=== PATIENT | female | born 1940 | race Caucasian/White ===

== ENCOUNTER 2017-11-23 13:24 | Outpatient (RCR) | payer MEDICARE, OTHER, SELFPAY ==
[2017-11-23 13:41] LABS: Prothrombin Time Fingerstick 19.9 SEC (11.9-14.4)
== END 2017-11-23 14:00 | disposition home or self-care (01) ==
LOC: LAB 13:24
PROVIDERS: Family Provider Internal Medicine; PCP Internal Medicine; Visit Provider Internal Medicine
DX: I82.409 Acute embolism and thrombosis of unspecified deep veins of unspecified lower extremity (principal); Z79.01 Long term (current) use of anticoagulants
CPT/HCPCS: 36416; 85610

== ENCOUNTER 2018-01-02 13:15 | Outpatient (RCR) | payer MEDICARE, OTHER, SELFPAY ==
[2018-01-02 13:31] LABS: Prothrombin Time Fingerstick 18.2 SEC (11.9-14.4)
== END 2018-01-02 14:00 | disposition home or self-care (01) ==
LOC: LAB 13:15
PROVIDERS: Family Provider Internal Medicine; PCP Internal Medicine; Visit Provider Internal Medicine
DX: Z79.01 Long term (current) use of anticoagulants (principal)
CPT/HCPCS: 36416; 85610

== ENCOUNTER 2018-01-23 14:17 | Outpatient (RCR) | payer MEDICARE, OTHER, SELFPAY ==
[2018-01-23 14:36] LABS: Prothrombin Time Fingerstick 20.3 SEC (11.9-14.4)
== END 2018-01-23 15:00 | disposition home or self-care (01) ==
LOC: LAB 14:17
PROVIDERS: Family Provider Internal Medicine; PCP Internal Medicine; Visit Provider Internal Medicine
DX: Z79.01 Long term (current) use of anticoagulants (principal)
CPT/HCPCS: 36416; 85610

== ENCOUNTER 2018-04-12 13:02 | Outpatient (RCR) | payer MEDICARE, OTHER, SELFPAY ==
[2018-04-12 14:02] LABS: Absolute Lymphocyte Count 1.53 X10^3/ul (0.83-4.51); Absolute Neutrophil Count 6.1 X10^3/uL (2.0-7.7); Basophil# 0.02 X10^3/uL; Basophil% 0.2 % (0-1); Eosinophil# 0.13 X10^3/uL; Eosinophils% 1.5 % (0-5); Hematocrit 34.1 % (37-47); Hemoglobin 11.2 g/dl (12.0-15.0); Lymphocyte # 1.53 X10^3/ul (4.0); Lymphocyte % 17.9 % (19-41); Mean Corp Hgb Conc 32.8 g/gl (32-36); Mean Corpuscular Hgb 28.5 pg (27.0-32.0); Mean Corpuscular Volume 86.8 fL (81-99); Mean Platelet Vol. 10.8 fl (6.2-12.0); Monocyte# 0.76 X10^3/uL; Monocyte% 8.9 % (0-10); Neutrophil # 6.09 X10^3/uL (2.7-7.7); Neutrophil % 71.4 % (47-70); POSITIVE COUNT NO; POSITIVE DIFFERENTIAL NO; POSITIVE MORPHOLOGY NO; Platelet Count 164 K/mm3 (150-450); RBC Distribution Width CV 13.8 % (11.6-14.6); RBC Distribution Width SD 44.1 fl (35.1-43.9); Red Blood Count 3.93 M/mm3 (4.2-5.4); White Blood Count 8.5 K/mm3 (4.4-11.0)
[2018-04-12 14:07] LABS: Prothrombin Time (Protime)PT. 22.9 SECONDS (11.7-14.9)
[2018-04-12 14:28] LABS: Hemoglobin A1c 6.8 % (4.2-6.3)
[2018-04-12 14:37] LABS: ALB/GLOB Ratio 1.2 RATIO (0.9-2.4); AST(SGOT) 17 U/L (15-37); Alanine Aminotransfer ALT/SGPT 24 U/L (13-56); Albumin, Serum 3.5 g/dL (3.2-5.0); Alkaline Phosphatase 83 U/L (45-117); Anion Gap 10 (5-15); BUN 29 mg/dL (7-18); BUN/Creat Ratio 15.6 RATIO (10-20); Calcium,Total 8.1 mg/dL (8.5-10.1); Chloride 99 mmol/L (98-107); Creatinine, Serum 1.86 mg/dL (0.55-1.02); EST Glomerular Filtration Rate 28 mL/min (>60); Est Glom Filt Rate - Afr Amer 34 mL/min (>60); Globulin 2.9 g/dL (2.2-4.2); Glucose 137 mg/dL (74-106); Potassium 4.7 mmol/L (3.5-5.1); Protein, Total 6.4 g/dL (6.4-8.2); Sodium Level 135 mmol/L (136-145)
== END 2018-04-12 14:00 | disposition home or self-care (01) ==
LOC: LAB 13:02
PROVIDERS: Family Provider Internal Medicine; PCP Internal Medicine; Visit Provider Internal Medicine
DX: E11.22 Type 2 diabetes mellitus with diabetic chronic kidney disease (principal); N18.3 Chronic kidney disease, stage 3 (moderate); Z79.01 Long term (current) use of anticoagulants
CPT/HCPCS: 80053; 83036; 85025; 85610

== ENCOUNTER → 2018-05-24 12:15 | Outpatient (CLI) | payer MEDICARE, OTHER, SELFPAY ==
[2018-05-24 14:00] LABS: Hematocrit 37.7 % (37-47); Hemoglobin 11.8 g/dl (12.0-15.0); Mean Corp Hgb Conc 31.3 g/gl (32-36); Mean Corpuscular Hgb 28.3 pg (27.0-32.0); Mean Corpuscular Volume 90.4 fL (81-99); Mean Platelet Vol. 10.6 fl (6.2-12.0); Platelet Count 198 K/mm3 (150-450); RBC Distribution Width CV 14.4 % (11.6-14.6); RBC Distribution Width SD 47.5 fl (35.1-43.9); Red Blood Count 4.17 M/mm3 (4.2-5.4); White Blood Count 12.9 K/mm3 (4.4-11.0)
[2018-05-24 14:02] LABS: Scan Indicated on CBC? Y/N NO
[2018-05-24 14:06] LABS: Microalbumin:Creatinine Ratio 26.4 mg/g CRE (<30 mg/g CRE)
[2018-05-24 14:09] LABS: Albumin, Serum 3.4 g/dL (3.2-5.0); BUN 36 mg/dL (7-18); BUN/Creat Ratio 22.6 RATIO (10-20); Calcium,Total 8.1 mg/dL (8.5-10.1); Chloride 105 mmol/L (98-107); Creatinine, Serum 1.59 mg/dL (0.55-1.02); EST Glomerular Filtration Rate 34 mL/min (>60); Est Glom Filt Rate - Afr Amer 41 mL/min (>60); Glucose 131 mg/dL (74-106); Phosphorus 2.8 mg/dL (2.5-4.9); Potassium 4.5 mmol/L (3.5-5.1); Sodium Level 138 mmol/L (136-145)
[2018-05-24 14:19] LABS: Vitamin D,25 Hydroxy 29.5 ng/mL (29.95-100.01)
[2018-05-24 14:20] LABS: PTHIN 186.4 pg/mL (18.4-80.1)
== END ==
PROVIDERS: Family Provider Internal Medicine; PCP Internal Medicine; Visit Provider Internal Medicine Nephrology
DX: N18.3 Chronic kidney disease, stage 3 (moderate) (principal)
CPT/HCPCS: 36415; 80069; 82043; 82306; 82570; 83970; 85027

== ENCOUNTER 2018-05-29 14:50 | Emergency (ER) | payer MEDICARE, OTHER, SELFPAY ==
[2018-05-29 14:51] VITALS: BP 125/70; PULSE 83; RESP 16; TEMP 36.7; O2SAT 97; BMI 16.5
--- NOTE | 2018-05-29 15:24 | ED.DCSUM_ITS ---
- ER Visit Summary Date of Service: 05/29/18 Chief Complaint: Generalized weakness History of Present Illness: The patient is a 77 F with generalized weakness for about 3 weeks. Apparently she was placed on azithromycin 3 times a week for a cough, she developed diarrhea, she is lightheaded, and about 6 days ago had an episode of fever which was 100.8?F this has not happened since then. Her biggest problem is generalized weakness, she has no chest pain shortness of breath she still has a cough she has not had diarrhea recently, she stopped they are a azithromycin as of 3 days ago. She called her physician who directed her to the emergency department. Physical Examination: Not appear in acute distress. Moist mucous membranes, no obvious facial deformity No C-spine tenderness supple neck. Regular rate and rhythm without any obvious murmurs Clear lungs bilaterally speaking in full sentences without any obvious respiratory distress Abdomen soft and nontender no guarding or rebound Moves all extremities without any difficulty or pain. Skin does not show any obvious rashes or lesions, no trauma. Alert oriented ?3 with no gross focal deficit Emergency Department Course and Treatment: Is unremarkable workup, she does have a urinary tract infection which will be treated. She is to follow-up with her PCP for further evaluation. I am unsure about the reason she was placed on azithromycin 3 times a week, but this can be solved with her PCP. At this time she is stable for discharge. Disposition: [Discharge stable condition] Impression: [Generalized weakness Urinary tract infection] This note was generated with [employer] dictation software. It may contain incorrect words, spelling, and punctuation that were not noted in review of the chart prior to signing ED Disposition - Plan for ED Patient: Chief Complaint: General Illness Referrals: Yudith Rosales [Primary Care Provider] -
--- NOTE | 2018-05-29 15:27 | RAD_ITS ---
STUDY: X-RAY CHEST REASON FOR EXAM: Female, 77 years old. Cough, weakness TECHNIQUE: Portable chest upright COMPARISON: 06/07/2016 chest x-ray, 03/24/2015 CT chest. FINDINGS: The patient is slightly rotated accounting for the differential density of the lung hernandez. Diffuse hyperinflation and hyperlucency with flattening of the hemidiaphragms, mild diffuse coarsening of pulmonary interstitium, consistent with underlying COPD/emphysema. A few small pulmonary nodules in the right and left upper lung are stable. A larger pulmonary nodule measuring 9.9 mm seen on the prior CT study of 2014 is not apparent on this chest x-ray. The lungs are otherwise clear. No effusion or pneumothorax. Normal cardiomediastinal silhouette, aniya and pleural margins. No acute osseous or upper abdominal process. RAD/Chest 1 View (Portable) IMPRESSION: Small pulmonary nodules of the right and left upper lung in a pattern that appears to be generally stable compared to prior imaging. 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 Electronically Signed: Allan Yap, at 16:31 EDT Tel , Service support ,
[2018-05-29 16:03] LABS: Absolute Lymphocyte Count 1.49 X10^3/ul (0.83-4.51); Absolute Neutrophil Count 6.2 X10^3/uL (2.0-7.7); Basophil# 0.01 X10^3/uL; Basophil% 0.1 % (0-1); Eosinophil# 0.16 X10^3/uL; Eosinophils% 1.9 % (0-5); Hematocrit 34.3 % (37-47); Hemoglobin 11.2 g/dl (12.0-15.0); Lymphocyte # 1.49 X10^3/ul (4.0); Lymphocyte % 17.7 % (19-41); Mean Corp Hgb Conc 32.7 g/gl (32-36); Mean Corpuscular Hgb 29.1 pg (27.0-32.0); Mean Corpuscular Volume 89.1 fL (81-99); Monocyte# 0.59 X10^3/uL; Neutrophil # 6.15 X10^3/uL (2.7-7.7); Neutrophil % 73.2 % (47-70); Platelet Count 147 K/mm3 (150-450); RBC Distribution Width CV 13.5 % (11.6-14.6); RBC Distribution Width SD 43.5 fl (35.1-43.9); Red Blood Count 3.85 M/mm3 (4.2-5.4); White Blood Count 8.4 K/mm3 (4.4-11.0)
[2018-05-29 16:09] LABS: POSITIVE COUNT NO; POSITIVE DIFFERENTIAL NO; POSITIVE MORPHOLOGY NO
[2018-05-29 16:10] LABS: AST(SGOT) 13 U/L (15-37); Alanine Aminotransfer ALT/SGPT 21 U/L (13-56); Albumin, Serum 3.3 g/dL (3.2-5.0); Alkaline Phosphatase 72 U/L (45-117); Anion Gap 6 (5-15); BUN 24 mg/dL (7-18); BUN/Creat Ratio 14.7 RATIO (10-20); Calcium,Total 8.2 mg/dL (8.5-10.1); Chloride 106 mmol/L (98-107); Creatinine, Serum 1.63 mg/dL (0.55-1.02); EST Glomerular Filtration Rate 33 mL/min (>60); Est Glom Filt Rate - Afr Amer 39 mL/min (>60); Estimated Creatinine Clearance 21.45 ml/min; Globulin 3.4 g/dL (2.2-4.2); Glucose 97 mg/dL (74-106); Potassium 4.8 mmol/L (3.5-5.1); Protein, Total 6.7 g/dL (6.4-8.2); Sodium Level 137 mmol/L (136-145)
[2018-05-29] MEDS: 0.9% Normal Saline 1,000 ML 1000 ML IV (16:11)
[2018-05-29 16:24] LABS: Mucous, Urine 0 SEEN /hpf (<or=2+)
[2018-05-29 16:27] LABS: Color, Urine Yellow (Yellow); Glucose, Dipstick Normal (Normal); Ketone-Dipstick Negative (Negative); Leukocyte Esterase-Dipstick 500 /ul (Negative); Nitrite-Dipstick Negative (Negative); Occult Blood-Urine 10 /ul (Negative); Protein-Dipstick 30 mg/dl (Negative); Urine Bilirubin Dipstick Negative (Negative); Urine Clarity Cloudy (Clear); Urine Urobilinogen Normal (Normal); Urine pH 6.5 (5.0 - 8.0)
[2018-05-29 16:34] LABS: White Blood Cells 10-25 SEEN /hpf (0-5)
[2018-05-29 16:35] LABS: Bacteria 3+ /hpf (None Seen); Red Blood Cells-Urine 5-10 SEEN /hpf (0-5); Squamous Epithelial Cells - UA 25-50 SEEN /hpf (5-10)
--- NOTE | 2018-05-29 18:02 | ED.DEP ---
ED Disposition - Plan for ED Patient: Disposition: Home or Assisted Living Chief Complaint: General Illness Instructions: ED UTI Cystitis Female, Dehydration Prescriptions: Nitrofurantoin Macrocrystal [Nitrofurantoin] 100 mg PO BID #20 cap Referrals: Yudith Rosales [Primary Care Provider] - 3-5 Days
[2018-05-29 18:12] VITALS: BP 124/64; PULSE 68; RESP 18; O2SAT 97
== END 2018-05-29 18:13 | disposition home or self-care (01) ==
PROVIDERS: Emergency Provider Emergency Medicine; Family Provider Internal Medicine; PCP Internal Medicine
DX: R53.1 Weakness (principal); N39.0 Urinary tract infection, site not specified; E86.0 Dehydration; I12.9 Hypertensive chronic kidney disease with stage 1 through stage 4 chronic kidney disease, or unspecified chronic kidney disease; N18.9 Chronic kidney disease, unspecified; J44.9 Chronic obstructive pulmonary disease, unspecified; K21.9 Gastro-esophageal reflux disease without esophagitis; Z79.01 Long term (current) use of anticoagulants; Z79.899 Other long term (current) drug therapy; Z72.0 Tobacco use
CPT/HCPCS: 71045; 80053; 81001; 84484; 85025; 96360; 96361; 99283; J7030; A4216

== ENCOUNTER 2018-06-14 12:54 | Outpatient (RCR) | payer MEDICARE, OTHER, SELFPAY ==
[2018-06-14 13:21] LABS: Prothrombin Time Fingerstick 25.5 SEC (11.9-14.4)
== END 2018-06-14 14:00 | disposition home or self-care (01) ==
LOC: LAB 12:54
PROVIDERS: Family Provider Internal Medicine; PCP Internal Medicine; Visit Provider Internal Medicine
DX: Z79.01 Long term (current) use of anticoagulants (principal)
CPT/HCPCS: 36416; 85610

== ENCOUNTER 2018-07-12 14:11 | Outpatient (RCR) | payer MEDICARE, OTHER, SELFPAY | END 2018-07-12 16:00 | disposition home or self-care (01) | LOC: LAB 14:11 | PROVIDERS: Family Provider Internal Medicine; PCP Internal Medicine; Visit Provider Internal Medicine | DX: Z79.01 Long term (current) use of anticoagulants (principal) | CPT/HCPCS: 36416; 85610 ==

== ENCOUNTER 2018-08-11 13:01 | Outpatient (RCR) | payer MEDICARE, OTHER, SELFPAY ==
[2018-08-11 13:16] LABS: Prothrombin Time Fingerstick 30.5 SEC (11.9-14.4)
== END 2018-08-11 14:00 | disposition home or self-care (01) ==
LOC: LAB 13:01
PROVIDERS: Family Provider Internal Medicine; PCP Internal Medicine; Referring Provider Internal Medicine; Visit Provider Internal Medicine
DX: Z79.01 Long term (current) use of anticoagulants (principal)
CPT/HCPCS: 36416; 85610

== ENCOUNTER 2018-09-18 11:02 | Outpatient (RCR) | payer MEDICARE, OTHER, SELFPAY ==
[2018-09-18 11:16] LABS: Prothrombin Time Fingerstick 32.5 SEC (11.9-14.4)
== END 2018-09-22 10:35 | disposition home or self-care (01) ==
LOC: LAB 11:02
PROVIDERS: Family Provider Internal Medicine; PCP Internal Medicine; Referring Provider Internal Medicine; Visit Provider Internal Medicine
DX: Z79.01 Long term (current) use of anticoagulants (principal)
CPT/HCPCS: 36416; 85610

== ENCOUNTER 2018-10-11 13:55 | Outpatient (RCR) | payer MEDICARE, OTHER, SELFPAY ==
[2018-08-28 13:56] VITALS: BMI 16.5
[2018-10-11 14:11] LABS: Prothrombin Time Fingerstick 37.6 SEC (11.9-14.4)
== END 2018-10-11 14:00 | disposition home or self-care (01) ==
LOC: LAB 13:55
PROVIDERS: Family Provider Internal Medicine; PCP Internal Medicine; Referring Provider Internal Medicine; Visit Provider Internal Medicine
DX: I82.409 Acute embolism and thrombosis of unspecified deep veins of unspecified lower extremity (principal); Z79.01 Long term (current) use of anticoagulants
CPT/HCPCS: 36416; 85610

== ENCOUNTER 2018-11-07 12:27 | Outpatient (RCR) | payer MEDICARE, OTHER, SELFPAY ==
[2018-08-28 13:56] VITALS: BMI 16.5
[2018-11-07 14:10] LABS: Protein, Urine (Random) 34.9 mg/dL (<11.9); Protein:Creat Ratio 273 mg/g CRE (0-200)
[2018-11-07 14:13] LABS: Hematocrit 37.7 % (37-47); Mean Corp Hgb Conc 31.8 g/gl (32-36); Mean Corpuscular Hgb 29.2 pg (27.0-32.0); Mean Corpuscular Volume 91.7 fL (81-99); Mean Platelet Vol. 10.3 fl (6.2-12.0); Platelet Count 217 K/mm3 (150-450); RBC Distribution Width CV 13.7 % (11.6-14.6); RBC Distribution Width SD 45.9 fl (35.1-43.9); Red Blood Count 4.11 M/mm3 (4.2-5.4); White Blood Count 13.2 K/mm3 (4.4-11.0)
[2018-11-07 14:14] LABS: Scan Indicated on CBC? Y/N NO
[2018-11-07 14:23] LABS: International Normalized Ratio 3.5; Prothrombin Time (Protime)PT. 35.3 SECONDS (11.7-14.9)
[2018-11-07 14:28] LABS: Hemoglobin A1c 8.3 % (4.2-6.3)
[2018-11-07 14:29] LABS: Albumin, Serum 3.3 g/dL (3.2-5.0); BUN 32 mg/dL (7-18); Calcium,Total 8.7 mg/dL (8.5-10.1); Chloride 104 mmol/L (98-107); EST Glomerular Filtration Rate 26 mL/min (>60); Est Glom Filt Rate - Afr Amer 31 mL/min (>60); Glucose 249 mg/dL (74-106); Phosphorus 3.2 mg/dL (2.5-4.9); Potassium 4.3 mmol/L (3.5-5.1); Sodium Level 138 mmol/L (136-145)
[2018-11-07 14:36] LABS: PTHIN 45.4 pg/mL (18.4-80.1)
[2018-11-07 14:38] LABS: Vitamin D,25 Hydroxy 24.8 ng/mL (29.95-100.01)
== END 2018-11-07 13:27 | disposition home or self-care (01) ==
LOC: LAB 12:27
PROVIDERS: Family Provider Internal Medicine; PCP Internal Medicine; Referring Provider Internal Medicine; Visit Provider Internal Medicine
DX: I82.409 Acute embolism and thrombosis of unspecified deep veins of unspecified lower extremity (principal); Z79.01 Long term (current) use of anticoagulants; E11.9 Type 2 diabetes mellitus without complications; N18.3 Chronic kidney disease, stage 3 (moderate)
CPT/HCPCS: 36415; 80069; 82306; 82570; 83036; 83970; 84156; 85027; 85610

== ENCOUNTER 2018-12-24 12:07 | Emergency (ER) | payer MEDICARE, OTHER, SELFPAY ==
[2018-12-24 12:08] VITALS: BP 137/78; PULSE 81; RESP 16; TEMP 36.6; O2SAT 98; BMI 16.2
--- NOTE | 2018-12-24 13:20 | RAD_ITS ---
STUDY: X-RAY CHEST REASON FOR EXAM: Female, 78 years old. Cough and fever TECHNIQUE: Frontal and lateral views of the chest were obtained. COMPARISON: May 29, 2018 FINDINGS: Lines and tubes: None. Lungs: Hyperinflated. No focal airspace opacities. Minimal scarring in the left apex. Pleura: No demonstrated abnormality. Mediastinum/aniya: Unremarkable. Cardiovascular: Normal size cardiac silhouette. Central vascularity unremarkable. Atherosclerotic calcifications in the thoracic aorta. Soft tissues: Unremarkable. Bones: Mild degenerative changes in spine and shoulders. Upper abdomen: No demonstrated abnormality. RAD/Chest PA and Lateral IMPRESSION: No evidence of focal consolidation or pleural effusion. Stable COPD. Electronically Signed: Judith Adhikari MD at 13:40 EST , Service support ,
--- NOTE | 2018-12-24 13:29 | ED.DCSUM_ITS ---
- ER Visit Summary Date of Service: 12/24/18 Chief Complaint: Cough and generalized weakness History of Present Illness: The patient is a 78 F past medical history diet- controlled diabetes, COPD and renal insufficiency. Prior DVT on Coumadin. States for about a week she has had a cough of yellowish sputum. With mild shortness of breath. Denies any nausea, vomiting diarrhea. No fever. States that she was seen in urgent care today had a negative checks x-ray done there and was sent of the ER. She states she feels weak all over. She denies any chest pain. Physical Examination: Older female. Vital signs are stable. Blood pressure 1 3778. Pulse ox 90% on room air no signs of hypoxia. Afebrile. She is in no distress. HEENT exam dry mucous membranes. Otherwise unremarkable. Neck nontender. No JVD. Lungs dry hacking cough but no rales, rhonchi or wheezing. Equal symmetrical. Heart regular rate and rhythm no murmur. Abdomen is soft and nontender. Normal bowel sounds no peritoneal signs. She is moving all 4 extremities. Calves are nontender. There is no edema. Neurologically she is awake and alert with no focal motor deficits. Test Results: Chest x-ray chronic changes consistent with COPD no acute process no infiltrate. Read both myself and the radiologist. CBC shows a normal white count of 10. Hemoglobin 11.6 which is around the patient's baseline. No bands. Electrolytes BUN 35 creatinine 2.54 she has chronic renal insufficiency. Gap is normal. INR is 2.7 she is on Coumadin. Emergency Department Course and Treatment: Patient be treated with IV fluids for clinical dehydration. Repeat exam patient is doing well at 1517. She got up out of bed and is ambulating the hallway with the nurse without any difficulty and she wants to be discharged to home. She and I and her family went over her test results. We will increase her prednisone 40 mg a day for 1 week. She will be started on Zithromax Z-PATSY given first dose in the ER. And follow-up with her primary care physician. Treatment Plan: Prednisone 40 mg a day. For 7 days. Zithromax Z-PATSY. Follow-up with a PCP. Disposition: dc Impression: Acute cough secondary to acute bronchitis Acute dehydration Acute exacerbation COPD Anticoagulated on Coumadin History of renal insufficiency This note was generated with Dragon dictation software. It may contain incorrect words, spelling, and punctuation that were not noted in review of the chart prior to signing ED Disposition - Plan for ED Patient: Referrals: Yudith Rosales [Primary Care Provider] -
[2018-12-24 13:41] LABS: Absolute Lymphocyte Count 1.12 X10^3/ul (0.83-4.51); Absolute Neutrophil Count 9.2 X10^3/uL (2.0-7.7); Basophil# 0.01 X10^3/uL; Basophil% 0.1 % (0-1); Hematocrit 36.8 % (37-47); Hemoglobin 11.6 g/dl (12.0-15.0); Lymphocyte # 1.12 X10^3/ul (4.0); Lymphocyte % 10.5 % (19-41); Mean Corp Hgb Conc 31.5 g/gl (32-36); Mean Corpuscular Hgb 28.6 pg (27.0-32.0); Mean Corpuscular Volume 90.6 fL (81-99); Mean Platelet Vol. 9.6 fl (6.2-12.0); Monocyte# 0.26 X10^3/uL; Monocyte% 2.4 % (0-10); Neutrophil # 9.21 X10^3/uL (2.7-7.7); Neutrophil % 86.7 % (47-70); Platelet Count 197 K/mm3 (150-450); RBC Distribution Width SD 46.3 fl (35.1-43.9); Red Blood Count 4.06 M/mm3 (4.2-5.4); White Blood Count 10.6 K/mm3 (4.4-11.0)
[2018-12-24 13:44] LABS: Anion Gap 10 (5-15); BUN 35 mg/dL (7-18); BUN/Creat Ratio 13.8 RATIO (10-20); Calcium,Total 8.8 mg/dL (8.5-10.1); Chloride 105 mmol/L (98-107); Creatinine, Serum 2.54 mg/dL (0.55-1.02); EST Glomerular Filtration Rate 20 mL/min (>60); Est Glom Filt Rate - Afr Amer 24 mL/min (>60); Estimated Creatinine Clearance 13.41 ml/min; Glucose 178 mg/dL (74-106); POSITIVE COUNT NO; POSITIVE DIFFERENTIAL NO; POSITIVE MORPHOLOGY NO; Potassium 4.7 mmol/L (3.5-5.1); Sodium Level 140 mmol/L (136-145)
[2018-12-24] MEDS: 0.9% Normal Saline 1,000 ML 1000 ML IV (13:46)
[2018-12-24 13:47] LABS: International Normalized Ratio 2.7; Prothrombin Time (Protime)PT. 28.8 SECONDS (11.7-14.9)
[2018-12-24 13:48] VITALS: BP 157/72; PULSE 75; RESP 18; TEMP 37; O2SAT 95
[2018-12-24 15:00] VITALS: BP 172/75; PULSE 94; RESP 20; TEMP 36.8; O2SAT 95
--- NOTE | 2018-12-24 15:24 | ED.DEP ---
ED Disposition - Plan for ED Patient: Disposition: Home or Assisted Living Instructions: ED COPD Flare Prescriptions: Azithromycin [Zithromax] 250 mg PO DAILY #4 tab Prednisone [Deltasone] 40 mg PO DAILY 7 Days #10 tab Referrals: Yudith Rosales [Primary Care Provider] - Additional Instructions: Follow-up your primary care physician this week. Return if feeling worse. Prednisone 40 mill grams a day for 1 week. Zithromax antibiotic start tomorrow we will give your first dose here prior to discharge.
[2018-12-24] MEDS: Azithromycin 250 MG Tablet 500 MG PO (15:35)
[2018-12-24] MEDS: predniSONE 20 MG Tablet 40 MG PO (15:36)
== END 2018-12-24 15:43 | disposition home or self-care (01) ==
PROVIDERS: Emergency Provider Emergency Medicine; Family Provider Internal Medicine; PCP Internal Medicine
DX: J44.1 Chronic obstructive pulmonary disease with (acute) exacerbation (principal); J20.9 Acute bronchitis, unspecified; J44.0 Chronic obstructive pulmonary disease with (acute) lower respiratory infection; N28.9 Disorder of kidney and ureter, unspecified; E86.0 Dehydration; Z86.718 Personal history of other venous thrombosis and embolism; Z79.01 Long term (current) use of anticoagulants; Z79.899 Other long term (current) drug therapy; Z72.0 Tobacco use
CPT/HCPCS: 71046; 80048; 85025; 85610; 96360; 96361; 99285; J7030; J7050; A4216

== ENCOUNTER 2019-01-17 11:46 | Emergency (ER) | payer MEDICARE, OTHER, SELFPAY ==
[2019-01-17] VITALS (7 sets, daily range): BP systolic 85–149; BP diastolic 55–87; PULSE 69–90; RESP 16–22; TEMP 36.8; O2SAT 95–98; BMI 16.5
--- NOTE | 2019-01-17 11:55 | EKG12_ITS ---
Test Reason : LIGHTHEADNESS Blood Pressure : / mmHG Vent. Rate : 080 BPM Atrial Rate : 080 BPM P-R Int : 128 ms QRS Dur : 082 ms QT Int : 388 ms P-R-T Axes : 082 078 090 degrees QTc Int : 447 ms Normal sinus rhythm Left ventricular hypertrophy with repolarization abnormality Abnormal ECG Confirmed by REYMUNDO GARAY, YANELY ([id number]), photograph editor LUIS MENDEZ ([id number]) on 01/18/2019 1:12:10 PM Referred By: PENG/DONELL Confirmed By:YANELY DWYER MD
--- NOTE | 2019-01-17 11:58 | NURSING ---
NO OLD EKGS
--- NOTE | 2019-01-17 12:08 | ED.DCSUM_ITS ---
History of Present Illness Chief Complaint: General Illness Detail of Chief Complaint: Weakness, lightheadedness and low blood pressure Informant: Patient Onset: Weeks - Approximately 1 week Timing: Continuous Quality: Lightheadedness with standing Location: Not applicable Current Severity: Mild Maximum Severity: Severe Worsened by: Change in position sitting to standing or supine to sitting Relieved by: Nothing Associated Symptoms: Patient also reports nonproductive cough. Narrative: Patient is an elderly woman who was recently admitted to [facility] for supratherapeutic INR, COPD exacerbation, renal failure, lung nodule and reports problems falling blood sugar because of prednisone. She denies fever, chills or night sweats. She does report weight loss. Uncertain amount of weight loss. She states her clothes are looser. She does report thirst, polydipsia, polyuria and nocturia. Prior similar symptoms: Yes Recent Illness/Hospitalization: Yes - Past Medical History (1) Acute exacerbation of chronic obstructive pulmonary disease (COPD) Status: Chronic (2) Benign essential HTN Status: Chronic (3) COLD (chronic obstructive lung disease) Status: Chronic (4) Diabetes mellitus Status: Chronic (5) FCHL (familial combined hyperlipidemia) Status: Chronic (6) Gastroesophageal reflux disease Status: Chronic (7) History of DVT (deep vein thrombosis) Status: Chronic (8) Solitary pulmonary nodule Status: Chronic (9) Tobacco abuse Status: Chronic (10) History of appendectomy Status: Resolved (11) History of hysterectomy Status: Resolved (12) History of skin graft Status: Resolved Past Medical History - Allergies and Home Meds Allergies/Adverse Reactions: Allergies diltiazem HCl [From Cardizem] Allergy (Verified 01/17/19 11:51) Angioedema gatifloxacin [From Tequin] Allergy (Verified 01/17/19 11:51) Unknown hydrochlorothiazide [From Maxzide] Allergy (Verified 01/17/19 11:51) Other Penicillins [PCN] Allergy (Verified 01/17/19 11:51) Hives triamterene [From Maxzide] Allergy (Verified 01/17/19 11:51) Other codeine Adverse Reaction (Verified 01/17/19 11:51) Upset Stomach Primary Care Physician: Yudith Rosales [Primary Care Provider] - Prior records reviewed: Yes Surgical History: noncontributory, hysterectomy Smoking Status: Current every day smoker Alcohol: None Drugs: None Review of Systems General: Reports: Malaise, Weight loss. Denies: Chills, Fever Eyes: Reports: Blurred Vision - bilaterally - Patient was informed this may be secondary to hyperglycemia since she has had blood sugar readings greater than 400.. Denies: Visual changes - bilaterally, Diplopia ENT: Denies: Bilateral ear pain, Rhinorrhea, Sore throat Cardiovascular: Denies: Chest pain, Palpitations Respiratory: Reports: Dyspnea, Cough, Dyspnea on exertion. Denies: Sputum, Orthopnea, Paroxysmal nocturnal dyspnea Gastrointestinal: Reports: Abdominal pain, Nausea, Vomiting, Diarrhea, Constipation, Melena, Hematochezia, -, - Genitourinary: Reports: Dysuria, Hematuria, Frequency, -, - Musculoskeletal: Reports: Myalgias, Arthralgias, Neck pain, Back pain, Swelling, Extremity Pain, -, - Skin: Denies: Rash, Wounds Neurological: Reports: Weakness, - - Orthostatic symptoms. Denies: Headache, Parasthesia, Numbness Endocrine: Reports: Polyuria, Polydipsia Hematologic: Denies: Easy bruising, Easy bleeding Allergy: Denies: Uticaria Physical Exam Vital Signs/Narrative: Vital Signs Temp Pulse Resp BP Pulse Ox 01/17/19 11:46 98.3 F 89 16 85/55 L 95 Inital Vital Signs reviewed: Yes - Patient states her blood pressure is not normally this low. General: Well developed, - - Pain woman Head: Normocephalic, Atraumatic Eyes: Perrl, EOMI. Negative for: Pale conjunctiva, Scleral icterus ENT: No rhinorrhea, Dry mucous membranes Neck: Supple, Nontender, No lymphadenopathy, No JVD Cardiovascular: Regular rate, Regular rhythm, No murmurs Respiratory: No distress, CTA bilaterally, Chest nontender, Diminished Abdomen: Soft, Nontender, Nondistended, Normal bowel sounds Back: Nontender, Normal Inspection Extremities: Nontender, No edema, - - DP pulses palpable bilaterally. Skin: Normal color, No rash. Negative for: Cyanosis, Jaundice Neurological: Alert, Oriented x3, Cranial nerves II-XII grossly intact, Normal Strength, Normal Sensation, Normal DTR Psychological: Normal affect, Normal Mood Diagnostic/Tx/Re-eval Impressions Chest X-Ray 01/17/19 12:10 IMPRESSION: Severe COPD. No evidence of acute superimposed focal lung infiltrate. Electronically Signed: Cristela Nayak MD at 12:50 EDT , Service support , 01/17/19 12:10 Chest 1 View (Portable) [RAD] Stat Laboratory Results 01/17/19 01/17/19 01/17/19 12:11 12:11 12:11 WBC 9.3 RBC 4.32 Hgb 12.3 Hct 38.1 MCV 88.2 MCH 28.5 MCHC 32.3 RDW 14.5 RDW Differential 47.0 H Plt Count 126 L MPV 9.7 Immature Gran % (Auto) 0.200 Neut % (Auto) 81.4 H Lymph % (Auto) 13.2 L [place] % (Auto) 4.4 Eos % (Auto) 0.6 Baso % (Auto) 0.2 Absolute Neuts (auto) 7.6 Absolute Lymphs (auto) 1.23 Total Counted Not Reportable PT 29.2 H INR 2.8 Sodium 137 Potassium 3.8 Chloride 99 Carbon Dioxide 28.0 Anion Gap 10 BUN 27 H Creatinine 1.99 H Estim Creat Clear Calc 17.29 Est GFR (MDRD) Af Amer 31 L Est GFR (MDRD) Non-Af 26 L BUN/Creatinine Ratio 13.6 Glucose 149 H Lactic Acid Calcium 8.5 Troponin I < 0.015 Urine Color Urine Clarity Urine pH Ur Specific [place] Urine Protein Urine Glucose (UA) Urine Ketones Urine Occult Blood Urine Nitrite Urine Bilirubin Urine Urobilinogen Ur Leukocyte Esterase Urine RBC Urine WBC Ur Squamous Epith Cells Urine Bacteria Urine Mucus 01/17/19 01/17/19 12:11 13:50 WBC RBC Hgb Hct MCV MCH MCHC RDW RDW Differential Plt Count MPV Immature Gran % (Auto) Neut % (Auto) Lymph % (Auto) [place] % (Auto) Eos % (Auto) Baso % (Auto) Absolute Neuts (auto) Absolute Lymphs (auto) Total Counted PT INR Sodium Potassium Chloride Carbon Dioxide Anion Gap BUN Creatinine Estim Creat Clear Calc Est GFR (MDRD) Af Amer Est GFR (MDRD) Non-Af BUN/Creatinine Ratio Glucose Lactic Acid 2.3 H Calcium Troponin I Urine Color Yellow Urine Clarity Clear Urine pH 6.5 Ur Specific [place] 1.010 Urine Protein Negative Urine Glucose (UA) Normal Urine Ketones 5 H Urine Occult Blood Negative Urine Nitrite Negative Urine Bilirubin Negative Urine Urobilinogen Normal Ur Leukocyte Esterase 25 H Urine RBC 0 SEEN Urine WBC 0-5 SEEN Ur Squamous Epith Cells 5-10 SEEN Urine Bacteria RARE Urine Mucus 0 SEEN Urine is consistent with a contaminated specimen. Patient was informed of results. - Rhythm Strip Rhythm Strip: Sinus Rhythm Rate: 76 Ectopy: None - EKG Initial EKG Interpretation: Sinus Rhythm - Ventricular rate is 80. There is evidence of left ventricular hypertrophy and repolarization changes. ME interval normal. QRS duration normal. QT interval normal. [place] is normal. - Medical Decision Making Since patient is hypotensive will administer fluid bolus. This may be secondary to GI bleed, hypovolemia, cardiac ischemia. Because there is a history of elevated PT/INR level was obtained. Will obtain CBC to assess white count and H&H determine there is a difference. Basic metabolic panel to assess electrolytes, BUN to creatinine ratio, CO2 and anion gap since she reports elevated blood sugars. Chest x-ray was ordered because of new cough. She was recently admitted for exacerbation of COPD. Patient's blood pressure after 1 L bolus 147 which is an improvement over 88. Patient states she feels better. Blood work is baseline for patient. Plan is to discharge to home with appropriate home-going instructions ED Disposition - Plan for ED Patient: Disposition: Home or Assisted Living Diagnosis: Hypotension, Lactic acidosis, Hyperglycemia due to type 2 diabetes mellitus, Benign essential HTN, History of DVT (deep vein thrombosis), Tobacco abuse Instructions: ED Hypotension All Causes Referrals: Yudith Rosales [Primary Care Provider] - 3-5 Days
--- NOTE | 2019-01-17 12:10 | RAD_ITS ---
STUDY: X-RAY CHEST REASON FOR EXAM: Female, 78 years old. COUGH, HYPOTENSION, RECENT BRONCHITIS TECHNIQUE: Single AP portable view of the chest. COMPARISON: December 24, 2018 FINDINGS: There is hyperinflation of the lungs consistent with severe chronic obstructive lung disease (COPD). There is no demonstrated pleural abnormality. Normal size heart. Normal mediastinum and aniya. Normal visualized pulmonary arteries. There is atherosclerotic tortuosity of the aortic arch and descending thoracic aorta. There is mild rotatory levoscoliosis of the visualized lumbar spine. Bilateral acromion clavicular joint hypertrophy present. There is no demonstrated abnormality of the visualized soft tissue structures of the upper abdomen. RAD/Chest 1 View (Portable) IMPRESSION: Severe COPD. No evidence of acute superimposed focal lung infiltrate. Electronically Signed: Cristela Nayak MD at 12:50 EDT , Service support ,
[2019-01-17 12:25] LABS: Absolute Lymphocyte Count 1.23 X10^3/ul (0.83-4.51); Absolute Neutrophil Count 7.6 X10^3/uL (2.0-7.7); Basophil# 0.02 X10^3/uL; Basophil% 0.2 % (0-1); Eosinophil# 0.06 X10^3/uL; Eosinophils% 0.6 % (0-5); Hematocrit 38.1 % (37-47); Hemoglobin 12.3 g/dl (12.0-15.0); Lymphocyte # 1.23 X10^3/ul (4.0); Lymphocyte % 13.2 % (19-41); Mean Corp Hgb Conc 32.3 g/gl (32-36); Mean Corpuscular Hgb 28.5 pg (27.0-32.0); Mean Corpuscular Volume 88.2 fL (81-99); Mean Platelet Vol. 9.7 fl (6.2-12.0); Monocyte# 0.41 X10^3/uL; Monocyte% 4.4 % (0-10); Neutrophil # 7.58 X10^3/uL (2.7-7.7); Neutrophil % 81.4 % (47-70); POSITIVE COUNT NO; POSITIVE DIFFERENTIAL NO; POSITIVE MORPHOLOGY NO; Platelet Count 126 K/mm3 (150-450); RBC Distribution Width CV 14.5 % (11.6-14.6); Red Blood Count 4.32 M/mm3 (4.2-5.4); White Blood Count 9.3 K/mm3 (4.4-11.0)
[2019-01-17] MEDS: 0.9% Normal Saline 1,000 ML 1000 ML IV (12:29)
[2019-01-17 12:35] LABS: Anion Gap 10 (5-15); BUN 27 mg/dL (7-18); BUN/Creat Ratio 13.6 RATIO (10-20); Calcium,Total 8.5 mg/dL (8.5-10.1); Chloride 99 mmol/L (98-107); Creatinine, Serum 1.99 mg/dL (0.55-1.02); EST Glomerular Filtration Rate 26 mL/min (>60); Est Glom Filt Rate - Afr Amer 31 mL/min (>60); Estimated Creatinine Clearance 17.29 ml/min; Glucose 149 mg/dL (74-106); Potassium 3.8 mmol/L (3.5-5.1); Sodium Level 137 mmol/L (136-145)
[2019-01-17 12:37] LABS: International Normalized Ratio 2.8; Prothrombin Time (Protime)PT. 29.2 SECONDS (11.7-14.9)
[2019-01-17 13:13] LABS: Lactic Acid 2.3 mmol/L (0.4-2.0)
[2019-01-17 13:55] LABS: Mucous, Urine 0 SEEN /hpf (<or=2+); Red Blood Cells-Urine 0 SEEN /hpf (0-5)
[2019-01-17 13:58] LABS: Color, Urine Yellow (Yellow); Glucose, Dipstick Normal (Normal); Ketone-Dipstick 5 mg/dl (Negative); Leukocyte Esterase-Dipstick 25 /ul (Negative); Nitrite-Dipstick Negative (Negative); Occult Blood-Urine Negative /ul (Negative); Protein-Dipstick Negative (Negative); Urine Bilirubin Dipstick Negative (Negative); Urine Clarity Clear (Clear); Urine Urobilinogen Normal (Normal); Urine pH 6.5 (5.0 - 8.0)
[2019-01-17 14:06] LABS: White Blood Cells 0-5 SEEN /hpf (0-5)
[2019-01-17 14:07] LABS: Bacteria RARE /hpf (None Seen); Squamous Epithelial Cells - UA 5-10 SEEN /hpf (5-10)
[2019-01-17 16:14] LABS: Reflex Lactate? Y
== END 2019-01-17 15:54 | disposition home or self-care (01) ==
PROVIDERS: Emergency Provider Emergency Medicine; Family Provider Internal Medicine; PCP Internal Medicine
DX: I95.9 Hypotension, unspecified (principal); E87.2 Acidosis; E11.65 Type 2 diabetes mellitus with hyperglycemia; I10 Essential (primary) hypertension; J44.9 Chronic obstructive pulmonary disease, unspecified; E78.49 Other hyperlipidemia; K21.9 Gastro-esophageal reflux disease without esophagitis; R91.1 Solitary pulmonary nodule; F17.200 Nicotine dependence, unspecified, uncomplicated; Z86.718 Personal history of other venous thrombosis and embolism; Z79.01 Long term (current) use of anticoagulants; Z79.899 Other long term (current) drug therapy
CPT/HCPCS: 71045; 80048; 81001; 83605; 84484; 85025; 85610; 93005; 96360; 96361; 99285; J7030; A4216

== ENCOUNTER 2019-02-05 12:45 | Outpatient (RCR) | payer MEDICARE, OTHER, SELFPAY ==
[2018-08-28 13:56] VITALS: BMI 16.5
[2019-01-17 11:46] VITALS: BMI 16.5
[2019-02-05 13:01] LABS: Prothrombin Time Fingerstick 19.8 SEC (11.9-14.4)
== END 2019-02-20 16:00 | disposition home or self-care (01) ==
LOC: LAB 12:45
PROVIDERS: Family Provider Internal Medicine; PCP Internal Medicine; Referring Provider Internal Medicine; Visit Provider Internal Medicine
DX: I82.409 Acute embolism and thrombosis of unspecified deep veins of unspecified lower extremity (principal); Z79.01 Long term (current) use of anticoagulants
CPT/HCPCS: 36416; 85610

== ENCOUNTER → 2019-04-13 16:07 | Outpatient (CLI) | payer MEDICARE, OTHER, SELFPAY ==
[2019-04-13 14:26] VITALS: BMI 15.0
== END ==
PROVIDERS: Family Provider Internal Medicine; PCP Internal Medicine; Referring Provider Nurse Practitioner Acute Care; Visit Provider Nurse Practitioner Acute Care
DX: R05 Cough (principal)
CPT/HCPCS: 87070; 87077; 87186; 87205

== ENCOUNTER 2019-04-19 13:15 | Outpatient (RCR) | payer MEDICARE, OTHER, SELFPAY ==
[2019-01-17 11:46] VITALS: BMI 16.5
[2019-02-28 12:32] VITALS: BMI 15.0
[2019-03-27 12:31] LABS: Prothrombin Time Fingerstick 24.3 SEC (11.9-14.4)
[2019-04-19 13:25] LABS: Prothrombin Time Fingerstick 30.3 SEC (11.9-14.4)
== END 2019-04-19 14:00 | disposition home or self-care (01) ==
LOC: LAB 13:15
PROVIDERS: Family Provider Internal Medicine; PCP Internal Medicine; Referring Provider Internal Medicine; Visit Provider Internal Medicine
DX: I82.409 Acute embolism and thrombosis of unspecified deep veins of unspecified lower extremity (principal)
CPT/HCPCS: 36416; 85610

== ENCOUNTER → 2019-05-16 12:31 | Outpatient (CLI) | payer MEDICARE, OTHER, SELFPAY ==
[2019-04-30 12:33] VITALS: BMI 14.5
--- NOTE | 2019-05-16 12:33 | US_ITS ---
STUDY: RENAL ULTRASOUND - COMPLETE REASON FOR EXAM: Female, 78 years old. Left kidney cyst. TECHNIQUE: Ultrasound evaluation of the kidneys was performed with real-time and static padilla-scale imaging. COMPARISON: CT dated February 28, 2012 FINDINGS: RIGHT KIDNEY: Normal location of the right kidney, which is normal in size. The right kidney measures 9.0 cm in length. There is a normal cortex of the right kidney. There is no right renal mass or cyst. There are no right renal calculi. There is no right hydronephrosis. DISTAL RIGHT URETER: There is no demonstrated right ureteral jet. LEFT KIDNEY: Normal location of the left kidney. The left kidney is atrophic. The left kidney measures 8.2 cm in length. There is a normal cortex of the left kidney. There are two simple cysts measuring 1.5 x 2.1 x 1.6 cm and 1.2 x 0.9 x 1.5 cm. There are no left renal calculi. There is no left hydronephrosis. DISTAL LEFT URETER: There is no demonstrated left ureteral jet. BLADDER: The bladder is incompletely distended. There is a normal wall thickness of the distended urinary bladder. There is no demonstrated mass within the urinary bladder. There are no demonstrated bladder calculi. The spleen measures 13.3 cm in the craniocaudal dimension. US/Kidney and Bladder IMPRESSION: Atrophic left kidney. Two simple left renal cysts. Mild splenomegaly. Electronically Signed: Nohemy Jovel MD at 16:51 EDT Tel , Service support ,
[2019-05-16 15:34] LABS: Hematocrit 34.2 % (37-47); Hemoglobin 10.7 g/dL (12.0-15.0); Mean Corp Hgb Conc 31.3 g/dL (32-36); Mean Corpuscular Hgb 27.2 pg (27.0-32.0); Mean Corpuscular Volume 86.8 fL (81-99); Mean Platelet Vol. 10.3 fl (6.2-12.0); Platelet Count 222 K/mm3 (150-450); RBC Distribution Width CV 14.4 % (11.6-14.6); RBC Distribution Width SD 45.7 fl (35.1-43.9); Red Blood Count 3.94 M/mm3 (4.2-5.4); White Blood Count 6.1 K/mm3 (4.4-11.0)
[2019-05-16 16:30] LABS: Hemoglobin A1c 7.2 % (4.2-6.3)
[2019-05-16 16:34] LABS: Albumin, Serum 3.2 g/dL (3.2-5.0); Anion Gap 8 (5-15); BUN 36 mg/dL (7-18); BUN/Creat Ratio 14.8 RATIO (10-20); Calcium,Total 8.8 mg/dL (8.5-10.1); Chloride 98 mmol/L (98-107); Creatinine, Serum 2.43 mg/dL (0.55-1.02); EST Glomerular Filtration Rate 21 mL/min (>60); Est Glom Filt Rate - Afr Amer 25 mL/min (>60); Glucose 93 mg/dL (74-106); Phosphorus 4.1 mg/dL (2.5-4.9); Potassium 5.2 mmol/L (3.5-5.1); Sodium Level 135 mmol/L (136-145)
[2019-05-17 09:13] LABS: PTHIN 55.9 pg/mL (18.4-80.1)
== END ==
PROVIDERS: Family Provider Internal Medicine; PCP Internal Medicine; Referring Provider Internal Medicine; Visit Provider Internal Medicine
DX: N28.1 Cyst of kidney, acquired (principal); N26.1 Atrophy of kidney (terminal); E11.22 Type 2 diabetes mellitus with diabetic chronic kidney disease; N18.3 Chronic kidney disease, stage 3 (moderate); E55.9 Vitamin D deficiency, unspecified; I82.409 Acute embolism and thrombosis of unspecified deep veins of unspecified lower extremity; Z79.01 Long term (current) use of anticoagulants
CPT/HCPCS: 36415; 76770; 80048; 82040; 82306; 83036; 83970; 84100; 85027; 85610

== ENCOUNTER 2019-05-16 13:50 | Outpatient (RCR) | payer MEDICARE, OTHER, SELFPAY ==
[2019-04-13 14:26] VITALS: BMI 15.0
[2019-04-30 12:33] VITALS: BMI 14.5
[2019-05-16 15:41] LABS: International Normalized Ratio 1.8; Prothrombin Time (Protime)PT. 20.5 SECONDS (11.7-14.9)
== END 2019-05-16 14:00 | disposition home or self-care (01) ==
LOC: LAB 13:50
PROVIDERS: Family Provider Internal Medicine; PCP Internal Medicine; Referring Provider Internal Medicine; Visit Provider Internal Medicine
DX: I82.409 Acute embolism and thrombosis of unspecified deep veins of unspecified lower extremity (principal); Z79.01 Long term (current) use of anticoagulants
CPT/HCPCS: 36415; 85610

== ENCOUNTER → 2019-05-17 11:44 | Outpatient (CLI) | payer MEDICARE, OTHER, SELFPAY ==
[2019-04-30 12:33] VITALS: BMI 14.5
== END ==
PROVIDERS: Family Provider Internal Medicine; PCP Internal Medicine; Referring Provider Internal Medicine Nephrology; Visit Provider Internal Medicine Nephrology
DX: N18.3 Chronic kidney disease, stage 3 (moderate) (principal)
CPT/HCPCS: 82570; 84156

== ENCOUNTER → 2019-05-18 11:33 | Outpatient (CLI) | payer MEDICARE, OTHER, SELFPAY ==
[2019-04-30 12:33] VITALS: BMI 14.5
[2019-05-18 12:09] LABS: Protein:Creat Ratio 286 mg/g CRE (0-200)
== END ==
PROVIDERS: Family Provider Internal Medicine; PCP Internal Medicine; Referring Provider Internal Medicine Nephrology; Visit Provider Internal Medicine Nephrology
DX: N18.3 Chronic kidney disease, stage 3 (moderate) (principal); E55.9 Vitamin D deficiency, unspecified
CPT/HCPCS: 82570; 84156

== ENCOUNTER → 2019-06-04 11:24 | Outpatient (CLI) | payer MEDICARE, OTHER, SELFPAY ==
[2019-04-30 12:33] VITALS: BMI 14.5
[2019-06-04 13:01] LABS: Creatinine, Serum 2.05 mg/dL (0.55-1.02); EST Glomerular Filtration Rate 25 mL/min (>60); Est Glom Filt Rate - Afr Amer 30 mL/min (>60)
[2019-06-04 13:23] LABS: 24 Hour Urine Protein 192.8 mg/24HR (<150 MG/24HR); 24HR. UA Prot. Total Volume 725 mL; Urine Protein (24 Hour) 26.6 mg/dL (<11.9)
[2019-06-04 13:33] LABS: Creat.Clear Total Volume 725 mL; Creatinine Clearance 21 ml/min (100-200); Creatinine Serum Creat 2.1 mg/dL (0.6-1.0); EST Glomerular Filtration Rate 24 mL/min (>60); Est Glom Filt Rate - Afr Amer 24 mL/min (>60)
[2019-06-04 13:35] LABS: Creatinine Urine < 13.0 mg/dL (NO RANGE EST.)
== END ==
PROVIDERS: Family Provider Internal Medicine; PCP Internal Medicine; Referring Provider Internal Medicine Nephrology; Visit Provider Internal Medicine Nephrology
DX: R80.9 Proteinuria, unspecified (principal)
CPT/HCPCS: 82565; 82575; 84156

== ENCOUNTER 2019-06-04 11:26 | Outpatient (RCR) | payer MEDICARE, OTHER, SELFPAY ==
[2019-04-30 12:33] VITALS: BMI 14.5
[2019-06-04 12:31] LABS: International Normalized Ratio 2.9; Prothrombin Time (Protime)PT. 30.5 SECONDS (11.7-14.9)
== END 2019-06-04 12:00 | disposition home or self-care (01) ==
LOC: LAB 11:26
PROVIDERS: Family Provider Internal Medicine; PCP Internal Medicine; Referring Provider Internal Medicine; Visit Provider Internal Medicine
DX: I82.409 Acute embolism and thrombosis of unspecified deep veins of unspecified lower extremity (principal); Z79.01 Long term (current) use of anticoagulants; R80.9 Proteinuria, unspecified
CPT/HCPCS: 36415; 82565; 82575; 84156; 85610

== ENCOUNTER 2019-06-15 12:42 | Emergency (ER) | payer MEDICARE, OTHER, SELFPAY ==
[2019-06-07 12:49] VITALS: BMI 14.5
[2019-06-15 12:42] VITALS: BP 119/70; PULSE 91; RESP 24; TEMP 36.6; O2SAT 96; BMI 15.0
--- NOTE | 2019-06-15 13:02 | EKG12_ITS ---
Test Reason : SOB Blood Pressure : / mmHG Vent. Rate : 082 BPM Atrial Rate : 082 BPM P-R Int : 122 ms QRS Dur : 078 ms QT Int : 396 ms P-R-T Axes : 081 086 075 degrees QTc Int : 462 ms Sinus rhythm with occasional Premature ventricular complexes Otherwise normal ECG Confirmed by REYMUNDO GARAY, YANELY ([id number]), makeup editor LUIS MENDEZ ([id number]) on 06/18/2019 11:57:58 AM Referred By: PENG Confirmed By:YANELY DWYER MD
--- NOTE | 2019-06-15 13:02 | RAD_ITS ---
STUDY: X-RAY CHEST REASON FOR EXAM: Female, 78 years old. Cough TECHNIQUE: PA and lateral views of the chest. COMPARISON: 01/17/2019 FINDINGS: There is hyperinflation of the lungs consistent with chronic obstructive lung disease (COPD). There is demonstrated probable chronic pleural parenchymal change bilaterally. Normal size heart. Normal mediastinum and aniya. Normal visualized pulmonary arteries. Normal visualized aortic arch and descending thoracic aorta. There are diffuse degenerative changes of the visualized thoracic spine. There is degenerative osteoarthritis of the bilateral shoulders. There is no demonstrated abnormality of the visualized soft tissue structures of the upper abdomen. RAD/Chest PA and Lateral IMPRESSION: COPD. No definite pneumonia or CHF. Electronically Signed: Bharat Arauz MD at 14:34 EDT Tel [phone], Service support ,
--- NOTE | 2019-06-15 13:21 | ED.DCSUM_ITS ---
History of Present Illness Chief Complaint: Shortness of Breath Informant: Patient Onset: Weeks - Set 1 week worse past 48 hours Context: Gradual Onset Timing: Continuous Quality: Shortness of breath, productive cough Location: Respiratory Current Severity: Moderate Maximum Severity: Severe Worsened by: Coughing and exertion Relieved by: Nothing Associated Symptoms: Respiratory only Narrative: Patient is a 78-year-old woman with history of COPD who smokes 1 pack/day who presents with shortness of breath started 1 week ago and is worse over the past 48 hours. She reports productive cough of colored sputum. She does not normally have colored sputum. She denies fever, chills or night sweats. She denies ocular, visual auditory symptoms. She denies chest discomfort. He does have history of DVT x2 on Coumadin. She denies pleuritic chest pain. She denies hematemesis, no hematochezia. She denies leg pain or swelling. The DVT was diagnosed 2 years ago. 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 (9) Solitary pulmonary nodule Status: Chronic Past Medical History - Allergies and Home Meds Allergies/Adverse Reactions: Allergies diltiazem HCl [From Cardizem] Allergy (Verified 06/07/19 12:34) Angioedema gatifloxacin [From Tequin] Allergy (Verified 06/07/19 12:34) Unknown hydrochlorothiazide [From Maxzide] Allergy (Verified 06/07/19 12:34) Other Penicillins [PCN] Allergy (Verified 06/07/19 12:34) Hives triamterene [From Maxzide] Allergy (Verified 06/07/19 12:34) Other codeine Adverse Reaction (Verified 06/07/19 12:34) Upset Stomach Primary Care Physician: Yudith Rosales [Primary Care Provider] - Prior records reviewed: Yes Surgical History: noncontributory, hysterectomy Lives: Alone Smoking Status: Current every day smoker Alcohol: None Drugs: None Review of Systems General: Denies: Chills, Fever, Sweats Eyes: Denies: Visual changes - bilaterally, Diplopia ENT: Denies: Rhinorrhea, Sore throat Cardiovascular: Denies: Chest pain, Palpitations, Heart racing, -, - Respiratory: Reports: Dyspnea, Cough, Sputum, Dyspnea on exertion. Denies: Orthopnea, Paroxysmal nocturnal dyspnea Gastrointestinal: Denies: Abdominal pain, Nausea, Vomiting, Diarrhea, Melena, Hematochezia Genitourinary: Denies: Dysuria, Hematuria, Frequency Musculoskeletal: Denies: Myalgias, Arthralgias, Neck pain, Back pain, Swelling, Extremity Pain Skin: Denies: Rash, Abscess, Abrasions, Wounds Neurological: Denies: Headache, Weakness, Numbness Hematologic: Denies: Easy bruising, Easy bleeding Allergy: Denies: Uticaria, Swelling of the mouth Physical Exam Vital Signs/Narrative: Vital Signs Temp Pulse Resp BP Pulse Ox 06/15/19 12:42 98 F 91 24 H 119/70 96 Inital Vital Signs reviewed: Yes General: Well nourished, Well developed, Acute Distress Head: Normocephalic, Atraumatic Eyes: Perrl, EOMI ENT: Moist mucous membranes, No rhinorrhea Neck: Supple, Nontender Cardiovascular: Regular rate, Regular rhythm, No murmurs, Normal S1, Normal S2 Respiratory: Chest nontender, Wheezing, Decreased Air Movement Abdomen: Soft, Nontender, Nondistended, Normal bowel sounds, No masses Back: Nontender, Normal Inspection. Negative for: CVA tenderness Extremities: Nontender, No edema, Edema, - - There is no asymmetry, swelling, discoloration, leg vein distention, palpable cords or tenderness along the distribution of the deep venous system. Skin: Normal color, No rash, No Trauma. Negative for: Cyanosis, Diaphoresis, Jaundice Neurological: Alert, Oriented x3, Cranial nerves II-XII grossly intact, Normal Strength, Normal Sensation, Normal DTR Psychological: Normal affect, Normal Mood Diagnostic/Tx/Re-eval Chest X-Ray - ED: 2 View, Read by ED Physician, Unchanged, Normal, Heart, Mediastinum, Bony Structures, No Acute Disease, Chronic Changes, - - Hyper aeration and changes consistent with chronic obstructive pulmonary disease. Impressions Chest X-Ray 06/15/19 13:02 IMPRESSION: COPD. No definite pneumonia or CHF. Electronically Signed: Bharat Arauz MD at 14:34 EDT Tel [phone], Service support , 06/15/19 13:02 Chest PA and Lateral [RAD] Stat Laboratory Results 06/15/19 06/15/19 06/15/19 13:10 13:10 13:10 WBC 9.2 RBC 4.39 Hgb 11.7 L Hct 37.2 MCV 84.7 MCH 26.7 L MCHC 31.5 L RDW Std Deviation 44.9 H RDW Coeff of [place] 14.6 Plt Count 225 MPV 10.9 Immature Gran % (Auto) 0.200 Neut % (Auto) 65.2 Lymph % (Auto) 21.8 [place] % (Auto) 8.7 Eos % (Auto) 3.6 Baso % (Auto) 0.5 Absolute Neuts (auto) 6.0 Absolute Lymphs (auto) 2.01 Nucleated RBC % 0 PT 33.3 H INR 3.2 Sodium 138 Potassium 4.3 Chloride 103 Carbon Dioxide 27.0 Anion Gap 8 BUN 26 H Creatinine 2.30 H Estim Creat Clear Calc 13.64 Est GFR (MDRD) Af Amer 26 L Est GFR (MDRD) Non-Af 22 L BUN/Creatinine Ratio 11.3 Glucose 116 H Calcium 8.8 Troponin I < 0.015 Triple my interpretation reveals chronic changes. There is no infiltrate or evidence of pneumothorax. Blood work is remarkable for creatinine of 2.3. INR is 3.2. - Medical Decision Making Pre-and physical are concerning for exacerbation of COPD and chronic bronchitis. Need to evaluate for pneumonia. Doubt pulmonary embolus. Will obtain PT/INR since patient on Coumadin and appropriate blood work. She received 125 mg Solu- Medrol, DuoNeb and albuterol aerosol treatments. With nephrology. Since patient is not fluid overloaded she will not require placement of Vas-Cath. She has an appointment to be seen next Tuesday by her machine cloth examiner. ED Disposition - Plan for ED Patient: Disposition: Home or Assisted Living Diagnosis: Asthma exacerbation in COPD, Bronchitis, chronic, Bronchospasm, acute Instructions: Copd Flare Prescriptions: Prednisone [Deltasone] 40 mg PO DAILY #10 tab Transmission Status: Pending to [id number] Doxycycline 100 mg PO BID #14 cap Transmission Status: Pending to [id number] Referrals: Yudith Rosales [Primary Care Provider] - 3-5 Days Additional Instructions: Prescription's were electronically transmitted to designated pharmacy of choice. Keep your scheduled appointment with nephrology on Tuesday, June 19.
[2019-06-15 13:22] LABS: Absolute Lymphocyte Count 2.01 X10^3/uL (0.83-4.51); Basophil# 0.05 X10^3/uL; Basophil% 0.5 % (0-1); Eosinophil# 0.33 X10^3/uL; Eosinophils% 3.6 % (0-5); Hematocrit 37.2 % (37-47); Hemoglobin 11.7 g/dL (12.0-15.0); Lymphocyte # 2.01 X10^3/ul (4.0); Lymphocyte % 21.8 % (19-41); Mean Corp Hgb Conc 31.5 g/dL (32-36); Mean Corpuscular Hgb 26.7 pg (27.0-32.0); Mean Corpuscular Volume 84.7 fL (81-99); Mean Platelet Vol. 10.9 fl (6.2-12.0); Monocyte% 8.7 % (0-10); NRBC Flagged by Analyzer 0 % (0-5); Neutrophil # 6.03 X10^3/uL (2.7-7.7); Neutrophil % 65.2 % (47-70); Platelet Count 225 K/mm3 (150-450); RBC Distribution Width CV 14.6 % (11.6-14.6); RBC Distribution Width SD 44.9 fl (35.1-43.9); Red Blood Count 4.39 M/mm3 (4.2-5.4); White Blood Count 9.2 K/mm3 (4.4-11.0)
[2019-06-15 13:29] VITALS: PULSE 88; RESP 22
[2019-06-15] MEDS: Ipratropium/Albuterol Sulfate 3 ML AMPUL.NEB INHALATION (13:29)
[2019-06-15] MEDS: Albuterol 2.5 MG/3 ML VIAL.NEB. INHALATION ×2 (13:29→13:52)
[2019-06-15 13:31] LABS: International Normalized Ratio 3.2; Prothrombin Time (Protime)PT. 33.3 SECONDS (11.7-14.9)
[2019-06-15 13:45] LABS: Anion Gap 8 (5-15); BUN 26 mg/dL (7-18); BUN/Creat Ratio 11.3 RATIO (10-20); Calcium,Total 8.8 mg/dL (8.5-10.1); Chloride 103 mmol/L (98-107); EST Glomerular Filtration Rate 22 mL/min (>60); Est Glom Filt Rate - Afr Amer 26 mL/min (>60); Estimated Creatinine Clearance 13.64 ml/min; Glucose 116 mg/dL (74-106); Potassium 4.3 mmol/L (3.5-5.1); Sodium Level 138 mmol/L (136-145)
[2019-06-15] MEDS: MethylPREDNISolone 125 MG/2 ML Vial IV (13:45)
[2019-06-15 13:49] VITALS: BP 149/99; PULSE 91; RESP 24; TEMP 36.6; O2SAT 96
[2019-06-15 14:33] VITALS: BP 179/119; PULSE 92
[2019-06-15 15:30] VITALS: BP 141/69; PULSE 87; RESP 18; TEMP 36.6; O2SAT 99
== END 2019-06-15 15:31 | disposition home or self-care (01) ==
PROVIDERS: Emergency Provider Emergency Medicine; Family Provider Internal Medicine; PCP Internal Medicine
DX: J44.1 Chronic obstructive pulmonary disease with (acute) exacerbation (principal); F17.200 Nicotine dependence, unspecified, uncomplicated; I10 Essential (primary) hypertension; K90.0 Celiac disease; E11.9 Type 2 diabetes mellitus without complications; K21.9 Gastro-esophageal reflux disease without esophagitis; E78.49 Other hyperlipidemia; Z86.718 Personal history of other venous thrombosis and embolism; Z79.01 Long term (current) use of anticoagulants; Z79.899 Other long term (current) drug therapy
CPT/HCPCS: 71046; 80048; 84484; 85025; 85610; 93005; 94640; 96374; 99284; A4216

== ENCOUNTER → 2019-07-02 13:49 | Outpatient (CLI) | payer MEDICARE, OTHER, SELFPAY ==
[2019-06-15 12:42] VITALS: BMI 15.0
[2019-07-02 18:49] LABS: Hepatitis B Surface Antigen Nonreactive (Nonreactive)
== END ==
PROVIDERS: Family Provider Internal Medicine; PCP Internal Medicine; Referring Provider Internal Medicine Nephrology; Visit Provider Internal Medicine Nephrology
DX: N18.6 End stage renal disease (principal)
CPT/HCPCS: 36415; 87340

== ENCOUNTER 2019-07-24 11:36 | Outpatient (RCR) | payer MEDICARE, OTHER, SELFPAY ==
[2019-07-24 15:36] LABS: Prothrombin Time Fingerstick 32.6 SEC (11.9-14.4)
[2019-08-16 15:55] LABS: Prothrombin Time Fingerstick 32.6 SEC (11.9-14.4)
== END 2019-07-24 18:00 | disposition home or self-care (01) ==
LOC: LAB 11:36
PROVIDERS: Family Provider Internal Medicine; PCP Internal Medicine; Referring Provider Internal Medicine; Visit Provider Internal Medicine
DX: I82.409 Acute embolism and thrombosis of unspecified deep veins of unspecified lower extremity (principal); Z79.01 Long term (current) use of anticoagulants
CPT/HCPCS: 36416; 85610

== ENCOUNTER 2019-09-17 12:13 | Outpatient (RCR) | payer MEDICARE, OTHER, SELFPAY ==
[2019-09-04 14:47] VITALS: BMI 15.0
[2019-09-17 12:51] LABS: Prothrombin Time Fingerstick 21.3 SEC (11.9-14.4)
== END 2019-09-17 18:00 | disposition home or self-care (01) ==
LOC: LAB 12:13
PROVIDERS: Family Provider Internal Medicine; PCP Internal Medicine; Referring Provider Internal Medicine; Visit Provider Internal Medicine
DX: I82.409 Acute embolism and thrombosis of unspecified deep veins of unspecified lower extremity (principal); Z79.01 Long term (current) use of anticoagulants
CPT/HCPCS: 36416; 85610

== ENCOUNTER 2019-09-29 15:13 | Emergency (ER) | payer MEDICARE, OTHER, SELFPAY ==
[2019-09-04 14:47] VITALS: BMI 15.0
[2019-09-29 15:15] VITALS: BP 182/92; PULSE 85; RESP 18; TEMP 36.8; O2SAT 96; BMI 14.9
--- NOTE | 2019-09-29 15:41 | EKG12_ITS ---
Test Reason : SOB Blood Pressure : / mmHG Vent. Rate : 077 BPM Atrial Rate : 288 BPM P-R Int : 000 ms QRS Dur : 084 ms QT Int : 400 ms P-R-T Axes : 000 087 080 degrees QTc Int : 452 ms Normal sinus rhythm Nonspecific ST abnormality Abnormal ECG Confirmed by GERARDO GARAY, SUSY ([id number]), social media editor MARLON BIANCHI ([id number]) on 09/30/2019 12:05:57 PM Referred By: LIANNE Confirmed By:NISHI CARRILLO MD
--- NOTE | 2019-09-29 15:48 | ED.DCSUM_ITS ---
- ER Visit Summary Date of Service: 09/29/19 Chief Complaint: Shortness of breath and wheezing History of Present Illness: The patient is a 79 F with multiple DVTs before on warfarin, noncemented diabetes, end-stage renal disease dialysis, COPD without oxygen and history of severe [place]. They states last 2 days she has had a cough of abel sputum. Low-grade fever 100.5. Was seen in urgent care and sent to the emergency department. There they reportedly did a blood pressure and it was low but she is had multiple blood pressure since that time by both the squad and the emergency department involvement over 100. She denies any vomiting diarrhea or melena. She denies any chest pain. Physical Examination: Elderly female vital signs are stable afebrile pulse ox 96% on room air no signs of hypoxia. Initial pressure is 182/92. She is in no distress. H EENT exam unremarkable. Moist extremities. Neck nontender no JVD no lymphadenopathy. Lungs coarse breath sounds bilaterally. Prolonged expiratory phase. Heart regular rhythm no murmur rate about 90. Abdomen soft nontender normal bowel sounds no peritoneal signs. Remedies moves all 4. Calves nontender no edema no cords. Neurologically she is awake alert moving all 4 extremities. No focal motor deficits. Test Results: Chest x-ray shows chronic changes right Vas-Cath no acute process. Consistent with COPD. Read both by myself and radiologist. 2 views. EKG sinus rhythm rate of 77 no acute signs of OH or ischemia. White count of 7. Hemoglobin 13. Chemistries unremarkable BUN 16 creatinine 1.6 which is her baseline. Gap is 6. Troponin less than 0.015. Emergency Department Course and Treatment: Patient treated with aerosol treatments DuoNeb and albuterol. P.o. prednisone. Chest x-ray and labs will be obtained. Treatment Plan: Repeat exam patient is doing well at 1745. We went over all of her test results. She will be started on prednisone for home. She already has breathing treatments at home. Disposition: Discharge Impression: Acute dyspnea Acute exacerbation of COPD This note was generated with [employer] dictation software. It may contain incorrect words, spelling, and punctuation that were not noted in review of the chart prior to signing ED Disposition - Plan for ED Patient: Referrals: Yudith Rosales [Primary Care Provider] -
[2019-09-29 15:57] LABS: Absolute Neutrophil Count 5.3 X10^3/uL (2.0-7.7); Basophil# 0.02 X10^3/uL; Basophil% 0.3 % (0-1); Eosinophil# 0.09 X10^3/uL; Eosinophils% 1.2 % (0-5); Hematocrit 43.3 % (37-47); Hemoglobin 13.7 g/dL (12.0-15.0); Lymphocyte % 21.9 % (19-41); Mean Corp Hgb Conc 31.6 g/dL (32-36); Mean Corpuscular Hgb 29.9 pg (27.0-32.0); Mean Corpuscular Volume 94.5 fL (81-99); Mean Platelet Vol. 10.4 fl (6.2-12.0); Monocyte% 7.7 % (0-10); NRBC Flagged by Analyzer 0 % (0-5); Neutrophil # 5.32 X10^3/uL (2.7-7.7); Neutrophil % 68.6 % (47-70); Platelet Count 175 K/mm3 (150-450); RBC Distribution Width CV 14.6 % (11.6-14.6); RBC Distribution Width SD 51.1 fl (35.1-43.9); Red Blood Count 4.58 M/mm3 (4.2-5.4); White Blood Count 7.8 K/mm3 (4.4-11.0)
[2019-09-29 16:03] VITALS: PULSE 82; RESP 18
[2019-09-29] MEDS: Ipratropium/Albuterol Sulfate 3 ML AMPUL.NEB INHALATION (16:03)
[2019-09-29 16:14] LABS: Anion Gap 6 (5-15); BUN 16 mg/dL (7-18); BUN/Creat Ratio 9.8 RATIO (10-20); Calcium,Total 8.8 mg/dL (8.5-10.1); Chloride 100 mmol/L (98-107); Creatinine, Serum 1.64 mg/dL (0.55-1.02); EST Glomerular Filtration Rate 32 mL/min (>60); Est Glom Filt Rate - Afr Amer 39 mL/min (>60); Estimated Creatinine Clearance 18.74 ml/min; Glucose 58 mg/dL (74-106); Potassium 3.7 mmol/L (3.5-5.1); Sodium Level 139 mmol/L (136-145)
[2019-09-29 16:15] LABS: International Normalized Ratio 1.7; Prothrombin Time (Protime)PT. 19.4 SECONDS (11.7-14.9)
[2019-09-29] MEDS: Albuterol 2.5 MG/3 ML VIAL.NEB. INHALATION ×2 (16:18→16:30)
--- NOTE | 2019-09-29 16:50 | RAD_ITS ---
STUDY: X-RAY CHEST REASON FOR EXAM: Female, 79 years old. Cough and dyspnea. TECHNIQUE: PA and lateral views of the chest. COMPARISON: June 15, 2019. FINDINGS: There is a right jugular hemodialysis catheter with its tip at the atriocaval junction. There is no pneumothorax. The lungs are hyperexpanded. There is chronic interstitial coarsening without acute infiltrate or mass. There is no demonstrated pleural abnormality. Normal size heart. Normal mediastinum and aniya. Normal visualized pulmonary arteries. There is atherosclerotic calcification of the aortic arch with tortuosity. There are diffuse degenerative changes of the visualized thoracic spine. There is degenerative osteoarthritis of the bilateral shoulders. There is no demonstrated abnormality of the visualized soft tissue structures of the upper abdomen. RAD/Chest PA and Lateral IMPRESSION: 1. Interval placement of a jugular hemodialysis catheter without pneumothorax. 2. Stable COPD without acute infiltrate or mass. Electronically Signed: Tarik Villagomez DO at 17:12 EST Tel [phone], Service support ,
[2019-09-29] MEDS: predniSONE 20 MG Tablet 60 MG PO (17:43)
--- NOTE | 2019-09-29 18:01 | ED.DEP ---
ED Disposition - Plan for ED Patient: Disposition: Home or Assisted Living Instructions: Copd Flare Prescriptions: Prednisone [Deltasone] 40 mg PO DAILY 7 Days tab Prescription Printed Referrals: Yudith Rosales [Primary Care Provider] - 3-5 Days Additional Instructions: Use your prednisone daily. This will decrease your wheezing. If it is affecting her blood sugars too much you can use it intermittently. Follow-up with your doctor if not improving return to ER if worse.
== END 2019-09-29 18:07 | disposition home or self-care (01) ==
PROVIDERS: Emergency Provider Emergency Medicine; Family Provider Internal Medicine; PCP Internal Medicine
DX: J44.1 Chronic obstructive pulmonary disease with (acute) exacerbation (principal); I12.0 Hypertensive chronic kidney disease with stage 5 chronic kidney disease or end stage renal disease; E11.22 Type 2 diabetes mellitus with diabetic chronic kidney disease; N18.6 End stage renal disease; Z99.2 Dependence on renal dialysis; F17.200 Nicotine dependence, unspecified, uncomplicated; Z79.84 Long term (current) use of oral hypoglycemic drugs; Z79.899 Other long term (current) drug therapy
CPT/HCPCS: 71046; 80048; 84484; 85025; 85610; 93005; 94640; 99285; A4216

== ENCOUNTER 2019-10-15 10:50 | Outpatient (RCR) | payer MEDICARE, OTHER, SELFPAY ==
[2019-09-04 14:47] VITALS: BMI 15.0
[2019-10-15 11:24] LABS: International Normalized Ratio 2.3; Prothrombin Time (Protime)PT. 25.3 SECONDS (11.7-14.9)
== END 2019-10-15 18:00 | disposition home or self-care (01) ==
LOC: LAB 10:50
PROVIDERS: Family Provider Internal Medicine; PCP Internal Medicine; Referring Provider Internal Medicine; Visit Provider Internal Medicine
DX: I82.409 Acute embolism and thrombosis of unspecified deep veins of unspecified lower extremity (principal); Z79.01 Long term (current) use of anticoagulants
CPT/HCPCS: 36415; 85610

== ENCOUNTER 2019-11-15 13:21 | Outpatient (RCR) | payer MEDICARE, MEDICAID, OTHER, SELFPAY ==
[2019-11-01 13:51] LABS: Prothrombin Time Fingerstick 30.2 SEC (11.9-14.4)
[2019-11-15 16:20] LABS: Prothrombin Time Fingerstick 35.9 SEC (11.9-14.4)
== END 2019-11-15 18:00 | disposition home or self-care (01) ==
LOC: LAB 13:21
PROVIDERS: Family Provider Internal Medicine; PCP Internal Medicine; Referring Provider Internal Medicine; Visit Provider Internal Medicine
DX: I82.90 Acute embolism and thrombosis of unspecified vein (principal); Z79.01 Long term (current) use of anticoagulants
CPT/HCPCS: 36416; 85610

== ENCOUNTER → 2019-12-07 10:35 | Outpatient (CLI) | payer MEDICARE, MEDICAID, OTHER, SELFPAY ==
[2019-12-07 11:07] LABS: 24 Hour Urine Protein 274.4 mg/24HR (<150 MG/24HR); 24HR. UA Prot. Total Volume 550 mL; Urine Protein (24 Hour) 49.9 mg/dL (<11.9)
[2019-12-07 11:55] LABS: Anion Gap 5 (5-15); BUN 41 mg/dL (7-18); BUN/Creat Ratio 20.7 RATIO (10-20); Calcium,Total 8.7 mg/dL (8.5-10.1); Chloride 111 mmol/L (98-107); Creatinine, Serum 1.98 mg/dL (0.55-1.02); EST Glomerular Filtration Rate 26 mL/min (>60); Est Glom Filt Rate - Afr Amer 31 mL/min (>60); Glucose 128 mg/dL (74-106); Sodium Level 141 mmol/L (136-145)
[2019-12-07 12:15] LABS: Creat.Clear Total Volume 550 mL; Creatinine Clearance 22 ml/min (100-200); EST Glomerular Filtration Rate 26 mL/min (>60); Est Glom Filt Rate - Afr Amer 31 mL/min (>60)
== END ==
PROVIDERS: PCP Internal Medicine; Referring Provider Internal Medicine Nephrology; Visit Provider Internal Medicine Nephrology
DX: N18.5 Chronic kidney disease, stage 5 (principal)
CPT/HCPCS: 36415; 80048; 81050; 82575; 84156

== ENCOUNTER 2019-12-18 11:45 | Outpatient (RCR) | payer MEDICARE, MEDICAID, OTHER, SELFPAY ==
[2019-12-04 13:20] LABS: Prothrombin Time Fingerstick 37.4 SEC (11.9-14.4)
[2019-12-18 12:06] LABS: Prothrombin Time Fingerstick 30.5 SEC (11.9-14.4)
== END 2019-12-18 18:00 | disposition home or self-care (01) ==
LOC: LAB 11:45
PROVIDERS: Family Provider Internal Medicine; PCP Internal Medicine; Referring Provider Internal Medicine; Visit Provider Internal Medicine
DX: I82.90 Acute embolism and thrombosis of unspecified vein (principal); Z79.01 Long term (current) use of anticoagulants
CPT/HCPCS: 36416; 85610

== ENCOUNTER 2020-01-09 13:08 | Outpatient (RCR) | payer MEDICARE, OTHER, SELFPAY ==
[2019-12-13 14:18] VITALS: BMI 14.9
[2020-01-09 13:57] LABS: International Normalized Ratio 2.1; Prothrombin Time (Protime)PT. 23.2 SECONDS (11.7-14.9)
[2020-01-09 14:18] LABS: Anion Gap 5 (5-15); BUN 40 mg/dL (7-18); BUN/Creat Ratio 22.9 RATIO (10-20); Calcium,Total 8.6 mg/dL (8.5-10.1); Chloride 109 mmol/L (98-107); Creatinine, Serum 1.75 mg/dL (0.55-1.02); EST Glomerular Filtration Rate 30 mL/min (>60); Est Glom Filt Rate - Afr Amer 36 mL/min (>60); Glucose 123 mg/dL (74-106); Potassium 5.2 mmol/L (3.5-5.1); Sodium Level 140 mmol/L (136-145)
== END 2020-01-09 18:00 | disposition home or self-care (01) ==
LOC: LAB 13:08
PROVIDERS: Family Provider Internal Medicine; PCP Internal Medicine; Referring Provider Internal Medicine; Visit Provider Internal Medicine
DX: I82.90 Acute embolism and thrombosis of unspecified vein (principal); Z79.01 Long term (current) use of anticoagulants
CPT/HCPCS: 36415; 80048; 85610

== ENCOUNTER 2020-02-11 13:07 | Outpatient (RCR) | payer MEDICARE, MEDICAID, OTHER, SELFPAY ==
[2019-12-13 14:18] VITALS: BMI 14.9
[2020-01-25 12:50] LABS: Prothrombin Time Fingerstick 19.6 SEC (11.9-14.4)
[2020-02-11 13:16] LABS: Prothrombin Time Fingerstick 30.5 SEC (11.9-14.4)
== END 2020-02-21 18:00 | disposition home or self-care (01) ==
LOC: LAB 13:07
PROVIDERS: Family Provider Internal Medicine; PCP Internal Medicine; Referring Provider Internal Medicine; Visit Provider Internal Medicine
DX: I82.90 Acute embolism and thrombosis of unspecified vein (principal); Z79.01 Long term (current) use of anticoagulants
CPT/HCPCS: 36416; 85610

== ENCOUNTER 2020-03-29 10:41 | Outpatient (RCR) | payer MEDICARE, OTHER, MEDICAID, SELFPAY ==
[2019-12-13 14:18] VITALS: BMI 14.9
[2020-03-03 14:39] LABS: International Normalized Ratio 1.9; Prothrombin Time (Protime)PT. 21.3 SECONDS (11.7-14.9)
[2020-03-03 15:10] LABS: Anion Gap 6 (5-15); BUN 42 mg/dL (7-18); BUN/Creat Ratio 24.7 RATIO (10-20); Calcium,Total 8.7 mg/dL (8.5-10.1); Chloride 109 mmol/L (98-107); EST Glomerular Filtration Rate 31 mL/min (>60); Est Glom Filt Rate - Afr Amer 37 mL/min (>60); Glucose 101 mg/dL (74-106); Potassium 4.1 mmol/L (3.5-5.1); Sodium Level 140 mmol/L (136-145)
[2020-03-29 11:34] LABS: Absolute Lymphocyte Count 1.57 X10^3/uL (0.83-4.51); Absolute Neutrophil Count 9.3 X10^3/uL (2.0-7.7); Basophil# 0.04 X10^3/uL; Basophil% 0.3 % (0-1); Eosinophil# 0.27 X10^3/uL; Eosinophils% 2.2 % (0-5); Hematocrit 38.8 % (37-47); Hemoglobin 12.1 g/dL (12.0-15.0); Lymphocyte # 1.57 X10^3/ul (4.0); Mean Corp Hgb Conc 31.2 g/dL (32-36); Mean Corpuscular Hgb 30.4 pg (27.0-32.0); Mean Corpuscular Volume 97.5 fL (81-99); Mean Platelet Vol. 10.9 fl (6.2-12.0); Monocyte# 0.91 X10^3/uL; Monocyte% 7.5 % (0-10); NRBC Flagged by Analyzer 0 % (0-5); Neutrophil # 9.25 X10^3/uL (2.7-7.7); Neutrophil % 76.8 % (47-70); Platelet Count 120 K/mm3 (150-450); RBC Distribution Width CV 12.1 % (11.6-14.6); RBC Distribution Width SD 43.6 fl (35.1-43.9); Red Blood Count 3.98 M/mm3 (4.2-5.4); White Blood Count 12.1 K/mm3 (4.4-11.0)
[2020-03-29 11:37] LABS: International Normalized Ratio 2.2; Prothrombin Time (Protime)PT. 24.1 SECONDS (11.7-14.9)
[2020-03-29 11:38] LABS: Anion Gap 6 (5-15); BUN 55 mg/dL (7-18); BUN/Creat Ratio 26.6 RATIO (10-20); Calcium,Total 8.6 mg/dL (8.5-10.1); Chloride 109 mmol/L (98-107); Creatinine, Serum 2.07 mg/dL (0.55-1.02); EST Glomerular Filtration Rate 25 mL/min (>60); Est Glom Filt Rate - Afr Amer 30 mL/min (>60); Glucose 174 mg/dL (74-106); Sodium Level 140 mmol/L (136-145)
[2020-03-31 09:11] LABS: PTHIN 128.3 pg/mL (18.4-80.1)
[2020-03-31 09:39] LABS: Vitamin D,25 Hydroxy 30.5 ng/mL
== END 2020-03-29 18:00 | disposition home or self-care (01) ==
LOC: LAB 10:41
PROVIDERS: Family Provider Internal Medicine; PCP Internal Medicine; Referring Provider Internal Medicine; Visit Provider Internal Medicine
DX: I82.90 Acute embolism and thrombosis of unspecified vein (principal); N18.5 Chronic kidney disease, stage 5; Z79.01 Long term (current) use of anticoagulants
CPT/HCPCS: 36415; 80048; 82306; 83970; 85025; 85610; 85730

== ENCOUNTER → 2020-03-31 | Outpatient (CLI) | payer MEDICARE, OTHER, MEDICAID, SELFPAY ==
[2019-12-13 14:18] VITALS: BMI 14.9
[2020-03-31 12:55] LABS: Protein:Creat Ratio 450 mg/g CRE (0-200)
== END | disposition home or self-care (01) ==
LOC: LABSPEC 11:55
PROVIDERS: PCP Internal Medicine; Referring Provider Internal Medicine Nephrology; Visit Provider Internal Medicine Nephrology
DX: Z01.812 Encounter for preprocedural laboratory examination (principal); N18.5 Chronic kidney disease, stage 5; E55.9 Vitamin D deficiency, unspecified; N17.9 Acute kidney failure, unspecified
CPT/HCPCS: 82570; 84156

== ENCOUNTER → 2020-04-04 12:41 | Outpatient (CLI) | payer MEDICARE, OTHER, MEDICAID, SELFPAY ==
[2019-12-13 14:18] VITALS: BMI 14.9
--- NOTE | 2020-04-04 13:00 | RAD_ITS ---
STUDY: X-RAY CHEST REASON FOR EXAM: Female, 79 years old. Pre-procedural for dialysis, patient has Hx COPD, smoker TECHNIQUE: Frontal and lateral views of the chest. COMPARISON: 09/29/2019. FINDINGS: Severe hyperexpansion of the lungs consistent with severe bullous COPD which is stable. No definite infiltrates or effusions. Stable passes catheter terminating in the lower SVC. Normal size heart. Normal mediastinum and aniya. Normal visualized pulmonary arteries. There is atherosclerotic calcification of the aortic arch with tortuosity. Normal visualized thoracic spine. Normal visualized ribs, clavicles, and shoulders. There is no demonstrated abnormality of the visualized soft tissue structures of the upper abdomen. RAD/Chest PA and Lateral IMPRESSION: Stable severe COPD without evidence of acute chest disease. Electronically Signed: Kendall Canada MD at 21:50 EDT , Service support ,
[2020-04-04 14:23] LABS: Hepatitis B Surface Antibody Reactive; Hepatitis B Surface Antigen Non-Reactive (Nonreactive)
[2020-04-05 11:11] LABS: Hepatitis B Core Ab Total Negative (Negative)
== END ==
PROVIDERS: PCP Internal Medicine; Referring Provider Internal Medicine Nephrology; Visit Provider Internal Medicine Nephrology
DX: Z01.818 Encounter for other preprocedural examination (principal); N18.6 End stage renal disease
CPT/HCPCS: 36415; 71046; 86704; 86706; 87340

== ENCOUNTER 2020-04-09 21:59 | Inpatient (IN) | payer MEDICARE, OTHER, MEDICAID, SELFPAY ==
[2019-12-13 14:18] VITALS: BMI 14.9
[2020-04-09 22:02] VITALS: BP 157/74; PULSE 115; PULSE 88; RESP 16; RESP 19; TEMP 37.8; O2SAT 95; BMI 16.3
--- NOTE | 2020-04-09 22:11 | ED.RN ---
CALLED FOR EKG PER RN REQUEST, PULLED OLD EKGS FOR
--- NOTE | 2020-04-09 22:27 | RAD_ITS ---
STUDY: X-RAY CHEST REASON FOR EXAM: Female, 79 years old. Cough, fever, chest pain between shoulder blades. TECHNIQUE: Single AP portable view of the chest. COMPARISON: 04/04/2020. FINDINGS: No significant change. Stable dialysis catheter through the right IJ and terminating near the cavoatrial junction. Again seen is severe hyperexpansion and COPD. No infiltrates. No effusions. No other changes. RAD/Chest 1 View (Portable) IMPRESSION: Stable severe COPD. No acute chest disease. Electronically Signed: Kendall Canada MD at 23:07 EDT , Service support ,
--- NOTE | 2020-04-09 22:28 | EKG12_ITS ---
Test Reason : CP Blood Pressure : / mmHG Vent. Rate : 115 BPM Atrial Rate : 115 BPM P-R Int : 190 ms QRS Dur : 084 ms QT Int : 366 ms P-R-T Axes : 000 084 095 degrees QTc Int : 506 ms Sinus tachycardia with Premature supraventricular complexes Left ventricular hypertrophy Nonspecific ST and T wave abnormality Abnormal ECG Confirmed by ANURADHA GARAY, MARC ([id number]), sound editor MAROLN BIANCHI ([id number]) on 04/11/2020 11:15:37 AM Referred By: PENG/TONIA Confirmed By:MARC LING MD
[2020-04-09 22:38] LABS: Absolute Lymphocyte Count 0.69 X10^3/uL (0.83-4.51); Absolute Neutrophil Count 11.6 X10^3/uL (2.0-7.7); Basophil# 0.02 X10^3/uL; Basophil% 0.2 % (0-1); Eosinophil# 0.11 X10^3/uL; Eosinophils% 0.8 % (0-5); Hemoglobin 11.5 g/dL (12.0-15.0); Lymphocyte # 0.69 X10^3/ul (4.0); Lymphocyte % 5.2 % (19-41); Mean Corp Hgb Conc 31.9 g/dL (32-36); Mean Corpuscular Hgb 30.5 pg (27.0-32.0); Mean Corpuscular Volume 95.5 fL (81-99); Mean Platelet Vol. 10.2 fl (6.2-12.0); Monocyte# 0.75 X10^3/uL; Monocyte% 5.7 % (0-10); NRBC Flagged by Analyzer 0 % (0-5); Neutrophil # 11.56 X10^3/uL (2.7-7.7); Neutrophil % 87.8 % (47-70); Platelet Count 168 K/mm3 (150-450); RBC Distribution Width SD 41.4 fl (35.1-43.9); Red Blood Count 3.77 M/mm3 (4.2-5.4); White Blood Count 13.2 K/mm3 (4.4-11.0)
[2020-04-09 22:42] LABS: International Normalized Ratio 1.8; Prothrombin Time (Protime)PT. 20.4 SECONDS (11.7-14.9)
[2020-04-09 22:54] LABS: AST(SGOT) 13 U/L (15-37); Alanine Aminotransfer ALT/SGPT 20 U/L (13-56); Albumin, Serum 3.2 g/dL (3.2-5.0); Alkaline Phosphatase 78 U/L (45-117); Anion Gap 8 (5-15); BUN 29 mg/dL (7-18); BUN/Creat Ratio 11.6 RATIO (10-20); Chloride 99 mmol/L (98-107); EST Glomerular Filtration Rate 20 mL/min (>60); Est Glom Filt Rate - Afr Amer 24 mL/min (>60); Estimated Creatinine Clearance 13.44 ml/min; Globulin 3.2 g/dL (2.2-4.2); Glucose 272 mg/dL (74-106); Potassium 4.2 mmol/L (3.5-5.1); Protein, Total 6.4 g/dL (6.4-8.2); Sodium Level 135 mmol/L (136-145)
--- NOTE | 2020-04-09 22:56 | ED.VISSUMM ---
- ER Visit Summary Date of Service: 04/09/20 Chief Complaint: Cough, fever, generalized weakness History of Present Illness: The patient is a 79 F presenting with cough, fever, generalized weakness. She states the symptoms started yesterday after she had dialysis. She states this was her first dialysis in the past 4 months. She states her blood pressure was low following dialysis and she was not feeling well. She developed generalized weakness, fever, cough. She has had a cough productive of sputum. She has shortness of breath and chest pain. She has pain between her shoulder blades. She has diffuse myalgias and headache. She took Tylenol this afternoon. She has no known exposure to COVID. Physical Examination: Vitals are stable. Temperature 100.1. Alert no acute distress. HEENT exam dry mucous membranes. Neck is supple. No meningismus Lungs are clear and equal bilaterally. Right upper chest dialysis catheter with no surrounding erythema. Heart is regular and tachycardic Abdomen is soft nontender nondistended. No guarding or rebound Extremities are unremarkable. Skin is warm and dry. No focal neurologic deficit. Remainder of exam is unremarkable. Emergency Department Course and Treatment: EKG is sinus rate of 115 with LVH. CBC shows white count 13.2, hemoglobin 11.5. Chemistries show sodium 135, glucose 272, BUN 29, creatinine 2.5. INR 1.8. Troponin 0.017. Blood cultures were sent. Chest x-ray shows stable severe COPD. No acute chest disease. Lactic acid 2.4. COVID is pending. Due to severe sepsis without a source and penicillin allergy, she was given meropenem and vancomycin. Discussed with hospitalist for admission. Disposition: Admission Impression: Severe sepsis This note was generated with [employer] dictation software. It may contain incorrect words, spelling, and punctuation that were not noted in review of the chart prior to signing ED Disposition - Plan for ED Patient: Referrals: Yudith Rosales DO [Primary Care Provider] -
[2020-04-09 23:13] LABS: Lactic Acid 2.4 mmol/L (0.4-1.9)
[2020-04-09 23:36] VITALS: BP 156/71; PULSE 111; RESP 19; TEMP 37.7; O2SAT 94
[2020-04-09 23:43] VITALS: O2SAT 100
--- NOTE | 2020-04-09 23:56 | PCM.HP.STD ---
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 (11) Benign essential HTN Status: Chronic (12) COLD (chronic obstructive lung disease) Status: Chronic Qualifiers: COPD type: unspecified COPD Qualified Code(s): J44.9 - Chronic obstructive pulmonary disease, unspecified (13) FCHL (familial combined hyperlipidemia) Status: Chronic (14) Gastroesophageal reflux disease Status: Chronic (15) History of DVT (deep vein thrombosis) Status: Chronic (16) Tobacco abuse Status: Chronic History of Present Illness Date of Admission: 04/09/20 Chief Complaint: Fever The patient is a 79 year old F with a significant history of end-stage renal disease; hypertension; diabetes mellitus; and COPD who presented to the emergency department with a fever. Her temperature at home was more than 100 Fahrenheit. Further, patient has pain between her scapula. Also she reports a cold in her chest; and a productive cough of drake abel sputum. She completed a course of steroids recently and is on azithromycin 3 times in a week. She denies any sore throats. Importantly she resumed dialysis a day before presentation. She reported that at dialysis her blood pressure was in the 60s. Past Medical History Past Medical History (Chronic Problems): Chronic Problems (Last Reviewed 04/10/20 @ 01:[address] 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) Benign essential HTN (Chronic) COLD (chronic obstructive lung disease) (Chronic) FCHL (familial combined hyperlipidemia) (Chronic) Gastroesophageal reflux disease (Chronic) History of DVT (deep vein thrombosis) (Chronic) Tobacco abuse (Chronic) Medical History: Medical History (Last Reviewed 04/10/20 @ 05:[address] Reilly Lopez MD) Celiac disease (Chronic) K90.0 Cellulitis of face (Inactive) L03.211 Multiple excoriations (Inactive) T07.XXXA Family history of lung cancer (Chronic) Z80.1 Solitary pulmonary nodule (Chronic) R91.1 Acute exacerbation of chronic obstructive pulmonary disease (COPD) (Inactive) J44.1 Diabetes mellitus (Chronic) E11.9 Stage 1 mild COPD by GOLD classification (Chronic) J44.9 Acute maxillary sinusitis (Inactive) J01.00 Neoplasm of uncertain behavior of skin (Chronic) D48.5 Benign essential HTN (Chronic) I10 COLD (chronic obstructive lung disease) (Chronic) J44.9 FCHL (familial combined hyperlipidemia) (Chronic) E78.4 Gastroesophageal reflux disease (Chronic) K21.9 History of DVT (deep vein thrombosis) (Chronic) Z86.718 Tobacco abuse (Chronic) Z72.0 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 C44.621 Allergies diltiazem HCl [From Cardizem] Allergy (Verified 03/10/20 14:03) Angioedema fluticasone furoate [From Breo Ellipta] Allergy (Verified 04/09/20 22:01) PT UNSURE OF REACTION gatifloxacin [From Tequin] Allergy (Verified 03/10/20 14:03) Unknown hydrochlorothiazide [From Maxzide] Allergy (Verified 03/10/20 14:03) Other Penicillins [PCN] Allergy (Verified 03/10/20 14:03) Hives triamterene [From Maxzide] Allergy (Verified 03/10/20 14:03) Other vilanterol [From Breo Ellipta] Allergy (Verified 04/09/20 22:01) PT UNSURE OF REACTION codeine Adverse Reaction (Verified 03/10/20 14:03) Upset Stomach Home Medications: Ambulatory Orders Medication Instructions Recorded Albuterol IH (ProAir) [Proair Hfa 2 puff INHALATION Q4H PRN PRN 12/30/14 (SP)Vent Pts] Omeprazole [Prilosec] 20 mg PO DAILY 12/30/14 amlodipine 5 mg tablet 10 mg PO DAILY 08/28/18 atenolol 25 mg tablet 12.5 mg PO DAILY 08/28/18 Simvastatin 20 mg PO DAILY 12/24/18 Tiotropium [place] [Spiriva 2 puff INHALATION DAILY 01/17/19 Respimat] Warfarin Sodium [Coumadin] 5 mg PO SUMOWEFR01/17/19 mometasone-formoterol HFA 200 2 puff INHALATION BID #3 device 04/30/19 mcg-5 mcg/actuation aerosol inhaler colesevelam 625 mg tablet 1,875 mg PO BID 12/13/19 guaifenesin 1,200 mg tablet, 1,200 mg PO BID 03/10/20 extended release 12 hr Azithromycin 250 mg PO MOWEFR 04/09/20 Glimepiride 0.5 mg PO DAILY 04/09/20 Warfarin [Coumadin (PBKC)] 2.5 mg PO TUTH 04/09/20 Surgical History: Surgical History (Last Reviewed 04/10/20 @ 05:[address] Reilly Lopez MD) History of skin graft (Chronic) Z98.890 History of hysterectomy (Chronic) Z98.890, Z90.710 History of appendectomy (Chronic) Z98.890, Z90.49 Surgical History: noncontributory, hysterectomy Smoking Status: Current every day smoker - *Family History Maternal Family History: Family History (Last Reviewed 04/10/20 @ 05:[address] Reilly Lopez MD) Father Diabetes Lung cancer Mother Heart disease Hypertension Review of Systems Constitutional: Reports: Chills, Fever. Denies: Weight Change HEENT: Reports: Head Aches. Denies: Sinus Congestion, Sinus Drainage Cardiovascular: Reports: Chest Pain. Denies: Palpitations Respiratory: Reports: Cough, Shortness of Breath, Sputum production, Wheezing Gastrointestinal: Denies: Abdominal Pain, Nausea, Vomiting Genitourinary: Denies: Dysuria Musculoskeletal: Denies: Joint Pain, Joint Tenderness Skin: Denies: Rash, Wounds Neurological: Denies: Numbness, Tingling, Focal weakness Psychiatric: Denies: Anxiety, Depression, Homicidal Ideations, Suicidal Ideations Hematologic/ Lymphatic: Denies: Easy Bruising, Easy Bleeding VTE Information - Inpt Only VTE Present on Admission: No VTE Mechan Device Prophylaxis: None VTE Pharm Prophylaxis ordered?: No Reason prophylaxis not ordered:: Treatment Not Indicated - Coumadin continued for history of DVT x2. Patient Problems: Active and Suspected Problems (Last Reviewed 04/10/20 @ 01:[address] Reilly Lopez MD) Acute febrile illness (Acute) - Physical Exam Vitals/I&O's: Vital Signs Temp Pulse Resp BP Pulse Ox 99.8 F H 111 H 19 H 156/71 H 100 04/09/20 23:36 04/09/20 23:36 04/09/20 23:36 04/09/20 23:36 04/09/20 23:43 Oxygen Flow Rate (L/min) 2 Oxygen Delivery Method Nasal Cannula Weight: 45.9 kg Body Mass Index (BMI) 16.3 Finger Stick Blood Glucose 149 General: Alert, Oriented x3, Cooperative HEENT: Atraumatic, PERRLA, EOMI, Normocephalic Neck: Supple, No JVD, Negative Carotid Bruits Lungs: No rhonchi, No wheeze, No rales, Diminished, Tachypneic Cardiovascular: Regular Rhythm, Normal S1, Normal S2, No murmurs, Tachycardic Abdomen: Bowel Sounds Present, Soft, Non Tender Extremities: No edema, Capillary Refill Less than 3 Seconds Skin: No rashes, No breakdown Musculoskeletal: No Tenderness to Palpation of Joints or Extremities Neurological: Cranial nerves II-XII grossly intact Psych/Mental Status: Normal Affect, Appropriate Laboratory Results 04/09/20 22:12: WBC 13.2 H, RBC 3.77 L, Hgb 11.5 L, Hct 36.0 L, MCV 95.5, MCH 30.5, MCHC 31.9 L, RDW Std Deviation 41.4, RDW Coeff of Oly 12.0, Plt Count 168, MPV 10.2, Immature Gran % (Auto) 0.300, Neut % (Auto) 87.8 H, Lymph % (Auto) 5.2 L, [place] % (Auto) 5.7, Eos % (Auto) 0.8, Baso % (Auto) 0.2, Absolute Neuts (auto) 11.6 H, Absolute Lymphs (auto) 0.69 L, Nucleated RBC % 0 04/09/20 22:12: PT 20.4 H, INR 1.8 04/09/20 22:12: Sodium 135 L, Potassium 4.2, Chloride 99, Carbon Dioxide 28.0, Anion Gap 8, BUN 29 H, Creatinine 2.50 H, Estim Creat Clear Calc 13.44, Est GFR (MDRD) Af Amer 24 L, Est GFR (MDRD) Non-Af 20 L, BUN/Creatinine Ratio 11.6, Glucose 272 H, Calcium 8.0 L, Total Bilirubin 0.30, AST 13 L, ALT 20, Alkaline Phosphatase 78, Troponin I 0.017, Total Protein 6.4, Albumin 3.2, Globulin 3.2, Albumin/Globulin Ratio 1.0 04/09/20 22:12: Lactic Acid 2.4 H* 04/09/20 22:37: COVID-19 (JANELL) Pending Current Medications Vancomycin HCl 1,250 mg/ (Dextrose) 275 mls @ 250 mls/hr IV X1 ONE Stop: 04/10/20 00:57 Meropenem 1 gm/ Sodium (Chloride) 120 mls @ 200 mls/hr IV X1 ONE Stop: 04/10/20 00:27 Sodium Chloride () 1,000 mls @ 150 mls/hr IV .Q6H40M [facility] Assessment/Plan All Active Problems (Last Reviewed 04/10/20 @ 01:[address] Reilly Lopez MD) Acute febrile illness (Acute) The patient is a 79 year old F with a significant history of end-stage renal disease; hypertension; diabetes mellitus; and COPD who presented to the emergency department with a fever; productive cough; increased sob; pain between her scapula and found to have tachycardia; tachypnea; leukocytosis; and lactic acidosis. Acute febrile illness. Etiology unclear. Received vancomycin and Merrem at emergency department. Of note patient has allergic to penicillin. We will continue patient on vancomycin and Merrem. Patient is on home azithromycin 3 times a week; will continue. Covid at emergency department was negative. Will get acute respiratory pathogen panel. Get ESR, CRP, triglyceride and ferritin level. Follow blood cultures obtained in the emergency department. Trend lactic acid. Mucinex ordered. Placed on scheduled DuoNeb and PRN albuterol. Home inhalers continued. SIRS Management as an acute febrile illness. DVT. Patient has a history of DVT. On Coumadin. INR subtherapeutic. Will give x1 dose of extra Coumadin. We will trend INR. MD to dose Coumadin based upon INR. DVT Prophylaxis Not indicated since patient is on Coumadin for history of DVT. Inpatient E&M: 21378 Init Hosp L3
[2020-04-10] VITALS (20 sets, daily range): BP systolic 116–164; BP diastolic 45–75; PULSE 75–117; RESP 18–23; TEMP 36.7–37.7; O2SAT 2–98; BMI 15.5
[2020-04-10] MEDS: 0.9% Normal Saline 1,000 ML 150 ML IV (00:31)
--- NOTE | 2020-04-10 00:42 | ED.RN ---
attempted to use BSC for urine sample but unable to void. pt became very SOB.
[2020-04-10 00:58] LABS: Probe Check PASS; Specimen Processing Control PASS
[2020-04-10] MEDS: Acetaminophen 325 MG Tablet 650 MG PO ×3 (01:49→21:03)
[2020-04-10] MEDS: Ipratropium/Albuterol Sulfate 3 ML AMPUL.NEB INHALATION ×3 (01:49→19:12)
[2020-04-10 01:50] LABS: Erythrocyte Sedimentation Rate 17 mm/hr (0-30)
[2020-04-10 04:21] LABS: Reflex Lactate? Y
[2020-04-10 04:46] LABS: Triglycerides 103 mg/dL
[2020-04-10 04:47] LABS: CRP 7.84 mg/L (0.0-3.0); Ferritin 738 ng/mL (8-252)
[2020-04-10 04:50] LABS: Absolute Lymphocyte Count 0.79 X10^3/uL (0.83-4.51); Absolute Neutrophil Count 10.2 X10^3/uL (2.0-7.7); Basophil# 0.02 X10^3/uL; Basophil% 0.2 % (0-1); Eosinophil# 0.09 X10^3/uL; Eosinophils% 0.8 % (0-5); Hematocrit 31.3 % (37-47); Hemoglobin 10.1 g/dL (12.0-15.0); Lymphocyte # 0.79 X10^3/ul (4.0); Lymphocyte % 6.6 % (19-41); Mean Corp Hgb Conc 32.3 g/dL (32-36); Mean Corpuscular Hgb 30.4 pg (27.0-32.0); Mean Corpuscular Volume 94.3 fL (81-99); Mean Platelet Vol. 10.2 fl (6.2-12.0); Monocyte# 0.78 X10^3/uL; Monocyte% 6.5 % (0-10); NRBC Flagged by Analyzer 0 % (0-5); Neutrophil # 10.24 X10^3/uL (2.7-7.7); Neutrophil % 85.3 % (47-70); Platelet Count 127 K/mm3 (150-450); RBC Distribution Width SD 41.3 fl (35.1-43.9); Red Blood Count 3.32 M/mm3 (4.2-5.4)
[2020-04-10 05:06] LABS: International Normalized Ratio 2.1
[2020-04-10 05:07] LABS: Anion Gap 8 (5-15); BUN 27 mg/dL (7-18); BUN/Creat Ratio 14.4 RATIO (10-20); Calcium,Total 7.5 mg/dL (8.5-10.1); Chloride 102 mmol/L (98-107); Creatinine, Serum 1.88 mg/dL (0.55-1.02); EST Glomerular Filtration Rate 28 mL/min (>60); Est Glom Filt Rate - Afr Amer 33 mL/min (>60); Estimated Creatinine Clearance 16.94 ml/min; Glucose 163 mg/dL (74-106); Sodium Level 138 mmol/L (136-145)
[2020-04-10] MEDS: oxyCODONE 5 MG Tablet PO ×3 (05:35→19:29)
[2020-04-10] MEDS: 0.9% Saline Lock 10 ML Syringe IV (05:37)
[2020-04-10] MEDS: Budesonide Respules 0.5 MG/2 ML AMPUL.NEB. INHALATION ×2 (06:49→19:12)
--- NOTE | 2020-04-10 06:52 | PCM.PN.HOSP ---
Patient Problems: Active and Suspected Problems (Last Reviewed 04/10/20 @ 05:[address] Reilly Lopez MD) Acute febrile illness (Acute) Subjective: Patient with no acute events overnight per self and per nursing report. She states she still does have a mild cough productive of minimal sputum but feeling better since initial ED presentation. She states she has had a frontal headache that was the day prior but this is since resolved. She denies any recent nausea, emesis, abdominal pain, abdominal cramping, diarrhea or any alteration in sense of taste or smell. Discussed that nephrology would follow-up on patient and possibly initiate dialysis on Tuesday with concerns as well for dialysis access as source of possible infection as it has been in place for a long time per discussions with nephrology. Requesting culture via this catheter. Patient denies fevers, chills, nausea, emesis, abdominal pain, chest pain or dyspnea. Objective: Physical Examination: General: awake, alert, oriented x 3 and cooperative, seated upright, laying in the ICU bed in no apparent distress. Skin: normal color, turgor, no icterus, cyanosis. HEENT: AT/NC, EOMI, PERRLA, moderately dry MM. Lungs: Diminished BS, > bases, moderate decrease BL bases, no rales, ronchi or wheezing. Heart: Regular rate and rhythm; no gallop, rub audible. Abdomen: soft, cachetic habitus, NTTP, ND, normal BS. Extremities: no cyanosis, clubbing, or edema. Neurological: patient awake, alert, oriented x 3; cognitive function appears baseline intact; pupils equally reactive to light and accomodation; cranial nerves II-XII grossly normal, moving all 4 extremities, no focal deficits, strength moderately to severely decreased secondary to acute presentation. Psychiatric: affect appears fatigued, although notes improved since initial ED presentation, no acute evidence of depressive or anxiety feelings. Vitals/I&O's: Vital Signs Temp Pulse Resp BP Pulse Ox 98.8 F 107 H 19 H 126/63 H 97 04/10/20 05:37 04/10/20 05:37 04/10/20 05:37 04/10/20 05:37 04/10/20 05:37 Oxygen Flow Rate (L/min) 2 Oxygen Delivery Method Nasal Cannula Weight: 95 lb 14.417 oz Body Mass Index (BMI) 15.5 Finger Stick Blood Glucose 149 Intake and Output for Last 24 Hours 04/08/20 04/09/20 04/10/20 23:59 23:59 23:59 Intake Total 805 / 805 Output Total 0 / 0 Balance 805 / 805 Microbiology Past 72 Hours 04/10/20 01:45 Mucosa - Nasopharyngeal Respiratory Panel (PCR) - Final Laboratory Results 04/09/20 22:12: WBC 13.2 H, RBC 3.77 L, Hgb 11.5 L, Hct 36.0 L, MCV 95.5, MCH 30.5, MCHC 31.9 L, RDW Std Deviation 41.4, RDW Coeff of Oly 12.0, Plt Count 168, MPV 10.2, Immature Gran % (Auto) 0.300, Neut % (Auto) 87.8 H, Lymph % (Auto) 5.2 L, [place] % (Auto) 5.7, Eos % (Auto) 0.8, Baso % (Auto) 0.2, Absolute Neuts (auto) 11.6 H, Absolute Lymphs (auto) 0.69 L, Nucleated RBC % 0 04/09/20 22:12: PT 20.4 H, INR 1.8 04/09/20 22:12: Sodium 135 L, Potassium 4.2, Chloride 99, Carbon Dioxide 28.0, Anion Gap 8, BUN 29 H, Creatinine 2.50 H, Estim Creat Clear Calc 13.44, Est GFR (MDRD) Af Amer 24 L, Est GFR (MDRD) Non-Af 20 L, BUN/Creatinine Ratio 11.6, Glucose 272 H, Calcium 8.0 L, Total Bilirubin 0.30, AST 13 L, ALT 20, Alkaline Phosphatase 78, Troponin I 0.017, Total Protein 6.4, Albumin 3.2, Globulin 3.2, Albumin/Globulin Ratio 1.0 04/09/20 22:12: Lactic Acid 2.4 H* 04/09/20 22:12: ESR 17 04/09/20 22:12: Ferritin 738 H, C-React Prot Ext Range 7.84 H, Triglycerides 103 04/09/20 22:37: COVID-19 (JANELL) Not Detected 04/10/20 04:20: WBC 12.0 H, RBC 3.32 L, Hgb 10.1 L, Hct 31.3 L, MCV 94.3, MCH 30.4, MCHC 32.3, RDW Std Deviation 41.3, RDW Coeff of Oly 12.0, Plt Count 127 L, MPV 10.2, Immature Gran % (Auto) 0.600, Neut % (Auto) 85.3 H, Lymph % (Auto) 6.6 L, [place] % (Auto) 6.5, Eos % (Auto) 0.8, Baso % (Auto) 0.2, Absolute Neuts (auto) 10.2 H, Absolute Lymphs (auto) 0.79 L, Nucleated RBC % 0 04/10/20 04:20: PT 23.0 H, INR 2.1 04/10/20 04:20: Sodium 138, Potassium 4.0, Chloride 102, Carbon Dioxide 28.0, Anion Gap 8, BUN 27 H, Creatinine 1.88 H, Estim Creat Clear Calc 16.94, Est GFR (MDRD) Af Amer 33 L, Est GFR (MDRD) Non-Af 28 L, BUN/Creatinine Ratio 14.4, Glucose 163 H, Calcium 7.5 L 04/10/20 04:20: Lactic Acid 1.0 Current Medications Acetaminophen (Tylenol) 650 mg PO Q8H PRN PRN PRN Reason: Pain Score 1-10/Temp > 100.7 F Last Admin: 04/10/20 01:49 Dose: 650 mg Documented by: Albuterol Sulfate (Ventolin Aerosols) 2.5 mg INHALATION Q2H PRN PRN PRN Reason: SOB/Wheezing Albuterol/Ipratropium (Duoneb) 3 ml INHALATION Q6H.RT [facility] Last Admin: 04/10/20 06:49 Dose: 3 ml Documented by: Amlodipine Besylate (Norvasc) 10 mg PO DAILY [facility] Atenolol (Tenormin (Beta Kera)) 12.5 mg PO DAILY [facility] Atorvastatin Calcium (Lipitor) 10 mg PO QHS [facility] Azithromycin (Zithromax) 250 mg PO MoWeFr@1000 [facility] Budesonide (Pulmicort Aerosol) 0.5 mg INHALATION Q12H.RT [facility] Last Admin: 04/10/20 06:49 Dose: 0.5 mg Documented by: Colesevelam HCl (Welchol) 1,875 mg PO BID [facility] Dextrose (D50w Syringe) 0 gm IV X1 PRN; Protocol PRN Reason: Hypoglycemia Glimepiride (Amaryl) 0.5 mg PO DAILYCM [facility] Glucagon () 1 mg IM .X1 PRN PRN Reason: Hypoglycemia Guaifenesin (Mucinex) 1,200 mg PO BID [facility] Vancomycin IV Pharmacy to Dose (1 ea/ Sodium Chloride) 500 mls @ 250 mls/hr IV X1 PRN; Protocol PRN Reason: Rx to Dose Meropenem 500 mg/ Sodium (Chloride) 60 mls @ 100 mls/hr IV Q12 [facility] Sodium Chloride () 250 mls @ 15 mls/hr IV .[id number] PRN PRN Reason: Saline Flush Sodium Chloride () 250 mls @ 15 mls/hr IV .[id number] PRN PRN Reason: Additional IVPB Infusion Melatonin (Melatonin) 3 mg PO QHS PRN PRN PRN Reason: INSOMNIA Ondansetron HCl (Zofran) 4 mg IV Q8H PRN PRN PRN Reason: NAUSEA/VOMITING Oxycodone HCl (Oxyir) 5 mg PO Q6H PRN PRN PRN Reason: Pain Score 6-10/10 Last Admin: 04/10/20 05:35 Dose: 5 mg Documented by: Pantoprazole Sodium (Protonix) 20 mg PO DAILY [facility] Sodium Chloride () 10 - 40 ml IV UD PRN PRN Reason: SALINE FLUSH Last Admin: 04/10/20 05:37 Dose: 20 ml Documented by: STROKE Vital Signs/Narrative: Vital Signs Temp Pulse Resp BP Pulse Ox 04/10/20 05:37 98.8 F 107 H 19 H 126/63 H 97 04/10/20 03:07 110 H Medical Necessity - Tobacco Use Smoking Status: Current every day smoker Assessment/Plan All Active Problems (Last Reviewed 04/10/20 @ 05:[address] Reilly Lopez MD) Acute febrile illness (Acute) The patient is a 79 y/o F w/ PMHx: ESRD on HD (Following w/ Dr. Hayes, recent restart HD), Severe protein calorie malnutrition, Chronic COPD, Hx Lung CA, HTN, HLD, Celiac disease, Hx DVT, GERD, Diabetes mellitus type II, Hx DVTs on coumadin who presents to the [facility] ED on 04/09/20 with history of onset fever at home T 100 with increased fatigue and mildly productive cough with no recent sore throat, nausea, emesis, abdominal pain, alteration to sense of taste or smell or diarrhea. 1. SIRS with lactic acidosis of unclear etiology: ED presentation with CBC with WBC 13.2, hemoglobin 11.5, platelet 168 with left shift with concurrent lymphopenia, initial INR 1.8, CMP with sodium 135, BUN/creatinine 29/2.50, glucose 272, lactic acid 2.4, ferritin 738, unremarkable hepatic profile, troponin 0 0.017, CRP 7.4, Coronavirus testing negative, respiratory panel unremarkable, blood culture x2 obtained in the ED but unclear if 1 was via the dialysis port, chest x-ray with no acute cardiopulmonary findings, EKG with sinus tachycardia with no acute evidence of ischemia. Patient admitted to medical surgical status in the ICU given COVID pending upon presentation, continued judicious hydration with repeat lactic 1.0, maintained on meropenem and vancomycin, continued Coumadin with repeat INR 2.0, although from discussions lower suspicion of COVID to further evaluate will obtain procalcitonin, CRP, LDH, d-dimer, cycle cardiac enzymes, will request urinalysis via straight catheterization as since last dialysis has not been making any urine, obtain blood culture via dialysis access per discussion with nephrology who is consulted and will be following. Requested sputum culture, pending sample collection. Will trend CBC, CMP and INR as noted. 2. Hypertension: Continue home regimen including amlodipine, atenolol hold parameters as needed, PRN hydralazine. 3. Hyperlipidemia: Continue home statin regimen. 4. Chronic COPD: Will maintain on oxygen with wean as tolerated to room air, continue ATC duonebs, PRN albuterol, HOB, IS parameters. 5. Diabetes mellitus type II: Hold oral home regimen, ADA diet, accu checks w/ ISS. 6. ESRD: Admission BUN/Cr 29/2.50 with repeat 04/10/20 BUN/Cr 27/1.88. 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 7. Severe protein calorie malnutrition: Evidenced per habitus, reduced BMI of 15, obvious muscle and fat loss, nutrition consulted for recommendations. 8. Hx DVTs: We will continue Coumadin which is now therapeutic but was subtherapeutic upon presentation, duplex ultrasound bilateral lower extremity pending with ongoing evaluation #1 to assist in further diagnosis, trend INR. 9. AOCD: Hemoglobin 11.5, repeat 10.1, stable from baseline. 10. GERD: Maintain on PPI. 11. DVT Prophylaxis: SCDs, coumadin w/ INR trending. Inpatient E&M: 02394 Subs Hosp L3
[2020-04-10 07:37] LABS: LDH 170 U/L (84-246); Magnesium 1.3 mg/dL (1.6-2.6)
[2020-04-10 07:42] LABS: D-Dimer Quantitative (DVT/PE) 2.31 FEU/ug/m (0.27-0.49)
--- NOTE | 2020-04-10 07:44 | VDLE_ITS ---
Reason For Study: elevated D-Dimer RIGHT LEFT CFV, FV, POP V, T/P Trunk, PTV, Peroneal V, CFV, FV, POP V, T/P Trunk, PTV, Peroneal V, and GSV are compressible. and GSV are compressible. Procedure S[place]us V is dilated and noncompressible. Exam performed portable in ICU/CCU. The exam was abbreviated due to the COVID 19 protocol. The exam was diagnostic. A preliminary report was called and/or faxed to [facility]. Interpretation Summary No evidence for acute deep vein thrombosis right lower extremity Acute deep vein thrombosis left soleus vein Patent and compressible bilateral great saphenous vein Abbreviated Covid-19 protocol Ordering Physician: Oumou Alaniz Performed By: Ko Miranda RVT
[2020-04-10] MEDS: Magnesium Sulfate 4gm/100mL 4 GM/100 ML IV.SOLN. IV (08:58)
[2020-04-10] MEDS: amLODIPine 10 MG Tablet PO (09:09)
[2020-04-10] MEDS: guaiFENesin 1,200 MG Tablet 1200 MG PO ×2 (09:09→21:02)
[2020-04-10] MEDS: Pantoprazole Sodium 20 MG Tablet PO (09:09)
[2020-04-10] MEDS: Glimepiride 1 MG Tablet 0.5 MG PO (09:09)
[2020-04-10] MEDS: Atenolol 25 MG Tablet 12.5 MG PO (09:10)
[2020-04-10 09:32] LABS: Procalcitonin 0.29 ng/mL (0.00-0.09)
--- NOTE | 2020-04-10 12:29 | CON.PCM_ITS ---
Consultation - Renal 04/10/20 PCP/ Referring MD: Requesting physician: [] Primary care physician: Dr. Yudith Rosales, DO - History of Present Illness History of Present Illness: The patient is a 79 year old F past medical history of end-stage renal disease hypertension who presented to the emergency department with a chief complaint of fever more than 100 4 at night. She also had some pain in her back between her scapulae. She had associated cough of drake-abel sputum and she finished a recent course of steroids and azithromycin. She denied any sore throat. She had dialysis on 1 day prior to presentation.The patient had dialysis Tuesday.She goes Tuesday and Tuesday for HD.The patient has minimal UOP.The patient was restarted on HD this Tuesday.Last dialysis prior to that was in november 23.She has catheter in [facility].No erythema no discharge.No avf.no Teixeira no n/v.The patient still has some cough no cp no sob.Had no uop yesterday.Had low bp after HD no syncope. Patient is still on strict droplet isolation.history is obtained via telephone. - Allergies Allergies: Allergies gluten Allergy (Unknown, Verified 04/10/20 10:38) Food Allergy diltiazem HCl [From Cardizem] Allergy (Verified 03/10/20 14:03) Angioedema fluticasone furoate [From Breo Ellipta] Allergy (Verified 04/09/20 22:01) PT UNSURE OF REACTION gatifloxacin [From Tequin] Allergy (Verified 03/10/20 14:03) Unknown hydrochlorothiazide [From Maxzide] Allergy (Verified 03/10/20 14:03) Other Penicillins [PCN] Allergy (Verified 03/10/20 14:03) Hives triamterene [From Maxzide] Allergy (Verified 03/10/20 14:03) Other vilanterol [From Breo Ellipta] Allergy (Verified 04/09/20 22:01) PT UNSURE OF REACTION codeine Adverse Reaction (Verified 03/10/20 14:03) Upset Stomach - Current Medications Current Medications: Current Medications Acetaminophen (Tylenol) 650 mg PO Q8H PRN PRN PRN Reason: Pain Score 1-10/Temp > 100.7 F Last Admin: 04/10/20 09:08 Dose: 650 mg Documented by: Albuterol Sulfate (Ventolin Aerosols) 2.5 mg INHALATION Q2H PRN PRN PRN Reason: SOB/Wheezing Albuterol/Ipratropium (Duoneb) 3 ml INHALATION Q6H.RT [facility] Last Admin: 04/10/20 06:49 Dose: 3 ml Documented by: Amlodipine Besylate (Norvasc) 10 mg PO DAILY [facility] Last Admin: 04/10/20 09:09 Dose: 10 mg Documented by: Atenolol (Tenormin (Beta Kera)) 12.5 mg PO DAILY [facility] Last Admin: 04/10/20 09:10 Dose: 12.5 mg Documented by: Atorvastatin Calcium (Lipitor) 10 mg PO QHS BRYAN Azithromycin (Zithromax) 250 mg PO MoWeFr@1000 BRYAN Budesonide (Pulmicort Aerosol) 0.5 mg INHALATION Q12H.RT [facility] Last Admin: 04/10/20 06:49 Dose: 0.5 mg Documented by: Colesevelam HCl (Welchol) 1,875 mg PO BID [facility] Last Admin: 04/10/20 09:12 Dose: 1,875 mg Documented by: Dextrose (D50w Syringe) 0 gm IV X1 PRN; Protocol PRN Reason: Hypoglycemia Glucagon () 1 mg IM .X1 PRN PRN Reason: Hypoglycemia Guaifenesin (Mucinex) 1,200 mg PO BID [facility] Last Admin: 04/10/20 09:09 Dose: 1,200 mg Documented by: Vancomycin IV Pharmacy to Dose (1 ea/ Sodium Chloride) 500 mls @ 250 mls/hr IV X1 PRN; Protocol PRN Reason: Rx to Dose Meropenem 500 mg/ Sodium (Chloride) 60 mls @ 100 mls/hr IV Q12 BRYAN Sodium Chloride () 250 mls @ 15 mls/hr IV .[id number] PRN PRN Reason: Saline Flush Sodium Chloride () 250 mls @ 15 mls/hr IV .[id number] PRN PRN Reason: Additional IVPB Infusion Insulin Human Lispro (Humalog Kwikpen (Bkc)) 0 unit SC ACHS BRYAN; Protocol Melatonin (Melatonin) 3 mg PO QHS PRN PRN PRN Reason: INSOMNIA Nutritional Formula (Nepro Carb Steady) 120 ml PO 4X/DAY BRYAN Ondansetron HCl (Zofran) 4 mg IV Q8H PRN PRN PRN Reason: NAUSEA/VOMITING Oxycodone HCl (Oxyir) 5 mg PO Q6H PRN PRN PRN Reason: Pain Score 6-10/10 Last Admin: 04/10/20 05:35 Dose: 5 mg Documented by: Pantoprazole Sodium (Protonix) 20 mg PO DAILY BRYAN Last Admin: 04/10/20 09:09 Dose: 20 mg Documented by: Sodium Chloride () 10 - 40 ml IV UD PRN PRN Reason: SALINE FLUSH Last Admin: 04/10/20 05:37 Dose: 20 ml Documented by: Warfarin Sodium (Coumadin (Pbkc)) 5 mg PO SuMoWeFrSa@1700 BRYAN Warfarin Sodium (Jantoven) 2.5 mg PO TuTh@1700 [facility] - Past Medical History Past Medical History (Chronic Problems): Chronic Problems (Last Reviewed 04/10/20 @ 05:[address] 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 Reilly Lopez MD) Father Diabetes Lung cancer Mother Heart disease Hypertension Review of Systems Eyes: Reports: - - ROS o/w negative Patient Problems: Active and Suspected Problems (Last Reviewed 04/10/20 @ 05:[address] Reilly Lopez MD) Acute febrile illness (Acute) - Physical Exam Vitals/I&O's: Vital Signs Temp Pulse Resp BP Pulse Ox 99.3 F H 91 20 H 116/58 L 97 04/10/20 10:30 04/10/20 11:00 04/10/20 11:00 04/10/20 10:30 04/10/20 11:00 Oxygen Flow Rate (L/min) 2 Oxygen Delivery Method Nasal Cannula Weight: 43.5 kg Body Mass Index (BMI) 15.5 Finger Stick Blood Glucose 149 Intake and Output for Last 24 Hours 04/08/20 04/09/20 04/10/20 23:59 23:59 23:59 Intake Total 805 / 805 Output Total 0 / 0 Balance 805 / 805 HEENT: - Oral: - - Examination was deferred to conserve personal protective equipment. Microbiology Past 72 Hours 04/10/20 01:45 Mucosa - Nasopharyngeal Respiratory Panel (PCR) - Final Laboratory Results 04/09/20 22:12: WBC 13.2 H, RBC 3.77 L, Hgb 11.5 L, Hct 36.0 L, MCV 95.5, MCH 30.5, MCHC 31.9 L, RDW Std Deviation 41.4, RDW Coeff of Oly 12.0, Plt Count 168, MPV 10.2, Immature Gran % (Auto) 0.300, Neut % (Auto) 87.8 H, Lymph % (Auto) 5.2 L, [place] % (Auto) 5.7, Eos % (Auto) 0.8, Baso % (Auto) 0.2, Absolute Neuts (auto) 11.6 H, Absolute Lymphs (auto) 0.69 L, Nucleated RBC % 0 04/09/20 22:12: PT 20.4 H, INR 1.8 04/09/20 22:12: Sodium 135 L, Potassium 4.2, Chloride 99, Carbon Dioxide 28.0, Anion Gap 8, BUN 29 H, Creatinine 2.50 H, Estim Creat Clear Calc 13.44, Est GFR (MDRD) Af Amer 24 L, Est GFR (MDRD) Non-Af 20 L, BUN/Creatinine Ratio 11.6, Glucose 272 H, Calcium 8.0 L, Total Bilirubin 0.30, AST 13 L, ALT 20, Alkaline Phosphatase 78, Troponin I 0.017, Total Protein 6.4, Albumin 3.2, Globulin 3.2, Albumin/Globulin Ratio 1.0 04/09/20 22:12: Lactic Acid 2.4 H* 04/09/20 22:12: ESR 17 04/09/20 22:12: Ferritin 738 H, C-React Prot Ext Range 7.84 H, Triglycerides 103 04/09/20 22:15: Procalcitonin 0.29 H 04/09/20 22:37: COVID-19 (JANELL) Not Detected 04/10/20 04:20: WBC 12.0 H, RBC 3.32 L, Hgb 10.1 L, Hct 31.3 L, MCV 94.3, MCH 30.4, MCHC 32.3, RDW Std Deviation 41.3, RDW Coeff of Oly 12.0, Plt Count 127 L, MPV 10.2, Immature Gran % (Auto) 0.600, Neut % (Auto) 85.3 H, Lymph % (Auto) 6.6 L, Man[place] % (Auto) 6.5, Eos % (Auto) 0.8, Baso % (Auto) 0.2, Absolute Neuts (auto) 10.2 H, Absolute Lymphs (auto) 0.79 L, Nucleated RBC % 0 04/10/20 04:20: PT 23.0 H, INR 2.1 04/10/20 04:20: Sodium 138, Potassium 4.0, Chloride 102, Carbon Dioxide 28.0, Anion Gap 8, BUN 27 H, Creatinine 1.88 H, Estim Creat Clear Calc 16.94, Est GFR (MDRD) Af Amer 33 L, Est GFR (MDRD) Non-Af 28 L, BUN/Creatinine Ratio 14.4, Glucose 163 H, Calcium 7.5 L 04/10/20 04:20: Lactic Acid 1.0 04/10/20 04:20: D-Dimer Quant (PE/DVT) 2.31 H* 04/10/20 04:20: Magnesium 1.3 L, Lactate Dehydrogenase 170 04/10/20 08:20: Troponin I Cancelled 04/10/20 08:30: Troponin I 0.455 H Current Medications Acetaminophen (Tylenol) 650 mg PO Q8H PRN PRN PRN Reason: Pain Score 1-10/Temp > 100.7 F Last Admin: 04/10/20 09:08 Dose: 650 mg Documented by: Albuterol Sulfate (Ventolin Aerosols) 2.5 mg INHALATION Q2H PRN PRN PRN Reason: SOB/Wheezing Albuterol/Ipratropium (Duoneb) 3 ml INHALATION Q6H.RT [facility] Last Admin: 04/10/20 06:49 Dose: 3 ml Documented by: Amlodipine Besylate (Norvasc) 10 mg PO DAILY [facility] Last Admin: 04/10/20 09:09 Dose: 10 mg Documented by: Atenolol (Tenormin (Beta Kera)) 12.5 mg PO DAILY [facility] Last Admin: 04/10/20 09:10 Dose: 12.5 mg Documented by: Atorvastatin Calcium (Lipitor) 10 mg PO QHS [facility] Azithromycin (Zithromax) 250 mg PO MoWeFr@1000 BRYAN Budesonide (Pulmicort Aerosol) 0.5 mg INHALATION Q12H.RT [facility] Last Admin: 04/10/20 06:49 Dose: 0.5 mg Documented by: Colesevelam HCl (Welchol) 1,875 mg PO BID [facility] Last Admin: 04/10/20 09:12 Dose: 1,875 mg Documented by: Dextrose (D50w Syringe) 0 gm IV X1 PRN; Protocol PRN Reason: Hypoglycemia Glucagon () 1 mg IM .X1 PRN PRN Reason: Hypoglycemia Guaifenesin (Mucinex) 1,200 mg PO BID [facility] Last Admin: 04/10/20 09:09 Dose: 1,200 mg Documented by: Vancomycin IV Pharmacy to Dose (1 ea/ Sodium Chloride) 500 mls @ 250 mls/hr IV X1 PRN; Protocol PRN Reason: Rx to Dose Meropenem 500 mg/ Sodium (Chloride) 60 mls @ 100 mls/hr IV Q12 BRYAN Sodium Chloride () 250 mls @ 15 mls/hr IV .[id number] PRN PRN Reason: Saline Flush Sodium Chloride () 250 mls @ 15 mls/hr IV .[id number] PRN PRN Reason: Additional IVPB Infusion Insulin Human Lispro (Humalog Kwikpen (Bkc)) 0 unit SC ACHS [facility]; Protocol Melatonin (Melatonin) 3 mg PO QHS PRN PRN PRN Reason: INSOMNIA Nutritional Formula (Nepro Carb Steady) 120 ml PO 4X/DAY [facility] Ondansetron HCl (Zofran) 4 mg IV Q8H PRN PRN PRN Reason: NAUSEA/VOMITING Oxycodone HCl (Oxyir) 5 mg PO Q6H PRN PRN PRN Reason: Pain Score 6-10/10 Last Admin: 04/10/20 05:35 Dose: 5 mg Documented by: Pantoprazole Sodium (Protonix) 20 mg PO DAILY [facility] Last Admin: 04/10/20 09:09 Dose: 20 mg Documented by: Sodium Chloride () 10 - 40 ml IV UD PRN PRN Reason: SALINE FLUSH Last Admin: 04/10/20 05:37 Dose: 20 ml Documented by: Warfarin Sodium (Coumadin (Pbkc)) 5 mg PO SuMoWeFrSa@1700 [facility] Warfarin Sodium (Jantoven) 2.5 mg PO TuTh@1700 [facility] Assessment/Plan All Active Problems (Last Reviewed 04/10/20 @ 05:[address] Reilly Lopez MD) Acute febrile illness (Acute) ESRD for HD tomorrow only 3 hours per patient request. Fever with mild leukocytosis awaiting blood cultures. Merrem and vancomycin per primary team. HTN continue current medications. Anemia DOUGLAS with dialysis COPD and other comorbidities as per primary team. The above assessment and plan was discussed at length with the patient via telephone and she agreed to proceed with the plan as outlined above. All the patient's questions were answered to their satisfaction. Thank you very much for allowing me to participate in the care of this patient. Please do not hesitate to call if you have any questions or concerns.
[2020-04-10 12:56] LABS: Bedside Glucose 129 mg/dL (70-110)
--- NOTE | 2020-04-10 13:10 | CASEMGMT ---
Addendum entered by Turner Quintana 04/10/20 16:18: Call placed to [facility] and spoke w/Eduin. He was notified pt has been admitted to [facility]. Original Note: RN CM DYE MAKER CM placed call to pt in her room and assessment completed via phone. Introduced self and role of RN KAMLESH. Pt agreeable to talking w/RN KAMLESH and the following information received. PCP: Dr Rosales Specialists: Dr Hayes--nephrology. Goes to [facility] for Dialysis Tues and Sat. Call placed to [facility] and spoke w/Eduin. He was notified pt is at [facility]. Preferred Pharmacy: [facility] Insurance: [facility], Commercial Other, [facility] Cross-over Prescription Benefit: Yes--[place] Living Will/HPOA: States does not have LW or HCPOA . RNMariella, given information on advanced directives and Social Service rac card to give to pt. Pt made aware RN would be giving this to her. Pt made aware she can call and make an appt with SW as an out-pt if she chooses to complete this paperwork in the future. LNOK: 3 daughters. Taylor listed on demographics as primary contact. Living Arrangements: Lives alone in [address] [place] [address] apt. Has elevate access. Independent w/ADL's. Has aide through [employer] once a week for 3 hrs who assists with groceries, laundry, and cleaning. Receives home-delivered meals through [employer], 7 meals a week. Has CM. She thinks her name is Fabi. Merline BELL, made aware. Transportation: Pt states drives self and states no transportation concerns at this time. Daughter, Taylor, will take pt home @ d/c. DME: Has rails/grab bars in bathroom. Has glucometer--states it is working properly and she has all the needed supplies for it. Does not use DME to ambulate. Denies need for other DME. HHC/SNF: No history of either and no needs identified. Pt denies need for OP therapy. Pt wishes to return home and states has no concerns with going home at time of discharge. CM to follow for any further discharge planning/needs. Pt voices no further concerns/needs at this time. Advised pt to ask for CM if any further questions/concerns/needs arise. Voices understanding. PLAN: Home Tina ROMERON RN CM
--- NOTE | 2020-04-10 13:18 | CASEMGMT ---
ARABELLA called Fabi Ortiz with [facility]. Patient thinks she is her business case analyst. SW left her a voice mail letting her know patient was admitted to the hospital and also left ARABELLA's contact information. Merline BOUDREAUX
--- NOTE | 2020-04-10 16:46 | PCM.RX.CS ---
Consult Pharmacy has been consulted to manage selected antiobiotic: Vancomycin Type of Consult: New start Suspected Infection: Other Prior Doses of Antibiotics Received/Current Regimen: 1250mg iv x 1 04.10.20 @0113 Labs: Sodium 138 mmol/L (136-145) 04/10/20 04:20 Potassium 4.0 mmol/L (3.5-5.1) 04/10/20 04:20 Chloride 102 mmol/L (98-107) 04/10/20 04:20 Carbon Dioxide 28.0 mmol/L (21.0-32.0) 04/10/20 04:20 Anion Gap 8 (5-15) 04/10/20 04:20 BUN 27 mg/dL (7-18) H 04/10/20 04:20 Creatinine 1.88 mg/dL (0.55-1.02) H 04/10/20 04:20 Est GFR (MDRD) Af Amer 33 mL/min (>60) L 04/10/20 04:20 Est GFR (MDRD) Non-Af 28 mL/min (>60) L 04/10/20 04:20 BUN/Creatinine Ratio 14.4 RATIO (10-20) 04/10/20 04:20 Glucose 163 mg/dL (74-106) H 04/10/20 04:20 Microbiology: Microbiology 04/10/20 01:45 Mucosa - Nasopharyngeal Respiratory Panel (PCR) - Final Weight used for dosin.5 kg Estimated Creatinine Clearance: ~17ml/min Goal Trough: 15-20 mcg/mL Pharmacy Plan for Drug Dosing: Patient to have HD on 04.11.20. Have ordered 500mg iv x 1 post dialysis per protocol. Pharmacy Service will continue to monitor and adjust dosing as required.
--- NOTE | 2020-04-10 17:00 | CON.PCM_ITS ---
Problem List (1) Acute febrile illness Status: Acute Reason for Consult: fever Consulted by: Dr. Alaniz History of Present Illness: The patient is a 79 year old F on dialysis intermittently, reports not feeling well for about 2 weeks after completing course of steroids. Had dialysis on 04/08 after that developed weakness, fever, pain between her shoulders, and headache. No aches, no change in taste/smell. Had some brown sputum, some dyspnea. No diarrhea. Came to ED, admitted on vanc/germaine/azithro, in covid precautions. Feeling slightly better today. Sputum has resolved. Full ROS performed and neg except as noted above. - Medical History Past Medical History (Chronic Problems): Chronic Problems (Last Reviewed 04/10/20 @ 05:[address] 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) Benign essential HTN (Chronic) COLD (chronic obstructive lung disease) (Chronic) FCHL (familial combined hyperlipidemia) (Chronic) Gastroesophageal reflux disease (Chronic) History of DVT (deep vein thrombosis) (Chronic) Tobacco abuse (Chronic) Allergies/Adverse Reactions: Allergies gluten Allergy (Unknown, Verified 04/10/20 10:38) Food Allergy diltiazem HCl [From Cardizem] Allergy (Verified 03/10/20 14:03) Angioedema fluticasone furoate [From Breo Ellipta] Allergy (Verified 04/09/20 22:01) PT UNSURE OF REACTION gatifloxacin [From Tequin] Allergy (Verified 03/10/20 14:03) Unknown hydrochlorothiazide [From Maxzide] Allergy (Verified 03/10/20 14:03) Other Penicillins [PCN] Allergy (Verified 03/10/20 14:03) Hives triamterene [From Maxzide] Allergy (Verified 03/10/20 14:03) Other vilanterol [From Breo Ellipta] Allergy (Verified 04/09/20 22:01) PT UNSURE OF REACTION codeine Adverse Reaction (Verified 03/10/20 14:03) Upset Stomach Home Medications: Ambulatory Orders Medication Instructions Recorded Albuterol IH (ProAir) [Proair Hfa 2 puff INHALATION Q4H PRN PRN 12/30/14 (SP)Vent Pts] Omeprazole [Prilosec] 20 mg PO DAILY 12/30/14 amlodipine 5 mg tablet 10 mg PO DAILY 08/28/18 atenolol 25 mg tablet 12.5 mg PO DAILY 08/28/18 Simvastatin 20 mg PO DAILY 12/24/18 Tiotropium [place] [Spiriva 2 puff INHALATION DAILY 01/17/19 Respimat] Warfarin Sodium [Coumadin] 5 mg PO SUMOWEFRSA 01/17/19 mometasone-formoterol HFA 200 2 puff INHALATION BID #3 device 04/30/19 mcg-5 mcg/actuation aerosol inhaler colesevelam 625 mg tablet 1,875 mg PO BID 12/13/19 guaifenesin 1,200 mg tablet, 1,200 mg PO BID 03/10/20 extended release 12 hr Azithromycin 250 mg PO MOWEFR 04/09/20 Glimepiride 0.5 mg PO DAILY 04/09/20 Warfarin [Coumadin (PBKC)] 2.5 mg PO TUTH 04/09/20 - Social History Tobacco Use: cigarettes Vital Signs Temp Pulse Resp BP Pulse Ox 99.3 F H 81 20 H 116/58 L 97 04/10/20 10:30 04/10/20 12:00 04/10/20 11:00 04/10/20 10:30 04/10/20 11:00 Oxygen Flow Rate (L/min) 2 Oxygen Delivery Method Nasal Cannula Weight: 43.5 kg Body Mass Index (BMI) 15.5 Finger Stick Blood Glucose 149 Microbiology Past 72 Hours 04/10/20 01:45 Respiratory Panel (PCR) - Final Mucosa - Nasopharyngeal Laboratory Tests Past 24 Hrs 04/09/20 04/09/20 04/09/20 22:12 22:12 22:12 WBC 13.2 H RBC 3.77 L Hgb 11.5 L Hct 36.0 L MCV 95.5 MCH 30.5 MCHC 31.9 L RDW Std Deviation 41.4 RDW Coeff of Oly 12.0 Plt Count 168 MPV 10.2 Immature Gran % (Auto) 0.300 Neut % (Auto) 87.8 H Lymph % (Auto) 5.2 L Meagher % (Auto) 5.7 Eos % (Auto) 0.8 Baso % (Auto) 0.2 Absolute Neuts (auto) 11.6 H Absolute Lymphs (auto) 0.69 L Nucleated RBC % 0 ESR PT 20.4 H INR 1.8 D-Dimer Quant (PE/DVT) Sodium 135 L Potassium 4.2 Chloride 99 Carbon Dioxide 28.0 Anion Gap 8 BUN 29 H Creatinine 2.50 H Estim Creat Clear Calc 13.44 Est GFR (MDRD) Af Amer 24 L Est GFR (MDRD) Non-Af 20 L BUN/Creatinine Ratio 11.6 Glucose 272 H Lactic Acid Calcium 8.0 L Magnesium Ferritin Total Bilirubin 0.30 AST 13 L ALT 20 Alkaline Phosphatase 78 Lactate Dehydrogenase Troponin I 0.017 C-React Prot Ext Range Total Protein 6.4 Albumin 3.2 Globulin 3.2 Albumin/Globulin Ratio 1.0 Triglycerides Procalcitonin COVID-19 (JANELL) 04/09/20 04/09/20 04/09/20 22:12 22:12 22:12 WBC RBC Hgb Hct MCV MCH MCHC RDW Std Deviation RDW Coeff of Oly Plt Count MPV Immature Gran % (Auto) Neut % (Auto) Lymph % (Auto) Meagher % (Auto) Eos % (Auto) Baso % (Auto) Absolute Neuts (auto) Absolute Lymphs (auto) Nucleated RBC % ESR 17 PT INR D-Dimer Quant (PE/DVT) Sodium Potassium Chloride Carbon Dioxide Anion Gap BUN Creatinine Estim Creat Clear Calc Est GFR (MDRD) Af Amer Est GFR (MDRD) Non-Af BUN/Creatinine Ratio Glucose Lactic Acid 2.4 H* Calcium Magnesium Ferritin 738 H Total Bilirubin AST ALT Alkaline Phosphatase Lactate Dehydrogenase Troponin I C-React Prot Ext Range 7.84 H Total Protein Albumin Globulin Albumin/Globulin Ratio Triglycerides 103 Procalcitonin COVID-19 (JANELL) 04/09/20 04/09/20 04/10/20 22:15 22:37 04:20 WBC 12.0 H RBC 3.32 L Hgb 10.1 L Hct 31.3 L MCV 94.3 MCH 30.4 MCHC 32.3 RDW Std Deviation 41.3 RDW Coeff of Oly 12.0 Plt Count 127 L MPV 10.2 Immature Gran % (Auto) 0.600 Neut % (Auto) 85.3 H Lymph % (Auto) 6.6 L Meagher % (Auto) 6.5 Eos % (Auto) 0.8 Baso % (Auto) 0.2 Absolute Neuts (auto) 10.2 H Absolute Lymphs (auto) 0.79 L Nucleated RBC % 0 ESR PT INR D-Dimer Quant (PE/DVT) Sodium Potassium Chloride Carbon Dioxide Anion Gap BUN Creatinine Estim Creat Clear Calc Est GFR (MDRD) Af Amer Est GFR (MDRD) Non-Af BUN/Creatinine Ratio Glucose Lactic Acid Calcium Magnesium Ferritin Total Bilirubin AST ALT Alkaline Phosphatase Lactate Dehydrogenase Troponin I C-React Prot Ext Range Total Protein Albumin Globulin Albumin/Globulin Ratio Triglycerides Procalcitonin 0.29 H COVID-19 (JANELL) Not Detected 04/10/20 04/10/20 04/10/20 04:20 04:20 04:20 WBC RBC Hgb Hct MCV MCH MCHC RDW Std Deviation RDW Coeff of Oly Plt Count MPV Immature Gran % (Auto) Neut % (Auto) Lymph % (Auto) Meagher % (Auto) Eos % (Auto) Baso % (Auto) Absolute Neuts (auto) Absolute Lymphs (auto) Nucleated RBC % ESR PT 23.0 H INR 2.1 D-Dimer Quant (PE/DVT) Sodium 138 Potassium 4.0 Chloride 102 Carbon Dioxide 28.0 Anion Gap 8 BUN 27 H Creatinine 1.88 H Estim Creat Clear Calc 16.94 Est GFR (MDRD) Af Amer 33 L Est GFR (MDRD) Non-Af 28 L BUN/Creatinine Ratio 14.4 Glucose 163 H Lactic Acid 1.0 Calcium 7.5 L Magnesium Ferritin Total Bilirubin AST ALT Alkaline Phosphatase Lactate Dehydrogenase Troponin I C-React Prot Ext Range Total Protein Albumin Globulin Albumin/Globulin Ratio Triglycerides Procalcitonin COVID-19 (JANELL) 04/10/20 04/10/20 04/10/20 04:20 04:20 08:20 WBC RBC Hgb Hct MCV MCH MCHC RDW Std Deviation RDW Coeff of Oly Plt Count MPV Immature Gran % (Auto) Neut % (Auto) Lymph % (Auto) Meagher % (Auto) Eos % (Auto) Baso % (Auto) Absolute Neuts (auto) Absolute Lymphs (auto) Nucleated RBC % ESR PT INR D-Dimer Quant (PE/DVT) 2.31 H* Sodium Potassium Chloride Carbon Dioxide Anion Gap BUN Creatinine Estim Creat Clear Calc Est GFR (MDRD) Af Amer Est GFR (MDRD) Non-Af BUN/Creatinine Ratio Glucose Lactic Acid Calcium Magnesium 1.3 L Ferritin Total Bilirubin AST ALT Alkaline Phosphatase Lactate Dehydrogenase 170 Troponin I Cancelled C-React Prot Ext Range Total Protein Albumin Globulin Albumin/Globulin Ratio Triglycerides Procalcitonin COVID-19 (JANELL) 04/10/20 04/10/20 08:30 11:45 WBC RBC Hgb Hct MCV MCH MCHC RDW Std Deviation RDW Coeff of Oly Plt Count MPV Immature Gran % (Auto) Neut % (Auto) Lymph % (Auto) Meagher % (Auto) Eos % (Auto) Baso % (Auto) Absolute Neuts (auto) Absolute Lymphs (auto) Nucleated RBC % ESR PT INR D-Dimer Quant (PE/DVT) Sodium Potassium Chloride Carbon Dioxide Anion Gap BUN Creatinine Estim Creat Clear Calc Est GFR (MDRD) Af Amer Est GFR (MDRD) Non-Af BUN/Creatinine Ratio Glucose Lactic Acid Calcium Magnesium Ferritin Total Bilirubin AST ALT Alkaline Phosphatase Lactate Dehydrogenase Troponin I 0.455 H 0.653 H* C-React Prot Ext Range Total Protein Albumin Globulin Albumin/Globulin Ratio Triglycerides Procalcitonin COVID-19 (JANELL) - Other Studies Radiology: [] reviewed Other Studies: [] Route of nutrition/ use of supplements: [] Nutritional Intake: [] IV Site: [] Crane Catheter: [] - Physical Exam General: Alert, Oriented x3, Cooperative, No apparent distress HEENT: Atraumatic, PERRLA, EOMI Neck: Supple, No Nodes Lungs: Diminished Cardiovascular: Regular rate, Regular Rhythm Abdomen: Soft, Non Tender, Non-Distended Extremities: No edema Skin: No rashes IV Site: Central Line, without redness Musculoskeletal: No Tenderness to Palpation of Joints or Extremities Neurological: Cranial nerves II-XII grossly intact - Assessment/Plan Antibiotics: [] Assessment/Plan: [] Active and Suspected Problems (Last Reviewed 04/10/20 @ 05:[address] Reilly Lopez MD) Acute febrile illness (Acute) Low grade fever here. Elevated d-dimer, lymphopenia, lactic acidosis, elevated trop. COVID pcr neg. CXR relatively clear. Some sputum prior to presentation. Hives reported with PCN in the past. On dialysis via tunneled cath, no signs of inflammation at the site. Bcx pending. Will stop vanc, monitor cxs. Cont germaine and azithro for now. Keep in covid precautions for now. Trop still trending up. will follow, thank you.
[2020-04-10 17:50] LABS: Bedside Glucose 108 mg/dL (70-110)
--- NOTE | 2020-04-10 19:34 | NURSING ---
dr lundberg notified of tropinin results orders received
[2020-04-10] MEDS: MELATONIN 3 MG TABLET PO (21:02)
[2020-04-10] MEDS: Atorvastatin Calcium 10 MG Tablet PO (21:04)
[2020-04-10] MEDS: Aspirin 81 MG TAB.CHEW PO (21:04)
[2020-04-10] MEDS: Nepro Liquid 120 ML LIQUID PO (21:05)
[2020-04-10 21:30] LABS: Bedside Glucose 128 mg/dL (70-110)
[2020-04-10 21:37] LABS: Bacteria 0 SEEN /hpf (None Seen); Mucous, Urine 0 SEEN /hpf (<or=2+)
[2020-04-10 21:43] LABS: Color, Urine Yellow (Yellow); Glucose, Dipstick Normal (Normal); Ketone-Dipstick Negative (Negative); Leukocyte Esterase-Dipstick 100 /ul (Negative); Nitrite-Dipstick Negative (Negative); Occult Blood-Urine 50 /ul (Negative); Protein-Dipstick 100 mg/dl (Negative); Specific Gravity, Urine 1.015 (1.002-1.030); Urine Bilirubin Dipstick Negative (Negative); Urine Clarity Sl. Cloudy (Clear); Urine Urobilinogen Normal (Normal)
[2020-04-10 21:56] LABS: Red Blood Cells-Urine 0-5 SEEN /hpf (0-5); Squamous Epithelial Cells - UA 0-5 SEEN /hpf (5-10); Transitional Epithelial - Ur 0-5 SEEN /hpf (0-5); White Blood Cells 5-10 SEEN /hpf (0-5)
[2020-04-11] VITALS (23 sets, daily range): BP systolic 123–159; BP diastolic 33–101; PULSE 75–99; RESP 14–25; TEMP 36.5–37; O2SAT 92–100
[2020-04-11 03:21] LABS: Absolute Lymphocyte Count 1.37 X10^3/uL (0.83-4.51); Absolute Neutrophil Count 8.6 X10^3/uL (2.0-7.7); Basophil# 0.02 X10^3/uL; Basophil% 0.2 % (0-1); Eosinophil# 0.31 X10^3/uL; Eosinophils% 2.8 % (0-5); Hematocrit 29.7 % (37-47); Hemoglobin 9.6 g/dL (12.0-15.0); Lymphocyte # 1.37 X10^3/ul (4.0); Lymphocyte % 12.3 % (19-41); Mean Corp Hgb Conc 32.3 g/dL (32-36); Mean Corpuscular Volume 95.8 fL (81-99); Mean Platelet Vol. 10.2 fl (6.2-12.0); Monocyte# 0.77 X10^3/uL; Monocyte% 6.9 % (0-10); NRBC Flagged by Analyzer 0 % (0-5); Neutrophil # 8.61 X10^3/uL (2.7-7.7); Neutrophil % 77.5 % (47-70); Platelet Count 134 K/mm3 (150-450); RBC Distribution Width CV 12.1 % (11.6-14.6); RBC Distribution Width SD 42.1 fl (35.1-43.9); White Blood Count 11.1 K/mm3 (4.4-11.0)
[2020-04-11 03:27] LABS: International Normalized Ratio 3.1; Prothrombin Time (Protime)PT. 31.8 SECONDS (11.7-14.9)
[2020-04-11 03:30] LABS: M R Staph aureus DNA By PCR Negative (Negative); Probe Check PASS; Specimen Processing Control PASS
[2020-04-11 03:37] LABS: ALB/GLOB Ratio 0.8 RATIO (0.9-2.4); AST(SGOT) 12 U/L (15-37); Alanine Aminotransfer ALT/SGPT 14 U/L (13-56); Albumin, Serum 2.3 g/dL (3.2-5.0); Alkaline Phosphatase 62 U/L (45-117); Anion Gap 5 (5-15); BUN 29 mg/dL (7-18); BUN/Creat Ratio 19.9 RATIO (10-20); Calcium,Total 8.1 mg/dL (8.5-10.1); Chloride 98 mmol/L (98-107); Creatinine, Serum 1.46 mg/dL (0.55-1.02); EST Glomerular Filtration Rate 37 mL/min (>60); Est Glom Filt Rate - Afr Amer 45 mL/min (>60); Estimated Creatinine Clearance 21.81 ml/min; Glucose 108 mg/dL (74-106); Protein, Total 5.3 g/dL (6.4-8.2); Sodium Level 134 mmol/L (136-145)
--- NOTE | 2020-04-11 05:55 | EKG12_ITS ---
Test Reason : AM EKG Blood Pressure : / mmHG Vent. Rate : 078 BPM Atrial Rate : 078 BPM P-R Int : 128 ms QRS Dur : 090 ms QT Int : 428 ms P-R-T Axes : 088 078 -71 degrees QTc Int : 487 ms Normal sinus rhythm Left ventricular hypertrophy with repolarization abnormality Abnormal ECG When compared with ECG of 09-APR-2020 22:05, MANUAL COMPARISON REQUIRED, DATA IS UNCONFIRMED Confirmed by REYMUNDO GARAY, YANELY ([id number]), editorial writer LUIS MENDEZ ([id number]) on 04/15/2020 11:04:23 AM Referred By: TAMIA Confirmed By:YANELY DWYER MD
--- NOTE | 2020-04-11 05:55 | RAD_ITS ---
HISTORY: cough Tamp; sob ADDITIONAL HISTORY: None provided. TECHNIQUE: Frontal chest radiograph. Number of images including paperwork: 1 COMPARISON: 04/09/2020 FINDINGS: LUNGS AND PLEURA: Hyperinflation again seen. No consolidation, mass or pleural effusion. CARDIAC SILHOUETTE: Stable. MEDIASTINUM AND YANELI: Unchanged aortic calcification and tortuosity. UPPER ABDOMEN: Unremarkable. SKELETON AND SOFT TISSUES: No acute findings. OTHER DEVICES AND HARDWARE: Unchanged right-sided central venous catheter. RAD/Chest 1 View (Portable) IMPRESSION: No acute cardiopulmonary abnormality. No significant interval change. at 0749 Reported and signed by: Maria Isabel Medrano MD Electronically Signed: Maria Isabel Medrano MD at 7:49 EDT Tel , Service support ,
--- NOTE | 2020-04-11 06:54 | PN_ITS ---
Patient Problems: Active and Suspected Problems (Last Reviewed 04/10/20 @ 05:[address] Reilly Lopez MD) Acute febrile illness (Acute) Subjective: Patient notes feeling mildly less fatigued than day prior and lessen cough, no dyspnea, resolution of frontal headache with no nausea, emesis, abdominal cramping or diarrhea. Patient with no low-grade temperatures noted overnight. Discussed patient's elevated cardiac enzyme and suspect secondary to acute presentation with continue trending and planned echocardiogram with deferral of any stress testing to outpatient per discussions with cardiology. Patient with planned dialysis today for 3 hours and requested that patient have blood culture taken via dialysis access. Patient denies fevers, chills, nausea, emesis, abdominal pain, chest pain or dyspnea. Objective: Physical Examination: General: awake, alert, oriented x 3 and cooperative, seated upright, laying in the ICU bed, fatigued, otherwise NAD. Skin: normal color, turgor, no icterus, cyanosis. HEENT: AT/NC, EOMI, PERRLA, improved less dry MM. Lungs: Diminished BS, > bases, moderate decrease BL bases, no rales, ronchi or wheezing. Heart: Regular rate and rhythm; no gallop, rub audible. Abdomen: soft, cachetic habitus, NTTP, ND, normal BS. Extremities: no cyanosis, clubbing, or edema. Neurological: patient awake, alert, oriented x 3; cognitive function appears baseline intact; pupils equally reactive to light and accomodation; cranial nerves II-XII grossly normal, moving all 4 extremities, no focal deficits, strength moderately to severely decreased secondary to acute presentation. Psychiatric: affect appears fatigued, no acute evidence of depressive or anxiety feelings. Vitals/I&O's: Vital Signs Temp Pulse Resp BP Pulse Ox 97.7 F L 77 14 128/58 H 97 04/11/20 03:00 04/11/20 05:00 04/11/20 05:00 04/11/20 03:40 04/11/20 03:00 Oxygen Flow Rate (L/min) 2 Oxygen Delivery Method Nasal Cannula Weight: 95 lb 10.89 oz Body Mass Index (BMI) 15.5 Finger Stick Blood Glucose 149 Intake and Output for Last 24 Hours 04/09/20 04/10/20 04/11/20 23:59 23:59 23:59 Intake Total 1365 / 1685 380 / 380 Output Total 0 / 50 150 / 150 Balance 1365 / 1635 230 / 230 Microbiology Past 72 Hours 04/10/20 21:25 Urine, Clean Catch Streptococcus pneumoniae Antigen (M - Final 04/10/20 21:25 Urine, Clean Catch Legionella Antigen - Final 04/10/20 01:45 Mucosa - Nasopharyngeal Respiratory Panel (PCR) - Final Laboratory Results 04/09/20 22:12: Ferritin 738 H, C-React Prot Ext Range 7.84 H, Triglycerides 103 04/09/20 22:15: Procalcitonin 0.29 H 04/10/20 04:20: D-Dimer Quant (PE/DVT) 2.31 H* 04/10/20 04:20: Magnesium 1.3 L, Lactate Dehydrogenase 170 04/10/20 08:20: Troponin I Cancelled 04/10/20 08:30: Troponin I 0.455 H 04/10/20 11:45: Troponin I 0.653 H* 04/10/20 12:33: POC Glucose 129 H 04/10/20 16:55: Troponin I 0.556 H 04/10/20 17:03: POC Glucose 108 04/10/20 21:00: MRSA (PCR) Negative 04/10/20 21:18: POC Glucose 128 H 04/10/20 21:25: Urine Color Yellow, Urine Clarity Sl. Cloudy, Urine pH 6.0, Ur Specific [place] 1.015, Urine Protein 100 H, Urine Glucose (UA) Normal, Urine Ketones Negative, Urine Occult Blood 50 H, Urine Nitrite Negative, Urine Bilirubin Negative, Urine Urobilinogen Normal, Ur Leukocyte Esterase 100 H, Urine RBC 0-5 SEEN, Urine WBC 5-10 SEEN, Ur Squamous Epith Cells 0-5 SEEN, Ur Transition Epith Cell 0-5 SEEN, Urine Bacteria 0 SEEN, Urine Mucus 0 SEEN 04/11/20 03:05: WBC 11.1 H, RBC 3.10 L, Hgb 9.6 L, Hct 29.7 L, MCV 95.8, MCH 31.0, MCHC 32.3, RDW Std Deviation 42.1, RDW Coeff of Oly 12.1, Plt Count 134 L, MPV 10.2, Immature Gran % (Auto) 0.300, Neut % (Auto) 77.5 H, Lymph % (Auto) 12.3 L, [place] % (Auto) 6.9, Eos % (Auto) 2.8, Baso % (Auto) 0.2, Absolute Neuts (auto) 8.6 H, Absolute Lymphs (auto) 1.37, Nucleated RBC % 0 04/11/20 03:05: Sodium 134 L, Potassium 4.0, Chloride 98, Carbon Dioxide 31.0, Anion Gap 5, BUN 29 H, Creatinine 1.46 H, Estim Creat Clear Calc 21.81, Est GFR (MDRD) Af Amer 45 L, Est GFR (MDRD) Non-Af 37 L, BUN/Creatinine Ratio 19.9, Glucose 108 H, Calcium 8.1 L, Total Bilirubin 0.50, AST 12 L, ALT 14, Alkaline Phosphatase 62, Total Protein 5.3 L, Albumin 2.3 L, Globulin 3.0, Albumin/Globulin Ratio 0.8 L 04/11/20 03:05: PT 31.8 H, INR 3.1 Current Medications Acetaminophen (Tylenol) 650 mg PO Q8H PRN PRN PRN Reason: Pain Score 1-10/Temp > 100.7 F Last Admin: 04/10/20 21:03 Dose: 650 mg Documented by: Albuterol Sulfate (Ventolin Aerosols) 2.5 mg INHALATION Q2H PRN PRN PRN Reason: SOB/Wheezing Albuterol/Ipratropium (Duoneb) 3 ml INHALATION Q6H.RT [facility] Last Admin: 04/11/20 01:02 Dose: Not Given Documented by: Amlodipine Besylate (Norvasc) 10 mg PO DAILY [facility] Last Admin: 04/10/20 09:09 Dose: 10 mg Documented by: Aspirin (Aspirin, Baby) 81 mg PO DAILY@0800 [facility] Atenolol (Tenormin (Beta Kera)) 12.5 mg PO DAILY [facility] Last Admin: 04/10/20 09:10 Dose: 12.5 mg Documented by: Atorvastatin Calcium (Lipitor) 10 mg PO QHS [facility] Last Admin: 04/10/20 21:04 Dose: 10 mg Documented by: Azithromycin (Zithromax) 250 mg PO MoWeFr@1000 [facility] Budesonide (Pulmicort Aerosol) 0.5 mg INHALATION Q12H.RT [facility] Last Admin: 06/18/20 19:12 Dose: 0.5 mg Documented by: Colesevelam HCl (Welchol) 1,875 mg PO BID [facility] Last Admin: 04/10/20 21:02 Dose: 1,875 mg Documented by: Dextrose (D50w Syringe) 0 gm IV X1 PRN; Protocol PRN Reason: Hypoglycemia Glucagon () 1 mg IM .X1 PRN PRN Reason: Hypoglycemia Guaifenesin (Mucinex) 1,200 mg PO BID [facility] Last Admin: 04/10/20 21:02 Dose: 1,200 mg Documented by: Sodium Chloride () 250 mls @ 15 mls/hr IV .[id number] PRN PRN Reason: Saline Flush Sodium Chloride () 250 mls @ 15 mls/hr IV .[id number] PRN PRN Reason: Additional IVPB Infusion Meropenem 500 mg/ Sodium (Chloride) 60 mls @ 100 mls/hr IV DAILY@1500 [facility] Insulin Human Lispro (Humalog Kwikpen (Bkc)) 0 unit SC ACHS [facility]; Protocol Last Admin: 04/10/20 21:20 Dose: Not Given Documented by: Melatonin (Melatonin) 3 mg PO QHS PRN PRN PRN Reason: INSOMNIA Last Admin: 04/10/20 21:02 Dose: 3 mg Documented by: Nutritional Formula (Nepro Carb Steady) 120 ml PO 4X/DAY [facility] Last Admin: 04/10/20 21:05 Dose: 120 ml Documented by: Ondansetron HCl (Zofran) 4 mg IV Q8H PRN PRN PRN Reason: NAUSEA/VOMITING Oxycodone HCl (Oxyir) 5 mg PO Q6H PRN PRN PRN Reason: Pain Score 6-10/10 Last Admin: 04/10/20 19:29 Dose: 5 mg Documented by: Pantoprazole Sodium (Protonix) 20 mg PO DAILY [facility] Last Admin: 04/10/20 09:09 Dose: 20 mg Documented by: Sodium Chloride () 10 - 40 ml IV UD PRN PRN Reason: SALINE FLUSH Last Admin: 04/10/20 05:37 Dose: 20 ml Documented by: Warfarin Sodium (Coumadin (Pbkc)) 5 mg PO SuMoWeFrSa@1700 [facility] Warfarin Sodium (Jantoven) 2.5 mg PO TuTh@1700 [facility] Last Admin: 04/10/20 17:04 Dose: 2.5 mg Documented by: STROKE Vital Signs/Narrative: Vital Signs Temp Pulse Resp BP BP Pulse Ox 04/11/20 05:00 77 14 04/11/20 03:40 76 15 128/58 H 04/11/20 03:22 76 04/11/20 03:00 97.7 F L 79 19 H 129/66 H 97 Medical Necessity - Tobacco Use Smoking Status: Current every day smoker Assessment/Plan All Active Problems (Last Reviewed 04/10/20 @ 05:[address] Reilly Lopez MD) Acute febrile illness (Acute) The patient is a 79 y/o F w/ PMHx: ESRD on HD (Following w/ Dr. Hayes, recent restart HD), Severe protein calorie malnutrition, Chronic COPD, Hx Lung CA, HTN, HLD, Celiac disease, Hx DVT, GERD, Diabetes mellitus type II, Hx DVTs on coumadin who presents to the [facility] ED on 04/09/20 with history of onset fever at home T 100 with increased fatigue and mildly productive cough with no recent sore throat, nausea, emesis, abdominal pain, alteration to sense of taste or smell or diarrhea. 1. SIRS with lactic acidosis of unclear etiology, Possible COVID: ED presentation with CBC with WBC 13.2, hemoglobin 11.5, platelet 168 with left shift with concurrent lymphopenia, initial INR 1.8, CMP with sodium 135, BUN/creatinine 29/2.50, glucose 272, lactic acid 2.4, unremarkable hepatic profile, troponin 0 0.017, Coronavirus testing negative, respiratory panel unrem arkable, blood culture x2 obtained in the ED but unclear if 1 was via the dialysis port, chest x-ray with no acute cardiopulmonary findings, EKG with sinus tachycardia with no acute evidence of ischemia. Patient admitted to medical surgical status in the ICU given COVID pending upon presentation however resulted negative as noted, continued judicious hydration with repeat lactic 1.0, maintained on meropenem and vancomycin, continued Coumadin INR trending, negative urine antigens, pending sputum culture however preliminary notes normal respiratory randall appearance, blood culture x2 pending per ED with no growth thus far, procalcitonin 0.29, LDH 170, ferritin 738, CRP 7.84, d-dimer 2.31 with duplex ultrasound obtained given subtherapeutic INR with noted Bilateral clot in the left lower extremity soleus vein, additional dose of Coumadin administered with analysis therapeutic level, planned blood culture x1 by HD access today given dialysis 04/11/2020 per discussions with nephrology. Infectious disease consulted and following and agrees with current interventions in addition to discontinuation of vancomycin and continue meropenem and azithromycin with continued COVID precautions. Continue to trend CBC, CMP and INR as noted. 2. Elevated cardiac enzymes w/ NSTEMI secondary to Demand ischemia secondary to acute presentation #1: Admission troponin 0.017, denied any chest discomfort, as noted admitted to the ICU and maintained on telemetry monitoring with no events have a repeat cardiac trending with increased levels 0.455->0.653->0.556, repeat EKG without acute evidence of ischemia, maintained on asa therapy, magnesium level obtained and noted to be 1.3 with supplementation administered, echocardiogram requested. Cardiology consulted and planned outpatient stress testing once clinically improved and appropriate. 3. Acute LLE Soleus Vein Clot w/ Hx DVTs: Given subtherapeutic INR upon presentation and possible COVID, d-dimer obtained and was elevated, duplex ultrasound obtained given significant underlying renal disease with avoidance of CTPA and noted clots, extra dose Coumadin administered and now therapeutic INR, continue to trend. 4. ESRD: Admission BUN/Cr 29/2.50 with repeat 04/11/20 BUN/Cr 29/1.46. 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 5. Hypertension: Continue home regimen including amlodipine, atenolol hold parameters as needed, PRN hydralazine. 6. Hyperlipidemia: Continue home statin regimen. 7. Chronic COPD: Will maintain on oxygen with wean as tolerated to room air, continue ATC duonebs, PRN albuterol, HOB, IS parameters. 8. Diabetes mellitus type II: Hold oral home regimen, ADA diet, accu checks w/ ISS. 9. Severe protein calorie malnutrition: Evidenced per habitus, reduced BMI of 15, obvious muscle and fat loss, nutrition consulted for recommendations. 10. AOCD: Hemoglobin 11.5, repeat 10.1->04/11/20 Hgb 9.6, continue to trend, stable. 11. GERD: Maintain on PPI. 12. DVT Prophylaxis: SCDs, coumadin w/ INR trending. 13. CODE STATUS: Full code. Inpatient E&M: 81171 Subs Hosp L3
[2020-04-11 06:56] LABS: Bedside Glucose 85 mg/dL (70-110)
[2020-04-11] MEDS: Ipratropium/Albuterol Sulfate 3 ML AMPUL.NEB INHALATION ×2 (07:01→19:13)
[2020-04-11] MEDS: Budesonide Respules 0.5 MG/2 ML AMPUL.NEB. INHALATION (07:01)
[2020-04-11] MEDS: guaiFENesin 1,200 MG Tablet 1200 MG PO ×2 (09:39→21:52)
[2020-04-11] MEDS: Aspirin 81 MG TAB.CHEW PO (09:40)
[2020-04-11] MEDS: amLODIPine 10 MG Tablet PO (09:40)
[2020-04-11] MEDS: Pantoprazole Sodium 20 MG Tablet PO (09:40)
[2020-04-11] MEDS: Atenolol 25 MG Tablet 12.5 MG PO (09:40)
[2020-04-11] MEDS: Azithromycin 250 MG Tablet PO (09:43)
[2020-04-11 12:21] LABS: Bedside Glucose 99 mg/dL (70-110)
--- NOTE | 2020-04-11 13:02 | PN.RENAL_ITS ---
Patient Problems: Active and Suspected Problems (Last Reviewed 04/10/20 @ 05:[address] Reilly Lopez MD) Acute febrile illness (Acute) Subjective: no new c/o per RN - Physical Exam Vitals/I&O's: Vital Signs Temp Pulse Resp BP Pulse Ox 98.6 F 85 22 H 133/101 H 96 04/11/20 09:00 04/11/20 12:00 04/11/20 09:00 04/11/20 09:00 04/11/20 10:55 Oxygen Flow Rate (L/min) 2 Oxygen Delivery Method Room Air Weight: 43.4 kg Body Mass Index (BMI) 15.5 Finger Stick Blood Glucose 149 Intake and Output for Last 24 Hours 04/09/20 04/10/20 04/11/20 23:59 23:59 23:59 Intake Total 1365 / 1685 730 / 730 Output Total 0 / 50 650 / 650 Balance 1365 / 1635 80 / 80 Comment: Examination was deferred to conserve PPE and prevent further transmission Microbiology Past 72 Hours 04/10/20 21:15 Sputum, Expectorated/Coughed Gram Stain - Final 04/10/20 21:25 Urine, Clean Catch Streptococcus pneumoniae Antigen (M - Final 04/10/20 21:25 Urine, Clean Catch Legionella Antigen - Final 04/10/20 01:45 Mucosa - Nasopharyngeal Respiratory Panel (PCR) - Final Laboratory Results 04/10/20 11:45: Troponin I 0.653 H* 04/10/20 16:55: Troponin I 0.556 H 04/10/20 17:03: POC Glucose 108 04/10/20 21:00: MRSA (PCR) Negative 04/10/20 21:18: POC Glucose 128 H 04/10/20 21:25: Urine Color Yellow, Urine Clarity Sl. Cloudy, Urine pH 6.0, Ur Specific [place] 1.015, Urine Protein 100 H, Urine Glucose (UA) Normal, Urine Ketones Negative, Urine Occult Blood 50 H, Urine Nitrite Negative, Urine Bilirubin Negative, Urine Urobilinogen Normal, Ur Leukocyte Esterase 100 H, Urine RBC 0-5 SEEN, Urine WBC 5-10 SEEN, Ur Squamous Epith Cells 0-5 SEEN, Ur Transition Epith Cell 0-5 SEEN, Urine Bacteria 0 SEEN, Urine Mucus 0 SEEN 04/11/20 03:05: WBC 11.1 H, RBC 3.10 L, Hgb 9.6 L, Hct 29.7 L, MCV 95.8, MCH 31.0, MCHC 32.3, RDW Std Deviation 42.1, RDW Coeff of [place] 12.1, Plt Count 134 L, MPV 10.2, Immature Gran % (Auto) 0.300, Neut % (Auto) 77.5 H, Lymph % (Auto) 12.3 L, [place] % (Auto) 6.9, Eos % (Auto) 2.8, Baso % (Auto) 0.2, Absolute Neuts (auto) 8.6 H, Absolute Lymphs (auto) 1.37, Nucleated RBC % 0 04/11/20 03:05: Sodium 134 L, Potassium 4.0, Chloride 98, Carbon Dioxide 31.0, Anion Gap 5, BUN 29 H, Creatinine 1.46 H, Estim Creat Clear Calc 21.81, Est GFR (MDRD) Af Amer 45 L, Est GFR (MDRD) Non-Af 37 L, BUN/Creatinine Ratio 19.9, Glucose 108 H, Calcium 8.1 L, Total Bilirubin 0.50, AST 12 L, ALT 14, Alkaline Phosphatase 62, Total Protein 5.3 L, Albumin 2.3 L, Globulin 3.0, Albumin/Globulin Ratio 0.8 L 04/11/20 03:05: PT 31.8 H, INR 3.1 04/11/20 06:45: POC Glucose 85 04/11/20 12:13: POC Glucose 99 Current Medications Acetaminophen (Tylenol) 650 mg PO Q8H PRN PRN PRN Reason: Pain Score 1-10/Temp > 100.7 F Last Admin: 04/10/20 21:03 Dose: 650 mg Documented by: Albuterol Sulfate (Ventolin Aerosols) 2.5 mg INHALATION Q2H PRN PRN PRN Reason: SOB/Wheezing Albuterol/Ipratropium (Duoneb) 3 ml INHALATION Q6H.RT [facility] Last Admin: 04/11/20 07:01 Dose: 3 ml Documented by: Amlodipine Besylate (Norvasc) 10 mg PO DAILY [facility] Last Admin: 04/11/20 09:40 Dose: 10 mg Documented by: Aspirin (Aspirin, Baby) 81 mg PO DAILY@0800 [facility] Last Admin: 04/11/20 09:40 Dose: 81 mg Documented by: Atenolol (Tenormin (Beta Kera)) 12.5 mg PO DAILY [facility] Last Admin: 04/11/20 09:40 Dose: 12.5 mg Documented by: Atorvastatin Calcium (Lipitor) 10 mg PO QHS [facility] Last Admin: 04/10/20 21:04 Dose: 10 mg Documented by: Azithromycin (Zithromax) 250 mg PO MoWeFr@1000 [facility] Last Admin: 04/11/20 09:43 Dose: 250 mg Documented by: Budesonide (Pulmicort Aerosol) 0.5 mg INHALATION Q12H.RT [facility] Last Admin: 04/11/20 07:01 Dose: 0.5 mg Documented by: Colesevelam HCl (Welchol) 1,875 mg PO BID [facility] Last Admin: 04/11/20 09:39 Dose: 1,875 mg Documented by: Dextrose (D50w Syringe) 0 gm IV X1 PRN; Protocol PRN Reason: Hypoglycemia Glucagon () 1 mg IM .X1 PRN PRN Reason: Hypoglycemia Guaifenesin (Mucinex) 1,200 mg PO BID [facility] Last Admin: 04/11/20 09:39 Dose: 1,200 mg Documented by: Sodium Chloride () 250 mls @ 15 mls/hr IV .[id number] PRN PRN Reason: Saline Flush Sodium Chloride () 250 mls @ 15 mls/hr IV .[id number] PRN PRN Reason: Additional IVPB Infusion Meropenem 500 mg/ Sodium (Chloride) 60 mls @ 100 mls/hr IV DAILY@1500 [facility] Insulin Human Lispro (Humalog Kwikpen (Bkc)) 0 unit SC ACHS [facility]; Protocol Last Admin: 04/11/20 12:18 Dose: Not Given Documented by: Melatonin (Melatonin) 3 mg PO QHS PRN PRN PRN Reason: INSOMNIA Last Admin: 04/10/20 21:02 Dose: 3 mg Documented by: Nutritional Formula (Nepro Carb Steady) 120 ml PO 4X/DAY [facility] Last Admin: 04/11/20 09:40 Dose: Not Given Documented by: Ondansetron HCl (Zofran) 4 mg IV Q8H PRN PRN PRN Reason: NAUSEA/VOMITING Oxycodone HCl (Oxyir) 5 mg PO Q6H PRN PRN PRN Reason: Pain Score 6-10/10 Last Admin: 04/10/20 19:29 Dose: 5 mg Documented by: Pantoprazole Sodium (Protonix) 20 mg PO DAILY [facility] Last Admin: 04/11/20 09:40 Dose: 20 mg Documented by: Sodium Chloride () 10 - 40 ml IV UD PRN PRN Reason: SALINE FLUSH Last Admin: 04/10/20 05:37 Dose: 20 ml Documented by: Warfarin Sodium (Coumadin (Pbkc)) 5 mg PO SuMoWeFrSa@1700 [facility] Warfarin Sodium (Jantoven) 2.5 mg PO TuTh@1700 [facility] Last Admin: 04/10/20 17:04 Dose: 2.5 mg Documented by: Medical Necessity - Tobacco Use Smoking Status: Current every day smoker Assessment/Plan All Active Problems (Last Reviewed 04/10/20 @ 05:[address] Reilly Lopez MD) Acute febrile illness (Acute) ESRD for HD today only 3 hours per patient request. Fever with mild leukocytosis awaiting blood cultures.Appreciate ID input abx per ID.Has TDC. HTN continue current medications. reevaluate blood pressure after UF today Anemia DOUGLAS with dialysis today 4000 u COPD and other comorbidities as per primary team.
--- NOTE | 2020-04-11 14:14 | PCM.CONS.C ---
Reason for Consult Date of Consultation: 04/11/20 Reason for Consultation: Elevated troponin History of Present Illness: The patient is a 79 year old F on dialysis intermittently, reports not feeling well for about 2 weeks after completing course of steroids. Had dialysis on 04/08 after that developed weakness, fever, pain between her shoulders, and headache. No aches, no change in taste/smell. Had some brown sputum, some dyspnea. No diarrhea. Came to ED, admitted on vanc/germaine/azithro, in covid precautions. Patient denies any chest pressure. She had shortness of breath upon admission which is now resolved. Her troponin went up to about 0.6 and is coming down. She had an echo in 2012 which revealed preserved EF and trace mitral regurgitation. Review of systems: All systems reviewed. All else is negative except that in the HPI Past Medical History Allergies/Adverse Reactions: Allergies gluten Allergy (Unknown, Verified 04/10/20 10:38) Food Allergy diltiazem HCl [From Cardizem] Allergy (Verified 03/10/20 14:03) Angioedema fluticasone furoate [From Breo Ellipta] Allergy (Verified 04/09/20 22:01) PT UNSURE OF REACTION gatifloxacin [From Tequin] Allergy (Verified 03/10/20 14:03) Unknown hydrochlorothiazide [From Maxzide] Allergy (Verified 03/10/20 14:03) Other Penicillins [PCN] Allergy (Verified 03/10/20 14:03) Hives triamterene [From Maxzide] Allergy (Verified 03/10/20 14:03) Other vilanterol [From Breo Ellipta] Allergy (Verified 04/09/20 22:01) PT UNSURE OF REACTION codeine Adverse Reaction (Verified 03/10/20 14:03) Upset Stomach Home Medications: Ambulatory Orders Medication Instructions Recorded Albuterol IH (ProAir) [Proair Hfa 2 puff INHALATION Q4H PRN PRN 12/30/14 (SP)Vent Pts] Omeprazole [Prilosec] 20 mg PO DAILY 12/30/14 amlodipine 5 mg tablet 10 mg PO DAILY 08/28/18 atenolol 25 mg tablet 12.5 mg PO DAILY 08/28/18 Simvastatin 20 mg PO DAILY 12/24/18 Tiotropium [place] [Spiriva 2 puff INHALATION DAILY 01/17/19 Respimat] Warfarin Sodium [Coumadin] 5 mg PO SUMOWEFRSA 01/17/19 mometasone-formoterol HFA 200 2 puff INHALATION BID #3 device 04/30/19 mcg-5 mcg/actuation aerosol inhaler colesevelam 625 mg tablet 1,875 mg PO BID 12/13/19 guaifenesin 1,200 mg tablet, 1,200 mg PO BID 03/10/20 extended release 12 hr Azithromycin 250 mg PO MOWEFR 04/09/20 Glimepiride 0.5 mg PO DAILY 04/09/20 Warfarin [Coumadin (PBKC)] 2.5 mg PO TUTH 04/09/20 Past Medical History (Chronic Problems): Chronic Problems (Last Reviewed 04/10/20 @ 05:[address] 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 Reilly Lopez MD) Father Diabetes Lung cancer Mother Heart disease Hypertension Smoking Status: Current every day smoker Subjectve: Due to the COVID- pandemic patient was evaluated via a telephone conversation and physical examination was not performed Objective: Vital Signs Temp Pulse Resp BP Pulse Ox 98.6 F 85 22 H 133/101 H 96 04/11/20 09:00 04/11/20 12:00 04/11/20 09:00 04/11/20 09:00 04/11/20 10:55 Oxygen Flow Rate (L/min) 2 Oxygen Delivery Method Room Air Weight: 95 lb 10.89 oz Body Mass Index (BMI) 15.5 Finger Stick Blood Glucose 149 Intake and Output for Last 24 Hours 04/09/20 04/10/20 04/11/20 23:59 23:59 23:59 Intake Total 1365 / 1685 730 / 730 Output Total 0 / 50 650 / 650 Balance 1365 / 1635 80 / 80 04/10/20 16:55: Troponin I 0.556 H 04/10/20 21:25: Urine Color Yellow, Urine Clarity Sl. Cloudy, Urine pH 6.0, Ur Specific [place] 1.015, Urine Protein 100 H, Urine Glucose (UA) Normal, Urine Ketones Negative, Urine Occult Blood 50 H, Urine Nitrite Negative, Urine Bilirubin Negative, Urine Urobilinogen Normal, Ur Leukocyte Esterase 100 H, Urine RBC 0-5 SEEN, Urine WBC 5-10 SEEN 04/11/20 03:05: WBC 11.1 H, RBC 3.10 L, Hgb 9.6 L, Hct 29.7 L, MCV 95.8, MCH 31.0, MCHC 32.3, Plt Count 134 L, MPV 10.2, Immature Gran % (Auto) 0.300, Neut % (Auto) 77.5 H, Lymph % (Auto) 12.3 L, [place] % (Auto) 6.9, Eos % (Auto) 2.8, Baso % (Auto) 0.2, Absolute Neuts (auto) 8.6 H, Nucleated RBC % 0 04/11/20 03:05: Sodium 134 L, Potassium 4.0, Chloride 98, Carbon Dioxide 31.0, Anion Gap 5, BUN 29 H, Creatinine 1.46 H, Est GFR (MDRD) Af Amer 45 L, Est GFR (MDRD) Non-Af 37 L, BUN/Creatinine Ratio 19.9, Glucose 108 H, Calcium 8.1 L, Total Bilirubin 0.50 04/11/20 03:05: PT 31.8 H, INR 3.1 Rhythm: EKG: ECHO: Stress Test: Cardiac Cath: PCI: CT Surgery: Holter monitor: EPS: PPM: CXR: Chest CT Scan: Assessment/Plan 1. Elevated troponin: This appears to be secondary to underlying febrile illness. She does not have any significant cardiac complaints at this time. It will be reasonable to do a 2D echo and stress test as an outpatient. We will sign off at this time. If we can be of any further assistance please let us know.
--- NOTE | 2020-04-11 14:46 | ECHOD_ITS ---
Reason For Study: arrhythmia Procedure This was a 2D Doppler, Color Flow transthoracic echocardiogram. The study was technically difficult. Patient had difficulty tolerating probe pressure. Exam performed portable in ICU/CCU. Left Ventricle Normal left ventricle. Left ventricular systolic function is normal. The estimated ejection fraction is 55 %. Right Ventricle Normal right ventricle. Normal systolic function. Atria The left atrium is mildly enlarged. Normal right atrium. Mitral Valve Mild (1+) mitral valve insufficiency. Tricuspid Valve Trivial tricuspid valve insufficiency. Aortic Valve Trivial aortic valve insufficiency. Pulmonic Valve Trivial-mild pulmonic valve insufficiency identified. Great Vessels Normal inferior vena cava. MMode/2D Measurements & Calculations LVIDd: 5.3 cm IVSd: 0.96 cm Ao root diam: 4.6 cm LVIDs: 4.4 cm LVPWd: 0.98 cm RVDd: 3.2 cm FS: 18.4 % LAV(MOD-bp): 68.6 ml LA A4 area: 21.5 cm2 LA dimension(2D): 4.6 cm LAV(MOD-bp) Indexed: 47.1 ml/m2 LAV(MOD-sp2): 68.8 ml LAV(MOD-sp4): 68.6 ml RA A4 area: 12.4 cm2 Time Measurements MV dec time: 0.16 sec Doppler Measurements & Calculations MV E max jose r: 67.0 cm/sec Lat Peak E' Jose R: 9.0 cm/sec Med Peak E' Jose R: 5.1 cm/sec MV A max jose r: 78.2 cm/sec E/E' lat: 7.5 E/E' med: 13.1 MV E/A: 0.86 Ao V2 max: 128.0 cm/sec LV V1 max: 100.3 cm/sec PA V2 max: 90.4 cm/sec Ao max P.6 mmHg LV V1 max P.0 mmHg Ao V2 mean: 91.2 cm/sec Ao mean P.6 mmHg Ao V2 VTI: 21.3 cm Interpretation Summary The estimated ejection fraction is 55 %. Normal left ventricle. Left ventricular systolic function is normal. Mild (1+) mitral valve insufficiency. Trivial tricuspid valve insufficiency. Trivial aortic valve insufficiency. Ordering Physician: Oumou Alaniz Referring Physician: Yudith Rosales Performed By: Rashmi Saleh, MARGO, RVT
[2020-04-11] MEDS: Epoetin Alfa epbx 10,000 UNITS/ML 4000 UNIT IV (14:50)
[2020-04-11] MEDS: Heparin 10,000 UNITS/10 ML Vial IV (16:21)
[2020-04-11] MEDS: Acetaminophen 325 MG Tablet 650 MG PO (16:22)
--- NOTE | 2020-04-11 17:09 | PCM.PN.ID ---
Patient Problems: Active and Suspected Problems (Last Reviewed 04/10/20 @ 05:[address] Reilly Lopez MD) Acute febrile illness (Acute) Subjective: Feeling a little better, but increased fatigue s/p HD. No fever, no dyspnea, some dry cough. No aches/headache. No n/v/d. - Physical Exam Vitals/I&O's: Vital Signs Temp Pulse Resp BP Pulse Ox 98.1 F 98 20 H 153/67 H 98 04/11/20 15:00 04/11/20 16:00 04/11/20 15:00 04/11/20 15:00 04/11/20 15:00 Oxygen Flow Rate (L/min) 2 Oxygen Delivery Method Room Air Weight: 43.4 kg Body Mass Index (BMI) 15.5 Finger Stick Blood Glucose 149 Intake and Output for Last 24 Hours 04/09/20 04/10/20 04/11/20 23:59 23:59 23:59 Intake Total 1365 / 1685 730 / 730 Output Total 0 / 50 650 / 650 Balance 1365 / 1635 80 / 80 General: Alert, Cooperative, No apparent distress Lungs: Rhonchi - mild Cardiovascular: Regular rate, Regular Rhythm Abdomen: Soft, Non Tender, Non-Distended Skin: No rashes Microbiology Past 72 Hours 04/10/20 21:15 Sputum, Expectorated/Coughed Gram Stain - Final 04/10/20 21:15 Sputum, Expectorated/Coughed Respiratory Culture - Preliminary Appears to be normal respiratory randall. Further studies to follow. 04/10/20 21:25 Urine, Clean Catch Streptococcus pneumoniae Antigen (M - Final 04/10/20 21:25 Urine, Clean Catch Legionella Antigen - Final 04/10/20 01:45 Mucosa - Nasopharyngeal Respiratory Panel (PCR) - Final Laboratory Results 04/10/20 16:55: Troponin I 0.556 H 04/10/20 17:03: POC Glucose 108 04/10/20 21:00: MRSA (PCR) Negative 04/10/20 21:18: POC Glucose 128 H 04/10/20 21:25: Urine Color Yellow, Urine Clarity Sl. Cloudy, Urine pH 6.0, Ur Specific [place] 1.015, Urine Protein 100 H, Urine Glucose (UA) Normal, Urine Ketones Negative, Urine Occult Blood 50 H, Urine Nitrite Negative, Urine Bilirubin Negative, Urine Urobilinogen Normal, Ur Leukocyte Esterase 100 H, Urine RBC 0-5 SEEN, Urine WBC 5-10 SEEN, Ur Squamous Epith Cells 0-5 SEEN, Ur Transition Epith Cell 0-5 SEEN, Urine Bacteria 0 SEEN, Urine Mucus 0 SEEN 04/11/20 03:05: WBC 11.1 H, RBC 3.10 L, Hgb 9.6 L, Hct 29.7 L, MCV 95.8, MCH 31.0, MCHC 32.3, RDW Std Deviation 42.1, RDW Coeff of [place]ly 12.1, Plt Count 134 L, MPV 10.2, Immature Gran % (Auto) 0.300, Neut % (Auto) 77.5 H, Lymph % (Auto) 12.3 L, [place] % (Auto) 6.9, Eos % (Auto) 2.8, Baso % (Auto) 0.2, Absolute Neuts (auto) 8.6 H, Absolute Lymphs (auto) 1.37, Nucleated RBC % 0 04/11/20 03:05: Sodium 134 L, Potassium 4.0, Chloride 98, Carbon Dioxide 31.0, Anion Gap 5, BUN 29 H, Creatinine 1.46 H, Estim Creat Clear Calc 21.81, Est GFR (MDRD) Af Amer 45 L, Est GFR (MDRD) Non-Af 37 L, BUN/Creatinine Ratio 19.9, Glucose 108 H, Calcium 8.1 L, Total Bilirubin 0.50, AST 12 L, ALT 14, Alkaline Phosphatase 62, Total Protein 5.3 L, Albumin 2.3 L, Globulin 3.0, Albumin/Globulin Ratio 0.8 L 04/11/20 03:05: PT 31.8 H, INR 3.1 04/11/20 06:45: POC Glucose 85 04/11/20 12:13: POC Glucose 99 Current Medications Acetaminophen (Tylenol) 650 mg PO Q8H PRN PRN PRN Reason: Pain Score 1-10/Temp > 100.7 F Last Admin: 04/11/20 16:22 Dose: 650 mg Documented by: Albuterol Sulfate (Ventolin Aerosols) 2.5 mg INHALATION Q2H PRN PRN PRN Reason: SOB/Wheezing Albuterol/Ipratropium (Duoneb) 3 ml INHALATION Q6H.RT [facility] Last Admin: 04/11/20 13:30 Dose: Not Given Documented by: Amlodipine Besylate (Norvasc) 10 mg PO DAILY [facility] Last Admin: 04/11/20 09:40 Dose: 10 mg Documented by: Aspirin (Aspirin, Baby) 81 mg PO DAILY@0800 [facility] Last Admin: 04/11/20 09:40 Dose: 81 mg Documented by: Atenolol (Tenormin (Beta Kera)) 12.5 mg PO DAILY [facility] Last Admin: 04/11/20 09:40 Dose: 12.5 mg Documented by: Atorvastatin Calcium (Lipitor) 10 mg PO QHS [facility] Last Admin: 04/10/20 21:04 Dose: 10 mg Documented by: Azithromycin (Zithromax) 250 mg PO MoWeFr@1000 [facility] Last Admin: 04/11/20 09:43 Dose: 250 mg Documented by: Budesonide (Pulmicort Aerosol) 0.5 mg INHALATION Q12H.RT [facility] Last Admin: 04/11/20 07:01 Dose: 0.5 mg Documented by: Colesevelam HCl (Welchol) 1,875 mg PO BID [facility] Last Admin: 04/11/20 09:39 Dose: 1,875 mg Documented by: Dextrose (D50w Syringe) 0 gm IV X1 PRN; Protocol PRN Reason: Hypoglycemia Glucagon () 1 mg IM .X1 PRN PRN Reason: Hypoglycemia Guaifenesin (Mucinex) 1,200 mg PO BID [facility] Last Admin: 04/11/20 09:39 Dose: 1,200 mg Documented by: Sodium Chloride () 250 mls @ 15 mls/hr IV .[id number] PRN PRN Reason: Saline Flush Sodium Chloride () 250 mls @ 15 mls/hr IV .[id number] PRN PRN Reason: Additional IVPB Infusion Meropenem 500 mg/ Sodium (Chloride) 60 mls @ 100 mls/hr IV DAILY@1500 [facility] Last Admin: 04/11/20 16:21 Dose: 100 mls/hr Documented by: Melatonin (Melatonin) 3 mg PO QHS PRN PRN PRN Reason: INSOMNIA Last Admin: 04/10/20 21:02 Dose: 3 mg Documented by: Nutritional Formula (Nepro Carb Steady) 120 ml PO 4X/DAY [facility] Last Admin: 04/11/20 13:17 Dose: Not Given Documented by: Ondansetron HCl (Zofran) 4 mg IV Q8H PRN PRN PRN Reason: NAUSEA/VOMITING Oxycodone HCl (Oxyir) 5 mg PO Q6H PRN PRN PRN Reason: Pain Score 6-10/10 Last Admin: 04/10/20 19:29 Dose: 5 mg Documented by: Pantoprazole Sodium (Protonix) 20 mg PO DAILY [facility] Last Admin: 04/11/20 09:40 Dose: 20 mg Documented by: Sodium Chloride () 10 - 40 ml IV UD PRN PRN Reason: SALINE FLUSH Last Admin: 04/10/20 05:37 Dose: 20 ml Documented by: Warfarin Sodium (Coumadin (Pbkc)) 5 mg PO SuMoWeFrSa@1700 [facility] Last Admin: 04/11/20 16:23 Dose: 5 mg Documented by: Warfarin Sodium (Jantoven) 2.5 mg PO TuTh@1700 [facility] Last Admin: 04/10/20 17:04 Dose: 2.5 mg Documented by: Medical Necessity - Tobacco Use Smoking Status: Current every day smoker Route of nutrition/ use of supplements: [] Nutritional Intake: [] IV Site: [] Crane Catheter: [] - Assessment/Plan Antibiotics: [] Assessment/Plan: [] Active and Suspected Problems (Last Reviewed 04/10/20 @ 05:[address] Reilly Lopez MD) Acute febrile illness (Acute) Low grade fever here. Elevated d-dimer, lymphopenia, lactic acidosis, elevated trop. COVID pcr neg. CXR relatively clear. Some sputum prior to presentation. Hives reported with PCN in the past. On dialysis via tunneled cath, no signs of inflammation at the site. Bcx neg so far. Will stop azithro. Cont meropenem, plan on 5 total day empiric course. Will order repeat covid pcr, if neg, ok to d/c isolation. will follow, d/w nursing
--- NOTE | 2020-04-11 17:14 | DIALYSIS ---
Addendum entered by Zabrina Pendleton 04/14/20 12:59: Original Note: HD x 3 hours complete. Ran on 3k bath. C/o not feeling well during the last half hour of her tx. UF of 655ml. Used Right chest wall catheter. Catheter closed with heparin per fill volume. Caps placed. Dressing intact. See tx sheet for more details. Report was given to EDUARD Blackman.
[2020-04-11] MEDS: Atorvastatin Calcium 10 MG Tablet PO (21:52)
[2020-04-11] MEDS: MELATONIN 3 MG TABLET PO (21:53)
[2020-04-11 22:05] LABS: Bedside Glucose 136 mg/dL (70-110)
[2020-04-12] VITALS (14 sets, daily range): BP systolic 117–156; BP diastolic 51–66; PULSE 87–102; RESP 15–22; TEMP 36.6–37; O2SAT 92–95
[2020-04-12] MEDS: Ipratropium/Albuterol Sulfate 3 ML AMPUL.NEB INHALATION ×4 (01:25→19:28)
[2020-04-12 05:17] LABS: Absolute Lymphocyte Count 1.11 X10^3/uL (0.83-4.51); Absolute Neutrophil Count 5.5 X10^3/uL (2.0-7.7); Basophil# 0.01 X10^3/uL; Basophil% 0.1 % (0-1); Eosinophil# 0.38 X10^3/uL; Hemoglobin 9.5 g/dL (12.0-15.0); Lymphocyte # 1.11 X10^3/ul (4.0); Lymphocyte % 14.5 % (19-41); Mean Corp Hgb Conc 31.7 g/dL (32-36); Mean Corpuscular Hgb 30.3 pg (27.0-32.0); Mean Corpuscular Volume 95.5 fL (81-99); Mean Platelet Vol. 10.3 fl (6.2-12.0); Monocyte# 0.62 X10^3/uL; Monocyte% 8.1 % (0-10); NRBC Flagged by Analyzer 0 % (0-5); Neutrophil # 5.49 X10^3/uL (2.7-7.7); Platelet Count 146 K/mm3 (150-450); RBC Distribution Width SD 41.6 fl (35.1-43.9); Red Blood Count 3.14 M/mm3 (4.2-5.4); White Blood Count 7.6 K/mm3 (4.4-11.0)
[2020-04-12 05:27] LABS: International Normalized Ratio 2.8; Prothrombin Time (Protime)PT. 29.2 SECONDS (11.7-14.9)
[2020-04-12 05:36] LABS: ALB/GLOB Ratio 0.8 RATIO (0.9-2.4); AST(SGOT) 16 U/L (15-37); Alanine Aminotransfer ALT/SGPT 17 U/L (13-56); Albumin, Serum 2.4 g/dL (3.2-5.0); Alkaline Phosphatase 64 U/L (45-117); Anion Gap 9 (5-15); BUN 11 mg/dL (7-18); BUN/Creat Ratio 11.5 RATIO (10-20); Calcium,Total 8.3 mg/dL (8.5-10.1); Chloride 100 mmol/L (98-107); Creatinine, Serum 0.96 mg/dL (0.55-1.02); EST Glomerular Filtration Rate 60 mL/min (>60); Est Glom Filt Rate - Afr Amer 72 mL/min (>60); Estimated Creatinine Clearance 33.09 ml/min; Globulin 3.2 g/dL (2.2-4.2); Glucose 99 mg/dL (74-106); Potassium 3.9 mmol/L (3.5-5.1); Protein, Total 5.6 g/dL (6.4-8.2); Sodium Level 136 mmol/L (136-145)
[2020-04-12] MEDS: Budesonide Respules 0.5 MG/2 ML AMPUL.NEB. INHALATION ×2 (07:24→19:27)
[2020-04-12] MEDS: Pantoprazole Sodium 20 MG Tablet PO (08:26)
[2020-04-12] MEDS: Aspirin 81 MG TAB.CHEW PO (08:27)
[2020-04-12] MEDS: guaiFENesin 1,200 MG Tablet 1200 MG PO ×2 (08:27→22:08)
[2020-04-12] MEDS: Atenolol 25 MG Tablet 12.5 MG PO (08:28)
[2020-04-12] MEDS: amLODIPine 10 MG Tablet PO (08:28)
[2020-04-12] MEDS: Acetaminophen 325 MG Tablet 650 MG PO ×2 (08:36→19:18)
--- NOTE | 2020-04-12 08:53 | PCM.PN.REN ---
Patient Problems: Active and Suspected Problems (Last Reviewed 04/10/20 @ 05:[address] Reilly Lopez MD) Acute febrile illness (Acute) Subjective: Following for ESRD. Pt denies CP or SOB currently. Has nausea and anorexia. No vomiting. No diarrhea. - Physical Exam Vitals/I&O's: Vital Signs Temp Pulse Resp BP Pulse Ox 98.6 F 96 20 H 156/51 H 93 04/12/20 06:21 04/12/20 07:26 04/12/20 07:26 04/12/20 06:21 04/12/20 07:26 Oxygen Flow Rate (L/min) 2 Oxygen Delivery Method Nasal Cannula Weight: 42.7 kg Body Mass Index (BMI) 15.5 Finger Stick Blood Glucose 149 Intake and Output for Last 24 Hours 04/10/20 04/11/20 04/12/20 23:59 23:59 23:59 Intake Total 1365 / 1685 990 / 1090 150 / 150 Output Total 0 / 50 650 / 800 300 / 300 Balance 1365 / 1635 340 / 290 -150 / -150 General: Alert, Oriented x3, Cooperative HEENT: EOMI Oral: Moist Mucosa Neck: Supple Lungs: Diminished - at bases L>R Cardiovascular: Normal S1, Normal S2, No murmurs Abdomen: Soft, Non Tender Extremities: No edema Microbiology Past 72 Hours 04/10/20 21:15 Sputum, Expectorated/Coughed Gram Stain - Final 04/10/20 21:15 Sputum, Expectorated/Coughed Respiratory Culture - Preliminary Appears to be normal respiratory randall. Further studies to follow. 04/10/20 21:25 Urine, Clean Catch Streptococcus pneumoniae Antigen (M - Final 04/10/20 21:25 Urine, Clean Catch Legionella Antigen - Final 04/10/20 01:45 Mucosa - Nasopharyngeal Respiratory Panel (PCR) - Final Laboratory Results 04/11/20 12:13: POC Glucose 99 04/11/20 17:08: COVID-19 (JANELL) Not Detected 04/11/20 21:47: POC Glucose 136 H 04/12/20 05:00: WBC 7.6, RBC 3.14 L, Hgb 9.5 L, Hct 30.0 L, MCV 95.5, MCH 30.3, MCHC 31.7 L, RDW Std Deviation 41.6, RDW Coeff of Oly 12.0, Plt Count 146 L, MPV 10.3, Immature Gran % (Auto) 0.300, Neut % (Auto) 72.0 H, Lymph % (Auto) 14.5 L, [place] % (Auto) 8.1, Eos % (Auto) 5.0, Baso % (Auto) 0.1, Absolute Neuts (auto) 5.5, Absolute Lymphs (auto) 1.11, Nucleated RBC % 0 04/12/20 05:00: Sodium 136, Potassium 3.9, Chloride 100, Carbon Dioxide 27.0, Anion Gap 9, BUN 11, Creatinine 0.96, Estim Creat Clear Calc 33.09, Est GFR (MDRD) Af Amer 72, Est GFR (MDRD) Non-Af 60, BUN/Creatinine Ratio 11.5, Glucose 99, Calcium 8.3 L, Total Bilirubin 0.50, AST 16, ALT 17, Alkaline Phosphatase 64, Total Protein 5.6 L, Albumin 2.4 L, Globulin 3.2, Albumin/Globulin Ratio 0.8 L 04/12/20 05:00: PT 29.2 H, INR 2.8 Current Medications Acetaminophen (Tylenol) 650 mg PO Q8H PRN PRN PRN Reason: Pain Score 1-10/Temp > 100.7 F Last Admin: 04/12/20 08:36 Dose: 650 mg Documented by: Albuterol Sulfate (Ventolin Aerosols) 2.5 mg INHALATION Q2H PRN PRN PRN Reason: SOB/Wheezing Albuterol/Ipratropium (Duoneb) 3 ml INHALATION Q6H.RT [facility] Last Admin: 04/12/20 07:24 Dose: 3 ml Documented by: Amlodipine Besylate (Norvasc) 10 mg PO DAILY [facility] Last Admin: 04/12/20 08:28 Dose: 10 mg Documented by: Aspirin (Aspirin, Baby) 81 mg PO DAILY@0800 [facility] Last Admin: 04/12/20 08:27 Dose: 81 mg Documented by: Atenolol (Tenormin (Beta Kera)) 12.5 mg PO DAILY [facility] Last Admin: 04/12/20 08:28 Dose: 12.5 mg Documented by: Atorvastatin Calcium (Lipitor) 10 mg PO QHS [facility] Last Admin: 04/11/20 21:52 Dose: 10 mg Documented by: Budesonide (Pulmicort Aerosol) 0.5 mg INHALATION Q12H.RT [facility] Last Admin: 04/12/20 07:24 Dose: 0.5 mg Documented by: Colesevelam HCl (Welchol) 1,875 mg PO BID [facility] Last Admin: 04/12/20 08:27 Dose: 1,875 mg Documented by: Dextrose (D50w Syringe) 0 gm IV X1 PRN; Protocol PRN Reason: Hypoglycemia Glucagon () 1 mg IM .X1 PRN PRN Reason: Hypoglycemia Guaifenesin (Mucinex) 1,200 mg PO BID [facility] Last Admin: 04/12/20 08:27 Dose: 1,200 mg Documented by: Sodium Chloride () 250 mls @ 15 mls/hr IV .[id number] PRN PRN Reason: Saline Flush Sodium Chloride () 250 mls @ 15 mls/hr IV .[id number] PRN PRN Reason: Additional IVPB Infusion Meropenem 500 mg/ Sodium (Chloride) 60 mls @ 100 mls/hr IV DAILY@1500 [facility] Last Infusion: 04/11/20 17:10 Dose: Infused Documented by: Melatonin (Melatonin) 3 mg PO QHS PRN PRN PRN Reason: INSOMNIA Last Admin: 04/11/20 21:53 Dose: 3 mg Documented by: Nutritional Formula (Nepro Carb Steady) 120 ml PO 4X/DAY [facility] Last Admin: 04/12/20 08:29 Dose: Not Given Documented by: Ondansetron HCl (Zofran) 4 mg IV Q8H PRN PRN PRN Reason: NAUSEA/VOMITING Oxycodone HCl (Oxyir) 5 mg PO Q6H PRN PRN PRN Reason: Pain Score 6-10/10 Last Admin: 04/12/20 08:36 Dose: 5 mg Documented by: Pantoprazole Sodium (Protonix) 20 mg PO DAILY [facility] Last Admin: 04/12/20 08:26 Dose: 20 mg Documented by: Sodium Chloride () 10 - 40 ml IV UD PRN PRN Reason: SALINE FLUSH Last Admin: 04/10/20 05:37 Dose: 20 ml Documented by: Warfarin Sodium (Coumadin (Pbkc)) 5 mg PO SuMoWeFrSa@1700 [facility] Last Admin: 04/11/20 16:23 Dose: 5 mg Documented by: Warfarin Sodium (Jantoven) 2.5 mg PO TuTh@1700 [facility] Last Admin: 04/10/20 17:04 Dose: 2.5 mg Documented by: Medical Necessity - Tobacco Use Smoking Status: Current every day smoker Assessment/Plan All Active Problems (Last Reviewed 04/10/20 @ 05:[address] Reilly Lopez MD) Acute febrile illness (Acute) 1. ESRD. The pt normally dialyzes on Tuesdays and Saturdays schedule. She was dialyzed yesterday. Volume, acid/base, and electrolytes are acceptable. No need for dialysis today. 2. Fever with mild leukocytosis. No fever today. Leukocyte has also decreased. Awaiting blood cultures. Abx per ID. Has TDC. 3. HTN. continue current medications. 4. Anemia DOUGLAS with dialysis. Monitor Hgb. 5. COPD and other comorbidities. As per primary team.
--- NOTE | 2020-04-12 11:41 | PN_ITS ---
Patient Problems: Active and Suspected Problems (Last Reviewed 04/10/20 @ 05:[address] Reilly Lopez MD) Acute febrile illness (Acute) Subjective: Patient with no acute events overnight per self or per nursing report. Patient clinically improving with no further low-grade temperatures noted. She notes she continues to breathe better still having only mild cough. She notes she has poor appetite but is attempting to eat a small segment of each meal. Patient has now been making some urine since dialysis day prior. Discussed plan of care which had been reviewed with infectious disease including await respiratory culture as gram-negative annemarie on sputum culture and planned continuation 5 days of meropenem with also pending blood culture drawn day prior from dialysis access. Patient denies fevers, chills, nausea, emesis, abdominal pain, chest pain or recurrent or worsened dyspnea. Objective: Physical Examination: General: awake, alert, oriented x 3 and cooperative, seated upright in the ICU bedside chair, eating some breakfast. Skin: normal color, turgor, no icterus, cyanosis except occasional staged ecchymoses. HEENT: AT/NC, EOMI, PERRLA, MMM. Lungs: Diminished BS, > bases, moderate decrease BL bases, no rales, ronchi or wheezing. Heart: Regular rate and rhythm; no gallop, rub audible. Abdomen: soft, cachetic habitus, NTTP, ND, normal BS. Extremities: no cyanosis, clubbing, or edema. Neurological: patient awake, alert, oriented x 3; cognitive function appears baseline intact; pupils equally reactive to light and accomodation; cranial nerves II-XII grossly normal, moving all 4 extremities, no focal deficits, strength moderately to severely decreased secondary to acute presentation. Psychiatric: affect appears still fatigued but states she is improving, no acute evidence of depressive or anxiety feelings. Vitals/I&O's: Vital Signs Temp Pulse Resp BP Pulse Ox 98.6 F 101 H 20 H 156/51 H 93 04/12/20 06:21 04/12/20 11:12 04/12/20 07:26 04/12/20 06:21 04/12/20 07:26 Oxygen Flow Rate (L/min) 2 Oxygen Delivery Method Nasal Cannula Weight: 94 lb 2.198 oz Body Mass Index (BMI) 15.5 Finger Stick Blood Glucose 149 Intake and Output for Last 24 Hours 04/10/20 04/11/20 04/12/20 23:59 23:59 23:59 Intake Total 1365 / 1685 990 / 1090 150 / 150 Output Total 0 / 50 650 / 800 300 / 300 Balance 1365 / 1635 340 / 290 -150 / -150 Microbiology Past 72 Hours 04/10/20 21:25 Urine, Clean Catch Urine Culture - Preliminary Culture exhibits no growth. 04/10/20 21:15 Sputum, Expectorated/Coughed Gram Stain - Final 04/10/20 21:15 Sputum, Expectorated/Coughed Respiratory Culture - Preliminary GNR lactose fiscal officer 04/09/20 23:00 Blood Culture (Wb) - Right Hand Blood Culture - Preliminary No growth in 48 hours. 04/09/20 22:12 Blood Culture (Wb) - Anticubital Left Blood Culture - Preliminary No growth in 48 hours. 04/10/20 21:25 Urine, Clean Catch Streptococcus pneumoniae Antigen (M - Final 04/10/20 21:25 Urine, Clean Catch Legionella Antigen - Final 04/10/20 01:45 Mucosa - Nasopharyngeal Respiratory Panel (PCR) - Final Laboratory Results 04/11/20 12:13: POC Glucose 99 04/11/20 17:08: COVID-19 (JANELL) Not Detected 04/11/20 21:47: POC Glucose 136 H 04/12/20 05:00: WBC 7.6, RBC 3.14 L, Hgb 9.5 L, Hct 30.0 L, MCV 95.5, MCH 30.3, MCHC 31.7 L, RDW Std Deviation 41.6, RDW Coeff of Oly 12.0, Plt Count 146 L, MPV 10.3, Immature Gran % (Auto) 0.300, Neut % (Auto) 72.0 H, Lymph % (Auto) 14.5 L, [place] % (Auto) 8.1, Eos % (Auto) 5.0, Baso % (Auto) 0.1, Absolute Neuts (auto) 5.5, Absolute Lymphs (auto) 1.11, Nucleated RBC % 0 04/12/20 05:00: Sodium 136, Potassium 3.9, Chloride 100, Carbon Dioxide 27.0, Anion Gap 9, BUN 11, Creatinine 0.96, Estim Creat Clear Calc 33.09, Est GFR (MDRD) Af Amer 72, Est GFR (MDRD) Non-Af 60, BUN/Creatinine Ratio 11.5, Glucose 99, Calcium 8.3 L, Total Bilirubin 0.50, AST 16, ALT 17, Alkaline Phosphatase 64, Total Protein 5.6 L, Albumin 2.4 L, Globulin 3.2, Albumin/Globulin Ratio 0.8 L 04/12/20 05:00: PT 29.2 H, INR 2.8 Current Medications Acetaminophen (Tylenol) 650 mg PO Q8H PRN PRN PRN Reason: Pain Score 1-10/Temp > 100.7 F Last Admin: 04/12/20 08:36 Dose: 650 mg Documented by: Albuterol Sulfate (Ventolin Aerosols) 2.5 mg INHALATION Q2H PRN PRN PRN Reason: SOB/Wheezing Albuterol/Ipratropium (Duoneb) 3 ml INHALATION Q6H.RT [facility] Last Admin: 04/12/20 07:24 Dose: 3 ml Documented by: Amlodipine Besylate (Norvasc) 10 mg PO DAILY [facility] Last Admin: 04/12/20 08:28 Dose: 10 mg Documented by: Aspirin (Aspirin, Baby) 81 mg PO DAILY@0800 [facility] Last Admin: 04/12/20 08:27 Dose: 81 mg Documented by: Atenolol (Tenormin (Beta Kera)) 12.5 mg PO DAILY [facility] Last Admin: 04/12/20 08:28 Dose: 12.5 mg Documented by: Atorvastatin Calcium (Lipitor) 10 mg PO QHS [facility] Last Admin: 04/11/20 21:52 Dose: 10 mg Documented by: Budesonide (Pulmicort Aerosol) 0.5 mg INHALATION Q12H.RT [facility] Last Admin: 04/12/20 07:24 Dose: 0.5 mg Documented by: Colesevelam HCl (Welchol) 1,875 mg PO BID [facility] Last Admin: 04/12/20 08:27 Dose: 1,875 mg Documented by: Dextrose (D50w Syringe) 0 gm IV X1 PRN; Protocol PRN Reason: Hypoglycemia Glucagon () 1 mg IM .X1 PRN PRN Reason: Hypoglycemia Guaifenesin (Mucinex) 1,200 mg PO BID [facility] Last Admin: 04/12/20 08:27 Dose: 1,200 mg Documented by: Sodium Chloride () 250 mls @ 15 mls/hr IV .[id number] PRN PRN Reason: Saline Flush Sodium Chloride () 250 mls @ 15 mls/hr IV .[id number] PRN PRN Reason: Additional IVPB Infusion Meropenem 500 mg/ Sodium (Chloride) 60 mls @ 100 mls/hr IV DAILY@1500 [facility] Last Infusion: 04/11/20 17:10 Dose: Infused Documented by: Melatonin (Melatonin) 3 mg PO QHS PRN PRN PRN Reason: INSOMNIA Last Admin: 04/11/20 21:53 Dose: 3 mg Documented by: Nutritional Formula (Nepro Carb Steady) 120 ml PO 4X/DAY [facility] Last Admin: 04/12/20 08:29 Dose: Not Given Documented by: Ondansetron HCl (Zofran) 4 mg IV Q8H PRN PRN PRN Reason: NAUSEA/VOMITING Oxycodone HCl (Oxyir) 5 mg PO Q6H PRN PRN PRN Reason: Pain Score 6-10/10 Last Admin: 04/12/20 08:36 Dose: 5 mg Documented by: Pantoprazole Sodium (Protonix) 20 mg PO DAILY [facility] Last Admin: 04/12/20 08:26 Dose: 20 mg Documented by: Sodium Chloride () 10 - 40 ml IV UD PRN PRN Reason: SALINE FLUSH Last Admin: 04/10/20 05:37 Dose: 20 ml Documented by: Warfarin Sodium (Coumadin (Pbkc)) 5 mg PO SuMoWeFrSa@1700 [facility] Last Admin: 04/11/20 16:23 Dose: 5 mg Documented by: Warfarin Sodium (Jantoven) 2.5 mg PO TuTh@1700 [facility] Last Admin: 04/10/20 17:04 Dose: 2.5 mg Documented by: STROKE Vital Signs/Narrative: Vital Signs Pulse 04/12/20 11:12 101 H 04/12/20 07:50 102 H Medical Necessity - Tobacco Use Smoking Status: Current every day smoker Assessment/Plan All Active Problems (Last Reviewed 04/10/20 @ 05:[address] Reilly Lopez MD) Acute febrile illness (Acute) The patient is a 79 y/o F w/ PMHx: ESRD on HD (Following w/ Dr. Hayes, recent restart HD), Severe protein calorie malnutrition, Chronic COPD, Hx Lung CA, HTN, HLD, Celiac disease, Hx DVT, GERD, Diabetes mellitus type II, Hx DVTs on coumadin who presents to the [facility] [place] [facility] on 04/09/20 with history of onset fever at home T 100 with increased fatigue and mildly productive cough with no recent sore throat, nausea, emesis, abdominal pain, alteration to sense of taste or smell or diarrhea. 1. SIRS with lactic acidosis of unclear etiology, Possible COVID: ED presentation with CBC with WBC 13.2, hemoglobin 11.5, platelet 168 with left shift with concurrent lymphopenia, initial INR 1.8, CMP with sodium 135, BUN/creatinine 29/2.50, glucose 272, lactic acid 2.4, unremarkable hepatic profile, troponin 0 0.017, Coronavirus testing negative, respiratory panel unremarkable, blood culture x2 obtained in the ED but unclear if 1 was via the dialysis port, chest x-ray with no acute cardiopulmonary findings, EKG with sinus tachycardia with no acute evidence of ischemia. Patient admitted to medical surgical status in the ICU given COVID pending upon presentation however resulted negative as noted, continued judicious hydration with repeat lactic 1.0, maintained on meropenem and vancomycin, continued Coumadin INR trending, negative urine antigens, pending sputum culture however preliminary notes normal respiratory randall appearance, blood culture x2 pending per ED with no growth thus far, procalcitonin 0.29, LDH 170, ferritin 738, CRP 7.84, d-dimer 2.31 with duplex ultrasound obtained given subtherapeutic INR with noted Bilateral clot in the left lower extremity soleus vein, additional dose of Coumadin administered with analysis therapeutic level, planned blood culture x1 via HD access on 04/11/2020, pending. Infectious disease consulted and following with de- escalation off both vancomycin and azithromycin, continued on meropenem with planned 5-day course which would be completed on 04/14/2020 and also ID recommendation to await speciation and sensitivity of sputum culture as noted gram-negative annemarie. Repeat COVID testing negative therefore per ID allowance will de-escalate off precautions. PT, OT consulted for discharge planning. 2. Elevated cardiac enzymes w/ NSTEMI secondary to Demand ischemia secondary to acute presentation #1: Admission troponin 0.017, denied any chest discomfort, as noted admitted to the ICU and maintained on telemetry monitoring with no events have a repeat cardiac trending with increased levels 0.455->0.653->0.556, repeat EKG without acute evidence of ischemia, maintained on asa therapy, magnesium level obtained and noted to be 1.3 with supplementation administered. Echocardiogram requested. Cardiology consulted and planned outpatient stress testing once clinically improved and appropriate. 3. Acute LLE Soleus Vein Clot w/ Hx DVTs: Given subtherapeutic INR upon presentation and possible COVID, d-dimer obtained and was elevated, duplex ultrasound obtained given significant underlying renal disease with avoidance of CTPA and noted clots, extra dose Coumadin administered and now therapeutic INR, continue to trend. 4. ESRD: Per discussion with Dr. Hayes plumbing service technician patient has vacillated between temporary dialysis and and then has gone several months in between without but recently restarted. Admission BUN/Cr 29/2.50 with repeat 04/12/20 BUN/Cr 11/0.96, status post dialysis 04/11/2020, blood culture x1 drawn through dialysis access. 5. Hypertension: Continue home regimen including amlodipine, atenolol hold parameters as needed, PRN hydralazine. 6. Hyperlipidemia: Continue home statin regimen. 7. Chronic COPD: Will maintain on oxygen with wean as tolerated to room air, continue ATC duonebs, PRN albuterol, HOB, IS parameters. 8. Diabetes mellitus type II: Hold oral home regimen, ADA diet, accu checks w/ ISS. 9. Severe protein calorie malnutrition: Evidenced per habitus, reduced BMI of 15, obvious muscle and fat loss, nutrition consulted for recommendations. 10. AOCD: Hemoglobin 11.5, repeat 10.1->04/12/20 Hgb 9.5, continue to trend, stable. 11. GERD: Maintain on PPI. 12. DVT Prophylaxis: SCDs, coumadin w/ INR trending, 04/12/2020 INR 2.8. 13. CODE STATUS: Full code. Inpatient E&M: 32493 Subs Hosp L2
[2020-04-12] MEDS: MELATONIN 3 MG TABLET PO (22:07)
[2020-04-12] MEDS: Atorvastatin Calcium 10 MG Tablet PO (22:08)
[2020-04-12] MEDS: Nepro Liquid 120 ML LIQUID PO (22:24)
[2020-04-13] VITALS (14 sets, daily range): BP systolic 107–139; BP diastolic 61–76; PULSE 87–99; RESP 16–21; TEMP 36.8–36.9; O2SAT 93–96
[2020-04-13] MEDS: 0.9% Saline Lock 10 ML Syringe IV ×2 (04:43→15:43)
[2020-04-13 06:03] LABS: Absolute Lymphocyte Count 1.04 X10^3/uL (0.83-4.51); Absolute Neutrophil Count 3.9 X10^3/uL (2.0-7.7); Basophil# 0.02 X10^3/uL; Basophil% 0.3 % (0-1); Eosinophil# 0.43 X10^3/uL; Eosinophils% 7.3 % (0-5); Hematocrit 31.5 % (37-47); Hemoglobin 9.8 g/dL (12.0-15.0); Lymphocyte # 1.04 X10^3/ul (4.0); Lymphocyte % 17.6 % (19-41); Mean Corp Hgb Conc 31.1 g/dL (32-36); Mean Corpuscular Volume 96.3 fL (81-99); Mean Platelet Vol. 10.1 fl (6.2-12.0); Monocyte# 0.55 X10^3/uL; Monocyte% 9.3 % (0-10); NRBC Flagged by Analyzer 0 % (0-5); Neutrophil # 3.85 X10^3/uL (2.7-7.7); Neutrophil % 65.3 % (47-70); Platelet Count 158 K/mm3 (150-450); RBC Distribution Width CV 11.8 % (11.6-14.6); RBC Distribution Width SD 41.1 fl (35.1-43.9); Red Blood Count 3.27 M/mm3 (4.2-5.4); White Blood Count 5.9 K/mm3 (4.4-11.0)
[2020-04-13 06:31] LABS: Prothrombin Time (Protime)PT. 30.9 SECONDS (11.7-14.9)
[2020-04-13 06:59] LABS: ALB/GLOB Ratio 0.8 RATIO (0.9-2.4); AST(SGOT) 12 U/L (15-37); Alanine Aminotransfer ALT/SGPT 17 U/L (13-56); Albumin, Serum 2.4 g/dL (3.2-5.0); Alkaline Phosphatase 60 U/L (45-117); Anion Gap 8 (5-15); BUN 22 mg/dL (7-18); BUN/Creat Ratio 19.5 RATIO (10-20); Calcium,Total 8.4 mg/dL (8.5-10.1); Chloride 104 mmol/L (98-107); Creatinine, Serum 1.13 mg/dL (0.55-1.02); EST Glomerular Filtration Rate 49 mL/min (>60); Est Glom Filt Rate - Afr Amer 60 mL/min (>60); Estimated Creatinine Clearance 27.72 ml/min; Globulin 3.2 g/dL (2.2-4.2); Glucose 130 mg/dL (74-106); Potassium 3.9 mmol/L (3.5-5.1); Protein, Total 5.6 g/dL (6.4-8.2); Sodium Level 137 mmol/L (136-145)
[2020-04-13] MEDS: Budesonide Respules 0.5 MG/2 ML AMPUL.NEB. INHALATION ×2 (06:59→20:37)
[2020-04-13] MEDS: Ipratropium/Albuterol Sulfate 3 ML AMPUL.NEB INHALATION ×3 (06:59→20:37)
--- NOTE | 2020-04-13 07:14 | PN_ITS ---
Patient Problems: Active and Suspected Problems (Last Reviewed 04/10/20 @ 05:[address] Reilly Lopez MD) Acute febrile illness (Acute) Subjective: The patient is a 79 y/o F w/ PMHx: ESRD on HD (Following w/ Dr. Hayes, recent restart HD), Severe protein calorie malnutrition, Chronic COPD, Hx Lung CA, HTN, HLD, Celiac disease, Hx DVT, GERD, Diabetes mellitus type II, Hx DVTs on coumadin who presents to the [facility] ED on 04/09/20 with history of onset fever at home T 100 with increased fatigue and mildly productive cough with no recent sore throat, nausea, emesis, abdominal pain, alteration to sense of taste or smell or diarrhea. ED presentation with CBC with WBC 13.2, hemoglobin 11.5, platelet 168 with left shift with concurrent lymphopenia, initial INR 1.8, CMP with sodium 135, BUN/creatinine 29/2.50, glucose 272, lactic acid 2.4, unremarkable hepatic profile, troponin 0 0.017, Coronavirus testing negative, respiratory panel unremarkable, blood culture x2 obtained in the ED but unclear if 1 was via the dialysis port, chest x-ray with no acute cardiopulmonary findings, EKG with sinus tachycardia with no acute evidence of ischemia. Patient admitted to medical surgical status in the ICU given COVID pending upon presentation however resulted negative as noted, continued judicious hydration with repeat lactic 1.0, maintained on meropenem and vancomycin, continued Coumadin INR trending, negative urine antigens, pending sputum culture however preliminary notes normal respiratory randall appearance, blood culture x2 pending per ED with no growth thus far, procalcitonin 0.29, LDH 170, ferritin 738, CRP 7.84, d-dimer 2.31 with duplex ultrasound obtained given subtherapeutic INR with noted Bilateral clot in the left lower extremity soleus vein, additional dose of Coumadin administered with analysis therapeutic level, planned blood culture x1 via HD access on 04/11/2020, pending. Repeat COVID testing negative therefore per ID allowance will de-escalate off precautions. Infectious disease consulted and following with de-escalation off both vancomycin and azithromycin, continued on meropenem with planned 5-day course which would be completed on 04/14/2020 and also ID recommendation to await speciation and sensitivity of sputum culture as noted gram-negative annemarie. HD access blood culture, sputum culture should result over the next 12 to 24 hours and plan to last dose of meropenem 04/14/2020 a.m. therefore following dialysis in the morning and completion of meropenem and less cultures concerning would plan discharge to home. Admission troponin 0.017, denied any chest discomfort, as noted admitted to the ICU and maintained on telemetry monitoring with no events have a repeat cardiac trending with increase d levels 0.455->0.653->0.556, repeat EKG without acute evidence of ischemia, maintained on asa therapy, magnesium level obtained and noted to be 1.3 with supplementation administered. Echocardiogram with EF 55%, normal LV, normal LV systolic function, mild MVI, trivial TBI, trivial VIVIAN. Cardiology consulted and planned outpatient stress testing. Patient will need follow-up visit at discharge. Patient with no acute events overnight per self and per nursing report. Discussed plan of care with patient which included awaiting sputum culture and completion of meropenem per infectious disease recommendation with plan to early dialysis on Tuesday per discussions with patient's nephrology team, completion of meropenem last dosing with discharge. Patient notes she has a vein mapping set up for Tuesday and will attempt to have this later in the afternoon so she may be discharged and go to this. Patient denied having any further dyspnea, minimal cough, more interactive and feeling improved. Patient denies fevers, chills, nausea, emesis, abdominal pain, chest pain or dyspnea. Objective: Physical Examination: General: awake, alert, oriented x 3 and cooperative, seated upright in the MS bed, no acute distress, well-appearing. Skin: normal color, turgor, no icterus, cyanosis except occasional staged ecchymoses. HEENT: AT/NC, EOMI, PERRLA, MMM. Lungs: Diminished BS, > bases, moderate decrease BL bases, no rales, ronchi or wheezing. Heart: Regular rate and rhythm; no gallop, rub audible. Abdomen: soft, cachetic habitus, NTTP, ND, normal BS. Extremities: no cyanosis, clubbing, or edema. Neurological: patient awake, alert, oriented x 3; cognitive function appears baseline intact; pupils equally reactive to light and accomodation; cranial nerves II-XII grossly normal, moving all 4 extremities, no focal deficits, strength improved, mildly to moderately decreased. Psychiatric: affect appears improved, no acute evidence of depressive or anxiety feelings. Vitals/I&O's: Vital Signs Temp Pulse Resp BP Pulse Ox 98.3 F 92 18 139/76 H 94 04/13/20 04:20 04/13/20 04:37 04/13/20 04:30 04/13/20 04:20 04/13/20 04:30 Oxygen Flow Rate (L/min) 2 Oxygen Delivery Method Room Air Weight: 94 lb 5.725 oz Body Mass Index (BMI) 15.5 Finger Stick Blood Glucose 149 Intake and Output for Last 24 Hours 04/11/20 04/12/20 04/13/20 23:59 23:59 23:59 Intake Total 990 / 1090 310 / 560 300 / 300 Output Total 650 / 800 300 / 300 Balance 340 / 290 10 / 260 300 / 300 Microbiology Past 72 Hours 04/10/20 21:25 Urine, Clean Catch Urine Culture - Preliminary Culture exhibits no growth. 04/10/20 21:15 Sputum, Expectorated/Coughed Gram Stain - Final 04/10/20 21:15 Sputum, Expectorated/Coughed Respiratory Culture - Preliminary GNR lactose director of people 04/09/20 23:00 Blood Culture (Wb) - Right Hand Blood Culture - Preliminary No growth in 48 hours. 04/09/20 22:12 Blood Culture (Wb) - Anticubital Left Blood Culture - Preliminary No growth in 48 hours. 04/10/20 21:25 Urine, Clean Catch Streptococcus pneumoniae Antigen (M - Final 04/10/20 21:25 Urine, Clean Catch Legionella Antigen - Final 04/10/20 01:45 Mucosa - Nasopharyngeal Respiratory Panel (PCR) - Final Laboratory Results 04/13/20 05:36: WBC 5.9, RBC 3.27 L, Hgb 9.8 L, Hct 31.5 L, MCV 96.3, MCH 30.0, MCHC 31.1 L, RDW Std Deviation 41.1, RDW Coeff of Oly 11.8, Plt Count 158, MPV 10.1, Immature Gran % (Auto) 0.200, Neut % (Auto) 65.3, Lymph % (Auto) 17.6 L, [place] % (Auto) 9.3, Eos % (Auto) 7.3 H, Baso % (Auto) 0.3, Absolute Neuts (auto) 3.9, Absolute Lymphs (auto) 1.04, Nucleated RBC % 0 04/13/20 05:36: Sodium 137, Potassium 3.9, Chloride 104, Carbon Dioxide 25.0, Anion Gap 8, BUN 22 H, Creatinine 1.13 H, Estim Creat Clear Calc 27.72, Est GFR (MDRD) Af Amer 60, Est GFR (MDRD) Non-Af 49 L, BUN/Creatinine Ratio 19.5, Gl ucose 130 H, Calcium 8.4 L, Total Bilirubin 0.50, AST 12 L, ALT 17, Alkaline Phosphatase 60, Total Protein 5.6 L, Albumin 2.4 L, Globulin 3.2, Albumin/Globulin Ratio 0.8 L 04/13/20 05:36: PT 30.9 H, INR 3.0 Current Medications Acetaminophen (Tylenol) 650 mg PO Q8H PRN PRN PRN Reason: Pain Score 1-10/Temp > 100.7 F Last Admin: 04/12/20 19:18 Dose: 650 mg Documented by: Albuterol Sulfate (Ventolin Aerosols) 2.5 mg INHALATION Q2H PRN PRN PRN Reason: SOB/Wheezing Albuterol/Ipratropium (Duoneb) 3 ml INHALATION Q6H.RT [facility] Last Admin: 04/13/20 06:59 Dose: 3 ml Documented by: Amlodipine Besylate (Norvasc) 10 mg PO DAILY [facility] Last Admin: 04/12/20 08:28 Dose: 10 mg Documented by: Aspirin (Aspirin, Baby) 81 mg PO DAILY@0800 [facility] Last Admin: 04/12/20 08:27 Dose: 81 mg Documented by: Atenolol (Tenormin (Beta Kera)) 12.5 mg PO DAILY [facility] Last Admin: 04/12/20 08:28 Dose: 12.5 mg Documented by: Atorvastatin Calcium (Lipitor) 10 mg PO QHS [facility] Last Admin: 04/12/20 22:08 Dose: 10 mg Documented by: Budesonide (Pulmicort Aerosol) 0.5 mg INHALATION Q12H.RT [facility] Last Admin: 04/13/20 06:59 Dose: 0.5 mg Documented by: Colesevelam HCl (Welchol) 1,875 mg PO BID [facility] Last Admin: 04/12/20 22:09 Dose: 1,875 mg Documented by: Dextrose (D50w Syringe) 0 gm IV X1 PRN; Protocol PRN Reason: Hypoglycemia Glucagon () 1 mg IM .X1 PRN PRN Reason: Hypoglycemia Guaifenesin (Mucinex) 1,200 mg PO BID [facility] Last Admin: 04/12/20 22:08 Dose: 1,200 mg Documented by: Sodium Chloride () 250 mls @ 15 mls/hr IV .[id number] PRN PRN Reason: Saline Flush Sodium Chloride () 250 mls @ 15 mls/hr IV .[id number] PRN PRN Reason: Additional IVPB Infusion Meropenem 500 mg/ Sodium (Chloride) 60 mls @ 100 mls/hr IV DAILY@1500 [facility] Last Infusion: 04/12/20 14:59 Dose: Infused Documented by: Melatonin (Melatonin) 3 mg PO QHS PRN PRN PRN Reason: INSOMNIA Last Admin: 04/12/20 22:07 Dose: 3 mg Documented by: Nutritional Formula (Nepro Carb Steady) 120 ml PO 4X/DAY [facility] Last Admin: 04/12/20 22:24 Dose: 120 ml Documented by: Ondansetron HCl (Zofran) 4 mg IV Q8H PRN PRN PRN Reason: NAUSEA/VOMITING Oxycodone HCl (Oxyir) 5 mg PO Q6H PRN PRN PRN Reason: Pain Score 6-10/10 Last Admin: 04/10/20 19:29 Dose: 5 mg Documented by: Pantoprazole Sodium (Protonix) 20 mg PO DAILY [facility] Last Admin: 04/12/20 08:26 Dose: 20 mg Documented by: Sodium Chloride () 10 - 40 ml IV UD PRN PRN Reason: SALINE FLUSH Last Admin: 04/13/20 04:43 Dose: 10 ml Documented by: Warfarin Sodium (Coumadin (Pbkc)) 5 mg PO SuMoWeFrSa@1700 [facility] Last Admin: 04/12/20 17:12 Dose: 5 mg Documented by: Warfarin Sodium (Jantoven) 2.5 mg PO TuTh@1700 [facility] Last Admin: 04/10/20 17:04 Dose: 2.5 mg Documented by: STROKE Vital Signs/Narrative: Vital Signs Temp Pulse Resp BP Pulse Ox 04/13/20 04:37 92 04/13/20 04:30 18 94 06/21/20 04:20 98.3 F 89 16 139/76 H 94 Medical Necessity - Tobacco Use Smoking Status: Current every day smoker Assessment/Plan All Active Problems (Last Reviewed 04/10/20 @ 05:[address] Reilly Lopez MD) Acute febrile illness (Acute) The patient is a 79 y/o F w/ PMHx: ESRD on HD (Following w/ Dr. Hayes, recent restart HD), Severe protein calorie malnutrition, Chronic COPD, Hx Lung CA, HTN, HLD, Celiac disease, Hx DVT, GERD, Diabetes mellitus type II, Hx DVTs on coumadin who presents to the [facility] ED on 04/09/20 with history of onset fever at home T 100 with increased fatigue and mildly productive cough with no recent sore throat, nausea, emesis, abdominal pain, alteration to sense of taste or smell or diarrhea. 1. SIRS with lactic acidosis of unclear etiology, Possible COVID: ED presentation with CBC with WBC 13.2, hemoglobin 11.5, platelet 168 with left shift with concurrent lymphopenia, initial INR 1.8, CMP with sodium 135, BUN/creatinine 29/2.50, glucose 272, lactic acid 2.4, unremarkable hepatic pro file, troponin 0 0.017, Coronavirus testing negative, respiratory panel unremarkable, blood culture x2 obtained in the ED but unclear if 1 was via the dialysis port, chest x-ray with no acute cardiopulmonary findings, EKG with sinus tachycardia with no acute evidence of ischemia. Patient admitted to medical surgical status in the ICU given COVID pending upon presentation however resulted negative as noted, continued judicious hydration with repeat lactic 1.0, maintained on meropenem and vancomycin, continued Coumadin INR trending, negative urine antigens, pending sputum culture however preliminary notes normal respiratory randall appearance, blood culture x2 pending per ED with no growth thus far, procalcitonin 0.29, LDH 170, ferritin 738, CRP 7.84, d-dimer 2.31 with duplex ultrasound obtained given subtherapeutic INR with noted Bilateral clot in the left lower extremity soleus vein, additional dose of Coumadin administered with analysis therapeutic level, planned blood culture x1 via HD access on 04/11/2020, pending. Repeat COVID testing negative therefore per ID allowance will de-escalate off precautions. Infectious disease consulted and following with de-escalation off both vancomycin and azithromycin, continued on meropenem with planned 5-day course which would be completed on 04/14/2020 and also ID recommendation to await speciation and sensitivity of sputum culture as noted gram-negative annemarie. HD access blood culture, sputum culture should result over the next 12 to 24 hours and plan to last dose of meropenem 04/14/2020 a.m. therefore following dialysis in the morning and completion of meropenem and less cultures concerning would plan discharge to home. 2. Elevated cardiac enzymes w/ NSTEMI secondary to Demand ischemia secondary to acute presentation #1: Admission troponin 0.017, denied any chest discomfort, as noted admitted to the ICU and maintained on telemetry monitoring with no events have a repeat cardiac trending with increased levels 0.455->0.653->0.556, repeat EKG without acute evidence of ischemia, maintained on asa therapy, magnesium level obtained and noted to be 1.3 with supplementation administered. Echocardiogram with EF 55%, normal LV, normal LV systolic function, mild MVI, trivial TBI, trivial VIVIAN. Cardiology consulted and planned outpatient stress testing. Patient will need follow-up visit at discharge. 3. Acute LLE Soleus Vein Clot w/ Hx DVTs: Given subtherapeutic INR upon presentation and possible COVID, d-dimer obtained and was elevated, duplex ultrasound obtained given significant underlying renal disease with avoidance of CTPA and noted clots, extra dose Coumadin administered and now therapeutic INR, continue to trend. 4. ESRD: Per discussion with Dr. Hayes crossbar switch adjuster patient has vacillated between temporary dialysis and and then has gone several months in between without but recently restarted. Admission BUN/Cr 29/2.50 with repeat 04/13/20 BUN/Cr 22/1.13, pending 04/11/2020 HD access blood culture.discussion with nephrology will plan dialysis on 04/14/2020 early a.m. Once patient received meropenem in the morning would plan discharge following dialysis and have patient complete her outpatient vein mapping. [facility] staff aware to attempt to reschedule vein mapping for the afternoon once she is discharged. 5. Hypertension: Continue home regimen including amlodipine, atenolol hold parameters as needed, PRN hydralazine. 6. Hyperlipidemia: Continue home statin regimen. 7. Chronic COPD: Will maintain on oxygen with wean as tolerated to room air, continue ATC duonebs, PRN albuterol, HOB, IS parameters. 8. Diabetes mellitus type II: Hold oral home regimen, ADA diet, accu checks w/ ISS. 9. Severe protein calorie malnutrition: Evidenced per habitus, reduced BMI of 15, obvious muscle and fat loss, nutrition consulted for recommendations. 10. AOCD: Hemoglobin 11.5, repeat 10.1->04/13/20 Hgb 9.8, continue to trend, stable. 11. GERD: Maintain on PPI. 12. DVT Prophylaxis: SCDs, coumadin w/ INR trending, 04/13/2020 INR 3.0. 13. CODE STATUS: Full code. Inpatient E&M: 67471 Subs Hosp L2
[2020-04-13] MEDS: Acetaminophen 325 MG Tablet 650 MG PO ×2 (07:27→19:52)
--- NOTE | 2020-04-13 08:36 | PCM.PN.REN ---
Patient Problems: Active and Suspected Problems (Last Reviewed 04/10/20 @ 05:[address] Reilly Lopez MD) Acute febrile illness (Acute) Subjective: Following for ESRD. Pt denies CP. Less SOB but still cough with sputum. No edema. - Physical Exam Vitals/I&O's: Vital Signs Temp Pulse Resp BP Pulse Ox 98.3 F 98 21 H 139/76 H 93 04/13/20 04:20 04/13/20 07:32 04/13/20 07:32 04/13/20 04:20 04/13/20 07:32 Oxygen Flow Rate (L/min) 2 Oxygen Delivery Method Room Air Weight: 42.8 kg Body Mass Index (BMI) 15.5 Finger Stick Blood Glucose 149 Intake and Output for Last 24 Hours 04/11/20 04/12/20 04/13/20 23:59 23:59 23:59 Intake Total 990 / 1090 310 / 560 300 / 300 Output Total 650 / 800 300 / 300 Balance 340 / 290 10 / 260 300 / 300 General: Alert, Oriented x3 HEENT: Atraumatic, Normocephalic Oral: Moist Mucosa Neck: Supple Lungs: Clear to auscultation - anteriorly Cardiovascular: Normal S1, Normal S2, No murmurs Abdomen: Bowel Sounds Present, Soft, Non Tender Extremities: No edema Microbiology Past 72 Hours 04/10/20 21:25 Urine, Clean Catch Urine Culture - Final Culture exhibits no growth. 04/10/20 21:15 Sputum, Expectorated/Coughed Gram Stain - Final 04/10/20 21:15 Sputum, Expectorated/Coughed Respiratory Culture - Preliminary GNR lactose controls technician 04/09/20 23:00 Blood Culture (Wb) - Right Hand Blood Culture - Preliminary No growth in 48 hours. 04/09/20 22:12 Blood Culture (Wb) - Anticubital Left Blood Culture - Preliminary No growth in 48 hours. 04/10/20 21:25 Urine, Clean Catch Streptococcus pneumoniae Antigen (M - Final 04/10/20 21:25 Urine, Clean Catch Legionella Antigen - Final 04/10/20 01:45 Mucosa - Nasopharyngeal Respiratory Panel (PCR) - Final Laboratory Results 04/13/20 05:36: WBC 5.9, RBC 3.27 L, Hgb 9.8 L, Hct 31.5 L, MCV 96.3, MCH 30.0, MCHC 31.1 L, RDW Std Deviation 41.1, RDW Coeff of Oly 11.8, Plt Count 158, MPV 10.1, Immature Gran % (Auto) 0.200, Neut % (Auto) 65.3, Lymph % (Auto) 17.6 L, [place] % (Auto) 9.3, Eos % (Auto) 7.3 H, Baso % (Auto) 0.3, Absolute Neuts (auto) 3.9, Absolute Lymphs (auto) 1.04, Nucleated RBC % 0 04/13/20 05:36: Sodium 137, Potassium 3.9, Chloride 104, Carbon Dioxide 25.0, Anion Gap 8, BUN 22 H, Creatinine 1.13 H, Estim Creat Clear Calc 27.72, Est GFR (MDRD) Af Amer 60, Est GFR (MDRD) Non-Af 49 L, BUN/Creatinine Ratio 19.5, Glucose 130 H, Calcium 8.4 L, Total Bilirubin 0.50, AST 12 L, ALT 17, Alkaline Phosphatase 60, Total Protein 5.6 L, Albumin 2.4 L, Globulin 3.2, Albumin/Globulin Ratio 0.8 L 04/13/20 05:36: PT 30.9 H, INR 3.0 Current Medications Acetaminophen (Tylenol) 650 mg PO Q8H PRN PRN PRN Reason: Pain Score 1-10/Temp > 100.7 F Last Admin: 04/13/20 07:27 Dose: 650 mg Documented by: Albuterol Sulfate (Ventolin Aerosols) 2.5 mg INHALATION Q2H PRN PRN PRN Reason: SOB/Wheezing Albuterol/Ipratropium (Duoneb) 3 ml INHALATION Q6H.RT [facility] Last Admin: 04/13/20 06:59 Dose: 3 ml Documented by: Amlodipine Besylate (Norvasc) 10 mg PO DAILY [facility] Last Admin: 04/12/20 08:28 Dose: 10 mg Documented by: Aspirin (Aspirin, Baby) 81 mg PO DAILY@0800 [facility] Last Admin: 04/12/20 08:27 Dose: 81 mg Documented by: Atenolol (Tenormin (Beta Kera)) 12.5 mg PO DAILY [facility] Last Admin: 04/12/20 08:28 Dose: 12.5 mg Documented by: Atorvastatin Calcium (Lipitor) 10 mg PO QHS [facility] Last Admin: 04/12/20 22:08 Dose: 10 mg Documented by: Budesonide (Pulmicort Aerosol) 0.5 mg INHALATION Q12H.RT [facility] Last Admin: 04/13/20 06:59 Dose: 0.5 mg Documented by: Colesevelam HCl (Welchol) 1,875 mg PO BID [facility] Last Admin: 04/12/20 22:09 Dose: 1,875 mg Documented by: Dextrose (D50w Syringe) 0 gm IV X1 PRN; Protocol PRN Reason: Hypoglycemia Glucagon () 1 mg IM .X1 PRN PRN Reason: Hypoglycemia Guaifenesin (Mucinex) 1,200 mg PO BID [facility] Last Admin: 04/12/20 22:08 Dose: 1,200 mg Documented by: Sodium Chloride () 250 mls @ 15 mls/hr IV .[id number] PRN PRN Reason: Saline Flush Sodium Chloride () 250 mls @ 15 mls/hr IV .[id number] PRN PRN Reason: Additional IVPB Infusion Meropenem 500 mg/ Sodium (Chloride) 60 mls @ 100 mls/hr IV DAILY@1500 [facility] Last Infusion: 04/12/20 14:59 Dose: Infused Documented by: Melatonin (Melatonin) 3 mg PO QHS PRN PRN PRN Reason: INSOMNIA Last Admin: 04/12/20 22:07 Dose: 3 mg Documented by: Nutritional Formula (Nepro Carb Steady) 120 ml PO 4X/DAY [facility] Last Admin: 04/12/20 22:24 Dose: 120 ml Documented by: Ondansetron HCl (Zofran) 4 mg IV Q8H PRN PRN PRN Reason: NAUSEA/VOMITING Oxycodone HCl (Oxyir) 5 mg PO Q6H PRN PRN PRN Reason: Pain Score 6-10/10 Last Admin: 04/10/20 19:29 Dose: 5 mg Documented by: Pantoprazole Sodium (Protonix) 20 mg PO DAILY [facility] Last Admin: 04/12/20 08:26 Dose: 20 mg Documented by: Sodium Chloride () 10 - 40 ml IV UD PRN PRN Reason: SALINE FLUSH Last Admin: 04/13/20 04:43 Dose: 10 ml Documented by: Warfarin Sodium (Coumadin (Pbkc)) 5 mg PO SuMoWeFrSa@1700 [facility] Last Admin: 04/12/20 17:12 Dose: 5 mg Documented by: Warfarin Sodium (Jantoven) 2.5 mg PO TuTh@1700 [facility] Last Admin: 04/10/20 17:04 Dose: 2.5 mg Documented by: Medical Necessity - Tobacco Use Smoking Status: Current every day smoker Assessment/Plan All Active Problems (Last Reviewed 04/10/20 @ 05:[address] Reilly Lopez MD) Acute febrile illness (Acute) 1. ESRD. The pt normally dialyzes on Tuesdays and Saturdays schedule. She was dialyzed yesterday, off schedule. Volume, acid/base, and electrolytes are acceptable. No need for dialysis today. Will arrange for dialysis tomorrow as discussed with Dr. Alaniz. 2. Fever with mild leukocytosis. Likely LRTI. Awaiting speciation of bacteria in sputum culture. No fever today. Leukocyte has also decreased. Has TDC but blood cx negative so far. Doubt TDC infection. Abx per ID. 3. HTN. continue current medications. 4. Anemia DOUGLAS with dialysis. Monitor Hgb. 5. COPD and other comorbidities. As per primary team.
[2020-04-13] MEDS: amLODIPine 10 MG Tablet PO (10:23)
[2020-04-13] MEDS: guaiFENesin 1,200 MG Tablet 1200 MG PO ×2 (10:23→21:51)
[2020-04-13] MEDS: Atenolol 25 MG Tablet 12.5 MG PO (10:24)
[2020-04-13] MEDS: Pantoprazole Sodium 20 MG Tablet PO (10:25)
[2020-04-13] MEDS: Aspirin 81 MG TAB.CHEW PO (10:25)
[2020-04-13] MEDS: Loperamide 2 MG Capsule PO (17:32)
[2020-04-13] MEDS: MELATONIN 3 MG TABLET PO (21:52)
[2020-04-13] MEDS: Atorvastatin Calcium 10 MG Tablet PO (21:56)
[2020-04-14] VITALS (8 sets, daily range): BP systolic 124–176; BP diastolic 62–78; PULSE 88–95; RESP 16–22; TEMP 36.6–36.8; O2SAT 96–97
[2020-04-14 06:04] LABS: Absolute Lymphocyte Count 1.38 X10^3/uL (0.83-4.51); Absolute Neutrophil Count 3.2 X10^3/uL (2.0-7.7); Basophil# 0.01 X10^3/uL; Basophil% 0.2 % (0-1); Eosinophil# 0.55 X10^3/uL; Eosinophils% 9.6 % (0-5); Hematocrit 31.1 % (37-47); Lymphocyte # 1.38 X10^3/ul (4.0); Lymphocyte % 24.2 % (19-41); Mean Corp Hgb Conc 32.2 g/dL (32-36); Mean Corpuscular Hgb 30.2 pg (27.0-32.0); Mean Platelet Vol. 9.8 fl (6.2-12.0); Monocyte# 0.58 X10^3/uL; Monocyte% 10.2 % (0-10); NRBC Flagged by Analyzer 0 % (0-5); Neutrophil # 3.17 X10^3/uL (2.7-7.7); Neutrophil % 55.4 % (47-70); Platelet Count 174 K/mm3 (150-450); RBC Distribution Width CV 11.8 % (11.6-14.6); RBC Distribution Width SD 40.2 fl (35.1-43.9); Red Blood Count 3.31 M/mm3 (4.2-5.4); White Blood Count 5.7 K/mm3 (4.4-11.0)
[2020-04-14 06:18] LABS: International Normalized Ratio 2.8; Prothrombin Time (Protime)PT. 28.9 SECONDS (11.7-14.9)
[2020-04-14 06:31] LABS: ALB/GLOB Ratio 0.8 RATIO (0.9-2.4); AST(SGOT) 11 U/L (15-37); Alanine Aminotransfer ALT/SGPT 16 U/L (13-56); Albumin, Serum 2.4 g/dL (3.2-5.0); Alkaline Phosphatase 59 U/L (45-117); Anion Gap 8 (5-15); BUN 24 mg/dL (7-18); BUN/Creat Ratio 22.4 RATIO (10-20); Calcium,Total 8.5 mg/dL (8.5-10.1); Chloride 104 mmol/L (98-107); Creatinine, Serum 1.07 mg/dL (0.55-1.02); EST Glomerular Filtration Rate 53 mL/min (>60); Est Glom Filt Rate - Afr Amer 64 mL/min (>60); Estimated Creatinine Clearance 29.28 ml/min; Globulin 3.1 g/dL (2.2-4.2); Glucose 119 mg/dL (74-106); Potassium 3.9 mmol/L (3.5-5.1); Protein, Total 5.5 g/dL (6.4-8.2); Sodium Level 137 mmol/L (136-145)
[2020-04-14] MEDS: Budesonide Respules 0.5 MG/2 ML AMPUL.NEB. INHALATION (07:07)
[2020-04-14] MEDS: Ipratropium/Albuterol Sulfate 3 ML AMPUL.NEB INHALATION (07:07)
[2020-04-14] MEDS: oxyCODONE 5 MG Tablet PO (08:35)
[2020-04-14] MEDS: Aspirin 81 MG TAB.CHEW PO (08:35)
[2020-04-14] MEDS: Acetaminophen 325 MG Tablet 650 MG PO (08:36)
--- NOTE | 2020-04-14 09:23 | DCINST_ITS ---
- Discharge Diagnoses Current Active Problems: Current Active and Chronic Problems (Last Reviewed 04/10/20 @ 05:[address] Reilly Lopez MD) Acute febrile illness (Acute) You will use the following diet at home:: Cardiac, Renal (restricted protein/sodium) Discharge Activity: Return to Normal Activity Weight Bearing Status: Weight bearing as tolerated Call your doctor if you observe: Fever of 101 or Higher, Shortness of breath, Dizziness, Fainting spells, Chest pain, Increased palpitations (irregular heartbeat), Uncontrolled pain Allergies/Adverse Reactions: Allergies gluten Allergy (Unknown, Verified 04/10/20 10:38) Food Allergy diltiazem HCl [From Cardizem] Allergy (Verified 03/10/20 14:03) Angioedema fluticasone furoate [From Breo Ellipta] Allergy (Verified 04/09/20 22:01) PT UNSURE OF REACTION gatifloxacin [From Tequin] Allergy (Verified 03/10/20 14:03) Unknown hydrochlorothiazide [From Maxzide] Allergy (Verified 03/10/20 14:03) Other Penicillins [PCN] Allergy (Verified 03/10/20 14:03) Hives triamterene [From Maxzide] Allergy (Verified 03/10/20 14:03) Other vilanterol [From Breo Ellipta] Allergy (Verified 04/09/20 22:01) PT UNSURE OF REACTION codeine Adverse Reaction (Verified 03/10/20 14:03) Upset Stomach Medications to take at Discharge Omeprazole [Prilosec] 20 mg PO DAILY 12/30/14 amlodipine 5 mg tablet 10 mg PO DAILY 08/28/18 atenolol 25 mg tablet 12.5 mg PO DAILY 08/28/18 Simvastatin 20 mg PO DAILY 12/24/18 Tiotropium [place] [Spiriva Respimat] 2 puff INHALATION DAILY 01/17/19 Warfarin Sodium [Coumadin] 5 mg PO SUMOWEFRSA 01/17/19 mometasone-formoterol HFA 200 mcg-5 mcg/actuation aerosol inhaler 2 puff INHALATION BID #3 device 04/30/19 colesevelam 625 mg tablet 1,875 mg PO BID 12/13/19 guaifenesin 1,200 mg tablet, extended release 12 hr 1,200 mg PO BID 03/10/20 Azithromycin 250 mg PO MOWEFR 04/09/20 Glimepiride 0.5 mg PO DAILY 04/09/20 Warfarin [Coumadin] 2.5 mg PO TUTH 04/09/20 Albuterol IH (ProAir) [Proair Hfa] 2 puff INHALATION Q4H PRN PRN #2 inhaler 04/14/20 The following prescriptions were given: Albuterol IH (ProAir) [Proair Hfa] 2 puff INHALATION Q4H PRN PRN #2 inhaler PRN Reason: Sob &/Or Wheezing Transmission Status: Pending to [facility]/pharmacy #[id number] Primary Care Physician: Yudith Rosales DO [Primary Care Provider] - Please follow up with your Primary Care Physician in: 1 week. Test Results: Test results from this visit will be discussed in further detail at your follow- up appointment, if applicable. Please Follow Up With: Ryan Ventura MD When: as per him
--- NOTE | 2020-04-14 10:18 | PHA.DC.MC ---
Pharmacy Service has performed discharge medication reconciliation and counseling for this patient. The patient was counseled on the following discharge medications and changes in medications for homegoing were reviewed. 1. PROAIR INHALER: 2 PUFFS Q4H PRN SOB/WHEEZING The Reason for Use, instructions for use, and potential side effects were reviewed for all new medications. The patient's questions regarding all of their medications were answered. Home Medications Omeprazole [Prilosec] 20 mg PO DAILY 12/30/14 amlodipine 5 mg tablet 10 mg PO DAILY 08/28/18 atenolol 25 mg tablet 12.5 mg PO DAILY 08/28/18 Simvastatin 20 mg PO DAILY 12/24/18 Tiotropium [place] [Spiriva Respimat] 2 puff INHALATION DAILY 01/17/19 Warfarin Sodium [Coumadin] 5 mg PO SUMOWEFRSA 01/17/19 mometasone-formoterol HFA 200 mcg-5 mcg/actuation aerosol inhaler 2 puff INHALATION BID #3 device 04/30/19 colesevelam 625 mg tablet 1,875 mg PO BID 12/13/19 guaifenesin 1,200 mg tablet, extended release 12 hr 1,200 mg PO BID 03/10/20 Azithromycin 250 mg PO MOWEFR 04/09/20 Glimepiride 0.5 mg PO DAILY 04/09/20 Warfarin [Coumadin] 2.5 mg PO TUTH 04/09/20 Albuterol IH (ProAir) [Proair Hfa] 2 puff INHALATION Q4H PRN PRN #2 inhaler 04/14/20 The patient's discharge medication list was reviewed for discrepancies and discrepancies were resolved. The patient was able to verbally demonstrate an understanding of their discharge medications. NOTE: Proair medication initially sent to [facility] per preferred pharmacy. While counseling pt expressed desire to utilize [facility] meds to beds program. Called [facility] to notify, prescription to be transferred over from [facility] to [facility] pharmacy.
--- NOTE | 2020-04-14 12:55 | DIALYSIS ---
2 Hr. hemodialysis complete. pt tolerated well. no volume removed. ran even. vss, pt stable. Pt has been informed to continue dialysis at chronic unit as before. w
--- NOTE | 2020-04-14 13:19 | PCM.DC.SUM ---
Discharge Date and Diagnosis Date of Admission: 04/09/20 Date of Discharge: 04/14/20 - Primary Discharge Diagnosis Acute Problems: Active Problems (Last Reviewed 04/10/20 @ 05:[address] Reilly Lopez MD) #1 severe sepsis based on mild leukocytosis, heart rate above 90, respiratory rate above 20, elevated lactic acid without evidence of infection. #2 no source of infection identified. #3 abnormal cardiac enzymes, attributed to demand ischemia. #4 acute left soleus vein DVT. #5 ESRD on hemodialysis. - Secondary Discharge Diagnosis Chronic Problems: Chronic Problems (Last Reviewed 04/10/20 @ 05:[address] 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 No acute chest disease. Electronically Signed: Kendall Canada MD at 23:07 EDT , Service support , Chest X-Ray 04/11/20 05:55 IMPRESSION: No acute cardiopulmonary abnormality. No significant interval change. at 0749 Reported and signed by: Maria Isabel Medrano MD Electronically Signed: Maria Isabel Medrano MD at 7:49 EDT Tel , Service support , Dr. Vang, nephrology. Dr. Tsang, cardiology. Dr. Scherer, infectious disease. Operations: None Procedures: 2-D Echocardiogram, EKG Summary of Care Provided: Patient seen and examined on the day of discharge and appeared to be stable to be discharged home. She had no more fever. Complained of mild cough without sputum production. Denied other complaints. Her vital signs are stable. The patient is a 79 year old F presented to the emergency room because of cough, subjective fever and generalized weakness and she was admitted for acute febrile illness for evaluation. On admission, patient did have leukocytosis, heart rate was more than 90, respiratory rate was more than 20 and lactic acid was 2.4 without evidence of infection and this is consistent with severe sepsis. Chest x-ray showed no acute infiltrate. Urinalysis revealed no evidence of acute infection. Patient was treated with empiric IV meropenem and she completed course of 5 days of treatment. Pneumococcal and Legionella antigen were negative. Respiratory panel for viruses were negative. Blood culture showed no growth in 5 days. Repeat blood culture showed no growth in 48 hours. Sputum culture revealed Klebsiella pneumoniae although chest x-ray showed no active infiltrate and this could be due to colonization. Testing for COVID-19 done twice by PCR and was negative. Infectious disease consulted and recommended to continue empiric IV antibiotics for 5 days. During this admission, no obvious source of infection identified. Patient was found to have abnormal cardiac enzymes, troponin was indeterminate without acute ischemic changes on EKG. Cardiology consulted and recommended 2D echocardiogram which revealed ejection fraction of 55%. Cardiology recommended no other testing at this time. Venous Doppler of the lower extremities done and revealed acute DVT of the left soleus vein. She had history of DVTs in the past and she has been on Coumadin but on admission, her INR was subtherapeutic at 1.8. Patient was continued on Coumadin and her INR became therapeutic. Patient discharged home in a stable medical condition, she completed 5 days of IV meropenem, discharged on same previous dose of Coumadin, INR on discharge was 2.8, continued on her other previous home medications including prophylactic azithromycin, recommended follow-up with PCP in 1 week and follow-up with nephrology according to the recommendation. - Physical Exam Vitals/I&O's: Vital Signs Temp Pulse Resp BP Pulse Ox 98 F 88 22 H 176/78 H 96 04/14/20 13:03 04/14/20 13:03 04/14/20 13:03 04/14/20 13:03 04/14/20 08:40 Oxygen Flow Rate (L/min) 2 Oxygen Delivery Method Room Air Weight: 94 lb 9.253 oz Body Mass Index (BMI) 15.5 Finger Stick Blood Glucose 149 Intake and Output for Last 24 Hours 04/12/20 04/13/20 04/14/20 23:59 23:59 23:59 Intake Total 310 / 560 1100.5 / 1490.5 440 / 440 Output Total 300 / 300 0 / 0 Balance 10 / 260 1100.5 / 1490.5 440 / 440 General: Alert, Oriented x3, Cooperative, No apparent distress HEENT: Atraumatic, PERRLA, EOMI, Normocephalic Oral: Moist Mucosa, No Gingival or Mucosal Lesions/ Ulcerations Neck: Supple, No JVD, Negative Carotid Bruits Lungs: Clear to auscultation, Normal air movement, No wheeze, No rales, Diminished, Rhonchi Cardiovascular: Regular rate, Regular Rhythm, Normal S1, Normal S2, PMI Normal Abdomen: Bowel Sounds Present, Soft, Non Tender, Non-Distended, No Hepato-splenomegaly Extremities: No clubbing, No cyanosis, No edema Skin: No rashes, No breakdown Lymphatic: No Cervical, Supraclavicular, or Inguinal Adenopathy Neurological: Cranial nerves II-XII grossly intact, Neuro grossly intact Psych/Mental Status: Normal Affect, Appropriate Microbiology Past 72 Hours 04/10/20 21:15 Sputum, Expectorated/Coughed Gram Stain - Final 04/10/20 21:15 Sputum, Expectorated/Coughed Respiratory Culture - Final Klebsiella pneumoniae sp pneum 04/11/20 14:40 Blood Culture (Wb) - Catheter Blood Culture - Preliminary No growth in 48 hours. 04/10/20 21:25 Urine, Clean Catch Urine Culture - Final Culture exhibits no growth. 04/09/20 23:00 Blood Culture (Wb) - Right Hand Blood Culture - Preliminary No growth in 48 hours. 04/09/20 22:12 Blood Culture (Wb) - Anticubital Left Blood Culture - Preliminary No growth in 48 hours. Laboratory Results 04/14/20 05:20: WBC 5.7, RBC 3.31 L, Hgb 10.0 L, Hct 31.1 L, MCV 94.0, MCH 30.2, MCHC 32.2, RDW Std Deviation 40.2, RDW Coeff of Oly 11.8, Plt Count 174, MPV 9.8, Immature Gran % (Auto) 0.400, Neut % (Auto) 55.4, Lymph % (Auto) 24.2, Coal % (Auto) 10.2 H, Eos % (Auto) 9.6 H, Baso % (Auto) 0.2, Absolute Neuts (auto) 3.2, Absolute Lymphs (auto) 1.38, Nucleated RBC % 0 04/14/20 05:20: Sodium 137, Potassium 3.9, Chloride 104, Carbon Dioxide 25.0, Anion Gap 8, BUN 24 H, Creatinine 1.07 H, Estim Creat Clear Calc 29.28, Est GFR (MDRD) Af Amer 64, Est GFR (MDRD) Non-Af 53 L, BUN/Creatinine Ratio 22.4 H, Glucose 119 H, Calcium 8.5, Total Bilirubin 0.40, AST 11 L, ALT 16, Alkaline Phosphatase 59, Total Protein 5.5 L, Albumin 2.4 L, Globulin 3.1, Albumin/Globulin Ratio 0.8 L 04/14/20 05:20: PT 28.9 H, INR 2.8 Current Medications Acetaminophen (Tylenol) 650 mg PO Q8H PRN PRN PRN Reason: Pain Score 1-10/Temp > 100.7 F Last Admin: 04/14/20 08:36 Dose: 650 mg Documented by: Albuterol Sulfate (Ventolin Aerosols) 2.5 mg INHALATION Q2H PRN PRN PRN Reason: SOB/Wheezing Albuterol/Ipratropium (Duoneb) 3 ml INHALATION Q6H.RT [facility] Last Admin: 04/14/20 07:07 Dose: 3 ml Documented by: Amlodipine Besylate (Norvasc) 10 mg PO DAILY [facility] Last Admin: 04/13/20 10:23 Dose: 10 mg Documented by: Aspirin (Aspirin, Baby) 81 mg PO DAILY@0800 [facility] Last Admin: 04/14/20 08:35 Dose: 81 mg Documented by: Atenolol (Tenormin (Beta Kera)) 12.5 mg PO DAILY [facility] Last Admin: 04/13/20 10:24 Dose: 12.5 mg Documented by: Atorvastatin Calcium (Lipitor) 10 mg PO QHS [facility] Last Admin: 04/13/20 21:56 Dose: 10 mg Documented by: Budesonide (Pulmicort Aerosol) 0.5 mg INHALATION Q12H.RT [facility] Last Admin: 04/14/20 07:07 Dose: 0.5 mg Documented by: Colesevelam HCl (Welchol) 1,875 mg PO BID [facility] Last Admin: 04/13/20 21:51 Dose: 1,875 mg Documented by: Dextrose (D50w Syringe) 0 gm IV X1 PRN; Protocol PRN Reason: Hypoglycemia Glucagon () 1 mg IM .X1 PRN PRN Reason: Hypoglycemia Guaifenesin (Mucinex) 1,200 mg PO BID [facility] Last Admin: 04/13/20 21:51 Dose: 1,200 mg Documented by: Sodium Chloride () 250 mls @ 15 mls/hr IV .[id number] PRN PRN Reason: Saline Flush Last Infusion: 04/13/20 17:05 Dose: 0 mls/hr Documented by: Sodium Chloride () 250 mls @ 15 mls/hr IV .[id number] PRN PRN Reason: Additional IVPB Infusion Meropenem 500 mg/ Sodium (Chloride) 60 mls @ 100 mls/hr IV DAILY@1500 [facility] Last Infusion: 04/13/20 16:20 Dose: Infused Documented by: Loperamide HCl (Imodium) 2 mg PO Q6H PRN PRN PRN Reason: Diarrhea Last Admin: 04/13/20 17:32 Dose: 2 mg Documented by: Melatonin (Melatonin) 3 mg PO QHS PRN PRN PRN Reason: INSOMNIA Last Admin: 04/13/20 21:52 Dose: 3 mg Documented by: Nutritional Formula (Nepro Carb Steady) 120 ml PO 4X/DAY [facility] Last Admin: 04/13/20 21:52 Dose: Not Given Documented by: Ondansetron HCl (Zofran) 4 mg IV Q8H PRN PRN PRN Reason: NAUSEA/VOMITING Oxycodone HCl (Oxyir) 5 mg PO Q6H PRN PRN PRN Reason: Pain Score 6-10/10 Last Admin: 04/14/20 08:35 Dose: 5 mg Documented by: Pantoprazole Sodium (Protonix) 20 mg PO DAILY [facility] Last Admin: 04/13/20 10:25 Dose: 20 mg Documented by: Sodium Chloride () 10 - 40 ml IV UD PRN PRN Reason: SALINE FLUSH Last Admin: 04/13/20 15:43 Dose: 10 ml Documented by: Warfarin Sodium (Coumadin (Pbkc)) 5 mg PO SuMoWeFrSa@1700 [facility] Last Admin: 04/13/20 17:33 Dose: 5 mg Documented by: Warfarin Sodium (Jantoven) 2.5 mg PO TuTh@1700 [facility] Last Admin: 04/10/20 17:04 Dose: 2.5 mg Documented by: Discharge Activity: Return to Normal Activity Weight Bearing Status: Weight bearing as tolerated Call your doctor if you observe: Fever of 101 or Higher, Shortness of breath, Dizziness, Fainting spells, Chest pain, Increased palpitations (irregular heartbeat), Uncontrolled pain Home Medications: Medications to take at Discharge Omeprazole [Prilosec] 20 mg PO DAILY 12/30/14 amlodipine 5 mg tablet 10 mg PO DAILY 08/28/18 atenolol 25 mg tablet 12.5 mg PO DAILY 08/28/18 Simvastatin 20 mg PO DAILY 12/24/18 Tiotropium [place] [Spiriva Respimat] 2 puff INHALATION DAILY 01/17/19 Warfarin Sodium [Coumadin] 5 mg PO SUMOWESA 01/17/19 mometasone-formoterol HFA 200 mcg-5 mcg/actuation aerosol inhaler 2 puff INHALATION BID #3 device 04/30/19 colesevelam 625 mg tablet 1,875 mg PO BID 12/13/19 guaifenesin 1,200 mg tablet, extended release 12 hr 1,200 mg PO BID 03/10/20 Azithromycin 250 mg PO MOWEFR 04/09/20 Glimepiride 0.5 mg PO DAILY 04/09/20 Warfarin [Coumadin] 2.5 mg PO TUTH 04/09/20 Albuterol IH (ProAir) [Proair Hfa] 2 puff INHALATION Q4H PRN PRN #2 inhaler 04/14/20 Following Prescrptions Were Given to Patient: Albuterol IH (ProAir) [Proair Hfa] 2 puff INHALATION Q4H PRN PRN #2 inhaler PRN Reason: Sob &/Or Wheezing Transmission Status: Received by [facility]/pharmacy #[id number] Primary Care Physician: Yudith Rosales DO [Primary Care Provider] - Please follow up with your Primary Care Physician in: 1 week. Please Follow Up With: Ryan Ventura MD When: as per him Please Follow Up With: Yudith Rosales DO Disposition: Home Minutes spent on discharge:: 33 Patient Condition:: Stable Medical Necessity - Tobacco Use Smoking Status: Current every day smoker Meaningful Use Info Meaningful Use Diagnoses (Choose all that apply): None applicable Inpatient E&M: 18147 Disch Hosp
--- NOTE | 2020-04-14 13:22 | CASEMGMT ---
Addendum entered by Eden Reyes 04/14/20 13:25: RN updated this worker that pt is too tired to drive herself to dialysis tomorrow. SW provided RN with transportation resources to give to pt. Pt states she will call to get transportation scheduled. Original Note: Social Work Note Pt is discharging home today. SW placed a call to Fabi Ortiz at [facility] and left message regarding pt's discharge. SW faxed discharge paperwork to Fabi at [facility]. Eden Reyes [employer], [employer]
--- NOTE | 2020-04-16 15:48 | CASEMGMT ---
EDUARD WHITLOCK Discharge Follow-up Phone Call: MUNIR: Elan Strata: 3 Call Date: 04/16/2020 Discharge Date: 04/14/2020 Time of Call: 1545 Duration: 5 min Admitting Diagnosis: Acute febrile illness EDUARD WHITLOCK completed follow-up phone call after recent hospitalization. Patient states she is doing better, no fever. Patient states she did not have any questions regarding discharge instructions. Patient was able to fill prescription without any issues. Patient states she has follow-up appts scheduled. No further questions or concerns at this time.
== END 2020-04-14 13:30 | disposition home or self-care (01) | DRG 871 ==
LOC: ED 23:57 → ICU 04-10 01:46 → MS3 04-12 15:38
PROVIDERS: Family Medicine; Internal Medicine Infectious Disease; Admitting Provider Hospitalist; Emergency Provider Emergency Medicine; PCP Internal Medicine; Visit Provider Hospitalist
DX: A41.9 Sepsis, unspecified organism (principal); N18.6 End stage renal disease; E43 Unspecified severe protein-calorie malnutrition; I21.A1 Myocardial infarction type 2; E87.2 Acidosis; Z68.1 Body mass index [BMI] 19.9 or less, adult; I12.0 Hypertensive chronic kidney disease with stage 5 chronic kidney disease or end stage renal disease; R65.20 Severe sepsis without septic shock; I82.462 Acute embolism and thrombosis of left calf muscular vein; Z99.2 Dependence on renal dialysis; D63.1 Anemia in chronic kidney disease; J44.9 Chronic obstructive pulmonary disease, unspecified; E11.22 Type 2 diabetes mellitus with diabetic chronic kidney disease; E78.49 Other hyperlipidemia; K90.0 Celiac disease; K21.9 Gastro-esophageal reflux disease without esophagitis; F17.210 Nicotine dependence, cigarettes, uncomplicated; Z79.01 Long term (current) use of anticoagulants; Z79.84 Long term (current) use of oral hypoglycemic drugs; Z79.899 Other long term (current) drug therapy; Z88.0 Allergy status to penicillin; Z86.718 Personal history of other venous thrombosis and embolism; Z85.118 Personal history of other malignant neoplasm of bronchus and lung
CPT/HCPCS: 36415; 71045; 80048; 80053; 81001; 82728; 82962; 83605; 83615; 83735; 84145; 84478; 84484; 85025; 85379; 85610; 85652; 86140; 87040; 87070; 87077; 87086; 87186; 87205; 87449; 87633; 87635; 87641; 90937; 93005; 93306; 93970; 94640; 97110; 97116; 97162; 97166; 97530; 97535; 99251; 99285; G2023; J2185; J7030; J7050; A4216; G0257; G0463; Q5106; U0003

== ENCOUNTER → 2020-04-14 13:35 | Outpatient (CLI) | payer MEDICARE, OTHER, MEDICAID, SELFPAY ==
[2019-12-13 14:18] VITALS: BMI 14.9
[2020-04-10 01:34] VITALS: BMI 15.5
--- NOTE | 2020-04-14 13:44 | VDUE_ITS ---
Reason For Study: ESRD Right Arm Left Arm Right cephalic vein is compressible. Left cephalic vein is compressible. Right Cephalic Vein at the shoulder Left Cephalic Vein at the shoulder measures .21 x .24 cm. measures .23 x .23 cm. Right Cephalic Vein mid bicep measures .2 Left Cephalic Vein at mid bicep measures .16 x .23 cm. x .18 cm. Right Cephalic Vein above antecub Left Cephalic Vein above antecub measures .18 measures .17 x .16 cm. x .2 cm. Right Cephalic Vein below antecub Left Cephalic Vein below antecub measures .28 measures .27 x .28 cm. x .28 cm. Right Cephalic Vein in the forearm Left Cephalic Vein in the forearm measures .29 x .33 cm. measures .22 x .24 cm. Right Cephalic Vein at the wrist measures .28 Left Cephalic Vein at the wrist measures .28 x .29 cm. x .3 cm. Right basilic vein is compressible. Left basilic vein is compressible. Right Basilic Vein mid bicep measures .28 Basilic vein at bicep measures .34 x .36 cm. x .28 cm. Basilic vein above antecub measures .39 x .39 Right Basilic Vein above antecub measures .42 cm. x .43 cm. Basilic vein below antecub measures .2 x .28 Right Basilic Vein below antecub measures .35 cm. x .39 cm. Basilic vein in the forearm measures .23 Right Basilic Vein in the forearm x .24 cm. measures .24 x .26 cm. Basilic vein at the wrist measures .24 x .28 Right Basilic Vein at the wrist measures .27 cm. x .33 cm. Brachial Art .27 x .26 cm. Brachial Art .26 x .31 cm. Brachial Art 121.4 cm/s. Brachial Art 136.3 cm/s. Radial Art .13 x .15 cm. Radial Art .18 x .18 cm. Radial Art 86.7 cm/s. Radial Art 66.8 cm/s. Interpretation Summary Patent and compressible bilateral upper extremity cephalic and basilic veins with dimensions as noted. Diminutive bilateral radial arteries Small bilateral brachial arteries Ordering Physician: Lukas Hayes Performed By: Ko Miranda RVT ?
== END ==
PROVIDERS: PCP Internal Medicine; Referring Provider Internal Medicine Nephrology; Visit Provider Internal Medicine Nephrology
DX: Z01.818 Encounter for other preprocedural examination (principal); N18.6 End stage renal disease
CPT/HCPCS: 93970

== ENCOUNTER 2020-05-23 12:51 | Outpatient (RCR) | payer MEDICARE, OTHER, MEDICAID, SELFPAY ==
[2020-04-21 12:05] VITALS: BMI 14.8
[2020-05-05 13:26] VITALS: BMI 14.8
[2020-05-09 12:35] LABS: Prothrombin Time Fingerstick 31.7 SEC (11.9-14.4)
[2020-05-23 13:00] LABS: Prothrombin Time Fingerstick 22.2 SEC (11.9-14.4)
== END 2020-05-23 18:00 | disposition home or self-care (01) ==
LOC: LAB 12:51
PROVIDERS: Family Provider Internal Medicine; PCP Internal Medicine; Referring Provider Internal Medicine; Visit Provider Internal Medicine
DX: I82.90 Acute embolism and thrombosis of unspecified vein (principal); Z79.01 Long term (current) use of anticoagulants
CPT/HCPCS: 36416; 85610

== ENCOUNTER 2020-06-20 13:04 | Outpatient (RCR) | payer MEDICARE, OTHER, MEDICAID, SELFPAY ==
[2020-05-05 13:26] VITALS: BMI 14.8
[2020-06-06 12:40] LABS: Prothrombin Time Fingerstick 16.5 SEC (11.9-14.4)
[2020-06-20 13:54] LABS: International Normalized Ratio 1.2; Prothrombin Time (Protime)PT. 14.5 SECONDS (11.7-14.9)
[2020-06-20 14:13] LABS: Anion Gap 6 (5-15); BUN 54 mg/dL (7-18); Calcium,Total 8.7 mg/dL (8.5-10.1); Chloride 108 mmol/L (98-107); EST Glomerular Filtration Rate 36 mL/min (>60); Est Glom Filt Rate - Afr Amer 43 mL/min (>60); Glucose 72 mg/dL (74-106); Potassium 4.4 mmol/L (3.5-5.1); Sodium Level 139 mmol/L (136-145)
== END 2020-06-23 18:00 | disposition home or self-care (01) ==
LOC: LAB 13:04
PROVIDERS: Family Provider Internal Medicine; PCP Internal Medicine; Referring Provider Internal Medicine; Visit Provider Internal Medicine
DX: I82.90 Acute embolism and thrombosis of unspecified vein (principal); Z79.01 Long term (current) use of anticoagulants
CPT/HCPCS: 36415; 36416; 80048; 85610

== ENCOUNTER 2020-07-14 13:23 | Outpatient (RCR) | payer MEDICARE, OTHER, MEDICAID, SELFPAY ==
[2020-05-05 13:26] VITALS: BMI 14.8
--- NOTE | 2020-07-14 13:43 | RAD_ITS ---
STUDY: X-RAY - PELVIS AND LEFT HIP REASON FOR EXAM: Increasing left hip/thigh pain for years, no specific injury. TECHNIQUE: 2 views of the pelvis and hip. COMPARISON: None. FINDINGS: There is vascular calcification. Normal bilateral iliac wings, sacroiliac joints and visualized sacrum. Normal bilateral superior and inferior pubic rami. Normal pubic symphysis. Normal bilateral ischial tuberosities. Normal visualized femoral head. Normal acetabulum. There is mild joint space narrowing of the left superomedial hip joint. RAD/HIP, UNI W/ Pelvis 2-3 Views IMPRESSION: Mild left hip arthrosis. Electronically Signed: Girma Méndez MD at 11:02 EDT Tel , Service support ,
--- NOTE | 2020-07-14 13:43 | RAD_ITS ---
STUDY: X-RAY - CERVICAL SPINE REASON FOR EXAM: Female, 79 years old. Increased neck pain x years, nki TECHNIQUE: 4 view(s) of the cervical spine were obtained. COMPARISON: None FINDINGS: Normal anterior atlantoaxial articulation. Normal odontoid process. There is straightening of the normal cervical lordosis. There is multi-level endplate spondylosis. Normal disc space heights. Normal visualized intervertebral neuroforamina. Facet joint osteoarthritis The soft tissue structures are unremarkable. RAD/Cerv Spine 2 or 3 Views IMPRESSION: Multilevel spondylosis and disc space narrowing with facet joint osteoarthritis. Electronically Signed: Yahir Healy, at 14:13 EDT , Service support ,
--- NOTE | 2020-07-14 13:45 | RAD_ITS ---
STUDY: X-RAY - LUMBAR SPINE REASON FOR EXAM: Female, 79 years old. Pain. TECHNIQUE: 3 view(s) of the lumbar spine were obtained. COMPARISON: None FINDINGS: Normal lumbar lordosis. There is no substantial scoliosis. There is minimal anterolisthesis of L4 and L5. The alignment is otherwise preserved. There is multilevel endplate spondylosis of the lumbar vertebrae. There is multi-level degenerative disc disease with multi-level disc space narrowing. This is most marked at L4-5. There is no evidence of acute fracture or loss of vertebral axial height.. There is atherosclerotic changes of the abdominal aorta. The distal aorta measures 3.7 cm in AP diameter. RAD/Lumbar Spine 2 or 3 Views IMPRESSION: 1. Degenerative changes of the spine, as detailed above. 2. Distal abdominal aortic aneurysm with maximum AP diameter of 3.7 cm. Electronically Signed: Tarik Villagomez DO at 21:11 EDT Tel [phone], Service support ,
[2020-07-14 14:14] LABS: Absolute Lymphocyte Count 1.96 X10^3/uL (0.83-4.51); Absolute Neutrophil Count 6.5 X10^3/uL (2.0-7.7); Basophil# 0.03 X10^3/uL; Basophil% 0.3 % (0-1); Eosinophil# 0.14 X10^3/uL; Eosinophils% 1.5 % (0-5); Hematocrit 43.9 % (37-47); Lymphocyte # 1.96 X10^3/ul (4.0); Lymphocyte % 20.9 % (19-41); Mean Corp Hgb Conc 31.9 g/dL (32-36); Mean Corpuscular Hgb 30.6 pg (27.0-32.0); Mean Corpuscular Volume 95.9 fL (81-99); Mean Platelet Vol. 10.9 fl (6.2-12.0); Monocyte# 0.75 X10^3/uL; NRBC Flagged by Analyzer 0 % (0-5); Neutrophil # 6.46 X10^3/uL (2.7-7.7); Neutrophil % 69.1 % (47-70); Platelet Count 147 K/mm3 (150-450); RBC Distribution Width CV 12.8 % (11.6-14.6); RBC Distribution Width SD 45.2 fl (35.1-43.9); Red Blood Count 4.58 M/mm3 (4.2-5.4); White Blood Count 9.4 K/mm3 (4.4-11.0)
[2020-07-14 14:23] LABS: International Normalized Ratio 2.3; Prothrombin Time (Protime)PT. 25.1 SECONDS (11.7-14.9)
[2020-07-14 15:44] LABS: Hemoglobin A1c 5.7 % (3.8-5.6)
[2020-07-14 16:54] LABS: ALB/GLOB Ratio 1.1 RATIO (0.9-2.4); AST(SGOT) 19 U/L (15-37); Alanine Aminotransfer ALT/SGPT 28 U/L (13-56); Albumin, Serum 3.6 g/dL (3.2-5.0); Alkaline Phosphatase 117 U/L (45-117); Anion Gap 7 (5-15); BUN 34 mg/dL (7-18); BUN/Creat Ratio 21.5 RATIO (10-20); Calcium,Total 8.6 mg/dL (8.5-10.1); Chloride 110 mmol/L (98-107); Creatinine, Serum 1.58 mg/dL (0.55-1.02); EST Glomerular Filtration Rate 34 mL/min (>60); Est Glom Filt Rate - Afr Amer 41 mL/min (>60); Globulin 3.2 g/dL (2.2-4.2); Glucose 51 mg/dL (74-106); Potassium 4.4 mmol/L (3.5-5.1); Protein, Total 6.8 g/dL (6.4-8.2); Sodium Level 138 mmol/L (136-145); Thyroid Stim Hormone (TSH) 1.07 uIU/mL (0.358-3.74)
== END 2020-07-14 18:00 | disposition home or self-care (01) ==
LOC: LAB 13:23
PROVIDERS: Family Provider Internal Medicine; PCP Internal Medicine; Referring Provider Internal Medicine; Visit Provider Internal Medicine
DX: M54.2 Cervicalgia (principal); M25.552 Pain in left hip; M54.5 Low back pain; I82.90 Acute embolism and thrombosis of unspecified vein; Z79.01 Long term (current) use of anticoagulants; E11.65 Type 2 diabetes mellitus with hyperglycemia; N28.9 Disorder of kidney and ureter, unspecified; I10 Essential (primary) hypertension
CPT/HCPCS: 36415; 72040; 72100; 73502; 80053; 83036; 84443; 85025; 85610

== ENCOUNTER 2020-07-29 13:18 | Outpatient (RCR) | payer MEDICARE, OTHER, MEDICAID, SELFPAY ==
[2020-05-05 13:26] VITALS: BMI 14.8
[2020-07-29 07:57] VITALS: BMI 14.6
[2020-07-29 13:30] LABS: Prothrombin Time Fingerstick 28.7 SEC (11.9-14.4)
== END 2020-07-29 18:00 | disposition home or self-care (01) ==
LOC: LAB 13:18
PROVIDERS: Family Provider Internal Medicine; PCP Internal Medicine; Referring Provider Internal Medicine; Visit Provider Internal Medicine
DX: I82.90 Acute embolism and thrombosis of unspecified vein (principal); Z79.01 Long term (current) use of anticoagulants
CPT/HCPCS: 36416; 85610

== ENCOUNTER 2020-09-12 11:59 | Outpatient (RCR) | payer MEDICARE, OTHER, MEDICAID, SELFPAY ==
[2020-09-12 13:17] LABS: Hematocrit 39.4 % (37-47); Hemoglobin 12.3 g/dL (12.0-15.0); Mean Corp Hgb Conc 31.2 g/dL (32-36); Mean Corpuscular Volume 96.1 fL (81-99); Mean Platelet Vol. 10.9 fl (6.2-12.0); Platelet Count 142 K/mm3 (150-450); RBC Distribution Width CV 13.2 % (11.6-14.6); RBC Distribution Width SD 47.4 fl (35.1-43.9); White Blood Count 10.6 K/mm3 (4.4-11.0)
[2020-09-12 13:40] LABS: PTHIN 103.1 pg/mL (18.4-80.1)
[2020-09-12 13:56] LABS: Anion Gap 8 (5-15); BUN 23 mg/dL (7-18); BUN/Creat Ratio 14.6 RATIO (10-20); Calcium,Total 7.7 mg/dL (8.5-10.1); Chloride 112 mmol/L (98-107); Creatinine, Serum 1.58 mg/dL (0.55-1.02); EST Glomerular Filtration Rate 34 mL/min (>60); Est Glom Filt Rate - Afr Amer 41 mL/min (>60); Glucose 124 mg/dL (74-106); Potassium 4.1 mmol/L (3.5-5.1); Sodium Level 141 mmol/L (136-145)
[2020-09-12 14:31] LABS: International Normalized Ratio 1.7
== END 2020-09-12 18:00 | disposition home or self-care (01) ==
LOC: LAB 11:59
PROVIDERS: Family Provider Internal Medicine; PCP Internal Medicine; Referring Provider Internal Medicine; Visit Provider Internal Medicine
DX: I82.90 Acute embolism and thrombosis of unspecified vein (principal); Z79.01 Long term (current) use of anticoagulants; E55.9 Vitamin D deficiency, unspecified; N18.5 Chronic kidney disease, stage 5; N25.81 Secondary hyperparathyroidism of renal origin
CPT/HCPCS: 36415; 80048; 82306; 83970; 85027; 85610

== ENCOUNTER 2020-10-06 13:03 | Outpatient (RCR) | payer MEDICARE, OTHER, MEDICAID, SELFPAY ==
[2020-09-28 15:43] LABS: Prothrombin Time Fingerstick 21.7 SEC (11.9-14.4)
[2020-10-06 13:10] LABS: Prothrombin Time Fingerstick 19.8 SEC (11.9-14.4)
== END 2020-10-06 18:00 | disposition home or self-care (01) ==
LOC: LAB 13:03
PROVIDERS: Family Provider Internal Medicine; PCP Internal Medicine; Referring Provider Internal Medicine; Visit Provider Internal Medicine
DX: I82.90 Acute embolism and thrombosis of unspecified vein (principal); Z79.01 Long term (current) use of anticoagulants
CPT/HCPCS: 36416; 85610

== ENCOUNTER 2020-11-14 10:25 | Outpatient (RCR) | payer MEDICARE, OTHER, MEDICAID, SELFPAY ==
[2020-10-28 12:45] LABS: Prothrombin Time Fingerstick 26.5 SEC (11.9-14.4)
[2020-11-14 10:41] LABS: Prothrombin Time Fingerstick 22.8 SEC (11.9-14.4)
== END 2020-11-14 18:00 | disposition home or self-care (01) ==
LOC: LAB 10:25
PROVIDERS: Family Provider Internal Medicine; PCP Internal Medicine; Referring Provider Internal Medicine; Visit Provider Internal Medicine
DX: I82.90 Acute embolism and thrombosis of unspecified vein (principal); Z79.01 Long term (current) use of anticoagulants
CPT/HCPCS: 36416; 85610

== ENCOUNTER → 2020-11-17 14:32 | Outpatient (CLI) | payer MEDICARE, OTHER, MEDICAID, SELFPAY ==
[2020-11-17 17:24] LABS: SARS-COV-2 TOTAL ABS Nonreactive (Nonreactive)
== END ==
PROVIDERS: PCP Internal Medicine; Visit Provider Internal Medicine
DX: Z20.828 Contact with and (suspected) exposure to other viral communicable diseases (principal); J06.9 Acute upper respiratory infection, unspecified
CPT/HCPCS: 36415; 86769

== ENCOUNTER 2021-01-13 14:21 | Outpatient (RCR) | payer MEDICARE, OTHER, MEDICAID, SELFPAY ==
[2021-01-13 15:23] LABS: Hematocrit 40.9 % (37-47); Hemoglobin 12.7 g/dL (12.0-15.0); Mean Corp Hgb Conc 31.1 g/dL (32-36); Mean Corpuscular Hgb 29.5 pg (27.0-32.0); Mean Corpuscular Volume 95.1 fL (81-99); Mean Platelet Vol. 11.1 fl (6.2-12.0); Platelet Count 182 K/mm3 (150-450); RBC Distribution Width SD 48.5 fl (35.1-43.9); White Blood Count 15.9 K/mm3 (4.4-11.0)
[2021-01-13 15:37] LABS: International Normalized Ratio 1.3; Prothrombin Time (Protime)PT. 15.4 SECONDS (11.7-14.9)
[2021-01-13 15:44] LABS: Hemoglobin A1c 6.1 % (3.8-5.6)
[2021-01-13 16:16] LABS: Anion Gap 9 (5-15); BUN 32 mg/dL (7-18); BUN/Creat Ratio 24.2 RATIO (10-20); Calcium,Total 8.3 mg/dL (8.5-10.1); Chloride 104 mmol/L (98-107); Creatinine, Serum 1.32 mg/dL (0.55-1.02); EST Glomerular Filtration Rate 41 mL/min (>60); Est Glom Filt Rate - Afr Amer 50 mL/min (>60); Glucose 188 mg/dL (74-106); Potassium 3.9 mmol/L (3.5-5.1); Sodium Level 138 mmol/L (136-145)
== END 2021-01-13 18:00 | disposition home or self-care (01) ==
LOC: LAB 14:21
PROVIDERS: Family Provider Internal Medicine; PCP Internal Medicine; Referring Provider Internal Medicine; Visit Provider Internal Medicine
DX: I82.90 Acute embolism and thrombosis of unspecified vein (principal); Z79.01 Long term (current) use of anticoagulants; E11.22 Type 2 diabetes mellitus with diabetic chronic kidney disease; N18.9 Chronic kidney disease, unspecified
CPT/HCPCS: 36415; 80048; 83036; 85027; 85610

== ENCOUNTER 2021-02-05 12:21 | Outpatient (RCR) | payer MEDICARE, OTHER, MEDICAID, SELFPAY ==
[2021-01-29 13:20] LABS: INR Fingerstick 1.5; Prothrombin Time Fingerstick 17.6 SEC (11.9-14.4)
[2021-02-06 15:11] LABS: INR Fingerstick 1.8
== END 2021-02-05 18:00 | disposition home or self-care (01) ==
LOC: LAB 12:21
PROVIDERS: Family Provider Internal Medicine; PCP Internal Medicine; Referring Provider Internal Medicine; Visit Provider Internal Medicine
DX: Z79.01 Long term (current) use of anticoagulants (principal)
CPT/HCPCS: 36416; 85610

== ENCOUNTER 2021-04-09 11:01 | Outpatient (RCR) | payer MEDICARE, OTHER, MEDICAID, SELFPAY ==
[2021-03-31 13:12] VITALS: BMI 14.6
[2021-04-09 11:10] LABS: INR Fingerstick 2.2; Prothrombin Time Fingerstick 25.3 SEC (11.9-14.4)
== END 2021-04-09 18:00 | disposition home or self-care (01) ==
LOC: LAB 11:01
PROVIDERS: Family Provider Internal Medicine; PCP Internal Medicine; Referring Provider Internal Medicine; Visit Provider Internal Medicine
DX: Z79.01 Long term (current) use of anticoagulants (principal)
CPT/HCPCS: 36416; 85610

== ENCOUNTER 2021-05-07 12:12 | Outpatient (RCR) | payer MEDICARE, OTHER, MEDICAID, SELFPAY ==
[2021-03-31 13:12] VITALS: BMI 14.6
[2021-05-07 13:19] LABS: Hematocrit 43.2 % (37-47); Hemoglobin 13.7 g/dL (12.0-15.0); Mean Corp Hgb Conc 31.7 g/dL (32-36); Mean Corpuscular Hgb 30.1 pg (27.0-32.0); Mean Corpuscular Volume 94.9 fL (81-99); Mean Platelet Vol. 10.8 fl (6.2-12.0); Platelet Count 180 K/mm3 (150-450); RBC Distribution Width CV 12.9 % (11.6-14.6); RBC Distribution Width SD 45.1 fl (35.1-43.9); Red Blood Count 4.55 M/mm3 (4.2-5.4); White Blood Count 14.4 K/mm3 (4.4-11.0)
[2021-05-07 13:29] LABS: International Normalized Ratio 2.5; Prothrombin Time (Protime)PT. 26.5 SECONDS (11.7-14.9)
[2021-05-07 13:46] LABS: Hemoglobin A1c 6.6 % (3.8-5.6)
[2021-05-07 13:51] LABS: Vitamin D,25 Hydroxy 15.3 ng/mL
[2021-05-07 13:56] LABS: Anion Gap 7 (5-15); BUN 34 mg/dL (7-18); BUN/Creat Ratio 17.3 RATIO (10-20); Calcium,Total 8.3 mg/dL (8.5-10.1); Chloride 105 mmol/L (98-107); Creatinine, Serum 1.96 mg/dL (0.55-1.02); EST Glomerular Filtration Rate 26 mL/min (>60); Est Glom Filt Rate - Afr Amer 32 mL/min (>60); Glucose 185 mg/dL (74-106); Potassium 4.2 mmol/L (3.5-5.1); Sodium Level 135 mmol/L (136-145); Thyroid Stim Hormone (TSH) 1.17 uIU/mL (0.358-3.74)
[2021-05-07 14:08] LABS: PTHIN 156.3 pg/mL (18.4-80.1)
== END 2021-05-07 18:00 | disposition home or self-care (01) ==
LOC: LAB 12:12
PROVIDERS: Family Provider Internal Medicine; PCP Internal Medicine; Referring Provider Internal Medicine; Visit Provider Internal Medicine
DX: Z79.01 Long term (current) use of anticoagulants (principal); E11.22 Type 2 diabetes mellitus with diabetic chronic kidney disease; N18.4 Chronic kidney disease, stage 4 (severe); N25.81 Secondary hyperparathyroidism of renal origin
CPT/HCPCS: 36415; 80048; 82306; 83036; 83970; 84443; 85027; 85610

== ENCOUNTER 2021-07-13 13:13 | Outpatient (RCR) | payer MEDICARE, OTHER, MEDICAID, SELFPAY ==
[2021-03-31 13:12] VITALS: BMI 14.6
[2021-07-13 13:25] LABS: INR Fingerstick 2.8; Prothrombin Time Fingerstick 31.4 SEC (11.9-14.4)
== END 2021-07-13 18:00 | disposition home or self-care (01) ==
LOC: LAB 13:13
PROVIDERS: Family Provider Internal Medicine; PCP Internal Medicine; Referring Provider Internal Medicine; Visit Provider Internal Medicine
DX: Z79.01 Long term (current) use of anticoagulants (principal)
CPT/HCPCS: 36416; 85610

== ENCOUNTER 2021-08-13 11:07 | Outpatient (RCR) | payer MEDICARE, OTHER, MEDICAID, SELFPAY ==
[2021-07-23 20:43] VITALS: BMI 14.6
[2021-08-06 12:02] LABS: International Normalized Ratio 4.4; Prothrombin Time (Protime)PT. 41.2 SECONDS (11.7-14.9)
[2021-08-13 12:06] LABS: INR Fingerstick 1.7; Prothrombin Time Fingerstick 19.2 SEC (11.9-14.4)
== END 2021-08-23 19:46 | disposition home or self-care (01) ==
LOC: LAB 11:07
PROVIDERS: Family Provider Internal Medicine; PCP Internal Medicine; Referring Provider Internal Medicine; Visit Provider Internal Medicine
DX: Z79.01 Long term (current) use of anticoagulants (principal)
CPT/HCPCS: 36415; 36416; 85610

== ENCOUNTER 2021-09-18 10:04 | Emergency (ER) | payer MEDICARE, OTHER, MEDICAID, SELFPAY ==
[2021-09-18 10:05] VITALS: BP 108/60; PULSE 82; RESP 18; TEMP 36.6; O2SAT 98; BMI 15.7
[2021-09-18 10:52] VITALS: BP 108/60; PULSE 82; RESP 18; TEMP 36.6; O2SAT 98
--- NOTE | 2021-09-18 10:56 | RAD_ITS ---
STUDY: X-RAY - LEFT WRIST REASON FOR EXAM: Female, 81 years old. pain TECHNIQUE: 3 view(s) of the wrist were obtained. COMPARISON: None. FINDINGS: There is demineralization of the radius and ulna. There is degenerative arthrosis of the radiocarpal articulation. There is degenerative arthrosis of the distal radioulnar articulation. Normal carpal bones. There is widening of the scapholunate articulation suggesting a sprain of the scapholunate interosseous ligament. Chondrocalcinosis noted. Linear ossification of the lateral medial wrist may be sequela of previous injury. There is degenerative arthrosis of the carpometacarpal articulation of the thumb. Normal second through fifth carpometacarpal articulations. Normal visualized metacarpal bones. The soft tissue structures are unremarkable. RAD/Wrist min 3 Views IMPRESSION: 1. No demonstrated fracture or malalignment. 2. Degenerative changes of the wrist, as above. Chondrocalcinosis. Query CPPD. Electronically Signed: Roque Cain MD (Brooks) at 12:08 EST , Service support ,
--- NOTE | 2021-09-18 10:56 | RAD_ITS ---
STUDY: X-RAY CHEST REASON FOR EXAM: Female, 81 years old. cough sob TECHNIQUE: PA and lateral views of the chest. COMPARISON: 04/11/2020 FINDINGS: Right jugular dialysis catheter has been removed. There is hyperinflation of the lungs consistent with chronic obstructive lung disease (COPD). Chronic fibrotic changes similar. No airspace consolidation. There is no demonstrated pleural abnormality. Normal size heart. Normal mediastinum and aniya. Normal visualized pulmonary arteries. There is atherosclerotic calcification of the aortic arch with tortuosity. There is demineralization of the osseous structures. Normal visualized ribs, clavicles, and shoulders. There is no demonstrated abnormality of the visualized soft tissue structures of the upper abdomen. RAD/Chest PA and Lateral IMPRESSION: No airspace consolidation or pleural effusion. COPD. Electronically Signed: Roque Cain MD (Brooks) at 12:07 EST , Service support ,
--- NOTE | 2021-09-18 10:59 | EX.ED.UPPERE ---
HPI History of Present Illness Chief Complaint: Upper Extremity Injury Informant: patient Onset/Context/Timing Onset: Yesterday Context: Sudden Onset Timing: Continuous Quality of Pain: Throbbing Location: L wrist Current Severity: Severe Maximum Severity: Severe Worsened by: any movement Relieved by: remaining still Associated Symptoms Associated Symptoms: Positive for Loss of Funtion (can't move due to pain); Negative for Parasthesia and Weakness Narrative Narrative: Patient presenting for left wrist pain mainly. She states she noticed it when she went to turn a doorknob yesterday and it suddenly hurt severely and has been hurting bad ever since. She denies any injury or falls. Now it is swollen and red and extremely painful she cannot move it at all including pronation/supination. Left hand dominant. Had a remote history of gout years ago in one of her feet, but she does not deal with that often and has not had it since. Also she states she has been having a COPD flareup lately for about the past week, increased cough and sputum production no fevers or chills, increased wheezing helped with her albuterol rescue inhaler which she used just prior to coming here. She just took the last Zithromax pill this morning in the last pill of her Medrol Dosepak this morning. She is on warfarin for history of a DVT. She is also diabetic. [facility] Medical History (Updated 09/18/21 @ 13:[address] 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 Stage 1 mild COPD by GOLD classification Tobacco abuse Home Medications omeprazole 20 mg PO DAILY 12/30/14 [History Last Taken 01/17/19] atenolol 25 mg tablet 12.5 mg PO DAILY 08/28/18 [History Last Taken 01/17/19] simvastatin 20 mg PO DAILY 12/24/18 [History Last Taken 01/17/19] warfarin 5 mg PO SUMOWEFRSA 01/17/19 [History Last Taken 01/16/19] colesevelam 625 mg tablet 1,875 mg PO BID 12/13/19 [History Last Taken Unknown] glimepiride 0.5 mg PO DAILY 04/09/20 [History Last Taken Unknown] warfarin 2.5 mg PO TUTH 04/09/20 [History Last Taken Unknown] albuterol sulfate 2 puff INHALATION Q4H PRN PRN #2 inhaler 04/14/20 [Rx Last Taken Unknown] acetaminophen 650 mg PO BID 05/02/20 [History Last Taken Unknown] azithromycin 250 mg tablet 250 mg PO MOWEFR #12 tab 07/29/20 [Rx Last Taken Unknown] methylprednisolone 4 mg tablets in a dose pack See Rx Instructions PO PER PKG DIR #21 tab 07/29/20 [Rx Last Taken Unknown] tiotropium bromide 2.5 mcg/actuation mist for inhalation 1 puff INHALATION DAILY #4 g 07/29/20 [Rx Last Taken Unknown] methylprednisolone 4 mg tablets in a dose pack See Rx Instructions PO PER PKG DIR #21 tab 11/26/20 [Rx Last Taken Unknown] mometasone-formoterol HFA 200 mcg-5 mcg/actuation aerosol inhaler 2 inh INHALATION BID #3 ea 11/26/20 [Rx Last Taken Unknown] prednisone 5 mg tablet 5 mg PO DAILY 03/31/21 [History Last Taken Unknown] hydrocodone-acetaminophen 1 tab PO Q4H PRN PRN 2 Days #10 tablet 09/18/21 [Rx Last Taken Unknown] prednisone 10 mg PO UD #33 tab 09/18/21 [Rx Last Taken Unknown] Allergy/AdvReac Type Severity Reaction Status Date / Time diltiazem HCl [From Cardizem] Allergy Angioedema Verified 09/18/21 10:07 fluticasone furoate Allergy PT UNSURE Verified 09/18/21 10:07 [From Breo Ellipta] OF REACTION gatifloxacin [From Tequin] Allergy Unknown Verified 09/18/21 10:07 hydrochlorothiazide Allergy Other Verified 09/18/21 10:07 [From Maxzide] Penicillins [PCN] Allergy Hives Verified 09/18/21 10:07 triamterene [From Maxzide] Allergy Other Verified 09/18/21 10:07 vilanterol Allergy PT UNSURE Verified 09/18/21 10:07 [From Breo Ellipta] OF REACTION codeine AdvReac Upset Verified 09/18/21 10:07 Stomach Family History (Reviewed 03/31/21 @ 13:26 by Nida Neely [employer], [employer]-C) Father Diabetes Lung cancer Mother Heart disease Hypertension Surgical History History of appendectomy History of hysterectomy History of skin graft Status post insertion of dialysis catheter Social History Smoking Status: Current every day smoker tobacco type: cigarettes second hand exposure: Yes alcohol intake: never substance use type: does not use caffeine: Yes what type of physical activity do you participate in: none ROS ROS ED Constitutional Constitutional ED: Denies chills or fever(s) Eyes Eyes: Denies change in vision or diplopia ENT ENT ED: Denies rhinorrhea or sore throat Cardiovascular Cardiovascular: Denies chest pain or palpitations Respiratory/Chest Respiratory/Chest: Reports as per HPI, cough, dyspnea and wheezing Gastrointestinal Gastrointestinal: Denies abdominal pain, diarrhea, nausea or vomiting Genitourinary Genitourinary ED: Denies dysuria or hematuria Musculoskeletal Musculoskeletal: Reports as per HPI and extremity pain; Denies back pain or neck pain Integumentary Denies abscess or rash Neurologic Neurologic: Denies headache(s), paresthesias or weakness Psychiatric Psychiatric: Denies anxiety or suicidal thoughts EXAM Physical Exam Const Vital Signs: 09/18/21 10:05 09/18/21 10:52 Temperature 97.9 F 97.9 F Temperature Source Temporal Temporal Pulse Rate 82 82 Respiratory Rate 18 18 Blood Pressure 108/60 108/60 Blood Pressure Mean 76 76 Pulse Ox 98 98 Oxygen Delivery Method Room Air Room Air Positive well nourished and well developed General Appearance ED: well developed and NAD HEENT Reports moist mucous membranes normocephalic and atraumatic Eyes PERRL and EOMs intact bilaterally Neck full ROM and supple Resp normal respiratory effort and clear to auscultation bilaterally Resp Narrative: Very diminished breath sounds throughout, and symmetric with trachea midline Cardio regular rate, regular rhythm and no murmurs Rate: Negative for tachycardic GI non-tender and non-distended Auscultation: normoactive bowel sounds Palpation: soft Back/Spine no CVA tenderness General Back: other FROM Extremity Extremity Narrative: Left wrist unable to be moved by the patient. Very limited range of motion in all directions including pronation/supination. On the dorsum it is erythematous and warm and extremely tender just to superficial touch. There is no lymphangitis or abscess. There is no nidus for infection obvious on the skin to exam. At the volar aspect, it is almost ecchymotic. Does not extend further to the hand or fingers, but limited range of motion of the fingers due to pain in the wrist as well. Full range of motion of the elbow, shoulder, and elsewhere no other joints appear to be affected. General Extremety ED: Yes tenderness; Negative for edema or pulses abnormal General Extremity: Negative for edema or pulses abnormal Neuro oriented x3, CN's II-XII intact bilaterally and no sensory deficits noted Sensorium / Orientation: awake and alert Motor Exam: strength 5/5 throughout Skin no rashes or lesions noted and no wounds MDM MDM MDM Narrative Medical decision making narrative: Differential here includes traumatic hemarthrosis from the maneuver she did yesterday versus septic arthritis versus crystal induced arthritis, this is not an exclusive list. As I discussed with the patient, definitive testing to determine 1 versus the other would include an arthrocentesis for cell count, culture, crystals at least. Unfortunately, her INR is 4.0, begin making a bedside arthrocentesis a risky procedure since it can cause a hemarthrosis that the patient may already have. Blood cultures were sent. Chest x-ray shows no infiltrate, her Covid is negative. She does have a leukocytosis of 15.3 but she has been on prednisone recently which could be affecting/causing that. Her uric acid is high and her lactate is within normal limits. I discussed with Dr. Thapa who agrees that not doing arthrocentesis now would be the correct move. He would advise treating the patient like this is crystal induced arthritis with a repeat course of prednisone, which I agree is more likely here than a septic arthritis, especially since the patient does have severe arthritis of the wrist that is affected based on the x-ray, and if she does get worse over the weekend on prednisone, holding Coumadin and having a repeat INR done on Tuesday would make it easier for him to perform an arthrocentesis in the office if the patient follows up. I will advised the patient hold her warfarin, will prescribe her [place] and give her a Velcro wrist splint all to help with the pain in addition to the prednisone. Discussed with patient and her daughter they are comfortable with that overall plan. Lab Data Attestation: I reviewed the patient's lab results. Labs: Laboratory Tests 09/18/21 09/18/21 09/18/21 Range/Units 11:14 11:10 11:10 WBC (4.4-11.0) K/mm3 RBC (4.2-5.4) M/mm3 Hgb (12.0-15.0) g/dL Hct (37-47) % MCV (81-99) fL MCH (27.0-32.0) pg MCHC (32-36) g/dL RDW Std Deviation (35.1-43.9) fl RDW Coeff of Loy (11.6-14.6) % Plt Count (150-450) K/mm3 MPV (6.2-12.0) fl Immature Gran % (Auto) (0.0-0.9) % Neut % (Auto) (47-70) % Lymph % (Auto) (19-41) % Atkinson % (Auto) (0-10) % Eos % (Auto) (0-5) % Baso % (Auto) (0-1) % Absolute Neuts (auto) (2.0-7.7) X10^3/uL Absolute Lymphs (auto) (0.83-4.51) X10^3/uL Nucleated RBC % (0-5) % PT 38.1 H (11.7-14.9) SECONDS INR 4.0 H* Sodium 139 (136-145) mmol/L Potassium 4.1 (3.5-5.1) mmol/L Chloride 102 (98-107) mmol/L Carbon Dioxide 28.0 (21.0-32.0) mmol/L Anion Gap 9 (5-15) BUN 41 H (7-18) mg/dL Creatinine 2.10 H (0.55-1.02) mg/dL Estim Creat Clear Calc 14.53 ml/min Est GFR (MDRD) Af Amer 29 L (>60) mL/min Est GFR (MDRD) Non-Af 24 L (>60) mL/min BUN/Creatinine Ratio 19.5 (10-20) RATIO Glucose 187 H (74-106) mg/dL Lactic Acid 1.2 (0.4-1.9) mmol/L Uric Acid 8.5 H (2.6-6.0) mg/dL Calcium 7.9 L (8.5-10.1) mg/dL Troponin I High Sens 31 (3.0-54.0) pg/mL 09/18/21 Range/Units 11:10 WBC 15.3 H (4.4-11.0) K/mm3 RBC 4.33 (4.2-5.4) M/mm3 Hgb 13.2 (12.0-15.0) g/dL Hct 41.3 (37-47) % MCV 95.4 (81-99) fL MCH 30.5 (27.0-32.0) pg MCHC 32.0 (32-36) g/dL RDW Std Deviation 49.7 H (35.1-43.9) fl RDW Coeff of Oly 14.2 (11.6-14.6) % Plt Count 157 (150-450) K/mm3 MPV 10.6 (6.2-12.0) fl Immature Gran % (Auto) 0.400 (0.0-0.9) % Neut % (Auto) 84.9 H (47-70) % Lymph % (Auto) 7.9 L (19-41) % Atkinson % (Auto) 6.3 (0-10) % Eos % (Auto) 0.3 (0-5) % Baso % (Auto) 0.2 (0-1) % Absolute Neuts (auto) 13.0 H (2.0-7.7) X10^3/uL Absolute Lymphs (auto) 1.21 (0.83-4.51) X10^3/uL Nucleated RBC % 0 (0-5) % PT (11.7-14.9) SECONDS INR Sodium (136-145) mmol/L Potassium (3.5-5.1) mmol/L Chloride (98-107) mmol/L Carbon Dioxide (21.0-32.0) mmol/L Anion Gap (5-15) BUN (7-18) mg/dL Creatinine (0.55-1.02) mg/dL Estim Creat Clear Calc ml/min Est GFR (MDRD) Af Amer (>60) mL/min Est GFR (MDRD) Non-Af (>60) mL/min BUN/Creatinine Ratio (10-20) RATIO Glucose (74-106) mg/dL Lactic Acid (0.4-1.9) mmol/L Uric Acid (2.6-6.0) mg/dL Calcium (8.5-10.1) mg/dL Troponin I High Sens (3.0-54.0) pg/mL Discharge Plan Triage Chief Complaint: Upper Extremity Injury ED Provider: Evert Aguirre Dx/Rx/DC Orders Clinical Impression: Arthritis of wrist, left, Supratherapeutic INR, Asthma exacerbation in COPD Instructions: Eating to Prevent Gout, ED Gout Prescriptions: New hydrocodone-acetaminophen [hydrocodone-acetaminophen] 1 TABLET tablet 1 tab PO Q4H PRN PRN (Reason: Pain) 2 Days Qty: 10 RF: 0 prednisone 10 MG tablet 10 mg PO UD Qty: 33 RF: 0 No Action atenolol 25 mg tablet 12.5 mg PO DAILY RF: 0 colesevelam [WelChol] 625 mg tablet 1,875 mg PO BID RF: 0 tiotropium bromide 2.5 mcg/actuation mist 1 puff inhalation DAILY Qty: 4 RF: 2 azithromycin 250 mg tablet 250 mg PO MOWEFR Qty: 12 RF: 2 methylprednisolone [Medrol (Mando)] 4 mg tablets,dose pack See Rx Instructions PO PER PKG DIR Qty: 21 RF: 0 Dulera 200-5 mcg/actuation HFA aerosol inhaler 2 inh inhalation BID Qty: 3 RF: 3 methylprednisolone [Medrol (Mando)] 4 mg tablets,dose pack See Rx Instructions PO PER PKG DIR Qty: 21 RF: 0 prednisone 5 mg tablet 5 mg PO DAILY RF: 0 omeprazole 20 MG capsule 20 mg PO DAILY RF: 0 simvastatin 20 MG tablet 20 mg PO DAILY RF: 0 warfarin 5 MG tablet 5 mg PO SUMOWEFRSA RF: 0 warfarin 2.5 MG tablet 2.5 mg PO TUTH RF: 0 glimepiride 1 MG tablet 0.5 mg PO DAILY RF: 0 albuterol sulfate 1 PUFF inhaler 2 puff inhalation Q4H PRN PRN (Reason: Sob &/Or Wheezing) Qty: 2 RF: 0 acetaminophen 650 MG tablet extended release 650 mg PO BID RF: 0 Primary Care Provider: Yudith Rosales Referrals: Yudith Rosales DO [Primary Care Provider] - Ranjith Thapa [STAFF PHYSICIAN] - (Call for an appointment to be seen as soon as possible after the weekend, after you have your Tuesday INR recheck) Activity Restrictions/Additional Instructions: -Your INR is 4.0; hold your Coumadin until told otherwise, get your INR rechecked on Tuesday, 09/21 -Use the splint and prescription [place] as needed for pain -Take the prednisone as prescribed, still replacing your daily 5 mg like you have been recently -You are still on the antibiotic, which will stay in your system for another 5 days even though you finished the pills Disposition Disposition: Home, Self Care
[2021-09-18 11:21] VITALS: BP 108/60; PULSE 82; RESP 18; TEMP 36.6; O2SAT 98
[2021-09-18 11:28] LABS: Absolute Lymphocyte Count 1.21 X10^3/uL (0.83-4.51); Basophil# 0.03 X10^3/uL; Basophil% 0.2 % (0-1); Eosinophil# 0.04 X10^3/uL; Eosinophils% 0.3 % (0-5); Hematocrit 41.3 % (37-47); Hemoglobin 13.2 g/dL (12.0-15.0); Lymphocyte # 1.21 X10^3/ul (0.83-4.51); Lymphocyte % 7.9 % (19-41); Mean Corpuscular Hgb 30.5 pg (27.0-32.0); Mean Corpuscular Volume 95.4 fL (81-99); Mean Platelet Vol. 10.6 fl (6.2-12.0); Monocyte# 0.96 X10^3/uL; Monocyte% 6.3 % (0-10); NRBC Flagged by Analyzer 0 % (0-5); Neutrophil # 12.98 X10^3/uL (2.7-7.7); Neutrophil % 84.9 % (47-70); Platelet Count 157 K/mm3 (150-450); RBC Distribution Width CV 14.2 % (11.6-14.6); RBC Distribution Width SD 49.7 fl (35.1-43.9); Red Blood Count 4.33 M/mm3 (4.2-5.4); White Blood Count 15.3 K/mm3 (4.4-11.0)
[2021-09-18] MEDS: Ondansetron 4 MG/2 ML Vial IV (11:36)
[2021-09-18] MEDS: Morphine 4 MG/ML Syringe IV (11:36)
[2021-09-18 11:40] LABS: Prothrombin Time (Protime)PT. 38.1 SECONDS (11.7-14.9)
[2021-09-18 11:49] LABS: Anion Gap 9 (5-15); BUN 41 mg/dL (7-18); BUN/Creat Ratio 19.5 RATIO (10-20); Calcium,Total 7.9 mg/dL (8.5-10.1); Chloride 102 mmol/L (98-107); EST Glomerular Filtration Rate 24 mL/min (>60); Est Glom Filt Rate - Afr Amer 29 mL/min (>60); Estimated Creatinine Clearance 14.53 ml/min; Glucose 187 mg/dL (74-106); Potassium 4.1 mmol/L (3.5-5.1); Sodium Level 139 mmol/L (136-145); Troponin-I HS 31 pg/mL (3.0-54.0); Uric Acid 8.5 mg/dL (2.6-6.0)
[2021-09-18 12:03] LABS: Lactic Acid 1.2 mmol/L (0.4-1.9)
[2021-09-18 12:38] VITALS: BP 150/67; PULSE 76; RESP 15; TEMP 36.6; O2SAT 96
[2021-09-18] MEDS: predniSONE 20 MG Tablet 40 MG PO (13:18)
[2021-09-18 13:46] VITALS: BP 148/77; PULSE 62; RESP 15; O2SAT 97
[2021-09-18 14:10] LABS: CRP < 2.90 mg/L (0.0-3.0)
[2021-09-18 14:27] LABS: Erythrocyte Sedimentation Rate 3 mm/hr (0-30)
== END 2021-09-18 13:48 | disposition home or self-care (01) ==
PROVIDERS: Emergency Provider Emergency Medicine; PCP Internal Medicine
DX: M19.032 Primary osteoarthritis, left wrist (principal); R79.1 Abnormal coagulation profile; J44.1 Chronic obstructive pulmonary disease with (acute) exacerbation; F17.210 Nicotine dependence, cigarettes, uncomplicated; K21.9 Gastro-esophageal reflux disease without esophagitis; I12.0 Hypertensive chronic kidney disease with stage 5 chronic kidney disease or end stage renal disease; E11.22 Type 2 diabetes mellitus with diabetic chronic kidney disease; N18.5 Chronic kidney disease, stage 5; E78.49 Other hyperlipidemia; Z86.718 Personal history of other venous thrombosis and embolism; Z79.899 Other long term (current) drug therapy; Z79.52 Long term (current) use of systemic steroids; Z79.51 Long term (current) use of inhaled steroids; Z79.01 Long term (current) use of anticoagulants
CPT/HCPCS: 71046; 73110; 80048; 83605; 84484; 84550; 85025; 85610; 85652; 86140; 87040; 87426; 96374; 96375; 99285; A4216; J2405

== ENCOUNTER 2021-09-21 12:25 | Outpatient (RCR) | payer MEDICARE, OTHER, MEDICAID, SELFPAY ==
[2021-08-23 19:46] VITALS: BMI 14.6
[2021-09-04 12:46] LABS: Hematocrit 38.1 % (37-47); Hemoglobin 12.1 g/dL (12.0-15.0); Mean Corp Hgb Conc 31.8 g/dL (32-36); Mean Corpuscular Hgb 30.1 pg (27.0-32.0); Mean Corpuscular Volume 94.8 fL (81-99); Mean Platelet Vol. 10.8 fl (6.2-12.0); Platelet Count 176 K/mm3 (150-450); RBC Distribution Width CV 13.5 % (11.6-14.6); Red Blood Count 4.02 M/mm3 (4.2-5.4)
[2021-09-04 12:51] LABS: International Normalized Ratio 2.6; Prothrombin Time (Protime)PT. 26.9 SECONDS (11.7-14.9)
[2021-09-04 13:03] LABS: Hemoglobin A1c 6.7 % (3.8-5.6)
[2021-09-04 13:10] LABS: Albumin, Serum 3.4 g/dL (3.2-5.0); BUN 28 mg/dL (7-18); BUN/Creat Ratio 17.2 RATIO (10-20); Calcium,Total 8.8 mg/dL (8.5-10.1); Chloride 105 mmol/L (98-107); Creatinine, Serum 1.63 mg/dL (0.55-1.02); EST Glomerular Filtration Rate 32 mL/min (>60); Est Glom Filt Rate - Afr Amer 39 mL/min (>60); Glucose 210 mg/dL (74-106); Phosphorus 2.9 mg/dL (2.5-4.9); Potassium 4.4 mmol/L (3.5-5.1); Sodium Level 137 mmol/L (136-145)
[2021-09-04 13:11] LABS: PTHIN 123.5 pg/mL (18.4-80.1)
[2021-09-04 13:14] LABS: Vitamin D,25 Hydroxy 97.4 ng/mL
[2021-09-21 12:40] LABS: INR Fingerstick 2.9
== END 2021-09-22 18:00 | disposition home or self-care (01) ==
LOC: LAB 12:25
PROVIDERS: Family Provider Internal Medicine; PCP Internal Medicine; Referring Provider Internal Medicine; Visit Provider Internal Medicine
DX: E11.22 Type 2 diabetes mellitus with diabetic chronic kidney disease (principal); N18.4 Chronic kidney disease, stage 4 (severe); N25.81 Secondary hyperparathyroidism of renal origin; Z79.01 Long term (current) use of anticoagulants
CPT/HCPCS: 36415; 36416; 80069; 82306; 83036; 83970; 85027; 85610

== ENCOUNTER 2021-10-12 10:42 | Outpatient (RCR) | payer MEDICARE, OTHER, MEDICAID, SELFPAY ==
[2021-09-23 03:23] VITALS: BMI 14.6
[2021-10-12 11:00] LABS: INR Fingerstick 3.9; Prothrombin Time Fingerstick 42.3 SEC (11.9-14.4)
[2021-10-12 11:17] LABS: International Normalized Ratio 3.7; Prothrombin Time (Protime)PT. 35.9 SECONDS (11.7-14.9)
== END 2021-10-24 18:00 | disposition home or self-care (01) ==
LOC: LAB 10:42
PROVIDERS: Family Provider Internal Medicine; PCP Internal Medicine; Referring Provider Internal Medicine; Visit Provider Internal Medicine
DX: Z79.01 Long term (current) use of anticoagulants (principal)
CPT/HCPCS: 36415; 36416; 85610

== ENCOUNTER 2021-12-09 12:34 | Outpatient (RCR) | payer MEDICARE, MEDICAID, SELFPAY ==
[2021-10-25 04:17] VITALS: BMI 14.6
[2021-11-30 12:41] LABS: INR Fingerstick 3.4; Prothrombin Time Fingerstick 38.4 SEC (11.9-14.4)
[2021-12-09 12:51] LABS: INR Fingerstick 1.8; Prothrombin Time Fingerstick 21.4 SEC (11.9-14.4)
== END 2021-12-09 23:59 | disposition home or self-care (01) ==
LOC: LAB 12:34
PROVIDERS: Family Provider Internal Medicine; PCP Internal Medicine; Referring Provider Internal Medicine; Visit Provider Internal Medicine
DX: I82.90 Acute embolism and thrombosis of unspecified vein (principal); I82.509 Chronic embolism and thrombosis of unspecified deep veins of unspecified lower extremity; Z79.01 Long term (current) use of anticoagulants
CPT/HCPCS: 36416; 85610

== ENCOUNTER 2022-01-18 11:46 | Observation (INO) | payer MEDICARE, OTHER, MEDICAID, SELFPAY ==
[2022-01-18] VITALS (7 sets, daily range): BP systolic 115–135; BP diastolic 59–105; PULSE 90–96; RESP 15–22; TEMP 36.6–36.9; O2SAT 95–98; BMI 15.0; BMI 13.6
--- NOTE | 2022-01-18 12:20 | EKG12_ITS ---
Test Reason : COLD S/X Blood Pressure : / mmHG Vent. Rate : 092 BPM Atrial Rate : 086 BPM P-R Int : 000 ms QRS Dur : 104 ms QT Int : 380 ms P-R-T Axes : 000 070 248 degrees QTc Int : 469 ms Normal sinus rhythm Left ventricular hypertrophy with repolarization abnormality Abnormal ECG Confirmed by REYMUNDO GARAY, YANELY ([id number]), fashion editor LUIS MENDEZ ([id number]) on 01/19/2022 10:27:26 AM Referred By: LIANNE Confirmed By:YANELY DWYER MD
--- NOTE | 2022-01-18 12:21 | ED.VIS.DYS ---
HPI History of Present Illness Chief Complaint: Shortness of Breath Informant: patient Onset/Context/Timing Onset: Days Context: gradual Current Severity: Mild Maximum Severity: Mild Worsened by: Nothing Relieved by: Nothing Associated Symptoms cough, fever and yellow sputum Chest Pain: Positive for None Narrative Narrative: 81-year-old female history of COPD not on home O2. Chronic kidney disease, diabetes, prior DVT on Coumadin. She has not felt well for about the last week she has had fever as high as 102.8. [place] generally weak. Short of breath with a cough of yellowish sputum. Denies any chest pain or hemoptysis. She was vaccinated and boosted against COVID. Denies any dysuria. No abdominal pain. PE Risk Factors: Positive for Prior DVT or PE; Negative for Cancer, OCP + Smoking + > 35, Recent immobilization, Recent surgery and Recent travel Prior similar symptoms: Yes Recent Illness/Hospitalization: No PFSH [facility] Medical History (Updated 01/18/22 @ 14:[address] 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 Stage 1 mild COPD by GOLD classification Tobacco abuse Home Medications omeprazole 20 mg PO DAILY 12/30/14 [History Last Taken 01/17/19] atenolol 25 mg tablet 12.5 mg PO DAILY 08/28/18 [History Last Taken 01/17/19] simvastatin 20 mg PO DAILY 12/24/18 [History Last Taken 01/17/19] colesevelam 625 mg tablet 1,875 mg PO BID 12/13/19 [History Last Taken Unknown] glimepiride 0.5 mg PO DAILY 04/09/20 [History Last Taken Unknown] albuterol sulfate 2 puff INHALATION Q4H PRN PRN #2 inhaler 04/14/20 [Rx Last Taken Unknown] acetaminophen 650 mg PO BID 05/02/20 [History Last Taken Unknown] azithromycin 250 mg tablet 250 mg PO MOWEFR #12 tab 07/29/20 [Rx Last Taken Unknown] tiotropium bromide 2.5 mcg/actuation mist for inhalation 1 puff INHALATION DAILY #4 g 10/06/20 [Rx Last Taken Unknown] prednisone 5 mg tablet 5 mg PO DAILY 03/31/21 [History Last Taken Unknown] mometasone-formoterol HFA 200 mcg-5 mcg/actuation aerosol inhaler 2 inh INHALATION BID #3 ea 10/13/21 [Rx Last Taken Unknown] amlodipine 5 mg tablet 5 mg PO DAILY tab 12/28/21 [History Last Taken Unknown] doxycycline hyclate 100 mg capsule 100 mg PO BID #14 cap 12/28/21 [Rx Last Taken Unknown] ergocalciferol (vitamin D2) 1,250 mcg (50,000 unit) capsule 50,000 unit PO QWEEK cap 12/28/21 [History Last Taken Unknown] prednisone 10 mg tablet 10 mg PO DAILY #20 tab 12/28/21 [Rx Last Taken Unknown] warfarin 2 mg tablet 2 mg PO DAILY tab 12/28/21 [History Last Taken Unknown] Allergy/AdvReac Type Severity Reaction Status Date / Time diltiazem HCl [From Cardizem] Allergy Angioedema Verified 01/18/22 11:48 fluticasone furoate Allergy PT UNSURE Verified 01/18/22 11:48 [From Breo Ellipta] OF REACTION gatifloxacin [From Tequin] Allergy Unknown Verified 01/18/22 11:48 hydrochlorothiazide Allergy Other Verified 01/18/22 11:48 [From Maxzide] Penicillins [PCN] Allergy Hives Verified 01/18/22 11:48 triamterene [From Maxzide] Allergy Other Verified 01/18/22 11:48 vilanterol Allergy PT UNSURE Verified 01/18/22 11:48 [From Breo Ellipta] OF REACTION codeine AdvReac Upset Verified 01/18/22 11:48 Stomach Family History Father Diabetes Lung cancer Mother Heart disease Hypertension Surgical History History of appendectomy History of hysterectomy History of skin graft Status post insertion of dialysis catheter Social History Smoking Status: Current every day smoker tobacco type: cigarettes second hand exposure: Yes alcohol intake: never substance use type: does not use caffeine: Yes what type of physical activity do you participate in: none ROS ROS ED ROS Narrative Fever. Cough. Weakness. Shortness of breath. Review of Systems ROS Unobtainable: Denies due to encephalopathy Constitutional Constitutional ED: Reports fever(s) Eyes Eyes: Denies change in vision ENT ENT ED: Denies ear pain, rhinorrhea or sore throat Cardiovascular Cardiovascular: Denies chest pain Respiratory/Chest Respiratory/Chest: Reports cough, dyspnea and sputum Gastrointestinal Gastrointestinal: Denies abdominal pain, diarrhea, nausea or vomiting Genitourinary Genitourinary ED: Denies dysuria Musculoskeletal Musculoskeletal: Denies myalgias Integumentary Denies rash Neurologic Neurologic: Denies headache(s) Psychiatric Psychiatric: Denies depression Endocrine Endocrinology: Denies polyuria Hematologic/Lymphatic Hematologic/Lymphatic: Denies easy bruising Allergic/Immunologic Allergic/Immunologic ED: Denies urticaria EXAM Physical Exam Narrative Exam Narrative: 81-year-old female no acute distress. Vital signs stable afebrile. Pulse ox 90% on room air. No distress. H EENT exam unremarkable. Moist mucous membranes. Neck nontender. No JVD. Lungs coarse breath sounds. Few scattered wheezes. No rhonchi or rales. Equal symmetrical. Heart regular rate and rhythm rate about 95 no murmur. Chest wall nontender. Abdomen soft nontender. Moving all 4 extremities. Calves nontender. No edema. No cords. Normal assistant therapy aide strength. Normal dorsi plantar flexion. Patient is very thin. That is her baseline. Neurologically she is awake and alert. Back nontender. Const Vital Signs: 01/18/22 11:49 01/18/22 12:16 01/18/22 12:31 Temperature 97.8 F Temperature Source Temporal Pulse Rate 96 92 Respiratory Rate 18 15 Respiratory Effort Normal Respiratory Depth Normal Respiratory Pattern Normal Blood Pressure 126/83 H 135/105 H Blood Pressure Mean 97 115 Pulse Ox 98 97 Oxygen Delivery Method Room Air Room Air Room Air 01/18/22 12:39 Temperature Temperature Source Pulse Rate 92 Respiratory Rate 22 H Respiratory Effort Respiratory Depth Respiratory Pattern Tachypnea Blood Pressure Blood Pressure Mean Pulse Ox Oxygen Delivery Method Positive well nourished and well developed; Negative for obese, cachectic, contractures or unkempt General Appearance ED: well developed and NAD; Negative for unkempt, cachectic, contractures or pallor Nutritional Appearance: Negative for cachectic or obese HEENT Reports moist mucous membranes atraumatic; Negative for trauma or tenderness Eyes PERRL and EOMs intact bilaterally Neck no lymphadenopathy, supple, no meningeal signs and no JVD General: Negative for tenderness Resp normal respiratory effort and No clear to auscultation bilaterally Effort and Inspection: Negative for pain with movement Auscultation: wheezes; Negative for rales, rhonchi or diminished lung sounds Cardio regular rate, regular rhythm, S1 normal heart sound, S2 normal heart sound and no murmurs GI non-tender, non-distended and no masses Auscultation: normoactive bowel sounds; Negative for hyperactive bowel sounds or hypoactive bowel sounds Palpation: soft; Negative for tender, guarding, hepatomegaly or rebound tenderness present Back/Spine no CVA tenderness and normal to inspection General Back: Negative for CVA tenderness or tenderness Extremity normal to inspection General Extremety ED: Negative for edema or tenderness General Extremity: Negative for edema Neuro oriented x3 Sensorium / Orientation: alert, oriented to person, oriented to place and oriented to time; Negative for orientation impaired, confused, lethargic or stuporous Motor Exam: strength 5/5 throughout Psych mental status grossly normal Appearance: Negative for unkempt Mood & Affect: Negative for depressed or tearful Thought Process: normal thought process Skin no wounds and skin turgor normal General Skin Exam: Negative for jaundice or pallor Lesions: no lesions Rashes: no rashes MDM MDM MDM Narrative Medical decision making narrative: 81-year-old female with COPD, cough and fever. Rule out bronchitis versus pneumonia versus Covid versus other etiologies. She has no other symptoms. She is generally weak. Screening labs, chest x-ray and Covid test are being obtained. Repeat exam at 2:15 PM patient's doing well. Minimal test results. Appears that she has a left lower lobe pneumonia. Lab Data Attestation: I reviewed the patient's lab results. Lab results narrative: CBC shows a white count 10.5. H&H 10.8 and 36. PT/INR 31 and 3.1 patient is on Coumadin. Electrolytes show a chloride of 108 a gap of 9 and a BUN 25 creatinine 1.65. Glucose 145. Her troponin is normal at 21. Lactic acid is elevated 2.2. Labs: Laboratory Results - last 24 hr 01/18/22 01/18/22 01/18/22 13:10 13:10 13:10 WBC 10.5 RBC 3.65 L Hgb 10.8 L Hct 36.0 L MCV 98.6 MCH 29.6 MCHC 30.0 L RDW Std Deviation 48.7 H RDW Coeff of Oly 13.5 Plt Count 202 MPV 10.2 Immature Gran % (Auto) 0.400 Neut % (Auto) 84.0 H Lymph % (Auto) 9.7 L [place] % (Auto) 5.2 Eos % (Auto) 0.3 Baso % (Auto) 0.4 Absolute Neuts (auto) 8.9 H Absolute Lymphs (auto) 1.02 Nucleated RBC % 0 PT 31.4 H INR 3.1 Sodium 142 Potassium 3.7 Chloride 108 H Carbon Dioxide 25.0 Anion Gap 9 BUN 25 H Creatinine 1.65 H Estim Creat Clear Calc 18.11 Est GFR (MDRD) Af Amer 38 L Est GFR (MDRD) Non-Af 32 L BUN/Creatinine Ratio 15.2 Glucose 145 H Lactic Acid Calcium 8.0 L Troponin I High Sens 21 01/18/22 13:10 WBC RBC Hgb Hct MCV MCH MCHC RDW Std Deviation RDW Coeff of Oly Plt Count MPV Immature Gran % (Auto) Neut % (Auto) Lymph % (Auto) [place] % (Auto) Eos % (Auto) Baso % (Auto) Absolute Neuts (auto) Absolute Lymphs (auto) Nucleated RBC % PT INR Sodium Potassium Chloride Carbon Dioxide Anion Gap BUN Creatinine Estim Creat Clear Calc Est GFR (MDRD) Af Amer Est GFR (MDRD) Non-Af BUN/Creatinine Ratio Glucose Lactic Acid 2.2 H* Calcium Troponin I High Sens Radiography Chest X-Ray - ED: 1 View and Read by ED Physician Diagnostic Testing: Clinical Impression(s) from Imaging Studies Chest X-Ray 01/18/22 13:20 IMPRESSION: Hyperinflation. Left lower lobe infiltrate and small left pleural effusion. Electronically Signed: Yahir Healy MD at 13:38 EDT , Chest x-ray, portable, single view interpreted myself the radiologist shows what appears to be a left lower lobe pneumonia with an effusion. Rhythm Strip Rhythm Strip: Sinus Rhythm Rate: 92 Ectopy: None EKG Initial EKG: Attestation: I personally reviewed and interpreted this EKG as follows: Interpretation: Sinus Rhythm and No Acute Injury Pattern Comments: Days. Sinus rhythm rate of 92 no acute signs of MO. Patient does have inverted T waves and ST depression in the lateral leads. Also associated LVH. Prior EKG tracings: available for review Prior: Changed Discharge Plan Dx/Rx/DC Orders Clinical Impression: Pneumonia, Chronic anticoagulation, Chronic kidney disease, COPD (chronic obstructive pulmonary disease), Anemia Disposition Disposition: Acute Care Hospital [facility]
[2022-01-18] MEDS: Ipratropium/Albuterol Sulfate 3 ML AMPUL.NEB INHALATION (12:39)
[2022-01-18 13:19] LABS: Absolute Lymphocyte Count 1.02 X10^3/uL (0.83-4.51); Absolute Neutrophil Count 8.9 X10^3/uL (2.0-7.7); Basophil# 0.04 X10^3/uL; Basophil% 0.4 % (0-1); Eosinophil# 0.03 X10^3/uL; Eosinophils% 0.3 % (0-5); Hemoglobin 10.8 g/dL (12.0-15.0); Lymphocyte # 1.02 X10^3/ul (0.83-4.51); Lymphocyte % 9.7 % (19-41); Mean Corpuscular Hgb 29.6 pg (27.0-32.0); Mean Corpuscular Volume 98.6 fL (81-99); Mean Platelet Vol. 10.2 fl (6.2-12.0); Monocyte# 0.55 X10^3/uL; Monocyte% 5.2 % (0-10); NRBC Flagged by Analyzer 0 % (0-5); Neutrophil # 8.86 X10^3/uL (2.7-7.7); Platelet Count 202 K/mm3 (150-450); RBC Distribution Width CV 13.5 % (11.6-14.6); RBC Distribution Width SD 48.7 fl (35.1-43.9); Red Blood Count 3.65 M/mm3 (4.2-5.4); White Blood Count 10.5 K/mm3 (4.4-11.0)
--- NOTE | 2022-01-18 13:20 | RAD_ITS ---
STUDY: X-RAY CHEST REASON FOR EXAM: Female, 81 years old. Cough TECHNIQUE: Single AP portable view of the chest. COMPARISON: Comparison is made with prior examination of 09/18/2021. FINDINGS: EKG electrodes are seen. Hyperinflation. Left lower lobe infiltrate with small left pleural effusion. Normal size heart. Normal mediastinum and aniya. Normal visualized pulmonary arteries. There is atherosclerotic calcification of the aortic arch with tortuosity. Normal visualized thoracic spine. Normal visualized ribs, clavicles, and shoulders. There is no demonstrated abnormality of the visualized soft tissue structures of the upper abdomen. RAD/Chest 1 View (Portable) IMPRESSION: Hyperinflation. Left lower lobe infiltrate and small left pleural effusion. Electronically Signed: Yahir Healy MD at 13:38 EDT ,
[2022-01-18 13:29] LABS: International Normalized Ratio 3.1; Prothrombin Time (Protime)PT. 31.4 SECONDS (11.7-14.9)
[2022-01-18 13:41] LABS: Anion Gap 9 (5-15); BUN 25 mg/dL (7-18); BUN/Creat Ratio 15.2 RATIO (10-20); Chloride 108 mmol/L (98-107); Creatinine, Serum 1.65 mg/dL (0.55-1.02); EST Glomerular Filtration Rate 32 mL/min (>60); Est Glom Filt Rate - Afr Amer 38 mL/min (>60); Estimated Creatinine Clearance 18.11 ml/min; Glucose 145 mg/dL (74-106); Potassium 3.7 mmol/L (3.5-5.1); Sodium Level 142 mmol/L (136-145); Troponin-I HS 21 pg/mL (3.0-54.0)
[2022-01-18 13:55] LABS: Lactic Acid 2.2 mmol/L (0.4-1.9)
[2022-01-18] MEDS: levoFLOXacin IV 500 MG/100 ML BAG 100 MG IV (15:10)
[2022-01-18 17:15] LABS: Reflex Lactate? Y
[2022-01-18 19:43] LABS: Lactic Acid 1.6 mmol/L (0.4-1.9)
--- NOTE | 2022-01-18 19:59 | HP.PCM.HOS_ITS ---
HPI - General General Date of Admission: 01/18/22 HPI Narrative ELIS SCRUGGS, is a 81 F who presents to the hospital with shortness of breath and intermittent fevers. She started feeling unwell about 2 weeks ago but has not sought care. She does have a history of COPD and she is on chronic medications for this. Today she presented to the hospital because of worsening weakness and her productive cough. Covid test in the ER was negative however chest x-ray demonstrates a left lower lobe pneumonia. She does not meet any criteria for sepsis secondary to no SIRS criteria being fulfilled. 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 Stage 1 mild COPD by GOLD classification Tobacco abuse Home Medications omeprazole 20 mg PO DAILY 12/30/14 [History Last Taken 01/18/22] atenolol 25 mg tablet 12.5 mg PO DAILY 08/28/18 [History Last Taken 01/18/22] simvastatin 20 mg PO DAILY 12/24/18 [History Last Taken 01/18/22] colesevelam 625 mg tablet 625 mg PO DAILY 12/13/19 [History Last Taken Unknown] glimepiride 0.5 mg PO DAILY 04/09/20 [History Last Taken 01/18/22] albuterol sulfate 2 puff INHALATION Q4H PRN PRN #2 inhaler 04/14/20 [Rx Last Taken 01/18/22] azithromycin 250 mg tablet 250 mg PO MOWEFR #12 tab 07/29/20 [Rx Last Taken 01/18/22] tiotropium bromide 2.5 mcg/actuation mist for inhalation 1 puff INHALATION DAILY #4 g 07/29/20 [Rx Last Taken 01/18/22] prednisone 5 mg tablet 5 mg PO DAILY 03/31/21 [History Last Taken 01/18/22] mometasone-formoterol HFA 200 mcg-5 mcg/actuation aerosol inhaler 2 inh INHALATION BID #3 ea 10/13/21 [Rx Last Taken 01/18/22] amlodipine 5 mg tablet 5 mg PO DAILY tab 12/28/21 [History Last Taken 01/17/22] ergocalciferol (vitamin D2) 1,250 mcg (50,000 unit) capsule 50,000 unit PO MO cap 12/28/21 [History Last Taken 01/18/22] warfarin 2 mg tablet 2 mg PO DAILY tab 12/28/21 [History Last Taken 01/18/22] diphenhydramine-acetaminophen [Tylenol PM Extra Strength] 1 tab PO QHS PRN 01/18/22 [History Last Taken 01/17/22] Allergy/AdvReac Type Severity Reaction Status Date / Time diltiazem HCl [From Cardizem] Allergy Angioedema Verified 01/18/22 11:48 fluticasone furoate Allergy PT UNSURE Verified 01/18/22 11:48 [From Breo Ellipta] OF REACTION gatifloxacin [From Tequin] Allergy Unknown Verified 01/18/22 11:48 hydrochlorothiazide Allergy Other Verified 01/18/22 11:48 [From Maxzide] Penicillins [PCN] Allergy Hives Verified 01/18/22 11:48 triamterene [From Maxzide] Allergy Other Verified 01/18/22 11:48 vilanterol Allergy PT UNSURE Verified 01/18/22 11:48 [From Breo Ellipta] OF REACTION codeine AdvReac Upset Verified 01/18/22 11:48 Stomach Family History Father Diabetes Lung cancer Mother Heart disease Hypertension Surgical History History of appendectomy History of hysterectomy History of skin graft Status post insertion of dialysis catheter Social History Smoking Status: Current every day smoker tobacco type: cigarettes second hand exposure: Yes alcohol intake: never substance use type: does not use caffeine: Yes what type of physical activity do you participate in: none ROS Constitutional Constitutional: Denies chills, fatigue, fever(s) or malaise Eyes Eyes: Denies blurry vision ENT HEENT: Denies headache(s) or nasal discharge Cardiovascular Cardiovascular: Denies chest pain, dyspnea on exertion or syncope Respiratory/Chest Respiratory/Chest: Reports cough and shortness of breath at rest; Denies shortness of breath with exertion Gastrointestinal Gastrointestinal: Denies constipation, diarrhea, nausea or vomiting Genitourinary Genitourinary: Denies dysuria Neurologic Neurologic: Denies focal weakness, numbness or tremor(s) Psychiatric Psychiatric: Denies anxiety or depression Vital Signs Vital Signs Vital Signs: 01/18/22 11:49 01/18/22 12:16 01/18/22 12:31 Temperature 97.8 F Temperature Source Temporal Pulse Rate 96 92 Respiratory Rate 18 15 Respiratory Effort Normal Respiratory Depth Normal Respiratory Pattern Normal Blood Pressure 126/83 H 135/105 H Blood Pressure Mean 97 115 Blood Pressure Source Blood Pressure Position Blood Pressure Location Pulse Ox 98 97 Oxygen Delivery Method Room Air Room Air Room Air 01/18/22 12:39 01/18/22 14:24 01/18/22 15:29 Temperature 98.1 F Temperature Source Temporal Pulse Rate 92 90 93 Respiratory Rate 22 H 16 15 Respiratory Effort Respiratory Depth Respiratory Pattern Tachypnea Blood Pressure 129/59 H 126/74 H Blood Pressure Mean 82 91 Blood Pressure Source Blood Pressure Position Blood Pressure Location Pulse Ox 97 97 Oxygen Delivery Method Room Air Room Air 01/18/22 15:30 01/18/22 16:24 Temperature 98.4 F Temperature Source Oral Pulse Rate 92 Respiratory Rate 16 Respiratory Effort Normal Non-Labored Respiratory Depth Deep Respiratory Pattern Irregular Blood Pressure 115/71 Blood Pressure Mean 85 Blood Pressure Source Monitor Blood Pressure Position Sitting Blood Pressure Location Left Arm Pulse Ox 98 Oxygen Delivery Method Room Air Room Air Weight Weight: 84 lb 6.4 oz Body Mass Index (BMI) 13.6 Physical Exam Const alert, oriented x3 and no apparent distress General Appearance: cooperative HEENT normocephalic and moist oral mucous membranes Eyes PERRL, EOMs intact bilaterally and conjunctivae normal Neck supple and no JVD Resp normal respiratory effort, no retractions and no use of accessory muscles Auscultation: crackles left base and diminished lung sounds; Negative for rales, rhonchi or wheezes Cardio regular rate, regular rhythm, S1 normal heart sound, S2 normal heart sound and no murmurs GI soft to palpation, non-tender and non-distended; Negative for hepatosplenomegaly Extremity no clubbing, cyanosis or edema Skin no rashes or lesions noted Neuro no focal motor deficits and no sensory deficits noted Psych affect normal Appearance: appropriate Results Lab / Micro Data Result Diagrams: 01/18/22 13:10 01/18/22 13:10 Labs: Laboratory Results - last 24 hr 01/18/22 13:10: WBC 10.5, RBC 3.65 L, Hgb 10.8 L, Hct 36.0 L, MCV 98.6, MCH 29.6, MCHC 30.0 L, RDW Std Deviation 48.7 H, RDW Coeff of Oly 13.5, Plt Count 202, MPV 10.2, Immature Gran % (Auto) 0.400, Neut % (Auto) 84.0 H, Lymph % (Auto) 9.7 L, [place] % (Auto) 5.2, Eos % (Auto) 0.3, Baso % (Auto) 0.4, Absolute Neuts (auto) 8.9 H, Absolute Lymphs (auto) 1.02, Nucleated RBC % 0 01/18/22 13:10: PT 31.4 H, INR 3.1 01/18/22 13:10: Sodium 142, Potassium 3.7, Chloride 108 H, Carbon Dioxide 25.0, Anion Gap 9, BUN 25 H, Creatinine 1.65 H, Estim Creat Clear Calc 18.11, Est GFR (MDRD) Af Amer 38 L, Est GFR (MDRD) Non-Af 32 L, BUN/Creatinine Ratio 15.2, Glucose 145 H, Calcium 8.0 L, Troponin I High Sens 21 01/18/22 13:10: Lactic Acid 2.2 H* 01/18/22 18:53: Lactic Acid 1.6 Micro: Microbiology 01/18/22 13:28 Nasal Secretion SARS-CoV-2 Antigen (Rapid) - Final Rhythm Strip Rhythm Strip: Sinus Rhythm Rate: 92 Ectopy: None Radiology Impression Chest X-Ray 01/18/22 13:20 IMPRESSION: Hyperinflation. Left lower lobe infiltrate and small left pleural effusion. Electronically Signed: Yahir Healy MD at 13:38 EDT , Assessment & Plan Assessment/Plan (1) Pneumonia: PLAN: 1. Left lower lobe pneumonia ?Continue with Rocephin and azithromycin ?She did receive a dose of Levaquin in the ER, based on her GFR she would need to be dosed at every 48 hours plus a significant interaction with Coumadin ?We will obtain a sputum culture ?We will obtain physical therapy and Occupational Therapy evaluations and if necessary she will need to go to a fpc if she demonstrates a need 2. COPD not in exacerbation/tobacco abuse ?Stable ?Continue with her home medications ?Discussed cessation 3. HTN/HLD ?Blood pressures are stable ?Continue with her home Norvasc, atenolol, statin 4. DM2 ?Stable ?Since she is observation will continue with her glimepiride and monitor her renal function 5. History of DVT ?Continue with Coumadin INR is 3.1 ?Continue to monitor DVT: Coumadin Charges/Coding Visit Charges OBSV E&M: 61862 Initial observation care L2
[2022-01-18] MEDS: MELATONIN 3 MG TABLET PO (21:18)
[2022-01-18] MEDS: Acetaminophen 325 MG Tablet 650 MG PO (21:18)
[2022-01-18] MEDS: Atorvastatin Calcium 10 MG Tablet PO (21:18)
[2022-01-19 03:39] VITALS: BP 125/70; PULSE 85; RESP 16; TEMP 36.7; O2SAT 97
[2022-01-19] MEDS: Budesonide Respules 0.5 MG/2 ML AMPUL.NEB. INHALATION (06:53)
[2022-01-19] MEDS: Ipratropium/Albuterol Sulfate 3 ML AMPUL.NEB INHALATION (06:53)
[2022-01-19 07:16] LABS: Absolute Lymphocyte Count 1.08 X10^3/uL (0.83-4.51); Absolute Neutrophil Count 5.8 X10^3/uL (2.0-7.7); Basophil# 0.02 X10^3/uL; Basophil% 0.3 % (0-1); Eosinophil# 0.04 X10^3/uL; Eosinophils% 0.5 % (0-5); Hematocrit 31.2 % (37-47); Hemoglobin 9.5 g/dL (12.0-15.0); Lymphocyte # 1.08 X10^3/ul (0.83-4.51); Lymphocyte % 14.4 % (19-41); Mean Corp Hgb Conc 30.4 g/dL (32-36); Mean Corpuscular Hgb 29.4 pg (27.0-32.0); Mean Corpuscular Volume 96.6 fL (81-99); Mean Platelet Vol. 10.3 fl (6.2-12.0); Monocyte# 0.57 X10^3/uL; Monocyte% 7.6 % (0-10); NRBC Flagged by Analyzer 0 % (0-5); Neutrophil # 5.75 X10^3/uL (2.7-7.7); Neutrophil % 76.8 % (47-70); Platelet Count 201 K/mm3 (150-450); RBC Distribution Width CV 13.4 % (11.6-14.6); Red Blood Count 3.23 M/mm3 (4.2-5.4); White Blood Count 7.5 K/mm3 (4.4-11.0)
[2022-01-19 07:18] LABS: International Normalized Ratio 3.6; Prothrombin Time (Protime)PT. 34.7 SECONDS (11.7-14.9)
[2022-01-19 07:32] LABS: Anion Gap 6 (5-15); BUN 25 mg/dL (7-18); BUN/Creat Ratio 16.2 RATIO (10-20); Calcium,Total 7.9 mg/dL (8.5-10.1); Chloride 111 mmol/L (98-107); Creatinine, Serum 1.54 mg/dL (0.55-1.02); EST Glomerular Filtration Rate 34 mL/min (>60); Est Glom Filt Rate - Afr Amer 42 mL/min (>60); Estimated Creatinine Clearance 17.61 ml/min; Glucose 104 mg/dL (74-106); Potassium 3.6 mmol/L (3.5-5.1); Sodium Level 141 mmol/L (136-145)
[2022-01-19 09:50] VITALS: BP 133/77; PULSE 100; RESP 18; TEMP 36.7; O2SAT 97
--- NOTE | 2022-01-19 09:56 | PCM.DC ---
Discharge Instructions Diet Discharge Diet: No restrictions Activity Discharge Activity: Return to Normal Activity Dressing / Incision Call your doctor if you observe: Fever of 101 or Higher and Shortness of breath Follow Up Care Test Results: Test results from this visit will be discussed in further detail at your follow-up appointment, if applicable. Discharge Plan Admission Admit Date/Time: 01/18/22 14:36 Primary Reason for Your Visit: pneumonia Attending Provider: Kain Chris Primary Care Provider: Yudith Rosales Discharge Orders/Prescriptions Prescriptions: New doxycycline hyclate 100 mg tablet 100 mg PO BID Qty: 10 RF: 0 prednisone 20 mg tablet 40 mg PO DAILY Qty: 10 RF: 0 Continued atenolol 25 mg tablet 12.5 mg PO DAILY RF: 0 colesevelam [WelChol] 625 mg tablet 625 mg PO DAILY RF: 0 tiotropium bromide 2.5 mcg/actuation mist 1 puff inhalation DAILY Qty: 4 RF: 2 ergocalciferol (vitamin D2) 1,250 mcg (50,000 unit) capsule 50,000 unit PO MO RF: 0 amlodipine 5 mg tablet 5 mg PO DAILY RF: 0 omeprazole 20 MG capsule 20 mg PO DAILY RF: 0 simvastatin 20 MG tablet 20 mg PO DAILY RF: 0 glimepiride 1 MG tablet 0.5 mg PO DAILY RF: 0 albuterol sulfate 1 PUFF inhaler 2 puff inhalation Q4H PRN PRN (Reason: Sob &/Or Wheezing) Qty: 2 RF: 0 diphenhydramine-acetaminophen [Tylenol PM Extra Strength] 25-500 mg Tablet 1 tab PO QHS PRN (Reason: Sleep) RF: 0 Dulera 200-5 mcg/actuation HFA aerosol inhaler 2 inh inhalation BID Qty: 3 RF: 3 Held warfarin 2 mg tablet 2 mg PO DAILY RF: 0 Hold Instructions: Resume on 01/21/22. Discontinued azithromycin 250 mg tablet 250 mg PO MOWEFR Qty: 12 RF: 2 prednisone 5 mg tablet 5 mg PO DAILY RF: 0 Referrals / Follow Up: Yudith Rosales DO [Primary Care Provider] - Within 2 Weeks Disposition Disposition (needs filled in before D/C Order can be placed): Home, Self Care
[2022-01-19] MEDS: Pantoprazole Sodium 20 MG Tablet PO (10:00)
[2022-01-19] MEDS: Atenolol 25 MG Tablet 12.5 MG PO (10:00)
[2022-01-19] MEDS: Glimepiride 1 MG Tablet 0.5 MG PO (10:00)
[2022-01-19] MEDS: predniSONE 5 MG Tablet PO (10:00)
[2022-01-19] MEDS: amLODIPine 5 MG Tablet PO (10:01)
--- NOTE | 2022-01-19 10:06 | PCM.DC.SUM ---
Providers Date of Admission: 01/18/22 Primary Care Physician: Dr. Yudith Rosales DO Reason For Visit: PNEUMONIA AND WEAKNESS Diagnosis Discharge Diagnosis (1) Pneumonia: Status: Acute Code(s): J18.9 - Pneumonia, unspecified organism (2) Acute exacerbation of chronic obstructive pulmonary disease (COPD): Status: Acute Code(s): J44.1 - Chronic obstructive pulmonary disease with (acute) exacerbation Medications at Discharge Home Medications omeprazole 20 mg PO DAILY 12/30/14 atenolol 25 mg tablet 12.5 mg PO DAILY 08/28/18 simvastatin 20 mg PO DAILY 12/24/18 colesevelam 625 mg tablet 625 mg PO DAILY 12/13/19 glimepiride 0.5 mg PO DAILY 04/09/20 albuterol sulfate 2 puff INHALATION Q4H PRN PRN #2 inhaler 04/14/20 tiotropium bromide 2.5 mcg/actuation mist for inhalation 1 puff INHALATION DAILY #4 g 07/29/20 mometasone-formoterol HFA 200 mcg-5 mcg/actuation aerosol inhaler 2 inh INHALATION BID #3 ea 10/13/21 amlodipine 5 mg tablet 5 mg PO DAILY tab 12/28/21 ergocalciferol (vitamin D2) 1,250 mcg (50,000 unit) capsule 50,000 unit PO MO cap 12/28/21 warfarin 2 mg tablet 2 mg PO DAILY tab 12/28/21 diphenhydramine-acetaminophen [Tylenol PM Extra Strength] 1 tab PO QHS PRN 01/18/22 doxycycline hyclate 100 mg PO BID #10 tab 01/19/22 prednisone 40 mg PO DAILY #10 tab 01/19/22 Hospital Course Operations None Procedures None Summary of Care Provided Minutes Spent on Discharge: 28 Hospital Course: This is an 81-year-old female presents with shortness of breath and weakness. Patient not been feeling well for couple weeks. Patient was having a productive cough. X-ray is concerning for pneumonia patient was started on azithromycin and ceftriaxone. Today, the patient is feeling much better. On exam, patient has diminished breath sounds bilaterally. On her home medication reconciliation form, she has prednisone 5 mg daily. She states that she is not taking on a daily basis. She asked if she should I told her that given the long-term side effects with chronic steroids that would not advise at this time only unless absolutely necessary. I did, however feel that she does need a burst of steroids with prednisone 40 mg daily for 5 days. Will discharge the patient with 5 days of doxycycline. I am not convinced patient does have an underlying pneumonia but will treat her empirically. Patient was on azithromycin prior to arrival. I do not feel that this was necessarily an antibiotic failure but may be more component of her underlying COPD. Patient is on warfarin for history of VTE. Patient will need to hold off on her warfarin for 2 more days given that her INR 3.6 today. Physical Exam Const alert Constitutional Narrative: thin. afebrile Resp normal respiratory effort and no retractions Resp Narrative: duiminished. Cardio regular rate, regular rhythm, S1 normal heart sound and S2 normal heart sound GI normal to inspection, nondistended, normoactive bowel sounds, soft to palpation, non-tender and non-distended Weight / BMI Weight Weight: 38.283 kg Body Mass Index (BMI) 13.6 ABG / Lab / Microbiology Data Result Diagrams: 01/19/22 06:40 01/19/22 06:40 Laboratory: Laboratory Results - last 24 hr 01/18/22 13:10: WBC 10.5, RBC 3.65 L, Hgb 10.8 L, Hct 36.0 L, MCV 98.6, MCH 29.6, MCHC 30.0 L, RDW Std Deviation 48.7 H, RDW Coeff of Oly 13.5, Plt Count 202, MPV 10.2, Immature Gran % (Auto) 0.400, Neut % (Auto) 84.0 H, Lymph % (Auto) 9.7 L, [place] % (Auto) 5.2, Eos % (Auto) 0.3, Baso % (Auto) 0.4, Absolute Neuts (auto) 8.9 H, Absolute Lymphs (auto) 1.02, Nucleated RBC % 0 01/18/22 13:10: PT 31.4 H, INR 3.1 01/18/22 13:10: Sodium 142, Potassium 3.7, Chloride 108 H, Carbon Dioxide 25.0, Anion Gap 9, BUN 25 H, Creatinine 1.65 H, Estim Creat Clear Calc 18.11, Est GFR (MDRD) Af Amer 38 L, Est GFR (MDRD) Non-Af 32 L, BUN/Creatinine Ratio 15.2, Glucose 145 H, Calcium 8.0 L, Troponin I High Sens 21 01/18/22 13:10: Lactic Acid 2.2 H* 01/18/22 18:53: Lactic Acid 1.6 01/19/22 06:40: WBC 7.5, RBC 3.23 L, Hgb 9.5 L, Hct 31.2 L, MCV 96.6, MCH 29.4, MCHC 30.4 L, RDW Std Deviation 48.0 H, RDW Coeff of Oly 13.4, Plt Count 201, MPV 10.3, Immature Gran % (Auto) 0.400, Neut % (Auto) 76.8 H, Lymph % (Auto) 14.4 L, [place] % (Auto) 7.6, Eos % (Auto) 0.5, Baso % (Auto) 0.3, Absolute Neuts (auto) 5.8, Absolute Lymphs (auto) 1.08, Nucleated RBC % 0 01/19/22 06:40: Sodium 141, Potassium 3.6, Chloride 111 H, Carbon Dioxide 24.0, Anion Gap 6, BUN 25 H, Creatinine 1.54 H, Estim Creat Clear Calc 17.61, Est GFR (MDRD) Af Amer 42 L, Est GFR (MDRD) Non-Af 34 L, BUN/Creatinine Ratio 16.2, Glucose 104, Calcium 7.9 L 01/19/22 06:40: PT 34.7 H, INR 3.6 Microbiology: Microbiology 01/18/22 13:28 Nasal Secretion SARS-CoV-2 Antigen (Rapid) - Final Radiography Diagnostic Testing: Radiology Impression Chest X-Ray 01/18/22 13:20 IMPRESSION: Hyperinflation. Left lower lobe infiltrate and small left pleural effusion. Electronically Signed: Yahir Healy MD at 13:38 EDT , D/C Instructions Discharge Diet: No restrictions Call your doctor if you observe: Fever of 101 or Higher and Shortness of breath Meaningful Use Info Meaningful Use Diagnoses (Choose all that apply): None applicable Discharge Plan Admission Admit Date/Time: 01/18/22 14:36 Primary Reason for Your Visit: pneumonia Attending Provider: Kain Chris Primary Care Provider: Yudith Rosales Discharge Orders/Prescriptions Prescriptions: New doxycycline hyclate 100 mg tablet 100 mg PO BID Qty: 10 RF: 0 prednisone 20 mg tablet 40 mg PO DAILY Qty: 10 RF: 0 Continued atenolol 25 mg tablet 12.5 mg PO DAILY RF: 0 colesevelam [WelChol] 625 mg tablet 625 mg PO DAILY RF: 0 tiotropium bromide 2.5 mcg/actuation mist 1 puff inhalation DAILY Qty: 4 RF: 2 ergocalciferol (vitamin D2) 1,250 mcg (50,000 unit) capsule 50,000 unit PO MO RF: 0 amlodipine 5 mg tablet 5 mg PO DAILY RF: 0 omeprazole 20 MG capsule 20 mg PO DAILY RF: 0 simvastatin 20 MG tablet 20 mg PO DAILY RF: 0 glimepiride 1 MG tablet 0.5 mg PO DAILY RF: 0 albuterol sulfate 1 PUFF inhaler 2 puff inhalation Q4H PRN PRN (Reason: Sob &/Or Wheezing) Qty: 2 RF: 0 diphenhydramine-acetaminophen [Tylenol PM Extra Strength] 25-500 mg Tablet 1 tab PO QHS PRN (Reason: Sleep) RF: 0 Dulera 200-5 mcg/actuation HFA aerosol inhaler 2 inh inhalation BID Qty: 3 RF: 3 Held warfarin 2 mg tablet 2 mg PO DAILY RF: 0 Hold Instructions: Resume on 01/21/22. Discontinued azithromycin 250 mg tablet 250 mg PO MOWEFR Qty: 12 RF: 2 prednisone 5 mg tablet 5 mg PO DAILY RF: 0 Referrals / Follow Up: Yudith Rosales DO [Primary Care Provider] - Within 2 Weeks Disposition Disposition (needs filled in before D/C Order can be placed): Home, Self Care Charges/Coding Visit Charges OBSV E&M: 78694 Observation care discharge
--- NOTE | 2022-01-19 10:35 | CASEMGMT ---
EDUARD WHITLOCK Assessment: Face to Face with pt for initial transition planning/care coordination assessment. EDUARD WHITLOCK introduced self and role at [facility], pt voices understanding and consents to assessment. Pt is A/O x4 and answers all questions appropriately at this time. Pt sitting up in bed on RA in no distress. Care providers, pharmacy, and demographics verified/updated. Admitting Dx: PNA and weakness PCP: Connie Specialists: xiomy uCello; bernabe Hayes Preferred [facility]acy: [facility] Insurance: HILDA Rose Prescription Benefit: yes LW/HPOA: Pt denies having a LW/DPOA and denies need for info regarding AD. LNOK: Taylor Montez, dilcia; Brenda Cobian dtr Living Arrangements: Pt lives alone in a 2nd floor apt. Pt states there is an elevator to take to get to her apt. Pt reports she is I in ADL's and denies concerns at home. Transportation: Pt drives self and denies concerns with transportation. DME/HHC/SNF: Pt denies having any DME, states she has an aide that comes in 1x/wk from [facility], denies SNF stays. Notified MASTER MECHANIC of aide from [facility]. Pt states no concerns with going home at time of dc. Pt states her insurance was sending a nurse out yesterday but then she was hospitalized. She states they will reschedule. She denies a need for HHC. Pt states no further concerns/needs. CM to follow. Advised pt to ask CM if any further question/concerns/needs arise, voices understanding. Pt Goal: Home Plan: Home
[2022-01-19 11:45] VITALS: BP 137/82; PULSE 94; RESP 18; TEMP 36.8; O2SAT 95
--- NOTE | 2022-01-19 15:02 | CASEMGMT ---
Social Work Note SW updated that pt has [facility] CM. SW placed a call to [facility] and pt's CM is Fabi Ortiz. ARABELLA updated Fabi Ortiz that pt was admitted to [facility] and pt discharged home today, denied the need for HHC. Fabi states understanding. ARABELLA faxed discharge paperwork to [facility]. Eden Reyes [employer] FIELD MECHANIC, POT [employer]ER
== END 2022-01-19 11:54 | disposition home or self-care (01) ==
LOC: ED 14:19 → MS3 15:02
PROVIDERS: Admitting Provider Family Medicine; Emergency Provider Emergency Medicine; PCP Internal Medicine
DX: J18.9 Pneumonia, unspecified organism (principal); J44.0 Chronic obstructive pulmonary disease with (acute) lower respiratory infection; J44.1 Chronic obstructive pulmonary disease with (acute) exacerbation; E11.22 Type 2 diabetes mellitus with diabetic chronic kidney disease; N18.5 Chronic kidney disease, stage 5; I12.0 Hypertensive chronic kidney disease with stage 5 chronic kidney disease or end stage renal disease; D64.9 Anemia, unspecified; Z79.01 Long term (current) use of anticoagulants; Z86.718 Personal history of other venous thrombosis and embolism; K21.9 Gastro-esophageal reflux disease without esophagitis; Z79.899 Other long term (current) drug therapy; Z79.84 Long term (current) use of oral hypoglycemic drugs; F17.210 Nicotine dependence, cigarettes, uncomplicated
CPT/HCPCS: 36415; 71045; 80048; 83605; 84484; 85025; 85610; 87811; 93005; 94640; 96365; 97161; 97165; 99218; 99285; J7030; G0378

== ENCOUNTER 2022-01-27 16:28 | Emergency (ER) | payer MEDICARE, MEDICAID, SELFPAY ==
[2022-01-27 16:29] VITALS: BP 104/93; PULSE 91; RESP 16; TEMP 36.8; O2SAT 98; BMI 14.3
[2022-01-27 16:32] VITALS: BP 104/93; PULSE 111; RESP 16; O2SAT 97
--- NOTE | 2022-01-27 17:22 | US_ITS ---
INDICATION: RT POSTERIOR CALF PAIN EXAMINATION: US Venous Duplex LE Unilat / Limited TECHNIQUE: Jean Baptiste scale, pulse wave, and color flow Doppler imaging was performed of the lower extremity venous system. The right greater saphenous, common femoral, femoral, and popliteal veins were interrogated. COMPARISON: None. FINDINGS: There is normal compression, augmentation, and signal throughout the visualized deep lower extremity veins. There is noncompression within the lesser saphenous vein. No mass or fluid collection. US/Venous Duplex Imag/Limited/Uni IMPRESSION: No sonographic evidence of deep venous thrombosis. Superficial thrombophlebitis of the right lesser saphenous vein. Electronically Signed: Rajan Oro MD at 19:05 EDT ,
--- NOTE | 2022-01-27 17:26 | EDS_ITS ---
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 She states is in her calf and goes up behind her knee and distal thigh. She felt slightly short of breath today and was worried that she might have another blood clot even though her last INR was supratherapeutic. This was 2 weeks ago and it was 3.6. Chart review shows the patient was admitted on 01/18 and discharged on 01/19 for COPD exacerbation and pneumonia. At discharge her INR was 3.6. Patient was treated with prednisone and doxycycline. Patient states overall her symptoms have improved. She notes she just really nervous about having a blood clot. [facility] Medical History (Updated 01/27/22 @ 18:[address] 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 Stage 1 mild COPD by GOLD classification Tobacco abuse Home Medications omeprazole 20 mg PO DAILY 12/30/14 [History Last Taken 01/18/22] atenolol 25 mg tablet 12.5 mg PO DAILY 08/28/18 [History Last Taken 01/18/22] simvastatin 20 mg PO DAILY 12/24/18 [History Last Taken 01/18/22] colesevelam 625 mg tablet 625 mg PO DAILY 12/13/19 [History Last Taken Unknown] glimepiride 0.5 mg PO DAILY 04/09/20 [History Last Taken 01/18/22] albuterol sulfate 2 puff INHALATION Q4H PRN PRN #2 inhaler 04/14/20 [Rx Last Taken 01/18/22] tiotropium bromide 2.5 mcg/actuation mist for inhalation 1 puff INHALATION DAILY #4 g 07/29/20 [Rx Last Taken 01/18/22] mometasone-formoterol HFA 200 mcg-5 mcg/actuation aerosol inhaler 2 inh INHALATION BID #3 ea 10/13/21 [Rx Last Taken 01/18/22] amlodipine 5 mg tablet 5 mg PO DAILY tab 12/28/21 [History Last Taken 01/17/22] ergocalciferol (vitamin D2) 1,250 mcg (50,000 unit) capsule 50,000 unit PO MO cap 12/28/21 [History Last Taken 01/18/22] warfarin 2 mg tablet 2 mg PO DAILY tab 12/28/21 [History Last Taken 01/18/22] diphenhydramine-acetaminophen [Tylenol PM Extra Strength] 1 tab PO QHS PRN 01/18/22 [History Last Taken 01/17/22] doxycycline hyclate 100 mg PO BID #10 tab 01/19/22 [Rx Last Taken Unknown] prednisone 40 mg PO DAILY #10 tab 01/19/22 [Rx Last Taken Unknown] Allergy/AdvReac Type Severity Reaction Status Date / Time diltiazem HCl [From Cardizem] Allergy Angioedema Verified 01/27/22 16:29 fluticasone furoate Allergy PT UNSURE Verified 01/27/22 16:29 [From Breo Ellipta] OF REACTION gatifloxacin [From Tequin] Allergy Unknown Verified 01/27/22 16:29 hydrochlorothiazide Allergy Other Verified 01/27/22 16:29 [From Maxzide] Penicillins [PCN] Allergy Hives Verified 01/27/22 16:29 triamterene [From Maxzide] Allergy Other Verified 01/27/22 16:29 vilanterol Allergy PT UNSURE Verified 01/27/22 16:29 [From Breo Ellipta] OF REACTION codeine AdvReac Upset Verified 01/27/22 16:29 Stomach Family History Father Diabetes Lung cancer Mother Heart disease Hypertension Surgical History (Updated 01/27/22 @ 00:01 by Background Olaf) History of appendectomy History of hysterectomy History of skin graft Status post insertion of dialysis catheter Social History Smoking Status: Current every day smoker tobacco type: cigarettes second hand exposure: Yes alcohol intake: never substance use type: does not use caffeine: Yes what type of physical activity do you participate in: none ROS ROS ED Constitutional Constitutional ED: Denies chills or fever(s) Eyes Eyes: Denies change in vision ENT ENT ED: Denies rhinorrhea Cardiovascular Cardiovascular: Denies chest pain or palpitations Respiratory/Chest Respiratory/Chest: Reports dyspnea; Denies cough or dyspnea on exertion Gastrointestinal Gastrointestinal: Denies abdominal pain, nausea or vomiting Genitourinary Genitourinary ED: Denies dysuria Musculoskeletal Musculoskeletal: Reports other Details: right leg pain Integumentary Denies rash Neurologic Neurologic: Denies headache(s) or weakness Psychiatric Psychiatric: Denies depression Hematologic/Lymphatic Hematologic/Lymphatic: Reports easy bleeding EXAM Physical Exam Const Vital Signs: 01/27/22 16:29 01/27/22 16:32 Temperature 98.3 F Temperature Source Temporal Pulse Rate 91 111 H Respiratory Rate 16 16 Blood Pressure 104/93 H 104/93 H Blood Pressure Mean 96 96 Pulse Ox 98 97 Oxygen Delivery Method Room Air Room Air Positive well nourished, well developed and cachectic General Appearance ED: well developed and cachectic Nutritional Appearance: cachectic HEENT Reports other dry mucosal membranes normocephalic and atraumatic Neck full ROM and supple Chest Wall inspection of chest normal Resp normal respiratory effort Resp Narrative: End expiratory wheezing with coarse breath sounds throughout Cardio regular rhythm and no murmurs Rate: tachycardic GI non-tender and non-distended Palpation: soft Extremity normal to inspection and full ROM Extremity Narrative: Patient has tenderness palpation of the right posterior knee and calf but does not have any palpable cords or associated lymphangitic streaking. No appreciable edema present. General Extremety ED: Negative for edema General Extremity: Negative for edema Neuro oriented x3 and moves all extremities Sensorium / Orientation: alert Psych mental status grossly normal Skin Lesions: no lesions Rashes: no rashes MDM MDM MDM Narrative Medical decision making narrative: Patient evaluated with right lower extremity pain. She does have a history of DVTs and a recent hospitalization. Her last Coumadin check was elevated at 3.6 and she had to hold her Coumadin. She does not know what it is currently. She is worried she has another blood clot. INR today is 2.5. She is therapeutic. Her creatinine is at her baseline. She is anemic with a hemoglobin of 10.7 but this is actually improved from 2 weeks ago. Venous duplex ultrasound does not show any DVT but does show superficial thrombophlebitis of the right leg. This likely cause her pain. Patient is counseled on Gt wrap and warm compresses to help with the pain and to continue her Coumadin. She is agreeable to splenic care. She is discharged home. Lab Data Labs: Laboratory Results - last 24 hr 01/27/22 01/27/22 01/27/22 17:40 17:40 17:40 WBC 10.9 RBC 3.59 L Hgb 10.7 L Hct 33.2 L MCV 92.5 MCH 29.8 MCHC 32.2 RDW Std Deviation 47.2 H RDW Coeff of Oly 13.9 Plt Count 205 MPV 10.4 Immature Gran % (Auto) 0.600 Neut % (Auto) 70.2 H Lymph % (Auto) 16.8 L [place] % (Auto) 9.4 Eos % (Auto) 2.8 Baso % (Auto) 0.2 Absolute Neuts (auto) 7.7 Absolute Lymphs (auto) 1.83 Nucleated RBC % 0 PT 26.0 H INR 2.5 Sodium 139 Potassium 3.5 Chloride 109 H Carbon Dioxide 24.0 Anion Gap 6 BUN 34 H Creatinine 1.56 H Estim Creat Clear Calc 18.30 Est GFR (MDRD) Af Amer 41 L Est GFR (MDRD) Non-Af 34 L BUN/Creatinine Ratio 21.8 H Glucose 117 H Calcium 7.1 L Discharge Plan Triage Chief Complaint: Lower Extremity Injury ED Provider: Jeanne Koroma Dx/Rx/DC Orders Clinical Impression: Superficial thrombophlebitis of right leg, Chronic anticoagulation Instructions: ED Thrombophlebitis, Superficial Prescriptions: No Action atenolol 25 mg tablet 12.5 mg PO DAILY RF: 0 colesevelam [WelChol] 625 mg tablet 625 mg PO DAILY RF: 0 tiotropium bromide 2.5 mcg/actuation mist 1 puff inhalation DAILY Qty: 4 RF: 2 ergocalciferol (vitamin D2) 1,250 mcg (50,000 unit) capsule 50,000 unit PO MO RF: 0 warfarin 2 mg tablet 2 mg PO DAILY RF: 0 Hold Instructions: Resume on 01/21/22. amlodipine 5 mg tablet 5 mg PO DAILY RF: 0 omeprazole 20 MG capsule 20 mg PO DAILY RF: 0 simvastatin 20 MG tablet 20 mg PO DAILY RF: 0 glimepiride 1 MG tablet 0.5 mg PO DAILY RF: 0 albuterol sulfate 1 PUFF inhaler 2 puff inhalation Q4H PRN PRN (Reason: Sob &/Or Wheezing) Qty: 2 RF: 0 diphenhydramine-acetaminophen [Tylenol PM Extra Strength] 25-500 mg Tablet 1 tab PO QHS PRN (Reason: Sleep) RF: 0 doxycycline hyclate 100 mg tablet 100 mg PO BID Qty: 10 RF: 0 prednisone 20 mg tablet 40 mg PO DAILY Qty: 10 RF: 0 Dulera 200-5 mcg/actuation HFA aerosol inhaler 2 inh inhalation BID Qty: 3 RF: 3 Primary Care Provider: Yudith Rosales Referrals: Yudith Rosales DO [Primary Care Provider] - Activity Restrictions/Additional Instructions: Take Tylenol for pain. Use warm compresses to help. Continue taking your Coumadin. Your INR level today was 2.5. Follow-up with your primary care doctor. Disposition Disposition: Home, Self Care
[2022-01-27 17:54] LABS: Absolute Lymphocyte Count 1.83 X10^3/uL (0.83-4.51); Absolute Neutrophil Count 7.7 X10^3/uL (2.0-7.7); Basophil# 0.02 X10^3/uL; Basophil% 0.2 % (0-1); Eosinophil# 0.31 X10^3/uL; Eosinophils% 2.8 % (0-5); Hematocrit 33.2 % (37-47); Hemoglobin 10.7 g/dL (12.0-15.0); Lymphocyte # 1.83 X10^3/ul (0.83-4.51); Lymphocyte % 16.8 % (19-41); Mean Corp Hgb Conc 32.2 g/dL (32-36); Mean Corpuscular Hgb 29.8 pg (27.0-32.0); Mean Corpuscular Volume 92.5 fL (81-99); Mean Platelet Vol. 10.4 fl (6.2-12.0); Monocyte# 1.03 X10^3/uL; Monocyte% 9.4 % (0-10); NRBC Flagged by Analyzer 0 % (0-5); Neutrophil # 7.65 X10^3/uL (2.7-7.7); Neutrophil % 70.2 % (47-70); Platelet Count 205 K/mm3 (150-450); RBC Distribution Width CV 13.9 % (11.6-14.6); RBC Distribution Width SD 47.2 fl (35.1-43.9); Red Blood Count 3.59 M/mm3 (4.2-5.4); White Blood Count 10.9 K/mm3 (4.4-11.0)
[2022-01-27 18:03] LABS: International Normalized Ratio 2.5
[2022-01-27 18:11] LABS: Anion Gap 6 (5-15); BUN 34 mg/dL (7-18); BUN/Creat Ratio 21.8 RATIO (10-20); Calcium,Total 7.1 mg/dL (8.5-10.1); Chloride 109 mmol/L (98-107); Creatinine, Serum 1.56 mg/dL (0.55-1.02); EST Glomerular Filtration Rate 34 mL/min (>60); Est Glom Filt Rate - Afr Amer 41 mL/min (>60); Glucose 117 mg/dL (74-106); Potassium 3.5 mmol/L (3.5-5.1); Sodium Level 139 mmol/L (136-145)
== END 2022-01-27 19:12 | disposition home or self-care (01) ==
PROVIDERS: Emergency Provider Emergency Medicine; PCP Internal Medicine; Visit Provider Emergency Medicine
DX: I80.01 Phlebitis and thrombophlebitis of superficial vessels of right lower extremity (principal); F17.210 Nicotine dependence, cigarettes, uncomplicated; Z79.01 Long term (current) use of anticoagulants; Z86.718 Personal history of other venous thrombosis and embolism
CPT/HCPCS: 80048; 85025; 85610; 93971; 99285

== ENCOUNTER 2022-02-04 12:30 | Outpatient (RCR) | payer MEDICARE, OTHER, MEDICAID, SELFPAY ==
[2021-12-22 09:42] VITALS: BMI 14.6
[2022-02-04 12:40] LABS: INR Fingerstick 1.5; Prothrombin Time Fingerstick 17.8 SEC (11.7-14.9)
== END 2022-02-04 18:00 | disposition home or self-care (01) ==
LOC: LAB 12:30
PROVIDERS: Family Provider Internal Medicine; PCP Internal Medicine; Referring Provider Internal Medicine; Visit Provider Internal Medicine
DX: Z79.01 Long term (current) use of anticoagulants (principal); Z86.718 Personal history of other venous thrombosis and embolism
CPT/HCPCS: 36416; 85610

== ENCOUNTER 2022-02-12 11:52 | Emergency (ER) | payer MEDICARE, MEDICAID, SELFPAY ==
[2022-02-12 11:52] VITALS: BP 125/89; PULSE 87; RESP 20; TEMP 36.6; O2SAT 99; BMI 16.2
[2022-02-12 11:58] VITALS: BP 125/89; PULSE 87; RESP 20; TEMP 36.6; O2SAT 99
[2022-02-12 12:01] VITALS: O2SAT 99
--- NOTE | 2022-02-12 12:01 | EKG12_ITS ---
Test Reason : SOB Blood Pressure : / mmHG Vent. Rate : 086 BPM Atrial Rate : 087 BPM P-R Int : 000 ms QRS Dur : 106 ms QT Int : 404 ms P-R-T Axes : 000 063 236 degrees QTc Int : 483 ms Accelerated Junctional rhythm Left ventricular hypertrophy with repolarization abnormality Abnormal ECG Confirmed by ANURADHA GARAY, MARC ([id number]), purchase request editor LUIS MENDEZ ([id number]) on 02/16/2022 9:05:58 AM Referred By: Confirmed By:MARC LING MD
--- NOTE | 2022-02-12 12:07 | EDS_ITS ---
HPI History of Present Illness Chief Complaint: Shortness of Breath Detail of Chief Complaint: Shortness of breath that started last evening Informant: patient Onset/Context/Timing Onset: Yesterday Timing: Continuous Quality: Positive for Dyspnea on exertion; Negative for Orthopnea, PND and Wheezing Current Severity: Mild Maximum Severity: Severe Worsened by: Exertion Relieved by: Nothing Associated Symptoms cough; Negative for rhinorrhea, post nasal drip, ear pain, fever, sore throat, subjective, chills, sweats, white sputum, yellow sputum or green sputum Chest Pain: Positive for None Narrative Narrative: Patient is an 81-year-old woman who states she has not had a cigarette in 9 days who presents with shortness of breath. She states she has not had a cigarette 9 days. She does endorse history of COPD and was admitted January 18 for pneumonia. She also has history of DVT x1 right lower extremity and x2 left lower extremity. She is on Coumadin 2 mg daily. She denies fever, chills night sweats. She does endorse weight loss. Weight loss is unintentional. She denies back or bone pain. She denies headache. She denies visual, ocular auditory symptoms. She does endorse having a hoarse voice. Said she has had a hoarse voice and shortness of breath since diagnosis of pneumonia. She has been vaccinated for the flu as well as COVID with booster. PE Risk Factors: Positive for Prior DVT or PE; Negative for Cancer, OCP + Smoking + > 35, Recent immobilization, Recent surgery and Recent travel Prior similar symptoms: Yes Recent Illness/Hospitalization: Yes (December) [facility] [place] Medical History (Updated 02/12/22 @ 15:[address] 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 Stage 1 mild COPD by GOLD classification Tobacco abuse Home Medications omeprazole 20 mg PO DAILY 12/30/14 [History Last Taken 01/18/22] atenolol 25 mg tablet 12.5 mg PO DAILY 11/05/18 [History Last Taken 01/18/22] simvastatin 20 mg PO DAILY 12/24/18 [History Last Taken 01/18/22] colesevelam 625 mg tablet 625 mg PO DAILY 12/13/19 [History Last Taken Unknown] glimepiride 0.5 mg PO DAILY 04/09/20 [History Last Taken 01/18/22] albuterol sulfate 2 puff INHALATION Q4H PRN PRN #2 inhaler 04/14/20 [Rx Last Taken 01/18/22] tiotropium bromide 2.5 mcg/actuation mist for inhalation 1 puff INHALATION DAILY #4 g 07/29/20 [Rx Last Taken 01/18/22] mometasone-formoterol HFA 200 mcg-5 mcg/actuation aerosol inhaler 2 inh INHALATION BID #3 ea 10/13/21 [Rx Last Taken 01/18/22] amlodipine 5 mg tablet 5 mg PO DAILY tab 12/28/21 [History Last Taken 01/17/22] ergocalciferol (vitamin D2) 1,250 mcg (50,000 unit) capsule 50,000 unit PO MO cap 12/28/21 [History Last Taken 01/18/22] warfarin 2 mg tablet 2 mg PO TUTHSA tab 12/28/21 [History Last Taken 01/18/22] diphenhydramine-acetaminophen [Tylenol PM Extra Strength] 1 tab PO QHS PRN 01/18/22 [History Last Taken 01/17/22] doxycycline hyclate 100 mg PO BID #10 tab 01/19/22 [Rx Last Taken Unknown] doxycycline monohydrate 100 mg PO BID #14 capsule 02/12/22 [Rx Last Taken Unknown] warfarin 4 mg PO SUMOWEFR 02/12/22 [History Last Taken Unknown] Allergy/AdvReac Type Severity Reaction Status Date / Time diltiazem HCl [From Cardizem] Allergy Angioedema Verified 02/12/22 11:59 fluticasone furoate Allergy PT UNSURE Verified 02/12/22 11:59 [From Breo Ellipta] OF REACTION gatifloxacin [From Tequin] Allergy Unknown Verified 02/12/22 11:59 hydrochlorothiazide Allergy Other Verified 02/12/22 11:59 [From Maxzide] Penicillins [PCN] Allergy Hives Verified 02/12/22 11:59 triamterene [From Maxzide] Allergy Other Verified 02/12/22 11:59 vilanterol Allergy PT UNSURE Verified 02/12/22 11:59 [From Breo Ellipta] OF REACTION codeine AdvReac Upset Verified 02/12/22 11:59 Stomach Family History Father Diabetes Lung cancer Mother Heart disease Hypertension Surgical History History of appendectomy History of hysterectomy History of skin graft Status post insertion of dialysis catheter Social History (Updated 02/12/22 @ 12:[address] Mikal Whitehead MD) household members: none Smoking Status: Current every day smoker tobacco type: cigarettes second hand exposure: Yes alcohol intake: never substance use type: does not use caffeine: Yes what type of physical activity do you participate in: none ROS ROS ED Constitutional Constitutional ED: Reports weight loss; Denies chills, fever(s) or sweats Eyes Eyes: Denies blurry vision, change in vision or diplopia ENT ENT ED: Denies ear pain, rhinorrhea or sore throat Cardiovascular Cardiovascular: Denies chest pain, orthopnea, palpitations, paroxysmal nocturnal dyspnea or racing heartbeat Respiratory/Chest Respiratory/Chest: Reports cough, dyspnea and dyspnea on exertion; Denies orthopnea or paroxysmal nocturnal dyspnea Gastrointestinal Gastrointestinal: Denies abdominal pain, constipation, diarrhea, nausea or vomiting Genitourinary Genitourinary ED: Denies dysuria, hematuria or urinary frequency Musculoskeletal Musculoskeletal: Denies arthralgias, myalgias or neck pain Integumentary Denies rash Neurologic Neurologic: Denies headache(s), paresthesias or weakness Psychiatric Psychiatric: Denies anxiety or depression Hematologic/Lymphatic Hematologic/Lymphatic: Denies easy bleeding, easy bruising or lymphadenopathy EXAM Physical Exam Const Vital Signs: 02/12/22 11:52 02/12/22 11:58 02/12/22 12:01 Temperature 97.9 F 97.9 F Temperature Source Temporal Temporal Pulse Rate 87 87 Respiratory Rate 20 H 20 H Respiratory Effort Short of Breath Labored Accessory Muscle Use Respiratory Depth Shallow Blood Pressure 125/89 H 125/89 H Blood Pressure Mean 101 101 Pulse Ox 99 99 Oxygen Delivery Method Nasal Cannula Nasal Cannula Room Air Oxygen Flow Rate (L/min) 1 02/12/22 13:10 Temperature Temperature Source Pulse Rate 85 Respiratory Rate 20 H Respiratory Effort Respiratory Depth Blood Pressure Blood Pressure Mean Pulse Ox 96 Oxygen Delivery Method Room Air Oxygen Flow Rate (L/min) Positive well nourished and well developed General Appearance ED: well developed and NAD; Negative for pallor HEENT Reports TM's clear and moist mucous membranes; Denies dry mucous membranes atraumatic; Negative for trauma or tenderness Tympanic Membrane ED: Yes TM's clear Mouth ED: No dry mucous membranes Mouth: No dry mucous membranes Eyes PERRL and EOMs intact bilaterally General Eye ED: Negative for pale conjunctiva or scleral icterus Neck no lymphadenopathy, supple, no meningeal signs and no JVD Neck Narrative: There is no carotid bruit. Trachea is midline. There is no inspiratory stridor. Resp No normal respiratory effort and No clear to auscultation bilaterally Auscultation: diminished lung sounds left (Breath sounds diminished bilaterally but there is a difference between the right and left.) lower Cardio regular rate, regular rhythm, S1 normal heart sound, S2 normal heart sound and no murmurs GI non-tender, non-distended and no masses Auscultation: normoactive bowel sounds Palpation: soft Back/Spine no CVA tenderness and normal to inspection General Back: Negative for CVA tenderness Extremity normal to inspection Extremity Narrative: There is no asymmetry, swelling, discoloration, leg vein distention, palpable cords or tenderness along the distribution of the deep venous system. General Extremety ED: Negative for edema or tenderness General Extremity: Negative for edema Neuro oriented x3 and CN's II-XII intact bilaterally Shamar Coma Scale: document GCS findings Spontaneous Obeys Commands Oriented 15 Sensorium / Orientation: alert Psych mental status grossly normal Skin no wounds General Skin Exam: Negative for jaundice or pallor Lesions: no lesions Rashes: no rashes MDM MDM MDM Narrative Medical decision making narrative: Differential diagnosis would be pulmonary embolus, exacerbation COPD, pneumonia, pneumothorax CHF or acute cardiac ischemia. Will obtain EKG just turn if there is any evidence of right heart strain. Chest x-ray and appropriate labs Port score is 90 which makes her moderate risk and admission is not mandatory. Curb 65 score is 2 and also at moderate risk and outpatient follow-up is not inappropriate. Since patient's white count is normal she does not desaturate with walking will discharge with prescription for levofloxacin and follow-up with her primary care physician. Lab Data Attestation: I reviewed the patient's lab results. Lab results narrative: GFR is 38. D-dimer is elevated even if corrected for age. Patient's INR is subtherapeutic. With unintentional weight loss pleural effusion, which may represent a malignant pleural effusion and elevated D-dimer need to obtain CTA to evaluate for pulmonary embolus. Labs: Laboratory Results - last 24 hr 02/12/22 02/12/22 02/12/22 12:15 12:15 12:15 WBC 9.8 RBC 3.32 L Hgb 9.8 L Hct 32.3 L MCV 97.3 MCH 29.5 MCHC 30.3 L RDW Std Deviation 51.3 H RDW Coeff of Oly 14.3 Plt Count 146 L MPV 11.2 Immature Gran % (Auto) 0.300 Neut % (Auto) 75.7 H Lymph % (Auto) 12.7 L [place] % (Auto) 8.3 Eos % (Auto) 2.7 Baso % (Auto) 0.3 Absolute Neuts (auto) 7.4 Absolute Lymphs (auto) 1.24 Nucleated RBC % 0 PT 19.5 H INR 1.7 D-Dimer Quant (PE/DVT) 2.10 H* Sodium 140 Potassium 4.0 Chloride 108 H Carbon Dioxide 26.0 Anion Gap 6 BUN 21 H Creatinine 1.41 H Estim Creat Clear Calc 23.66 Est GFR (MDRD) Af Amer 46 L Est GFR (MDRD) Non-Af 38 L BUN/Creatinine Ratio 14.9 Glucose 113 H Lactic Acid Calcium 8.2 L Total Bilirubin 0.30 AST 17 ALT 22 Alkaline Phosphatase 64 Total Protein 5.9 L Albumin 2.8 L Globulin 3.1 Albumin/Globulin Ratio 0.9 02/12/22 12:15 WBC RBC Hgb Hct MCV MCH MCHC RDW Std Deviation RDW Coeff of Oly Plt Count MPV Immature Gran % (Auto) Neut % (Auto) Lymph % (Auto) [place] % (Auto) Eos % (Auto) Baso % (Auto) Absolute Neuts (auto) Absolute Lymphs (auto) Nucleated RBC % PT INR D-Dimer Quant (PE/DVT) Sodium Potassium Chloride Carbon Dioxide Anion Gap BUN Creatinine Estim Creat Clear Calc Est GFR (MDRD) Af Amer Est GFR (MDRD) Non-Af BUN/Creatinine Ratio Glucose Lactic Acid 1.8 Calcium Total Bilirubin AST ALT Alkaline Phosphatase Total Protein Albumin Globulin Albumin/Globulin Ratio Radiography Chest X-Ray - ED: 2 View and Read by ED Physician (In dependently interpreted by me. Patient has a significant pleural effusion on the left. There is hyperaeration and findings consistent with COPD. Right cardiac border is unremarkable. The left is obscured because of the effusion. Cardiac size is unremarkable. Osseous structures appear unrema) Diagnostic Testing: Clinical Impression(s) from Imaging Studies Chest X-Ray 02/12/22 12:30 IMPRESSION: Worsening left lower lobe airspace disease and pleural effusion. Electronically Signed: Roque Cain MD ([place]) at 12:43 EDT , Chest CTA 02/12/22 13:42 IMPRESSION: 1. No evidence of acute pulmonary embolism. 2. Moderate size left pleural effusion with pneumonia/atelectasis of the left lower lobe. 3. Extensive pulmonary emphysema. 4. Cardiomegaly. Electronically Signed: Paulo Lopez MD at 14:27 EDT , EKG Initial EKG: Attestation: I personally reviewed and interpreted this EKG as follows: Interpretation: Sinus Rhythm (Ventricular rate is 86. There is significant artifact due to labored breathing. NC interval is normal. Cures duration 106 ms. QT duration 404 ms. [place] is normal. There is evidence of LVH with repolarization changes noted.) Discharge Plan Triage Chief Complaint: Shortness of Breath ED Provider: Mikal Whitehead Dx/Rx/DC Orders Clinical Impression: Left lower lobe pneumonia, Parapneumonic effusion, Shortness of breath Instructions: ED Pleural Effusion, ED Pneumonia (Adult) Prescriptions: New doxycycline monohydrate 100 MG capsule 100 mg PO BID Qty: 14 RF: 0 No Action atenolol 25 mg tablet 12.5 mg PO DAILY RF: 0 colesevelam [WelChol] 625 mg tablet 625 mg PO DAILY RF: 0 tiotropium bromide 2.5 mcg/actuation mist 1 puff inhalation DAILY Qty: 4 RF: 2 ergocalciferol (vitamin D2) 1,250 mcg (50,000 unit) capsule 50,000 unit PO MO RF: 0 warfarin 2 mg tablet 2 mg PO TUTHSA RF: 0 Hold Instructions: Resume on 01/21/22. amlodipine 5 mg tablet 5 mg PO DAILY RF: 0 omeprazole 20 MG capsule 20 mg PO DAILY RF: 0 simvastatin 20 MG tablet 20 mg PO DAILY RF: 0 glimepiride 1 MG tablet 0.5 mg PO DAILY RF: 0 albuterol sulfate 1 PUFF inhaler 2 puff inhalation Q4H PRN PRN (Reason: Sob &/Or Wheezing) Qty: 2 RF: 0 diphenhydramine-acetaminophen [Tylenol PM Extra Strength] 25-500 mg Tablet 1 tab PO QHS PRN (Reason: Sleep) RF: 0 doxycycline hyclate 100 mg tablet 100 mg PO BID Qty: 10 RF: 0 warfarin 2 mg tablet 4 mg PO SUMOWEFR RF: 0 Dulera 200-5 mcg/actuation HFA aerosol inhaler 2 inh inhalation BID Qty: 3 RF: 3 Primary Care Provider: Yudith Rosales Referrals: Yudith Rosales DO [Primary Care Provider] - 3-5 Days Activity Restrictions/Additional Instructions: Take antibiotics until gone It is in your best interest to stop smoking Disposition Disposition: Home, Self Care
--- NOTE | 2022-02-12 12:30 | RAD_ITS ---
STUDY: X-RAY CHEST REASON FOR EXAM: Female, 81 years old. Shortness of breath, diminished breath sounds left TECHNIQUE: PA and lateral views of the chest. COMPARISON: 01/10/2022 FINDINGS: There is hyperinflation of the lungs consistent with chronic obstructive lung disease (COPD). Increased opacity at the left lung base with obscuration of left hemidiaphragm and costophrenic angle. No pneumothorax. Normal size heart. Normal mediastinum and aniya. Normal visualized pulmonary arteries. There is atherosclerotic calcification of the aortic arch with tortuosity. There is demineralization of the osseous structures. Normal visualized ribs, clavicles, and shoulders. There is no demonstrated abnormality of the visualized soft tissue structures of the upper abdomen. RAD/Chest PA and Lateral IMPRESSION: Worsening left lower lobe airspace disease and pleural effusion. Electronically Signed: Roque Cain MD ([place]) at 12:43 EDT ,
[2022-02-12 12:38] LABS: Absolute Lymphocyte Count 1.24 X10^3/uL (0.83-4.51); Absolute Neutrophil Count 7.4 X10^3/uL (2.0-7.7); Basophil# 0.03 X10^3/uL; Basophil% 0.3 % (0-1); Eosinophil# 0.26 X10^3/uL; Eosinophils% 2.7 % (0-5); Hematocrit 32.3 % (37-47); Hemoglobin 9.8 g/dL (12.0-15.0); Lymphocyte # 1.24 X10^3/ul (0.83-4.51); Lymphocyte % 12.7 % (19-41); Mean Corp Hgb Conc 30.3 g/dL (32-36); Mean Corpuscular Hgb 29.5 pg (27.0-32.0); Mean Corpuscular Volume 97.3 fL (81-99); Mean Platelet Vol. 11.2 fl (6.2-12.0); Monocyte# 0.81 X10^3/uL; Monocyte% 8.3 % (0-10); NRBC Flagged by Analyzer 0 % (0-5); Neutrophil % 75.7 % (47-70); Platelet Count 146 K/mm3 (150-450); RBC Distribution Width CV 14.3 % (11.6-14.6); RBC Distribution Width SD 51.3 fl (35.1-43.9); Red Blood Count 3.32 M/mm3 (4.2-5.4); White Blood Count 9.8 K/mm3 (4.4-11.0)
[2022-02-12 12:42] LABS: Albumin, Serum 2.8 g/dL (3.2-5.0); BUN 21 mg/dL (7-18); BUN/Creat Ratio 14.9 RATIO (10-20); Creatinine, Serum 1.41 mg/dL (0.55-1.02); EST Glomerular Filtration Rate 38 mL/min (>60); Est Glom Filt Rate - Afr Amer 46 mL/min (>60); Estimated Creatinine Clearance 23.66 ml/min; Globulin 3.1 g/dL (2.2-4.2); Glucose 113 mg/dL (74-106); Protein, Total 5.9 g/dL (6.4-8.2)
[2022-02-12 12:43] LABS: ALB/GLOB Ratio 0.9 RATIO (0.9-2.4); AST(SGOT) 17 U/L (15-37); Alanine Aminotransfer ALT/SGPT 22 U/L (13-56); Alkaline Phosphatase 64 U/L (45-117); Anion Gap 6 (5-15); Calcium,Total 8.2 mg/dL (8.5-10.1); Chloride 108 mmol/L (98-107); Sodium Level 140 mmol/L (136-145)
[2022-02-12 12:45] LABS: International Normalized Ratio 1.7; Prothrombin Time (Protime)PT. 19.5 SECONDS (11.7-14.9)
[2022-02-12 12:55] LABS: Lactic Acid 1.8 mmol/L (0.4-1.9)
[2022-02-12 13:10] VITALS: PULSE 85; RESP 20; O2SAT 96
--- NOTE | 2022-02-12 13:42 | CT_ITS ---
EXAM: CT ANGIOGRAPHY CHEST WITHOUT AND WITH INTRAVENOUS CONTRAST CLINICAL INDICATION: Dyspnea, elevated D-dimer TECHNIQUE: Helically acquired angiography images were obtained of the chest without and with intravenous contrast. This CT exam was performed using one or more of the following dose reduction techniques: automated exposure control, adjustment of the mA and/or kV according to patient size, and/or use of iterative reconstruction technique. This report was created using [employer] report generation technology. MIP reconstructed images were created and reviewed. CONTRAST: IV 75mL [id number] COMPARISON: Chest radiograph 02/12/2022 FINDINGS: PULMONARY ARTERIES: Unremarkable. Normal in caliber. No evidence of pulmonary embolism. AORTA: Unremarkable. Normal in caliber. No evidence of dissection. GREAT VESSELS OF AORTIC ARCH: Unremarkable. Normal in caliber. No evidence of dissection. LUNGS AND PLEURAL SPACES: Moderate size left pleural effusion associated with pneumonia/atelectasis of the left lower lobe. Linear density within left upper lobe suggests scarring. Small right pleural effusion with minor atelectatic change right lower lung. Extensive diffuse pulmonary emphysema. No mass. HEART: Mild cardiomegaly. No pericardial effusion. No signs of right heart strain, ratio of right ventricle to left ventricle measures less than 1. MEDIASTINUM: Unremarkable. No mediastinal or hilar adenopathy. Esophagus is unremarkable. No hiatal hernia. THYROID: Unremarkable. No thyroid lesions. BONES/JOINTS: Unremarkable. No suspicious lytic or blastic abnormality. CT/CTA Chest W/WO Contrast IMPRESSION: 1. No evidence of acute pulmonary embolism. 2. Moderate size left pleural effusion with pneumonia/atelectasis of the left lower lobe. 3. Extensive pulmonary emphysema. 4. Cardiomegaly. Electronically Signed: Paulo Lopez MD at 14:27 EDT ,
[2022-02-12 15:34] VITALS: O2SAT 97
[2022-02-12] MEDS: Doxycycline 100 MG CAPSULE PO (16:13)
[2022-02-12 16:18] VITALS: BP 148/90; PULSE 91; RESP 17; O2SAT 96
== END 2022-02-12 16:21 | disposition home or self-care (01) ==
PROVIDERS: Emergency Provider Emergency Medicine; PCP Internal Medicine; Visit Provider Emergency Medicine
DX: J18.9 Pneumonia, unspecified organism (principal); J44.9 Chronic obstructive pulmonary disease, unspecified; E11.22 Type 2 diabetes mellitus with diabetic chronic kidney disease; I12.0 Hypertensive chronic kidney disease with stage 5 chronic kidney disease or end stage renal disease; N18.5 Chronic kidney disease, stage 5; R06.02 Shortness of breath; R63.4 Abnormal weight loss; F17.210 Nicotine dependence, cigarettes, uncomplicated; Z79.01 Long term (current) use of anticoagulants; Z86.718 Personal history of other venous thrombosis and embolism
CPT/HCPCS: 71046; 71275; 80053; 83605; 85025; 85379; 85610; 93005; 99285; Q9967; A4216

== ENCOUNTER 2022-02-16 23:12 | Inpatient (IN) | payer MEDICARE, MEDICAID, SELFPAY ==
[2022-02-16 23:13] VITALS: BP 155/94; PULSE 92; RESP 24; TEMP 36.9; O2SAT 95; BMI 16.2
[2022-02-16 23:24] VITALS: O2SAT 96
--- NOTE | 2022-02-16 23:37 | EKG12_ITS ---
Test Reason : DYSRHYTHMIA Blood Pressure : / mmHG Vent. Rate : 099 BPM Atrial Rate : 099 BPM P-R Int : 140 ms QRS Dur : 098 ms QT Int : 378 ms P-R-T Axes : 085 045 224 degrees QTc Int : 485 ms Normal sinus rhythm with occasional PVC's ST & T wave abnormality, consider inferolateral ischemia Prolonged QT Abnormal ECG Confirmed by ANURADHA GARAY, MARC ([id number]), newspaper photo editor LUIS MENDEZ ([id number]) on 02/18/2022 9:04:20 AM Referred By: DAYANA Confirmed By:MARC LING MD
--- NOTE | 2022-02-16 23:37 | RAD_ITS ---
EXAM: XR CHEST, 1 VIEW CLINICAL INDICATION: sob, check progression of pneumonia/effusion TECHNIQUE: Frontal view of the chest. This report was created using [employer] report generation technology. COMPARISON: Multiple prior studies including PET scan April 21, 2015 for pulmonary nodular focus of 12.7 mm left upper lobe 27.1 mm nodular focus most likely inflammatory process, 1.2 cm right lower lobe nodule noted on CT March 24 2015, numerous prior chest radiographs, hyperinflation with left lower lobe infiltrate and small left effusion noted January 18, 2022, worsening left lower lobe opacity and pleural effusion on February 12, 2022. FINDINGS: LUNGS AND PLEURAL SPACES: Compared to February 12, 2022 there is similar appearance of opacification of the left lower hemithorax with presumably parenchymal opacity and moderate effusion. No obvious hilar mass seen but complex appearance of the lungs including advanced COPD and mildly more nodular appearance of the previously linear small opacity in the left upper lobe. Also mild increased hazy opacity in the right lung base compared to 4 days ago and slight blunting of the right lateral costophrenic angle. Advanced COPD. No pneumothorax. HEART: Unremarkable. Cardiac silhouette not enlarged. MEDIASTINUM: Central airways and mediastinal contour are unremarkable. BONES/JOINTS: Unremarkable. SOFT TISSUES: Unremarkable. VASCULATURE: Tortuous apparent contour of the descending thoracic aorta which velocity mild aneurysm but is similar exams back to September 29, 2019. RAD/Chest 1 View (Portable) IMPRESSION: 1. Complex but stable exam with advanced COPD. Persistent stable moderate opacification of the left lower hemithorax compared to 4 days earlier. 2. Findings are likely due to to underlying left basilar pneumonia and effusion but postobstructive pneumonitis cannot be excluded in the appropriate clinical setting and close follow-up to resolution or consideration for follow-up enhanced CT are suggested. Electronically Signed: Marti Aguilar MD at 1:09 EDT ,
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
[2022-02-16 23:51] VITALS: O2SAT 95
[2022-02-16 23:52] LABS: Absolute Lymphocyte Count 0.44 X10^3/uL (0.83-4.51); Absolute Neutrophil Count 8.2 X10^3/uL (2.0-7.7); Basophil# 0.01 X10^3/uL; Basophil% 0.1 % (0-1); Hematocrit 31.6 % (37-47); Hemoglobin 9.6 g/dL (12.0-15.0); Lymphocyte # 0.44 X10^3/ul (0.83-4.51); Lymphocyte % 4.7 % (19-41); Mean Corp Hgb Conc 30.4 g/dL (32-36); Mean Corpuscular Hgb 29.4 pg (27.0-32.0); Mean Corpuscular Volume 96.9 fL (81-99); Mean Platelet Vol. 10.9 fl (6.2-12.0); Monocyte# 0.68 X10^3/uL; Monocyte% 7.2 % (0-10); NRBC Flagged by Analyzer 0 % (0-5); Neutrophil # 8.17 X10^3/uL (2.7-7.7); POSITIVE DIFFERENTIAL YES; Platelet Count 212 K/mm3 (150-450); RBC Distribution Width CV 14.9 % (11.6-14.6); Red Blood Count 3.26 M/mm3 (4.2-5.4); White Blood Count 9.4 K/mm3 (4.4-11.0)
[2022-02-16] MEDS: 0.9% Normal Saline 1,000 ML 100 ML IV (23:56)
[2022-02-16 23:57] VITALS: PULSE 101; RESP 32; RESP 36; O2SAT 95
[2022-02-16] MEDS: Ipratropium/Albuterol Sulfate 3 ML AMPUL.NEB INHALATION (23:57)
[2022-02-16] MEDS: Albuterol 2.5 MG/3 ML VIAL.NEB. INHALATION (23:57)
[2022-02-17] VITALS (23 sets, daily range): BP systolic 119–173; BP diastolic 58–99; PULSE 32–111; RESP 12–36; TEMP 36.1–37.1; O2SAT 95–100; BMI 15.5
[2022-02-17] LABS: Differential Indicated SCAN CRITERIA MET
--- NOTE | 2022-02-17 | FLU_PTH ---
PATIENT: ELIS SCRUGGS LOC: [facility] U#:[id number] AGE/SX: 81/F ROOM: [facility] RE02/17/[address]: Dr. Miles Bernabe MD : 1940 BED: 1 DIS: 02/24/2022 SPEC #: [id number] RECD: 02/17/22 12:56 STATUS: AMAURY RECoby #: [id number] STANLEY: 02/17/22 00:[address]: Ani Ding DEPT: CYTOLOGY RECD BY: Nely Yee ENTERED: 02/17/22 13:33 SP TYPE: Fluid OTHR DR: Valery Gallegos, FORM DESIGNER-C MD Dr. Reed Martinez, DO Dr. Miles Arreguin, MD Dr. Martha Oglesby Dr., MD Dr. Julie Ronyak, DO Karen Mas FORM DESIGNER-C Nida Neely FORM DESIGNER-C Faiza Avila, FORM DESIGNER-C Rina Clancy FORM DESIGNER-C Tissues: THORACIC FLUID Procedures: Special Stain Group II Surgery Specimen Level IV Cytospin Fluid HEADER OPERATION: Ultrasound-guided thoracentesis PRE-OP DIAGNOSIS: Pleural effusion TISSUE SUBMITTED: Thoracentesis fluid for cytology DIAGNOSIS CYTOLOGY Thoracentesis fluid for cytology (cytospin and cell block): Negative for malignant cells. See comment. CLINT:shady 02/18/2022 COMMENT Immunohistochemistry ([id number]) supports the above diagnosis. Clinical correlation and appropriate follow up are necessary. CYTOLOGY STUDY Slides are reviewed. CYTOLOGY GROSS Received is 90 ml of light yellow cloudy fluid labeled with the patient's name and and designated per the requisition as thoracentesis. Submitted for cytology preparation including cell block. / shady 02/17/2022 TC:5 CPT: 00205, 30529
--- NOTE | 2022-02-17 | IMM_PTH ---
PATIENT: LEIS SCRUGGS LOC: [facility] U#:[id number] AGE/SX: 81/F ROOM: [facility] RE02/17/[address]: Dr. Miles Bernabe MD : 1940 BED: 1 DIS: 02/24/2022 SPEC #: [id number] RECD: 02/18/22 13:04 STATUS: AMAURY REQ #: [id number] SATNLEY: 02/17/22 00:[address]: Ani Ding DEPT: IMMUNOHISTOCHEMISTRY RECD BY: Fawn Bird ENTERED: 02/18/22 13:05 SP TYPE: IMMUNO OTHR DR: Valery Gallegos, COURT ATTENDANT-C MD Dr. Reed Martinez, DO Dr. Miles Arreguin, MD Dr. Martha Oglesby Dr., MD Dr. Julie Ronyak, DO Karen Mas, COURT ATTENDANT-C Nida Neely, COURT ATTENDANT-C Faiza Avila, COURT ATTENDANT-C Rina Clancy, COURT ATTENDANT-C Tissues: THORACIC FLUID Procedures: Vipul Ret (add) CK20 (add) CK5-6 (add) CK7 (add) CK8 (add) MACRO (add) TTF1 (add) Vimentin (add) Pankeratin (initial) P40 (add) PHYSICIAN & [place] [id number] SPECIMEN INFORMATION: Tissue Source: Thoracentesis Clinical Info: Pleural effusion Specimen Number: [id number] CPT code: 55811, 16658 x9 METHODOLOGY: Deparaffinized sections of prefer/formalin-fixed tissue or PAP/DQ stained slides are incubated with monoclonal/polyclonal antibodies/oligonucleotide probes. Localization is made via biotin free immunoperoxidase method. Appropriate controls are performed and reacted as expected. Results on target cell population are indicated in the following table: RESULTS: ANTIBODY / CLONE RESULT AE1-3 (AE1/AE3/PCK26) negative CK7 (OV-TL12/30) negative* CK8 (11qxmsH34) negative* CK20 (KS20.8) negative Vimentin (V9) negative* Macro (HAM-56) negative TTF-1 (8G7G3/1) negative CALRET (polyclonal) negative* CK5-6 (D5 & 1684) negative* P40 (BC28) negative *Positive in mesothelial cells. These tests were developed and their performance characteristics determined by [facility]. They may not have been cleared or approved by the U.S. Food and Drug Administration. The FDA has determined that such clearance or approval is not necessary. The above immunohistochemical/dualISH markers are ordered and reviewed by the Pathologist. INTERPRETATION: Thoracentesis (cell block): Negative for malignant cells. SJ:joyce 02/19/2022
[2022-02-17 00:02] LABS: International Normalized Ratio 2.2; Prothrombin Time (Protime)PT. 23.7 SECONDS (11.7-14.9)
[2022-02-17 00:10] LABS: Anion Gap 9 (5-15); BUN 47 mg/dL (7-18); BUN/Creat Ratio 24.5 RATIO (10-20); Calcium,Total 7.6 mg/dL (8.5-10.1); Chloride 107 mmol/L (98-107); Creatinine, Serum 1.92 mg/dL (0.55-1.02); EST Glomerular Filtration Rate 27 mL/min (>60); Est Glom Filt Rate - Afr Amer 32 mL/min (>60); Estimated Creatinine Clearance 16.86 ml/min; Glucose 313 mg/dL (74-106); Potassium 4.3 mmol/L (3.5-5.1); Sodium Level 139 mmol/L (136-145); Troponin-I HS 97 pg/mL (3.0-54.0)
--- NOTE | 2022-02-17 00:12 | CPS ---
x1 Albuterol given to pt. as well
[2022-02-17 00:14] LABS: Differential Comment SCANNED
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
[2022-02-17 01:21] LABS: LDH 416 U/L (84-246)
--- NOTE | 2022-02-17 01:43 | US_ITS ---
PROCEDURE: ULTRASOUND GUIDED THORACENTESIS. DATE: 02/17/2022. INDICATION: Female, 81 years old. Left pleural effusion. PHYSICIAN: Yahir Healy M.D. PROCEDURE: The risks, benefits, and alternatives to the procedure were explained to the patient. The specific risks of bleeding, infection, and pneumothorax requiring chest tube insertion were discussed and accepted. Written informed consent was obtained. Ultrasonographic evaluation of the left lower pleural space was carried out. An adequate pocket was identified. The patient was placed in the sitting, upright position. The overlying skin was prepped and draped in sterile fashion. 1% lidocaine was administered subcutaneously for local anesthesia. Under ultrasound guidance, a 5 [place] thoracentesis needle/catheter system was advanced into the left posterior lower pleural fluid collection. Approximately 600 mL of hannah-colored fluid was drained. The catheter was removed, and a sterile dressing was applied. A specimen was collected and sent to the laboratory for analysis, as requested by the referring clinician. The patient tolerated the procedure well. A chest x-ray was ordered. US/Thoracentesis W US IMPRESSION: Ultrasound-guided left thoracentesis. Electronically Signed: Yahir Healy MD at 13:15 EDT ,
[2022-02-17] MEDS: Phytonadione (Vit K1) 5 MG TABLET PO (02:27)
[2022-02-17 02:33] LABS: Globulin 2.9 g/dL (2.2-4.2); Protein, Total 5.8 g/dL (6.4-8.2); Troponin-I HS 91 pg/mL (3.0-54.0)
[2022-02-17] MEDS: levoFLOXacin IV 500 MG/100 ML BAG 100 MG IV (03:15)
[2022-02-17] MEDS: 0.9% Normal Saline 1,000 ML 75 ML IV (03:19)
[2022-02-17] MEDS: Ipratropium/Albuterol Sulfate 3 ML AMPUL.NEB INHALATION ×5 (04:58→23:38)
[2022-02-17 06:13] LABS: Absolute Lymphocyte Count 1.39 X10^3/uL (0.83-4.51); Absolute Neutrophil Count 11.9 X10^3/uL (2.0-7.7); Basophil# 0.01 X10^3/uL; Basophil% 0.1 % (0-1); Hematocrit 30.2 % (37-47); Hemoglobin 9.2 g/dL (12.0-15.0); Lymphocyte # 1.39 X10^3/ul (0.83-4.51); Lymphocyte % 9.1 % (19-41); Mean Corp Hgb Conc 30.5 g/dL (32-36); Mean Corpuscular Hgb 29.5 pg (27.0-32.0); Mean Corpuscular Volume 96.8 fL (81-99); Mean Platelet Vol. 10.9 fl (6.2-12.0); Monocyte# 1.83 X10^3/uL; NRBC Flagged by Analyzer 0.1 % (0-5); Neutrophil # 11.86 X10^3/uL (2.7-7.7); Neutrophil % 77.8 % (47-70); POSITIVE DIFFERENTIAL YES; Platelet Count 235 K/mm3 (150-450); RBC Distribution Width SD 53.6 fl (35.1-43.9); Red Blood Count 3.12 M/mm3 (4.2-5.4); White Blood Count 15.3 K/mm3 (4.4-11.0)
[2022-02-17 06:18] LABS: Differential Indicated SCAN CRITERIA MET
[2022-02-17 06:24] LABS: International Normalized Ratio 2.5; Prothrombin Time (Protime)PT. 26.6 SECONDS (11.7-14.9)
[2022-02-17] MEDS: Insulin Lispro 100 UNIT/ML INSULN.PEN SC (06:25)
[2022-02-17 06:38] LABS: Differential Comment SCANNED
[2022-02-17 06:55] LABS: Bedside Glucose 197 mg/dL (74-106)
[2022-02-17 06:57] LABS: Troponin-I HS 96 pg/mL (3.0-54.0)
[2022-02-17 07:07] LABS: ALB/GLOB Ratio 0.9 RATIO (0.9-2.4); AST(SGOT) 218 U/L (15-37); Alanine Aminotransfer ALT/SGPT 291 U/L (13-56); Albumin, Serum 2.7 g/dL (3.2-5.0); Alkaline Phosphatase 78 U/L (45-117); Anion Gap 14 (5-15); BUN 42 mg/dL (7-18); BUN/Creat Ratio 24.7 RATIO (10-20); Calcium,Total 6.9 mg/dL (8.5-10.1); Chloride 108 mmol/L (98-107); EST Glomerular Filtration Rate 31 mL/min (>60); Est Glom Filt Rate - Afr Amer 37 mL/min (>60); Estimated Creatinine Clearance 18.12 ml/min; Globulin 2.9 g/dL (2.2-4.2); Glucose 205 mg/dL (74-106); Potassium 4.5 mmol/L (3.5-5.1); Protein, Total 5.6 g/dL (6.4-8.2); Sodium Level 137 mmol/L (136-145)
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
[2022-02-17] MEDS: Albuterol 2.5 MG/3 ML VIAL.NEB. INHALATION (09:50)
--- NOTE | 2022-02-17 10:10 | CASEMGMT ---
Dr. Ding placed order for palliative c/s. Referral e-mailed to palliative at this time. Génesis CHAPA CM
--- NOTE | 2022-02-17 12:30 | NURSING ---
1156-Spoke with Sayra radiology technician regarding FFP running and will not be done until middle of thoracentesis. Per Sayra, it is ok for pt to come down with FFP running. 1215-pt transported to ultrasound for thoracentesis. Handoff given to superintendent police, advised of FFP running and next set of TAR VS.
[2022-02-17] MEDS: Lidocaine 2% (20 ml mdv) 20 ML Vial INFILT (12:45)
--- NOTE | 2022-02-17 12:53 | RAD_ITS ---
STUDY: X-RAY CHEST REASON FOR EXAM: Female, 81 years old. Post thoracentesis TECHNIQUE: AP inspiration and expiration views. COMPARISON: Comparison is made with prior examination 02/16/2022. FINDINGS: The patient is status post left thoracentesis. No evidence of pneumothorax. Mild residual pleural-parenchymal changes at the left lung base. RAD/Chest Insp/Exp 2 View IMPRESSION: Status post left thoracentesis. No evidence of pneumothorax. Mild residual pleural-parenchymal changes at the left lung base. Electronically Signed: Yahir Healy MD at 13:13 EDT ,
[2022-02-17 12:58] LABS: Cytology, Body Fluid / CSF SEE PATHOLOGY REPORT
[2022-02-17 13:43] LABS: Pathologist Review Reviewed
[2022-02-17] MEDS: Atenolol 25 MG Tablet 12.5 MG PO (13:50)
[2022-02-17] MEDS: amLODIPine 5 MG Tablet PO (13:50)
[2022-02-17] MEDS: Pantoprazole Sodium 20 MG Tablet PO (13:50)
[2022-02-17 13:54] LABS: Body Fluid Mononuclear WBC % 95.6 %; Body Fluid Polynuclear WBC # 0.018 10^3/uL; Body Fluid Polynuclear WBC % 4.4 %; Body Fluid Total Cells Counted 0.515 10^3/ul; White Blood Count/Body Fluid 0.408 10^3/uL
--- NOTE | 2022-02-17 14:03 | PN.HOSP_ITS ---
Subjective Subjective Patient with marked work of breathing upon my examination. Is begging for relief. We have started BiPAP immediately which has resulted in improved respiratory function and decreased work of breathing. Patient did indicate that she has had pneumonia for a month and has been on multiple antibiotics without any resolution. She was to see Dr. Cuello yesterday for consideration for thoracentesis however she came to emergency department instead because her breathing was so problematic for her at home. She was smoking up until 2 weeks ago. Per discussion with Dr. Cuello he has encouraged her to have further testing including echocardiogram as well as pulmonary function test but she has not yet completed these. Objective Data Objective Data Vital Signs: Vital Signs Temp Pulse Resp BP Pulse Ox 98.6 F 103 H 28 H 129/76 H 95 02/17/22 13:00 02/17/22 13:00 02/17/22 13:00 02/17/22 13:00 02/17/22 13:00 Oxygen Flow Rate (L/min) [4] 3 Oxygen Flow Rate (L/min) [3] 3 Oxygen Flow Rate (L/min) [2] 3 Oxygen Flow Rate (L/min) [1 ( 3 Initial Baseline)] Oxygen Flow Rate (L/min) 2 Oxygen Delivery Method [4] Nasal Cannula Oxygen Delivery Method [3] Nasal Cannula Oxygen Delivery Method [2] Nasal Cannula Oxygen Delivery Method [1 ( Nasal Cannula Initial Baseline)] Oxygen Delivery Method Nasal Cannula Weight: 43.5 kg Body Mass Index (BMI) 15.5 Intake & Output: Intake and Output for Last 24 Hours 02/15/22 02/16/22 02/17/22 23:59 23:59 23:59 Intake Total 1752.5 / 1752.5 Output Total 600 / 600 Balance 1152.5 / 1152.5 Medical Nutrition Assessment Dietitian: Malnutrition Criteria Met Start: 02/17/22 13: 06 Freq: Status: Active Protocol: Document 02/17/22 13:08 LORNA (Rec: 02/17/22 13:08 [id number]) Nutrition Malnutrition Evidence of Malnutrition Exists Yes Malnutrition (severe): Chronic Evidenced By Suboptimal Energy Intake ( Severe),Physical Changes ( Severe) Clinical Problem Chronic Disease or Condition Related Malnutrition Etiology severe, chronic malnutrition related to inadequate energy intake w/ increased energy needs due to pulmonary disease Signs/Symptoms as evidenced by estimated energy intake meeting <75% of estimated energy needs >3 months; severe muscle wasting/ fat loss evident per physical exam- depletion noted in orbital areas, temples, scapula, lower extremities; protrusion of clavicle, acromion process; BMI 15.5 Status Active Problem Recommendation Dietitian Recommendations/Changes Will change diet to regular, no added salt, gluten free diet given severe malnutrition ; will adjust ONS from Ensure Enlive to Nepro CarbSteady 120mL 4x/day. Will monitor PO intake, labs, wt, and adjust diet as indicated. Lab / Micro Data Result Diagrams: 02/17/22 05:20 02/17/22 05:20 Labs: Laboratory Results - last 24 hr 02/16/22 23:20: WBC 9.4, RBC 3.26 L, Hgb 9.6 L, Hct 31.6 L, MCV 96.9, MCH 29.4, MCHC 30.4 L, RDW Std Deviation 53.0 H, RDW Coeff of Oly 14.9 H, Plt Count 212, MPV 10.9, Immature Gran % (Auto) 1.000 H, Neut % (Auto) 87.0 H, Lymph % (Auto) 4.7 L, [place] % (Auto) 7.2, Eos % (Auto) 0.0, Baso % (Auto) 0.1, Absolute Neuts (auto) 8.2 H, Absolute Lymphs (auto) 0.44 L, Nucleated RBC % 0, Differential Comment SCANNED 02/16/22 23:20: Sodium 139, Potassium 4.3, Chloride 107, Carbon Dioxide 23.0, Anion Gap 9, BUN 47 H, Creatinine 1.92 H, Estim Creat Clear Calc 16.86, Est GFR (MDRD) Af Amer 32 L, Est GFR (MDRD) Non-Af 27 L, BUN/Creatinine Ratio 24.5 H, Glucose 313 H, Calcium 7.6 L, Troponin I High Sens 97 H 02/16/22 23:20: PT 23.7 H, INR 2.2 02/16/22 23:20: Lactate Dehydrogenase 416 H 02/17/22 02:10: Troponin I High Sens 91 H, Total Protein 5.8 L, Globulin 2.9, Albumin/Globulin Ratio 1.0 02/17/22 05:20: WBC 15.3 H, RBC 3.12 L, Hgb 9.2 L, Hct 30.2 L, MCV 96.8, MCH 29.5, MCHC 30.5 L, RDW Std Deviation 53.6 H, RDW Coeff of Oly 15.0 H, Plt Count 235, MPV 10.9, Immature Gran % (Auto) 1.000 H, Neut % (Auto) 77.8 H, Lymph % (Auto) 9.1 L, [place] % (Auto) 12.0 H, Eos % (Auto) 0.0, Baso % (Auto) 0.1, Absolute Neuts (auto) 11.9 H, Absolute Lymphs (auto) 1.39, Nucleated RBC % 0.1, Differential Comment SCANNED, Diff Path Review Reviewed 02/17/22 05:20: PT 26.6 H, INR 2.5 02/17/22 05:20: Sodium 137, Potassium 4.5, Chloride 108 H, Carbon Dioxide 15.0 L , Anion Gap 14, BUN 42 H, Creatinine 1.70 H, Estim Creat Clear Calc 18.12, Est GFR (MDRD) Af Amer 37 L, Est GFR (MDRD) Non-Af 31 L, BUN/Creatinine Ratio 24.7 H , Glucose 205 H, Calcium 6.9 L, Total Bilirubin 0.40, AST 218 H, ALT 291 H, Alkaline Phosphatase 78, Total Protein 5.6 L, Albumin 2.7 L, Globulin 2.9, Albumin/Globulin Ratio 0.9 02/17/22 05:20: Troponin I High Sens 96 H 02/17/22 06:22: POC Glucose 197 H 02/17/22 09:45: Blood Type B NEGATIVE, Antibody Screen NEGATIVE 02/17/22 12:45: Fluid WBC 0.408, Fluid Tot Cell Count 0.515 H, Fld Polynuclear WBCs # 0.018, Fld Polynuclear WBCs % 4.4, Fluid Mononuclear WBCs 0.390, Fld Mononuclear WBCs % 95.6 Micro: Microbiology 02/17/22 12:08 Urine, Random Streptococcus pneumoniae Antigen (M - Final 02/17/22 12:05 Urine, Clean Catch Legionella Antigen - Final Radiography Diagnostic Testing: Radiology Impression Chest X-Ray 02/16/22 23:37 IMPRESSION: 1. Complex but stable exam with advanced COPD. Persistent stable moderate opacification of the left lower hemithorax compared to 4 days earlier. 2. Findings are likely due to to underlying left basilar pneumonia and effusion but postobstructive pneumonitis cannot be excluded in the appropriate clinical setting and close follow-up to resolution or consideration for follow-up enhanced CT are suggested. Electronically Signed: Marti Aguilar MD at 1:09 EDT , Chest X-Ray 02/17/22 12:53 IMPRESSION: Status post left thoracentesis. No evidence of pneumothorax. Mild residual pleural-parenchymal changes at the left lung base. Electronically Signed: Yahir Healy MD at 13:13 EDT , Assessment & Plan Assessment/Plan (1) Acute respiratory failure with hypoxia: (2) Pleural effusion: (3) Acute exacerbation of COPD with asthma: (4) COPD with acute exacerbation: (5) Warfarin-induced coagulopathy: (6) Elevated troponin: (7) RENE (acute kidney injury): (8) Severe malnutrition: PLAN: Acute hypoxic respiratory failure secondary to COPD exacerbation and left pleural effusion -Doubt an acute pneumonia -Start noninvasive ventilation and wean as able -Okay to keep sats 88 to 92% as I suspect she probably is a chronic CO2 retainer -May need supplemental oxygen at discharge -Increase Solu-Medrol to 40 every 8 -Continue scheduled and as needed bronchodilators -We will continue empiric antibiotics at this time -Thoracentesis with labs ordered for later today--> preprocedure FFP given for INR of 2.5 -Continue Mucinex -If pleural fluid appears to be exudative we will plan for postprocedure CT scan to rule out malignancy if appears transudative we will check echocardiogram as I do suspect she likely has pulmonary artery hypertension/CHF -Pulmonary consult placed--> patient is familiar to Dr. Cuello Left pleural effusion -Thoracentesis today -Studies in place Troponin elevation -Suspect supply demand mismatch with considerable hypoxia and respiratory distress -No chest pain or other symptoms -No reason to cycle cardiac enzymes any further -Need to consider outpatient stress testing once patient's clinical status has improved from a pulmonary standpoint RENE -Baseline serum creatinine is approximately 1.3-1.4 -1.9 on admission -Serum creatinine improved today to 1.7 -We will discontinue IV fluids for now -Repeat lab in a.m. Severe malnutrition with pulmonary cachexia -Patient indicates she has had approximately 10 pound weight loss in the last month -Overall presentation is concerning for potential malignancy and work-up is in progress -Consult dietitian -Add Ensure 3 times daily COPD -Patient appears to have pretty severe COPD of imaging -Consult palliative care -Start as needed Roxanol for dyspnea with hold parameters for sedation -Pulmonary toilet as above -Hold home inhalers DM-2 with iatrogenic hyperglycemia -Fasting sugar this morning is 205 -Add sliding scale -Accu-Cheks before meals and at bedtime -Hold home antihyperglycemics Hypertension -Continue home amlodipine -Continue home atenolol GERD -Continue omeprazole Hyperlipidemia -Continue simvastatin History of DVT -Continue home Coumadin -FFP given for procedure -INR this morning is 2.5 -Check INR daily especially with antibiotic use Vitamin D deficiency -Hold ergocalciferol and restart on discharge DVT prophylaxis -Patient is fully anticoagulated with an INR of 2.5 CODE STATUS -Full code
[2022-02-17 14:05] LABS: Appearance/Body Fluid SL CLDY; Auto B Fluid Analyzer BKGD Ct COUNTS W/IN LIMITS (W/IN LIMITS); Color/Body Fluid LT YEL; Source- Body Fluid THORACENTESIS
[2022-02-17 14:10] LABS: Bedside Glucose 75 mg/dL (74-106)
--- NOTE | 2022-02-17 14:10 | CASEMGMT ---
EDUARD WHITLOCK assessment: Face to Face with patient for initial transition planning/care coordination assessment. RN KAMLESH introduced self and role at [facility], pt voices understanding and consents to assessment. Pt is lying in bed in with some tachypnea on 3Lnc. Pt is A/Ox4 and answers all questions appropriately. Care providers, pharmacy, and demographics verified. Presentation: Pt w/ increased SOB w/ exertion and lying down Admitting dx: Pna, pleural effusion PCP: Connie Specialists: xiomy Cuello; bernabe Hayes Preferred Pharmacy: [facility] Insurance: AnthMCR/HILDA-pt states is switching to [facility] dual MCR/HILDA starting 02/21/22 Prescription Benefit: Yes Living Will/HPOA: Pt does not have LW/HPOA but would like to complete at this time. ARABELLA aware. LNOK: Taylor Montez, daughter; Brenda Cobian, daughter Living Arrangements: Pt lives alone in apartment with no steps in(has elevator) and states no concerns at home. Pt is independent with ADL's. Transportation: Pt drives self and states no transportation concerns. DME/HHC: Pt has no current DME or need for any further DME. Pt states no preference for DME company, if qualifies for oxygen at discharge. Pt states no hx of HHC or SNF. Pt does have an aide for 3 hours one day a week and states has a nurse every couple months. Pt states has CM thru [facility], Fabi BELL aware, voices understanding. Pt states no concerns with going home at time of discharge. Pt is retired. Pt states quit smoking about 2 weeks ago and does not drink ETOH. Pt voices no further concerns/needs. CM to follow for therapy notes, home oxygen testing, and any further discharge planning/needs. Advised pt to ask for CM if any further questions/concerns/needs arise, voices understanding. Pt goal: Home Plan: [place] [facility]
[2022-02-17 14:11] LABS: Glucose, Body Fluid 120 mg/dL (40-70); LDH,Body Fluid 52 Units/l (Not Establ.)
--- NOTE | 2022-02-17 14:34 | CASEMGMT ---
Social Work SW received referral for advance directives. SW met with pt and offered to complete documents. Pt stating she is feeling short of breath at this time and does not feel up to completing documents. Pt requesting to discuss this tomorrow. SW will followup tomorrow as time allows. YOSSI Nagy
--- NOTE | 2022-02-17 15:01 | CHAPLAIN ---
Type of Pastoral Visit _x__ Initial Visit ___ Follow-up Visit ___ On-call Visit ___ General Patient Visit ___ Spiritual Assessment ___ Family Conference ___ Bereavement ___ Rapid Response ___ Code Blue ___ Other (describe below) Pastoral Care Referral From _x__ Patient ___ Family ___ Nurse ___ Physician ___ Quantitative Consultant ___ Cloth Printing Inspector ___ Other (describe below) Sacrament/Intervention _x__ Active listening ___ Anointing ___ Temple ___ Bereavement ___ Communion ___ Sandhya exploration ___ ___ Life review _x__ Prayer ___ Reconciliation ___ Sacrament of Sick _x__ Supportive presence ___ Wedding ___ Other (describe below) Pastoral Comments patient is asking for prayer for recovery and health; pt states that she has difficulty with talking much and just wants to have prayer at this time; pt does say that her goal is to get well to go home again; pt states she has a daughter and grandson at the hospital eating lunch and they are available to give support
[2022-02-17 15:11] LABS: Lymphocytes 72 %; Monocytes 16 %; Neutrophil (Segs) 4 %; Other Cell Type/BF 8 %
[2022-02-17 15:12] LABS: Body Fluid QC Type(s) BF1Q; Red Cell Count/Body Fluid 6 /mm3
[2022-02-17] MEDS: morphine (oral solution) 10MG/0.5ML Syringe 2.5 MG PO ×2 (15:28→22:12)
[2022-02-17 16:26] LABS: Bedside Glucose 100 mg/dL (74-106)
[2022-02-17] MEDS: 0.9% Saline Lock 10 ML Syringe IV (21:45)
[2022-02-17] MEDS: Atorvastatin Calcium 10 MG Tablet PO (21:57)
[2022-02-17] MEDS: levoFLOXacin IV 250 MG/50 ML BAG 50 MG IV (22:22)
[2022-02-17 23:46] LABS: Bedside Glucose 145 mg/dL (74-106)
[2022-02-18] VITALS (13 sets, daily range): BP systolic 116–126; BP diastolic 64–95; PULSE 81–91; RESP 12–27; TEMP 36.6–36.8; O2SAT 95–100
[2022-02-18] MEDS: Ipratropium/Albuterol Sulfate 3 ML AMPUL.NEB INHALATION ×5 (03:40→19:30)
--- NOTE | 2022-02-18 05:34 | ECHOD_ITS ---
Reason For Study: PULMONARY HYPERTENSION Procedure This was a 2D Doppler, Color Flow transthoracic echocardiogram. Exam performed portable in patient room. Left Ventricle Severely dilated left ventricle. The estimated ejection fraction is 15-20 %. Right Ventricle Mildly dilated right ventricle. Mild to moderate global right ventricular systolic dysfunction. Atria The left atrium is severely enlarged. The right atrium is mildly enlarged. Mitral Valve The mitral valve is structurally normal. No prolapse or stenosis seen. Mild (1+) mitral valve insufficiency. Tricuspid Valve Normal tricuspid valve. Mild tricuspid valve insufficiency. Aortic Valve Normal aortic valve. Pulmonic Valve The pulmonic valve is not well visualized. Great Vessels Normal aortic root. Pericardium/Pleural No pericardial effusion. MMode/2D Measurements & Calculations LVIDd: 5.0 cm IVSd: 1.1 cm Ao root diam: 3.1 cm LVIDs: 4.6 cm LVPWd: 1.1 cm RVDd: 3.1 cm FS: 7.3 % LAV(MOD-bp): 49.0 ml LVAd ap4: 27.5 cm2 SV(MOD-sp4): 20.7 ml LAV(MOD-bp) Indexed: 33.6 ml/m2 LVLd ap4: 6.4 cm LAV(MOD-sp2): 53.1 ml EDV(MOD-sp4): 98.3 ml LAV(MOD-sp4): 46.1 ml EDV(sp4-el): 100.1 ml LVAs ap4: 23.6 cm2 LVLs ap4: 5.9 cm ESV(MOD-sp4): 77.7 ml ESV(sp4-el): 80.1 ml EF(MOD-sp4): 21.0 % EF(sp4-el): 20.0 % SV(sp4-el): 20.0 ml LA A4 area: 17.6 cm2 LA dimension(2D): 3.9 cm RA A4 area: 14.8 cm2 Time Measurements MV dec time: 0.13 sec Doppler Measurements & Calculations MV E max jose r: 83.9 cm/sec Lat Peak E' Jose R: 5.7 cm/sec Med Peak E' Jose R: 3.1 cm/sec MV A max jose r: 52.9 cm/sec E/E' lat: 14.7 E/E' med: 27.0 MV E/A: 1.6 Ao V2 max: 103.8 cm/sec LV V1 max: 70.3 cm/sec PA V2 max: 79.4 cm/sec Ao max P.3 mmHg LV V1 max P.0 mmHg TR max jose r: 285.1 cm/sec TR max P.5 mmHg ECHO/Echo Complete Interpretation Summary The estimated ejection fraction is 15-20 %. Severe Global LV Hypokinesia Inferobasal aneurysmal Mild MR Mild TR significant change with worsening LV systolic function from Echo 04/12/2020 Ordering Physician: Baltazar Cuello Referring Physician: GEE OROURKE Performed By: Tamar López RDCS
[2022-02-18 05:41] LABS: Absolute Lymphocyte Count 0.54 X10^3/uL (0.83-4.51); Absolute Neutrophil Count 9.6 X10^3/uL (2.0-7.7); Basophil# 0.01 X10^3/uL; Basophil% 0.1 % (0-1); Hematocrit 31.4 % (37-47); Hemoglobin 9.6 g/dL (12.0-15.0); Lymphocyte # 0.54 X10^3/ul (0.83-4.51); Lymphocyte % 5.1 % (19-41); Mean Corp Hgb Conc 30.6 g/dL (32-36); Mean Corpuscular Hgb 29.6 pg (27.0-32.0); Mean Corpuscular Volume 96.9 fL (81-99); Mean Platelet Vol. 10.9 fl (6.2-12.0); Monocyte% 3.8 % (0-10); NRBC Flagged by Analyzer 0 % (0-5); Neutrophil # 9.59 X10^3/uL (2.7-7.7); Neutrophil % 90.5 % (47-70); POSITIVE DIFFERENTIAL YES; Platelet Count 165 K/mm3 (150-450); RBC Distribution Width CV 15.1 % (11.6-14.6); RBC Distribution Width SD 54.1 fl (35.1-43.9); Red Blood Count 3.24 M/mm3 (4.2-5.4); White Blood Count 10.6 K/mm3 (4.4-11.0)
[2022-02-18 05:52] LABS: International Normalized Ratio 1.4; Prothrombin Time (Protime)PT. 16.9 SECONDS (11.7-14.9)
[2022-02-18 06:05] LABS: Differential Indicated SCAN CRITERIA MET
[2022-02-18 06:16] LABS: Anion Gap 10 (5-15); BUN 54 mg/dL (7-18); BUN/Creat Ratio 34.8 RATIO (10-20); Calcium,Total 7.6 mg/dL (8.5-10.1); Chloride 109 mmol/L (98-107); Creatinine, Serum 1.55 mg/dL (0.55-1.02); EST Glomerular Filtration Rate 34 mL/min (>60); Est Glom Filt Rate - Afr Amer 41 mL/min (>60); Estimated Creatinine Clearance 19.79 ml/min; Glucose 176 mg/dL (74-106); Potassium 4.6 mmol/L (3.5-5.1); Sodium Level 138 mmol/L (136-145)
[2022-02-18 06:22] LABS: Anisocytosis 1+; Differential Comment SCANNED
[2022-02-18] MEDS: 0.9% Saline Lock 10 ML Syringe IV (06:50)
[2022-02-18] MEDS: Insulin Lispro 100 UNIT/ML INSULN.PEN SC ×3 (06:55→23:05)
[2022-02-18 07:00] LABS: Bedside Glucose 184 mg/dL (74-106)
[2022-02-18 07:31] LABS: LDH 304 U/L (84-246)
--- NOTE | 2022-02-18 07:39 | PCM.PN.INT ---
Assessment & Plan Assessment/Plan (1) Respiratory failure, acute: QUALIFIERS: Respiratory failure complication: hypoxia Qualified Code(s): J96.01 - Acute respiratory failure with hypoxia (2) Warfarin-induced coagulopathy: (3) Left lower lobe pneumonia: QUALIFIERS: Pneumonia type: due to unspecified organism Qualified Code(s): J18.9 - Pneumonia, unspecified organism PLAN: . RECOMMENDATIONS: 1. Continue steroids, bronchodilators and empiric antibiotics 2. Walking oximetry prior to discharge 3. Okay to reinitiate Coumadin therapy 4. Possible need for sliding scale insulin given increase steroids 5. Obtain echocardiogram IMPRESSIONS: 1. Acute hypoxic respiratory insufficiency in the setting of COPD and a left transudative pleural effusion Patient with continued smoking and COPD for several years. Outpatient work-up was ordered, but not completed. Review of CT scan from 4 days ago to 2014 shows significant progression and emphysematous changes. Patient also has a complication of a left pleural effusion. Patient was 600 cc removed with thoracentesis. This appears to be transudate by laboratory work-up. We will repeat echocardiogram to evaluate for pulmonary hypertension as an etiology. Patient has had significant worsening in emphysematous changes. Continue with steroids and bronchodilators. Patient will need a walking oximetry prior to discharge. 2. Acute kidney injury Clinical suspicion for prerenal etiology. Patient's baseline creatinine is approximately 1.4, but this has increased to 1.92. Patient has received some IV fluids with improvement in creatinine. Clinical suspicion that her true baseline should be below 1 given patient's low BMI. 3. Elevated troponin Clinical suspicion for supply demand mismatch given hypoxia and respiratory condition. There is been no significant environmental change analyst the course of the hospitalization. Likely okay to stop monitoring from my perspective. Outpatient work-up may be indicated 4. History of DVT/chronic anemia/type 2 diabetes mellitus/hypertension/low BMI Complicates care, management, recovery and prognosis. No indication for transfusion at this time. Patient will likely require increase sliding scale insulin given need for steroid therapy. Coumadin will be reversed given problem #1. Consider dietitian evaluation Subjective Subjective Patient did okay overnight. The patient did have a thoracentesis yesterday and tolerated it well with subjective improvement in overall condition. However, patient continues to report significant shortness of breath with any exertion such as going to the bathroom. Patient is not reporting much of a productive cough. No bleeding complications have been reported. Objective Data Objective Data Vital Signs: Vital Signs Temp Pulse Resp BP Pulse Ox 36.8 C 81 27 H 125/95 H 97 02/18/22 03:13 02/18/22 03:41 02/18/22 03:41 02/18/22 03:13 02/18/22 03:41 Oxygen Flow Rate (L/min) [4] 3 Oxygen Flow Rate (L/min) [3] 3 Oxygen Flow Rate (L/min) [2] 3 Oxygen Flow Rate (L/min) [1 ( 3 Initial Baseline)] Oxygen Flow Rate (L/min) 2 Oxygen Delivery Method [4] Nasal Cannula Oxygen Delivery Method [3] Nasal Cannula Oxygen Delivery Method [2] Nasal Cannula Oxygen Delivery Method [1 ( Nasal Cannula Initial Baseline)] Oxygen Delivery Method Bi-pap Weight: 43.3 kg Body Mass Index (BMI) 15.5 Intake & Output: Intake and Output for Last 24 Hours 02/16/22 02/17/22 02/18/22 23:59 23:59 23:59 Intake Total 2222.5 / 2462.5 240 / 240 Output Total 600 / 600 Balance 1622.5 / 1862.5 240 / 240 Medical Nutrition Assessment Dietitian: Malnutrition Criteria Met Start: 02/17/22 13:06 Freq: Status: Active Protocol: Document 02/17/22 13:08 (Rec: 02/17/22 13:08 [id number]) Nutrition Malnutrition Evidence of Malnutrition Exists Yes Malnutrition (severe): Chronic Evidenced By Suboptimal Energy Intake ( Severe),Physical Changes ( Severe) Clinical Problem Chronic Disease or Condition Related Malnutrition Etiology severe, chronic malnutrition related to inadequate energy intake w/ increased energy needs due to pulmonary disease Signs/Symptoms as evidenced by estimated energy intake meeting <75% of estimated energy needs >3 months; severe muscle wasting/ fat loss evident per physical exam- depletion noted in orbital areas, temples, scapula, lower extremities; protrusion of clavicle, acromion process; BMI 15.5 Status Active Problem Recommendation Dietitian Recommendations/Changes Will change diet to regular, no added salt, gluten free diet given severe malnutrition ; will adjust ONS from Ensure Enlive to Nepro CarbSteady 120mL 4x/day. Will monitor PO intake, labs, wt, and adjust diet as indicated. Lab / Micro Data Result Diagrams: 02/18/22 05:34 02/18/22 05:34 Labs: Laboratory Results - last 24 hr 02/17/22 05:20: Diff Path Review Reviewed 02/17/22 09:45: Blood Type B NEGATIVE, Antibody Screen NEGATIVE 02/17/22 11:54: POC Glucose 75 02/17/22 12:45: Fluid Glucose 120 H, Fluid Total Protein 1.0, Fluid LDH 52 02/17/22 12:45: Fluid Source THORACENTESIS, Fluid Color LT YEL, Fluid Appearance SL CLDY, Fluid WBC 0.408, Fluid RBC 6, Fluid Tot Cell Count 0.515 H, Fld Polynuclear WBCs # 0.018, Fld Polynuclear WBCs % 4.4, Fluid Mononuclear WBCs 0.390, Fld Mononuclear WBCs % 95.6, Fluid Neutrophils 4, Fluid Lymphocytes 72, Fluid Monocytes 16, Fluid Other Cells 8, Fl Pathologist Comment May follow, Fluid Comment 2 SEE COMMENT 02/17/22 16:17: POC Glucose 100 02/17/22 21:55: POC Glucose 145 H 02/18/22 05:34: WBC 10.6, RBC 3.24 L, Hgb 9.6 L, Hct 31.4 L, MCV 96.9, MCH 29.6, MCHC 30.6 L, RDW Std Deviation 54.1 H, RDW Coeff of Oly 15.1 H, Plt Count 165, MPV 10.9, Immature Gran % (Auto) 0.500, Neut % (Auto) 90.5 H, Lymph % (Auto) 5.1 L, Norton % (Auto) 3.8, Eos % (Auto) 0.0, Baso % (Auto) 0.1, Absolute Neuts (auto) 9.6 H, Absolute Lymphs (auto) 0.54 L, Nucleated RBC % 0, Differential Comment SCANNED, Anisocytosis 1+ 02/18/22 05:34: PT 16.9 H, INR 1.4 02/18/22 05:34: Sodium 138, Potassium 4.6, Chloride 109 H, Carbon Dioxide 19.0 L, Anion Gap 10, BUN 54 H, Creatinine 1.55 H, Estim Creat Clear Calc 19.79, Est GFR (MDRD) Af Amer 41 L, Est GFR (MDRD) Non-Af 34 L, BUN/Creatinine Ratio 34.8 H, Glucose 176 H, Calcium 7.6 L 02/18/22 05:34: Lactate Dehydrogenase 304 H 02/18/22 06:53: POC Glucose 184 H Micro: Microbiology 02/17/22 12:08 Urine, Random Streptococcus pneumoniae Antigen (M - Final 02/17/22 12:05 Urine, Clean Catch Legionella Antigen - Final Radiography Diagnostic Testing: Radiology Impression Thoracentesis Ultrasound 02/17/22 01:43 IMPRESSION: Ultrasound-guided left thoracentesis. Electronically Signed: Yahir Healy MD at 13:15 EDT , Chest X-Ray 02/17/22 12:53 IMPRESSION: Status post left thoracentesis. No evidence of pneumothorax. Mild residual pleural-parenchymal changes at the left lung base. Electronically Signed: Yahir Healy MD at 13:13 EDT , Physical Exam Const alert and oriented x3 Constitutional Narrative: Mild conversational dyspnea General Appearance: frail and appears older than stated age HEENT normocephalic and head/scalp atraumatic Eyes conjunctivae normal and no scleral icterus Neck no lymphadenopathy and supple General: trachea midline Chest Chest: abnormal inspection of the chest barrel chest and increased A-P diameter Resp Effort and Inspection: able to speak in complete sentences and symmetric chest movement Auscultation: wheezes expiratory wheezes (Improved), anterior, posterior and throughout and diminished lung sounds left lower; Negative for rales or rhonchi Percussion: Negative for dullness Cardio regular rate, regular rhythm, S1 normal heart sound, S2 normal heart sound and peripheral pulses 2+ throughout GI normal to inspection, nondistended, normoactive bowel sounds, soft to palpation and non-tender Extremity normal capillary refill and no clubbing, cyanosis or edema General Extremity: no tenderness to palpation of joints or extremities Skin Skin Narrative: Dermal atrophy General Skin Exam: no breakdown and turgor normal Lesions: no lesions Rashes: no rashes Neuro no focal motor deficits and no sensory deficits noted Motor Exam: general weakness Psych thought process normal, cooperative and affect normal Appearance: appropriate Charges/Coding Visit Charges Inpatient E&M: 45835 Subs Hosp L3
[2022-02-18] MEDS: Atenolol 25 MG Tablet 12.5 MG PO (10:07)
[2022-02-18] MEDS: Glimepiride 1 MG Tablet 0.5 MG PO (10:07)
[2022-02-18] MEDS: amLODIPine 5 MG Tablet PO (10:07)
[2022-02-18] MEDS: Pantoprazole Sodium 20 MG Tablet PO (10:07)
[2022-02-18 12:45] LABS: Bedside Glucose 218 mg/dL (74-106)
--- NOTE | 2022-02-18 12:57 | CON.PCM.PA_ITS ---
Assessment & Plan Assessment/Plan (1) Shortness of breath: (2) Acute respiratory failure with hypoxia: (3) Severe malnutrition: PLAN: 81-year-old female with advanced lung disease and in today for palliative care consultation for symptom management of shortness of breath and for supportive care when she is discharged home. 1. Shortness of breath/acute hypoxemic respiratory failure: Multifactorial, she had a thoracentesis and feels better but still significantly short of breath with exertion. She does not want to wear oxygen at home. States BiPAP really helped but she was somewhat intolerant to it. Patient would be candidate for opioid therapy for dyspnea, however would try treating underlying conditions first and going from there. She would be a excellent candidate for palliative care as an outpatient, as well as hospice if she would decide to forego any aggressive treatment. However, patient wants everything done. 2. Severe malnutrition: Pulmonary cachexia. Quit smoking about 2 weeks ago due to worsening dyspnea. She drinks daily renal protein drinks. Discussed diet education. She should follow with the dietitian as well. She was down to 84 pounds at one point. Thank you for the opportunity to participate in this patient's care, please do not hesitate to contact [facility] with any further questions or concerns, direct line is [phone]. We will send a liaison and will discuss palliative services further at that time. Contact information left with the p atient. Greater than 50% of F2F visit dedicated to education and counseling of palliative care services, medications, comorbid conditions and potential assistance with management, and plan of care moving forward. Start time: 1257 End time: 1351 HPI Consult Data Date of Consult: 02/18/22 HPI Narrative HPI Narrative: ELIS SCRUGGS, is a 81 F, PMH as below, who presented to [facility] 02/16/2022 with complaints of shortness of breath and wheezing. Patient recently diagnosed with pneumonia and presented to the ED previously 02/12/2022, discharged home with levofloxacin. She worsened so presented back to the ED. Patient found to have significant pleural effusion. Patient was hypertensive and tachypneic upon presentation. Chest x-ray showed complex but stable advanced COPD, persistent stable moderate opacification left lower hemithorax. Suspect underlying left basilar pneumonia and effusion, not ruling out postobstructive pneumonitis. Recommended CT. Patient was admitted for further evaluation and management. Patient has been a longtime smoker. She was previously seen by pulmonary as an outpatient but never completed the work-up ordered. She did have a CT that showed significant progression of emphysematous changes with a complication of left pleural effusion. She underwent thoracentesis with 600 cc of fluid removal. She also had an echocardiogram which had significant findings of estimated EF 15 to 20%, severe global LV hypokinesis, inferobasal aneurysmal, mild MR and TR, and significant change with worsening LV systolic function compared to 04/12/2020. Patient being treated with steroids, bronchodilators, and empiric antibiotic therapy. She is back on her Coumadin after her thoracentesis and administration of FFP. She did have an elevated troponin which was likely supply demand mismatch. She remains significantly short of breath with minimal activity. 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 Patient lives alone in an apartment. She is typically independent with ADLs and drives herself. She does not have a living will or power of personal injury attorney. She follows with Dr. Cuello for pulmonary and Dr. Paiz for nephrology and uses [facility] for pharmacy. She does not currently utilize home oxygen. Patient has an aide for 3 hours 1 day a week and a nurse every couple months through [facility] [employer]. Her family preservation caseworker is Fabi Stein. Notes that she quit smoking about 2 weeks ago and does not have an alcohol history. [facility] Medical History Anemia Benign essential HTN Celiac disease Chronic anticoagulation Chronic kidney disease Chronic renal failure, stage 5 COLD (chronic obstructive lung disease) COPD (chronic obstructive pulmonary disease) Diabetes mellitus Family history of lung cancer FCHL (familial combined hyperlipidemia) Gastroesophageal reflux disease History of DVT (deep vein thrombosis) Multiple excoriations Neoplasm of uncertain behavior of skin Pulmonary cachexia due to chronic obstructive pulmonary disease Solitary pulmonary nodule 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 Stage 1 mild COPD by GOLD classification Superficial thrombophlebitis of right leg Tobacco abuse Home Medications omeprazole 20 mg PO DAILY 12/30/14 [History Last Taken 01/18/22] atenolol 25 mg tablet 12.5 mg PO DAILY 08/28/18 [History Last Taken 01/18/22] simvastatin 20 mg PO DAILY 12/24/18 [History Last Taken 01/18/22] colesevelam 625 mg tablet 625 mg PO DAILY 12/13/19 [History Last Taken Unknown] glimepiride 0.5 mg PO DAILY 04/09/20 [History Last Taken 01/18/22] albuterol sulfate 2 puff INHALATION Q4H PRN PRN #2 inhaler 04/14/20 [Rx Last Taken 01/18/22] tiotropium bromide 2.5 mcg/actuation mist for inhalation 1 puff INHALATION DAILY #4 g 07/29/20 [Rx Last Taken 01/18/22] mometasone-formoterol HFA 200 mcg-5 mcg/actuation aerosol inhaler 2 inh INHALATION BID #3 ea 10/13/21 [Rx Last Taken 01/18/22] amlodipine 5 mg tablet 5 mg PO DAILY tab 12/28/21 [History Last Taken 01/17/22] ergocalciferol (vitamin D2) 1,250 mcg (50,000 unit) capsule 50,000 unit PO MO cap 12/28/21 [History Last Taken 01/18/22] warfarin 2 mg tablet 2 mg PO TUTHSA tab 12/28/21 [History Last Taken 01/18/22] diphenhydramine-acetaminophen [Tylenol PM Extra Strength] 1 tab PO QHS PRN 01/18/22 [History Last Taken 01/17/22] doxycycline hyclate 100 mg PO BID #10 tab 01/19/22 [Rx Last Taken Unknown] prednisone 60 mg PO DAILY #15 tablet 02/12/22 [Rx Last Taken Unknown] warfarin 4 mg PO SUMOWEFR 02/12/22 [History Last Taken Unknown] Allergy/AdvReac Type Severity Reaction Status Date / Time diltiazem HCl [From Cardizem] Allergy Angioedema Verified 02/12/22 11:59 fluticasone furoate Allergy PT UNSURE Verified 02/12/22 11:59 [From Breo Ellipta] OF REACTION gatifloxacin [From Tequin] Allergy Unknown Verified 02/12/22 11:59 hydrochlorothiazide Allergy Other Verified 02/12/22 11:59 [From Maxzide] Penicillins [PCN] Allergy Hives Verified 02/12/22 11:59 triamterene [From Maxzide] Allergy Other Verified 02/12/22 11:59 vilanterol Allergy PT UNSURE Verified 02/12/22 11:59 [From Breo Ellipta] OF REACTION codeine AdvReac Upset Verified 02/12/22 11:59 Stomach Family History Father Diabetes Lung cancer Mother Heart disease Hypertension Surgical History History of appendectomy History of hysterectomy History of skin graft Status post insertion of dialysis catheter Social History household members: none Smoking Status: Current every day smoker tobacco type: cigarettes second hand exposure: Yes alcohol intake: never substance use type: does not use caffeine: Yes what type of physical activity do you participate in: none ROS ROS Narrative Review of systems otherwise negative from a constitutional, HEENT, respiratory, cardiovascular, GI, genitourinary, musculoskeletal, skin, neurologic, psychiatric and hematologic system unless stated above. Physical Exam Const alert, oriented x3 and no apparent distress General Appearance: cooperative and frail Nutritional Appearance: cachectic HEENT normocephalic and head/scalp atraumatic Neck supple General: trachea midline Chest Chest: abnormal inspection of the chest barrel chest and symmetrical chest wall rise Resp Resp Narrative: Faint expiratory and wheeze right posterior, no rales rhonchi Effort and Inspection: tachypneic and uses accessory muscles Auscultation: diminished lung sounds diffuse Cardio regular rate, regular rhythm, S1 normal heart sound and S2 normal heart sound GI normal to inspection, nondistended, normoactive bowel sounds Extremity Extremity Narrative: left foot cool General Extremity: Negative for cyanosis or edema Skin no rashes or lesions noted Skin Narrative: Bruising, thin skin Neuro CN's II-XII intact bilaterally, moves all extremities and no focal motor deficits Psych mental status grossly normal Mood & Affect: anxious Insight: fair
--- NOTE | 2022-02-18 13:21 | CASEMGMT ---
SW competed a Healthcare Power of Spray Gun Striper with patient. Copies were made and given to patient along with original. SW also placed a copy in patient's chart. Merline SAUNDERS
--- NOTE | 2022-02-18 13:53 | PCM.PN.HOSP ---
Subjective Subjective Patient does states she feels better overall. She has been on BiPAP through the night but is asking to come off BiPAP at this time. Oxygen saturations on BiPAP have been 95 to 100%. She states that she is breathing much more easily than yesterday. Thoracentesis performed with removal of 600 cc yesterday. Appears to be lymphocytic rich transudative effusion. Objective Data Objective Data Vital Signs: Vital Signs Temp Pulse Resp BP Pulse Ox 97.8 F 88 24 H 123/69 H 97 02/18/22 10:09 02/18/22 11:15 02/18/22 11:15 02/18/22 10:09 02/18/22 10:15 Oxygen Flow Rate (L/min) [4] 3 Oxygen Flow Rate (L/min) [3] 3 Oxygen Flow Rate (L/min) [2] 3 Oxygen Flow Rate (L/min) [1 ( 3 Initial Baseline)] Oxygen Flow Rate (L/min) 2 Oxygen Delivery Method [4] Nasal Cannula Oxygen Delivery Method [3] Nasal Cannula Oxygen Delivery Method [2] Nasal Cannula Oxygen Delivery Method [1 ( Nasal Cannula Initial Baseline)] Oxygen Delivery Method Nasal Cannula Weight: 43.3 kg Body Mass Index (BMI) 15.5 Intake & Output: Intake and Output for Last 24 Hours 02/16/22 02/17/22 02/18/22 23:59 23:59 23:59 Intake Total 2222.5 / 2462.5 810 / 810 Output Total 600 / 600 Balance 1622.5 / 1862.5 810 / 810 Medical Nutrition Assessment Dietitian: Malnutrition Criteria Met Start: 02/17/22 13:06 Freq: Status: Active Protocol: Document 02/17/22 13:08 (Rec: 02/17/22 13:08 [id number]) Nutrition Malnutrition Evidence of Malnutrition Exists Yes Malnutrition (severe): Chronic Evidenced By Suboptimal Energy Intake ( Severe),Physical Changes ( Severe) Clinical Problem Chronic Disease or Condition Related Malnutrition Etiology severe, chronic malnutrition related to inadequate energy intake w/ increased energy needs due to pulmonary disease Signs/Symptoms as evidenced by estimated energy intake meeting <75% of estimated energy needs >3 months; severe muscle wasting/ fat loss evident per physical exam- depletion noted in orbital areas, temples, scapula, lower extremities; protrusion of clavicle, acromion process; BMI 15.5 Status Active Problem Recommendation Dietitian Recommendations/Changes Will change diet to regular, no added salt, gluten free diet given severe malnutrition ; will adjust ONS from Ensure Enlive to Nepro CarbSteady 120mL 4x/day. Will monitor PO intake, labs, wt, and adjust diet as indicated. Lab / Micro Data Result Diagrams: 02/18/22 05:34 02/18/22 05:34 Labs: Laboratory Results - last 24 hr 02/17/22 11:54: POC Glucose 75 02/17/22 12:45: Fluid Glucose 120 H, Fluid Total Protein 1.0, Fluid LDH 52 02/17/22 12:45: Fluid Source THORACENTESIS, Fluid Color LT YEL, Fluid Appearance SL CLDY, Fluid WBC 0.408, Fluid RBC 6, Fluid Tot Cell Count 0.515 H, Fld Polynuclear WBCs # 0.018, Fld Polynuclear WBCs % 4.4, Fluid Mononuclear WBCs 0.390, Fld Mononuclear WBCs % 95.6, Fluid Neutrophils 4, Fluid Lymphocytes 72, Fluid Monocytes 16, Fluid Other Cells 8, Fl Pathologist Comment May follow, Fluid Comment 2 SEE COMMENT 02/17/22 16:17: POC Glucose 100 02/17/22 21:55: POC Glucose 145 H 02/18/22 05:34: WBC 10.6, RBC 3.24 L, Hgb 9.6 L, Hct 31.4 L, MCV 96.9, MCH 29.6, MCHC 30.6 L, RDW Std Deviation 54.1 H, RDW Coeff of [place] 15.1 H, Plt Count 165, MPV 10.9, Immature Gran % (Auto) 0.500, Neut % (Auto) 90.5 H, Lymph % (Auto) 5.1 L, [place] % (Auto) 3.8, Eos % (Auto) 0.0, Baso % (Auto) 0.1, Absolute Neuts (auto) 9.6 H, Absolute Lymphs (auto) 0.54 L, Nucleated RBC % 0, Differential Comment SCANNED, Anisocytosis 1+ 02/18/22 05:34: PT 16.9 H, INR 1.4 02/18/22 05:34: Sodium 138, Potassium 4.6, Chloride 109 H, Carbon Dioxide 19.0 L, Anion Gap 10, BUN 54 H, Creatinine 1.55 H, Estim Creat Clear Calc 19.79, Est GFR (MDRD) Af Amer 41 L, Est GFR (MDRD) Non-Af 34 L, BUN/Creatinine Ratio 34.8 H, Glucose 176 H, Calcium 7.6 L 02/18/22 05:34: Lactate Dehydrogenase 304 H 02/18/22 06:53: POC Glucose 184 H 02/18/22 12:36: POC Glucose 218 H Micro: Microbiology 02/17/22 12:08 Urine, Random Streptococcus pneumoniae Antigen (M - Final 02/17/22 12:05 Urine, Clean Catch Legionella Antigen - Final Radiography Diagnostic Testing: Radiology Impression Thoracentesis Ultrasound 02/17/22 01:43 IMPRESSION: Ultrasound-guided left thoracentesis. Electronically Signed: Yahir Healy MD at 13:15 EDT , Echocardiogram 02/18/22 05:34 Interpretation Summary The estimated ejection fraction is 15-20 %. Severe Global LV Hypokinesia Inferobasal aneurysmal Mild MR Mild TR significant change with worsening LV systolic function from Echo 04/12/2020 Ordering Physician: Baltazar Cuello Referring Physician: GEE OROURKE Performed By: Tamar López RDCS Physical Exam Const alert, oriented x3 and no apparent distress Constitutional Narrative: Cachectic elderly white female sitting up in a chair at the bedside recliner, currently on BiPAP but asking to come off BiPAP. General Appearance: cooperative Nutritional Appearance: cachectic HEENT normocephalic, head/scalp atraumatic and moist oral mucous membranes HEENT Narrative: Dentition is poor, Mallampati is 1, no thrush, temporal wasting Head and Scalp: normocephalic Eyes no scleral icterus Neck General: trachea midline Resp normal respiratory effort, no retractions, no use of accessory muscles and clear to auscultation bilaterally Resp Narrative: Markedly diminished diffusely with few scattered end expiratory wheeze, improved aeration of the left base Effort and Inspection: able to speak in complete sentences, symmetric chest movement and tachypneic Auscultation: wheezes expiratory wheezes, anterior, posterior and throughout; Negative for crackles, rales or rhonchi Cardio regular rate, regular rhythm, S1 normal heart sound, S2 normal heart sound, no murmurs, no rub, no gallops, no clicks, no JVD and peripheral pulses 2+ throughout Rate: tachycardic GI normal to inspection, nondistended, normoactive bowel sounds, soft to palpation, non-tender and non-distended; Negative for hepatosplenomegaly GI Narrative: Scaphoid abdomen Extremity normal capillary refill Extremity Narrative: Clubbing present, no cyanosis or edema, markedly reduced lean muscle mass General Extremity: no tenderness to palpation of joints or extremities Skin General Skin Exam: no breakdown and turgor normal Lesions: no lesions Rashes: no rashes Neuro oriented x3, CN's II-XII intact bilaterally, moves all extremities and no focal motor deficits Sensorium / Orientation: awake and alert Speech: speech normal Motor Exam: general weakness Psych thought process normal, cooperative and affect normal Appearance: appropriate Assessment & Plan Assessment/Plan (1) Acute respiratory failure with hypoxia: (2) Pleural effusion: (3) Acute exacerbation of COPD with asthma: (4) COPD with acute exacerbation: (5) Warfarin-induced coagulopathy: (6) Elevated troponin: (7) RENE (acute kidney injury): (8) Severe malnutrition: PLAN: Acute hypoxic respiratory failure secondary to COPD exacerbation and left pleural effusion -Doubt an acute pneumonia -We will continue noninvasive ventilation as needed and at night but wean to nasal cannula as able -Okay to keep sats 88 to 92% as I suspect she probably is a chronic CO2 retainer -May need supplemental oxygen at discharge -Continue Solu-Medrol 40 every 8 for now -Continue scheduled and as needed bronchodilators -We will continue empiric antibiotics at this time but may be able to discontinue in the next 24 hours -Thoracentesis with labs ordered for later today--> preprocedure FFP given for INR of 2.5 -Continue Mucinex -Thoracentesis completed on 02/17/2022 for 600 cc--> per lights criteria appears to be a lymphocytic rich transudative effusion -Echocardiogram ordered -Pulmonary following--> patient is familiar to Dr. Cuello -Patient seems to be overall in denial of the severity of her lung disease -As needed Roxanol was significantly helpful clinically per discussion with the patient Left pleural effusion -Resolved status postthoracentesis -Marvin chest x-ray a.m. of 02/19/2022 Troponin elevation -Suspect supply demand mismatch with considerable hypoxia and respiratory distress -No chest pain or other symptoms -No reason to cycle cardiac enzymes any further -Need to consider outpatient stress testing once patient's clinical status has improved from a pulmonary standpoint RENE on CKD stage IIIb -Baseline serum creatinine is approximately 1.3-1.4 -1.9 on admission -Serum creatinine improved today to 1.55 -Repeat lab in a.m. Severe malnutrition with pulmonary cachexia -Patient indicates she has had approximately 10 pound weight loss in the last month -Overall presentation is concerning for potential malignancy and work-up is in progress -Dietitian following -Continue Ensure 3 times daily COPD -Patient appears to have pretty severe COPD of imaging -Patient was evaluated by palliative care -Continue as needed Roxanol for dyspnea with hold parameters for sedation -Pulmonary toilet as above -Hold home inhalers DM-2 with iatrogenic hyperglycemia -Fasting sugar this morning is 176 -Continue sliding scale -Sugar should improve with taper of steroids -Accu-Cheks before meals and at bedtime -Hold home antihyperglycemics Hypertension -Continue home amlodipine -Continue home atenolol GERD -Continue omeprazole Hyperlipidemia -Continue simvastatin History of DVT -Restart home Coumadin -INR this morning is 1.4 -Check INR daily especially with antibiotic use Vitamin D deficiency -Hold ergocalciferol and restart on discharge DVT prophylaxis -INR is down 1.4 -Restart home Coumadin -Start daily Lovenox until INR is greater than 2 CODE STATUS -Full code Charges/Coding Visit Charges Inpatient E&M: 02691 Subs Hosp L2
[2022-02-18] MEDS: Jantoven 2 MG Tablet PO (16:54)
[2022-02-18 17:05] LABS: Bedside Glucose 174 mg/dL (74-106)
[2022-02-18 17:30] LABS: Mycoplasma Pneum AB IgG 125 U/mL (0-99); Mycoplasma pneum. AB IgM < 770 U/mL (0-769)
[2022-02-18 21:11] LABS: Bedside Glucose 384 mg/dL (74-106)
--- NOTE | 2022-02-18 22:30 | NURSING ---
Nurse in to give patient HS medications, including IV medications. This nurse flushed IV site and IV was leaking from site. IV catheter removed and held pressure to site, gauze and tape placed overtop. Four nurses tried to get new IV site for a total of 7 times, and each time was unsuccessful. Patient did not tolerate IV stick well. Patient was unable to hold still during IV insertion and would not let us attempt stick very well. called and updated and changed IV ATB and IV steroids to PO ATB and PO steroid.
[2022-02-18] MEDS: morphine (oral solution) 10MG/0.5ML Syringe 2.5 MG PO (23:07)
[2022-02-18] MEDS: Atorvastatin Calcium 10 MG Tablet PO (23:09)
[2022-02-19] VITALS (18 sets, daily range): BP systolic 104–137; BP diastolic 66–87; PULSE 74–92; RESP 12–24; TEMP 36.2–37.1; O2SAT 88–99
--- NOTE | 2022-02-19 00:43 | PCM.PN.BLA ---
Progress Note Nurse reports multiple attempts to get IV line without success. From reviewing unit of rounding MDs notes antibiotics could be discontinued in a few hours as indeed rounding MD doubts pneumonia. We will stop IV Levaquin and order p.o. Levaquin. We will stop IV aztreonam. We will stop IV Solu-Medrol and ordered p.o. prednisone.
[2022-02-19] MEDS: levoFLOXacin 250 MG Tablet PO ×2 (01:01→21:21)
--- NOTE | 2022-02-19 01:50 | CPS ---
Pt was poked several times earlier RNs trying to get an IV . Pt on 2L Attempted to place pt on bipap, Pt has been complaining since it was put on. Finally RN called and we agreed to take off bipap and replace with nasal O2.
[2022-02-19] MEDS: morphine (oral solution) 10MG/0.5ML Syringe 2.5 MG PO ×2 (04:19→22:30)
[2022-02-19 05:16] LABS: Absolute Lymphocyte Count 0.73 X10^3/uL (0.83-4.51); Absolute Neutrophil Count 11.5 X10^3/uL (2.0-7.7); Basophil# 0.01 X10^3/uL; Basophil% 0.1 % (0-1); Hematocrit 29.2 % (37-47); Hemoglobin 9.4 g/dL (12.0-15.0); Lymphocyte # 0.73 X10^3/ul (0.83-4.51); Lymphocyte % 5.4 % (19-41); Mean Corp Hgb Conc 32.2 g/dL (32-36); Mean Corpuscular Hgb 29.9 pg (27.0-32.0); Mean Platelet Vol. 10.6 fl (6.2-12.0); Monocyte# 1.31 X10^3/uL; Monocyte% 9.6 % (0-10); NRBC Flagged by Analyzer 0.1 % (0-5); Neutrophil % 84.5 % (47-70); Platelet Count 170 K/mm3 (150-450); RBC Distribution Width CV 15.4 % (11.6-14.6); RBC Distribution Width SD 52.1 fl (35.1-43.9); Red Blood Count 3.14 M/mm3 (4.2-5.4); White Blood Count 13.6 K/mm3 (4.4-11.0)
[2022-02-19 05:43] LABS: Anion Gap 7 (5-15); BUN 60 mg/dL (7-18); BUN/Creat Ratio 39.7 RATIO (10-20); Calcium,Total 7.1 mg/dL (8.5-10.1); Chloride 109 mmol/L (98-107); Creatinine, Serum 1.51 mg/dL (0.55-1.02); EST Glomerular Filtration Rate 35 mL/min (>60); Est Glom Filt Rate - Afr Amer 43 mL/min (>60); Estimated Creatinine Clearance 20.31 ml/min; Glucose 173 mg/dL (74-106); Potassium 4.2 mmol/L (3.5-5.1); Sodium Level 138 mmol/L (136-145)
[2022-02-19 05:51] LABS: International Normalized Ratio 1.2; Prothrombin Time (Protime)PT. 15.3 SECONDS (11.7-14.9)
--- NOTE | 2022-02-19 06:00 | NURSING ---
Attempts x2 were made to have patient wear BiPap at night. Pt refused bipap after having it on and stating it wasnt comfortable on her face. Pt then refused Bipap.
[2022-02-19] MEDS: predniSONE 20 MG Tablet 40 MG PO (06:40)
[2022-02-19] MEDS: Insulin Lispro 100 UNIT/ML INSULN.PEN SC ×4 (06:47→21:25)
[2022-02-19 07:00] LABS: Bedside Glucose 157 mg/dL (74-106)
[2022-02-19] MEDS: Ipratropium/Albuterol Sulfate 3 ML AMPUL.NEB INHALATION ×3 (07:20→20:01)
--- NOTE | 2022-02-19 08:06 | PCM.PN.INT ---
Assessment & Plan Assessment/Plan (1) Respiratory failure, acute: QUALIFIERS: Respiratory failure complication: hypoxia Qualified Code(s): J96.01 - Acute respiratory failure with hypoxia (2) Warfarin-induced coagulopathy: (3) Left lower lobe pneumonia: QUALIFIERS: Pneumonia type: due to unspecified organism Qualified Code(s): J18.9 - Pneumonia, unspecified organism PLAN: . RECOMMENDATIONS: 1. Transition to p.o. steroids and wean over 12 to 14 days 2. Walking oximetry prior to discharge 3. Okay to reinitiate Coumadin therapy 4. Continue bronchodilators. Complete 7 days of antibiotics 5. Consult cardiology IMPRESSIONS: 1. Acute hypoxic respiratory insufficiency in the setting of COPD and a left transudative pleural effusion Patient with continued smoking and COPD for several years. Outpatient work-up was ordered, but not completed. Review of CT scan from 4 days ago to 2014 shows significant progression and emphysematous changes. Patient also has a complication of a left pleural effusion. Patient was 600 cc removed with thoracentesis. This appears to be transudate by laboratory work-up. Echocardiogram is suggestive of a cardiovascular etiology of effusion. Patient has had significant worsening in emphysematous changes. Continue with steroids and bronchodilators. Patient will need a walking oximetry prior to discharge. 2. Acute kidney injury Clinical suspicion for prerenal etiology. Patient's baseline creatinine is approximately 1.4, but this has increased to 1.92. Patient has received some IV fluids with improvement in creatinine. Clinical suspicion that her true baseline should be below 1 given patient's low BMI. 3. Elevated troponin/new onset systolic congestive heart failure Troponin elevation not consistent with acute coronary artery disease, but EF is significantly worse over the last 2 years. Will consult cardiology for optimization. This is likely the etiology of patient's transudative pleural effusion. 4. History of DVT/chronic anemia/type 2 diabetes mellitus/hypertension/low BMI Complicates care, management, recovery and prognosis. No indication for transfusion at this time. Patient will likely require increase sliding scale insulin given need for steroid therapy. Will wean steroids over the next 12 to 14 days. Coumadin will be reversed given problem #1. Consider dietitian evaluation Subjective Subjective The patient did okay overnight. Patient did have difficulty wearing BiPAP secondary to some lesions on her nose. However, patient has continued to improve on supplemental oxygen. Patient did report dyspnea on getting to the chair. Patient denies any current chest pain or palpitations. Objective Data Objective Data Vital Signs: Vital Signs Temp Pulse Resp BP Pulse Ox 36.8 C 83 20 H 128/86 H 97 02/19/22 06:30 02/19/22 07:21 02/19/22 07:21 02/19/22 06:30 02/19/22 07:21 Oxygen Flow Rate (L/min) [4] 3 Oxygen Flow Rate (L/min) [3] 3 Oxygen Flow Rate (L/min) [2] 3 Oxygen Flow Rate (L/min) [1 ( 3 Initial Baseline)] Oxygen Flow Rate (L/min) 1 Oxygen Delivery Method [4] Nasal Cannula Oxygen Delivery Method [3] Nasal Cannula Oxygen Delivery Method [2] Nasal Cannula Oxygen Delivery Method [1 ( Nasal Cannula Initial Baseline)] Oxygen Delivery Method Room Air Weight: 45.2 kg Body Mass Index (BMI) 15.5 Intake & Output: Intake and Output for Last 24 Hours 02/17/22 02/18/22 02/19/22 23:59 23:59 23:59 Intake Total 2222.5 / 2462.5 1060 / 1060 Output Total 600 / 600 Balance 1622.5 / 1862.5 1060 / 1060 Medical Nutrition Assessment Dietitian: Malnutrition Criteria Met Start: 02/17/22 13:06 Freq: Status: Active Protocol: Document 02/17/22 13:08 (Rec: 02/17/22 13:08 [id number]) Nutrition Malnutrition Evidence of Malnutrition Exists Yes Malnutrition (severe): Chronic Evidenced By Suboptimal Energy Intake ( Severe),Physical Changes ( Severe) Clinical Problem Chronic Disease or Condition Related Malnutrition Etiology severe, chronic malnutrition related to inadequate energy intake w/ increased energy needs due to pulmonary disease Signs/Symptoms as evidenced by estimated energy intake meeting <75% of estimated energy needs >3 months; severe muscle wasting/ fat loss evident per physical exam- depletion noted in orbital areas, temples, scapula, lower extremities; protrusion of clavicle, acromion process; BMI 15.5 Status Active Problem Recommendation Dietitian Recommendations/Changes Will change diet to regular, no added salt, gluten free diet given severe malnutrition ; will adjust ONS from Ensure Enlive to Nepro CarbSteady 120mL 4x/day. Will monitor PO intake, labs, wt, and adjust diet as indicated. Lab / Micro Data Result Diagrams: 02/19/22 05:08 02/19/22 05:08 Labs: Laboratory Results - last 24 hr 02/17/22 05:20: Mycoplasma pneumon IgG 125 H, Mycoplasma pneumon IgM < 770 02/18/22 12:36: POC Glucose 218 H 02/18/22 16:52: POC Glucose 174 H 02/18/22 20:55: POC Glucose 384 H 02/19/22 05:08: WBC 13.6 H, RBC 3.14 L, Hgb 9.4 L, Hct 29.2 L, MCV 93.0, MCH 29.9, MCHC 32.2 D, RDW Std Deviation 52.1 H, RDW Coeff of [place] 15.4 H, Plt Count 170, MPV 10.6, Immature Gran % (Auto) 0.400, Neut % (Auto) 84.5 H, Lymph % (Auto) 5.4 L, [place] % (Auto) 9.6, Eos % (Auto) 0.0, Baso % (Auto) 0.1, Absolute Neuts (auto) 11.5 H, Absolute Lymphs (auto) 0.73 L, Nucleated RBC % 0.1 02/19/22 05:08: PT 15.3 H, INR 1.2 02/19/22 05:08: Sodium 138, Potassium 4.2, Chloride 109 H, Carbon Dioxide 22.0, Anion Gap 7, BUN 60 H, Creatinine 1.51 H, Estim Creat Clear Calc 20.31, Est GFR (MDRD) Af Amer 43 L, Est GFR (MDRD) Non-Af 35 L, BUN/Creatinine Ratio 39.7 H, Glucose 173 H, Calcium 7.1 L 02/19/22 06:46: POC Glucose 157 H Micro: Microbiology 02/17/22 12:08 Urine, Random Streptococcus pneumoniae Antigen (M - Final 02/17/22 12:05 Urine, Clean Catch Legionella Antigen - Final Radiography Diagnostic Testing: Radiology Impression Echocardiogram 02/18/22 05:34 Interpretation Summary The estimated ejection fraction is 15-20 %. Severe Global LV Hypokinesia Inferobasal aneurysmal Mild MR Mild TR significant change with worsening LV systolic function from Echo 04/12/2020 Ordering Physician: Baltazar Cuello Referring Physician: GEE OROURKE Performed By: Tamar López RDCS Physical Exam Const alert and oriented x3 Constitutional Narrative: Mild conversational dyspnea General Appearance: frail and appears older than stated age HEENT normocephalic and head/scalp atraumatic Eyes conjunctivae normal and no scleral icterus Neck no lymphadenopathy and supple General: trachea midline Chest Chest: abnormal inspection of the chest barrel chest and increased A-P diameter Resp Effort and Inspection: able to speak in complete sentences and symmetric chest movement Auscultation: wheezes expiratory wheezes (Improved), anterior, posterior and throughout and diminished lung sounds left lower; Negative for rales or rhonchi Percussion: Negative for dullness Cardio regular rate, regular rhythm, S1 normal heart sound, S2 normal heart sound and peripheral pulses 2+ throughout GI normal to inspection, nondistended, normoactive bowel sounds, soft to palpation and non-tender Extremity normal capillary refill and no clubbing, cyanosis or edema General Extremity: no tenderness to palpation of joints or extremities Skin Skin Narrative: Dermal atrophy General Skin Exam: no breakdown and turgor normal Lesions: no lesions Rashes: no rashes Neuro no focal motor deficits and no sensory deficits noted Motor Exam: general weakness Psych thought process normal, cooperative and affect normal Appearance: appropriate Charges/Coding Visit Charges Inpatient E&M: 54775 Subs Hosp L2
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
[2022-02-19] MEDS: Enoxaparin 30 MG/0.3 ML Syringe SC (09:36)
[2022-02-19] MEDS: Glimepiride 1 MG Tablet 0.5 MG PO (09:36)
[2022-02-19] MEDS: Atenolol 25 MG Tablet 12.5 MG PO (09:37)
[2022-02-19] MEDS: amLODIPine 5 MG Tablet PO (09:37)
[2022-02-19] MEDS: Pantoprazole Sodium 20 MG Tablet PO (09:37)
--- NOTE | 2022-02-19 12:23 | CL.D_ITS ---
Patient Name: ELIS SCRUGGS Study Date: 02/19/2022 Performing: Karla Tsang MD Ht: 66 inches 168 cm : 1940 Wt: 99.3 lbs 45 kg Age: 81 Gender: female BSA: 1.49 PROCEDURE(S) PERFORMED [id number])[facility] CLINICAL PROFILE AND INDICATIONS Indications: Cardiomyopathy Heart Failure: NYHA Class: 3, Newly Diagnosed: Yes, Heart Failure Type: Systolic Stress/Imaging Stress/Image Study Performed: No CAD Presentations: Other: CHF CONCLUSIONS Multivessel CAD RECOMMENDATIONS CT surgery consult for possible CABG. PCI of LCx and LAD or Medical therapy alone are options to cons ider as well. DESCRIPTION OF PROCEDURE The patient arrived to the procedure lab. The risks and benefits of the procedure as well as a full d escription of our services here and current unavailability of surgical backup were fully explained to the patient and/or their significant other prior to the catheterization. The Timeout was completed, verifying the correct patient and procedure. The patient's procedural site was prepped and draped in the usual fashion. Local anesthetic was given subcutaneously to right radial region with Lidocaine 2% . Using a modified Seldinger technique, arterial access was obtained via the right radial artery, a 6 Fr sheath was inserted. Left Coronary Artery selective angiography was performed in multiple views u sing a 5 Fr. JL3.5 catheter. Right Coronary Artery selective angiography was then performed in multip le views using a 5 Fr. JR 4 catheter. LV to AO pullback pressures were then recorded.The arterial she ath was pulled and a TR Band was applied for hemostasis CORONARY ANGIOGRAPHY DOMINANCE: Right Dominant LEFT HEART ASSESSMENT LVEDP: 21 mmHg LEFT MAIN: 25% ostial Stenosis LEFT ANTERIOR DESCENDING ARTERY: PROX LAD: 60 % Stenosis immediately distal to D1 and proximal to a large septal branch MID LAD: 80-85 % Stenosis CIRCUMFLEX ARTERY: PROX CIRC: 80-85 % Stenosis DISTAL CIRC: 80 % Stenosis RIGHT CORONARY ARTERY: PROX RCA: 100 % Stenosis L to R collaterals noted VALVE FINDINGS: No Aortic Valve Stenosis COMPLICATIONS No Complications PROCEDURE MEDICATIONS Fentanyl 50 mcg IV Versed 1 mg IV Oxygen: 2 L/min via nasal cannula Verapamil 2.5mg, Ntg 100mcgs given IA 02/19/2022 11:29:29 SUMMARY OF HEMODYNAMIC DATA Time AIR REST ECG 11:19:41 AO 112/56 (77) SA 11:34:34 LV 130/9, 24 11:41:06 LV 130/11, 21 11:41:13 LVp 127/10, 21 11:41:42 AOp 131/66 (92) 11:41:47 Signed By Karla Tsang MD On 02/19/2022 12:22:29 Karla Tsang MD
[2022-02-19 12:35] LABS: Bedside Glucose 247 mg/dL (74-106)
[2022-02-19] MEDS: 0.9% Normal Saline 1,000 ML 60 ML IV (12:42)
--- NOTE | 2022-02-19 13:19 | PN.HOSP_ITS ---
Subjective Subjective Doing well today, echo demonstrated an EF of 15 to 20% so cardiology was consulted and they proceed with heart cath. She does have significant disease at this time will recommend medical management. No issues overnight Objective Data Objective Data Vital Signs: Vital Signs Temp Pulse Resp BP Pulse Ox 97.4 F L 78 22 H 137/82 H 96 02/19/22 13:00 02/19/22 13:00 02/19/22 13:00 02/19/22 13:00 02/19/22 13:00 Oxygen Flow Rate (L/min) [4] 3 Oxygen Flow Rate (L/min) [3] 3 Oxygen Flow Rate (L/min) [2] 3 Oxygen Flow Rate (L/min) [1 ( 3 Initial Baseline)] Oxygen Flow Rate (L/min) 2 Oxygen Delivery Method [4] Nasal Cannula Oxygen Delivery Method [3] Nasal Cannula Oxygen Delivery Method [2] Nasal Cannula Oxygen Delivery Method [1 ( Nasal Cannula Initial Baseline)] Oxygen Delivery Method Nasal Cannula Weight: 99 lb 10.383 oz Body Mass Index (BMI) 15.5 Intake & Output: Intake and Output for Last 24 Hours 02/18/22 02/19/22 02/20/22 03:59 03:59 03:59 Intake Total 1767.5 / 1767.5 820 / 820 400 / 400 Output Total 600 / 600 Balance 1167.5 / 1167.5 820 / 820 400 / 400 Medical Nutrition Assessment Dietitian: Malnutrition Criteria Met Start: 02/17/22 13:06 Freq: Status: Active Protocol: Document 02/17/22 13:08 (Rec: 02/17/22 13:08 [id number]) Nutrition Malnutrition Evidence of Malnutrition Exists Yes Malnutrition (severe): Chronic Evidenced By Suboptimal Energy Intake ( Severe),Physical Changes ( Severe) Clinical Problem Chronic Disease or Condition Related Malnutrition Etiology severe, chronic malnutrition related to inadequate energy intake w/ increased energy needs due to pulmonary disease Signs/Symptoms as evidenced by estimated energy intake meeting <75% of estimated energy needs >3 months; severe muscle wasting/ fat loss evident per physical exam- depletion noted in orbital areas, temples, scapula, lower extremities; protrusion of clavicle, acromion process; BMI 15.5 Status Active Problem Recommendation Dietitian Recommendations/Changes Will change diet to regular, no added salt, gluten free diet given severe malnutrition ; will adjust ONS from Ensure Enlive to Nepro CarbSteady 120mL 4x/day. Will monitor PO intake, labs, wt, and adjust diet as indicated. Lab / Micro Data Result Diagrams: 02/19/22 05:08 02/19/22 05:08 Labs: Laboratory Results - last 24 hr 02/17/22 05:20: Mycoplasma pneumon IgG 125 H, Mycoplasma pneumon IgM < 770 02/18/22 16:52: POC Glucose 174 H 02/18/22 20:55: POC Glucose 384 H 02/19/22 05:08: WBC 13.6 H, RBC 3.14 L, Hgb 9.4 L, Hct 29.2 L, MCV 93.0, MCH 29.9, MCHC 32.2 D, RDW Std Deviation 52.1 H, RDW Coeff of Oly 15.4 H, Plt Count 170, MPV 10.6, Immature Gran % (Auto) 0.400, Neut % (Auto) 84.5 H, Lymph % (Auto) 5.4 L, [place] % (Auto) 9.6, Eos % (Auto) 0.0, Baso % (Auto) 0.1, Absolute Neuts (auto) 11.5 H, Absolute Lymphs (auto) 0.73 L, Nucleated RBC % 0.1 02/19/22 05:08: PT 15.3 H, INR 1.2 02/19/22 05:08: Sodium 138, Potassium 4.2, Chloride 109 H, Carbon Dioxide 22.0, Anion Gap 7, BUN 60 H, Creatinine 1.51 H, Estim Creat Clear Calc 20.31, Est GFR (MDRD) Af Amer 43 L, Est GFR (MDRD) Non-Af 35 L, BUN/Creatinine Ratio 39.7 H, Glucose 173 H, Calcium 7.1 L 02/19/22 06:46: POC Glucose 157 H 02/19/22 12:16: POC Glucose 247 H Micro: Microbiology 02/17/22 12:08 Urine, Random Streptococcus pneumoniae Antigen (M - Final 02/17/22 12:05 Urine, Clean Catch Legionella Antigen - Final Physical Exam Const alert, oriented x3 and no apparent distress General Appearance: cooperative HEENT normocephalic and moist oral mucous membranes Eyes PERRL, EOMs intact bilaterally and conjunctivae normal Neck supple and no JVD Resp normal respiratory effort, no retractions and no use of accessory muscles Auscultation: wheezes and diminished lung sounds; Negative for crackles, rales or rhonchi Cardio regular rate, regular rhythm, S1 normal heart sound, S2 normal heart sound and no murmurs GI soft to palpation, non-tender and non-distended; Negative for hepatosplenomegaly Extremity no clubbing, cyanosis or edema Skin no rashes or lesions noted Neuro no focal motor deficits and no sensory deficits noted Psych affect normal Appearance: appropriate Assessment & Plan Assessment/Plan (1) Acute respiratory failure with hypoxia: (2) Pleural effusion: (3) Acute exacerbation of COPD with asthma: (4) COPD with acute exacerbation: (5) Warfarin-induced coagulopathy: (6) Elevated troponin: (7) RENE (acute kidney injury): (8) Severe malnutrition: PLAN: 1. Acute hypoxic respiratory failure secondary to COPD exacerbation and left pleural effusion/elevated troponin -Doubt an acute pneumonia -We will continue noninvasive ventilation as needed and at night but wean to nasal cannula as able -Continue with prednisone -Continue scheduled and as needed bronchodilators -We will continue empiric antibiotics at this time -Continue Mucinex -Thoracentesis completed on 02/17/2022 for 600 cc--> per lights criteria appears to be a lymphocytic rich transudative effusion ?Echo with reduced EF, cardiology was consulted and recommended medical management at this time after a cath which did demonstrate coronary artery disease -Patient seems to be overall in denial of the severity of her lung disease -As needed Roxanol was significantly helpful clinically per discussion with the patient 2. DM 2 ? Continue with sliding scale insulin we will continue to monitor blood sugar and adjust insulin as necessary secondary to prednisone ? Accu-Cheks AC at bedtime ? Continue with glimepiride 3. HTN/HLD ? Blood pressure stable ? Continue home blood pressure medications ?continue with home Lipitor 4. GERD ? Stable ? Continue with PPI 5. History of DVT ? Restart Coumadin and monitor INR 6. Severe malnutrition with pulmonary cachexia -Patient indicates she has had approximately 10 pound weight loss in the last month -Overall presentation is concerning for potential malignancy and work-up is in progress -Dietitian following -Continue Ensure 3 times daily DVT: Coumadin Charges/Coding Visit Charges Inpatient E&M: 95799 Subs Hosp L2
--- NOTE | 2022-02-19 15:17 | EKG12_ITS ---
Test Reason : RYTHMN CHANGE Blood Pressure : / mmHG Vent. Rate : 076 BPM Atrial Rate : 076 BPM P-R Int : 116 ms QRS Dur : 094 ms QT Int : 420 ms P-R-T Axes : 097 057 234 degrees QTc Int : 472 ms Normal sinus rhythm ST & T wave abnormality, consider inferolateral ischemia Prolonged QT Abnormal ECG When compared with ECG of 17-FEB-2022 00:04, No significant change was found Confirmed by REYMUNDO GARAY, YANELY ([id number]), script editor LUIS MENDEZ ([id number]) on 02/23/2022 8:23:14 AM Referred By: TAMIA Confirmed By:YANELY DWYER MD
[2022-02-19] MEDS: Acetaminophen 325 MG Tablet 650 MG PO (15:44)
[2022-02-19 16:51] LABS: Bedside Glucose 190 mg/dL (74-106)
[2022-02-19] MEDS: Atorvastatin Calcium 10 MG Tablet PO (21:21)
[2022-02-19] MEDS: Carvedilol 3.125 MG TABLET PO (21:30)
[2022-02-19 22:46] LABS: Bedside Glucose 224 mg/dL (74-106)
--- NOTE | 2022-02-19 23:14 | CPS ---
ATTEMPTED to place pt on sleep lad bipap with dream wear mask to better fit face and avoid already broken down skin areas. Pt refused it all. She claimed she couldn't breathe through her nose but mask was on appropriately. RT verified twice. Pt panicked and refused to even keep it on for one minute. RN aware
[2022-02-20] VITALS (16 sets, daily range): BP systolic 123–139; BP diastolic 68–80; PULSE 68–87; RESP 18–24; TEMP 35.9–36.6; O2SAT 94–97
[2022-02-20] MEDS: morphine (oral solution) 10MG/0.5ML Syringe 2.5 MG PO ×2 (02:59→22:15)
[2022-02-20 04:51] LABS: Absolute Lymphocyte Count 1.21 X10^3/uL (0.83-4.51); Absolute Neutrophil Count 8.3 X10^3/uL (2.0-7.7); Basophil# 0.01 X10^3/uL; Basophil% 0.1 % (0-1); Eosinophil# 0.01 X10^3/uL; Eosinophils% 0.1 % (0-5); Hematocrit 29.9 % (37-47); Hemoglobin 9.3 g/dL (12.0-15.0); Lymphocyte # 1.21 X10^3/ul (0.83-4.51); Lymphocyte % 11.3 % (19-41); Mean Corp Hgb Conc 31.1 g/dL (32-36); Mean Corpuscular Hgb 29.7 pg (27.0-32.0); Mean Corpuscular Volume 95.5 fL (81-99); Mean Platelet Vol. 10.7 fl (6.2-12.0); Monocyte# 1.22 X10^3/uL; Monocyte% 11.3 % (0-10); NRBC Flagged by Analyzer 0 % (0-5); Neutrophil # 8.27 X10^3/uL (2.7-7.7); Neutrophil % 76.9 % (47-70); Platelet Count 168 K/mm3 (150-450); RBC Distribution Width CV 15.5 % (11.6-14.6); RBC Distribution Width SD 53.1 fl (35.1-43.9); Red Blood Count 3.13 M/mm3 (4.2-5.4); White Blood Count 10.8 K/mm3 (4.4-11.0)
[2022-02-20 05:04] LABS: International Normalized Ratio 1.3; Prothrombin Time (Protime)PT. 15.9 SECONDS (11.7-14.9)
[2022-02-20 05:05] LABS: Partial Thromboplast Time 32.6 Seconds (24.1-36.2)
[2022-02-20 05:12] LABS: Anion Gap 6 (5-15); BUN 52 mg/dL (7-18); BUN/Creat Ratio 39.4 RATIO (10-20); Calcium,Total 7.3 mg/dL (8.5-10.1); Chloride 112 mmol/L (98-107); Creatinine, Serum 1.32 mg/dL (0.55-1.02); EST Glomerular Filtration Rate 41 mL/min (>60); Est Glom Filt Rate - Afr Amer 50 mL/min (>60); Estimated Creatinine Clearance 24.26 ml/min; Glucose 67 mg/dL (74-106); Potassium 4.2 mmol/L (3.5-5.1); Sodium Level 141 mmol/L (136-145)
[2022-02-20] MEDS: Ipratropium/Albuterol Sulfate 3 ML AMPUL.NEB INHALATION ×4 (05:22→19:44)
[2022-02-20 06:51] LABS: Bedside Glucose 82 mg/dL (74-106)
[2022-02-20] MEDS: Albuterol 2.5 MG/3 ML VIAL.NEB. INHALATION (07:50)
--- NOTE | 2022-02-20 07:57 | PN.CC_ITS ---
Assessment & Plan Assessment/Plan (1) Respiratory failure, acute: QUALIFIERS: Respiratory failure complication: hypoxia Qualified Code(s): J96.01 - Acute respiratory failure with hypoxia (2) Warfarin-induced coagulopathy: (3) Left lower lobe pneumonia: QUALIFIERS: Pneumonia type: due to unspecified organism Qualified Code(s): J18.9 - Pneumonia, unspecified organism PLAN: . RECOMMENDATIONS: 1. Continue prednisone and wean over 12 to 14 days 2. Walking oximetry prior to discharge 3. Okay to reinitiate Coumadin therapy 4. Continue bronchodilators. Complete 7 days of antibiotics 5. Await cardiology intervention IMPRESSIONS: 1. Acute hypoxic respiratory insufficiency in the setting of COPD and a left transudative pleural effusion Patient with continued smoking and COPD for several years. Outpatient work-up was ordered, but not completed. Review of CT scan from 4 days ago to 2014 shows significant progression and emphysematous changes. Patient also has a complication of a left pleural effusion. Patient was 600 cc removed with thoracentesis. This appears to be transudate by laboratory work-up. Echocardiogram is suggestive of a cardiovascular etiology of effusion. Patient has had significant worsening in emphysematous changes. Continue with steroids and bronchodilators. Patient will need a walking oximetry prior to discharge. If able to ambulate on 6 L or less, okay to discharge from pulmonary perspective. Patient should follow-up with nurse practitioner in our office in 2 weeks. 2. Acute kidney injury Clinical suspicion for prerenal etiology. Patient's baseline creatinine is approximately 1.4, but this has increased to 1.92. Patient has received some IV fluids with improvement in creatinine. Clinical suspicion that her true baseline should be below 1 given patient's low BMI. 3. Elevated troponin/new onset systolic congestive heart failure/CAD Patient noted to have diffuse coronary artery disease. Exact plan/approach is to be determined as an outpatient. This does offer a potential of improvement in symptomatic control. This is likely the etiology of patient's transudative pleural effusion. 4. History of DVT/chronic anemia/type 2 diabetes mellitus/hypertension/low BMI Complicates care, management, recovery and prognosis. No indication for transfusion at this time. Patient will likely require increase sliding scale insulin given need for steroid therapy. Will wean steroids over the next 12 to 14 days. Coumadin was reversed given problem #1. Consider dietitian evaluation Subjective Subjective Patient did okay overnight. Patient did have a heart cath yesterday and tolerated this well. Patient states she continues to have shortness of breath with exertion and is nervous about going home as she has had multiple ER visits in the last 3 months. Objective Data Objective Data Vital Signs: Vital Signs Temp Pulse Resp BP Pulse Ox 36.6 C 71 20 H 123/77 H 96 02/20/22 03:16 02/20/22 05:23 02/20/22 05:23 02/20/22 03:16 02/20/22 05:25 Oxygen Flow Rate (L/min) [4] 3 Oxygen Flow Rate (L/min) [3] 3 Oxygen Flow Rate (L/min) [2] 3 Oxygen Flow Rate (L/min) [1 ( 3 Initial Baseline)] Oxygen Flow Rate (L/min) 2 Oxygen Delivery Method [4] Nasal Cannula Oxygen Delivery Method [3] Nasal Cannula Oxygen Delivery Method [2] Nasal Cannula Oxygen Delivery Method [1 ( Nasal Cannula Initial Baseline)] Oxygen Delivery Method Nasal Cannula Weight: 44.8 kg Body Mass Index (BMI) 15.5 Intake & Output: Intake and Output for Last 24 Hours 02/18/22 02/19/22 02/20/22 23:59 23:59 23:59 Intake Total 1060 / 1060 968 / 1168 440 / 440 Balance 1060 / 1060 968 / 1168 440 / 440 Medical Nutrition Assessment Dietitian: Malnutrition Criteria Met Start: 02/17/22 13:06 Freq: Status: Active Protocol: Document 02/17/22 13:08 (Rec: 02/17/22 13:08 [id number]) Nutrition Malnutrition Evidence of Malnutrition Exists Yes Malnutrition (severe): Chronic Evidenced By Suboptimal Energy Intake ( Severe),Physical Changes ( Severe) Clinical Problem Chronic Disease or Condition Related Malnutrition Etiology severe, chronic malnutrition related to inadequate energy intake w/ increased energy needs due to pulmonary disease Signs/Symptoms as evidenced by estimated energy intake meeting <75% of estimated energy needs >3 months; severe muscle wasting/ fat loss evident per physical exam- depletion noted in orbital areas, temples, scapula, lower extremities; protrusion of clavicle, acromion process; BMI 15.5 Status Active Problem Recommendation Dietitian Recommendations/Changes Will change diet to regular, no added salt, gluten free diet given severe malnutrition ; will adjust ONS from Ensure Enlive to Nepro CarbSteady 120mL 4x/day. Will monitor PO intake, labs, wt, and adjust diet as indicated. Lab / Micro Data Result Diagrams: 02/20/22 04:29 02/20/22 04:29 Labs: Laboratory Results - last 24 hr 02/19/22 12:16: POC Glucose 247 H 02/19/22 16:33: POC Glucose 190 H 02/19/22 21:24: POC Glucose 224 H 02/20/22 04:29: WBC 10.8, RBC 3.13 L, Hgb 9.3 L, Hct 29.9 L, MCV 95.5, MCH 29.7, MCHC 31.1 L, RDW Std Deviation 53.1 H, RDW Coeff of Oly 15.5 H, Plt Count 168, MPV 10.7, Immature Gran % (Auto) 0.300, Neut % (Auto) 76.9 H, Lymph % (Auto) 11.3 L, [place] % (Auto) 11.3 H, Eos % (Auto) 0.1, Baso % (Auto) 0.1, Absolute Neuts (auto) 8.3 H, Absolute Lymphs (auto) 1.21, Nucleated RBC % 0 02/20/22 04:29: PT 15.9 H, INR 1.3, APTT 32.6 02/20/22 04:29: Sodium 141, Potassium 4.2, Chloride 112 H, Carbon Dioxide 23.0, Anion Gap 6, BUN 52 H, Creatinine 1.32 H, Estim Creat Clear Calc 24.26, Est GFR (MDRD) Af Amer 50 L, Est GFR (MDRD) Non-Af 41 L, BUN/Creatinine Ratio 39.4 H, Glucose 67 L, Calcium 7.3 L 02/20/22 06:32: POC Glucose 82 Micro: Microbiology 02/17/22 12:08 Urine, Random Streptococcus pneumoniae Antigen (M - Final 02/17/22 12:05 Urine, Clean Catch Legionella Antigen - Final Physical Exam Const alert and oriented x3 Constitutional Narrative: Mild conversational dyspnea General Appearance: frail and appears older than stated age HEENT normocephalic and head/scalp atraumatic Eyes conjunctivae normal and no scleral icterus Neck no lymphadenopathy and supple General: trachea midline Chest Chest: abnormal inspection of the chest barrel chest and increased A-P diameter Resp Effort and Inspection: able to speak in complete sentences and symmetric chest movement Auscultation: wheezes expiratory wheezes (Improved), anterior, posterior and throughout and diminished lung sounds left lower; Negative for rales or rhonchi Percussion: Negative for dullness Cardio regular rate, regular rhythm, S1 normal heart sound, S2 normal heart sound and peripheral pulses 2+ throughout GI normal to inspection, nondistended, normoactive bowel sounds, soft to palpation and non-tender Extremity normal capillary refill and no clubbing, cyanosis or edema General Extremity: no tenderness to palpation of joints or extremities Skin Skin Narrative: Dermal atrophy General Skin Exam: no breakdown and turgor normal Lesions: no lesions Rashes: no rashes Neuro no focal motor deficits and no sensory deficits noted Motor Exam: general weakness Psych thought process normal, cooperative and affect normal Appearance: appropriate Charges/Coding Visit Charges Inpatient E&M: 44725 Subs Hosp L2
[2022-02-20] MEDS: predniSONE 20 MG Tablet 40 MG PO (08:19)
[2022-02-20] MEDS: Carvedilol 3.125 MG TABLET PO ×2 (08:19→22:12)
[2022-02-20] MEDS: amLODIPine 5 MG Tablet PO (08:19)
[2022-02-20] MEDS: Aspirin E.C. 81 MG Tablet PO (08:19)
[2022-02-20] MEDS: Glimepiride 1 MG Tablet 0.5 MG PO (08:20)
[2022-02-20] MEDS: Enoxaparin 30 MG/0.3 ML Syringe SC (08:20)
[2022-02-20] MEDS: Pantoprazole Sodium 20 MG Tablet PO (08:20)
--- NOTE | 2022-02-20 10:49 | PCM.PN.CARD ---
Subjective Subjective The patient is awake and alert. She denies ongoing chest discomfort. She still has shortness of breath and dyspnea. She denies any ongoing palpitations. Objective Data Vital Signs: Vital Signs Temp Pulse Resp BP Pulse Ox 96.6 F L 80 20 H 138/80 H 96 02/20/22 09:00 02/20/22 09:00 02/20/22 09:00 02/20/22 09:00 02/20/22 09:00 Oxygen Flow Rate (L/min) [4] 3 Oxygen Flow Rate (L/min) [3] 3 Oxygen Flow Rate (L/min) [2] 3 Oxygen Flow Rate (L/min) [1 ( 3 Initial Baseline)] Oxygen Flow Rate (L/min) 2 Oxygen Delivery Method [4] Nasal Cannula Oxygen Delivery Method [3] Nasal Cannula Oxygen Delivery Method [2] Nasal Cannula Oxygen Delivery Method [1 ( Nasal Cannula Initial Baseline)] Oxygen Delivery Method Nasal Cannula Weight: 98 lb 12.273 oz Body Mass Index (BMI) 15.5 Intake & Output: Intake and Output for Last 24 Hours 02/18/22 02/19/22 02/20/22 23:59 23:59 23:59 Intake Total 1060 / 1060 968 / 1168 440 / 440 Balance 1060 / 1060 968 / 1168 440 / 440 Lab / Micro Data Result Diagrams: 02/20/22 04:29 02/20/22 04:29 Labs: Laboratory Results - last 24 hr 02/19/22 12:16: POC Glucose 247 H 02/19/22 16:33: POC Glucose 190 H 02/19/22 21:24: POC Glucose 224 H 02/20/22 04:29: WBC 10.8, RBC 3.13 L, Hgb 9.3 L, Hct 29.9 L, MCV 95.5, MCH 29.7, MCHC 31.1 L, RDW Std Deviation 53.1 H, RDW Coeff of Oly 15.5 H, Plt Count 168, MPV 10.7, Immature Gran % (Auto) 0.300, Neut % (Auto) 76.9 H, Lymph % (Auto) 11.3 L, [place] % (Auto) 11.3 H, Eos % (Auto) 0.1, Baso % (Auto) 0.1, Absolute Neuts (auto) 8.3 H, Absolute Lymphs (auto) 1.21, Nucleated RBC % 0 02/20/22 04:29: PT 15.9 H, INR 1.3, APTT 32.6 02/20/22 04:29: Sodium 141, Potassium 4.2, Chloride 112 H, Carbon Dioxide 23.0, Anion Gap 6, BUN 52 H, Creatinine 1.32 H, Estim Creat Clear Calc 24.26, Est GFR (MDRD) Af Amer 50 L, Est GFR (MDRD) Non-Af 41 L, BUN/Creatinine Ratio 39.4 H, Glucose 67 L, Calcium 7.3 L 02/20/22 06:32: POC Glucose 82 Cardiology Labs/Tests 02/20/22 04:29: WBC 10.8, RBC 3.13 L, Hgb 9.3 L, Hct 29.9 L, MCV 95.5, MCH 29.7, MCHC 31.1 L, Plt Count 168, MPV 10.7, Immature Gran % (Auto) 0.300, Neut % (Auto) 76.9 H, Lymph % (Auto) 11.3 L, [place] % (Auto) 11.3 H, Eos % (Auto) 0.1, Baso % (Auto) 0.1, Absolute Neuts (auto) 8.3 H, Nucleated RBC % 0 02/20/22 04:29: PT 15.9 H, INR 1.3, APTT 32.6 02/20/22 04:29: Sodium 141, Potassium 4.2, Chloride 112 H, Carbon Dioxide 23.0, Anion Gap 6, BUN 52 H, Creatinine 1.32 H, Est GFR (MDRD) Af Amer 50 L, Est GFR (MDRD) Non-Af 41 L, BUN/Creatinine Ratio 39.4 H, Glucose 67 L, Calcium 7.3 L Rhythm: Sinus rhythm with episodes appearing compatible with paroxysmal atrial fibrillation ECHO: 02-18-2022 Interpretation Summary The estimated ejection fraction is 15-20 %. Severe Global LV Hypokinesia Inferobasal aneurysmal Mild MR Mild TR significant change with worsening LV systolic function from Echo 04/12/2020 Cardiac Cath: 02-19-2022 CONCLUSIONS Multivessel CAD RECOMMENDATIONS CT surgery consult for possible CABG. PCI of LCx and LAD or Medical therapy alone are options to consider as well. DESCRIPTION OF PROCEDURE The patient arrived to the procedure lab. The risks and benefits of the procedure as well as a full description of our services here and current unavailability of surgical backup were fully explained to the patient and/or their significant other prior to the catheterization. The Timeout was completed, verifying the correct patient and procedure. The patient's procedural site was prepped and draped in the usual fashion. Local anesthetic was given subcutaneously to right radial region with Lidocaine 2%. Using a modified Seldinger technique, arterial access was obtained via the right radial artery, a 6Fr sheath was inserted. Left Coronary Artery selective angiography was performed in multiple views using a 5 Fr. JL3.5 catheter. Right Coronary Artery selective angiography was then performed in multiple views using a 5 Fr. JR 4 catheter. LV to AO pullback pressures were then recorded.The arterial sheath was pulled and a TR Band was applied for hemostasis CORONARY ANGIOGRAPHY DOMINANCE: Right Dominant LEFT HEART ASSESSMENT LVEDP: 21 mmHg LEFT MAIN: 25% ostial Stenosis LEFT ANTERIOR DESCENDING ARTERY: PROX LAD: 60 % Stenosis immediately distal to D1 and proximal to a large septal branch MID LAD: 80-85 % Stenosis CIRCUMFLEX ARTERY: PROX CIRC: 80-85 % Stenosis DISTAL CIRC: 80 % Stenosis RIGHT CORONARY ARTERY: PROX RCA: 100 % Stenosis L to R collaterals noted VALVE FINDINGS: No Aortic Valve Stenosis Physical Exam Narrative This is a thin somewhat cachectic appearing 81-year-old white female. Const alert and oriented x3 Orientation / Consciousness: awake HEENT normocephalic, head/scalp atraumatic and hearing grossly normal bilaterally Eyes PERRL, EOMs intact bilaterally and conjunctivae normal Neck full ROM, supple and no JVD Resp Auscultation: diminished lung sounds bilateral lower Cardio regular rate, regular rhythm, S1 normal heart sound and S2 normal heart sound GI normal to inspection, nondistended, normoactive bowel sounds Extremity no pedal edema Skin no rashes or lesions noted Psych mental status grossly normal Assessment & Plan Assessment/Plan (1) Atherosclerosis of coronary artery of [place] heart without angina pectoris: PLAN: The patient has been found to have extensive underlying multivessel CAD. She has been recommended for tertiary care center evaluation for high risk multivessel PCI versus CABG. At the moment she will continue medical management which include agents such as aspirin, nitrates as needed, beta-blockers, lipid-lowering agents, etc. (2) Cardiomyopathy: QUALIFIERS: Cardiomyopathy type: ischemic Qualified Code(s): I25.5 - Ischemic cardiomyopathy PLAN: The patient does have a finding compatible with underlying cardiomyopathy thought related to her underlying multivessel CAD. She will need to continue medical management which will include medication as noted above as well as medications such as afterload reducing agents. With respect to afterload reducing agents, depending upon her renal function, this may include agents such as nitrates and hydralazine/Apresoline versus GEO inhibitors/ARB's/Entresto. Also, over time, if her LV systolic function does not improve she will need to be considered for ICD therapy. (3) CHF (congestive heart failure): PLAN: The patient has had findings compatible with CHF. 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 She will need to continue medical management which will include diuretic therapy which could include diuretic such as Aldactone/spironolactone if tolerated. (4) Atrial fibrillation: PLAN: The patient has demonstrated evidence compatible with paroxysmal atrial fibrillation. She appears to be without acute symptoms. She will need to continue medical therapy such as rate control. It may be reasonable to initiate antiarrhythmic therapy such as amiodarone and attempt to maintain sinus rhythm. She also need to be considered for anticoagulant therapy. It is noted she has been on warfarin/Coumadin in the past for her underlying thromboembolic disease. At the moment it may be reasonable to consider agent such as enoxaparin/Lovenox as she is pending transfer to a tertiary care center for further invasive evaluation and care. If she does not become a candidate for further invasive evaluation care then she can be transitioned back to an oral anticoagulant. (5) Pleural effusion: PLAN: She has had pleural effusions. It appears she has undergone thoracentesis. Based upon the report 600 cc of transudate was removed. She will need to continue medical management. (6) RENE (acute kidney injury): PLAN: Her renal function will need to be followed. This will have to be taken into consideration with adjustment of medications. (7) Pneumonia: PLAN: She has also been evaluated and treated for pneumonia. She will continue under the care of internal medicine/pulmonology/critical care medicine. (8) Benign essential HTN: PLAN: Her blood pressures will need to be followed with agents adjusted as necessary. Addt'l Comments The patient's case has been discussed and reviewed with the patient. At the time based upon the patient's significant cardiovascular disease/comorbidities it appears prudent that the patient be transferred to a tertiary care center for further advanced cardiovascular evaluation and care. The patient states that she has family that lives in [place], [place]. Thus, she has requested transfer to the [facility]. The aforementioned information was conveyed to Dr. Gannon the [facility] staff. He has agreed to initiate transfer to [facility]. This note was generated using a voice recognition system and there may be incorrect words, spelling or punctuation that were not noted when reviewing the office note prior to saving.
[2022-02-20] MEDS: Insulin Lispro 100 UNIT/ML INSULN.PEN SC ×3 (11:30→22:13)
[2022-02-20 11:40] LABS: Bedside Glucose 168 mg/dL (74-106)
--- NOTE | 2022-02-20 12:43 | PCM.PN.HOSP ---
Subjective Subjective Doing well today, still has some shortness of breath but denies any chest pain. Objective Data Objective Data Vital Signs: Vital Signs Temp Pulse Resp BP Pulse Ox 96.6 F L 81 20 H 138/80 H 96 02/20/22 09:00 02/20/22 11:36 02/20/22 09:00 02/20/22 09:00 02/20/22 09:00 Oxygen Flow Rate (L/min) [4] 3 Oxygen Flow Rate (L/min) [3] 3 Oxygen Flow Rate (L/min) [2] 3 Oxygen Flow Rate (L/min) [1 ( 3 Initial Baseline)] Oxygen Flow Rate (L/min) 2 Oxygen Delivery Method [4] Nasal Cannula Oxygen Delivery Method [3] Nasal Cannula Oxygen Delivery Method [2] Nasal Cannula Oxygen Delivery Method [1 ( Nasal Cannula Initial Baseline)] Oxygen Delivery Method Nasal Cannula Weight: 98 lb 12.273 oz Body Mass Index (BMI) 15.5 Intake & Output: Intake and Output for Last 24 Hours 02/19/22 02/20/22 02/21/22 03:59 03:59 03:59 Intake Total 820 / 820 1168 / 1168 480 / 480 Balance 820 / 820 1168 / 1168 480 / 480 Medical Nutrition Assessment Dietitian: Malnutrition Criteria Met Start: 02/17/22 13:06 Freq: Status: Active Protocol: Document 02/17/22 13:08 (Rec: 02/17/22 13:08 [id number]) Nutrition Malnutrition Evidence of Malnutrition Exists Yes Malnutrition (severe): Chronic Evidenced By Suboptimal Energy Intake ( Severe),Physical Changes ( Severe) Clinical Problem Chronic Disease or Condition Related Malnutrition Etiology severe, chronic malnutrition related to inadequate energy intake w/ increased energy needs due to pulmonary disease Signs/Symptoms as evidenced by estimated energy intake meeting <75% of estimated energy needs >3 months; severe muscle wasting/ fat loss evident per physical exam- depletion noted in orbital areas, temples, scapula, lower extremities; protrusion of clavicle, acromion process; BMI 15.5 Status Active Problem Recommendation Dietitian Recommendations/Changes Will change diet to regular, no added salt, gluten free diet given severe malnutrition ; will adjust ONS from Ensure Enlive to Nepro CarbSteady 120mL 4x/day. Will monitor PO intake, labs, wt, and adjust diet as indicated. Lab / Micro Data Result Diagrams: 02/20/22 04:29 02/20/22 04:29 Labs: Laboratory Results - last 24 hr 02/19/22 16:33: POC Glucose 190 H 02/19/22 21:24: POC Glucose 224 H 02/20/22 04:29: WBC 10.8, RBC 3.13 L, Hgb 9.3 L, Hct 29.9 L, MCV 95.5, MCH 29.7, MCHC 31.1 L, RDW Std Deviation 53.1 H, RDW Coeff of Oly 15.5 H, Plt Count 168, MPV 10.7, Immature Gran % (Auto) 0.300, Neut % (Auto) 76.9 H, Lymph % (Auto) 11.3 L, [place] % (Auto) 11.3 H, Eos % (Auto) 0.1, Baso % (Auto) 0.1, Absolute Neuts (auto) 8.3 H, Absolute Lymphs (auto) 1.21, Nucleated RBC % 0 02/20/22 04:29: PT 15.9 H, INR 1.3, APTT 32.6 02/20/22 04:29: Sodium 141, Potassium 4.2, Chloride 112 H, Carbon Dioxide 23.0, Anion Gap 6, BUN 52 H, Creatinine 1.32 H, Estim Creat Clear Calc 24.26, Est GFR (MDRD) Af Amer 50 L, Est GFR (MDRD) Non-Af 41 L, BUN/Creatinine Ratio 39.4 H, Glucose 67 L, Calcium 7.3 L 02/20/22 06:32: POC Glucose 82 02/20/22 11:29: POC Glucose 168 H Micro: Microbiology 02/17/22 12:08 Urine, Random Streptococcus pneumoniae Antigen (M - Final 02/17/22 12:05 Urine, Clean Catch Legionella Antigen - Final Physical Exam Narrative Const alert, oriented x3 and no apparent distress General Appearance: cooperative HEENT normocephalic and moist oral mucous membranes Eyes PERRL, EOMs intact bilaterally and conjunctivae normal Neck supple and no JVD Resp normal respiratory effort, no retractions and no use of accessory muscles Auscultation: wheezes and diminished lung sounds; Negative for crackles, rales or rhonchi Cardio regular rate, regular rhythm, S1 normal heart sound, S2 normal heart sound and no murmurs GI soft to palpation, non-tender and non-distended; Negative for hepatosplenomegaly Extremity no clubbing, cyanosis or edema Skin no rashes or lesions noted Neuro no focal motor deficits and no sensory deficits noted Psych affect normal Appearance: appropriate Assessment & Plan Assessment/Plan (1) Acute respiratory failure with hypoxia: (2) Pleural effusion: (3) Acute exacerbation of COPD with asthma: (4) COPD with acute exacerbation: (5) Warfarin-induced coagulopathy: (6) Elevated troponin: (7) RENE (acute kidney injury): (8) Severe malnutrition: PLAN: 1. Acute hypoxic respiratory failure secondary to COPD exacerbation and left pleural effusion/CAD/acute systolic CHF -Doubt an acute pneumonia -We will continue noninvasive ventilation as needed and at night but wean to nasal cannula as able -Continue with prednisone -Continue scheduled and as needed bronchodilators -We will continue empiric antibiotics at this time -Continue Mucinex -Thoracentesis completed on 02/17/2022 for 600 cc--> per lights criteria appears to be a lymphocytic rich transudative effusion ? Echo with an EF of 15 to 20%, significant coronary artery disease discussed the situation with [facility] cardiology who has accepted the patient in transfer ? Stop her atenolol and transition to Coreg -Patient seems to be overall in denial of the severity of her lung disease -As needed Roxanol was significantly helpful clinically per discussion with the patient 2. DM 2 ? Continue with sliding scale insulin we will continue to monitor blood sugar and adjust insulin as necessary secondary to prednisone ? Accu-Cheks AC at bedtime ? Continue with glimepiride 3. HTN/HLD ? Blood pressure stable ? Continue home blood pressure medications ?continue with home Lipitor 4. GERD ? Stable ? Continue with PPI 5. History of DVT ? We will hold Coumadin secondary to anticipated transfer to [facility] for further evaluation of her systolic CHF and coronary artery disease 6. Severe malnutrition with pulmonary cachexia -Patient indicates she has had approximately 10 pound weight loss in the last month -Overall presentation is concerning for potential malignancy and work-up is in progress -Dietitian following -Continue Ensure 3 times daily DVT: Coumadin Charges/Coding Visit Charges Inpatient E&M: 23298 Subs Hosp L2
[2022-02-20] MEDS: Furosemide 20 MG Tablet PO (13:17)
[2022-02-20] MEDS: Isosorbide DN 10 MG Tablet 5 MG PO ×2 (13:17→22:13)
[2022-02-20 17:26] LABS: Bedside Glucose 287 mg/dL (74-106)
[2022-02-20] MEDS: levoFLOXacin 250 MG Tablet PO (22:12)
[2022-02-20] MEDS: hydrALAZINE 10 MG Tablet PO (22:12)
[2022-02-20] MEDS: Atorvastatin Calcium 10 MG Tablet PO (22:13)
[2022-02-20 22:46] LABS: Bedside Glucose 240 mg/dL (74-106)
--- NOTE | 2022-02-20 23:41 | CPS ---
Pt refusing to wear sleep lab bipap machine for the night, RN aware.
[2022-02-21] VITALS (14 sets, daily range): BP systolic 110–142; BP diastolic 58–75; PULSE 70–90; RESP 17–22; TEMP 36.5–36.7; O2SAT 92–99
[2022-02-21] MEDS: Isosorbide DN 10 MG Tablet 5 MG PO ×3 (06:45→22:02)
[2022-02-21 07:05] LABS: Bedside Glucose 102 mg/dL (74-106)
[2022-02-21 07:08] LABS: International Normalized Ratio 1.4; Prothrombin Time (Protime)PT. 16.7 SECONDS (11.7-14.9)
[2022-02-21 07:20] LABS: Anion Gap 6 (5-15); BUN 50 mg/dL (7-18); BUN/Creat Ratio 38.8 RATIO (10-20); Calcium,Total 7.7 mg/dL (8.5-10.1); Chloride 110 mmol/L (98-107); Creatinine, Serum 1.29 mg/dL (0.55-1.02); EST Glomerular Filtration Rate 42 mL/min (>60); Est Glom Filt Rate - Afr Amer 51 mL/min (>60); Estimated Creatinine Clearance 24.49 ml/min; Glucose 114 mg/dL (74-106); Potassium 3.9 mmol/L (3.5-5.1); Sodium Level 142 mmol/L (136-145)
[2022-02-21] MEDS: Ipratropium/Albuterol Sulfate 3 ML AMPUL.NEB INHALATION ×4 (07:44→19:37)
[2022-02-21] MEDS: predniSONE 20 MG Tablet 40 MG PO (08:06)
[2022-02-21] MEDS: Aspirin E.C. 81 MG Tablet PO (08:06)
[2022-02-21] MEDS: Glimepiride 1 MG Tablet 0.5 MG PO (08:06)
--- NOTE | 2022-02-21 08:15 | PCM.PN.INT ---
Assessment & Plan Assessment/Plan (1) Respiratory failure, acute: QUALIFIERS: Respiratory failure complication: hypoxia Qualified Code(s): J96.01 - Acute respiratory failure with hypoxia (2) Warfarin-induced coagulopathy: (3) Left lower lobe pneumonia: QUALIFIERS: Pneumonia type: due to unspecified organism Qualified Code(s): J18.9 - Pneumonia, unspecified organism PLAN: . RECOMMENDATIONS: 1. Continue prednisone and wean over 12 to 14 days 2. Await transfer to [facility] for cardiology evaluation 3. Okay to reinitiate Coumadin therapy 4. Continue bronchodilators. Complete 7 days of antibiotics 5. Patient at baseline from a respiratory standpoint. Will sign off from a pulmonary perspective pending transfer. Please call with issues IMPRESSIONS: 1. Acute hypoxic respiratory insufficiency in the setting of COPD and a left transudative pleural effusion Patient with continued smoking and COPD for several years. Outpatient work-up was ordered, but not completed. Review of CT scan from 4 days ago to 2014 shows significant progression and emphysematous changes. Patient also has a complication of a left pleural effusion. Patient was 600 cc removed with thoracentesis. This appears to be transudate by laboratory work-up. Echocardiogram is suggestive of a cardiovascular etiology of effusion. Patient has had significant worsening in emphysematous changes. Continue with steroids and bronchodilators. Await transfer to [facility]. Patient should follow-up with nurse practitioner in our office in 2 weeks after discharge from the hospital. 2. Acute kidney injury Clinical suspicion for prerenal etiology. Continues to improve. Patient's baseline creatinine is approximately 1.4, but this has increased to 1.92. Patient has received some IV fluids with improvement in creatinine. Clinical suspicion that her true baseline should be below 1 given patient's low BMI. 3. Elevated troponin/new onset systolic congestive heart failure/CAD Patient noted to have diffuse coronary artery disease. Patient reportedly to be transferred to [facility] for recommendations on optimization. This does offer a potential of improvement in symptomatic control. This is likely the etiology of patient's transudative pleural effusion. Likely recheck a chest x-ray in the future 4. History of DVT/chronic anemia/type 2 diabetes mellitus/hypertension/low BMI Complicates care, management, recovery and prognosis. No indication for transfusion at this time. Patient will likely require increase sliding scale insulin given need for steroid therapy. Will wean steroids over the next 12 to 14 days. Coumadin was reversed given problem #1. Consider dietitian evaluation Subjective Subjective Patient did okay overnight. Patient reportedly was refusing to get up and move around during the day secondary to concerns with dyspnea on exertion. Patient reportedly is awaiting transfer to [facility] for cardiovascular evaluation. Patient seen while sleeping this morning, but no complaints were reported by nursing. Objective Data Objective Data Vital Signs: Vital Signs Temp Pulse Resp BP Pulse Ox 36.6 C 72 18 131/75 H 98 02/21/22 04:03 02/21/22 07:00 02/21/22 04:03 02/21/22 04:03 02/21/22 04:03 Oxygen Flow Rate (L/min) [4] 3 Oxygen Flow Rate (L/min) [3] 3 Oxygen Flow Rate (L/min) [2] 3 Oxygen Flow Rate (L/min) [1 ( 3 Initial Baseline)] Oxygen Flow Rate (L/min) 2 Oxygen Delivery Method [4] Nasal Cannula Oxygen Delivery Method [3] Nasal Cannula Oxygen Delivery Method [2] Nasal Cannula Oxygen Delivery Method [1 ( Nasal Cannula Initial Baseline)] Oxygen Delivery Method Nasal Cannula Weight: 44.6 kg Body Mass Index (BMI) 15.5 Intake & Output: Intake and Output for Last 24 Hours 02/19/22 02/20/22 02/21/22 23:59 23:59 23:59 Intake Total 968 / 1168 970 / 970 60 / 60 Output Total 650 / 650 Balance 968 / 1168 320 / 320 60 / 60 Medical Nutrition Assessment Dietitian: Malnutrition Criteria Met Start: 02/17/22 13:06 Freq: Status: Active Protocol: Document 02/17/22 13:08 (Rec: 02/17/22 13:08 [id number]) Nutrition Malnutrition Evidence of Malnutrition Exists Yes Malnutrition (severe): Chronic Evidenced By Suboptimal Energy Intake ( Severe),Physical Changes ( Severe) Clinical Problem Chronic Disease or Condition Related Malnutrition Etiology severe, chronic malnutrition related to inadequate energy intake w/ increased energy needs due to pulmonary disease Signs/Symptoms as evidenced by estimated energy intake meeting <75% of estimated energy needs >3 months; severe muscle wasting/ fat loss evident per physical exam- depletion noted in orbital areas, temples, scapula, lower extremities; protrusion of clavicle, acromion process; BMI 15.5 Status Active Problem Recommendation Dietitian Recommendations/Changes Will change diet to regular, no added salt, gluten free diet given severe malnutrition ; will adjust ONS from Ensure Enlive to Nepro CarbSteady 120mL 4x/day. Will monitor PO intake, labs, wt, and adjust diet as indicated. Lab / Micro Data Result Diagrams: 02/20/22 04:29 02/21/22 06:25 Labs: Laboratory Results - last 24 hr 02/20/22 11:29: POC Glucose 168 H 02/20/22 17:18: POC Glucose 287 H 02/20/22 22:02: POC Glucose 240 H 02/21/22 06:25: Sodium 142, Potassium 3.9, Chloride 110 H, Carbon Dioxide 26.0, Anion Gap 6, BUN 50 H, Creatinine 1.29 H, Estim Creat Clear Calc 24.49, Est GFR (MDRD) Af Amer 51 L, Est GFR (MDRD) Non-Af 42 L, BUN/Creatinine Ratio 38.8 H, Glucose 114 H, Calcium 7.7 L 02/21/22 06:25: PT 16.7 H, INR 1.4 02/21/22 06:43: POC Glucose 102 Micro: Microbiology 02/17/22 12:08 Urine, Random Streptococcus pneumoniae Antigen (M - Final 02/17/22 12:05 Urine, Clean Catch Legionella Antigen - Final Physical Exam Const alert and oriented x3 Constitutional Narrative: Mild conversational dyspnea General Appearance: frail and appears older than stated age HEENT normocephalic and head/scalp atraumatic Eyes conjunctivae normal and no scleral icterus Neck no lymphadenopathy and supple General: trachea midline Chest Chest: abnormal inspection of the chest barrel chest and increased A-P diameter Resp Effort and Inspection: able to speak in complete sentences and symmetric chest movement Auscultation: wheezes expiratory wheezes (Improved), anterior, posterior and throughout and diminished lung sounds left lower; Negative for rales or rhonchi Percussion: Negative for dullness Cardio regular rate, regular rhythm, S1 normal heart sound, S2 normal heart sound and peripheral pulses 2+ throughout GI normal to inspection, nondistended, normoactive bowel sounds, soft to palpation and non-tender Extremity normal capillary refill and no clubbing, cyanosis or edema General Extremity: no tenderness to palpation of joints or extremities Skin Skin Narrative: Dermal atrophy General Skin Exam: no breakdown and turgor normal Lesions: no lesions Rashes: no rashes Neuro no focal motor deficits and no sensory deficits noted Motor Exam: general weakness Psych thought process normal, cooperative and affect normal Appearance: appropriate Charges/Coding Visit Charges Inpatient E&M: 55542 Subs Hosp L2
--- NOTE | 2022-02-21 08:54 | PCM.PN.CARD ---
Subjective Subjective The patient has been resting comfortably with no acute changes. Objective Data Vital Signs: Vital Signs Temp Pulse Resp BP Pulse Ox 97.9 F 72 18 131/75 H 98 02/21/22 04:03 02/21/22 07:00 02/21/22 04:03 02/21/22 04:03 02/21/22 04:03 Oxygen Flow Rate (L/min) [4] 3 Oxygen Flow Rate (L/min) [3] 3 Oxygen Flow Rate (L/min) [2] 3 Oxygen Flow Rate (L/min) [1 ( 3 Initial Baseline)] Oxygen Flow Rate (L/min) 2 Oxygen Delivery Method [4] Nasal Cannula Oxygen Delivery Method [3] Nasal Cannula Oxygen Delivery Method [2] Nasal Cannula Oxygen Delivery Method [1 ( Nasal Cannula Initial Baseline)] Oxygen Delivery Method Nasal Cannula Weight: 98 lb 5.219 oz Body Mass Index (BMI) 15.5 Intake & Output: Intake and Output for Last 24 Hours 02/19/22 02/20/22 02/21/22 23:59 23:59 23:59 Intake Total 968 / 1168 970 / 970 60 / 60 Output Total 650 / 650 Balance 968 / 1168 320 / 320 60 / 60 Lab / Micro Data Result Diagrams: 02/20/22 04:29 02/21/22 06:25 Labs: Laboratory Results - last 24 hr 02/20/22 11:29: POC Glucose 168 H 02/20/22 17:18: POC Glucose 287 H 02/20/22 22:02: POC Glucose 240 H 02/21/22 06:25: Sodium 142, Potassium 3.9, Chloride 110 H, Carbon Dioxide 26.0, Anion Gap 6, BUN 50 H, Creatinine 1.29 H, Estim Creat Clear Calc 24.49, Est GFR (MDRD) Af Amer 51 L, Est GFR (MDRD) Non-Af 42 L, BUN/Creatinine Ratio 38.8 H, Glucose 114 H, Calcium 7.7 L 02/21/22 06:25: PT 16.7 H, INR 1.4 02/21/22 06:43: POC Glucose 102 Cardiology Labs/Tests 02/21/22 06:25: Sodium 142, Potassium 3.9, Chloride 110 H, Carbon Dioxide 26.0, Anion Gap 6, BUN 50 H, Creatinine 1.29 H, Est GFR (MDRD) Af Amer 51 L, Est GFR (MDRD) Non-Af 42 L, BUN/Creatinine Ratio 38.8 H, Glucose 114 H, Calcium 7.7 L 02/21/22 06:25: PT 16.7 H, INR 1.4 Rhythm: Sinus rhythm Physical Exam Narrative This is a thin somewhat cachectic appearing 81-year-old white female. Const alert and oriented x3 General Appearance: cooperative Orientation / Consciousness: awake Nutritional Appearance: cachectic HEENT normocephalic, head/scalp atraumatic, hearing grossly normal bilaterally, external ears normal and external nose normal Eyes PERRL, EOMs intact bilaterally, conjunctivae normal and no scleral icterus Neck full ROM, no lymphadenopathy, supple and no JVD Resp Resp Narrative: Diminished lung sounds throughout, especially left base. Auscultation: diminished lung sounds bilateral lower Cardio regular rate, regular rhythm, S1 normal heart sound and S2 normal heart sound Cardio Narrative: Distant heart sounds noted GI normal to inspection, nondistended, normoactive bowel sounds, soft to palpation, non-tender and non-distended Extremity normal to inspection, normal capillary refill, no clubbing, cyanosis or edema and no pedal edema Skin no rashes or lesions noted Neuro oriented x3, CN's II-XII intact bilaterally, moves all extremities and no focal motor deficits Psych mental status grossly normal, cooperative and affect normal Assessment & Plan Assessment/Plan (1) Atherosclerosis of coronary artery of [place] heart without angina pectoris: PLAN: The patient has been found to have extensive underlying multivessel CAD. She has been recommended for tertiary care center evaluation for high risk multivessel PCI versus CABG. a transfer request has been placed to [facility]. Her medications have been adjusted. She appears to be tolerating them thus far. (2) Cardiomyopathy: QUALIFIERS: Cardiomyopathy type: ischemic Qualified Code(s): I25.5 - Ischemic cardiomyopathy PLAN: The patient does have a finding compatible with underlying cardiomyopathy thought related to her underlying multivessel CAD. She will need to continue medical management which will include medication as noted above as well as medications such as afterload reducing agents. Based upon her overall clinical status she has been placed on nitrate therapy and hydralazine therapy. She appears to be tolerating it thus far. Also, over time, if her LV systolic function does not improve she will need to be considered for ICD therapy. (3) CHF (congestive heart failure): PLAN: The patient has had findings compatible with CHF. 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 She will need to continue medical management which will include diuretic therapy which could include diuretic such as Aldactone/spironolactone if tolerated. However, it appears that there is a potential interaction/allergy with respect to using this agent. (4) Atrial fibrillation: PLAN: The patient has demonstrated evidence compatible with paroxysmal atrial fibrillation. She appears to be without acute symptoms. She will need to continue medical therapy such as rate control. It may be reasonable to initiate antiarrhythmic therapy such as amiodarone and attempt to maintain sinus rhythm. Her oral anticoagulant has been placed on hold. Her INR has decreased. She is continuing subcutaneous anticoagulant therapy in the interim. (5) Pleural effusion: PLAN: She has had pleural effusions. It appears she has undergone thoracentesis. Based upon the report 600 cc of transudate was removed. She will need to continue medical management. (6) RENE (acute kidney injury): PLAN: Her renal function will need to be followed. This will have to be taken into consideration with adjustment of medications. (7) Pneumonia: PLAN: She has also been evaluated and treated for pneumonia. She will continue under the care of internal medicine/pulmonology/critical care medicine. (8) Benign essential HTN: PLAN: Her blood pressures will need to be followed with agents adjusted as necessary. Addt'l Comments At the present time she will continue to be monitored. She will continue medical therapy. She is pending transfer to [facility] for further evaluation and care. This note was generated using a voice recognition system and there may be incorrect words, spelling or punctuation that were not noted when reviewing the office note prior to saving.
[2022-02-21] MEDS: Furosemide 20 MG Tablet PO (09:24)
[2022-02-21] MEDS: hydrALAZINE 10 MG Tablet PO ×2 (09:25→22:02)
[2022-02-21] MEDS: Carvedilol 3.125 MG TABLET PO ×2 (09:25→22:02)
[2022-02-21] MEDS: amLODIPine 5 MG Tablet PO (09:26)
[2022-02-21] MEDS: Pantoprazole Sodium 20 MG Tablet PO (09:26)
[2022-02-21] MEDS: Enoxaparin 40 MG/0.4 ML Syringe SC (09:27)
--- NOTE | 2022-02-21 11:27 | PCM.PN.HOSP ---
Subjective Subjective Doing well, no issues overnight. Of note she refuses to ambulate because of dyspnea despite encouragement to get up out of bed Objective Data Objective Data Vital Signs: Vital Signs Temp Pulse Resp BP Pulse Ox 97.8 F 78 17 125/69 H 99 02/21/22 09:21 02/21/22 09:25 02/21/22 09:21 02/21/22 09:25 02/21/22 09:21 Oxygen Flow Rate (L/min) [4] 3 Oxygen Flow Rate (L/min) [3] 3 Oxygen Flow Rate (L/min) [2] 3 Oxygen Flow Rate (L/min) [1 ( 3 Initial Baseline)] Oxygen Flow Rate (L/min) 2 Oxygen Delivery Method [4] Nasal Cannula Oxygen Delivery Method [3] Nasal Cannula Oxygen Delivery Method [2] Nasal Cannula Oxygen Delivery Method [1 ( Nasal Cannula Initial Baseline)] Oxygen Delivery Method Nasal Cannula Weight: 98 lb 5.219 oz Body Mass Index (BMI) 15.5 Intake & Output: Intake and Output for Last 24 Hours 02/20/22 02/21/22 02/22/22 03:59 03:59 03:59 Intake Total 1168 / 1168 770 / 770 60 / 60 Output Total 650 / 650 Balance 1168 / 1168 120 / 120 60 / 60 Medical Nutrition Assessment Dietitian: Malnutrition Criteria Met Start: 02/17/22 13:06 Freq: Status: Active Protocol: Document 02/17/22 13:08 (Rec: 02/17/22 13:08 [id number]) Nutrition Malnutrition Evidence of Malnutrition Exists Yes Malnutrition (severe): Chronic Evidenced By Suboptimal Energy Intake ( Severe),Physical Changes ( Severe) Clinical Problem Chronic Disease or Condition Related Malnutrition Etiology severe, chronic malnutrition related to inadequate energy intake w/ increased energy needs due to pulmonary disease Signs/Symptoms as evidenced by estimated energy intake meeting <75% of estimated energy needs >3 months; severe muscle wasting/ fat loss evident per physical exam- depletion noted in orbital areas, temples, scapula, lower extremities; protrusion of clavicle, acromion process; BMI 15.5 Status Active Problem Recommendation Dietitian Recommendations/Changes Will change diet to regular, no added salt, gluten free diet given severe malnutrition ; will adjust ONS from Ensure Enlive to Nepro CarbSteady 120mL 4x/day. Will monitor PO intake, labs, wt, and adjust diet as indicated. Lab / Micro Data Result Diagrams: 02/20/22 04:29 02/21/22 06:25 Labs: Laboratory Results - last 24 hr 02/20/22 11:29: POC Glucose 168 H 02/20/22 17:18: POC Glucose 287 H 02/20/22 22:02: POC Glucose 240 H 02/21/22 06:25: Sodium 142, Potassium 3.9, Chloride 110 H, Carbon Dioxide 26.0, Anion Gap 6, BUN 50 H, Creatinine 1.29 H, Estim Creat Clear Calc 24.49, Est GFR (MDRD) Af Amer 51 L, Est GFR (MDRD) Non-Af 42 L, BUN/Creatinine Ratio 38.8 H, Glucose 114 H, Calcium 7.7 L 02/21/22 06:25: PT 16.7 H, INR 1.4 02/21/22 06:43: POC Glucose 102 Micro: Microbiology 02/17/22 12:08 Urine, Random Streptococcus pneumoniae Antigen (M - Final 02/17/22 12:05 Urine, Clean Catch Legionella Antigen - Final Physical Exam Narrative Const alert, oriented x3 and no apparent distress General Appearance: cooperative HEENT normocephalic and moist oral mucous membranes Eyes PERRL, EOMs intact bilaterally and conjunctivae normal Neck supple and no JVD Resp normal respiratory effort, no retractions and no use of accessory muscles Auscultation: wheezes and diminished lung sounds; Negative for crackles, rales or rhonchi Cardio regular rate, regular rhythm, S1 normal heart sound, S2 normal heart sound and no murmurs GI soft to palpation, non-tender and non-distended; Negative for hepatosplenomegaly Extremity no clubbing, cyanosis or edema Skin no rashes or lesions noted Neuro no focal motor deficits and no sensory deficits noted Psych affect normal Appearance: appropriate Assessment & Plan Assessment/Plan (1) Acute respiratory failure with hypoxia: (2) Pleural effusion: (3) Acute exacerbation of COPD with asthma: (4) COPD with acute exacerbation: (5) Warfarin-induced coagulopathy: (6) Elevated troponin: (7) RENE (acute kidney injury): (8) Severe malnutrition: PLAN: 1. Acute hypoxic respiratory failure secondary to COPD exacerbation and left pleural effusion/CAD/acute systolic CHF -We will continue noninvasive ventilation as needed and at night but wean to nasal cannula as able -Continue with prednisone and wean over 2 weeks -Continue scheduled and as needed bronchodilators -Continue Levaquin for 7 days total -Continue Mucinex -Thoracentesis completed on 02/17/2022 for 600 cc--> per lights criteria appears to be a lymphocytic rich transudative effusion ? Echo with an EF of 15 to 20%, significant coronary artery disease discussed the situation with [facility] cardiology who has accepted the patient in transfer ? Stop her atenolol and transition to Coreg 2. DM 2 ? Continue with sliding scale insulin we will continue to monitor blood sugar and adjust insulin as necessary secondary to prednisone ? Accu-Cheks AC at bedtime ? Continue with glimepiride 3. HTN/HLD ? Blood pressure stable ? Continue home blood pressure medications ?continue with home Lipitor 4. GERD ? Stable ? Continue with PPI 5. History of DVT ? We will hold Coumadin secondary to anticipated transfer to [facility] for further evaluation of her systolic CHF and coronary artery disease 6. Severe malnutrition with pulmonary cachexia -Patient indicates she has had approximately 10 pound weight loss in the last month -Overall presentation is concerning for potential malignancy and work-up is in progress -Dietitian following -Continue Ensure 3 times daily DVT: Lovenox Charges/Coding Visit Charges Inpatient E&M: 31697 Subs Hosp L2
[2022-02-21] MEDS: Insulin Lispro 100 UNIT/ML INSULN.PEN SC ×3 (12:11→22:03)
[2022-02-21 12:20] LABS: Bedside Glucose 236 mg/dL (74-106)
[2022-02-21 17:10] LABS: Bedside Glucose 311 mg/dL (74-106)
[2022-02-21 18:15] LABS: Histoplasma Abs Negative (Neg:<1:1)
[2022-02-21 20:32] LABS: Pathologist Comment/Body Fluid Reviewed
[2022-02-21 21:56] LABS: Bedside Glucose 331 mg/dL (74-106)
[2022-02-21] MEDS: morphine (oral solution) 10MG/0.5ML Syringe 2.5 MG PO (22:02)
[2022-02-21] MEDS: Atorvastatin Calcium 10 MG Tablet PO (22:02)
[2022-02-21] MEDS: levoFLOXacin 250 MG Tablet PO (22:02)
[2022-02-21] MEDS: 0.9% Saline Lock 10 ML Syringe IV (22:03)
[2022-02-22] VITALS (22 sets, daily range): BP systolic 119–165; BP diastolic 67–82; PULSE 72–157; RESP 16–24; TEMP 36.5–36.8; O2SAT 85–100
[2022-02-22] MEDS: Ipratropium/Albuterol Sulfate 3 ML AMPUL.NEB INHALATION ×5 (05:29→19:42)
[2022-02-22] MEDS: Isosorbide DN 10 MG Tablet 5 MG PO ×3 (06:23→21:14)
[2022-02-22 06:30] LABS: Absolute Lymphocyte Count 1.09 X10^3/uL (0.83-4.51); Absolute Neutrophil Count 7.4 X10^3/uL (2.0-7.7); Eosinophil# 0.02 X10^3/uL; Eosinophils% 0.2 % (0-5); Hematocrit 30.5 % (37-47); Hemoglobin 9.6 g/dL (12.0-15.0); Lymphocyte # 1.09 X10^3/ul (0.83-4.51); Lymphocyte % 11.4 % (19-41); Mean Corp Hgb Conc 31.5 g/dL (32-36); Mean Corpuscular Hgb 29.7 pg (27.0-32.0); Mean Corpuscular Volume 94.4 fL (81-99); Mean Platelet Vol. 10.7 fl (6.2-12.0); Monocyte# 1.02 X10^3/uL; Monocyte% 10.7 % (0-10); NRBC Flagged by Analyzer 0 % (0-5); Neutrophil # 7.38 X10^3/uL (2.7-7.7); Neutrophil % 77.2 % (47-70); Platelet Count 159 K/mm3 (150-450); RBC Distribution Width SD 51.5 fl (35.1-43.9); Red Blood Count 3.23 M/mm3 (4.2-5.4); White Blood Count 9.6 K/mm3 (4.4-11.0)
[2022-02-22 06:43] LABS: International Normalized Ratio 1.3; Prothrombin Time (Protime)PT. 16.1 SECONDS (11.7-14.9)
[2022-02-22 06:46] LABS: Bedside Glucose 67 mg/dL (74-106)
[2022-02-22 06:50] LABS: Bedside Glucose 111 mg/dL (74-106)
[2022-02-22 06:57] LABS: Anion Gap 5 (5-15); BUN 42 mg/dL (7-18); BUN/Creat Ratio 36.5 RATIO (10-20); Calcium,Total 7.5 mg/dL (8.5-10.1); Chloride 107 mmol/L (98-107); Creatinine, Serum 1.15 mg/dL (0.55-1.02); EST Glomerular Filtration Rate 48 mL/min (>60); Est Glom Filt Rate - Afr Amer 58 mL/min (>60); Estimated Creatinine Clearance 26.24 ml/min; Glucose 74 mg/dL (74-106); Potassium 3.5 mmol/L (3.5-5.1); Sodium Level 141 mmol/L (136-145)
--- NOTE | 2022-02-22 07:55 | PN.CARD_ITS ---
Subjective Subjective The patient is awake and alert. She has chronic shortness of breath and dyspnea. Objective Data Vital Signs: Vital Signs Temp Pulse Resp BP Pulse Ox 97.7 F L 72 22 H 122/72 H 94 02/22/22 03:39 02/22/22 07:20 02/22/22 07:20 02/22/22 03:39 02/22/22 07:20 Oxygen Flow Rate (L/min) [4] 3 Oxygen Flow Rate (L/min) [3] 3 Oxygen Flow Rate (L/min) [2] 3 Oxygen Flow Rate (L/min) [1 ( 3 Initial Baseline)] Oxygen Flow Rate (L/min) 2 Oxygen Delivery Method [4] Nasal Cannula Oxygen Delivery Method [3] Nasal Cannula Oxygen Delivery Method [2] Nasal Cannula Oxygen Delivery Method [1 ( Nasal Cannula Initial Baseline)] Oxygen Delivery Method Nasal Cannula Weight: 93 lb 14.671 oz Body Mass Index (BMI) 15.5 Intake & Output: Intake and Output for Last 24 Hours 02/20/22 02/21/22 02/22/22 23:59 23:59 23:59 Intake Total 970 / 970 602 / 602 100 / 100 Output Total 650 / 650 Balance 320 / 320 602 / 602 100 / 100 Lab / Micro Data Result Diagrams: 02/22/22 06:03 02/22/22 06:03 Labs: Laboratory Results - last 24 hr 02/17/22 05:20: Histoplasma Antibody Negative 02/17/22 12:45: Fl Pathologist Comment Reviewed 02/21/22 12:08: POC Glucose 236 H 02/21/22 17:00: POC Glucose 311 H 02/21/22 21:46: POC Glucose 331 H 02/22/22 06:03: PT 16.1 H, INR 1.3 02/22/22 06:03: WBC 9.6, RBC 3.23 L, Hgb 9.6 L, Hct 30.5 L, MCV 94.4, MCH 29.7, MCHC 31.5 L, RDW Std Deviation 51.5 H, RDW Coeff of Oly 15.0 H, Plt Count 159, MPV 10.7, Immature Gran % (Auto) 0.500, Neut % (Auto) 77.2 H, Lymph % (Auto) 11.4 L, Metcalfe % (Auto) 10.7 H, Eos % (Auto) 0.2, Baso % (Auto) 0.0, Absolute Neuts (auto) 7.4, Absolute Lymphs (auto) 1.09, Nucleated RBC % 0 02/22/22 06:03: Sodium 141, Potassium 3.5, Chloride 107, Carbon Dioxide 29.0, Anion Gap 5, BUN 42 H, Creatinine 1.15 H, Estim Creat Clear Calc 26.24, Est GFR (MDRD) Af Amer 58 L, Est GFR (MDRD) Non-Af 48 L, BUN/Creatinine Ratio 36.5 H, Glucose 74, Calcium 7.5 L 02/22/22 06:21: POC Glucose 67 L 02/22/22 06:44: POC Glucose 111 H Cardiology Labs/Tests 02/22/22 06:03: PT 16.1 H, INR 1.3 02/22/22 06:03: WBC 9.6, RBC 3.23 L, Hgb 9.6 L, Hct 30.5 L, MCV 94.4, MCH 29.7, MCHC 31.5 L, Plt Count 159, MPV 10.7, Immature Gran % (Auto) 0.500, Neut % (Auto) 77.2 H, Lymph % (Auto) 11.4 L, Metcalfe % (Auto) 10.7 H, Eos % (Auto) 0.2, Baso % (Auto) 0.0, Absolute Neuts (auto) 7.4, Nucleated RBC % 0 02/22/22 06:03: Sodium 141, Potassium 3.5, Chloride 107, Carbon Dioxide 29.0, Anion Gap 5, BUN 42 H, Creatinine 1.15 H, Est GFR (MDRD) Af Amer 58 L, Est GFR (MDRD) Non-Af 48 L, BUN/Creatinine Ratio 36.5 H, Glucose 74, Calcium 7.5 L Rhythm: Sinus rhythm Physical Exam Narrative This is a thin somewhat cachectic appearing 81-year-old white female. Const alert and oriented x3 General Appearance: cooperative Orientation / Consciousness: awake Nutritional Appearance: cachectic HEENT normocephalic, head/scalp atraumatic, hearing grossly normal bilaterally, external ears normal and external nose normal Eyes PERRL, EOMs intact bilaterally, conjunctivae normal and no scleral icterus Neck full ROM, no lymphadenopathy, supple and no JVD Resp Resp Narrative: Diminished lung sounds throughout, especially left base. Auscultation: diminished lung sounds bilateral (L>R) lower Cardio regular rate, regular rhythm, S1 normal heart sound and S2 normal heart sound Cardio Narrative: Distant heart sounds noted GI normal to inspection, nondistended, normoactive bowel sounds, soft to palpation, non-tender and non-distended Extremity normal to inspection, normal capillary refill, no clubbing, cyanosis or edema and no pedal edema Skin no rashes or lesions noted Neuro oriented x3, CN's II-XII intact bilaterally, moves all extremities and no focal motor deficits Psych mental status grossly normal, cooperative and affect normal Assessment & Plan Assessment/Plan (1) Atherosclerosis of coronary artery of [place] heart without angina pectoris: PLAN: The patient has been found to have extensive underlying multivessel CAD. She has been recommended for tertiary care center evaluation for high risk multivessel PCI versus CABG. a transfer request has been placed to [facility]. Her medications have been adjusted. She appears to be tolerating them thus far. (2) Cardiomyopathy: QUALIFIERS: Cardiomyopathy type: ischemic Qualified Code(s): I25.5 - Ischemic cardiomyopathy PLAN: The patient does have a finding compatible with underlying cardiom yopathy thought related to her underlying multivessel CAD. She will need to continue medical management which will include medication as noted above as well as medications such as afterload reducing agents. Based upon her overall clinical status she has been placed on nitrate therapy and hydralazine therapy. She appears to be tolerating it thus far. Also, over time, if her LV systolic function does not improve she will need to be considered for ICD therapy. (3) CHF (congestive heart failure): PLAN: The patient has had findings compatible with CHF. 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 (4) Atrial fibrillation: PLAN: The patient has demonstrated evidence compatible with paroxysmal atrial fibrillation. She appears to be without acute symptoms. She will need to continue medical therapy such as rate control. It may be reasonable to initiate antiarrhythmic therapy such as amiodarone and attempt to maintain sinus rhythm. Her oral anticoagulant has been placed on hold. Her INR has decreased. She is continuing subcutaneous anticoagulant therapy in the interim. (5) Pleural effusion: PLAN: She has had pleural effusions. It appears she has undergone thoracentesis. Based upon the report 600 cc of transudate was removed. She will need to continue medical management. (6) RENE (acute kidney injury): PLAN: Her renal function will need to be followed. This will have to be taken into consideration with adjustment of medications. (7) Pneumonia: PLAN: She has also been evaluated and treated for pneumonia. She will continue under the care of internal medicine/pulmonology/critical care medicine. (8) Benign essential HTN: PLAN: Her blood pressures will need to be followed with agents adjusted as necessary. Addt'l Comments The patient's case has been discussed with her at length. At the present time she is continuing medical therapy. She is pending transfer to [facility] for advanced cardiovascular evaluation care. This note was generated using a voice recognition system and there may be incorrect words, spelling or punctuation that were not noted when reviewing the office note prior to saving. Procedure Criteria Type of Procedure Procedure Type: Elective Elective Risks - COVID COVID Risk Discussion: The surgeon/proceduralist and patient have discussed in detail the risk of exposure to and/or potential harm posed by the COVID-19 virus with having a surgery/procedure at this time versus the risk of delaying the surgery/procedure. It is not possible to know either the risk of delaying the surgery or procedure or chance of getting an infection with perfect accuracy, but a joint decision was made between the patient and the surgeon/proceduralist to proceed at this time with the scheduled surgery/procedure as indicated on the consent form.
--- NOTE | 2022-02-22 08:47 | CASEMGMT ---
According to the [facility] website, the following are in-network tertiary facilities: [facility], [place], [facility], [facility], [facility], [facility], [place], [employer], and . Génesis CHAPA CM
[2022-02-22] MEDS: Glimepiride 1 MG Tablet 0.5 MG PO (09:09)
[2022-02-22] MEDS: amLODIPine 5 MG Tablet PO (09:09)
[2022-02-22] MEDS: predniSONE 20 MG Tablet 40 MG PO (09:09)
[2022-02-22] MEDS: hydrALAZINE 10 MG Tablet PO ×2 (09:09→21:15)
[2022-02-22] MEDS: Enoxaparin 40 MG/0.4 ML Syringe SC (09:09)
[2022-02-22] MEDS: Pantoprazole Sodium 20 MG Tablet PO (09:09)
[2022-02-22] MEDS: Ergocalciferol 1.25 MG (50, 000 UNIT) Capsule PO (09:09)
[2022-02-22] MEDS: Carvedilol 3.125 MG TABLET PO ×2 (09:09→21:15)
[2022-02-22] MEDS: Furosemide 20 MG Tablet PO (09:09)
[2022-02-22] MEDS: Aspirin E.C. 81 MG Tablet PO (09:10)
[2022-02-22] MEDS: Insulin Lispro 100 UNIT/ML INSULN.PEN SC ×3 (11:52→21:21)
[2022-02-22 12:00] LABS: Bedside Glucose 262 mg/dL (74-106)
--- NOTE | 2022-02-22 14:12 | PCM.PN.HOSP ---
Documented by User: Gulshan WEBSTER 02/22/22 14:23 Subjective Subjective Patient is an 81-year-old female comfortably resting in bed, alert and orient x3. Patient denies development of any new symptoms overnight. Does not appear in acute distress. Objective Data Objective Data Vital Signs: Vital Signs Temp Pulse Resp BP Pulse Ox 97.8 F 76 22 H 119/67 91 02/22/22 08:55 02/22/22 11:21 02/22/22 11:21 02/22/22 09:09 02/22/22 12:07 Oxygen Flow Rate (L/min) [4] 3 Oxygen Flow Rate (L/min) [3] 3 Oxygen Flow Rate (L/min) [2] 3 Oxygen Flow Rate (L/min) [1 ( 3 Initial Baseline)] Oxygen Flow Rate (L/min) [ 4 AMBULATING with Oxygen #2] Oxygen Flow Rate (L/min) [ 2 AMBULATING with Oxygen #1] Oxygen Flow Rate (L/min) [ 0 AMBULATING on Room Air] Oxygen Flow Rate (L/min) [At 0 REST on Room Air] Oxygen Flow Rate (L/min) 3 Oxygen Delivery Method [4] Nasal Cannula Oxygen Delivery Method [3] Nasal Cannula Oxygen Delivery Method [2] Nasal Cannula Oxygen Delivery Method [1 ( Nasal Cannula Initial Baseline)] Oxygen Delivery Method Nasal Cannula Weight: 93 lb 14.671 oz Body Mass Index (BMI) 15.5 Intake & Output: Intake and Output for Last 24 Hours 02/20/22 02/21/22 02/22/22 23:59 23:59 23:59 Intake Total 970 / 970 602 / 602 620 / 620 Output Total 650 / 650 Balance 320 / 320 602 / 602 620 / 620 Medical Nutrition Assessment Dietitian: Malnutrition Criteria Met Start: 02/17/22 13:06 Freq: Status: Active Protocol: Document 02/22/22 10:09 RMA (Rec: 02/22/22 10:09 RMA [id number]) Nutrition Malnutrition Evidence of Malnutrition Exists Yes Malnutrition (severe): Chronic Evidenced By Suboptimal Energy Intake ( Severe),Physical Changes ( Severe) Clinical Problem Chronic Disease or Condition Related Malnutrition Etiology severe, chronic malnutrition related to inadequate energy intake w/ increased energy needs due to pulmonary disease Signs/Symptoms as evidenced by estimated energy intake meeting <75% of estimated energy needs >3 months; severe muscle wasting/ fat loss evident per physical exam- depletion noted in orbital areas, temples, scapula, lower extremities; protrusion of clavicle, acromion process; BMI 15.5 Status Active Problem Recommendation Dietitian Recommendations/Changes Continue Regular, no added salt diet and Nepro CarbSteady 120mL 4x/day with medpass-- encourage oral intake. Will try magic cup BID w/ lunch and dinner for tolerance . Limit carbohydrates only as needed given fluctuating/ elevated blood glucose in the context of low BMI 15.2 and severe protein-calorie malnutrition. Lab / Micro Data Result Diagrams: 02/22/22 06:03 02/22/22 06:03 Labs: Laboratory Results - last 24 hr 02/17/22 05:20: Histoplasma Antibody Negative 02/17/22 12:45: Fl Pathologist Comment Reviewed 02/21/22 17:00: POC Glucose 311 H 02/21/22 21:46: POC Glucose 331 H 02/22/22 06:03: PT 16.1 H, INR 1.3 02/22/22 06:03: WBC 9.6, RBC 3.23 L, Hgb 9.6 L, Hct 30.5 L, MCV 94.4, MCH 29.7, MCHC 31.5 L, RDW Std Deviation 51.5 H, RDW Coeff of Oly 15.0 H, Plt Count 159, MPV 10.7, Immature Gran % (Auto) 0.500, Neut % (Auto) 77.2 H, Lymph % (Auto) 11.4 L, [place]uckolls % (Auto) 10.7 H, Eos % (Auto) 0.2, Baso % (Auto) 0.0, Absolute Neuts (auto) 7.4, Absolute Lymphs (auto) 1.09, Nucleated RBC % 0 02/22/22 06:03: Sodium 141, Potassium 3.5, Chloride 107, Carbon Dioxide 29.0, Anion Gap 5, BUN 42 H, Creatinine 1.15 H, Estim Creat Clear Calc 26.24, Est GFR (MDRD) Af Amer 58 L, Est GFR (MDRD) Non-Af 48 L, BUN/Creatinine Ratio 36.5 H, Glucose 74, Calcium 7.5 L 02/22/22 06:21: POC Glucose 67 L 02/22/22 06:44: POC Glucose 111 H 02/22/22 11:50: POC Glucose 262 H Micro: Microbiology 02/17/22 12:08 Urine, Random Streptococcus pneumoniae Antigen (M - Final 02/17/22 12:05 Urine, Clean Catch Legionella Antigen - Final Physical Exam Const alert, oriented x3 and no apparent distress HEENT head/scalp atraumatic and moist oral mucous membranes Head and Scalp: normocephalic Eyes PERRL, EOMs intact bilaterally and conjunctivae normal Neck no lymphadenopathy, supple and no JVD Resp normal respiratory effort, no retractions and no use of accessory muscles Resp Narrative: Patient requiring 2 L via nasal cannula to maintain oxygen saturations above 90%. Cardio regular rate, regular rhythm and no JVD GI normal to inspection, nondistended, normoactive bowel sounds and soft to palpation Extremity normal to inspection, full ROM and no clubbing, cyanosis or edema Skin no rashes or lesions noted, no wounds and skin turgor normal Neuro CN's II-XII intact bilaterally Psych affect normal Assessment & Plan Assessment/Plan (1) Pneumonia: (2) CHF (congestive heart failure): (3) Benign essential HTN: PLAN: Day 5 Discharge planning: Currently awaiting transfer to [facility]. 1) acute hypoxic respiratory failure, multifactorial etiology Likely due to possible COPD exacerbation, left-sided pleural effusion, significant CAD and acute systolic CHF. Echocardiogram from 02/18 demonstrated an EF of 50 to 20% with significant CAD. Cardiology at [facility] accepted patient, currently awaiting transfer. Continue Levaquin, prednisone, continue Coreg. 2) DM2 Continue Accu-Cheks sliding scale insulin, continue glimepiride. 3) HTN/HLD Continue BP regimen, continue statin. 4) GERD Continue PPI. 5) history of DVT Continue Coumadin. 6) severe protein calorie malnutrition with cachexia. Patient is 13.2. Dietitian following, continue Ensure 3 times daily. DVT - Lovenox Patient seen by Gulshan Mcclellan PA-C, under the supervision of Dr. Bernabe. Documented by User: Dr. Miles Bernabe MD 02/22/22 14:42 Objective Data Lab / Micro Data Result Diagrams: 02/22/22 06:03 02/22/22 06:03 Assessment & Plan Addt'l Comments This patient was seen in conjunction with Gulshan Mcclellan PA-C. I have independently interviewed and examined the patient and reviewed pertinent historical, laboratory, and other data. Please refer to Gulshan Mcclellan PA-C's note for details of this patient's presentation, findings, and recommendations. I have reviewed Gulshan Mcclellan PA-C's note and concur with documented findings. In brief, patient is an 81-year-old lady admitted with progressive shortness of breath. An assessment of acute hypoxic respiratory failure secondary to multiple factors including COPD CHF left-sided pleural effusion was made. Patient echo did demonstrate 15 to 20%. Cardiac cath demonstrated multivessel disease for which arrangements have been made for patient to be transferred to [facility] for intervention Physical Examination: GENERAL: cooperative HEENT: Atraumatic; EYES; Anicteric, Normal Conjunctiva NECK; supple, normal thyroid, RESPIRATORY: Diminished to auscultation CARDIOVASCULAR: Regular S1 S2, GI: soft, normoactive bowel sounds, : No Renal angle tenderness; EXTREMITIES: No edema, no clubbing, MUSCULOSKELETAL: no muscle wasting NEURO: Awake; no lateralizing signs. SKIN: No Rash PSYCH; Flat affect Assessment: 1. Acute hypoxic respiratory failure 2. Acute congestive heart failure with reduced ejection fraction?EF 15 to 20% 3. Left-sided pleural effusion 4. COPD 5. Diabetes mellitus type 2 6. Essential hypertension 7. Dyslipidemia 8. GERD 9. Tobacco dependence 10. Paroxysmal A. fib 11. Severe protein calorie malnutrition - Evidenced by suboptimal energy intake and physical changes. Dietitian on the case 12. DVT prophylaxis Recommendations: 1. I have discussed the results of my overview and impressions with the patient 2. Options for management were reviewed Total time spent by myself and the advanced practice practitioner evaluating patient, reviewing labs, subsequent management decisions, discussion with patient as well as other providers 40 minutes ( 25 of which was spent by myself) Charges/Coding Visit Charges Inpatient E&M: 48535 Subs Hosp L3
[2022-02-22 16:35] LABS: Bedside Glucose 387 mg/dL (74-106)
[2022-02-22] MEDS: Atorvastatin Calcium 10 MG Tablet PO (21:14)
[2022-02-22] MEDS: levoFLOXacin 250 MG Tablet PO (21:14)
[2022-02-22] MEDS: morphine (oral solution) 10MG/0.5ML Syringe 2.5 MG PO (22:29)
[2022-02-23] VITALS (17 sets, daily range): BP systolic 129–143; BP diastolic 40–99; PULSE 77–99; RESP 18–20; TEMP 35.8–36.7; O2SAT 96–100
--- NOTE | 2022-02-23 02:09 | PCM.HOSP.N ---
Hospitalist Note Notified by Felicitas CHAPA that patient had a 12 beat run of VT. Patient's potassium yesterday was 3.5, no magnesium level this admission. Will obtain potassium and magnesium level stat.
[2022-02-23 03:03] LABS: International Normalized Ratio 1.2; Potassium 3.2 mmol/L (3.5-5.1); Prothrombin Time (Protime)PT. 15.2 SECONDS (11.7-14.9)
[2022-02-23 03:11] LABS: Magnesium 1.3 mg/dL (1.6-2.6)
[2022-02-23] MEDS: Potassium Chloride Oral Tablet 20 MEQ 40 MEQ PO (05:15)
[2022-02-23] MEDS: Isosorbide DN 10 MG Tablet 5 MG PO ×3 (06:15→21:02)
[2022-02-23 06:16] LABS: Bedside Glucose 85 mg/dL (74-106)
[2022-02-23] MEDS: Ipratropium/Albuterol Sulfate 3 ML AMPUL.NEB INHALATION ×4 (06:55→20:01)
[2022-02-23 07:05] LABS: Bedside Glucose 450 mg/dL (74-106)
[2022-02-23 07:05] LABS: Bedside Glucose 423 mg/dL (74-106)
[2022-02-23] MEDS: predniSONE 20 MG Tablet 40 MG PO (08:29)
[2022-02-23] MEDS: Aspirin E.C. 81 MG Tablet PO (08:30)
[2022-02-23] MEDS: Glimepiride 1 MG Tablet 0.5 MG PO (08:30)
--- NOTE | 2022-02-23 09:46 | CASEMGMT ---
Addendum entered by Eden Rubin 02/23/22 10:42: Dr. Bernabe and Dr. Prescott aware that no beds available at [facility]. CM to follow. Génesis CHAPA CM Original Note: PCU medical secretary teacher called [facility] and they state they have no beds available for pt at this time. Génesis CHAPA CM
[2022-02-23] MEDS: hydrALAZINE 10 MG Tablet PO ×2 (10:44→21:03)
[2022-02-23] MEDS: Pantoprazole Sodium 20 MG Tablet PO (10:44)
[2022-02-23] MEDS: Enoxaparin 40 MG/0.4 ML Syringe SC (10:45)
[2022-02-23] MEDS: Carvedilol 3.125 MG TABLET PO ×2 (10:45→21:03)
[2022-02-23] MEDS: Furosemide 20 MG Tablet PO (10:45)
[2022-02-23] MEDS: amLODIPine 5 MG Tablet PO (10:45)
[2022-02-23] MEDS: Insulin Lispro 100 UNIT/ML INSULN.PEN SC ×3 (11:40→21:02)
[2022-02-23 11:50] LABS: Bedside Glucose 388 mg/dL (74-106)
--- NOTE | 2022-02-23 13:46 | CASEMGMT ---
ARABELLA received a call from Fabi Ortiz with [facility]. ARABELLA let her know when patient was admitted and that patient is awaiting transfer to another hospital. Fabi asked that ARABELLA let her know where patient ends up going. ARABELLA will do this. Merline SAUNDERS
--- NOTE | 2022-02-23 15:08 | PCM.PN.HOSP ---
Documented by User: Gulshan WEBSTER 02/23/22 16:13 Subjective Subjective Patient is an 81-year-old female comfortably resting in bed, alert and orient x3. Patient denies development of any new symptoms overnight. Does not appear in acute distress. Objective Data Objective Data Vital Signs: Vital Signs Temp Pulse Resp BP Pulse Ox 98.0 F 81 18 134/76 H 98 02/23/22 11:00 02/23/22 13:03 02/23/22 11:00 02/23/22 11:00 02/23/22 12:07 Oxygen Flow Rate (L/min) [4] 3 Oxygen Flow Rate (L/min) [3] 3 Oxygen Flow Rate (L/min) [2] 3 Oxygen Flow Rate (L/min) [1 ( 3 Initial Baseline)] Oxygen Flow Rate (L/min) [ 4 AMBULATING with Oxygen #2] Oxygen Flow Rate (L/min) [ 2 AMBULATING with Oxygen #1] Oxygen Flow Rate (L/min) [ 0 AMBULATING on Room Air] Oxygen Flow Rate (L/min) [At 0 REST on Room Air] Oxygen Flow Rate (L/min) 2 Oxygen Delivery Method [4] Nasal Cannula Oxygen Delivery Method [3] Nasal Cannula Oxygen Delivery Method [2] Nasal Cannula Oxygen Delivery Method [1 ( Nasal Cannula Initial Baseline)] Oxygen Delivery Method Nasal Cannula Weight: 95 lb 10.89 oz Body Mass Index (BMI) 15.5 Intake & Output: Intake and Output for Last 24 Hours 02/21/22 02/22/22 02/23/22 23:59 23:59 23:59 Intake Total 602 / 602 1220 / 1520 1004 / 1004 Output Total 0 / 0 Balance 602 / 602 1220 / 1520 1004 / 1004 Medical Nutrition Assessment Dietitian: Malnutrition Criteria Met Start: 02/17/22 13:06 Freq: Status: Active Protocol: Document 02/22/22 10:09 RMA (Rec: 02/22/22 10:09 RMA [id number]) Nutrition Malnutrition Evidence of Malnutrition Exists Yes Malnutrition (severe): Chronic Evidenced By Suboptimal Energy Intake ( Severe),Physical Changes ( Severe) Clinical Problem Chronic Disease or Condition Related Malnutrition Etiology severe, chronic malnutrition related to inadequate energy intake w/ increased energy needs due to pulmonary disease Signs/Symptoms as evidenced by estimated energy intake meeting <75% of estimated energy needs >3 months; severe muscle wasting/ fat loss evident per physical exam- depletion noted in orbital areas, temples, scapula, lower extremities; protrusion of clavicle, acromion process; BMI 15.5 Status Active Problem Recommendation Dietitian Recommendations/Changes Continue Regular, no added salt diet and Nepro CarbSteady 120mL 4x/day with medpass-- encourage oral intake. Will try magic cup BID w/ lunch and dinner for tolerance . Limit carbohydrates only as needed given fluctuating/ elevated blood glucose in the context of low BMI 15.2 and severe protein-calorie malnutrition. Lab / Micro Data Result Diagrams: 02/22/22 06:03 02/23/22 02:45 Labs: Laboratory Results - last 24 hr 02/22/22 16:25: POC Glucose 387 H 02/22/22 21:18: POC Glucose 450 H 02/22/22 21:20: POC Glucose 423 H 02/23/22 02:45: PT 15.2 H, INR 1.2 02/23/22 02:45: Potassium 3.2 L 02/23/22 02:45: Magnesium 1.3 L 02/23/22 06:05: POC Glucose 85 02/23/22 11:38: POC Glucose 388 H Micro: Microbiology 02/17/22 12:08 Urine, Random Streptococcus pneumoniae Antigen (M - Final 02/17/22 12:05 Urine, Clean Catch Legionella Antigen - Final Physical Exam Const alert, oriented x3 and no apparent distress HEENT head/scalp atraumatic and moist oral mucous membranes Head and Scalp: normocephalic Eyes PERRL, EOMs intact bilaterally and conjunctivae normal Neck no lymphadenopathy, supple and no JVD Resp normal respiratory effort, no retractions and no use of accessory muscles Resp Narrative: Satting 98% on 2 L. Cardio regular rate, regular rhythm and no JVD GI normal to inspection, nondistended, normoactive bowel sounds and soft to palpation Extremity normal to inspection, full ROM and no clubbing, cyanosis or edema Skin no rashes or lesions noted, no wounds and skin turgor normal Neuro CN's II-XII intact bilaterally Psych Psych Narrative: Anxiety in regards to transfer. Mood & Affect: anxious Assessment & Plan Assessment/Plan (1) History of left heart catheterization: (2) Atherosclerosis of coronary artery of [place] heart without angina pectoris: (3) Pneumonia: PLAN: Day 6 Discharge planning: Currently awaiting transfer to [facility]. 1) acute hypoxic respiratory failure, multifactorial etiology Likely due to possible COPD exacerbation, left-sided pleural effusion, significant CAD and acute systolic CHF. Echocardiogram from 02/18 demonstrated an EF of 50 to 20% with significant CAD. Cardiology at [facility] accepted patient, currently awaiting transfer. Continue Levaquin, prednisone, continue Coreg. 2) hypokalemia/hypomagnesemia Potassium was 3.2 and magnesium was 1.3. Obtained due to 12-second run of V. tach observed overnight. Electrolytes replaced. Will monitor. 3) HTN/HLD Continue BP regimen, continue statin. 4) GERD Continue PPI. 5) history of DVT Continue Coumadin. 6) severe protein calorie malnutrition with cachexia. Patient is 13.2. Dietitian following, continue Ensure 3 times daily. 7) DM2 Continue Accu-Cheks sliding scale insulin, continue glimepiride. DVT - Lovenox Patient seen by Gulshan Mcclellan PA-C, under the supervision of Dr. Bernabe. Documented by User: Dr. Miles Bernabe MD 02/23/22 17:10 Objective Data Lab / Micro Data Result Diagrams: 02/22/22 06:03 02/23/22 02:45 Assessment & Plan Addt'l Comments This patient was seen in conjunction with Gulshan Mcclellan PA-C. I have independently interviewed and examined the patient and reviewed pertinent historical, laboratory, and other data. Please refer to Gulshan Mcclellan PA-C's note for details of this patient's presentation, findings, and recommendations. I have reviewed Gulshan Mcclellan PA-C's note and concur with documented findings. In brief, patient is an 81-year-old lady admitted with progressive shortness of breath. An assessment of acute hypoxic respiratory failure secondary to multiple factors including COPD CHF left-sided pleural effusion was made. Patient echo did demonstrate 15 to 20%. Cardiac cath demonstrated multivessel disease for which arrangements have been made for patient to be transferred to [facility] for intervention 02/23/2022; call was placed to [facility] to check on the status of patient's transfer. Bed still pending. Patient will be transferred once bed becomes available Physical Examination: GENERAL: cooperative HEENT: Atraumatic; EYES; Anicteric, Normal Conjunctiva NECK; supple, normal thyroid, RESPIRATORY: Diminished to auscultation CARDIOVASCULAR: Regular S1 S2, GI: soft, normoactive bowel sounds, : No Renal angle tenderness; EXTREMITIES: No edema, no clubbing, MUSCULOSKELETAL: no muscle wasting NEURO: Awake; no lateralizing signs. SKIN: No Rash PSYCH; Flat affect Assessment: 1. Acute hypoxic respiratory failure 2. Acute congestive heart failure with reduced ejection fraction?EF 15 to 20% 3. Left-sided pleural effusion 4. COPD 5. Diabetes mellitus type 2 6. Essential hypertension 7. Dyslipidemia 8. GERD 9. Tobacco dependence 10. Paroxysmal A. fib 11. Severe protein calorie malnutrition - Evidenced by suboptimal energy intake and physical changes. Dietitian on the case 12. DVT prophylaxis Recommendations: 1. I have discussed the results of my overview and impressions with the patient 2. Options for management were reviewed Total time spent by myself and the advanced practice practitioner evaluating patient, reviewing labs, subsequent management decisions, discussion with patient as well as other providers 40 minutes ( 25 of which was spent by myself) Charges/Coding Visit Charges Inpatient E&M: 87895 Subs Hosp L2
[2022-02-23 16:42] LABS: Bedside Glucose 271 mg/dL (74-106)
[2022-02-23] MEDS: Atorvastatin Calcium 10 MG Tablet PO (21:02)
[2022-02-23] MEDS: levoFLOXacin 250 MG Tablet PO (21:02)
[2022-02-23 22:31] LABS: Bedside Glucose 358 mg/dL (74-106)
[2022-02-23] MEDS: morphine (oral solution) 10MG/0.5ML Syringe 2.5 MG PO (22:33)
[2022-02-24] VITALS (11 sets, daily range): BP systolic 119–141; BP diastolic 61–91; PULSE 78–93; RESP 16–25; TEMP 36.5–36.9; O2SAT 93–99
[2022-02-24 06:09] LABS: Absolute Lymphocyte Count 1.13 X10^3/uL (0.83-4.51); Absolute Neutrophil Count 9.9 X10^3/uL (2.0-7.7); Basophil# 0.01 X10^3/uL; Basophil% 0.1 % (0-1); Eosinophil# 0.02 X10^3/uL; Eosinophils% 0.2 % (0-5); Hematocrit 32.2 % (37-47); Hemoglobin 10.3 g/dL (12.0-15.0); Lymphocyte # 1.13 X10^3/ul (0.83-4.51); Lymphocyte % 9.4 % (19-41); Mean Corpuscular Hgb 30.3 pg (27.0-32.0); Mean Corpuscular Volume 94.7 fL (81-99); Mean Platelet Vol. 10.3 fl (6.2-12.0); Monocyte# 0.92 X10^3/uL; Monocyte% 7.6 % (0-10); NRBC Flagged by Analyzer 0 % (0-5); Neutrophil % 82.1 % (47-70); Platelet Count 153 K/mm3 (150-450); RBC Distribution Width CV 15.3 % (11.6-14.6); RBC Distribution Width SD 52.7 fl (35.1-43.9); White Blood Count 12.1 K/mm3 (4.4-11.0)
[2022-02-24 06:29] LABS: Anion Gap 6 (5-15); BUN 27 mg/dL (7-18); BUN/Creat Ratio 24.5 RATIO (10-20); Calcium,Total 7.4 mg/dL (8.5-10.1); Chloride 104 mmol/L (98-107); EST Glomerular Filtration Rate 51 mL/min (>60); Est Glom Filt Rate - Afr Amer 61 mL/min (>60); Estimated Creatinine Clearance 26.02 ml/min; Glucose 80 mg/dL (74-106); Magnesium 1.5 mg/dL (1.6-2.6); Potassium 3.3 mmol/L (3.5-5.1); Sodium Level 142 mmol/L (136-145)
[2022-02-24] MEDS: Isosorbide DN 10 MG Tablet 5 MG PO ×2 (06:36→14:02)
[2022-02-24] MEDS: Ipratropium/Albuterol Sulfate 3 ML AMPUL.NEB INHALATION ×3 (06:40→14:35)
[2022-02-24 07:00] LABS: Bedside Glucose 93 mg/dL (74-106)
[2022-02-24] MEDS: Aspirin E.C. 81 MG Tablet PO (08:26)
[2022-02-24] MEDS: predniSONE 20 MG Tablet 40 MG PO (08:27)
[2022-02-24] MEDS: Glimepiride 1 MG Tablet 0.5 MG PO (08:27)
[2022-02-24] MEDS: hydrALAZINE 10 MG Tablet PO (08:28)
[2022-02-24] MEDS: Carvedilol 3.125 MG TABLET PO (08:29)
[2022-02-24] MEDS: Enoxaparin 40 MG/0.4 ML Syringe SC (08:32)
[2022-02-24] MEDS: Furosemide 20 MG Tablet PO (08:32)
[2022-02-24] MEDS: amLODIPine 5 MG Tablet PO (08:33)
[2022-02-24] MEDS: Pantoprazole Sodium 20 MG Tablet PO (08:33)
--- NOTE | 2022-02-24 10:49 | CASEMGMT ---
Per Radha, PCU unit secretary, [facility] states beds are d/c dependent. Génesis CHAPA CM
--- NOTE | 2022-02-24 10:52 | PN.HOSP_ITS ---
Documented by User: Gulshan WEBSTER 02/24/22 11:16 Subjective Subjective Patient is an 81-year-old female comfortably resting in bed, alert and orient x3. Patient is anxious about when she will be able to transfer, but she does not want to try and initiate transfer to any other facility at this time. Objective Data Objective Data Vital Signs: Vital Signs Temp Pulse Resp BP Pulse Ox 97.7 F L 87 18 137/91 H 95 02/24/22 08:48 02/24/22 08:48 02/24/22 08:48 02/24/22 08:48 02/24/22 08:48 Oxygen Flow Rate (L/min) [4] 3 Oxygen Flow Rate (L/min) [3] 3 Oxygen Flow Rate (L/min) [2] 3 Oxygen Flow Rate (L/min) [1 ( 3 Initial Baseline)] Oxygen Flow Rate (L/min) [ 4 AMBULATING with Oxygen #2] Oxygen Flow Rate (L/min) [ 2 AMBULATING with Oxygen #1] Oxygen Flow Rate (L/min) [ 0 AMBULATING on Room Air] Oxygen Flow Rate (L/min) [At 0 REST on Room Air] Oxygen Flow Rate (L/min) 2 Oxygen Delivery Method [4] Nasal Cannula Oxygen Delivery Method [3] Nasal Cannula Oxygen Delivery Method [2] Nasal Cannula Oxygen Delivery Method [1 ( Nasal Cannula Initial Baseline)] Oxygen Delivery Method Nasal Cannula Weight: 89 lb 1.068 oz Body Mass Index (BMI) 15.5 Intake & Output: Intake and Output for Last 24 Hours 02/22/22 02/23/22 02/24/22 23:59 23:59 23:59 Intake Total 1220 / 1520 1244 / 1444 500 / 500 Output Total 0 / 300 700 / 700 Balance 1220 / 1520 1244 / 1144 -200 / -200 Medical Nutrition Assessment Dietitian: Malnutrition Criteria Met Start: 02/17/22 13:06 Freq: Status: Active Protocol: Document 02/22/22 10:09 RMA (Rec: 02/22/22 10:09 RMA [id number]) Nutrition Malnutrition Evidence of Malnutrition Exists Yes Malnutrition (severe): Chronic Evidenced By Suboptimal Energy Intake ( Severe),Physical Changes ( Severe) Clinical Problem Chronic Disease or Condition Related Malnutrition Etiology severe, chronic malnutrition related to inadequate energy intake w/ increased energy needs due to pulmonary disease Signs/Symptoms as evidenced by estimated energy intake meeting <75% of estimated energy needs >3 months; severe muscle wasting/ fat loss evident per physical exam- depletion noted in orbital areas, temples, scapula, lower extremities; protrusion of clavicle, acromion process; BMI 15.5 Status Active Problem Recommendation Dietitian Recommendations/Changes Continue Regular, no added salt diet and Nepro CarbSteady 120mL 4x/day with medpass-- encourage oral intake. Will try magic cup BID w/ lunch and dinner for tolerance . Limit carbohydrates only as needed given fluctuating/ elevated blood glucose in the context of low BMI 15.2 and severe protein-calorie malnutrition. Lab / Micro Data Result Diagrams: 02/24/22 05:55 02/24/22 05:55 Labs: Laboratory Results - last 24 hr 02/23/22 11:38: POC Glucose 388 H 02/23/22 16:29: POC Glucose 271 H 02/23/22 21:01: POC Glucose 358 H 02/24/22 05:55: WBC 12.1 H, RBC 3.40 L, Hgb 10.3 L, Hct 32.2 L, MCV 94.7, MCH 30.3, MCHC 32.0, RDW Std Deviation 52.7 H, RDW Coeff of Oly 15.3 H, Plt Count 153, MPV 10.3, Immature Gran % (Auto) 0.600, Neut % (Auto) 82.1 H, Lymph % (Auto) 9.4 L, [place] % (Auto) 7.6, Eos % (Auto) 0.2, Baso % (Auto) 0.1, Absolute Neuts (auto) 9.9 H, Absolute Lymphs (auto) 1.13, Nucleated RBC % 0 02/24/22 05:55: Sodium 142, Potassium 3.3 L, Chloride 104, Carbon Dioxide 32.0, Anion Gap 6, BUN 27 H, Creatinine 1.10 H, Estim Creat Clear Calc 26.02, Est GFR (MDRD) Af Amer 61, Est GFR (MDRD) Non-Af 51 L, BUN/Creatinine Ratio 24.5 H, Glucose 80, Calcium 7.4 L, Magnesium 1.5 L 02/24/22 06:41: POC Glucose 93 Micro: Microbiology 02/17/22 12:08 Urine, Random Streptococcus pneumoniae Antigen (M - Final 02/17/22 12:05 Urine, Clean Catch Legionella Antigen - Final Physical Exam Const alert, oriented x3 and no apparent distress HEENT head/scalp atraumatic and moist oral mucous membranes Head and Scalp: normocephalic Eyes PERRL, EOMs intact bilaterally and conjunctivae normal Neck no lymphadenopathy, supple and no JVD Resp normal respiratory effort, no retractions and no use of accessory muscles Cardio regular rate, regular rhythm and no JVD GI normal to inspection, nondistended, normoactive bowel sounds and soft to pa lpation Extremity normal to inspection, full ROM and no clubbing, cyanosis or edema Skin no rashes or lesions noted and no wounds Neuro CN's II-XII intact bilaterally Psych affect normal Assessment & Plan Assessment/Plan (1) Pneumonia: (2) History of left heart catheterization: (3) Atherosclerosis of coronary artery of [place] heart without angina pectoris: PLAN: Day 7 Discharge planning: Currently awaiting transfer to [facility]. 1) acute hypoxic respiratory failure, multifactorial etiology Likely due to possible COPD exacerbation, left-sided pleural effusion, significant CAD and acute systolic CHF. Echocardiogram from 02/18 demonstrated an EF of 50 to 20% with significant CAD. Cardiology at [facility] accepted patient, currently awaiting transfer. IV antibiotics have been discontinued as 5-day course is incomplete. Continue prednisone, continue Coreg. 2) hypokalemia/hypomagnesemia Potassium was 3.2 and magnesium was 1.3. Obtained due to 12-second run of V. tach observed overnight on 02/22. Electrolytes replaced. Will monitor. 3) HTN/HLD Continue BP regimen, continue statin. 4) GERD Continue PPI. 5) history of DVT Continue Coumadin. 6) severe protein calorie malnutrition with cachexia. Patient is 13.2. Dietitian following, continue Ensure 3 times daily. 7) DM2 Continue Accu-Cheks sliding scale insulin, continue glimepiride. DVT - Lovenox Patient seen by Gulshan Mcclellan PA-C, under the supervision of Dr. Bernabe. Documented by User: Dr. Miles Bernabe MD 02/24/22 12:17 Objective Data Lab / Micro Data Result Diagrams: 02/24/22 05:55 02/24/22 05:55 Assessment & Plan Addt'l Comments This patient was seen in conjunction with Gulshan Mcclellan PA-C. I have independently interviewed and examined the patient and reviewed pertinent historical, laboratory, and other data. Please refer to Gulshan Mcclellan PA-C's note for details of this patient's presentation, findings, and recommendations. I have reviewed Gulshan Mcclellan PA-C's note and concur with documented findings. In brief, patient is an 81-year-old lady admitted with progressive shortness of breath. An assessment of acute hypoxic respiratory failure secondary to multiple factors including COPD CHF left-sided pleural effusion was made. Patient echo did demonstrate 15 to 20%. Cardiac cath demonstrated multivessel disease for which arrangements have been made for patient to be transferred to [facility] for intervention 02/23/2022; call was placed to [facility] to check on the status of patient's transfer. Bed still pending. Patient will be transferred once bed becomes available 02/24/2022; d/w patient about going to other facility, patient insists on going to [facility], awaiting transfer Physical Examination: GENERAL: cooperative HEENT: Atraumatic; EYES; Anicteric, Normal Conjunctiva NECK; supple, normal thyroid, RESPIRATORY: Diminished to auscultation CARDIOVASCULAR: Regular S1 S2, GI: soft, normoactive bowel sounds, : No Renal angle tenderness; EXTREMITIES: No edema, no clubbing, MUSCULOSKELETAL: no muscle wasting NEURO: Awake; no lateralizing signs. SKIN: No Rash PSYCH; Flat affect Assessment: 1. Acute hypoxic respiratory failure 2. Acute congestive heart failure with reduced ejection fraction?EF 15 to 20% 3. Left-sided pleural effusion 4. COPD 5. Diabetes mellitus type 2 6. Essential hypertension 7. Dyslipidemia 8. GERD 9. Tobacco dependence 10. Paroxysmal A. fib 11. Severe protein calorie malnutrition - Evidenced by suboptimal energy intake and physical changes. Dietitian on the case 12. DVT prophylaxis Recommendations: 1. I have discussed the results of my overview and impressions with the patient 2. Options for management were reviewed Total time spent by myself and the advanced practice practitioner evaluating patient, reviewing labs, subsequent management decisions, discussion with patient as well as other providers 40 minutes ( 25 of which was spent by myself) Charges/Coding Visit Charges Inpatient E&M: 38937 Subs Hosp L2
[2022-02-24] MEDS: Insulin Lispro 100 UNIT/ML INSULN.PEN SC ×2 (12:01→15:58)
[2022-02-24] MEDS: Potassium Chloride Oral Tablet 20 MEQ 40 MEQ PO (12:05)
[2022-02-24 12:10] LABS: Bedside Glucose 419 mg/dL (74-106)
[2022-02-24] MEDS: Potassium Chloride Oral Tablet 20 MEQ PO (15:59)
[2022-02-24 16:10] LABS: Bedside Glucose 349 mg/dL (74-106)
--- NOTE | 2022-02-24 17:56 | NURSING ---
Report called to [facility] to Josy CHAPA
--- NOTE | 2022-02-24 19:17 | PCM.DC.SUM ---
Providers Date of Admission: 02/17/22 Primary Care Physician: Dr. Yudith Rosales DO Consultations 02/17/22 07:38 Consult: Electrical Apprentice / Pulmonary Medicine Routine Consulting Provider: Pulmonary Medicine jesica Augusta Reason for Consult: severe copd and L pleural effusion EMERGENT Consult: No Notified: Yes Date Notified: 02/17/22 Time Notified: 07:38 Method of Notification: Verbal 02/17/22 09:32 Consult: Hospice / Palliative Care Routine Consulting Provider: [facility] Reason for Consult: Palliative care for COPD EMERGENT Consult: No Notified: Yes Date Notified: 02/17/22 Time Notified: 09:33 Method of Notification: Answering Service 02/19/22 08:06 Consult: Cardiology Routine Consulting Provider: Luis Prescott Reason for Consult: New systolic CHF EMERGENT Consult: No Notified: Yes Date Notified: 02/19/22 Time Notified: 08:06 Method of Notification: Text Comments:: core text Reason For Visit: PNEUMONIA, PLEURAL EFFUSION Diagnosis Discharge Diagnosis (1) Pneumonia: Status: Acute Code(s): J18.9 - Pneumonia, unspecified organism (2) History of left heart catheterization: Status: Acute Code(s): Z98.890 - Other specified postprocedural states (3) Atherosclerosis of coronary artery of [place] heart without angina pectoris: Status: Acute Code(s): I25.10 - Atherosclerotic heart disease of [place] coronary artery without angina pectoris Medications at Discharge Home Medications omeprazole 20 mg PO DAILY 12/30/14 atenolol 25 mg tablet 12.5 mg PO DAILY 08/28/18 simvastatin 20 mg PO DAILY 12/24/18 colesevelam 625 mg tablet 625 mg PO DAILY 12/13/19 glimepiride 0.5 mg PO DAILY 04/09/20 albuterol sulfate 2 puff INHALATION Q4H PRN PRN #2 inhaler 04/14/20 tiotropium bromide 2.5 mcg/actuation mist for inhalation 1 puff INHALATION DAILY #4 g 07/29/20 mometasone-formoterol HFA 200 mcg-5 mcg/actuation aerosol inhaler 2 inh INHALATION BID #3 ea 10/13/21 amlodipine 5 mg tablet 5 mg PO DAILY tab 12/28/21 ergocalciferol (vitamin D2) 1,250 mcg (50,000 unit) capsule 50,000 unit PO MO cap 12/28/21 warfarin 2 mg tablet 2 mg PO TUTHSA tab 12/28/21 diphenhydramine-acetaminophen [Tylenol PM Extra Strength] 1 tab PO QHS PRN 01/18/22 doxycycline hyclate 100 mg PO BID #10 tab 01/19/22 prednisone 60 mg PO DAILY #15 tablet 02/12/22 warfarin 4 mg PO SUMOWEFR 02/12/22 Hospital Course Procedures 2-D Echocardiogram and Cardiac catheterization Summary of Care Provided Minutes Spent on Discharge: 45 Hospital Course: In brief, patient is an 81-year-old lady admitted with progressive shortness of breath. An assessment of acute hypoxic respiratory failure secondary to multiple factors including COPD CHF left-sided pleural effusion was made. Patient echo did demonstrate 15 to 20%. Cardiac cath demonstrated multivessel disease for which arrangements have been made for patient to be transferred to [facility] [place] for intervention Assessment: 1. Acute hypoxic respiratory failure 2. Acute congestive heart failure with reduced ejection fraction?EF 15 to 20% 3. Left-sided pleural effusion 4. COPD 5. Diabetes mellitus type 2 6. Essential hypertension 7. Dyslipidemia 8. GERD 9. Tobacco dependence 10. Paroxysmal A. fib 11. Severe protein calorie malnutrition - Evidenced by suboptimal energy intake and physical changes. Dietitian on the case 12. DVT prophylaxis Physical Exam Narrative Physical Examination: GENERAL: cooperative HEENT: Atraumatic; EYES; Anicteric, Normal Conjunctiva NECK; supple, normal thyroid, RESPIRATORY: Diminished to auscultation CARDIOVASCULAR: Regular S1 S2, GI: soft, normoactive bowel sounds, : No Renal angle tenderness; EXTREMITIES: No edema, no clubbing, MUSCULOSKELETAL: no muscle wasting NEURO: Awake; no lateralizing signs. SKIN: No Rash PSYCH; Flat affect Weight / BMI Weight Weight: 40.4 kg Body Mass Index (BMI) 15.5 ABG / Lab / Microbiology Data Result Diagrams: 02/24/22 05:55 02/24/22 05:55 Laboratory: Laboratory Results - last 24 hr 02/23/22 21:01: POC Glucose 358 H 02/24/22 05:55: WBC 12.1 H, RBC 3.40 L, Hgb 10.3 L, Hct 32.2 L, MCV 94.7, MCH 30.3, MCHC 32.0, RDW Std Deviation 52.7 H, RDW Coeff of Oly 15.3 H, Plt Count 153, MPV 10.3, Immature Gran % (Auto) 0.600, Neut % (Auto) 82.1 H, Lymph % (Auto) 9.4 L, [place] % (Auto) 7.6, Eos % (Auto) 0.2, Baso % (Auto) 0.1, Absolute Neuts (auto) 9.9 H, Absolute Lymphs (auto) 1.13, Nucleated RBC % 0 02/24/22 05:55: Sodium 142, Potassium 3.3 L, Chloride 104, Carbon Dioxide 32.0, Anion Gap 6, BUN 27 H, Creatinine 1.10 H, Estim Creat Clear Calc 26.02, Est GFR (MDRD) Af Amer 61, Est GFR (MDRD) Non-Af 51 L, BUN/Creatinine Ratio 24.5 H, Glucose 80, Calcium 7.4 L, Magnesium 1.5 L 02/24/22 06:41: POC Glucose 93 02/24/22 11:58: POC Glucose 419 H 02/24/22 15:56: POC Glucose 349 H Microbiology: Microbiology 02/24/22 17:25 Nasal Secretion SARS-CoV-2 Antigen (Rapid) - Final 02/17/22 12:08 Urine, Random Streptococcus pneumoniae Antigen (M - Final 02/17/22 12:05 Urine, Clean Catch Legionella Antigen - Final D/C Instructions Discharge Diet: Low fat / Low cholesterol Meaningful Use Info Meaningful Use Diagnoses (Choose all that apply): AMI AMI/Post PCI/Angioplasty Aspirin given w/in 24hrs of arrival?: Yes ASA at discharge?: Yes Antiplatelet Therapy at Discharge:: Yes Statins at discharge?: Yes Gt/ARB at discharge?: Yes Beta Kera at discharge?: Yes Done w/ Acute ME measure.: Yes Documented LVEF (%): 15 Discharge Plan Admission Admit Date/Time: 02/17/22 00:45 Attending Provider: Miles Bernabe Primary Care Provider: Yudith Rosales Consulting Providers: Baltazar Cuello ; Reed Hairston ; Nida Neely NP ; Valery Gallegos ; Miles Arreguin ; Martha Chase ; Karen Mas ; Faiza Avila ; Rina Clancy ESE TEACHER ; Luis Prescott Instructions Patient Instructions: Thoracentesis Dc Discharge Orders/Prescriptions Prescriptions: No Action atenolol 25 mg tablet 12.5 mg PO DAILY RF: 0 colesevelam [WelChol] 625 mg tablet 625 mg PO DAILY RF: 0 tiotropium bromide 2.5 mcg/actuation mist 1 puff inhalation DAILY Qty: 4 RF: 2 ergocalciferol (vitamin D2) 1,250 mcg (50,000 unit) capsule 50,000 unit PO MO RF: 0 warfarin 2 mg tablet 2 mg PO TUTHSA RF: 0 Hold Instructions: Resume on 01/21/22. amlodipine 5 mg tablet 5 mg PO DAILY RF: 0 omeprazole 20 MG capsule 20 mg PO DAILY RF: 0 simvastatin 20 MG tablet 20 mg PO DAILY RF: 0 glimepiride 1 MG tablet 0.5 mg PO DAILY RF: 0 albuterol sulfate 1 PUFF inhaler 2 puff inhalation Q4H PRN PRN (Reason: Sob &/Or Wheezing) Qty: 2 RF: 0 diphenhydramine-acetaminophen [Tylenol PM Extra Strength] 25-500 mg Tablet 1 tab PO QHS PRN (Reason: Sleep) RF: 0 doxycycline hyclate 100 mg tablet 100 mg PO BID Qty: 10 RF: 0 warfarin 2 mg tablet 4 mg PO SUMOWEFR RF: 0 prednisone 20 MG tablet 60 mg PO DAILY Qty: 15 RF: 0 Dulera 200-5 mcg/actuation HFA aerosol inhaler 2 inh inhalation BID Qty: 3 RF: 3 Referrals / Follow Up: Yudith Rosales DO [Primary Care Provider] - Shaista Fu PA [PHYSICIAN CONTROL SYSTEM COMPUTER SCIENTIST] - 02/25/22 1:00 pm Disposition Disposition (needs filled in before D/C Order can be placed): Acute Care Hospital Charges/Coding Visit Charges Inpatient E&M: 90496 Disch Hosp
== END 2022-02-24 19:11 | disposition short-term general hospital (02) | DRG 190 ==
LOC: ED 02-17 00:03 → PCU 02-17 01:14
PROVIDERS: Family Medicine; Internal Medicine; Internal Medicine Cardiovascular Disease; Nurse Practitioner Family; Admitting Provider Hospitalist; Emergency Provider Emergency Medicine; PCP Internal Medicine; Visit Provider Internal Medicine
DX: J44.1 Chronic obstructive pulmonary disease with (acute) exacerbation (principal); J18.9 Pneumonia, unspecified organism; J96.01 Acute respiratory failure with hypoxia; I50.21 Acute systolic (congestive) heart failure; E43 Unspecified severe protein-calorie malnutrition; N17.9 Acute kidney failure, unspecified; I13.0 Hypertensive heart and chronic kidney disease with heart failure and stage 1 through stage 4 chronic kidney disease, or unspecified chronic kidney disease; J90 Pleural effusion, not elsewhere classified; Z68.1 Body mass index [BMI] 19.9 or less, adult; E11.22 Type 2 diabetes mellitus with diabetic chronic kidney disease; J44.0 Chronic obstructive pulmonary disease with (acute) lower respiratory infection; I48.0 Paroxysmal atrial fibrillation; E11.65 Type 2 diabetes mellitus with hyperglycemia; N18.32 Chronic kidney disease, stage 3b; E55.9 Vitamin D deficiency, unspecified; K21.9 Gastro-esophageal reflux disease without esophagitis; E78.49 Other hyperlipidemia; I25.5 Ischemic cardiomyopathy; I25.10 Atherosclerotic heart disease of native coronary artery without angina pectoris; E87.6 Hypokalemia; F17.210 Nicotine dependence, cigarettes, uncomplicated; Z79.84 Long term (current) use of oral hypoglycemic drugs; Z79.01 Long term (current) use of anticoagulants; Z79.899 Other long term (current) drug therapy; Z79.52 Long term (current) use of systemic steroids; Z86.718 Personal history of other venous thrombosis and embolism; R79.1 Abnormal coagulation profile; T45.515A Adverse effect of anticoagulants, initial encounter
CPT/HCPCS: 32555; 36415; 71045; 71046; 80048; 80053; 82945; 82962; 83615; 83735; 84132; 84156; 84157; 84484; 85025; 85610; 85730; 86698; 86738; 86850; 86900; 86901; 87426; 87449; 88108; 88305; 88313; 88341; 88342; 89050; 93005; 93306; 93454; 94002; 94003; 94640; 94762; 97110; 97161; 97165; 97530; 97535; 97802; 97803; 99152; 99153; 99251; 99285; J7030; J7040; J7050; P9017; Q9967; A4216; C1769; C1894; G0463

== ENCOUNTER 2022-03-05 11:58 | Outpatient (RCR) | payer MEDICARE, MEDICAID, SELFPAY ==
[2022-02-21 03:24] VITALS: BMI 14.6
[2022-03-05 12:41] LABS: Hemoglobin 9.7 g/dL (12.0-15.0); Mean Corp Hgb Conc 32.3 g/dL (32-36); Mean Corpuscular Hgb 30.3 pg (27.0-32.0); Mean Corpuscular Volume 93.8 fL (81-99); Mean Platelet Vol. 11.4 fl (6.2-12.0); POSITIVE COUNT YES; Platelet Count 94 K/mm3 (150-450); RBC Distribution Width CV 15.1 % (11.6-14.6); RBC Distribution Width SD 51.8 fl (35.1-43.9); White Blood Count 10.1 K/mm3 (4.4-11.0)
[2022-03-05 12:46] LABS: International Normalized Ratio 1.2; Prothrombin Time (Protime)PT. 15.2 SECONDS (11.7-14.9)
[2022-03-05 13:07] LABS: PTHIN 162.2 pg/mL (18.4-80.1)
[2022-03-05 13:09] LABS: Albumin, Serum 2.4 g/dL (3.2-5.0); BUN 19 mg/dL (7-18); BUN/Creat Ratio 13.4 RATIO (10-20); Chloride 102 mmol/L (98-107); Creatinine, Serum 1.42 mg/dL (0.55-1.02); EST Glomerular Filtration Rate 38 mL/min (>60); Est Glom Filt Rate - Afr Amer 46 mL/min (>60); Glucose 215 mg/dL (74-106); Phosphorus 3.4 mg/dL (2.5-4.9); Potassium 3.6 mmol/L (3.5-5.1); Sodium Level 138 mmol/L (136-145)
[2022-03-05 13:10] LABS: Vitamin D,25 Hydroxy 120.9 ng/mL
== END 2022-03-05 18:00 | disposition home or self-care (01) ==
LOC: LAB 11:58
PROVIDERS: Family Provider Internal Medicine; PCP Internal Medicine; Referring Provider Internal Medicine; Visit Provider Internal Medicine
DX: Z86.718 Personal history of other venous thrombosis and embolism (principal); Z79.01 Long term (current) use of anticoagulants
CPT/HCPCS: 36415; 80069; 82306; 83970; 85027; 85610

== ENCOUNTER 2022-03-08 13:07 | Inpatient (IN) | payer MEDICARE, MEDICAID, SELFPAY ==
[2022-03-08] VITALS (12 sets, daily range): BP systolic 118–140; BP diastolic 71–92; PULSE 67–120; RESP 18–33; TEMP 36.3–36.9; O2SAT 92–100; BMI 13.7; BMI 13.9
--- NOTE | 2022-03-08 13:17 | EKG12_ITS ---
Test Reason : SOB Blood Pressure : / mmHG Vent. Rate : 094 BPM Atrial Rate : 094 BPM P-R Int : 122 ms QRS Dur : 092 ms QT Int : 404 ms P-R-T Axes : 084 067 243 degrees QTc Int : 505 ms Sinus rhythm with PSVC's Left ventricular hypertrophy Prolonged QT ST/T-wave abnormality: Consider LVH repolarization; myocardial ischemia Abnormal ECG Confirmed by ANURADHA GARAY, MARC ([id number]), subeditor LUIS MENDEZ ([id number]) on 03/10/2022 10:32:54 AM Referred By: MARCELLA Confirmed By:MARC LING MD
[2022-03-08 13:44] LABS: Absolute Lymphocyte Count 0.38 X10^3/uL (0.83-4.51); Absolute Neutrophil Count 7.1 X10^3/uL (2.0-7.7); Basophil# 0.01 X10^3/uL; Basophil% 0.1 % (0-1); Hematocrit 31.5 % (37-47); Hemoglobin 9.6 g/dL (12.0-15.0); Lymphocyte # 0.38 X10^3/ul (0.83-4.51); Mean Corp Hgb Conc 30.5 g/dL (32-36); Mean Corpuscular Hgb 30.3 pg (27.0-32.0); Mean Corpuscular Volume 99.4 fL (81-99); Mean Platelet Vol. 10.4 fl (6.2-12.0); Monocyte# 0.18 X10^3/uL; Monocyte% 2.3 % (0-10); NRBC Flagged by Analyzer 0 % (0-5); Neutrophil # 7.07 X10^3/uL (2.7-7.7); Neutrophil % 92.2 % (47-70); POSITIVE DIFFERENTIAL YES; Platelet Count 130 K/mm3 (150-450); RBC Distribution Width CV 14.9 % (11.6-14.6); RBC Distribution Width SD 54.9 fl (35.1-43.9); Red Blood Count 3.17 M/mm3 (4.2-5.4); White Blood Count 7.7 K/mm3 (4.4-11.0)
--- NOTE | 2022-03-08 13:45 | RAD_ITS ---
STUDY: X-RAY CHEST REASON FOR EXAM: Female, 81 years old. Hypoxia, shortness of breath TECHNIQUE: Single AP portable view of the chest. COMPARISON: Comparison is made with prior study dated 02/17/2022. FINDINGS: EKG electrodes are seen. Progressive pleural parenchymal changes at the left lung base as compared to the prior study. Stable increased markings at the right lung base suggestive of scarring. Normal size heart. Normal mediastinum and aniya. Normal visualized pulmonary arteries. There is atherosclerotic calcification of the aortic arch with tortuosity. There are degenerative changes of the visualized thoracic spine. Normal visualized ribs, clavicles, and shoulders. There is no demonstrated abnormality of the visualized soft tissue structures of the upper abdomen. RAD/Chest 1 View (Portable) IMPRESSION: Progressive pleural parenchymal changes at the left lung base. The remainder of the examination is unchanged. Electronically Signed: Yahir Healy MD at 14:01 EDT ,
[2022-03-08 13:46] LABS: Differential Indicated SCAN CRITERIA MET
[2022-03-08 13:56] LABS: Prothrombin Time (Protime)PT. 22.2 SECONDS (11.7-14.9)
[2022-03-08 14:08] LABS: ALB/GLOB Ratio 0.9 RATIO (0.9-2.4); AST(SGOT) 32 U/L (15-37); Alanine Aminotransfer ALT/SGPT 40 U/L (13-56); Albumin, Serum 2.6 g/dL (3.2-5.0); Alkaline Phosphatase 70 U/L (45-117); Anion Gap 9 (5-15); BUN 30 mg/dL (7-18); BUN/Creat Ratio 21.9 RATIO (10-20); Chloride 104 mmol/L (98-107); Creatinine, Serum 1.37 mg/dL (0.55-1.02); EST Glomerular Filtration Rate 39 mL/min (>60); Est Glom Filt Rate - Afr Amer 48 mL/min (>60); Estimated Creatinine Clearance 19.93 ml/min; Globulin 2.9 g/dL (2.2-4.2); Glucose 236 mg/dL (74-106); Potassium 3.8 mmol/L (3.5-5.1); Protein, Total 5.5 g/dL (6.4-8.2); Sodium Level 140 mmol/L (136-145); Troponin-I HS (w/2H Reflex) 152 pg/mL (3.0-54.0)
[2022-03-08 14:13] LABS: Lactic Acid 1.7 mmol/L (0.4-1.9)
--- NOTE | 2022-03-08 14:45 | EDS_ITS ---
HPI History of Present Illness Chief Complaint: Shortness of Breath Detail of Chief Complaint: Acute shortness of breath Informant: patient Onset/Context/Timing Onset: Today and Hours Context: sudden and rest Timing: Continuous Quality: Positive for Dyspnea on exertion and Wheezing; Negative for Orthopnea and PND Current Severity: Mild Maximum Severity: Severe Worsened by: Nothing Relieved by: Nothing and - (Better after patient was placed on oxygen by squad.) Associated Symptoms cough; Negative for rhinorrhea, post nasal drip, ear pain, fever, sore throat, subjective, chills, white sputum, yellow sputum or green sputum Chest Pain: Positive for None Narrative Narrative: Patient is a 81-year-old woman with history of COPD. She was recent diagnosed with lung cancer scheduled for PET scan. She abruptly got short of breath. She does have history of VTE. She is presently on Coumadin 2 mg. She was on Lovenox for 7 days. She denies any chest pain of any type including pleuritic. She denies leg pain, swelling discoloration. She denies fever, chills or night sweats. She denies orthopnea or PND. She denies black or maroon-colored stool. She denies bruising easily. She does have history of chronic shortness of breath however she is not normally on oxygen. She also has history of congestive heart failure recent pneumonia. There is also a history of atrial fibrillation. Of note patient is not a good informant. PE Risk Factors: Positive for Cancer, Prior DVT or PE and Recent immobilization; Negative for Recent surgery and Recent travel Prior similar symptoms: Yes (Pneumonia with pleural effusion) Recent Illness/Hospitalization: Yes PFSH PFS Medical History Anemia Atherosclerosis of coronary artery of [place] heart without angina pectoris Atrial fibrillation Benign essential HTN Celiac disease CHF (congestive heart failure) Chronic anticoagulation Chronic kidney disease Chronic renal failure, stage 5 COLD (chronic obstructive lung disease) COPD (chronic obstructive pulmonary disease) Diabetes mellitus Family history of lung cancer FCHL (familial combined hyperlipidemia) Gastroesophageal reflux disease History of DVT (deep vein thrombosis) Multiple excoriations Neoplasm of uncertain behavior of skin Pneumonia Pulmonary cachexia due to chronic obstructive pulmonary disease Solitary pulmonary nodule 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 Stage 1 mild COPD by GOLD classification Superficial thrombophlebitis of right leg Tobacco abuse Home Medications omeprazole 20 mg PO DAILY 12/30/14 [History Last Taken 03/08/22] albuterol sulfate 2 puff INHALATION Q4H PRN PRN #2 inhaler 04/14/20 [Rx Last Taken 03/08/22] tiotropium bromide 2.5 mcg/actuation mist for inhalation 1 puff INHALATION DAILY #4 g 07/29/20 [Rx Last Taken 03/08/22] aspirin [Aspirin Low-Strength] 81 mg PO DAILY 03/08/22 [History Last Taken 03/08/22] atorvastatin 40 mg PO QHS 03/08/22 [History Last Taken 03/07/22] carvedilol 3.125 mg PO BID 03/08/22 [History Last Taken 03/08/22] enoxaparin 40 mg SUBCUT DAILY 03/08/22 [History Last Taken 03/06/22] mometasone-formoterol [Dulera] 2 inh INHALATION BID 03/08/22 [History Last Taken 03/08/22] warfarin 2 mg PO MOWETHFR 03/08/22 [History Last Taken 03/08/22] warfarin 4 mg PO SUTUSA 03/08/22 [History Last Taken 03/07/22] Allergy/AdvReac Type Severity Reaction Status Date / Time diltiazem HCl [From Cardizem] Allergy Angioedema Verified 03/08/22 13:12 fluticasone furoate Allergy PT UNSURE Verified 03/08/22 13:12 [From Breo Ellipta] OF REACTION gatifloxacin [From Tequin] Allergy Unknown Verified 03/08/22 13:12 hydrochlorothiazide Allergy Other Verified 03/08/22 13:12 [From Maxzide] Penicillins [PCN] Allergy Hives Verified 03/08/22 13:12 triamterene [From Maxzide] Allergy Other Verified 03/08/22 13:12 vilanterol Allergy PT UNSURE Verified 03/08/22 13:12 [From Breo Ellipta] OF REACTION codeine AdvReac Upset Verified 03/08/22 13:12 Stomach Family History Father Diabetes Lung cancer Mother Heart disease Hypertension Surgical History History of appendectomy History of hysterectomy History of left heart catheterization (02/19/22) History of skin graft Status post insertion of dialysis catheter Social History household members: none Smoking Status: Former smoker second hand exposure: Yes alcohol intake: never substance use type: does not use caffeine: Yes what type of physical activity do you participate in: none ROS ROS ED Constitutional Constitutional ED: Denies chills, fever(s), sweats or weight loss Eyes Eyes: Denies blurry vision, change in vision or diplopia ENT ENT ED: Denies ear pain, rhinorrhea or sore throat Cardiovascular Cardiovascular: Reports racing heartbeat; Denies chest pain, orthopnea, palpitations or paroxysmal nocturnal dyspnea Respiratory/Chest Respiratory/Chest: Reports cough, dyspnea and dyspnea on exertion; Denies orthopnea, paroxysmal nocturnal dyspnea or sputum Gastrointestinal Gastrointestinal: Denies abdominal pain, diarrhea, melena, nausea or vomiting Genitourinary Genitourinary ED: Denies dysuria, hematuria or urinary frequency Musculoskeletal Musculoskeletal: Denies arthralgias, back pain, myalgias or neck pain Integumentary Denies rash Neurologic Neurologic: Denies headache(s) or weakness Psychiatric Psychiatric: Denies anxiety or depression Endocrine Endocrinology: Denies polydipsia, polyphagia or polyuria Hematologic/Lymphatic Hematologic/Lymphatic: Denies anemia, easy bleeding or easy bruising EXAM Physical Exam Const Vital Signs: 03/08/22 13:08 03/08/22 13:10 03/08/22 13:40 Temperature 97.5 F L 97.6 F L Temperature Source Temporal Temporal Pulse Rate 95 112 H Respiratory Rate 26 H 33 H Respiratory Effort Short of Breath Blood Pressure 122/79 H 122/79 H Blood Pressure Mean 93 93 Pulse Ox 99 99 Oxygen Delivery Method Nasal Cannula Nasal Cannula Nasal Cannula Oxygen Flow Rate (L/min) 2 2 2 Positive well developed and cachectic Constitutional Narrative: Patient has conversational dyspnea. She is tachypneic. She is also tachycardic. General Appearance ED: well developed and cachectic; Negative for NAD or pallor Nutritional Appearance: cachectic HEENT Reports TM's clear and dry mucous membranes atraumatic; Negative for tenderness Tympanic Membrane ED: Yes TM's clear Mouth ED: Yes dry mucous membranes Mouth: dry mucous membranes Eyes PERRL and EOMs intact bilaterally General Eye ED: Negative for pale conjunctiva or scleral icterus Neck no lymphadenopathy, supple and no meningeal signs Resp No normal respiratory effort and clear to auscultation bilaterally Resp Narrative: Patient has prolonged expiratory phase. There is no wheezing noted even with forced expiration. She is not moving much air. Auscultation: diminished lung sounds bilateral Cardio no murmurs Rhythm: abnormal rhythm irregularly irregular GI non-tender, non-distended and no masses Auscultation: normoactive bowel sounds Palpation: soft; Negative for hepatomegaly or splenomegaly Back/Spine no CVA tenderness and normal to inspection Extremity normal to inspection General Extremety ED: Negative for edema or tenderness General Extremity: Negative for edema Neuro oriented x3 and CN's II-XII intact bilaterally [place] Coma Scale: document GCS findings Spontaneous Obeys Commands Oriented 15 Sensorium / Orientation: alert Psych mental status grossly normal Thought Process: normal thought process Skin no wounds General Skin Exam: Negative for jaundice or pallor Lesions: no lesions Rashes: no rashes MDM MDM MDM Narrative Medical decision making narrative: We will need to evaluate if patient is properly anticoagulated. Differential diagnosis would include pulmonary embolus, pneumothorax, congestive heart failure, COPD exacerbation. VBG was obtained to assess for CO2 retention. VBG is consistent with mild acute hypercapnia on chronic hypercapnia. Her oxygen level is very low for a VBG as well. Case was discussed with hospitalist. Patient is not a candidate for bypass surgery. Her treatment is medical management. Suspect the patient had non- STEMI due to acute dyspnea. This may be due to COPD versus pulmonary embolus since she is subtherapeutic on her Coumadin. CTA was ordered. The CTA will be followed by Dr. Oumou Alaniz. Plan is admit to PCU. Patient did take aspirin this morning. Lab Data Attestation: I reviewed the patient's lab results. Lab results narrative: CBC is remarkable for anemia. INR is 2.0 which is not therapeutic for VTE. Patient's creatinine is elevated 1.37 with a GFR of 39. Glucose is elevated to 36. CO2 and anion gap are normal. Troponin is elevated 152. This raises concern that patient's acute dyspnea is due to myocardial ischemia. Will contact hospitalist for admission. Labs: Laboratory Results - last 24 hr 03/08/22 03/08/22 03/08/22 13:35 13:35 13:35 WBC 7.7 RBC 3.17 L Hgb 9.6 L Hct 31.5 L MCV 99.4 H D MCH 30.3 MCHC 30.5 L D RDW Std Deviation 54.9 H RDW Coeff of O[place] 14.9 H Plt Count 130 L MPV 10.4 Immature Gran % (Auto) 0.400 Neut % (Auto) 92.2 H Lymph % (Auto) 5.0 L [place] % (Auto) 2.3 Eos % (Auto) 0.0 Baso % (Auto) 0.1 Absolute Neuts (auto) 7.1 Absolute Lymphs (auto) 0.38 L Nucleated RBC % 0 Differential Comment COMMENT PT 22.2 H INR 2.0 Sodium 140 Potassium 3.8 Chloride 104 Carbon Dioxide 27.0 Anion Gap 9 BUN 30 H Creatinine 1.37 H Estim Creat Clear Calc 19.93 Est GFR (MDRD) Af Amer 48 L Est GFR (MDRD) Non-Af 39 L BUN/Creatinine Ratio 21.9 H Glucose 236 H Lactic Acid Calcium 8.0 L Total Bilirubin 0.40 AST 32 ALT 40 Alkaline Phosphatase 70 Troponin I High Sens 152 H* Total Protein 5.5 L Albumin 2.6 L Globulin 2.9 Albumin/Globulin Ratio 0.9 03/08/22 13:35 WBC RBC Hgb Hct MCV MCH MCHC RDW Std Deviation RDW Coeff of [place] Plt Count MPV Immature Gran % (Auto) Neut % (Auto) Lymph % (Auto) [place] % (Auto) Eos % (Auto) Baso % (Auto) Absolute Neuts (auto) Absolute Lymphs (auto) Nucleated RBC % Differential Comment PT INR Sodium Potassium Chloride Carbon Dioxide Anion Gap BUN Creatinine Estim Creat Clear Calc Est GFR (MDRD) Af Amer Est GFR (MDRD) Non-Af BUN/Creatinine Ratio Glucose Lactic Acid 1.7 Calcium Total Bilirubin AST ALT Alkaline Phosphatase Troponin I High Sens Total Protein Albumin Globulin Albumin/Globulin Ratio Radiography Chest X-Ray - ED: 1 View (Is evidence of hyperaeration with chronic changes on the right. Patient has elevated left hemidiaphragm with what appears to be an infiltrate. This may be the mass that she speaks of. The cardiac size is unremarkable. There is no obvious perihilar lymphadenopathy. Osseous structures reveal mechanic general operational test) and Read by ED Physician (Also structures real chronic changes. This was apparently interpreted by me at 1 400) Diagnostic Testing: Clinical Impression(s) from Imaging Studies Chest X-Ray 03/08/22 13:45 IMPRESSION: Progressive pleural parenchymal changes at the left lung base. The remainder of the examination is unchanged. Electronically Signed: Yahir Healy MD at 14:01 EDT , EKG Initial EKG: Attestation: I personally reviewed and interpreted this EKG as follows: Interpretation: Atrial Fibrillation (Ventricular rate is 94. QS duration 92 ms. QT duration 404 ms. [place] is normal. There is no ossific ST-T wave changes noted. The computer interpreted as sinus rhythm.) Critical Care Time Critical Care Time: Yes Critical care time (excluding procedures): 30-74 minutes (32 minutes), Including time spent: (History, physical, documentation, interpretation laboratory results), Discussing w/Patient &/or Family/[employer]land [employer], Discussing w/Consultants (Discussion with daughter moist. She is aware that patient was recently at [facility] and has nonoperable coronary disease. Treatment is medical management.) and Arranging Admission or Transfer Discharge Plan Dx/Rx/DC Orders Clinical Impression: Non-ST elevated myocardial infarction (non-STEMI), Shortness of breath, Cardiomyopathy, Atrial fibrillation, Acute exacerbation of chronic obstructive pulmonary disease, Acute and chronic respiratory failure with hypercapnia, Subtherapeutic international normalized ratio (INR) Disposition Disposition: Acute Care Hospital [facility]
--- NOTE | 2022-03-08 15:03 | HP.PCM.HOS_ITS ---
HPI - General General Date of Admission: 03/08/22 Date of Service: 03/08/22 Chief Complaint: Dyspnea HPI Narrative The patient is an 81 y/o F w/ PMHx: Chronic anemia/AOCD, COPD, Former tobacco use, HTN, HLD, CKD stage IV, Chronic Systolic CHF, Diabetes mellitus type II, GERD, PAF on coumadin, Severe protein calorie malnutrition, Hx DVT/PE on coumadin, Ongoing outpatient evaluation for L lung lesions suspected to be cancer reporting planned 03/09/22 PET scan at [place] following w/ [facility] pulmonary medicine, recently discharged 02/24/22 following evaluation for acute hypoxic respiratory failure in the setting of acute CHF exacerbation with a left-sided pleural effusion with elevated cardiac enzymes with cardiac catheterization demonstrating multivessel disease and echocardiogram with EF 15 to 20% prompting transfer to [facility] for evaluation for possible CABG however patient was evaluated and not felt an appropriate candidate for surgery with the decision for medical management discharged to home on 02/27/2022 at that time on aspirin, low-dose Coreg as well as statin therapy which patient promptly took her self off of secondary to muscle weakness and aching in addition to Lovenox bridging as well as Coumadin until INR therapeutic with last dose of bridge noted to be Tuesday who now re-presents to the [facility] ED on 03/08/22 with history of significantly worsened shortness of breath on day of presentation, increased work of breathing accessory muscle usage with no improvement with aerosols at home and chronic cough unchanged with no fevers or chills nor any increased swelling or worsened orthopnea. Work-up in the ED included T97.5, heart rate 95, BP 122/79, respiratory rate 26, 99% on 2 L nasal cannula, CBC with WC 7.7, hemoglobin 9.6, platelet 130 without marked left shift, lymphopenia present, coags with INR 2.0, CMP with BUN/creat 30/1.37, glucose 236, lactic acid 1.7, hepatic profile not marked appearing, initial troponin 152, EKG with rate controlled atrial fibrillation with no acute evidence of ischemia with nonspecific changes, chest x-ray with pleural-parenchymal changes left lung base. In the ED patient administered DuoNeb therapy, Solu-Medrol 125 mg IV x1 and CTPA obtained and pending upon evaluation of patient following discussions with the ED physician. [facility] Medical History Anemia Atherosclerosis of coronary artery of [place] heart without angina pectoris Atrial fibrillation Benign essential HTN Celiac disease CHF (congestive heart failure) Chronic anticoagulation Chronic kidney disease Chronic renal failure, stage 5 COLD (chronic obstructive lung disease) COPD (chronic obstructive pulmonary disease) Diabetes mellitus Family history of lung cancer FCHL (familial combined hyperlipidemia) Gastroesophageal reflux disease History of DVT (deep vein thrombosis) Multiple excoriations Neoplasm of uncertain behavior of skin Pneumonia Pulmonary cachexia due to chronic obstructive pulmonary disease Solitary pulmonary nodule 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 Stage 1 mild COPD by GOLD classification Superficial thrombophlebitis of right leg Tobacco abuse Home Medications omeprazole 20 mg PO DAILY 12/30/14 [History Last Taken 03/08/22] albuterol sulfate 2 puff INHALATION Q4H PRN PRN #2 inhaler 04/14/20 [Rx Last Taken 03/08/22] tiotropium bromide 2.5 mcg/actuation mist for inhalation 1 puff INHALATION DAILY #4 g 07/29/20 [Rx Last Taken 03/08/22] aspirin [Aspirin Low-Strength] 81 mg PO DAILY 03/08/22 [History Last Taken 03/08/22] atorvastatin 40 mg PO QHS 03/08/22 [History Last Taken 03/07/22] carvedilol 3.125 mg PO BID 03/08/22 [History Last Taken 03/08/22] enoxaparin 40 mg SUBCUT DAILY 03/08/22 [History Last Taken 03/06/22] mometasone-formoterol [Dulera] 2 inh INHALATION BID 03/08/22 [History Last Taken 03/08/22] warfarin 2 mg PO MOWETHFR 03/08/22 [History Last Taken 03/08/22] warfarin 4 mg PO SUTUSA 03/08/22 [History Last Taken 03/07/22] Allergy/AdvReac Type Severity Reaction Status Date / Time diltiazem HCl [From Cardizem] Allergy Angioedema Verified 03/08/22 13:12 fluticasone furoate Allergy PT UNSURE Verified 03/08/22 13:12 [From Breo Ellipta] OF REACTION gatifloxacin [From Tequin] Allergy Unknown Verified 03/08/22 13:12 hydrochlorothiazide Allergy Other Verified 03/08/22 13:12 [From Maxzide] Penicillins [PCN] Allergy Hives Verified 03/08/22 13:12 triamterene [From Maxzide] Allergy Other Verified 03/08/22 13:12 vilanterol Allergy PT UNSURE Verified 03/08/22 13:12 [From Breo Ellipta] OF REACTION codeine AdvReac Upset Verified 03/08/22 13:12 Stomach Family History Father Diabetes Lung cancer Mother Heart disease Hypertension Surgical History History of appendectomy History of hysterectomy History of left heart catheterization (02/19/22) History of skin graft Status post insertion of dialysis catheter Social History (Updated 03/08/22 @ 16:[address] Oumou Alaniz MD) household members: none Smoking Status: Former smoker how long ago did patient quit smoking: Quit ~ 1 month prior, smoked 1.5 ppd since youth until quit. second hand exposure: Yes alcohol intake: never substance use type: does not use caffeine: Yes what type of physical activity do you participate in: none ROS ROS Narrative Admission Review of Systems: CONSTITUTIONAL: No weight loss, fever, chills, + weakness or fatigue. HEENT: Eyes: No visual loss, blurred vision, double vision or yellow sclerae. Ears, Nose, Throat: No hearing loss, sneezing, congestion, runny nose or sore throat. SKIN: No rash or itching, lesions, wounds. CARDIOVASCULAR: No chest pain, chest pressure or chest discomfort, palpitations, edema, orthopnea, syncopal events. RESPIRATORY: + shortness of breath, cough with occasional sputum, occasional wheezing, No hemoptysis. GASTROINTESTINAL: No anorexia, nausea, vomiting or diarrhea, abdominal pain, melena, BRBPR. GENITOURINARY: No dysuria, frequency, urgency or retention. NEUROLOGICAL: No headache, dizziness, syncope, paralysis, ataxia, numbness or tingling in the extremities, focal weakness, change in bowel or bladder control, seizure. MUSCULOSKELETAL: + muscle, back pain, joint pain or stiffness. HEMATOLOGIC: + anemia, bleeding or bruising. LYMPHATICS: No enlarged nodes. No history of splenectomy. PSYCHIATRIC: No history of depression or anxiety. ENDOCRINOLOGIC: No reports of sweating, cold or heat intolerance. No polyuria or polydipsia. ALLERGIES: + history of rhinitis. Vital Signs Vital Signs Vital Signs: 03/08/22 13:08 03/08/22 13:10 03/08/22 13:40 Temperature 97.5 F L 97.6 F L Temperature Source Temporal Temporal Pulse Rate 95 112 H Respiratory Rate 26 H 33 H Respiratory Effort Short of Breath Blood Pressure 122/79 H 122/79 H Blood Pressure Mean 93 93 Pulse Ox 99 99 Oxygen Delivery Method Nasal Cannula Nasal Cannula Nasal Cannula Oxygen Flow Rate (L/min) 2 2 2 Weight Weight: 85 lb Body Mass Index (BMI) 13.7 Physical Exam Narrative Physical Examination: General: Awake, alert, oriented x 3 and cooperative, seated upright in the ED bed, fatigued, increased work of breathing and accessory muscle usage has been lessening, notes feeling less dyspneic than initial evaluation. Skin: Normal color, normal turgor, no icterus, no cyanosis. HEENT: AT/NC, EOMI, PERRLA, mildly dry MM, no carotid bruits or JVD noted. Lungs: Diminished diffusely, very tight, occasional very soft end expiratory wheeze, mild increased work of breathing and some accessory usage but lessening since initial ED evaluation, no rales or rhonchi. Heart: Irregular, currently rate controlled; no gallop, rub audible. Abdomen: Soft, thin cachectic habitus, NTTP, ND, distant normal BS, no HSM. Extremities: No cyanosis, clubbing, or edema. Neurological: Patient awake, alert, oriented as noted, cognitive function intact; pupils equally reactive to light and accommodation, cranial nerves II- XII grossly normal, moving all 4 extremities, no focal deficits, strength moderately to severely global decrease secondary to acute presentation. Psychiatric: Affect appears fatigued, work of breathing has been improving no acute evidence of depressive or anxiety feelings. Results Lab / Micro Data Result Diagrams: 03/08/22 13:35 03/08/22 13:35 Labs: Laboratory Results - last 24 hr 03/08/22 13:35: WBC 7.7, RBC 3.17 L, Hgb 9.6 L, Hct 31.5 L, MCV 99.4 H D, MCH 30.3, MCHC 30.5 L D, RDW Std Deviation 54.9 H, RDW Coeff of Oly 14.9 H, Plt Count 130 L, MPV 10.4, Immature Gran % (Auto) 0.400, Neut % (Auto) 92.2 H, Lymph % (Auto) 5.0 L, [place] % (Auto) 2.3, Eos % (Auto) 0.0, Baso % (Auto) 0.1, Absolute Neuts (auto) 7.1, Absolute Lymphs (auto) 0.38 L, Nucleated RBC % 0, Differential Comment COMMENT 03/08/22 13:35: PT 22.2 H, INR 2.0 03/08/22 13:35: Sodium 140, Potassium 3.8, Chloride 104, Carbon Dioxide 27.0, Anion Gap 9, BUN 30 H, Creatinine 1.37 H, Estim Creat Clear Calc 19.93, Est GFR (MDRD) Af Amer 48 L, Est GFR (MDRD) Non-Af 39 L, BUN/Creatinine Ratio 21.9 H, Glucose 236 H, Calcium 8.0 L, Total Bilirubin 0.40, AST 32, ALT 40, Alkaline Phosphatase 70, Troponin I High Sens 152 H*, Total Protein 5.5 L, Albumin 2.6 L, Globulin 2.9, Albumin/Globulin Ratio 0.9 03/08/22 13:35: Lactic Acid 1.7 Radiology Impression Chest X-Ray 03/08/22 13:45 IMPRESSION: Progressive pleural parenchymal changes at the left lung base. The remainder of the examination is unchanged. Electronically Signed: Yahir Healy MD at 14:01 EDT , Assessment & Plan Assessment/Plan (1) Non-ST elevated myocardial infarction (non-STEMI): (2) Acute exacerbation of chronic obstructive pulmonary disease: (3) Acute and chronic respiratory failure with hypercapnia: PLAN: The patient is an 81 y/o F w/ PMHx: Chronic anemia/AOCD, COPD, Former tobacco use, HTN, HLD, CKD stage IV, Chronic Systolic CHF, Diabetes mellitus type II, GERD, PAF on coumadin, Severe protein calorie malnutrition, Hx DVT/PE on coumadin, Ongoing outpatient evaluation for L lung lesions, recent discharged 5/4/22 following evaluation for acute hypoxic respiratory failure in the setting of acute CHF exacerbation with a left-sided pleural effusion admission w/ w/u notable for multivessel disease and EF 10-15% transferred to [facility] for possible intervention with decision for medical management only who now re-presents to the [facility] ED on 03/08/22 with history of significantly worsened shortness of breath on day of presentation, increased work of breathing accessory muscle usage with no improvement with aerosols at home and chronic cough unchanged with no fevers or chills nor any increased swelling or worsened orthopnea. #1. Acute Hypoxia Respiratory Failure, suspect possibly Multifactorial, including Acute on chronic COPD exacerbation, possible worsened VTE/PE given low range INR with Hx, Underlying LLL lesion w/ ongoing malignancy evaluation: Will admit to PCU, maintain on oxygen with wean as tolerated to room air, continue ATC budesonide given notable tachycardia onset following aerosols, PRN albuterol, IV methylprednisolone, HOB, IS parameters, pending sputum cultures as well as respiratory panel and procalcitonin to be cautious. CTPA pending upon evaluation with additional interventions as noted. #2. Indeterminate cardiac enzymes, suspected demand, type II NSTEMI associate with #1: EKG in ED atrial fibrillation with rate 90s, nonspecific changes with no acute evidence of ischemia, CTPA pending upon evaluation, initial troponin 152,most recent admission with troponin series in the 90s with last 02/17/22 trop 96, repeat delta pending, will place on a monitored bed, continue to obtain serial cardiac enzymes and EKGs. Mag requested. Continue asa, coumadin with INR trending and bridge as noted. NG, morphine. May consider repeat Cardiology evaluation; however, recent catheterization/ECHO/[facility] as well as CT surgery evaluation with decision for medical management only as noted in addition to concern primarily #1 etiology for elevated enzymes. #3. CAD: Recent cardiac catheterization 02/19/2022 with multivessel disease with transition to [facility] 02/24/2022 for possible CABG versus PCI LCx and LAD versus medical therapy, started at their facility on baby aspirin, statin which patient did not tolerate and discontinued as well as low-dose beta-radha discharged on 02/27/2022, as noted will continue to cycle cardiac enzymes, suspect bumped likely secondary to acute presentation number 1 with demand. #4. History DVT/PE on Coumadin: Admission INR 2.0, recently discontinued Lovenox bridging, given low end of the range desired will continue therapeutic Lovenox bridge until INR trending upward, will dose with additional dose of Coumadin this evening and continue to trend. CTPA pending upon evaluation as certainly could have worsened PE as etiology for dyspnea. #5. Chronic systolic CHF: 02/18/2022 echocardiogram with EF 15 to 20%, severe global LV hypokinesis, inferior basal aneurysmal, mild MR and mild TR, significant change from 03/2020 echocardiogram, recent admission as noted with exacerbation, transition to [facility] as noted, will continue aspirin, low-dose Coreg, patient discontinued statin therapy secondary to intolerance, not on any diuretic therapy, will defer any aggressive hydration, monitor I's and O's and daily weights. #6. LLL Lung Lesion, Suspected Malignant: Following w/ [facility] with pulmonary, had planned PET 03/08/22 at [place], recommended this be re-scheduled, CTPA pending upon evaluation as noted, if subtherapeutic INR with 1 day off of the bridge certainly high risk for VTE, continue evaluation as noted. #7. PAF: Rate controlled, continue low dose coreg, continue coumadin with bridge as well as additional dose as noted w/ repeat INR in AM. #8. Diabetes mellitus type II with hyperglycemia: Currently from list not on any regimen, hemoglobin A1c has been requested, will allow ADA diet, accu checks w/ ISS. #9. Chronic anemia/AOCD: Previously normocytic, MCV mildly elevated today 99.4, admission hemoglobin 9.6, baseline appears 9-10, stable, trend. Given underlying current ongoing cancer evaluation certainly contributing. #10. Chronic Kidney Disease Stage IV: Admission BUN/Cr 30/1.37, baseline renal function 1.4-1.9 primarily from recent, repeat BMP in AM. #11. Severe Protein-Calorie Malnutrition: Evidenced by reduced BMI, notable muscle and fat loss, nutrition consulted. #12. Former tobacco use: Quit 1 month prior, smoked prior 1.5 ppd since youth. #13. DVT prophylaxis: SCDs, continue coumadin w/ additional dose, overlap with therapeutic lovenox w/ repeat INR in am, de-escalate off lovenox if trending upward, as noted CTPA pending upon evaluation. #14. CODE status: Patient HCPRON is her daugther who is present and living will is not in place. Recommended discussions with social work/case management for assistance in setting living will up. Discussed CODE status at length including difference between FULL code, DNR-CCA and DNR-CC status. Following discussions about the differences in these status, requested Full Code status despite discussions about prognosis given significant comorbidities. Advanced Care Planning Face to Face Time: 16 minutes. Charges/Coding Visit Charges Inpatient E&M: 19853 Init Hosp L3 Procedures Hospitalists Procedures: 77619 Advncd Care Plan 30 Min
--- NOTE | 2022-03-08 15:05 | CT_ITS ---
EXAM: CT ANGIOGRAPHY CHEST WITHOUT AND WITH INTRAVENOUS CONTRAST CLINICAL INDICATION: Hi suspicion pulmonary embolus TECHNIQUE: Helically acquired angiography images were obtained of the chest without and with intravenous contrast. This CT exam was performed using one or more of the following dose reduction techniques: automated exposure control, adjustment of the mA and/or kV according to patient size, and/or use of iterative reconstruction technique. This report was created using [employer] report generation technology. MIP reconstructed images were created and reviewed. CONTRAST: IV 75mL Isovue-370 RADIATION DOSE: CTDIvol = 6.86 mGy, DLP = 250.46 mGy-cm COMPARISON: 02/12/2022 FINDINGS: PULMONARY ARTERIES: No demonstrated pulmonary embolism or arterial dissection. AORTA: There is atherosclerotic calcification of the aortic arch with tortuosity and elongation of the aortic arch and descending thoracic aorta. Normal in caliber. No evidence of dissection. GREAT VESSELS OF AORTIC ARCH: Unremarkable. Normal in caliber. No evidence of dissection. LUNGS AND PLEURAL SPACES: There is a masslike infiltrate in the left lower lobe measuring 41 x 24 mm. This may be a pneumonia. Follow up studies advised. Neoplasm cannot be excluded. The mass is unchanged since January 2022. Right lower lobe infiltrates are seen. The largest lesion appears cavitary and is noted in the superior segment of the right lower lobe measuring 20 mm. This is likely a cavitary pneumonia. Small right and large left pleural effusion. This is stable. There are scattered blebs and bullae. This can be seen in pulmonary emphysema. HEART: There are calcifications of the coronary arteries. No pericardial effusion. No signs of right heart strain, ratio of right ventricle to left ventricle measures less than 1. MEDIASTINUM: Prominent mediastinal lymph nodes. Esophagus is unremarkable. No hiatal hernia. THYROID: Unremarkable. No thyroid lesions. BONES/JOINTS: There are degenerative changes of the shoulders. There are multi-level degenerative changes of the thoracic spine. No suspicious lytic or blastic abnormality. KIDNEYS AND URETERS: Atrophic left kidney. OTHER FINDINGS: Scattered calcified granulomas. CT/CTA Chest W/WO Contrast IMPRESSION: 1. No demonstrated pulmonary embolism or arterial dissection. 2. There is a masslike infiltrate in the left lower lobe measuring 41 x 24 mm. This may be a pneumonia. Follow up studies advised. Neoplasm cannot be excluded. The mass is unchanged since January 2022. Right lower lobe infiltrates are seen. The largest lesion appears cavitary and is noted in the superior segment of the right lower lobe measuring 20 mm. This is likely a cavitary pneumonia. 3. Small right and large left pleural effusion. This is stable. Electronically Signed: Danny Puente MD at 17:16 EDT ,
[2022-03-08 15:42] LABS: Reflex Troponin-HS? (from REC) Y
--- NOTE | 2022-03-08 15:44 | NURSING ---
PCU WHITE NSTEMI, COPD, ACUTE ON CHRONIC RESP FAILURE
[2022-03-08] MEDS: MethylPREDNISolone 125 MG/2 ML Vial IV (15:57)
--- NOTE | 2022-03-08 16:22 | CPS ---
Patient started on DuoNeb Treatment and after about 3 minutes her HR went up to 120, Treatment stopped. notified, and notified
[2022-03-08 16:32] LABS: Magnesium 1.4 mg/dL (1.6-2.6)
[2022-03-08 17:08] LABS: Troponin-I HS 323 pg/mL (3.0-54.0)
[2022-03-08] MEDS: Ipratropium/Albuterol Sulfate 3 ML AMPUL.NEB INHALATION (17:12)
[2022-03-08 17:53] LABS: Procalcitonin 0.25 ng/mL (0.00-0.09)
[2022-03-08 18:21] LABS: Bedside Glucose 211 mg/dL (74-106)
[2022-03-08] MEDS: Insulin Lispro 100 UNIT/ML INSULN.PEN SC ×2 (18:33→21:52)
[2022-03-08] MEDS: Budesonide Respules 0.5 MG/2 ML AMPUL.NEB. INHALATION (19:43)
--- NOTE | 2022-03-08 20:00 | NURSING ---
Dave contacted in regards to IV access. Patient has 22 in right hand with double non compliant antibiotics ordered. access specialist to place IV since other IV attempts unsuccessful.
[2022-03-08 20:31] LABS: Troponin-I HS 296 pg/mL (3.0-54.0)
--- NOTE | 2022-03-08 20:32 | NURSING ---
Pts primary rn aware of troponin value of 296 at this time.
--- NOTE | 2022-03-08 20:40 | NURSING ---
Lcuho notified of Troponin level at 296 down from 323
[2022-03-08 20:46] LABS: M R Staph aureus DNA By PCR Negative (Negative); Probe Check PASS; Specimen Processing Control PASS
[2022-03-08] MEDS: Vancomycin IV 500 MG/100 ML BAG 100 MG IV (21:38)
[2022-03-08] MEDS: Atorvastatin Calcium 40 MG Tablet PO (22:02)
[2022-03-08] MEDS: Carvedilol 3.125 MG TABLET PO (22:02)
--- NOTE | 2022-03-08 22:44 | PCM.RX.CS ---
Consult Pharmacy has been consulted to manage selected antiobiotic: Vancomycin Type of Consult: New start Prior Doses of Antibiotics Received/Current Regimen: Medications Vancomycin HCl () 500 mg in 100 mls @ 100 mls/hr IV Q24H BRYAN Discontinued Medications Vancomycin HCl () 500 mg in 100 mls @ 100 mls/hr IV X1 ONE Stop: 03/08/22 19:59 Last Admin: 03/08/22 21:38 Dose: 100 mls/hr Documented by: Labs: Sodium 140 mmol/L (136-145) 03/08/22 13:35 Potassium 3.8 mmol/L (3.5-5.1) 03/08/22 13:35 Chloride 104 mmol/L (98-107) 03/08/22 13:35 Carbon Dioxide 27.0 mmol/L (21.0-32.0) 03/08/22 13:35 Anion Gap 9 (5-15) 03/08/22 13:35 BUN 30 mg/dL (7-18) H 03/08/22 13:35 Creatinine 1.37 mg/dL (0.55-1.02) H 03/08/22 13:35 Est GFR (MDRD) Af Amer 48 mL/min (>60) L 03/08/22 13:35 Est GFR (MDRD) Non-Af 39 mL/min (>60) L 03/08/22 13:35 BUN/Creatinine Ratio 21.9 RATIO (10-20) H 03/08/22 13:35 Glucose 236 mg/dL (74-106) H 03/08/22 13:35 Microbiology: Microbiology 03/08/22 16:51 Mucosa - Nose Respiratory Panel (PCR) - Final Weight used for dosin kg Estimated Creatinine Clearance: 21 Goal Trough: 15-20 mcg/mL Pharmacy Plan for Drug Dosing: Pharmacy Service will continue to monitor and adjust dosing as required. Follow-Up Labs: Trough Vancomycin Labs to be done on [date and time ordered]: 03/10/22 @2100
[2022-03-09] VITALS (12 sets, daily range): BP systolic 95–141; BP diastolic 61–82; PULSE 77–146; RESP 16–22; TEMP 36.4–36.6; O2SAT 96–100
[2022-03-09] MEDS: Zolpidem Tartrate 5 MG Tablet PO
--- NOTE | 2022-03-09 | SPU_PTH ---
PATIENT: ELIS SCRUGGS LOC: [facility] U#:[id number] AGE/SX: 81/F ROOM: [facility] RE03/08/[address]: Dr. Michelle Root MD : 1940 BED: 1 DIS: 03/13/2022 SPEC #: [id number] RECD: 03/10/22 12:49 STATUS: AMAURY ARELLANO #: [id number] STANLEY: 03/09/22 00:[address]: Michelle oRot DEPT: CYTOLOGY RECD BY: Ryder Tolbert ENTERED: 03/10/22 12:50 SP TYPE: Sputum Cy OTHR DR: MD Dr. Baltazar Magallon MD Dr. Derek Brown, DO Dr. Yudith Rosales, MD Dr. J Carlos Corona Dr., MD Christina Muller, CRM MARKETING SPECIALIST-C Tissues: Sputum Procedures: Pap Stain (control) Special Stain Group II Special Stain Group I AFB Stain (control) Cytospin Fluid HEADER OPERATION: Not noted PRE-OP DIAGNOSIS: COPD exacerbation TISSUE SUBMITTED: Sputum #2 for cytology at 1724 DIAGNOSIS CYTOLOGY Sputum #2 for cytology (smears): Negative for malignant cells. Fungal budding forms and hyphae consistent with Steffany species. Negative for acid fast bacilli. AM:shady 03/10/2022 COMMENT AFB stain with matched control was used in the evaluation of this case. CYTOLOGY STUDY Slides are reviewed. CYTOLOGY GROSS Received is <0.25 ml of clear fluid labeled with the patient's name and and designated per the requisition as sputum #2. Submitted for cytology preparation. / shady 03/10/2022 TC:5 CPT: 52420, 10179
--- NOTE | 2022-03-09 | SPU_PTH ---
PATIENT: ELIS SCRUGGS LOC: [facility] U#:[id number] AGE/SX: 81/F ROOM: [facility] RE03/08/[address]: Dr. Michelle Root MD : 1940 BED: 1 DIS: 03/13/2022 SPEC #: [id number] RECD: 03/10/22 12:49 STATUS: AMAURY ARELLANO #: [id number] STANLEY: 03/09/22 00:[address]: Michelle Root DEPT: CYTOLOGY RECD BY: Ryder Tolbert ENTERED: 03/10/22 12:49 SP TYPE: Sputum Cy OTHR DR: MD Dr. Baltazar Magallon MD Dr. Derek Brown, DO Dr. Yudith Rosales, MD Dr. J Carlos Corona Dr., MD Christina Muller, REAL ESTATE AGENT-C Tissues: Sputum Procedures: Pap Stain (control) Special Stain Group II Special Stain Group I AFB Stain (control) Cytospin Fluid HEADER OPERATION: Not noted PRE-OP DIAGNOSIS: COPD exacerbation TISSUE SUBMITTED: Sputum #1 for cytology at 1305 DIAGNOSIS CYTOLOGY Sputum #1 for cytology (smears): Negative for malignant cells. Occasional fungal organisms consistent with Steffany. Negative for acid fast bacilli. AM:shady 03/10/2022 COMMENT AFB stain with matched control was used in the evaluation of this case. CYTOLOGY STUDY Slides are reviewed. CYTOLOGY GROSS Received is 1 ml of pink cloudy fluid labeled with the patient's name and and designated per the requisition as sputum #1. Submitted for cytology preparation. / shady 03/10/2022 TC:5 CPT: 80240, 90299
--- NOTE | 2022-03-09 | SPU_PTH ---
PATIENT: ELIS SCRUGGS LOC: [facility] U#:[id number] AGE/SX: 81/F ROOM: [facility] RE03/08/[address]: Dr. Michelle Root MD : 1940 BED: 1 DIS: 03/13/2022 SPEC #: [id number] RECD: 03/10/22 12:52 STATUS: AMAURY RECoby #: [id number] STANLEY: 03/09/22 00:[address]: Michelle Root DEPT: CYTOLOGY RECD BY: Ryder Tolbert ENTERED: 03/10/22 12:53 SP TYPE: Sputum Cy OTHR DR: MD Dr. Baltazra Magallon MD Dr. Derek Brown, DO Dr. Yudith Rosales, MD Dr. J Carlos Corona Dr., MD Christina Muller, BURLAP ROLL COVERER-C Tissues: Sputum Procedures: Pap Stain (control) Special Stain Group II Special Stain Group I AFB Stain (control) Cytospin Fluid HEADER OPERATION: Not noted PRE-OP DIAGNOSIS: COPD exacerbation TISSUE SUBMITTED: Sputum #3 for cytology at 2200 DIAGNOSIS CYTOLOGY Sputum #3 for cytology (smears): Negative for malignant cells. Abundant fungal organisms consistent with Steffany species. Negative for acid fast bacilli. AM:shady 03/10/2022 COMMENT AFB stain with matched control was used in the evaluation of this case. CYTOLOGY STUDY Slides are reviewed. CYTOLOGY GROSS Received is <0.5 ml of clear fluid labeled with the patient's name and and designated per the requisition as sputum #3. Submitted for cytology preparation. / shady 03/10/2022 TC:5 CPT: 21573
[2022-03-09 00:36] LABS: Bedside Glucose 398 mg/dL (74-106)
[2022-03-09 06:30] LABS: Absolute Lymphocyte Count 0.33 X10^3/uL (0.83-4.51); Hematocrit 28.6 % (37-47); Hemoglobin 8.9 g/dL (12.0-15.0); Lymphocyte # 0.33 X10^3/ul (0.83-4.51); Lymphocyte % 3.8 % (19-41); Mean Corp Hgb Conc 31.1 g/dL (32-36); Mean Corpuscular Volume 96.3 fL (81-99); Mean Platelet Vol. 10.1 fl (6.2-12.0); Monocyte# 0.27 X10^3/uL; Monocyte% 3.1 % (0-10); NRBC Flagged by Analyzer 0 % (0-5); Neutrophil # 7.99 X10^3/uL (2.7-7.7); Neutrophil % 92.8 % (47-70); POSITIVE DIFFERENTIAL YES; Platelet Count 110 K/mm3 (150-450); RBC Distribution Width CV 14.9 % (11.6-14.6); RBC Distribution Width SD 52.1 fl (35.1-43.9); Red Blood Count 2.97 M/mm3 (4.2-5.4); White Blood Count 8.6 K/mm3 (4.4-11.0)
[2022-03-09] MEDS: Budesonide Respules 0.5 MG/2 ML AMPUL.NEB. INHALATION ×2 (06:35→19:24)
[2022-03-09 06:36] LABS: Differential Indicated SCAN CRITERIA MET
[2022-03-09] MEDS: Insulin Lispro 100 UNIT/ML INSULN.PEN SC ×4 (06:53→22:09)
[2022-03-09 06:56] LABS: ALB/GLOB Ratio 0.8 RATIO (0.9-2.4); AST(SGOT) 17 U/L (15-37); Alanine Aminotransfer ALT/SGPT 34 U/L (13-56); Albumin, Serum 2.3 g/dL (3.2-5.0); Alkaline Phosphatase 61 U/L (45-117); Anion Gap 8 (5-15); BUN 32 mg/dL (7-18); BUN/Creat Ratio 25.8 RATIO (10-20); Chloride 105 mmol/L (98-107); Creatinine, Serum 1.24 mg/dL (0.55-1.02); EST Glomerular Filtration Rate 44 mL/min (>60); Est Glom Filt Rate - Afr Amer 53 mL/min (>60); Estimated Creatinine Clearance 22.44 ml/min; Globulin 2.8 g/dL (2.2-4.2); Glucose 280 mg/dL (74-106); Magnesium 2.3 mg/dL (1.6-2.6); Potassium 3.8 mmol/L (3.5-5.1); Protein, Total 5.1 g/dL (6.4-8.2); Sodium Level 138 mmol/L (136-145)
[2022-03-09 07:00] LABS: Bedside Glucose 254 mg/dL (74-106)
[2022-03-09 07:11] LABS: Anisocytosis 1+
[2022-03-09 07:47] LABS: Hemoglobin A1c 7.2 % (3.8-5.6)
--- NOTE | 2022-03-09 08:13 | PCM.CONS.C ---
Assessment & Plan Assessment/Plan (1) Non-ST elevated myocardial infarction (non-STEMI): PLAN: The patient has abnormal cardiac enzymes. She has recently undergone extensive noninvasive and invasive cardiovascular evaluation locally as well as advanced cardiovascular evaluation at [facility]. Based upon her overall status her cardiac enzymes appear compatible with a type II non-STEMI thought secondary to acute exacerbation of her underlying pulmonary disease process. From a cardiac standpoint she will continue medical management as best as possible as she has been deemed not a candidate for revascularization either percutaneously or surgically at the [facility]. (2) Atherosclerosis of coronary artery of [place] heart without angina pectoris: PLAN: She does have extensive CAD as noted. At the moment she will continue to be monitored. She will continue conservative medical management. (3) Cardiomyopathy: QUALIFIERS: Cardiomyopathy type: ischemic Qualified Code(s): I25.5 - Ischemic cardiomyopathy PLAN: She does have an underlying significant cardiomyopathy which is thought related to her underlying CAD status thus being ischemic. As she is not a candidate for revascularization she will continue conservative medical management. This will include agents such as nitrates as needed, beta-blockers with adjustment/advancement of dose as tolerated, diuretics as needed, afterload reducing agents, and other medications as deemed appropriate and tolerated. (4) CHF (congestive heart failure): PLAN: She does have underlying chronic systolic mediated CHF. She will need to continue medical therapy. This may include a combination of agents noted above with adjustment as needed. (5) Atrial fibrillation: PLAN: At the moment she appears to be in sinus rhythm. She will continue rate control therapy as deemed appropriate. She is also been placed on anticoagulant therapy with warfarin/Coumadin. Depending upon her future noncardiac evaluation, if she were in need of underlying additional pulmonary studies such as biopsy, etc., this may need to be temporarily interrupted. (6) HLD (hyperlipidemia): PLAN: She will continue her lipid-lowering therapy. (7) Benign essential HTN: PLAN: Her blood pressure will be monitored. She will continue medical therapy. (8) Acute exacerbation of chronic obstructive pulmonary disease: PLAN: She does have the appearance of an underlying acute on chronic obstructive COPD type of event. There is concerns of radiologic studies suggesting pneumonia as well as possible neoplasm. She will need continued valuation care per internal medicine with consideration to pulmonology consultation. Addt'l Comments The above was discussed with her. She was agreeable to this approach. This note was generated using a voice recognition system and there may be incorrect words, spelling or punctuation that were not noted when reviewing the office note prior to saving. HPI Consult Data Date of Consult: 03/09/22 HPI Narrative HPI Narrative: EILS SCRUGGS, is a 81 white female who presents for cardiovascular cons Tatian based upon concerns of abnormal cardiac enzymes, CAD (deemed not a revascularization candidate by [facility] either by PCI or CABG), ischemic mediated cardiomyopathy, chronic systolic CHF, paroxysmal atrial fibrillation, hyperlipidemia, hypertension, renal insufficiency, and underlying pulmonary disease with concerns of pneumonia and now possible malignancy. She was recently evaluated at [facility] with noninvasive and invasive studies. She was subsidy transferred to [facility] for further advanced cardiovascular evaluation and care. According to the patient she was deemed too high risk for any form of coronary artery revascularization therapy and thus she was recommended for conservative medical management and subsequent outpatient cardiovascular follow-up including outpatient pulmonology follow-up based upon concerns of underlying abnormal pulmonary studies suggesting the possibility of an underlying pulmonary malignancy. She states that yesterday her breathing became worse again where she felt more short of breath and dyspneic with activity. She denied ongoing chest discomfort apart from the sensation of her shortness of breath and dyspnea. There has been no acute orthopnea or PND. She states that she notices some waxing and waning edema of her left ankle area. There is been no near-syncope or syncope. She presented to the hospital for further evaluation. There were concerns of cardiopulmonary involvement. She underwent cardiac enzymes which of increased from yesterday of a high-sensitivity troponin I level 152 to a level of 323 down to the level of 296. Her ECG appeared to demonstrate sinus rhythm with PACs with possible LVH and nonspecific ST and T wave abnormality. She underwent radiologic studies of the chest with chest CTA suggesting no great vessel disease or thromboembolic disease/pulmonary embolism. There was concern of a masslike infiltrate in the left lower lobe reportedly measuring 41 mm x 24 mm potentially compatible with pneumonia although neoplasm could not be excluded. This was reported as similar to previous study in January 2022. There was also comment of right lower lobe infiltrates. The largest lesion was cavitary and in the superior segment of the right lower lobe measuring 20 mm. This was reported as likely a cavitary pneumonia. There was also small right and large left pleural effusions which were reported as stable. He was subsequently placed in the PCU for further evaluation and care including IV antibiotic therapy. [facility] Medical History (Updated 03/09/22 @ 08:[address] Luis Prescott MD) Anemia Atherosclerosis of coronary artery of [place] heart without angina pectoris Atrial fibrillation Benign essential HTN Celiac disease CHF (congestive heart failure) Chronic anticoagulation Chronic kidney disease Chronic renal failure, stage 5 COLD (chronic obstructive lung disease) COPD (chronic obstructive pulmonary disease) Diabetes mellitus Family history of lung cancer FCHL (familial combined hyperlipidemia) Gastroesophageal reflux disease History of DVT (deep vein thrombosis) HLD (hyperlipidemia) Multiple excoriations Neoplasm of uncertain behavior of skin Pneumonia Pulmonary cachexia due to chronic obstructive pulmonary disease Solitary pulmonary nodule 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 Stage 1 mild COPD by GOLD classification Superficial thrombophlebitis of right leg Tobacco abuse Home Medications omeprazole 20 mg PO DAILY 12/30/14 [History Last Taken 03/08/22] albuterol sulfate 2 puff INHALATION Q4H PRN PRN #2 inhaler 04/14/20 [Rx Last Taken 03/08/22] tiotropium bromide 2.5 mcg/actuation mist for inhalation 1 puff INHALATION DAILY #4 g 07/29/20 [Rx Last Taken 03/08/22] aspirin [Aspirin Low-Strength] 81 mg PO DAILY 03/08/22 [History Last Taken 03/08/22] atorvastatin 40 mg PO QHS 03/08/22 [History Last Taken 03/07/22] carvedilol 3.125 mg PO BID 03/08/22 [History Last Taken 03/08/22] enoxaparin 40 mg SUBCUT DAILY 03/08/22 [History Last Taken 03/06/22] mometasone-formoterol [Dulera] 2 inh INHALATION BID 03/08/22 [History Last Taken 03/08/22] warfarin 2 mg PO MOWETHFR 03/08/22 [History Last Taken 03/08/22] warfarin 4 mg PO SUTUSA 03/08/22 [History Last Taken 03/07/22] Allergy/AdvReac Type Severity Reaction Status Date / Time diltiazem HCl [From Cardizem] Allergy Angioedema Verified 03/08/22 13:12 fluticasone furoate Allergy PT UNSURE Verified 03/08/22 13:12 [From Breo Ellipta] OF REACTION gatifloxacin [From Tequin] Allergy Unknown Verified 03/08/22 13:12 hydrochlorothiazide Allergy Other Verified 03/08/22 13:12 [From Maxzide] Penicillins [PCN] Allergy Hives Verified 03/08/22 13:12 triamterene [From Maxzide] Allergy Other Verified 03/08/22 13:12 vilanterol Allergy PT UNSURE Verified 03/08/22 13:12 [From Breo Ellipta] OF REACTION codeine AdvReac Upset Verified 03/08/22 13:12 Stomach Family History Father Diabetes Lung cancer Mother Heart disease Hypertension Surgical History History of appendectomy History of hysterectomy History of left heart catheterization (02/19/22) History of skin graft Status post insertion of dialysis catheter Social History (Updated 03/08/22 @ 16:[address] Oumou Alaniz MD) household members: none Smoking Status: Former smoker how long ago did patient quit smoking: Quit ~ 1 month prior, smoked 1.5 ppd since youth until quit. second hand exposure: Yes alcohol intake: never substance use type: does not use caffeine: Yes what type of physical activity do you participate in: none ROS Constitutional Constitutional: Reports as per HPI Eyes Eyes: Reports as per HPI ENT HEENT: Reports as per HPI Cardiovascular Cardiovascular: Reports dyspnea on exertion and edema Respiratory/Chest Respiratory/Chest: Reports dyspnea on exertion Gastrointestinal Gastrointestinal: Reports as per HPI Genitourinary Genitourinary: Reports as per HPI Musculoskeletal Musculoskeletal: Reports as per HPI Integumentary Integumentary: Reports as per HPI Neurologic Neurologic: Reports as per HPI Psychiatric Psychiatric: Reports as per HPI Physical Exam Narrative This is an thin frail and cachectic appearing 81-year-old white female. Const alert and oriented x3 Orientation / Consciousness: awake HEENT normocephalic and head/scalp atraumatic Eyes PERRL, EOMs intact bilaterally and conjunctivae normal Neck full ROM, supple and no JVD Resp Auscultation: rhonchi throughout and diminished lung sounds bilateral lower (Left greater than right) Cardio regular rhythm, S1 normal heart sound and S2 normal heart sound Rhythm: abnormal rhythm ectopic beats GI normal to inspection, nondistended, normoactive bowel sounds Extremity no pedal edema Skin no rashes or lesions noted Neuro oriented x3, moves all extremities, no focal motor deficits and no sensory deficits noted Psych mental status grossly normal Risk Stratification Risk Stratification Applicable: Yes Age >/= 65: Yes >/= 3 CAD Risk Factors (HTN, HLD, DM, family hx of CAD, or current smoker): Yes Aspirin Use in the Past 7 Days: Yes Severe Angina (>/= episodes in 24 hours): No EKG ST Changes >/= 0.5mm: Yes Positive Cardiac Marker: Yes AMPARO Risk Stratification Score: 5 AMPARO % Risk: 25% Risk Procedure Criteria Type of Procedure Procedure Type: Elective Elective Risks - COVID COVID Risk Discussion: The surgeon/proceduralist and patient have discussed in detail the risk of exposure to and/or potential harm posed by the COVID-19 virus with having a surgery/procedure at this time versus the risk of delaying the surgery/procedure. It is not possible to know either the risk of delaying the surgery or procedure or chance of getting an infection with perfect accuracy, but a joint decision was made between the patient and the surgeon/proceduralist to proceed at this time with the scheduled surgery/procedure as indicated on the consent form. Objective Data Vital Signs: Vital Signs Temp Pulse Resp BP Pulse Ox 97.6 F L 83 20 H 141/81 H 96 03/09/22 03:10 03/09/22 07:47 03/09/22 06:35 03/09/22 03:10 03/09/22 06:35 Oxygen Flow Rate (L/min) 2 Oxygen Delivery Method Room Air Weight: 92 lb 9.506 oz Body Mass Index (BMI) 13.9 Intake & Output: Intake and Output for Last 24 Hours 03/07/22 03/08/22 03/09/22 23:59 23:59 23:59 Intake Total 304 / 304 Balance 304 / 304 Lab / Micro Data Result Diagrams: 03/09/22 06:00 03/09/22 06:00 Labs: Laboratory Results - last 24 hr 03/08/22 13:35: WBC 7.7, RBC 3.17 L, Hgb 9.6 L, Hct 31.5 L, MCV 99.4 H D, MCH 30.3, MCHC 30.5 L D, RDW Std Deviation 54.9 H, RDW Coeff of Oly 14.9 H, Plt Count 130 L, MPV 10.4, Immature Gran % (Auto) 0.400, Neut % (Auto) 92.2 H, Lymph % (Auto) 5.0 L, [place] % (Auto) 2.3, Eos % (Auto) 0.0, Baso % (Auto) 0.1, Absolute Neuts (auto) 7.1, Absolute Lymphs (auto) 0.38 L, Nucleated RBC % 0, Differential Comment COMMENT 03/08/22 13:35: PT 22.2 H, INR 2.0 03/08/22 13:35: Sodium 140, Potassium 3.8, Chloride 104, Carbon Dioxide 27.0, Anion Gap 9, BUN 30 H, Creatinine 1.37 H, Estim Creat Clear Calc 19.93, Est GFR (MDRD) Af Amer 48 L, Est GFR (MDRD) Non-Af 39 L, BUN/Creatinine Ratio 21.9 H, Glucose 236 H, Calcium 8.0 L, Total Bilirubin 0.40, AST 32, ALT 40, Alkaline Phosphatase 70, Troponin I High Sens 152 H*, Total Protein 5.5 L, Albumin 2.6 L, Globulin 2.9, Albumin/Globulin Ratio 0.9 03/08/22 13:35: Lactic Acid 1.7 03/08/22 13:35: Magnesium 1.4 L 03/08/22 15:53: Troponin I High Sens 323 H* 03/08/22 16:51: Procalcitonin 0.25 H 03/08/22 18:09: POC Glucose 211 H 03/08/22 18:35: MRSA (PCR) Negative 03/08/22 19:55: Troponin I High Sens 296 H* 03/08/22 21:51: POC Glucose 398 H 03/09/22 06:00: WBC 8.6, RBC 2.97 L, Hgb 8.9 L, Hct 28.6 L, MCV 96.3, MCH 30.0, MCHC 31.1 L, RDW Std Deviation 52.1 H, RDW Coeff of Oly 14.9 H, Plt Count 110 L, MPV 10.1, Immature Gran % (Auto) 0.300, Neut % (Auto) 92.8 H, Lymph % (Auto) 3.8 L, Carl[place] % (Auto) 3.1, Eos % (Auto) 0.0, Baso % (Auto) 0.0, Absolute Neuts (auto) 8.0 H, Absolute Lymphs (auto) 0.33 L, Nucleated RBC % 0, Anisocytosis 1+ 03/09/22 06:00: PT Cancelled, INR Cancelled 03/09/22 06:00: Sodium 138, Potassium 3.8, Chloride 105, Carbon Dioxide 25.0, Anion Gap 8, BUN 32 H, Creatinine 1.24 H, Estim Creat Clear Calc 22.44, Est GFR (MDRD) Af Amer 53 L, Est GFR (MDRD) Non-Af 44 L, BUN/Creatinine Ratio 25.8 H, Glucose 280 H, Calcium 8.0 L, Magnesium 2.3, Total Bilirubin 0.30, AST 17, ALT 34, Alkaline Phosphatase 61, Total Protein 5.1 L, Albumin 2.3 L, Globulin 2.8, Albumin/Globulin Ratio 0.8 L 03/09/22 06:00: Hemoglobin A1c 7.2 H 03/09/22 06:52: POC Glucose 254 H Micro: Microbiology 03/08/22 16:51 Mucosa - Nose Respiratory Panel (PCR) - Final Cardiology Labs/Tests 03/08/22 13:35: WBC 7.7, RBC 3.17 L, Hgb 9.6 L, Hct 31.5 L, MCV 99.4 H D, MCH 30.3, MCHC 30.5 L D, Plt Count 130 L, MPV 10.4, Immature Gran % (Auto) 0.400, Neut % (Auto) 92.2 H, Lymph % (Auto) 5.0 L, Carl[place] % (Auto) 2.3, Eos % (Auto) 0.0, Baso % (Auto) 0.1, Absolute Neuts (auto) 7.1, Nucleated RBC % 0 03/08/22 13:35: PT 22.2 H, INR 2.0 03/08/22 13:35: Sodium 140, Potassium 3.8, Chloride 104, Carbon Dioxide 27.0, Anion Gap 9, BUN 30 H, Creatinine 1.37 H, Est GFR (MDRD) Af Amer 48 L, Est GFR (MDRD) Non-Af 39 L, BUN/Creatinine Ratio 21.9 H, Glucose 236 H, Calcium 8.0 L, Total Bilirubin 0.40 03/08/22 13:35: Lactic Acid 1.7 03/08/22 13:35: Magnesium 1.4 L 03/09/22 06:00: WBC 8.6, RBC 2.97 L, Hgb 8.9 L, Hct 28.6 L, MCV 96.3, MCH 30.0, MCHC 31.1 L, Plt Count 110 L, MPV 10.1, Immature Gran % (Auto) 0.300, Neut % (Auto) 92.8 H, Lymph % (Auto) 3.8 L, [place] % (Auto) 3.1, Eos % (Auto) 0.0, Baso % (Auto) 0.0, Absolute Neuts (auto) 8.0 H, Nucleated RBC % 0 03/09/22 06:00: PT Cancelled, INR Cancelled 03/09/22 06:00: Sodium 138, Potassium 3.8, Chloride 105, Carbon Dioxide 25.0, Anion Gap 8, BUN 32 H, Creatinine 1.24 H, Est GFR (MDRD) Af Amer 53 L, Est GFR (MDRD) Non-Af 44 L, BUN/Creatinine Ratio 25.8 H, Glucose 280 H, Calcium 8.0 L, Magnesium 2.3, Total Bilirubin 0.30 03/09/22 06:00: Hemoglobin A1c 7.2 H Rhythm: Sinus rhythm; PACs EKG: As noted above ECHO: 02-18-2022 Interpretation Summary The estimated ejection fraction is 15-20 %. Severe Global LV Hypokinesia Inferobasal aneurysmal Mild MR Mild TR significant change with worsening LV systolic function from Echo 04/12/2020 Cardiac Cath: 02-19-2022 CONCLUSIONS Multivessel CAD RECOMMENDATIONS CT surgery consult for possible CABG. PCI of LCx and LAD or Medical therapy alone are options to consider as well. DESCRIPTION OF PROCEDURE The patient arrived to the procedure lab. The risks and benefits of the procedure as well as a full description of our services here and current unavailability of surgical backup were fully explained to the patient and/or their significant other prior to the catheterization. The Timeout was completed, verifying the correct patient and procedure. The patient's procedural site was prepped and draped in the usual fashion. Local anesthetic was given subcutaneously to right radial region with Lidocaine 2%. Using a modified Seldinger technique, arterial access was obtained via the right radial artery, a 6Fr sheath was inserted. Left Coronary Artery selective angiography was performed in multiple views using a 5 Fr. JL3.5 catheter. Right Coronary Artery selective angiography was then performed in multiple views using a 5 Fr. JR 4 catheter. LV to AO pullback pressures were then recorded.The arterial sheath was pulled and a TR Band was applied for hemostasis CORONARY ANGIOGRAPHY DOMINANCE: Right Dominant LEFT HEART ASSESSMENT LVEDP: 21 mmHg LEFT MAIN: 25% ostial Stenosis LEFT ANTERIOR DESCENDING ARTERY: PROX LAD: 60 % Stenosis immediately distal to D1 and proximal to a large septal branch MID LAD: 80-85 % Stenosis CIRCUMFLEX ARTERY: PROX CIRC: 80-85 % Stenosis DISTAL CIRC: 80 % Stenosis RIGHT CORONARY ARTERY: PROX RCA: 100 % Stenosis L to R collaterals noted VALVE FINDINGS: No Aortic Valve Stenosis Radiography Diagnostic Testing: Radiology Impression Chest X-Ray 03/08/22 13:45 IMPRESSION: Progressive pleural parenchymal changes at the left lung base. The remainder of the examination is unchanged. Electronically Signed: Yahir Healy MD at 14:01 EDT , Chest CTA 03/08/22 15:05 IMPRESSION: 1. No demonstrated pulmonary embolism or arterial dissection. 2. There is a masslike infiltrate in the left lower lobe measuring 41 x 24 mm. This may be a pneumonia. Follow up studies advised. Neoplasm cannot be excluded. The mass is unchanged since January 2022. Right lower lobe infiltrates are seen. The largest lesion appears cavitary and is noted in the superior segment of the right lower lobe measuring 20 mm. This is likely a cavitary pneumonia. 3. Small right and large left pleural effusion. This is stable. Electronically Signed: Danny Puente MD at 17:16 EDT ,
[2022-03-09 08:54] LABS: International Normalized Ratio 2.3; Prothrombin Time (Protime)PT. 24.6 SECONDS (11.7-14.9)
[2022-03-09] MEDS: Carvedilol 3.125 MG TABLET PO ×3 (08:56→22:29)
[2022-03-09] MEDS: Pantoprazole Sodium 20 MG Tablet PO (08:56)
[2022-03-09] MEDS: Furosemide 20 MG/2 ML VIAL IV (08:56)
[2022-03-09] MEDS: Aspirin 81 MG TAB.CHEW PO (08:56)
[2022-03-09] MEDS: SACUBITRIL/VALSARTAN 24/26 MG TABLET 1 EACH PO (10:16)
--- NOTE | 2022-03-09 10:23 | CASEMGMT ---
Readmission chart review: 02/16-02/24/22 Pna, pleural effusion 03/08/22-current COPD exac, elev trop Pt presented to [facility] ED on 02/16/22 for increased SOB w/ exertion and lying flat-pt was told she had fluid and was set to see Dr. Cuello next morning but came to ED. Pt with thoracentesis on 02/17/22 on left for 600cc out, which came back transudative. Pt also with heart cath on 02/19/22 for elev troponins and was referred to [facility] for CT surgery c/s and pt waited 5 days for transfer and then was d/c'd from [facility], as she was deemed not a candidate for revascularization. Palliative did see pt on as well and tile sorter was consulted while pt was here. Pt with lung lesions that they are suspicious for cancer and had PET scan scheduled with [facility] for today, 03/09/22. See CM note from 02/17/22. Pt returned to [facility] ED on 03/08/22 for increased SOB again and was 98% on room air. Cardiology c/s and states med management d/t not candidate for revascularization either percutaneous or surgically. Stop Attacher has also been consulted again. Palliative aware of pt admission. CM to follow for any further discharge planning/needs. Pt is currently 100% on 2L nc. SStkori RN CM
--- NOTE | 2022-03-09 10:26 | CON.PCM.ID_ITS ---
Assessment & Plan Assessment/Plan (1) Acute respiratory failure with hypoxia: (2) Pneumonia: PLAN: New R sided lower lobe cavitary pneumonia seen on CT, not there in 01/2022 during recent admit. 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 No h/o treatment for TB. Does have weight loss, undergoing workup for suspected malignancy in L. Outpt PET was planned for today. Recent admit here then transfer to [facility]; will request records from that stay. MRSA pcr was neg. Will continue vanc/cefepime for now. Will consult pulm as she is known to Dr. Cuello. She reports covid vaccine x3. Will check sputum AFB, quantiferon. Will place in TB isolation while workup is pending. If bronch or thoracentesis is done, would send AFB. Will follow, thank you HPI Consult Data Date of Consult: 03/09/22 HPI Narrative HPI Narrative: ELIS SCRUGGS, is a 81 F with COPD, CHF, undergoing workup for possible lung cancer, recent admit here with thoracentesis then transfer to [place]. Was not on O2 at home. Yesterday, had sudden onset dyspnea, called 911, taken to ED, admitted with solumedrol, vanc, cefepime. Feeling about the same today. No fever, no cough/sputum/hemoptysis. Reports losing 40lbs in past year. Reports mother had TB when pt was a child, and pt has had multiple (+) TB skin tests and no prior treatment. No night sweats. Full ROS performed and neg except as noted above. [facility] Medical History Anemia Atherosclerosis of coronary artery of [place] heart without angina pectoris Atrial fibrillation Benign essential HTN Celiac disease CHF (congestive heart failure) Chronic anticoagulation Chronic kidney disease Chronic renal failure, stage 5 COLD (chronic obstructive lung disease) COPD (chronic obstructive pulmonary disease) Diabetes mellitus Family history of lung cancer FCHL (familial combined hyperlipidemia) Gastroesophageal reflux disease History of DVT (deep vein thrombosis) HLD (hyperlipidemia) Multiple excoriations Neoplasm of uncertain behavior of skin Pneumonia Pulmonary cachexia due to chronic obstructive pulmonary disease Solitary pulmonary nodule 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 Stage 1 mild COPD by GOLD classification Superficial thrombophlebitis of right leg Tobacco abuse Home Medications omeprazole 20 mg PO DAILY 12/30/14 [History Last Taken 03/08/22] albuterol sulfate 2 puff INHALATION Q4H PRN PRN #2 inhaler 04/14/20 [Rx Last Taken 03/08/22] tiotropium bromide 2.5 mcg/actuation mist for inhalation 1 puff INHALATION DAILY #4 g 07/29/20 [Rx Last Taken 03/08/22] aspirin [Aspirin Low-Strength] 81 mg PO DAILY 03/08/22 [History Last Taken 03/08/22] atorvastatin 40 mg PO QHS 03/08/22 [History Last Taken 03/07/22] carvedilol 3.125 mg PO BID 03/08/22 [History Last Taken 03/08/22] enoxaparin 40 mg SUBCUT DAILY 03/08/22 [History Last Taken 03/06/22] mometasone-formoterol [Dulera] 2 inh INHALATION BID 03/08/22 [History Last Taken 03/08/22] warfarin 2 mg PO MOWETHFR 03/08/22 [History Last Taken 03/08/22] warfarin 4 mg PO SUTUSA 03/08/22 [History Last Taken 03/07/22] Allergy/AdvReac Type Severity Reaction Status Date / Time diltiazem HCl [From Cardizem] Allergy Angioedema Verified 03/08/22 13:12 fluticasone furoate Allergy PT UNSURE Verified 03/08/22 13:12 [From Breo Ellipta] OF REACTION gatifloxacin [From Tequin] Allergy Unknown Verified 03/08/22 13:12 hydrochlorothiazide Allergy Other Verified 03/08/22 13:12 [From Maxzide] Penicillins [PCN] Allergy Hives Verified 03/08/22 13:12 triamterene [From Maxzide] Allergy Other Verified 03/08/22 13:12 vilanterol Allergy PT UNSURE Verified 03/08/22 13:12 [From Breo Ellipta] OF REACTION codeine AdvReac Upset Verified 03/08/22 13:12 Stomach Family History Father Diabetes Lung cancer Mother Heart disease Hypertension Surgical History History of appendectomy History of hysterectomy History of left heart catheterization (02/19/22) History of skin graft Status post insertion of dialysis catheter Social History (Updated 03/08/22 @ 16:[address] Oumou Alaniz MD) household members: none Smoking Status: Former smoker how long ago did patient quit smoking: Quit ~ 1 month prior, smoked 1.5 ppd since youth until quit. second hand exposure: Yes alcohol intake: never substance use type: does not use caffeine: Yes what type of physical activity do you participate in: none Physical Exam Const alert and no apparent distress General Appearance: cooperative Exam Limitations: no limitations HEENT normocephalic and head/scalp atraumatic Eyes PERRL and EOMs intact bilaterally Neck supple and No nodes Resp Auscultation: wheezes Cardio regular rate and regular rhythm GI soft to palpation, non-tender and non-distended Extremity no clubbing, cyanosis or edema Skin no rashes or lesions noted Neuro CN's II-XII intact bilaterally Lab / Micro Data Result Diagrams: 03/09/22 06:00 03/09/22 06:00 Labs: Laboratory Results - last 24 hr 03/08/22 13:35: WBC 7.7, RBC 3.17 L, Hgb 9.6 L, Hct 31.5 L, MCV 99.4 H D, MCH 3 0.3, MCHC 30.5 L D, RDW Std Deviation 54.9 H, RDW Coeff of Oly 14.9 H, Plt Count 130 L, MPV 10.4, Immature Gran % (Auto) 0.400, Neut % (Auto) 92.2 H, Lymph % (Auto) 5.0 L, Hughes % (Auto) 2.3, Eos % (Auto) 0.0, Baso % (Auto) 0.1, Absolute Neuts (auto) 7.1, Absolute Lymphs (auto) 0.38 L, Nucleated RBC % 0, Differential Comment COMMENT 03/08/22 13:35: PT 22.2 H, INR 2.0 03/08/22 13:35: Sodium 140, Potassium 3.8, Chloride 104, Carbon Dioxide 27.0, Anion Gap 9, BUN 30 H, Creatinine 1.37 H, Estim Creat Clear Calc 19.93, Est GFR (MDRD) Af Amer 48 L, Est GFR (MDRD) Non-Af 39 L, BUN/Creatinine Ratio 21.9 H, Glucose 236 H, Calcium 8.0 L, Total Bilirubin 0.40, AST 32, ALT 40, Alkaline Phosphatase 70, Troponin I High Sens 152 H*, Total Protein 5.5 L, Albumin 2.6 L, Globulin 2.9, Albumin/Globulin Ratio 0.9 03/08/22 13:35: Lactic Acid 1.7 03/08/22 13:35: Magnesium 1.4 L 03/08/22 15:53: Troponin I High Sens 323 H* 03/08/22 16:51: Procalcitonin 0.25 H 03/08/22 18:09: POC Glucose 211 H 03/08/22 18:35: MRSA (PCR) Negative 03/08/22 19:55: Troponin I High Sens 296 H* 03/08/22 21:51: POC Glucose 398 H 03/09/22 06:00: WBC 8.6, RBC 2.97 L, Hgb 8.9 L, Hct 28.6 L, MCV 96.3, MCH 30.0, MCHC 31.1 L, RDW Std Deviation 52.1 H, RDW Coeff of Oly 14.9 H, Plt Count 110 L, MPV 10.1, Immature Gran % (Auto) 0.300, Neut % (Auto) 92.8 H, Lymph % (Auto) 3.8 L, Hughes % (Auto) 3.1, Eos % (Auto) 0.0, Baso % (Auto) 0.0, Absolute Neuts (auto) 8.0 H, Absolute Lymphs (auto) 0.33 L, Nucleated RBC % 0, Anisocytosis 1+ 03/09/22 06:00: PT Cancelled, INR Cancelled 03/09/22 06:00: Sodium 138, Potassium 3.8, Chloride 105, Carbon Dioxide 25.0, Anion Gap 8, BUN 32 H, Creatinine 1.24 H, Estim Creat Clear Calc 22.44, Est GFR (MDRD) Af Amer 53 L, Est GFR (MDRD) Non-Af 44 L, BUN/Creatinine Ratio 25.8 H, Glucose 280 H, Calcium 8.0 L, Magnesium 2.3, Total Bilirubin 0.30, AST 17, ALT 34, Alkaline Phosphatase 61, Total Protein 5.1 L, Albumin 2.3 L, Globulin 2.8, Albumin/Globulin Ratio 0.8 L 03/09/22 06:00: Hemoglobin A1c 7.2 H 03/09/22 06:52: POC Glucose 254 H 03/09/22 08:30: PT 24.6 H, INR 2.3 Micro: Microbiology 03/08/22 16:51 Mucosa - Nose Respiratory Panel (PCR) - Final Radiology Impression Chest X-Ray 03/08/22 13:45 IMPRESSION: Progressive pleural parenchymal changes at the left lung base. The remainder of the examination is unchanged. Electronically Signed: Yahir Healy MD at 14:01 EDT , Chest CTA 03/08/22 15:05 IMPRESSION: 1. No demonstrated pulmonary embolism or arterial dissection. 2. There is a masslike infiltrate in the left lower lobe measuring 41 x 24 mm. This may be a pneumonia. Follow up studies advised. Neoplasm cannot be excluded. The mass is unchanged since January 2022. Right lower lobe infiltrates are seen. The largest lesion appears cavitary and is noted in the superior segment of the right lower lobe measuring 20 mm. This is likely a cavitary pneumonia. 3. Small right and large left pleural effusion. This is stable. Electronically Signed: Danny Puente MD at 17:16 EDT ,
[2022-03-09 11:46] LABS: Bedside Glucose 336 mg/dL (74-106)
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
[2022-03-09] MEDS: Sodium Chloride 3% 500 ML IV.SOLN. INHALATION ×2 (13:19→19:24)
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
[2022-03-09 16:11] LABS: Bedside Glucose 367 mg/dL (74-106)
--- NOTE | 2022-03-09 17:31 | EKG12_ITS ---
Test Reason : Blood Pressure : / mmHG Vent. Rate : 140 BPM Atrial Rate : 170 BPM P-R Int : 000 ms QRS Dur : 088 ms QT Int : 324 ms P-R-T Axes : 000 068 248 degrees QTc Int : 494 ms Atrial fibrillation Marked ST abnormality, possible inferior subendocardial injury Marked ST abnormality, possible anterolateral subendocardial injury Abnormal ECG When compared with ECG of 08-MAR-2022 13:31, MANUAL COMPARISON REQUIRED, DATA IS UNCONFIRMED Confirmed by REYMUNDO GARAY, YANELY ([id number]), web content editor LUIS MENDEZ ([id number]) on 03/10/2022 2:11:21 PM Referred By: KEENA Confirmed By:YANELY DWYER MD
[2022-03-09] MEDS: Metoprolol Tartrate 5 MG/5 ML Vial 2.5 MG IV (17:42)
[2022-03-09] MEDS: Vancomycin IV 500 MG/100 ML BAG 100 MG IV (22:05)
[2022-03-09 22:21] LABS: Bedside Glucose 289 mg/dL (74-106)
[2022-03-09] MEDS: hydrOXYzine PAM 25 MG Capsule PO (22:29)
[2022-03-09] MEDS: Atorvastatin Calcium 40 MG Tablet PO (22:29)
[2022-03-10] VITALS (17 sets, daily range): BP systolic 93–161; BP diastolic 59–98; PULSE 76–122; RESP 12–22; TEMP 36.1–36.7; O2SAT 96–100
[2022-03-10] MEDS: 0.9% Saline Lock 10 ML Syringe IV ×3 (02:41→21:45)
[2022-03-10] MEDS: Digoxin 250 MCG/ML Ampul 500 MCG IV (02:41)
[2022-03-10] MEDS: Insulin Lispro 100 UNIT/ML INSULN.PEN SC ×4 (06:30→21:42)
[2022-03-10] MEDS: Digoxin 250 MCG/ML Ampul IV (06:31)
[2022-03-10 06:42] LABS: Absolute Lymphocyte Count 0.32 X10^3/uL (0.83-4.51); Absolute Neutrophil Count 7.6 X10^3/uL (2.0-7.7); Hematocrit 29.4 % (37-47); Lymphocyte # 0.32 X10^3/ul (0.83-4.51); Lymphocyte % 3.9 % (19-41); Mean Corp Hgb Conc 30.6 g/dL (32-36); Mean Corpuscular Hgb 29.2 pg (27.0-32.0); Mean Corpuscular Volume 95.5 fL (81-99); Mean Platelet Vol. 10.6 fl (6.2-12.0); Monocyte% 2.5 % (0-10); NRBC Flagged by Analyzer 0 % (0-5); Neutrophil # 7.61 X10^3/uL (2.7-7.7); Neutrophil % 93.2 % (47-70); POSITIVE DIFFERENTIAL YES; Platelet Count 140 K/mm3 (150-450); RBC Distribution Width CV 14.7 % (11.6-14.6); RBC Distribution Width SD 51.3 fl (35.1-43.9); Red Blood Count 3.08 M/mm3 (4.2-5.4); White Blood Count 8.2 K/mm3 (4.4-11.0)
[2022-03-10 06:46] LABS: Bedside Glucose 245 mg/dL (74-106)
[2022-03-10 06:50] LABS: Differential Indicated SCAN CRITERIA MET
[2022-03-10 07:06] LABS: Anion Gap 6 (5-15); BUN 42 mg/dL (7-18); BUN/Creat Ratio 30.7 RATIO (10-20); Chloride 106 mmol/L (98-107); Creatinine, Serum 1.37 mg/dL (0.55-1.02); EST Glomerular Filtration Rate 39 mL/min (>60); Est Glom Filt Rate - Afr Amer 48 mL/min (>60); Estimated Creatinine Clearance 21.35 ml/min; Glucose 247 mg/dL (74-106); Potassium 3.9 mmol/L (3.5-5.1); Sodium Level 140 mmol/L (136-145)
[2022-03-10 07:09] LABS: Anisocytosis 1+
[2022-03-10] MEDS: Budesonide Respules 0.5 MG/2 ML AMPUL.NEB. INHALATION ×2 (07:15→19:36)
[2022-03-10] MEDS: Sodium Chloride 3% 500 ML IV.SOLN. INHALATION (07:17)
--- NOTE | 2022-03-10 10:12 | EKG12_ITS ---
Test Reason : CP Blood Pressure : / mmHG Vent. Rate : 092 BPM Atrial Rate : 174 BPM P-R Int : 000 ms QRS Dur : 096 ms QT Int : 322 ms P-R-T Axes : 000 050 201 degrees QTc Int : [address] depression, consider subendocardial injury Nonspecific T wave abnormality Abnormal ECG When compared with ECG of 09-MAR-2022 17:31, MANUAL COMPARISON REQUIRED, DATA IS UNCONFIRMED Confirmed by REYMUNDO GARAY, YANELY ([id number]), advertising editor LUIS MENDEZ ([id number]) on 03/10/2022 2:08:32 PM Referred By: NEVA Confirmed By:YANELY DWYER MD
[2022-03-10] MEDS: Aspirin 81 MG TAB.CHEW PO (10:39)
[2022-03-10] MEDS: Pantoprazole Sodium 20 MG Tablet PO (10:39)
[2022-03-10] MEDS: SACUBITRIL/VALSARTAN 24/26 MG TABLET 1 EACH PO ×2 (10:39→21:44)
[2022-03-10] MEDS: Carvedilol 6.25 MG Tablet PO ×2 (10:40→21:44)
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
[2022-03-10] MEDS: guaiFENesin 10 ML UDC (200MG/10ML) 20 ML PO ×2 (11:44→16:19)
[2022-03-10] MEDS: Acetaminophen 325 MG Tablet 650 MG PO ×2 (11:45→16:19)
[2022-03-10 11:56] LABS: Bedside Glucose 304 mg/dL (74-106)
--- NOTE | 2022-03-10 12:07 | PN.HOSP_ITS ---
Subjective Subjective Patient seen and examined. She complained of having a bad night and had a headache. She still feels short of breath. She is on 2L of oxygen. She is now in isolation because TB is being ruled out. Objective Data Objective Data Vital Signs: Vital Signs Temp Pulse Resp BP Pulse Ox 97.6 F L 89 18 124/59 H 98 03/10/22 09:30 03/10/22 09:30 03/10/22 09:30 03/10/22 09:30 03/10/22 09:30 Oxygen Flow Rate (L/min) 2 Oxygen Delivery Method Nasal Cannula Weight: 91 lb 0.815 oz Body Mass Index (BMI) 13.9 Intake & Output: Intake and Output for Last 24 Hours 03/08/22 03/09/22 03/10/22 23:59 23:59 23:59 Intake Total 304 / 304 1560 / 1560 100 / 100 Output Total 300 / 300 0 / 0 Balance 304 / 304 1260 / 1260 100 / 100 Medical Nutrition Assessment Dietitian: Malnutrition Criteria Met Start: 03/09/22 11:05 Freq: Status: Active Protocol: Document 03/09/22 11:05 (Rec: 03/09/22 11:05 [id number]) Nutrition Malnutrition Evidence of Malnutrition Exists Yes Malnutrition (severe): Chronic Evidenced By Suboptimal Energy Intake ( Severe),Physical Changes ( Severe) Clinical Problem Chronic Disease or Condition Related Malnutrition Etiology severe, chronic malnutrition related to inadequate energy intake w/ increased energy needs due to pulmonary disease Signs/Symptoms as evidenced by estimated energy intake meeting <75% of estimated energy needs >3 months; severe muscle wasting/ fat loss evident per physical exam- depletion noted in orbital areas, temples, scapula, lower extremities; protrusion of clavicle, acromion process; BMI 14.9 Status Active Problem Recommendation Dietitian Recommendations/Changes will adjust diet to regular, no added salt given severe malnutrition; NO gluten restriction per pt; nepro 240mL and magic cup w/ lunch for additional calories/ protein if consumed. Lab / Micro Data Result Diagrams: 03/10/22 05:40 03/10/22 05:40 Labs: Laboratory Results - last 24 hr 03/09/22 15:56: POC Glucose 367 H 03/09/22 22:06: POC Glucose 289 H 03/10/22 05:40: WBC 8.2, RBC 3.08 L, Hgb 9.0 L, Hct 29.4 L, MCV 95.5, MCH 29.2, MCHC 30.6 L, RDW Std Deviation 51.3 H, RDW Coeff of Oly 14.7 H, Plt Count 140 L, MPV 10.6, Immature Gran % (Auto) 0.400, Neut % (Auto) 93.2 H, Lymph % (Auto) 3.9 L, [place] % (Auto) 2.5, Eos % (Auto) 0.0, Baso % (Auto) 0.0, Absolute Neuts (auto) 7.6, Absolute Lymphs (auto) 0.32 L, Nucleated RBC % 0, Anisocytosis 1+ 03/10/22 05:40: Sodium 140, Potassium 3.9, Chloride 106, Carbon Dioxide 28.0, Anion Gap 6, BUN 42 H, Creatinine 1.37 H, Estim Creat Clear Calc 21.35, Est GFR (MDRD) Af Amer 48 L, Est GFR (MDRD) Non-Af 39 L, BUN/Creatinine Ratio 30.7 H, Glucose 247 H, Calcium 8.0 L 03/10/22 06:26: POC Glucose 245 H 03/10/22 11:43: POC Glucose 304 H Micro: Microbiology 03/09/22 13:05 Sputum, Expectorated/Coughed Gram Stain - Final 03/09/22 13:05 Sputum, Expectorated/Coughed 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 Skin: Normal color, normal turgor, no icterus, no cyanosis. HEENT: AT/NC, EOMI, PERRLA, mildly dry MM, no carotid bruits or JVD noted. Lungs: Diminished diffusely, very tight, occasional very soft end expiratory wheeze, mild increased work of breathing and some accessory usage but lessening since initial ED evaluation, no rales or rhonchi. Heart: Irregular, currently rate controlled; no gallop, rub audible. Abdomen: Soft, thin cachectic habitus, NTTP, ND, distant normal BS, no HSM. Extremities: No cyanosis, clubbing, or edema. Neurological: Patient awake, alert, oriented as noted, cognitive function intact; pupils equally reactive to light and accommodation, cranial nerves II- XII grossly normal, moving all 4 extremities, no focal deficits, strength moderately to severely global decrease secondary to acute presentation. Psychiatric: Affect appears fatigued, work of breathing has been improving no acute evidence of depressive or anxiety feelings. Const alert and oriented x3 Constitutional Narrative: anxious Exam Limitations: no limitations Nutritional Appearance: cachectic HEENT head/scalp atraumatic, moist oral mucous membranes, oropharynx normal and dentition normal Head and Scalp: normocephalic Eyes PERRL, EOMs intact bilaterally and conjunctivae normal Neck no lymphadenopathy and supple Resp Resp Narrative: diminished breath sounds bibasally, few crackles bilaterally. No wheezes. on 2L of oxygen by nasal canula Cardio regular rate, regular rhythm, S1 normal heart sound, S2 normal heart sound and no murmurs GI normal to inspection, nondistended, normoactive bowel sounds, soft to palpation, non-tender and non-distended Extremity normal to inspection, full ROM and no clubbing, cyanosis or edema Peripheral Pulses: Yes pulses 2+ throughout Skin no rashes or lesions noted Neuro oriented x3, CN's II-XII intact bilaterally and moves all extremities Sensorium / Orientation: awake and alert Psych affect normal Assessment & Plan Assessment/Plan (1) Shortness of breath: (2) Acute exacerbation of chronic obstructive pulmonary disease: (3) Acute and chronic respiratory failure with hypercapnia: (4) Severe malnutrition: (5) Non-ST elevated myocardial infarction (non-STEMI): PLAN: #Nonstemi * Cardiology evaluated patient and recommends conservative management. * On aspirin. Continue Coumadin. 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 She was transferred to [facility] for possible CABG but she was deemed as needing medical therapy. * On low-dose beta-radha. #Acute hypoxic respiratory failure due to COPD exacerbation and probable pneumonia * on 2L of oxygen. * has an underlying lung lesion and is being worked up for cancer * pulmonology on board. * on breathing treatment with bronchodilators. On IV solumedrol * TB being ruled out, so patient in droplet isolation * on vancomycin and cefepime. * #History of DVT and PE * INR was 2 on admission. * CTA didnt show any evidence of PE * on coumadin. INR is therapeutic * * #HFrEF * has known EF of 15-20% from Echo done in January 2022. * On Coreg. Not on any diuretics. Not on statin due to intolerance. * #Paroxysmal afib; on coumadin and coreg. Target INR is 2-3 #Left lung mass * thought to be malignant * being worked up with pulmonology * per pulmonology, to have CT guided lung biopsy if she remains in the hospital for several days. * #Severe protein calorie malnutrition * BMI is only 14.9 * nutrition on board. * #DVT prophylaxis: on coumadin Code status: full code Charges/Coding Visit Charges Inpatient E&M: 04200 Subs Hosp L3
--- NOTE | 2022-03-10 12:23 | PN.CARD_ITS ---
Subjective Subjective The patient has been awake and alert. She states she did not sleep well last night. She states her main concern continues to be her shortness of breath and dyspnea. Objective Data Vital Signs: Vital Signs Temp Pulse Resp BP Pulse Ox 97.6 F L 89 18 124/59 H 98 03/10/22 09:30 03/10/22 09:30 03/10/22 09:30 03/10/22 09:30 03/10/22 09:30 Oxygen Flow Rate (L/min) 2 Oxygen Delivery Method Nasal Cannula Weight: 91 lb 0.815 oz Body Mass Index (BMI) 13.9 Intake & Output: Intake and Output for Last 24 Hours 03/08/22 03/09/22 03/10/22 23:59 23:59 23:59 Intake Total 304 / 304 1560 / 1560 100 / 100 Output Total 300 / 300 0 / 0 Balance 304 / 304 1260 / 1260 100 / 100 Lab / Micro Data Result Diagrams: 03/10/22 05:40 03/10/22 05:40 Labs: Laboratory Results - last 24 hr 03/09/22 15:56: POC Glucose 367 H 03/09/22 22:06: POC Glucose 289 H 03/10/22 05:40: WBC 8.2, RBC 3.08 L, Hgb 9.0 L, Hct 29.4 L, MCV 95.5, MCH 29.2, MCHC 30.6 L, RDW Std Deviation 51.3 H, RDW Coeff of Oly 14.7 H, Plt Count 140 L, MPV 10.6, Immature Gran % (Auto) 0.400, Neut % (Auto) 93.2 H, Lymph % (Auto) 3.9 L, [place] % (Auto) 2.5, Eos % (Auto) 0.0, Baso % (Auto) 0.0, Absolute Neuts (auto) 7.6, Absolute Lymphs (auto) 0.32 L, Nucleated RBC % 0, Anisocytosis 1+ 03/10/22 05:40: Sodium 140, Potassium 3.9, Chloride 106, Carbon Dioxide 28.0, Anion Gap 6, BUN 42 H, Creatinine 1.37 H, Estim Creat Clear Calc 21.35, Est GFR (MDRD) Af Amer 48 L, Est GFR (MDRD) Non-Af 39 L, BUN/Creatinine Ratio 30.7 H, Glucose 247 H, Calcium 8.0 L 03/10/22 06:26: POC Glucose 245 H 03/10/22 11:43: POC Glucose 304 H Micro: Microbiology 03/09/22 13:05 Sputum, Expectorated/Coughed Gram Stain - Final 03/09/22 13:05 Sputum, Expectorated/Coughed Respiratory Culture - 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 03/09/22 12:15 Urine, Clean Catch Streptococcus pneumoniae Antigen (M - Final 03/09/22 12:15 Urine, Clean Catch Legionella Antigen - Final Cardiology Labs/Tests 03/10/22 05:40: WBC 8.2, RBC 3.08 L, Hgb 9.0 L, Hct 29.4 L, MCV 95.5, MCH 29.2, MCHC 30.6 L, Plt Count 140 L, MPV 10.6, Immature Gran % (Auto) 0.400, Neut % (Auto) 93.2 H, Lymph % (Auto) 3.9 L, [place] % (Auto) 2.5, Eos % (Auto) 0.0, Baso % (Auto) 0.0, Absolute Neuts (auto) 7.6, Nucleated RBC % 0 03/10/22 05:40: Sodium 140, Potassium 3.9, Chloride 106, Carbon Dioxide 28.0, Anion Gap 6, BUN 42 H, Creatinine 1.37 H, Est GFR (MDRD) Af Amer 48 L, Est GFR (MDRD) Non-Af 39 L, BUN/Creatinine Ratio 30.7 H, Glucose 247 H, Calcium 8.0 L Rhythm: Atrial fibrillation with intermittent RVR Physical Exam Narrative This is an thin frail and cachectic appearing 81-year-old white female. Const alert and oriented x3 Orientation / Consciousness: awake HEENT normocephalic and head/scalp atraumatic Eyes PERRL, EOMs intact bilaterally and conjunctivae normal Neck full ROM, supple and no JVD Resp Auscultation: rhonchi throughout and diminished lung sounds bilateral lower (Left greater than right) Cardio regular rhythm, S1 normal heart sound and S2 normal heart sound Rhythm: abnormal rhythm ectopic beats GI normal to inspection, nondistended, normoactive bowel sounds Extremity no pedal edema Skin no rashes or lesions noted Neuro oriented x3, moves all extremities, no focal motor deficits and no sensory deficits noted Psych mental status grossly normal Assessment & Plan Assessment/Plan (1) Non-ST elevated myocardial infarction (non-STEMI): PLAN: The patient has abnormal cardiac enzymes. She has recently undergone extensive noninvasive and invasive cardiovascular evaluation locally as well as advanced cardiovascular evaluation at [facility]. Based upon her overall status her cardiac enzymes appear compatible with a type II non-STEMI thought secondary to acute exacerbation of her underlying pulmonary disease process. From a cardiac standpoint she will continue medical management as best as possible as she has been deemed not a candidate for revascularization either percutaneously or surgically at the [facility]. (2) Atherosclerosis of coronary artery of [place] heart without angina pectoris: PLAN: She does have extensive CAD as noted. At the moment she will continue to be monitored. She will continue conservative medical management. (3) Cardiomyopathy: QUALIFIERS: Cardiomyopathy type: ischemic Qualified Code(s): I25.5 - Ischemic cardiomyopathy PLAN: She does have an underlying significant cardiomyopathy which is thought related to her underlying CAD status thus being ischemic. As she is not a candidate for revascularization she will continue conservative medical management. An attempt is being made to advance her medications as best as tolerated. This is included her beta-radha therapy and afterload reducing therapy. (4) CHF (congestive heart failure): PLAN: She does have underlying chronic systolic mediated CHF. She will need to continue medical therapy. This may include the need for diuretic therapy as well. (5) Atrial fibrillation: PLAN: At the moment she appears to be in sinus rhythm. She will continue rate control therapy as deemed appropriate. She is also been placed on anticoagulant therapy with warfarin/Coumadin. (6) HLD (hyperlipidemia): PLAN: She will continue her lipid-lowering therapy. (7) Benign essential HTN: PLAN: Her blood pressure will be monitored. She will continue medical therapy. (8) Acute exacerbation of chronic obstructive pulmonary disease: PLAN: She does have the appearance of an underlying acute on chronic obstructive COPD type of event. There is concerns of radiologic studies suggesting pneumonia as well as possible neoplasm. She is continuing evaluation by undergoing sputum samples for acid-fast bacilli. She will need continued valuation care per internal medicine with consideration to pulmonology consultation. Addt'l Comments Overall, from a cardiovascular standpoint, she is continuing conservative medical management with adjustment of her medications as best as possible and tolerated to assist with her aforementioned cardiovascular conditions. There are no immediate plans for any additional cardiovascular diagnostic stud ies/interventions at this time. This note was generated using a voice recognition system and there may be incorrect words, spelling or punctuation that were not noted when reviewing the office note prior to saving. Procedure Criteria Type of Procedure Procedure Type: Elective Elective Risks - COVID COVID Risk Discussion: The surgeon/proceduralist and patient have discussed in detail the risk of exposure to and/or potential harm posed by the COVID-19 virus with having a surgery/procedure at this time versus the risk of delaying the surgery/procedure. It is not possible to know either the risk of delaying the surgery or procedure or chance of getting an infection with perfect accuracy, but a joint decision was made between the patient and the surgeon/proceduralist to proceed at this time with the scheduled surgery/procedure as indicated on the consent form.
--- NOTE | 2022-03-10 13:58 | PCM.PN.INT ---
Assessment & Plan Assessment/Plan (1) Acute exacerbation of chronic obstructive pulmonary disease: PLAN: RECOMMENDATIONS: 1. Continue antimicrobials per ID recommendations. 2. Continue bronchodilators and steroids. 3. Proceed with CT-guided lung biopsy tomorrow. 4. Coumadin has been placed on hold. Will administer vitamin K today. 5. Check PT/INR in the morning. 6. Await results of TB work-up. 7. Wean supplemental oxygen for saturations greater than 90%. IMPRESSIONS: 1. COPD with exacerbation While the patient does have reported COPD, according to Dr. Cuello's last pulmonary medicine note, it was only stage I mild obstructive lung disease. Pulmonary function studies were ordered at that time but have yet to be completed. While it is certainly plausible that the patient's underlying obstructive lung disease is contributing to her dyspnea, I cannot discount the impact that her underlying ischemic cardiomyopathy is contributing to her symptoms as well. For now, it is reasonable to continue antimicrobials per ID recommendations along with bronchodilators and IV steroids. Wean supplemental oxygen as tolerated for saturations greater than 90%. 2. Cavitary lung lesion/lung mass The patient's left-sided lung mass was known from her previous hospitalization. According to the patient, she was supposed to have an outpatient PET scan and follow-up with a [facility] provider for further work-up. Nevertheless, the patient has been followed in the past by Dr. Cuello the pulmonary medicine clinic. The lesion itself would be amenable to CT-guided percutaneous lung biopsy. The case was discussed with radiology who is agreeable to CT-guided lung biopsy on the morning of March 11. 3. Non-ST segment elevation [place] The patient has known multivessel coronary disease, but was not deemed to be a good surgical candidate. Therefore, plan to continue medical management per cardiology recommendations. She was last documented to have an ejection fraction of 15 to 20% in January 2022. 4. History of venous thromboembolic disease Coumadin to be placed on hold in preparation for CT-guided lung biopsy. Vitamin K will be administered today. Check PT/INR in the morning. This note was generated with [employer] software. It may contain incorrect words, spelling, and punctuation that were not noted in checking the note before signing. Subjective Subjective The patient was seen and examined at the bedside this morning. Events from the last 24 hours have been reviewed. The patient is currently afebrile, hemodynamically stable and maintaining appropriate oxygen saturations on 2 L/min via nasal cannula. The patient does report the presence of shortness of breath after she ambulated to the bathroom. INR was last noted to be 2.3 yesterday. I did call and personally discussed the patient's case with radiology. They are agreeable to proceeding with CT-guided lung biopsy of the patient's left-sided lung mass tomorrow morning. This was conveyed to the patient as well. Objective Data Objective Data The patient's most recent lab work, culture data and imaging studies have all been personally reviewed. Sputum for AFB x3 pending. Sputum culture is positive for gram-negative annemarie. Vital Signs: Vital Signs Temp Pulse Resp BP Pulse Ox 98.1 F 77 18 127/71 H 98 03/10/22 13:07 03/10/22 13:07 03/10/22 13:07 03/10/22 13:07 03/10/22 13:07 Oxygen Flow Rate (L/min) 2 Oxygen Delivery Method Nasal Cannula Weight: 41.3 kg Body Mass Index (BMI) 13.9 Intake & Output: Intake and Output for Last 24 Hours 03/08/22 03/09/22 03/10/22 23:59 23:59 23:59 Intake Total 304 / 304 1560 / 1560 460 / 460 Output Total 300 / 300 0 / 0 Balance 304 / 304 1260 / 1260 460 / 460 Medical Nutrition Assessment Dietitian: Malnutrition Criteria Met Start: 03/09/22 11:05 Freq: Status: Active Protocol: Document 03/09/22 11:05 (Rec: 03/09/22 11:05 [id number]) Nutrition Malnutrition Evidence of Malnutrition Exists Yes Malnutrition (severe): Chronic Evidenced By Suboptimal Energy Intake ( Severe),Physical Changes ( Severe) Clinical Problem Chronic Disease or Condition Related Malnutrition Etiology severe, chronic malnutrition related to inadequate energy intake w/ increased energy needs due to pulmonary disease Signs/Symptoms as evidenced by estimated energy intake meeting <75% of estimated energy needs >3 months; severe muscle wasting/ fat loss evident per physical exam- depletion noted in orbital areas, temples, scapula, lower extremities; protrusion of clavicle, acromion process; BMI 14.9 Status Active Problem Recommendation Dietitian Recommendations/Changes will adjust diet to regular, no added salt given severe malnutrition; NO gluten restriction per pt; nepro 240mL and magic cup w/ lunch for additional calories/ protein if consumed. Lab / Micro Data Attestation: I reviewed the patient's lab results. Result Diagrams: 03/10/22 05:40 03/10/22 05:40 Labs: Laboratory Results - last 24 hr 03/09/22 15:56: POC Glucose 367 H 03/09/22 22:06: POC Glucose 289 H 03/10/22 05:40: WBC 8.2, RBC 3.08 L, Hgb 9.0 L, Hct 29.4 L, MCV 95.5, MCH 29.2, MCHC 30.6 L, RDW Std Deviation 51.3 H, RDW Coeff of Oly 14.7 H, Plt Count 140 L, MPV 10.6, Immature Gran % (Auto) 0.400, Neut % (Auto) 93.2 H, Lymph % (Auto) 3.9 L, [place] % (Auto) 2.5, Eos % (Auto) 0.0, Baso % (Auto) 0.0, Absolute Neuts (auto) 7.6, Absolute Lymphs (auto) 0.32 L, Nucleated RBC % 0, Anisocytosis 1+ 03/10/22 05:40: Sodium 140, Potassium 3.9, Chloride 106, Carbon Dioxide 28.0, Anion Gap 6, BUN 42 H, Creatinine 1.37 H, Estim Creat Clear Calc 21.35, Est GFR (MDRD) Af Amer 48 L, Est GFR (MDRD) Non-Af 39 L, BUN/Creatinine Ratio 30.7 H, Glucose 247 H, Calcium 8.0 L 03/10/22 06:26: POC Glucose 245 H 03/10/22 11:43: POC Glucose 304 H Micro: Microbiology 03/09/22 13:05 Sputum, Expectorated/Coughed Gram Stain - Final 03/09/22 13:05 Sputum, Expectorated/Coughed Respiratory Culture - Preliminary GNR lactose yardage estimator 03/09/22 12:15 Urine, Clean Catch Streptococcus pneumoniae Antigen (M - Final 03/09/22 12:15 Urine, Clean Catch Legionella Antigen - Final 03/08/22 16:51 Mucosa - Nose Respiratory Panel (PCR) - Final Physical Exam Const alert and no apparent distress General Appearance: cooperative and frail Nutritional Appearance: cachectic HEENT normocephalic, head/scalp atraumatic and moist oral mucous membranes Eyes PERRL, EOMs intact bilaterally and conjunctivae normal Neck supple General: trachea midline Chest inspection of chest normal Resp Auscultation: diminished lung sounds; Negative for rales, rhonchi or wheezes Cardio S1 normal heart sound and S2 normal heart sound Rhythm: abnormal rhythm GI normal to inspection, nondistended, normoactive bowel sounds Extremity no clubbing, cyanosis or edema Skin no rashes or lesions noted Neuro CN's II-XII intact bilaterally, moves all extremities and no focal motor deficits Psych cooperative and affect normal Charges/Coding Visit Charges Inpatient E&M: 07113 Subs Hosp L3
[2022-03-10 15:36] LABS: Acid Fast Stain SEE PATHOLOGY REPORT; Cytology, Body Fluid / CSF SEE PATHOLOGY REPORT
[2022-03-10 16:35] LABS: Bedside Glucose 339 mg/dL (74-106)
--- NOTE | 2022-03-10 18:34 | PCM.PN.ID ---
Physical Exam Narrative Breathing worse after doing sputum induction. No fever. Const alert and no apparent distress General Appearance: cooperative Resp Auscultation: rhonchi and diminished lung sounds Cardio regular rate and regular rhythm GI soft to palpation, non-tender and non-distended Skin no rashes or lesions noted ID ID: Route of nutrition/ use of supplements: [] Nutritional Intake: [] IV Site: [] Crane Catheter: [] Assessment & Plan Assessment/Plan (1) Acute respiratory failure with hypoxia: (2) Pneumonia: PLAN: New R sided lower lobe cavitary pneumonia seen on CT, not there in 01/2022 during recent admit. 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 No h/o treatment for TB. Does have weight loss, undergoing workup for suspected malignancy in [facility]. Outpt PET was planned. Recent admit here then transfer to [facility]; will request records from that stay. MRSA pcr was neg. Will continue vanc/cefepime for now. Sputum with GNR. She reports covid vaccine x3. Pending quantiferon. Sputum AFB x3 smear neg, will stop isolation. If bronch, biopsy, or thoracentesis is done, would send AFB. Will follow
[2022-03-10] MEDS: Atorvastatin Calcium 40 MG Tablet PO (21:45)
[2022-03-10] MEDS: LORazepam 1 MG Tablet PO (21:59)
[2022-03-10 22:38] LABS: Vancomycin, Trough Level 8.6 ug/mL (5.0-15.0)
--- NOTE | 2022-03-10 23:12 | PCM.RX.CS ---
Consult Pharmacy has been consulted to manage selected antiobiotic: Vancomycin Type of Consult: Follow-up Labs: Sodium 140 mmol/L (136-145) 03/10/22 05:40 Potassium 3.9 mmol/L (3.5-5.1) 03/10/22 05:40 Chloride 106 mmol/L (98-107) 03/10/22 05:40 Carbon Dioxide 28.0 mmol/L (21.0-32.0) 03/10/22 05:40 Anion Gap 6 (5-15) 03/10/22 05:40 BUN 42 mg/dL (7-18) H 03/10/22 05:40 Creatinine 1.37 mg/dL (0.55-1.02) H 03/10/22 05:40 Est GFR (MDRD) Af Amer 48 mL/min (>60) L 03/10/22 05:40 Est GFR (MDRD) Non-Af 39 mL/min (>60) L 03/10/22 05:40 BUN/Creatinine Ratio 30.7 RATIO (10-20) H 03/10/22 05:40 Glucose 247 mg/dL (74-106) H 03/10/22 05:40 Vancomycin Trough 8.6 ug/mL (5.0-15.0) 03/10/22 21:20 Microbiology: Microbiology 03/09/22 13:05 Sputum, Expectorated/Coughed Gram Stain - Final 03/09/22 13:05 Sputum, Expectorated/Coughed Respiratory Culture - Preliminary GNR lactose help desk representative 03/09/22 12:15 Urine, Clean Catch Streptococcus pneumoniae Antigen (M - Final 03/09/22 12:15 Urine, Clean Catch Legionella Antigen - Final 03/08/22 16:51 Mucosa - Nose Respiratory Panel (PCR) - Final Goal Trough: 15-20 mcg/mL Pharmacy Plan for Drug Dosing: Pharmacy Service will continue to monitor and adjust dosing as required. TROUGH 8.6 INCREASE TO 1GM Q24H AND FOLLOW UP TROUGH IN 2 DAYS Follow-Up Labs: Trough Vancomycin Labs to be done on [date and time ordered]: 03/12 @ 2300
[2022-03-10 23:21] LABS: Bedside Glucose 338 mg/dL (74-106)
[2022-03-10] MEDS: Vancomycin IV 1,000 MG/200 ML BAG 200 MG IV (23:28)
[2022-03-11] VITALS (19 sets, daily range): BP systolic 118–174; BP diastolic 52–104; PULSE 70–98; RESP 18–24; TEMP 36.4–37.5; O2SAT 96–100
--- NOTE | 2022-03-11 | ASPIGT_PTH ---
PATIENT: ELIS SCRUGGS LOC: [facility] U#:[id number] AGE/SX: 81/F ROOM: [facility] RE03/08/[address]: Dr. Michelle Root MD : [id number] BED: 1 DIS: 03/13/2022 SPEC #: [id number] RECD: 03/11/22 09:54 STATUS: AMAURY RECoby #: [id number] STANLEY: 03/11/22 00:[address]: Michelle Root DEPT: SURGICAL PATHOLOGY RECD BY: Ryder Tolbert ENTERED: 03/11/22 09:55 SP TYPE: ASP RAD OTHR DR: MD Dr. Baltazar Magallon MD Dr. Derek Brown, DO Dr. Yudith Rosales, MD Dr. J Carlos Corona Dr., MD Christina Muller, BIOMEDICAL MANAGER-C Tissues: Lung, NOS Procedures: FNA Specimen Adequacy Elastin Stain (control) Trichrome (control) Special Stain Group II Surgery Specimen Level IV Retic (control) Imprint (control) HEADER OPERATION: CT-guided lung biopsy PRE-OP DIAGNOSIS: Left lung mass TISSUE SUBMITTED: Left lower lung mass 20-gauge core x5 MICROSCOPIC DIAGNOSIS Left lower lobe lung mass, CT-guided core biopsy: Lung parenchymal tissue with interstitial fibrosis and chronic inflammation. Negative for malignancy. See comment. CLINT:shady 03/12/2022 COMMENT The specimen is evaluated at the time of biopsy by Dr. Guillermo. Immediate Evaluation = Negative for malignant cells. Elastic, reticulum and trichrome stains with matched controls are used in the evaluation of the specimen. Case has been reviewed in consultation with Dr. Harris who concurs with the above diagnosis. IDC:AM MICROSCOPIC DESCRIPTION Slides are reviewed. GROSS DESCRIPTION Received in fixative is one container labeled with the patient's name and designated left lung. The specimen consists of multiple irregular fragments of light drake soft tissue that in aggregate measure 1 x <0.1 x <0.1 cm. The specimen is totally submitted in one cassette. / AM:shady 03/11/2022 TC:5 CPT: 21144, 34992 x3, 08438
[2022-03-11 06:24] LABS: Absolute Lymphocyte Count 0.36 X10^3/uL (0.83-4.51); Absolute Neutrophil Count 9.3 X10^3/uL (2.0-7.7); Basophil# 0.01 X10^3/uL; Basophil% 0.1 % (0-1); Hematocrit 29.2 % (37-47); Hemoglobin 8.9 g/dL (12.0-15.0); Lymphocyte # 0.36 X10^3/ul (0.83-4.51); Lymphocyte % 3.6 % (19-41); Mean Corp Hgb Conc 30.5 g/dL (32-36); Mean Corpuscular Hgb 29.3 pg (27.0-32.0); Mean Corpuscular Volume 96.1 fL (81-99); Mean Platelet Vol. 10.4 fl (6.2-12.0); Monocyte# 0.29 X10^3/uL; Monocyte% 2.9 % (0-10); NRBC Flagged by Analyzer 0 % (0-5); Neutrophil # 9.29 X10^3/uL (2.7-7.7); POSITIVE DIFFERENTIAL YES; Platelet Count 153 K/mm3 (150-450); RBC Distribution Width CV 14.5 % (11.6-14.6); RBC Distribution Width SD 50.9 fl (35.1-43.9); Red Blood Count 3.04 M/mm3 (4.2-5.4)
[2022-03-11 06:26] LABS: Differential Indicated SCAN CRITERIA MET
[2022-03-11 06:32] LABS: International Normalized Ratio 1.3; Prothrombin Time (Protime)PT. 15.9 SECONDS (11.7-14.9)
[2022-03-11] MEDS: 0.9% Saline Lock 10 ML Syringe IV ×3 (06:42→22:15)
[2022-03-11 06:45] LABS: Anion Gap 5 (5-15); BUN 39 mg/dL (7-18); BUN/Creat Ratio 30.7 RATIO (10-20); Calcium,Total 7.8 mg/dL (8.5-10.1); Chloride 107 mmol/L (98-107); Creatinine, Serum 1.27 mg/dL (0.55-1.02); EST Glomerular Filtration Rate 43 mL/min (>60); Est Glom Filt Rate - Afr Amer 52 mL/min (>60); Estimated Creatinine Clearance 23.93 ml/min; Glucose 261 mg/dL (74-106); Potassium 3.9 mmol/L (3.5-5.1); Sodium Level 141 mmol/L (136-145)
--- NOTE | 2022-03-11 06:55 | PCM.PN.INT ---
Assessment & Plan Assessment/Plan (1) Acute exacerbation of chronic obstructive pulmonary disease: PLAN: RECOMMENDATIONS: 1. Continue antimicrobials per ID recommendations. 2. Continue bronchodilators and steroids. 3. Proceed with CT-guided lung biopsy. 4. Wean supplemental oxygen for saturations greater than 90%. 5. Initiate Lovenox bridge to Coumadin postbiopsy. IMPRESSIONS: 1. COPD with exacerbation While the patient does have reported COPD, according to Dr. Cuello's last pulmonary medicine note, it was only stage I mild obstructive lung disease. Pulmonary function studies were ordered at that time but have yet to be completed. While it is certainly plausible that the patient's underlying obstructive lung disease is contributing to her dyspnea, I cannot discount the impact that her underlying ischemic cardiomyopathy is contributing to her symptoms as well. For now, it is reasonable to continue antimicrobials per ID recommendations along with bronchodilators and IV steroids. Wean supplemental oxygen as tolerated for saturations greater than 90%. 2. Cavitary lung lesion/lung mass The patient's left-sided lung mass was known from her previous hospitalization. According to the patient, she was supposed to have an outpatient PET scan and follow-up with a [facility] provider for further work-up. Nevertheless, the patient has been followed in the past by Dr. Cuello the pulmonary medicine clinic. The lesion itself would be amenable to CT-guided percutaneous lung biopsy. The case was discussed with radiology who is agreeable to CT-guided lung biopsy this morning. 3. Non-ST segment elevation [place] The patient has known multivessel coronary disease, but was not deemed to be a good surgical candidate. Therefore, plan to continue medical management per cardiology recommendations. She was last documented to have an ejection fraction of 15 to 20% in January 2022. 4. History of venous thromboembolic disease Continue to hold Coumadin for CT-guided lung biopsy this morning. The patient can be initiated on therapeutic Lovenox post-biopsy with plans to bridge her back to Coumadin. This note was generated with [employer] dictation software. It may contain incorrect words, spelling, and punctuation that were not noted in checking the note before signing. Subjective Subjective The patient was seen and examined at the bedside this morning. Events from the last 24 hours have been reviewed. The patient is currently afebrile, hemodynamically stable and maintaining appropriate oxygen saturations on 2 L/min via nasal cannula. Sputum for AFB x3 were negative. INR this morning was noted to be 1.3 after receiving vitamin K yesterday in preparation for CT-guided biopsy this morning. Creatinine is stable at 1.27. Objective Data Objective Data The patient's most recent lab work, culture data and imaging studies have all been personally reviewed. Sputum for AFB x3 pending. Sputum culture is positive for gram-negative annemarie. Sputum for AFB x3 were negative. Vital Signs: Vital Signs Temp Pulse Resp BP Pulse Ox 97.7 F L 73 18 152/73 H 99 03/11/22 03:26 03/11/22 03:26 03/11/22 03:26 03/11/22 03:26 03/11/22 03:26 Oxygen Flow Rate (L/min) 2 Oxygen Delivery Method Nasal Cannula Weight: 42.9 kg Body Mass Index (BMI) 13.9 Intake & Output: Intake and Output for Last 24 Hours 03/09/22 03/10/22 03/11/22 23:59 23:59 23:59 Intake Total 1560 / 1560 1055.5 / 1055.5 200 / 200 Output Total 300 / 300 0 / 0 Balance 1260 / 1260 1055.5 / 1055.5 200 / 200 Medical Nutrition Assessment Dietitian: Malnutrition Criteria Met Start: 03/09/22 11:05 Freq: Status: Active Protocol: Document 03/09/22 11:05 (Rec: 03/09/22 11:05 [id number]) Nutrition Malnutrition Evidence of Malnutrition Exists Yes Malnutrition (severe): Chronic Evidenced By Suboptimal Energy Intake ( Severe),Physical Changes ( Severe) Clinical Problem Chronic Disease or Condition Related Malnutrition Etiology severe, chronic malnutrition related to inadequate energy intake w/ increased energy needs due to pulmonary disease Signs/Symptoms as evidenced by estimated energy intake meeting <75% of estimated energy needs >3 months; severe muscle wasting/ fat loss evident per physical exam- depletion noted in orbital areas, temples, scapula, lower extremities; protrusion of clavicle, acromion process; BMI 14.9 Status Active Problem Recommendation Dietitian Recommendations/Changes will adjust diet to regular, no added salt given severe malnutrition; NO gluten restriction per pt; nepro 240mL and magic cup w/ lunch for additional calories/ protein if consumed. Lab / Micro Data Attestation: I reviewed the patient's lab results. Result Diagrams: 03/11/22 06:10 03/11/22 06:10 Labs: Laboratory Results - last 24 hr 03/10/22 05:40: Anisocytosis 1+ 03/10/22 05:40: Sodium 140, Potassium 3.9, Chloride 106, Carbon Dioxide 28.0, Anion Gap 6, BUN 42 H, Creatinine 1.37 H, Estim Creat Clear Calc 21.35, Est GFR (MDRD) Af Amer 48 L, Est GFR (MDRD) Non-Af 39 L, BUN/Creatinine Ratio 30.7 H, Glucose 247 H, Calcium 8.0 L 03/10/22 11:05: Acid Fast Stain SEE PATHOLOGY REPORT, Miscellaneous Cytology SEE PATHOLOGY REPORT 03/10/22 11:43: POC Glucose 304 H 03/10/22 16:14: POC Glucose 339 H 03/10/22 21:20: Vancomycin Trough 8.6 03/10/22 21:42: POC Glucose 338 H 03/11/22 06:10: WBC 10.0, RBC 3.04 L, Hgb 8.9 L, Hct 29.2 L, MCV 96.1, MCH 29.3, MCHC 30.5 L, RDW Std Deviation 50.9 H, RDW Coeff of Oly 14.5, Plt Count 153, MPV 10.4, Immature Gran % (Auto) 0.400, Neut % (Auto) 93.0 H, Lymph % (Auto) 3.6 L, [place] % (Auto) 2.9, Eos % (Auto) 0.0, Baso % (Auto) 0.1, Absolute Neuts (auto) 9.3 H, Absolute Lymphs (auto) 0.36 L, Nucleated RBC % 0 03/11/22 06:10: Sodium 141, Potassium 3.9, Chloride 107, Carbon Dioxide 29.0, Anion Gap 5, BUN 39 H, Creatinine 1.27 H, Estim Creat Clear Calc 23.93, Est GFR (MDRD) Af Amer 52 L, Est GFR (MDRD) Non-Af 43 L, BUN/Creatinine Ratio 30.7 H, Glucose 261 H, Calcium 7.8 L 03/11/22 06:10: PT 15.9 H, INR 1.3 Micro: Microbiology 03/09/22 13:05 Sputum, Expectorated/Coughed Gram Stain - Final 03/09/22 13:05 Sputum, Expectorated/Coughed Respiratory Culture - Preliminary GNR lactose network desktop support specialist 03/09/22 12:15 Urine, Clean Catch Streptococcus pneumoniae Antigen (M - Final 03/09/22 12:15 Urine, Clean Catch Legionella Antigen - Final 03/08/22 16:51 Mucosa - Nose Respiratory Panel (PCR) - Final Physical Exam Const alert and no apparent distress General Appearance: cooperative and frail Nutritional Appearance: cachectic HEENT normocephalic, head/scalp atraumatic and moist oral mucous membranes General Ear: hearing grossly impaired Eyes PERRL, EOMs intact bilaterally and conjunctivae normal Neck supple General: trachea midline Chest inspection of chest normal Resp Auscultation: diminished lung sounds; Negative for rales, rhonchi or wheezes Cardio S1 normal heart sound and S2 normal heart sound Rhythm: abnormal rhythm GI normal to inspection, nondistended, normoactive bowel sounds Extremity no clubbing, cyanosis or edema Skin no rashes or lesions noted Neuro CN's II-XII intact bilaterally, moves all extremities and no focal motor deficits Psych cooperative and affect normal Charges/Coding Visit Charges Inpatient E&M: 61134 Subs Hosp L2
[2022-03-11 07:11] LABS: Bedside Glucose 235 mg/dL (74-106)
[2022-03-11] MEDS: Midazolam 2 MG/2 ML Syringe IV (09:02)
[2022-03-11] MEDS: fentaNYL 100 MCG/2 ML Ampul IV (09:03)
[2022-03-11] MEDS: 0.9% Normal Saline 1,000 ML 15 ML IV (09:03)
[2022-03-11] MEDS: Lidocaine 2% (20 ml mdv) 20 ML Vial INFILT (09:13)
--- NOTE | 2022-03-11 09:30 | CT_ITS ---
PROCEDURE: CT GUIDED CORE NEEDLE BIOPSY OF A left lower lobe LUNG LESION INDICATION: Female, 81 years old. Left lung mass PHYSICIAN: Dr. KELSEA Jernigan CONSENT: Written informed consent was obtained having explained the risks, benefits and alternatives in detail with the patient who accepted the risks and agreed to proceed. Laboratory review and clinical assessment was performed. CONSCIOUS SEDATION PROTOCOL: The Drugs used were: 1 mg Versed, IV., and 25 mcg Fentanyl, IV. The sedation time was: 20 minutes. Conscious sedation was started at 9:03 AM and terminated at 9:23 AM. The conscious sedation protocol was independently monitored. RADIATION DOSAGE (If Supplied By Facility): CTDIvol = ( 14 ) mGy, DLP = ( 283.8 ) mGycm Individualized dose optimization techniques were used for this CT. TECHNIQUE: The patient was placed in the supine position. A noncontrast CT was performed to localize the lesion in the peripheral aspect of the left lower lobe . The skin surface was prepped and draped in a sterile fashion. 1% lidocaine was used for local anesthesia. Using CT guidance, a 20-gauge coaxial biopsy device was advanced to the periphery of the lesion. A total of 5 core specimens were obtained. The specimens were placed in a formalin solution. A post procedure CT demonstrated no adverse sequelae or pneumothorax. The patient tolerated the procedure well without adverse event. A negative biopsy does not exclude malignancy. Further imaging or clinical followup based on patient condition and degree of clinical suspicion for malignancy. Suggest rebiopsy, if biopsy results do not match with clinical scenario. CT/Biopsy/Inj or Needle Placement IMPRESSION: 1. CT directed core needle biopsy of the left lower lobe pulmonary lesion using CT image guidance with image documentation as described. Pathology results are pending. 2. Conscious Sedation protocol utilized with independent monitoring. Electronically Signed: Yahir Healy MD at 9:56 EDT ,
--- NOTE | 2022-03-11 09:35 | RAD_ITS ---
STUDY: X-RAY CHEST REASON FOR EXAM: Female, 81 years old. Pneumothorax -- Immediately post lung biopsy TECHNIQUE: AP inspiration and expiration views. COMPARISON: Comparison is made with prior study dated 03/08/2022 FINDINGS: The patient is status post left lower lobe lung biopsy. No evidence of pneumothorax. Persistent pleural parenchymal changes at the left lung base. RAD/Chest Insp/Exp 2 View IMPRESSION: Status post left lower lobe lung biopsy. No evidence of pneumothorax. Electronically Signed: Yahir Healy MD at 9:50 EDT ,
[2022-03-11] MEDS: Pantoprazole Sodium 20 MG Tablet PO (11:13)
[2022-03-11] MEDS: Carvedilol 6.25 MG Tablet PO (11:13)
[2022-03-11] MEDS: SACUBITRIL/VALSARTAN 24/26 MG TABLET 1 EACH PO ×2 (11:13→21:58)
[2022-03-11] MEDS: Aspirin 81 MG TAB.CHEW PO (11:13)
[2022-03-11] MEDS: Insulin Lispro 100 UNIT/ML INSULN.PEN SC ×3 (11:15→21:55)
[2022-03-11 11:35] LABS: Bedside Glucose 245 mg/dL (74-106)
--- NOTE | 2022-03-11 12:54 | RAD_ITS ---
STUDY: X-RAY CHEST REASON FOR EXAM: Female, 81 years old. Pneumothorax -- 2 hours post lung biopsy TECHNIQUE: AP inspiration and expiration views. COMPARISON: Comparison is made with prior study done earlier today. FINDINGS: No evidence of pneumothorax on the delayed images. RAD/Chest Insp/Exp 2 View IMPRESSION: No evidence of pneumothorax on the delayed images. Electronically Signed: Yahir Healy MD at 12:54 EDT ,
[2022-03-11] MEDS: Albuterol 2.5 MG/3 ML VIAL.NEB. INHALATION (13:04)
--- NOTE | 2022-03-11 14:03 | CHAPLAIN ---
Type of Pastoral Visit _x__ Initial Visit ___ Follow-up Visit ___ On-call Visit ___ General Patient Visit ___ Spiritual Assessment ___ Family Conference ___ Bereavement ___ Rapid Response ___ Code Blue ___ Other (describe below) Pastoral Care Referral From _x__ Patient ___ Family ___ Nurse ___ Physician ___ Real Estate Legal Secretary ___ Consulting Services Associate ___ Other (describe below) Sacrament/Intervention _x__ Active listening ___ Anointing ___ Mormonism ___ Bereavement ___ Communion ___ Sandhya exploration ___ ___ Life review __x_ Prayer ___ Reconciliation ___ Sacrament of Sick ___ Supportive presence ___ Wedding ___ Other (describe below) Pastoral Comments met patient in previous admission just recently; pt is having a breathing treatment but stops it long enough to ask for prayer; pt asks that prayer be for her healing and a return to her normal life; no other needs
--- NOTE | 2022-03-11 14:10 | PN.HOSP_ITS ---
Subjective Subjective Patient seen and examined. She has no complaints this morning. She had the lung mass biopsy today. Review of systems otherwise negative. Objective Data Objective Data Vital Signs: Vital Signs Temp Pulse Resp BP Pulse Ox 97.6 F L 98 24 H 118/104 H 97 03/11/22 10:25 03/11/22 13:23 03/11/22 13:23 03/11/22 10:25 03/11/22 10:25 Oxygen Flow Rate (L/min) [4] 2 Oxygen Flow Rate (L/min) [3] 2 Oxygen Flow Rate (L/min) [2] 2 Oxygen Flow Rate (L/min) [1 ( 2 Initial Baseline)] Oxygen Flow Rate (L/min) 2 Oxygen Delivery Method [4] Nasal Cannula Oxygen Delivery Method [3] Nasal Cannula Oxygen Delivery Method [2] Nasal Cannula Oxygen Delivery Method [1 ( Nasal Cannula Initial Baseline)] Oxygen Delivery Method Nasal Cannula Weight: 94 lb 9.253 oz Body Mass Index (BMI) 13.9 Intake & Output: Intake and Output for Last 24 Hours 03/09/22 03/10/22 03/11/22 23:59 23:59 23:59 Intake Total 1560 / 1560 1055.5 / 1055.5 430 / 430 Output Total 300 / 300 0 / 0 400 / 400 Balance 1260 / 1260 1055.5 / 1055.5 30 / 30 Medical Nutrition Assessment Dietitian: Malnutrition Criteria Met Start: 03/09/22 11:05 Freq: Status: Active Protocol: Document 03/09/22 11:05 (Rec: 03/09/22 11:05 [id number]) Nutrition Malnutrition Evidence of Malnutrition Exists Yes Malnutrition (severe): Chronic Evidenced By Suboptimal Energy Intake ( Severe),Physical Changes ( Severe) Clinical Problem Chronic Disease or Condition Related Malnutrition Etiology severe, chronic malnutrition related to inadequate energy intake w/ increased energy needs due to pulmonary disease Signs/Symptoms as evidenced by estimated energy intake meeting <75% of estimated energy needs >3 months; severe muscle wasting/ fat loss evident per physical exam- depletion noted in orbital areas, temples, scapula, lower extremities; protrusion of clavicle, acromion process; BMI 14.9 Status Active Problem Recommendation Dietitian Recommendations/Changes will adjust diet to regular, no added salt given severe malnutrition; NO gluten restriction per pt; nepro 240mL and magic cup w/ lunch for additional calories/ protein if consumed. Lab / Micro Data Result Diagrams: 03/11/22 06:10 03/11/22 06:10 Labs: Laboratory Results - last 24 hr 03/10/22 11:05: Acid Fast Stain SEE PATHOLOGY REPORT, Miscellaneous Cytology SEE PATHOLOGY REPORT 03/10/22 16:14: POC Glucose 339 H 03/10/22 21:20: Vancomycin Trough 8.6 03/10/22 21:42: POC Glucose 338 H 03/11/22 06:10: WBC 10.0, RBC 3.04 L, Hgb 8.9 L, Hct 29.2 L, MCV 96.1, MCH 29.3, MCHC 30.5 L, RDW Std Deviation 50.9 H, RDW Coeff of Oly 14.5, Plt Count 153, MPV 10.4, Immature Gran % (Auto) 0.400, Neut % (Auto) 93.0 H, Lymph % (Auto) 3.6 L, [place] % (Auto) 2.9, Eos % (Auto) 0.0, Baso % (Auto) 0.1, Absolute Neuts (auto) 9.3 H, Absolute Lymphs (auto) 0.36 L, Nucleated RBC % 0 03/11/22 06:10: Sodium 141, Potassium 3.9, Chloride 107, Carbon Dioxide 29.0, Anion Gap 5, BUN 39 H, Creatinine 1.27 H, Estim Creat Clear Calc 23.93, Est GFR (MDRD) Af Amer 52 L, Est GFR (MDRD) Non-Af 43 L, BUN/Creatinine Ratio 30.7 H, Glucose 261 H, Calcium 7.8 L 03/11/22 06:10: PT 15.9 H, INR 1.3 03/11/22 06:39: POC Glucose 235 H 03/11/22 11:10: POC Glucose 245 H Micro: Microbiology 03/09/22 13:05 Sputum, Expectorated/Coughed Gram Stain - Final 03/09/22 13:05 Sputum, Expectorated/Coughed Respiratory Culture - Final Enterobacter aerogenes 03/09/22 12:15 Urine, Clean Catch Streptococcus pneumoniae Antigen (M - Final 03/09/22 12:15 Urine, Clean Catch Legionella Antigen - Final 03/08/22 16:51 Mucosa - Nose Respiratory Panel (PCR) - Final Radiography Diagnostic Testing: Radiology Impression Biopsy CT 03/11/22 09:30 IMPRESSION: 1. CT directed core needle biopsy of the left lower lobe pulmonary lesion using CT image guidance with image documentation as described. Pathology results are pending. 2. Conscious Sedation protocol utilized with independent monitoring. Electronically Signed: Yahir Healy MD at 9:56 EDT , Chest X-Ray 03/11/22 09:35 IMPRESSION: Status post left lower lobe lung biopsy. No evidence of pneumothorax. Electronically Signed: Yahir Healy MD at 9:50 EDT , Physical Exam Const alert, oriented x3 and no apparent distress Constitutional Narrative: anxious Exam Limitations: no limitations Nutritional Appearance: cachectic HEENT head/scalp atraumatic, moist oral mucous membranes, oropharynx normal and dentition normal Head and Scalp: normocephalic Eyes PERRL, EOMs intact bilaterally and conjunctivae normal Neck no lymphadenopathy, supple and no JVD Resp Resp Narrative: diminished breath sounds bibasally, few crackles bilaterally. No wheezes. on 2L of oxygen by nasal canula Cardio regular rate, regular rhythm, S1 normal heart sound, S2 normal heart sound and no murmurs GI normal to inspection, nondistended, normoactive bowel sounds, soft to palpation, non-tender and non-distended Extremity normal to inspection, full ROM and no clubbing, cyanosis or edema Peripheral Pulses: Yes pulses 2+ throughout Skin no rashes or lesions noted Neuro oriented x3, CN's II-XII intact bilaterally and moves all extremities Sensorium / Orientation: awake and alert Psych affect normal Assessment & Plan Assessment/Plan (1) Shortness of breath: (2) Acute exacerbation of chronic obstructive pulmonary disease: (3) Acute and chronic respiratory failure with hypercapnia: (4) Severe malnutrition: (5) Non-ST elevated myocardial infarction (non-STEMI): PLAN: #Nonstemi * Cardiology evaluated patient and recommends conservative management. * On aspirin. Continue Coumadin. 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 She was transferred to [facility] for possible CABG but she was deemed as needing medical therapy. * On low-dose beta-radha. #Acute hypoxic respiratory failure due to COPD exacerbation and probable pneumonia * on 2L of oxygen. * has an underlying lung lesion and is being worked up for cancer * pulmonology on board. * on breathing treatment with bronchodilators. On IV solumedrol * TB being ruled out, so patient in droplet isolation * on vancomycin and cefepime. * Had biopsy of the lung mass done today. Awaiting pathology results. * #History of DVT and PE * INR was 2 on admission. * CTA didnt show any evidence of PE * on coumadin. INR is therapeutic * Coumadin was held yesterday as she was having the biopsy done today. * will resume coumadin tomorrow * #HFrEF * has known EF of 15-20% from Echo done in January 2022. * On Coreg. Not on any diuretics. Not on statin due to intolerance. * #Paroxysmal afib; on coumadin and coreg. Target INR is 2-3. coumadin on hold todya as she had biopsy of lung mass #Left lung mass * thought to be malignant * being worked up with pulmonology * had CT guided biopsy of lung mass today. Await pathology * #Severe protein calorie malnutrition * BMI is only 14.9 * nutrition on board. * #DVT prophylaxis: on coumadin Code status: full code Charges/Coding Visit Charges Inpatient E&M: 22358 Subs Hosp L2
[2022-03-11] MEDS: guaiFENesin 10 ML UDC (200MG/10ML) 20 ML PO (16:47)
[2022-03-11] MEDS: Acetaminophen 325 MG Tablet 650 MG PO (16:47)
[2022-03-11 17:05] LABS: Bedside Glucose 321 mg/dL (74-106)
[2022-03-11] MEDS: Budesonide Respules 0.5 MG/2 ML AMPUL.NEB. INHALATION (19:03)
[2022-03-11 20:08] LABS: QNTFERON TB Mitogen Value 5.93 IU/mL (.); QNTFERON TB Nil Value 0 IU/mL (.); QNTFERON TB1+ Ag Value 0 IU/mL (.); QNTFERON TB2+ Ag Value 0.01 IU/mL (.)
--- NOTE | 2022-03-11 20:16 | PCM.PN.CARD ---
Subjective Subjective The patient was evaluated earlier this day. At that time she appeared to be without any acute cardiovascular complaints. She was subsequently going to be evaluated by radiology with CT scan guided pulmonary biopsy. Objective Data Vital Signs: Vital Signs Temp Pulse Resp BP Pulse Ox 97.7 F L 86 20 H 139/78 H 98 03/11/22 16:40 03/11/22 19:00 03/11/22 19:00 03/11/22 16:40 03/11/22 19:00 Oxygen Flow Rate (L/min) [4] 2 Oxygen Flow Rate (L/min) [3] 2 Oxygen Flow Rate (L/min) [2] 2 Oxygen Flow Rate (L/min) [1 ( 2 Initial Baseline)] Oxygen Flow Rate (L/min) 3 Oxygen Delivery Method [4] Nasal Cannula Oxygen Delivery Method [3] Nasal Cannula Oxygen Delivery Method [2] Nasal Cannula Oxygen Delivery Method [1 ( Nasal Cannula Initial Baseline)] Oxygen Delivery Method Nasal Cannula Weight: 94 lb 9.253 oz Body Mass Index (BMI) 13.9 Intake & Output: Intake and Output for Last 24 Hours 03/09/22 03/10/22 03/11/22 23:59 23:59 23:59 Intake Total 1560 / 1560 1055.5 / 1055.5 670 / 670 Output Total 300 / 300 0 / 0 400 / 400 Balance 1260 / 1260 1055.5 / 1055.5 270 / 270 Lab / Micro Data Result Diagrams: 03/11/22 06:10 03/11/22 06:10 Labs: Laboratory Results - last 24 hr 03/10/22 21:20: Vancomycin Trough 8.6 03/10/22 21:42: POC Glucose 338 H 03/11/22 06:10: WBC 10.0, RBC 3.04 L, Hgb 8.9 L, Hct 29.2 L, MCV 96.1, MCH 29.3, MCHC 30.5 L, RDW Std Deviation 50.9 H, RDW Coeff of Oly 14.5, Plt Count 153, MPV 10.4, Immature Gran % (Auto) 0.400, Neut % (Auto) 93.0 H, Lymph % (Auto) 3.6 L, [place] % (Auto) 2.9, Eos % (Auto) 0.0, Baso % (Auto) 0.1, Absolute Neuts (auto) 9.3 H, Absolute Lymphs (auto) 0.36 L, Nucleated RBC % 0 03/11/22 06:10: Sodium 141, Potassium 3.9, Chloride 107, Carbon Dioxide 29.0, Anion Gap 5, BUN 39 H, Creatinine 1.27 H, Estim Creat Clear Calc 23.93, Est GFR (MDRD) Af Amer 52 L, Est GFR (MDRD) Non-Af 43 L, BUN/Creatinine Ratio 30.7 H, Glucose 261 H, Calcium 7.8 L 03/11/22 06:10: PT 15.9 H, INR 1.3 03/11/22 06:39: POC Glucose 235 H 03/11/22 11:10: POC Glucose 245 H 03/11/22 16:36: POC Glucose 321 H Micro: Microbiology 03/09/22 13:05 Sputum, Expectorated/Coughed Gram Stain - Final 03/09/22 13:05 Sputum, Expectorated/Coughed Respiratory Culture - Final Enterobacter aerogenes Cardiology Labs/Tests 03/11/22 06:10: WBC 10.0, RBC 3.04 L, Hgb 8.9 L, Hct 29.2 L, MCV 96.1, MCH 29.3, MCHC 30.5 L, Plt Count 153, MPV 10.4, Immature Gran % (Auto) 0.400, Neut % (Auto) 93.0 H, Lymph % (Auto) 3.6 L, [place] % (Auto) 2.9, Eos % (Auto) 0.0, Baso % (Auto) 0.1, Absolute Neuts (auto) 9.3 H, Nucleated RBC % 0 03/11/22 06:10: Sodium 141, Potassium 3.9, Chloride 107, Carbon Dioxide 29.0, Anion Gap 5, BUN 39 H, Creatinine 1.27 H, Est GFR (MDRD) Af Amer 52 L, Est GFR (MDRD) Non-Af 43 L, BUN/Creatinine Ratio 30.7 H, Glucose 261 H, Calcium 7.8 L 03/11/22 06:10: PT 15.9 H, INR 1.3 Rhythm: Sinus rhythm Radiography Diagnostic Testing: Radiology Impression Biopsy CT 03/11/22 09:30 IMPRESSION: 1. CT directed core needle biopsy of the left lower lobe pulmonary lesion using CT image guidance with image documentation as described. Pathology results are pending. 2. Conscious Sedation protocol utilized with independent monitoring. Electronically Signed: Yahir Healy MD at 9:56 EDT , Chest X-Ray 03/11/22 09:35 IMPRESSION: Status post left lower lobe lung biopsy. No evidence of pneumothorax. Electronically Signed: Yahir Healy MD at 9:50 EDT , Physical Exam Narrative This is an thin frail and cachectic appearing 81-year-old white female. Const alert and oriented x3 Orientation / Consciousness: awake HEENT normocephalic and head/scalp atraumatic Eyes PERRL, EOMs intact bilaterally and conjunctivae normal Neck full ROM, supple and no JVD Resp Auscultation: rhonchi throughout and diminished lung sounds bilateral lower (Left greater than right) Cardio regular rhythm, S1 normal heart sound and S2 normal heart sound Rhythm: abnormal rhythm ectopic beats GI normal to inspection, nondistended, normoactive bowel sounds Extremity no pedal edema Skin no rashes or lesions noted Neuro oriented x3, moves all extremities, no focal motor deficits and no sensory deficits noted Psych mental status grossly normal Assessment & Plan Assessment/Plan (1) Non-ST elevated myocardial infarction (non-STEMI): PLAN: The patient has abnormal cardiac enzymes. She has recently undergone extensive noninvasive and invasive cardiovascular evaluation locally as well as advanced cardiovascular evaluation at [facility]. Based upon her overall status her cardiac enzymes appear compatible with a type II non-STEMI thought secondary to acute exacerbation of her underlying pulmonary disease process. From a cardiac standpoint she will continue medical management as best as possible as she has been deemed not a candidate for revascularization either percutaneously or surgically at the [facility]. (2) Atherosclerosis of coronary artery of [place] heart without angina pectoris: PLAN: She does have extensive CAD as noted. At the moment she will continue to be monitored. She will continue conservative medical management. (3) Cardiomyopathy: QUALIFIERS: Cardiomyopathy type: ischemic Qualified Code(s): I25.5 - Ischemic cardiomyopathy PLAN: She does have an underlying significant cardiomyopathy which is thought related to her underlying CAD status thus being ischemic. As she is not a candidate for revascularization she will continue conservative medical management. An attempt is being made to advance her medications as best as tolerated. This is included her beta-radha therapy and afterload reducing therapy. (4) CHF (congestive heart failure): PLAN: She does have underlying chronic systolic mediated CHF. She will need to continue medical therapy. This may include the need for diuretic therapy as well. (5) Atrial fibrillation: PLAN: At the moment she appears to be in sinus rhythm. She will continue rate control therapy as deemed appropriate. She is also been placed on anticoagulant therapy with warfarin/Coumadin. (6) HLD (hyperlipidemia): PLAN: She will continue her lipid-lowering therapy. (7) Benign essential HTN: PLAN: Her blood pressure will be monitored. She will continue medical therapy. (8) Acute exacerbation of chronic obstructive pulmonary disease: PLAN: She does have the appearance of an underlying acute on chronic obstructive COPD type of event. There is concerns of radiologic studies suggesting pneumonia as well as possible neoplasm. Her acid-fast bacilli reports were negative. She has subsequently been reported is undergoing her CT scan guided pulmonary biopsy. The results are pending. Addt'l Comments This note was generated using a voice recognition system and there may be incorrect words, spelling or punctuation that were not noted when reviewing the office note prior to saving. Procedure Criteria Type of Procedure Procedure Type: Elective Elective Risks - COVID COVID Risk Discussion: The surgeon/proceduralist and patient have discussed in detail the risk of exposure to and/or potential harm posed by the COVID-19 virus with having a surgery/procedure at this time versus the risk of delaying the surgery/procedure. It is not possible to know either the risk of delaying the surgery or procedure or chance of getting an infection with perfect accuracy, but a joint decision was made between the patient and the surgeon/proceduralist to proceed at this time with the scheduled surgery/procedure as indicated on the consent form.
[2022-03-11] MEDS: Atorvastatin Calcium 40 MG Tablet PO (21:57)
[2022-03-11] MEDS: LORazepam 1 MG Tablet PO (21:58)
[2022-03-11] MEDS: Carvedilol 12.5 MG Tablet PO (22:15)
[2022-03-11 22:26] LABS: Bedside Glucose 274 mg/dL (74-106)
[2022-03-12] VITALS (10 sets, daily range): BP systolic 147–162; BP diastolic 72–77; PULSE 68–86; RESP 18–20; TEMP 35.9–36.7; O2SAT 92–100
--- NOTE | 2022-03-12 06:12 | PN.CC_ITS ---
Assessment & Plan Assessment/Plan (1) Acute exacerbation of chronic obstructive pulmonary disease: PLAN: RECOMMENDATIONS: 1. Continue antimicrobials to complete 7 days of therapy. 2. Continue bronchodilators and steroids. Plan for prednisone taper at discharge. 3. Wean supplemental oxygen for saturations greater than 90%. 4. Initiate Lovenox bridge to Coumadin. 5. Perform walking oximetry study prior to consideration for discharge home. 6. The patient should follow-up in the pulmonary medicine at the end of next week to review biopsy results. 7. Will sign off at this time. Please call with any additional questions. IMPRESSIONS: 1. COPD with exacerbation While the patient does have reported COPD, according to Dr. Cuello's last pulmonary medicine note, it was only stage I mild obstructive lung disease. Pulmonary function studies were ordered at that time but have yet to be completed. While it is certainly plausible that the patient's underlying obstructive lung disease is contributing to her dyspnea, I cannot discount the impact that her underlying ischemic cardiomyopathy is contributing to her symptoms as well. The patient has been ruled out for TB. She does have an underlying Enterobacter pneumonia, for which I would recommend that antimicrobials be continued for 7 total days. I would also recommend a p rednisone taper at discharge. Continue to wean supplemental oxygen as tolerated. Perform walking oximetry study prior to consideration for discharge home. The patient should follow-up in the pulmonary medicine clinic next week to discuss her CT-guided lung biopsy results. 2. Cavitary lung lesion/lung mass The patient's left-sided lung mass was known from her previous hospitalization. According to the patient, she was supposed to have an outpatient PET scan and follow-up with a [facility] provider for further work-up. Nevertheless, the patient has been followed in the past by Dr. Cuello the pulmonary medicine clinic. The patient was able to have her CT-guided lung biopsy completed on March 11. Pathology results are pending. 3. Non-ST segment elevation PA The patient has known multivessel coronary disease, but was not deemed to be a good surgical candidate. Therefore, plan to continue medical management per cardiology recommendations. She was last documented to have an ejection fraction of 15 to 20% in January 2022. 4. History of venous thromboembolic disease The patient can be restarted on her home Coumadin and initiated on a Lovenox bridge until her INR is once again therapeutic. This note was generated with Dragon dictation software. It may contain incorrect words, spelling, and punctuation that were not noted in checking the note before signing. Subjective Subjective The patient was seen and examined at the bedside this morning. Events from the last 24 hours have been reviewed. The patient is currently afebrile, hemodynamically stable and maintaining appropriate oxygen saturations on 3 L/min via nasal cannula. She is currently documented to be overall net +3 L for the hospitalization. The patient underwent successful CT-guided lung biopsy yesterday of her left-sided lung mass. The patient does continue to report the presence of shortness of breath with exertion. I explained to her that her biopsy results will take several days to be finalized and that we will review those for her upon her follow-up pulmonary office visit next week. Objective Data Objective Data The patient's most recent lab work, culture data and imaging studies have all been personally reviewed. Sputum for AFB x3 pending. Sputum culture was positive for Enterobacter, which was pansensitive. Sputum for AFB x3 were negative. Vital Signs: Vital Signs Temp Pulse Resp BP Pulse Ox 96.7 F L 69 20 H 147/72 H 100 03/12/22 03:48 03/12/22 03:48 03/12/22 03:48 03/12/22 03:48 03/12/22 03:48 Oxygen Flow Rate (L/min) [4] 2 Oxygen Flow Rate (L/min) [3] 2 Oxygen Flow Rate (L/min) [2] 2 Oxygen Flow Rate (L/min) [1 ( 2 Initial Baseline)] Oxygen Flow Rate (L/min) 3 Oxygen Delivery Method [4] Nasal Cannula Oxygen Delivery Method [3] Nasal Cannula Oxygen Delivery Method [2] Nasal Cannula Oxygen Delivery Method [1 ( Nasal Cannula Initial Baseline)] Oxygen Delivery Method Nasal Cannula Weight: 43.8 kg Body Mass Index (BMI) 13.9 Intake & Output: Intake and Output for Last 24 Hours 03/10/22 03/11/22 03/12/22 23:59 23:59 23:59 Intake Total 1055.5 / 1055.5 770 / 820 50 / 50 Output Total 0 / 0 400 / 400 0 / 0 Balance 1055.5 / 1055.5 370 / 420 50 / 50 Medical Nutrition Assessment Dietitian: Malnutrition Criteria Met Start: 05/17/22 11:05 Freq: Status: Active Protocol: Document 03/09/22 11:05 AG (Rec: 03/09/22 11:05 [id number]) Nutrition Malnutrition Evidence of Malnutrition Exists Yes Malnutrition (severe): Chronic Evidenced By Suboptimal Energy Intake ( Severe),Physical Changes ( Severe) Clinical Problem Chronic Disease or Condition Related Malnutrition Etiology severe, chronic malnutrition related to inadequate energy intake w/ increased energy needs due to pulmonary disease Signs/Symptoms as evidenced by estimated energy intake meeting <75% of estimated energy needs >3 months; severe muscle wasting/ fat loss evident per physical exam- depletion noted in orbital areas, temples, scapula, lower extremities; protrusion of clavicle, acromion process; BMI 14.9 Status Active Problem Recommendation Dietitian Recommendations/Changes will adjust diet to regular, no added salt given severe malnutrition; NO gluten restriction per pt; nepro 240mL and magic cup w/ lunch for additional calories/ protein if consumed. Lab / Micro Data Result Diagrams: 03/12/22 05:40 03/12/22 05:40 Labs: Laboratory Results - last 24 hr 03/11/22 06:10: WBC 10.0, RBC 3.04 L, Hgb 8.9 L, Hct 29.2 L, MCV 96.1, MCH 29.3, MCHC 30.5 L, RDW Std Deviation 50.9 H, RDW Coeff of Oly 14.5, Plt Count 153, MPV 10.4, Immature Gran % (Auto) 0.400, Neut % (Auto) 93.0 H, Lymph % (Auto) 3.6 L, [place] % (Auto) 2.9, Eos % (Auto) 0.0, Baso % (Auto) 0.1, Absolute Neuts (auto) 9.3 H, Absolute Lymphs (auto) 0.36 L, Nucleated RBC % 0 03/11/22 06:10: Sodium 141, Potassium 3.9, Chloride 107, Carbon Dioxide 29.0, Anion Gap 5, BUN 39 H, Creatinine 1.27 H, Estim Creat Clear Calc 23.93, Est GFR (MDRD) Af Amer 52 L, Est GFR (MDRD) Non-Af 43 L, BUN/Creatinine Ratio 30.7 H, Glucose 261 H, Calcium 7.8 L 03/11/22 06:10: PT 15.9 H, INR 1.3 03/11/22 06:39: POC Glucose 235 H 03/11/22 11:10: POC Glucose 245 H 03/11/22 16:36: POC Glucose 321 H 03/11/22 21:52: POC Glucose 274 H Micro: Microbiology 03/09/22 13:05 Sputum, Expectorated/Coughed Gram Stain - Final 03/09/22 13:05 Sputum, Expectorated/Coughed Respiratory Culture - Final Enterobacter aerogenes 03/09/22 12:15 Urine, Clean Catch Streptococcus pneumoniae Antigen (M - Final 03/09/22 12:15 Urine, Clean Catch Legionella Antigen - Final 03/08/22 16:51 Mucosa - Nose Respiratory Panel (PCR) - Final Radiography Diagnostic Testing: Radiology Impression Biopsy CT 03/11/22 09:30 IMPRESSION: 1. CT directed core needle biopsy of the left lower lobe pulmonary lesion using CT image guidance with image documentation as described. Pathology results are pending. 2. Conscious Sedation protocol utilized with independent monitoring. Electronically Signed: Yahir Healy MD at 9:56 EDT , Chest X-Ray 03/11/22 09:35 IMPRESSION: Status post left lower lobe lung biopsy. No evidence of pneumothorax. Electronically Signed: Yahir Healy MD at 9:50 EDT , Physical Exam Const alert and no apparent distress General Appearance: cooperative and frail Nutritional Appearance: cachectic HEENT normocephalic, head/scalp atraumatic and moist oral mucous membranes General Ear: hearing grossly impaired Eyes PERRL, EOMs intact bilaterally and conjunctivae normal Neck supple General: trachea midline Chest inspection of chest normal Resp Auscultation: diminished lung sounds; Negative for rales, rhonchi or wheezes Cardio S1 normal heart sound and S2 normal heart sound Rhythm: abnormal rhythm GI normal to inspection, nondistended, normoactive bowel sounds Extremity no clubbing, cyanosis or edema Skin no rashes or lesions noted Neuro CN's II-XII intact bilaterally, moves all extremities and no focal motor deficits Psych cooperative and affect normal Charges/Coding Visit Charges Inpatient E&M: 58158 Subs Hosp L2
[2022-03-12 06:21] LABS: Absolute Lymphocyte Count 0.35 X10^3/uL (0.83-4.51); Absolute Neutrophil Count 7.2 X10^3/uL (2.0-7.7); Hemoglobin 9.1 g/dL (12.0-15.0); Lymphocyte # 0.35 X10^3/ul (0.83-4.51); Lymphocyte % 4.5 % (19-41); Mean Corp Hgb Conc 30.3 g/dL (32-36); Mean Corpuscular Hgb 29.8 pg (27.0-32.0); Mean Corpuscular Volume 98.4 fL (81-99); Mean Platelet Vol. 10.8 fl (6.2-12.0); Monocyte# 0.25 X10^3/uL; Monocyte% 3.2 % (0-10); NRBC Flagged by Analyzer 0 % (0-5); Neutrophil # 7.17 X10^3/uL (2.7-7.7); Neutrophil % 91.9 % (47-70); POSITIVE DIFFERENTIAL YES; Platelet Count 160 K/mm3 (150-450); RBC Distribution Width CV 14.1 % (11.6-14.6); RBC Distribution Width SD 50.9 fl (35.1-43.9); Red Blood Count 3.05 M/mm3 (4.2-5.4); White Blood Count 7.8 K/mm3 (4.4-11.0)
[2022-03-12 06:24] LABS: Differential Indicated SCAN CRITERIA MET
[2022-03-12] MEDS: Insulin Lispro 100 UNIT/ML INSULN.PEN SC ×4 (06:32→21:38)
[2022-03-12] MEDS: 0.9% Saline Lock 10 ML Syringe IV ×2 (06:34→21:46)
[2022-03-12 06:46] LABS: Bedside Glucose 241 mg/dL (74-106)
[2022-03-12 06:48] LABS: Anion Gap 5 (5-15); BUN 41 mg/dL (7-18); BUN/Creat Ratio 33.6 RATIO (10-20); Calcium,Total 7.9 mg/dL (8.5-10.1); Chloride 108 mmol/L (98-107); Creatinine, Serum 1.22 mg/dL (0.55-1.02); EST Glomerular Filtration Rate 45 mL/min (>60); Est Glom Filt Rate - Afr Amer 55 mL/min (>60); Estimated Creatinine Clearance 25.43 ml/min; Glucose 247 mg/dL (74-106); Potassium 3.8 mmol/L (3.5-5.1); Sodium Level 141 mmol/L (136-145)
--- NOTE | 2022-03-12 08:50 | PN.CARD_ITS ---
Subjective Subjective The patient is awake and alert. She denies ongoing chest discomfort. She states her main concern continues to be her shortness of breath/dyspnea both at rest and with any activity. Objective Data Vital Signs: Vital Signs Temp Pulse Resp BP Pulse Ox 96.7 F L 79 20 H 147/72 H 100 03/12/22 03:48 03/12/22 07:00 03/12/22 03:48 03/12/22 03:48 03/12/22 03:48 Oxygen Flow Rate (L/min) [4] 2 Oxygen Flow Rate (L/min) [3] 2 Oxygen Flow Rate (L/min) [2] 2 Oxygen Flow Rate (L/min) [1 ( 2 Initial Baseline)] Oxygen Flow Rate (L/min) 3 Oxygen Delivery Method [4] Nasal Cannula Oxygen Delivery Method [3] Nasal Cannula Oxygen Delivery Method [2] Nasal Cannula Oxygen Delivery Method [1 ( Nasal Cannula Initial Baseline)] Oxygen Delivery Method Nasal Cannula Weight: 96 lb 8.999 oz Body Mass Index (BMI) 13.9 Intake & Output: Intake and Output for Last 24 Hours 03/10/22 03/11/22 03/12/22 23:59 23:59 23:59 Intake Total 1055.5 / 1055.5 770 / 820 100 / 100 Output Total 0 / 0 400 / 400 0 / 0 Balance 1055.5 / 1055.5 370 / 420 100 / 100 Lab / Micro Data Result Diagrams: 03/12/22 05:40 03/12/22 05:40 Labs: Laboratory Results - last 24 hr 03/11/22 11:10: POC Glucose 245 H 03/11/22 16:36: POC Glucose 321 H 03/11/22 21:52: POC Glucose 274 H 03/12/22 05:40: WBC 7.8, RBC 3.05 L, Hgb 9.1 L, Hct 30.0 L, MCV 98.4, MCH 29.8, MCHC 30.3 L, RDW Std Deviation 50.9 H, RDW Coeff of Oly 14.1, Plt Count 160, MPV 10.8, Immature Gran % (Auto) 0.400, Neut % (Auto) 91.9 H, Lymph % (Auto) 4.5 L, [place] % (Auto) 3.2, Eos % (Auto) 0.0, Baso % (Auto) 0.0, Absolute Neuts (auto) 7.2, Absolute Lymphs (auto) 0.35 L, Nucleated RBC % 0 03/12/22 05:40: Sodium 141, Potassium 3.8, Chloride 108 H, Carbon Dioxide 28.0, Anion Gap 5, BUN 41 H, Creatinine 1.22 H, Estim Creat Clear Calc 25.43, Est GFR (MDRD) Af Amer 55 L, Est GFR (MDRD) Non-Af 45 L, BUN/Creatinine Ratio 33.6 H, G lucose 247 H, Calcium 7.9 L 03/12/22 06:31: POC Glucose 241 H Micro: Microbiology 03/09/22 13:05 Sputum, Expectorated/Coughed Gram Stain - Final 03/09/22 13:05 Sputum, Expectorated/Coughed Respiratory Culture - Final Enterobacter aerogenes Cardiology Labs/Tests 03/12/22 05:40: WBC 7.8, RBC 3.05 L, Hgb 9.1 L, Hct 30.0 L, MCV 98.4, MCH 29.8, MCHC 30.3 L, Plt Count 160, MPV 10.8, Immature Gran % (Auto) 0.400, Neut % (Auto) 91.9 H, Lymph % (Auto) 4.5 L, [place] % (Auto) 3.2, Eos % (Auto) 0.0, Baso % (Auto) 0.0, Absolute Neuts (auto) 7.2, Nucleated RBC % 0 03/12/22 05:40: Sodium 141, Potassium 3.8, Chloride 108 H, Carbon Dioxide 28.0, Anion Gap 5, BUN 41 H, Creatinine 1.22 H, Est GFR (MDRD) Af Amer 55 L, Est GFR (MDRD) Non-Af 45 L, BUN/Creatinine Ratio 33.6 H, Glucose 247 H, Calcium 7.9 L Rhythm: Sinus rhythm Radiography Diagnostic Testing: Radiology Impression Biopsy CT 03/11/22 09:30 IMPRESSION: 1. CT directed core needle biopsy of the left lower lobe pulmonary lesion using CT image guidance with image documentation as described. Pathology results are pending. 2. Conscious Sedation protocol utilized with independent monitoring. Electronically Signed: Yahir Healy MD at 9:56 EDT , Chest X-Ray 03/11/22 09:35 IMPRESSION: Status post left lower lobe lung biopsy. No evidence of pneumothorax. Electronically Signed: Yahir Healy MD at 9:50 EDT , Physical Exam Narrative This is an thin frail and cachectic appearing 81-year-old white female. Const alert and oriented x3 Orientation / Consciousness: awake HEENT normocephalic and head/scalp atraumatic Eyes PERRL, EOMs intact bilaterally and conjunctivae normal Neck full ROM, supple and no JVD Resp Auscultation: rhonchi throughout and diminished lung sounds bilateral lower (Left greater than right) Cardio regular rhythm, S1 normal heart sound and S2 normal heart sound Rhythm: abnormal rhythm ectopic beats GI normal to inspection, nondistended, normoactive bowel sounds Extremity no pedal edema Skin no rashes or lesions noted Neuro oriented x3, moves all extremities, no focal motor deficits and no sensory deficits noted Psych mental status grossly normal Assessment & Plan Assessment/Plan (1) Non-ST elevated myocardial infarction (non-STEMI): PLAN: The patient has abnormal cardiac enzymes. She has recently undergone extensive noninvasive and invasive cardiovascular evaluation locally as well as advanced cardiovascular evaluation at [facility]. Based upon her overall status her cardiac enzymes appear compatible with a type II non-STEMI thought secondary to acute exacerbation of her underlying pulmonary disease process. From a cardiac standpoint she will continue medical management as best as possible as she has been deemed not a candidate for revascularization either percutaneously or surgically at the [facility]. (2) Atherosclerosis of coronary artery of [place] heart without angina pectoris: PLAN: She does have extensive CAD as noted. At the moment she will continue to be monitored. She will continue conservative medical management. (3) Cardiomyopathy: QUALIFIERS: Cardiomyopathy type: ischemic Qualified Code(s): I25.5 - Ischemic cardiomyopathy PLAN: She does have an underlying significant cardiomyopathy which is thought related to her underlying CAD status thus being ischemic. As she is not a candidate for revascularization she will continue conservative medical management. Her beta-radha dose has been advanced. If she appears to tolerate her medication adjustment with respect to her beta- blockers then perhaps her afterload reducing agents with respect to her Entresto can be advanced as well. (4) CHF (congestive heart failure): PLAN: She does have underlying chronic systolic mediated CHF. She will need to continue medical therapy. She has not required continuous diuretic therapy. This could change depending upon her clinical course and findings. (5) Atrial fibrillation: PLAN: At the moment she appears to be in sinus rhythm. Her beta-radha dose has been advanced. She is also been placed on anticoagulant therapy with warfarin/Coumadin. (6) HLD (hyperlipidemia): PLAN: She will continue her lipid-lowering therapy. (7) Benign essential HTN: PLAN: Her blood pressure will be monitored. She will continue medical therapy. (8) Acute exacerbation of chronic obstructive pulmonary disease: PLAN: She does have the appearance of an underlying acute on chronic obstructive COPD type of event. There is concerns of radiologic studies suggesting pneumonia as well as possible neoplasm. Her acid-fast bacilli reports were negative. Her CTs guided scan biopsy results are pending at this time. Addt'l Comments Overall, from a cardiovascular standpoint, she will continue conservative cardiovascular medical therapy with adjustment of her medications as needed and as tolerated. She will continue noncardiovascular evaluation of her underlying pulmonary disease process by her other physicians. This note was generated using a voice recognition system and there may be incorrect words, spelling or punctuation that were not noted when reviewing the office note prior to saving.
[2022-03-12] MEDS: guaiFENesin 10 ML UDC (200MG/10ML) 20 ML PO (08:52)
[2022-03-12] MEDS: Acetaminophen 325 MG Tablet 650 MG PO (08:52)
--- NOTE | 2022-03-12 10:06 | CASEMGMT ---
Addendum entered by Eden Rubin 03/12/22 14:31: Per [facility] in TCU, precert was started before noon today so she may get precert later today or over the weekend. Pt is updated on all, voices understanding and requests that this RN CM call her daughter, Brenda, to update on all also. Call to Brenda, updated and all questions answered. Pt/daughter voice no further questions/concerns/needs. Green sheet on chart, if precert obtained. Génesis CHAPA CM Original Note: Per therapy, pt is agreeable to TCU only for short term rehab. This RN CM to room and pt states the same to this RN CM. Copy of insurance card obtained from pt and copied. Copy faxed to registration and placed on chart. Call to [facility] in TCU and they do have a bed available and can take pt. Radha is starting precert. Dr. Dk lizama. CM to follow. Génesis CHAPA CM
[2022-03-12] MEDS: Aspirin 81 MG TAB.CHEW PO (10:22)
[2022-03-12] MEDS: Loperamide 2 MG Capsule PO (10:22)
[2022-03-12] MEDS: Carvedilol 12.5 MG Tablet PO ×2 (10:22→21:42)
[2022-03-12] MEDS: SACUBITRIL/VALSARTAN 24/26 MG TABLET 1 EACH PO ×2 (10:22→21:42)
[2022-03-12] MEDS: Pantoprazole Sodium 20 MG Tablet PO (10:22)
[2022-03-12 11:19] LABS: QNTIFERON TB Positive Criteria Negative (Negative)
[2022-03-12 11:50] LABS: Bedside Glucose 256 mg/dL (74-106)
[2022-03-12] MEDS: Enoxaparin 60 MG/0.6 ML Syringe SC (11:55)
--- NOTE | 2022-03-12 14:23 | PN.HOSP_ITS ---
Subjective Subjective Patient seen and examined. She complained of feeling weak. She still complains of feeling short of breath. She denies any chest pain, abdominal pain, nausea or vomiting. Review of systems is otherwise negative. Objective Data Objective Data Vital Signs: Vital Signs Temp Pulse Resp BP Pulse Ox 97.5 F L 72 20 H 162/77 H 92 03/12/22 10:15 03/12/22 10:15 03/12/22 10:15 03/12/22 10:15 03/12/22 10:35 Oxygen Flow Rate (L/min) [4] 2 Oxygen Flow Rate (L/min) [3] 2 Oxygen Flow Rate (L/min) [2] 2 Oxygen Flow Rate (L/min) [1 ( 2 Initial Baseline)] Oxygen Flow Rate (L/min) 2 Oxygen Delivery Method [4] Nasal Cannula Oxygen Delivery Method [3] Nasal Cannula Oxygen Delivery Method [2] Nasal Cannula Oxygen Delivery Method [1 ( Nasal Cannula Initial Baseline)] Oxygen Delivery Method Nasal Cannula Weight: 96 lb 8.999 oz Body Mass Index (BMI) 13.9 Intake & Output: Intake and Output for Last 24 Hours 03/10/22 03/11/22 03/12/22 23:59 23:59 23:59 Intake Total 1055.5 / 1055.5 770 / 820 340 / 340 Output Total 0 / 0 400 / 400 0 / 0 Balance 1055.5 / 1055.5 370 / 420 340 / 340 Medical Nutrition Assessment Dietitian: Malnutrition Criteria Met Start: 03/09/22 11:05 Freq: Status: Active Protocol: Document 03/09/22 11:05 (Rec: 03/09/22 11:05 [id number]) Nutrition Malnutrition Evidence of Malnutrition Exists Yes Malnutrition (severe): Chronic Evidenced By Suboptimal Energy Intake ( Severe),Physical Changes ( Severe) Clinical Problem Chronic Disease or Condition Related Malnutrition Etiology severe, chronic malnutrition related to inadequate energy intake w/ increased energy needs due to pulmonary disease Signs/Symptoms as evidenced by estimated energy intake meeting <75% of estimated energy needs >3 months; severe muscle wasting/ fat loss evident per physical exam- depletion noted in orbital areas, temples, scapula, lower extremities; protrusion of clavicle, acromion process; BMI 14.9 Status Active Problem Recommendation Dietitian Recommendations/Changes will adjust diet to regular, no added salt given severe malnutrition; NO gluten restriction per pt; nepro 240mL and magic cup w/ lunch for additional calories/ protein if consumed. Lab / Micro Data Result Diagrams: 03/12/22 05:40 03/12/22 05:40 Labs: Laboratory Results - last 24 hr 03/09/22 12:50: TB Test (QFT) Nil 0, TB Test (QFT) Mitogen 5.93, TB Test (QFT) Ag 1 0, TB Test (QFT) Ag 2 0.01, TB Test (QFT) Comment, TB Positive Criteria Negative 03/11/22 16:36: POC Glucose 321 H 03/11/22 21:52: POC Glucose 274 H 03/12/22 05:40: WBC 7.8, RBC 3.05 L, Hgb 9.1 L, Hct 30.0 L, MCV 98.4, MCH 29.8, MCHC 30.3 L, RDW Std Deviation 50.9 H, RDW Coeff of Oly 14.1, Plt Count 160, MPV 10.8, Immature Gran % (Auto) 0.400, Neut % (Auto) 91.9 H, Lymph % (Auto) 4.5 L, [place] % (Auto) 3.2, Eos % (Auto) 0.0, Baso % (Auto) 0.0, Absolute Neuts (auto) 7.2, Absolute Lymphs (auto) 0.35 L, Nucleated RBC % 0 03/12/22 05:40: Sodium 141, Potassium 3.8, Chloride 108 H, Carbon Dioxide 28.0, Anion Gap 5, BUN 41 H, Creatinine 1.22 H, Estim Creat Clear Calc 25.43, Est GFR (MDRD) Af Amer 55 L, Est GFR (MDRD) Non-Af 45 L, BUN/Creatinine Ratio 33.6 H, Glucose 247 H, Calcium 7.9 L 03/12/22 06:31: POC Glucose 241 H 03/12/22 11:42: POC Glucose 256 H Micro: Microbiology 03/09/22 13:05 Sputum, Expectorated/Coughed Gram Stain - Final 03/09/22 13:05 Sputum, Expectorated/Coughed Respiratory Culture - Final Enterobacter aerogenes 03/09/22 12:15 Urine, Clean Catch Streptococcus pneumoniae Antigen (M - Final 03/09/22 12:15 Urine, Clean Catch Legionella Antigen - Final 03/08/22 16:51 Mucosa - Nose Respiratory Panel (PCR) - Final Radiography Diagnostic Testing: Radiology Impression Chest X-Ray 03/11/22 12:54 IMPRESSION: No evidence of pneumothorax on the delayed images. Electronically Signed: Yahir Healy MD at 12:54 EDT , Physical Exam Narrative Const alert, oriented x3 and no apparent distress Constitutional Narrative: anxious Exam Limitations: no limitations Nutritional Appearance: cachectic HEENT head/scalp atraumatic, moist oral mucous membranes, oropharynx normal and dentition normal Head and Scalp: normocephalic Eyes PERRL, EOMs intact bilaterally and conjunctivae normal Neck no lymphadenopathy, supple and no JVD Resp Resp Narrative: diminished breath sounds bibasally, few crackles bilaterally. No wheezes. Still on 2L of oxygen by nasal canula Cardio regular rate, regular rhythm, S1 normal heart sound, S2 normal heart sound and no murmurs GI normal to inspection, nondistended, normoactive bowel sounds, soft to palpation, non-tender and non-distended Extremity normal to inspection, full ROM and no clubbing, cyanosis or edema Peripheral Pulses: Yes pulses 2+ throughout Skin no rashes or lesions noted Neuro oriented x3, CN's II-XII intact bilaterally and moves all extremities Sensorium / Orientation: awake and alert Psych affect normal Assessment & Plan Assessment/Plan (1) Shortness of breath: (2) Acute exacerbation of chronic obstructive pulmonary disease: (3) Acute and chronic respiratory failure with hypercapnia: (4) Severe malnutrition: (5) Non-ST elevated myocardial infarction (non-STEMI): PLAN: #Nonstemi * Cardiology evaluated patient and recommends conservative management. * On aspirin. Continue Coumadin. 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 She was transferred to [facility] for possible CABG but she was deemed as needing medical therapy. * On low-dose beta-radha. #Acute hypoxic respiratory failure due to COPD exacerbation and gram negative community pneumonia * on 2L of oxygen. * has an underlying lung lesion and is being worked up for cancer * pulmonology on board. * on breathing treatment with bronchodilators. On IV solumedrol * TB screen pending * had biopsy of lung mass done yesterday; pathology results pending. * sputum culture growing Enterobacter aerogenes. * * #History of DVT and PE * CTA didn't show any evidence of PE * on coumadin. INR is therapeutic * resume coumadin today. * * #HFrEF * has known EF of 15-20% from Echo done in January 2022. * On Coreg. Not on any diuretics. Not on statin due to intolerance. * #Paroxysmal afib; on coumadin and coreg. Target INR is 2-3. resume coumadin whi ch was held for biopsy #Left lung mass * thought to be malignant * being worked up with pulmonology * had CT guided biopsy of lung mass yesterday. Await pathology * #Severe protein calorie malnutrition * BMI is only 14.9 * nutrition on board. * #DVT prophylaxis: on coumadin Code status: full code Disposition; * plan was to dc patient home today as she was insistent on only going home with home PT/OT, and adamantly refused rehab placement. * patient after being counseled about how frail and weak she was, and her high chance of readmission, it would be advisable for her to go to SNF for a short period for rehab. * Patient now agreeable to going to TCU. Precert initiated. Charges/Coding Visit Charges Inpatient E&M: 92579 Subs Hosp L2
--- NOTE | 2022-03-12 14:52 | PN.ID_ITS ---
Physical Exam Narrative Sleeping, no fever Const no apparent distress Resp Auscultation: diminished lung sounds Cardio regular rate and regular rhythm GI soft to palpation, non-tender and non-distended Skin no rashes or lesions noted ID ID: Route of nutrition/ use of supplements: [] Nutritional Intake: [] IV Site: [] Crane Catheter: [] Assessment & Plan Assessment/Plan (1) Acute respiratory failure with hypoxia: (2) Pneumonia: PLAN: New R sided lower lobe cavitary pneumonia seen on CT, not there in 01/2022 during recent admit. 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 No h/o treatment for TB. Does have weight loss, undergoing workup for suspected malignancy in [facility]. Outpt PET was planned. Recent admit here then t roni to [facility]; will request records from that stay. MRSA pcr was neg. Will continue cefepime; day 5. Plan on 6 or 7 days of abx. Sputum with enterobacter. She reports covid vaccine x3. Neg quantiferon. Sputum AFB x3 smear neg, out of isolation. If bronch, biopsy, or thoracentesis is done, would send AFB. Will follow
[2022-03-12 15:37] LABS: International Normalized Ratio 1.3; Prothrombin Time (Protime)PT. 16.1 SECONDS (11.7-14.9)
--- NOTE | 2022-03-12 15:40 | DS.PCM_ITS ---
Providers Date of Admission: 03/08/22 Primary Care Physician: Dr. Yudith Rosales DO Consultations 03/08/22 17:55 Consult: Infectious Disease Routine Consulting Provider: J Carlos Scherer Reason for Consult: ? Cavitary PNA, no WBC elevation or L shift, afebrile EMERGENT Consult: No MD Notified: Yes Date Notified: 03/08/22 Time Notified: 18:00 Method of Notification: Text 03/08/22 20:12 Consult: Cardiology Routine Consulting Provider: Luis Prescott Reason for Consult: Rising trop, suspect demand, recent CC eval multivessel, rec med management EMERGENT Consult: No MD Notified: Yes Date Notified: 03/09/22 Time Notified: 07:00 Method of Notification: Dr. Mauricio persaud send text 03/09/22 10:24 Consult: Table Games Shift Manager / Pulmonary Medicine Routine Consulting Provider: Pulmonary Medicine [facility] Reason for Consult: dyspnea, new cavitary pneumonia EMERGENT Consult: No MD Notified: Yes Date Notified: 03/09/22 Time Notified: 10:29 Method of Notification: Text Reason For Visit: COPD EXACERBATION / ELEVATED TROP Diagnosis Discharge Diagnosis (1) Acute respiratory failure with hypoxia: Status: Acute Code(s): J96.01 - Acute respiratory failure with hypoxia (2) Pneumonia: Status: Acute Code(s): J18.9 - Pneumonia, unspecified organism (3) Acute exacerbation of chronic obstructive pulmonary disease: Status: Chronic Code(s): J44.1 - Chronic obstructive pulmonary disease with (acute) exacerbation (4) Lung mass: Status: Acute Code(s): R91.8 - Other nonspecific abnormal finding of lung field Medications at Discharge Home Medications omeprazole 20 mg PO DAILY 12/30/14 albuterol sulfate 2 puff INHALATION Q4H PRN PRN #2 inhaler 04/14/20 tiotropium bromide 2.5 mcg/actuation mist for inhalation 1 puff INHALATION DAILY #4 g 07/29/20 Dulera 2 inh INHALATION BID 03/08/22 aspirin 81 mg PO DAILY 03/08/22 atorvastatin 40 mg PO QHS 03/08/22 enoxaparin 40 mg SUBCUT DAILY 03/08/22 warfarin 2 mg PO MOWETHFR 03/08/22 warfarin 4 mg PO SUTUSA 03/08/22 carvedilol 12.5 mg PO BID #60 tab 03/13/22 sacubitril-valsartan [Entresto] 1 tab PO BID #60 tab 03/13/22 Hospital Course Operations None Procedures None Summary of Care Provided Minutes Spent on Discharge: 50 Hospital Course: Patient is an 81-year-old female with an extensive past medical history as outlined was admitted through the ED on 03/08/2022 with a complaint of worsening shortness of breath. Patient was being evaluated on outpatient basis for left lung mass#GERD: On PPI thought to be due to cancer and had been following up at the [facility]. She had been recently admitted and discharged on 02/24/2022 after being evaluated for acute hypoxic respiratory failure due to acute CHF exacerbation and left-sided pleural effusion. She had also had elevated cardiac enzymes during that admission and cardiac cath showed multivessel disease and to echo showed EF of 15 to 20%. She was subsequently transferred to [facility] for evaluation for CABG but she was not felt to be an appropriate candidate for this and was discharged home from [facility] on 02/27/2022 with medical management. His shortness of breath however worsened at home so she came into the ED where chest x-ray showed parenchymal changes in the left lung base. She was admitted and managed for acute on chronic combined hypoxic and hypercapnic respiratory failure which was thought to be multifactorial, likely due to acute on chronic COPD exacerbation as well as probable heart failure and underlying lung lesion. She was placed on IV Solu-Medrol and pulmonology was consulted. She was also diuresed with IV Lasix. Cardiology and pulmonology were consulted. Sputum cultures were positive for Enterobacter aerogenes and so she was treated for gram-negative pneumonia and placed on IV antibiotics. ID was also consulted as there was concern for TB and she had test for TB ordered with sputum for AFBs. Sputum for AFBs x3 and QuantiFERON were all negative. Patient was treated with cefepime and completed about 6 days of antibiotics. Patient was initially reluctant to go to a fpc facility but in light of her severe weakness and debility, she was finally agreeable after she was counseled extensively about her high risk for readmission and in light of her frailty. She was discharged to the transitional care unit on 03/13/2022. She is follow-up with her primary care doctor and pulmonology on outpatient basis as well as cardiology. Patient was seen and examined prior to discharge. She still felt weak. She remained on 1 L of oxygen. She had no other active complaints and review of systems otherwise negative. Labs and vitals reviewed. Home medication reviewed and reconciled. Physical Exam Narrative Const alert, oriented x3 and no apparent distress Constitutional Narrative: anxious General Appearance: cooperative, comfortable and well kempt Exam Limitations: no limitations Nutritional Appearance: cachectic HEENT normocephalic, head/scalp atraumatic, hearing grossly normal bilaterally, moist oral mucous membranes, oropharynx normal and dentition normal Eyes PERRL, EOMs intact bilaterally and conjunctivae normal Neck no lymphadenopathy, supple and no JVD Resp Resp Narrative: diminished breath sounds bibasally, few crackles bilaterally. No wheezes. Still on 2L of oxygen by nasal canula Cardio regular rate, regular rhythm, S1 normal heart sound, S2 normal heart sound and no murmurs GI normal to inspection, nondistended, normoactive bowel sounds, soft to palpation, non-tender and non-distended Extremity normal to inspection, full ROM and no clubbing, cyanosis or edema Skin no rashes or lesions noted Neuro oriented x3, CN's II-XII intact bilaterally and moves all extremities Sensorium / Orientation: awake and alert Psych affect normal Medical Records Data Medical Nutrition Assessment Dietitian: Malnutrition Criteria Met Start: 03/09/22 11:05 Freq: Status: Active Protocol: Document 03/09/22 11:05 (Rec: 03/09/22 11:05 [id number]) Nutrition Malnutrition Evidence of Malnutrition Exists Yes Malnutrition (severe): Chronic Evidenced By Suboptimal Energy Intake ( Severe),Physical Changes ( Severe) Clinical Problem Chronic Disease or Condition Related Malnutrition Etiology severe, chronic malnutrition related to inadequate energy intake w/ increased energy needs due to pulmonary disease Signs/Symptoms as evidenced by estimated energy intake meeting <75% of estimated energy needs >3 months; severe muscle wasting/ fat loss evident per physical exam- depletion noted in orbital areas, temples, scapula, lower extremities; protrusion of clavicle, acromion process; BMI 14.9 Status Active Problem Recommendation Dietitian Recommendations/Changes will adjust diet to regular, no added salt given severe malnutrition; NO gluten restriction per pt; nepro 240mL and magic cup w/ lunch for additional calories/ protein if consumed. Weight / BMI Weight Weight: 96 lb 8.999 oz Body Mass Index (BMI) 13.9 ABG / Lab / Microbiology Data Result Diagrams: 03/13/22 05:19 03/13/22 05:19 Laboratory: Laboratory Results - last 24 hr 03/09/22 12:50: TB Test (QFT) Nil 0, TB Test (QFT) Mitogen 5.93, TB Test (QFT) Ag 1 0, TB Test (QFT) Ag 2 0.01, TB Test (QFT) Comment, TB Positive Criteria Negative 03/11/22 16:36: POC Glucose 321 H 03/11/22 21:52: POC Glucose 274 H 03/12/22 05:40: WBC 7.8, RBC 3.05 L, Hgb 9.1 L, Hct 30.0 L, MCV 98.4, MCH 29.8, MCHC 30.3 L, RDW Std Deviation 50.9 H, RDW Coeff of Oly 14.1, Plt Count 160, MPV 10.8, Immature Gran % (Auto) 0.400, Neut % (Auto) 91.9 H, Lymph % (Auto) 4.5 L, [place] % (Auto) 3.2, Eos % (Auto) 0.0, Baso % (Auto) 0.0, Absolute Neuts (auto) 7.2, Absolute Lymphs (auto) 0.35 L, Nucleated RBC % 0 03/12/22 05:40: Sodium 141, Potassium 3.8, Chloride 108 H, Carbon Dioxide 28.0, Anion Gap 5, BUN 41 H, Creatinine 1.22 H, Estim Creat Clear Calc 25.43, Est GFR (MDRD) Af Amer 55 L, Est GFR (MDRD) Non-Af 45 L, BUN/Creatinine Ratio 33.6 H, Glucose 247 H, Calcium 7.9 L 03/12/22 06:31: POC Glucose 241 H 03/12/22 11:42: POC Glucose 256 H 03/12/22 15:08: PT 16.1 H, INR 1.3 Microbiology: Microbiology 03/09/22 13:05 Sputum, Expectorated/Coughed Gram Stain - Final 03/09/22 13:05 Sputum, Expectorated/Coughed Respiratory Culture - Final Enterobacter aerogenes 03/09/22 12:15 Urine, Clean Catch Streptococcus pneumoniae Antigen (M - Final 03/09/22 12:15 Urine, Clean Catch Legionella Antigen - Final 03/08/22 16:51 Mucosa - Nose Respiratory Panel (PCR) - Final Radiography Diagnostic Testing: Radiology Impression Chest X-Ray 03/11/22 12:54 IMPRESSION: No evidence of pneumothorax on the delayed images. Electronically Signed: Yahir Healy MD at 12:54 EDT , D/C Instructions Discharge Diet: Low fat / Low cholesterol Discharge Activity: Return to Normal Activity Weight Bearing Status: Weight bearing as tolerated Call your doctor if you observe: Fever of 101 or Higher, Shortness of breath, Dizziness, Swelling in the ankles, Chest pain and Increased palpitations (ir regular heartbeat) Meaningful Use Info Meaningful Use Diagnoses (Choose all that apply): AMI AMI/Post PCI/Angioplasty Aspirin given w/in 24hrs of arrival?: Yes ASA at discharge?: Yes Antiplatelet Therapy at Discharge:: Yes Statins at discharge?: Yes Gt/ARB at discharge?: Yes Beta Kera at discharge?: Yes Done w/ Acute DC measure.: Yes Documented LVEF (%): 15 Discharge Plan Admission Admit Date/Time: 03/08/22 16:04 Primary Reason for Your Visit: pneumonia Attending Provider: Michelle Root Primary Care Provider: Yudith Rosales Consulting Providers: J Carlos Scherer ; Luis Prescott ; Oumou Alaniz ; Baltazar Cuello ; Reed Hairston ; Nida Neely ANSWERING SERVICE OPERATOR Instructions Patient Instructions: Discharge Instructions Needle Biopsy: Lung Discharge Orders/Prescriptions Prescriptions: New carvedilol 12.5 mg Tablet 12.5 mg PO BID Qty: 60 RF: 1 Entresto 24-26 mg Tablet 1 tab PO BID Qty: 60 RF: 1 Continued tiotropium bromide 2.5 mcg/actuation mist 1 puff inhalation DAILY Qty: 4 RF: 2 omeprazole 20 MG capsule 20 mg PO DAILY RF: 0 albuterol sulfate 1 PUFF inhaler 2 puff inhalation Q4H PRN PRN (Reason: Sob &/Or Wheezing) Qty: 2 RF: 0 atorvastatin 40 mg tablet 40 mg PO QHS RF: 0 warfarin 2 mg tablet 4 mg PO SUTUSA RF: 0 warfarin 2 mg tablet 2 mg PO MOWETHFR RF: 0 aspirin 81 mg Tablet,Chewable 81 mg PO DAILY RF: 0 enoxaparin 40 mg/0.4 mL syringe 40 mg subcut DAILY RF: 0 Dulera 200-5 mcg/actuation HFA aerosol inhaler 2 inh INHALATION BID RF: 0 Discontinued carvedilol 3.125 mg tablet 3.125 mg PO BID RF: 0 Referrals / Follow Up: Reed Hairston DO [STAFF PHYSICIAN] - In 1 Week Yudith Rosales DO [Primary Care Provider] - Luis Prescott MD [STAFF PHYSICIAN] - Within 2 Weeks J Carlos Scherer MD [STAFF PHYSICIAN] - In 1 Week (Follow up about Biopsy ) Disposition Disposition (needs filled in before D/C Order can be placed): [facility] Facility Charges/Coding Visit Charges Inpatient E&M: 60674 Disch Hosp
--- NOTE | 2022-03-12 15:44 | CASEMGMT ---
Patient was approved to go to [facility]. Patient was going to go today, however she needs one more day of IV antibiotics. SW notified RN, company secretary, patient, and her daughter Brenda. Plan: d/c to [facility] under skilled level of care. Merline SAUNDERS
[2022-03-12 16:56] LABS: Bedside Glucose 422 mg/dL (74-106)
[2022-03-12] MEDS: Jantoven 2 MG Tablet PO (17:27)
[2022-03-12] MEDS: Budesonide Respules 0.5 MG/2 ML AMPUL.NEB. INHALATION (20:03)
[2022-03-12] MEDS: LORazepam 1 MG Tablet PO (21:40)
[2022-03-12] MEDS: Atorvastatin Calcium 40 MG Tablet PO (21:42)
[2022-03-12 23:35] LABS: Bedside Glucose 370 mg/dL (74-106)
[2022-03-13] VITALS (7 sets, daily range): BP systolic 133–159; BP diastolic 64–76; PULSE 70–79; RESP 16–20; TEMP 36.1–36.6; O2SAT 98–100
[2022-03-13 05:49] LABS: Absolute Lymphocyte Count 0.34 X10^3/uL (0.83-4.51); Absolute Neutrophil Count 7.9 X10^3/uL (2.0-7.7); Hematocrit 30.7 % (37-47); Hemoglobin 9.4 g/dL (12.0-15.0); Lymphocyte # 0.34 X10^3/ul (0.83-4.51); Mean Corp Hgb Conc 30.6 g/dL (32-36); Mean Corpuscular Hgb 29.8 pg (27.0-32.0); Mean Corpuscular Volume 97.5 fL (81-99); Mean Platelet Vol. 10.7 fl (6.2-12.0); Monocyte# 0.23 X10^3/uL; Monocyte% 2.7 % (0-10); NRBC Flagged by Analyzer 0 % (0-5); Neutrophil % 92.7 % (47-70); POSITIVE DIFFERENTIAL YES; Platelet Count 182 K/mm3 (150-450); RBC Distribution Width CV 14.1 % (11.6-14.6); RBC Distribution Width SD 50.6 fl (35.1-43.9); Red Blood Count 3.15 M/mm3 (4.2-5.4); White Blood Count 8.5 K/mm3 (4.4-11.0)
[2022-03-13 05:53] LABS: Differential Indicated SCAN CRITERIA MET
[2022-03-13 06:05] LABS: Anion Gap 4 (5-15); BUN 40 mg/dL (7-18); BUN/Creat Ratio 33.3 RATIO (10-20); Calcium,Total 7.8 mg/dL (8.5-10.1); Chloride 109 mmol/L (98-107); EST Glomerular Filtration Rate 46 mL/min (>60); Est Glom Filt Rate - Afr Amer 56 mL/min (>60); Estimated Creatinine Clearance 25.85 ml/min; Glucose 257 mg/dL (74-106); Potassium 3.9 mmol/L (3.5-5.1); Sodium Level 141 mmol/L (136-145)
[2022-03-13] MEDS: 0.9% Saline Lock 10 ML Syringe IV (06:38)
[2022-03-13] MEDS: Insulin Lispro 100 UNIT/ML INSULN.PEN SC ×2 (06:40→11:55)
[2022-03-13 06:44] LABS: Differential Comment SCANNED
[2022-03-13 06:55] LABS: Bedside Glucose 285 mg/dL (74-106)
[2022-03-13] MEDS: Budesonide Respules 0.5 MG/2 ML AMPUL.NEB. INHALATION (06:55)
[2022-03-13] MEDS: Pantoprazole Sodium 20 MG Tablet PO (10:22)
[2022-03-13] MEDS: Aspirin 81 MG TAB.CHEW PO (10:23)
[2022-03-13] MEDS: SACUBITRIL/VALSARTAN 24/26 MG TABLET 1 EACH PO (10:23)
[2022-03-13] MEDS: Carvedilol 12.5 MG Tablet PO (10:23)
[2022-03-13] MEDS: Enoxaparin 60 MG/0.6 ML Syringe SC (10:23)
[2022-03-13] MEDS: guaiFENesin 10 ML UDC (200MG/10ML) 20 ML PO (10:28)
[2022-03-13] MEDS: LORazepam 1 MG Tablet PO (10:28)
[2022-03-13] MEDS: Acetaminophen 325 MG Tablet 650 MG PO (10:28)
[2022-03-13 12:35] LABS: Bedside Glucose 298 mg/dL (74-106)
--- NOTE | 2022-03-13 13:56 | TREXTCAR_ITS ---
Diet 03/11/22 10:44 Diet: Regular - No Added Salt Type of Dietary Supplement:: Nepro Is pt able to select menu?: Yes Diet Comments: magic cup BID w/ Lunch & Dinner Routine Orders/Code Status Enema Type: Fleetz Enema Frequency: Daily PRN O2 Frequency: PRN Keep PO Greater than or Equal to (%): 90 Wound(s) Left flank: Wound Type: Puncture LT MID AXILLARY LINE: Wound Type: Puncture Therapies Weight Bearing: Weight bearing as tolerated Physical Therapy: Eval and Treat Occupational Therapy: Eval and Treat Problem/Diagnosis (1) Acute respiratory failure with hypoxia: Status: Acute (2) Pneumonia: Status: Acute (3) Acute exacerbation of chronic obstructive pulmonary disease: Status: Chronic (4) Lung mass: Status: Acute Allergies/Procedures Done in Hospital Allergies diltiazem HCl [From Cardizem] Allergy (Verified 03/08/22 13:12) Angioedema fluticasone furoate [From Breo Ellipta] Allergy (Verified 03/08/22 13:12) PT UNSURE OF REACTION gatifloxacin [From Tequin] Allergy (Verified 03/08/22 13:12) Unknown hydrochlorothiazide [From Maxzide] Allergy (Verified 03/08/22 13:12) Other Penicillins [PCN] Allergy (Verified 03/08/22 13:12) Hives triamterene [From Maxzide] Allergy (Verified 03/08/22 13:12) Other vilanterol [From Breo Ellipta] Allergy (Verified 03/08/22 13:12) PT UNSURE OF REACTION codeine Adverse Reaction (Verified 03/08/22 13:12) Upset Stomach Procedures: None Type of Care/Length of Stay Estimated LOS: Convalescent Care Less Than 30 days Type of Care Needed: Skilled Rehab Potential: Fair Prognosis: Fair Additional Orders/Day of Discharge Day of Discharge: 03/13/22 Dietary and Speech Recommendations Dietitian Recommendations/Changes: continue regular, no added salt given severe malnutrition; NO gluten restriction per pt; nepro 240mL w/ meals and magic cup BID for additional calories/protein if consumed. Discharge Plan Admission Admit Date/Time: 03/08/22 16:04 Primary Reason for Your Visit: pneumonia Attending Provider: Michelle Root Primary Care Provider: Yudith Rosales Consulting Providers: J Carlos Scherer ; Luis Prescott ; Oumou Alaniz ; Baltazar Cuello ; Reed Hairston ; Nida Neely TRANSPORTATION SOLUTIONS MANAGER Instructions Patient Instructions: Discharge Instructions Needle Biopsy: Lung Discharge Orders/Prescriptions Prescriptions: New carvedilol 12.5 mg Tablet 12.5 mg PO BID Qty: 60 RF: 1 Entresto 24-26 mg Tablet 1 tab PO BID Qty: 60 RF: 1 Continued tiotropium bromide 2.5 mcg/actuation mist 1 puff inhalation DAILY Qty: 4 RF: 2 omeprazole 20 MG capsule 20 mg PO DAILY RF: 0 albuterol sulfate 1 PUFF inhaler 2 puff inhalation Q4H PRN PRN (Reason: Sob &/Or Wheezing) Qty: 2 RF: 0 atorvastatin 40 mg tablet 40 mg PO QHS RF: 0 warfarin 2 mg tablet 4 mg PO SUTUSA RF: 0 warfarin 2 mg tablet 2 mg PO MOWETHFR RF: 0 aspirin 81 mg Tablet,Chewable 81 mg PO DAILY RF: 0 enoxaparin 40 mg/0.4 mL syringe 40 mg subcut DAILY RF: 0 Dulera 200-5 mcg/actuation HFA aerosol inhaler 2 inh INHALATION BID RF: 0 Discontinued carvedilol 3.125 mg tablet 3.125 mg PO BID RF: 0 Referrals / Follow Up: Reed Hairston DO [STAFF PHYSICIAN] - In 1 Week Yudith Rosales DO [Primary Care Provider] - Luis Prescott MD [STAFF PHYSICIAN] - Within 2 Weeks J Carlos Scherer MD [STAFF PHYSICIAN] - In 1 Week (Follow up about Biopsy ) Disposition Disposition (needs filled in before D/C Order can be placed): Intermediate Facility
== END 2022-03-13 15:28 | disposition skilled nursing facility (03) | DRG 190 ==
LOC: ED 15:41 → PCU 17:00
PROVIDERS: Internal Medicine Critical Care Medicine; Internal Medicine Infectious Disease; Admitting Provider Family Medicine; Emergency Provider Emergency Medicine; PCP Internal Medicine; Visit Provider Student in an Organized Health Care Education/Training Program
DX: J44.1 Chronic obstructive pulmonary disease with (acute) exacerbation (principal); J96.01 Acute respiratory failure with hypoxia; J15.6 Pneumonia due to other Gram-negative bacteria; I21.A1 Myocardial infarction type 2; E44.0 Moderate protein-calorie malnutrition; I13.0 Hypertensive heart and chronic kidney disease with heart failure and stage 1 through stage 4 chronic kidney disease, or unspecified chronic kidney disease; I50.22 Chronic systolic (congestive) heart failure; N18.4 Chronic kidney disease, stage 4 (severe); Z68.1 Body mass index [BMI] 19.9 or less, adult; E11.22 Type 2 diabetes mellitus with diabetic chronic kidney disease; I48.0 Paroxysmal atrial fibrillation; E11.65 Type 2 diabetes mellitus with hyperglycemia; J44.0 Chronic obstructive pulmonary disease with (acute) lower respiratory infection; D63.8 Anemia in other chronic diseases classified elsewhere; I25.10 Atherosclerotic heart disease of native coronary artery without angina pectoris; K21.9 Gastro-esophageal reflux disease without esophagitis; I25.5 Ischemic cardiomyopathy; R91.8 Other nonspecific abnormal finding of lung field; Z86.718 Personal history of other venous thrombosis and embolism; Z79.01 Long term (current) use of anticoagulants; Z87.01 Personal history of pneumonia (recurrent); Z85.828 Personal history of other malignant neoplasm of skin; Z79.82 Long term (current) use of aspirin; Z79.899 Other long term (current) drug therapy; Z87.891 Personal history of nicotine dependence; Z86.11 Personal history of tuberculosis
CPT/HCPCS: 36415; 71045; 71046; 71275; 77012; 80048; 80053; 80069; 80202; 82306; 82962; 83036; 83605; 83735; 83970; 84145; 84484; 85025; 85027; 85610; 86480; 87015; 87070; 87077; 87116; 87186; 87205; 87206; 87426; 87449; 87633; 87641; 88108; 88172; 88305; 88312; 88313; 93005; 94640; 97162; 97166; 97530; 97535; 97802; 97803; 99156; 99251; 99285; 99406; J7030; J7040; Q9967; A4216; C2613; G0463; J1940; J3490

== ENCOUNTER 2022-03-13 15:30 | Inpatient (IN) | payer MEDICARE, MEDICAID, SELFPAY ==
[2022-03-13 16:01] VITALS: BP 156/68; PULSE 62; PULSE 75; RESP 20; RESP 21; TEMP 36.1; O2SAT 98; BMI 15.0
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
[2022-03-13] MEDS: SACUBITRIL/VALSARTAN 24/26 MG TABLET 1 EACH PO (17:42)
[2022-03-13] MEDS: Carvedilol 12.5 MG Tablet PO (17:42)
[2022-03-13 17:48] VITALS: BP 129/63; PULSE 71; RESP 16; TEMP 36.5; O2SAT 97
[2022-03-13 20:00] VITALS: PULSE 74; RESP 16; O2SAT 97
[2022-03-13] MEDS: Atorvastatin Calcium 40 MG Tablet PO (20:35)
[2022-03-14 06:41] LABS: Bedside Glucose 273 mg/dL (74-106)
[2022-03-14] MEDS: Budesonide Respules 0.5 MG/2 ML AMPUL.NEB. INHALATION ×2 (06:45→19:21)
--- NOTE | 2022-03-14 06:46 | NURSING ---
PT HISTORY OF +TB TEST, TB Quant negative. Infectious disease saw pt on acute.
[2022-03-14 07:03] VITALS: BP 164/79; PULSE 73; RESP 16
[2022-03-14] MEDS: Acetaminophen 500 MG Tablet 1000 MG PO (07:03)
[2022-03-14] MEDS: Umeclidinium Bromide Inhaler 1 PUFF INHALATION (07:06)
[2022-03-14] MEDS: Enoxaparin 40 MG/0.4 ML Syringe SC (07:06)
[2022-03-14] MEDS: SACUBITRIL/VALSARTAN 24/26 MG TABLET 1 EACH PO ×2 (07:07→17:47)
[2022-03-14] MEDS: Carvedilol 12.5 MG Tablet PO ×2 (07:07→17:47)
[2022-03-14] MEDS: Pantoprazole Sodium 20 MG Tablet PO (07:07)
[2022-03-14 07:10] LABS: Absolute Lymphocyte Count 0.73 X10^3/uL (0.83-4.51); Absolute Neutrophil Count 9.1 X10^3/uL (2.0-7.7); Basophil# 0.01 X10^3/uL; Basophil% 0.1 % (0-1); Hematocrit 31.1 % (37-47); Hemoglobin 9.6 g/dL (12.0-15.0); Lymphocyte # 0.73 X10^3/ul (0.83-4.51); Lymphocyte % 6.8 % (19-41); Mean Corp Hgb Conc 30.9 g/dL (32-36); Mean Corpuscular Hgb 29.8 pg (27.0-32.0); Mean Corpuscular Volume 96.6 fL (81-99); Mean Platelet Vol. 10.1 fl (6.2-12.0); Monocyte# 0.77 X10^3/uL; Monocyte% 7.2 % (0-10); NRBC Flagged by Analyzer 0 % (0-5); Neutrophil # 9.13 X10^3/uL (2.7-7.7); Neutrophil % 85.5 % (47-70); Platelet Count 221 K/mm3 (150-450); RBC Distribution Width CV 14.2 % (11.6-14.6); RBC Distribution Width SD 50.1 fl (35.1-43.9); Red Blood Count 3.22 M/mm3 (4.2-5.4); White Blood Count 10.7 K/mm3 (4.4-11.0)
[2022-03-14 07:12] VITALS: PULSE 69; RESP 18; O2SAT 97
[2022-03-14 07:24] LABS: Anion Gap 4 (5-15); BUN 43 mg/dL (7-18); BUN/Creat Ratio 30.7 RATIO (10-20); Calcium,Total 8.1 mg/dL (8.5-10.1); Chloride 109 mmol/L (98-107); EST Glomerular Filtration Rate 38 mL/min (>60); Est Glom Filt Rate - Afr Amer 47 mL/min (>60); Estimated Creatinine Clearance 21.39 ml/min; Glucose 276 mg/dL (74-106); Sodium Level 142 mmol/L (136-145)
[2022-03-14] MEDS: Aspirin 81 MG TAB.CHEW PO (08:34)
[2022-03-14 10:00] VITALS: PULSE 64; RESP 18; O2SAT 98
[2022-03-14 10:26] VITALS: PULSE 74; RESP 20; O2SAT 94
[2022-03-14] MEDS: Albuterol 2.5 MG/3 ML VIAL.NEB. INHALATION ×2 (10:26→19:21)
[2022-03-14 11:31] LABS: Bedside Glucose 336 mg/dL (74-106)
--- NOTE | 2022-03-14 12:04 | NURSING ---
dr stock notified of BS 336, new order for humalog 7 units with meals, admin first dose now. also pt requesting sleeping pill, new order melatonin.
[2022-03-14] MEDS: Insulin Lispro 100 UNIT/ML INSULN.PEN 7 UNIT SC ×2 (12:21→17:46)
[2022-03-14 15:33] VITALS: BP 147/70; PULSE 69; RESP 18; TEMP 36.7; O2SAT 98
[2022-03-14 16:06] LABS: Bedside Glucose 239 mg/dL (74-106)
[2022-03-14 19:22] VITALS: PULSE 75; RESP 18
--- NOTE | 2022-03-14 20:10 | NURSING ---
Pt. event marketing representative (Brenda) calls unit for update, update provided, requests nurse to notify rep when appointment with Dr. Hairston is established so can attempt to be present with patient at time of appointment. Decorative Cutting Machine Tender (Brenda) states resides in [place] and unsure if patient will be able to return home alone at discharge, stating she previously discussed [facility] care facility with patient and patient refused. Decorative Cutting Machine Tender encouraged to discuss concern with nursing home social worker, will leave SW confidential voicemail regarding rep concern. Decorative Cutting Machine Tender inquires about patient motivation, patient presents as irritable at times with patient care but is cooperative, declined therapy this AM stating was too early and patient prefers to sleep in. Decorative Cutting Machine Tender expresses thanks for information, no further concerns voiced at this time.
--- NOTE | 2022-03-14 21:29 | NURSING ---
Pt. states does not want AM medications at 0600 medpass, requests meds to be changed to 0800, pharmacy request sent.
[2022-03-14 21:35] LABS: Bedside Glucose 99 mg/dL (74-106)
[2022-03-14] MEDS: MELATONIN 3 MG TABLET 6 MG PO (21:35)
[2022-03-14] MEDS: Atorvastatin Calcium 40 MG Tablet PO (21:36)
[2022-03-15] VITALS (8 sets, daily range): BP systolic 114–128; BP diastolic 65–82; PULSE 63–79; RESP 14–20; TEMP 36.3; O2SAT 95–99
[2022-03-15 06:35] LABS: Bedside Glucose 155 mg/dL (74-106)
[2022-03-15] MEDS: Budesonide Respules 0.5 MG/2 ML AMPUL.NEB. INHALATION ×2 (07:04→19:30)
[2022-03-15 07:21] LABS: Bedside Glucose 213 mg/dL (74-106)
[2022-03-15] MEDS: Carvedilol 12.5 MG Tablet PO ×2 (08:45→20:42)
[2022-03-15] MEDS: Enoxaparin 40 MG/0.4 ML Syringe SC (08:45)
[2022-03-15] MEDS: Insulin Lispro 100 UNIT/ML INSULN.PEN 7 UNIT SC ×2 (08:45→12:05)
[2022-03-15] MEDS: Umeclidinium Bromide Inhaler 1 PUFF INHALATION (08:46)
[2022-03-15] MEDS: Aspirin 81 MG TAB.CHEW PO (08:46)
[2022-03-15] MEDS: Pantoprazole Sodium 20 MG Tablet PO (08:46)
[2022-03-15] MEDS: SACUBITRIL/VALSARTAN 24/26 MG TABLET 1 EACH PO ×2 (08:47→20:42)
[2022-03-15] MEDS: Albuterol 2.5 MG/3 ML VIAL.NEB. INHALATION ×2 (10:00→19:30)
--- NOTE | 2022-03-15 10:17 | PCM.PN.RX ---
Progress Note - Pharmacy Subjective: TCU Admission Objective: Allergies diltiazem HCl [From Cardizem] Allergy (Verified 03/08/22 13:12) Angioedema fluticasone furoate [From Breo Ellipta] Allergy (Verified 03/08/22 13:12) PT UNSURE OF REACTION gatifloxacin [From Tequin] Allergy (Verified 03/08/22 13:12) Unknown hydrochlorothiazide [From Maxzide] Allergy (Verified 03/08/22 13:12) Other Penicillins [PCN] Allergy (Verified 03/08/22 13:12) Hives triamterene [From Maxzide] Allergy (Verified 03/08/22 13:12) Other vilanterol [From Breo Ellipta] Allergy (Verified 03/08/22 13:12) PT UNSURE OF REACTION codeine Adverse Reaction (Verified 03/08/22 13:12) Upset Stomach Current Medications Generic Name Dose Route Start Last Admin Trade Name Freq PRN Reason Stop Dose Admin Acetaminophen 1,000 mg 03/13/22 17:44 03/14/22 07:03 Acetaminophen 500 Mg Tablet PO 1,000 mg Q6H PRN PRN Administration Pain Score 1-10 Albuterol Sulfate 2.5 mg 03/13/22 18:08 03/15/22 10:00 Albuterol 2.5 Mg/3 Ml Vial.Neb. INHALATION 2.5 mg Q2H PRN PRN Administration Dyspnea, wheezing Aspirin 81 mg 03/14/22 08:00 03/15/22 08:46 Aspirin 81 Mg Tab.Chew PO 81 mg DAILYCM BRYAN Administration Atorvastatin Calcium 40 mg 03/13/22 22:00 03/14/22 21:36 Atorvastatin Calcium 40 Mg Tablet PO 40 mg QHS BRYAN Administration Bisacodyl 10 mg 03/13/22 17:44 Bisacodyl 5 Mg Tablet PO DAILY PRN Constipation Budesonide 0.5 mg 03/13/22 18:15 03/15/22 07:04 Budesonide Respules 0.5 Mg/2 Ml Ampul.Neb. INHALATION 0.5 mg BID.RT BRYAN Administration Carvedilol 12.5 mg 03/15/22 08:00 03/15/22 08:45 Carvedilol 12.5 Mg Tablet PO 12.5 mg 0800,1999 BRYAN Administration Enoxaparin Sodium 40 mg 03/15/22 08:00 03/15/22 08:45 Enoxaparin 40 Mg/0.4 Ml Syringe SC 40 mg DAILY@0800 [facility] Administration Insulin Human Lispro 7 unit 03/14/22 12:04 03/15/22 08:45 Insulin Lispro 100 Unit/Ml Insuln.Pen SC 7 units TIDAC [facility] Administration Melatonin 6 mg 03/14/22 22:00 03/14/22 21:35 Melatonin 3 Mg Tablet PO 6 mg QHS [facility] Administration Pantoprazole Sodium 20 mg 03/15/22 08:00 03/15/22 08:46 Pantoprazole Sodium 20 Mg Tablet PO 20 mg DAILY@0800 [facility] Administration Sacubitril/Valsartan 1 each 03/15/22 08:00 03/15/22 08:47 Sacubitril/Valsartan 24/26 Mg Tablet PO 1 each 08,1999 [facility] Administration Senna/Docusate Sodium 1 tablet 03/13/22 17:44 Senna/Docusate Sodium 1 Tablet PO BID PRN Constipation Umeclidinium [place] 1 puff 03/15/22 08:00 03/15/22 08:46 Umeclidinium [place] Inhaler INHALATION 1 puff 0800 [facility] Administration Warfarin Sodium 2 mg 03/15/22 17:00 Jantoven 2 Mg Tablet PO MoWeThFr@1700 [facility] Warfarin Sodium 4 mg 03/13/22 17:00 03/14/22 17:46 Warfarin 4 Mg Tablet PO 4 mg SuTuSa@1700 [facility] Administration Problem List (Last Reviewed 03/13/22 @ 17:[address] Luis Daniel Spencer MD) Hyperlipidemia (Acute) Gastroesophageal reflux disease (Acute) Diabetes mellitus (Acute) Chronic kidney disease, stage 5 (Chronic) Chronic systolic congestive heart failure (Chronic) Hypertension (Chronic) Atrial fibrillation (Acute) Cavitary pneumonia (Acute) NSTEMI (non-ST elevated myocardial infarction) (Acute) COPD exacerbation (Chronic) Acute respiratory failure with hypoxia (Acute) Debility (Acute) Vital Signs Temp Pulse Resp BP Pulse Ox 98.0 F 74 18 128/82 H 95 03/14/22 15:33 03/15/22 08:56 03/15/22 07:04 03/15/22 08:56 03/15/22 07:04 Oxygen Flow Rate (L/min) 2 Oxygen Delivery Method Nasal Cannula Weight: 42.269 kg Body Mass Index (BMI) 15.0 Sodium 142 mmol/L (136-145) 03/14/22 07:00 Potassium 4.0 mmol/L (3.5-5.1) 03/14/22 07:00 Chloride 109 mmol/L (98-107) H 03/14/22 07:00 Carbon Dioxide 29.0 mmol/L (21.0-32.0) 03/14/22 07:00 Anion Gap 4 (5-15) L 03/14/22 07:00 BUN 43 mg/dL (7-18) H 03/14/22 07:00 Creatinine 1.40 mg/dL (0.55-1.02) H 03/14/22 07:00 Est GFR (MDRD) Af Amer 47 mL/min (>60) L 03/14/22 07:00 Est GFR (MDRD) Non-Af 38 mL/min (>60) L 03/14/22 07:00 BUN/Creatinine Ratio 30.7 RATIO (10-20) H 03/14/22 07:00 Glucose 276 mg/dL (74-106) H 03/14/22 07:00 Assessment/Plan: 1. Pain: acetaminophen 1000mg PO Q6H PRN pain 1-10. Please continue to monitor for increased pain and PRN usage. 2. CAD/CHF: carvedilol 12.5mg PO BID, aspirin 81mg PO DAILYCM, sacubatril/valsartan 24/26mg PO BID, warfarin 2mg PO MWRF and 4mg all other days and enoxaparin 40mg SC daily until INR therapeutic. INR scheduled for later today. Please continue to monitor HR (last 74), BP (last 128/82), S/S of bleeding, hemoglobin (last 9.6g/dL), renal function and potassium (last 4mmol/L). *3. Hyperlipidemia: atorvastatin 40mg PO QHS. Please consider ordering a lipid panel if clinically appropriate. Last panel from 02/2016. Thanks. Please continue to monitor for muscle pain. 4. COPD: umclidinium 1puff daily, budesonide 0.5mg inhalation BID.RT and albuterol solution 2.5mg inhalation Q2H PRN dyspnea/wheezing. Please 5. GERD: pantoprazole 20mg PO daily. Please continue to monitor for S/S of GERD and diarrhea. 6. Insomnia (per nursing note): melatonin 6mg PO QHS. Please continue to monitor for excessive drowsiness. 7. Elevated blood glucose: insulin lispro 7units TIDAC. Please continue to monitor for S/S of hypo/hyperglycemia and blood glucose (last 155mg/dL). Psychotropic Medications: None Unnecessary Medications: None Bowel Regimen: senna/docusate 1T PO BID PRN constipation and bisacodyl 10mg PO daily PRN constipation. Please continue to monitor for S/S of constipation and PRN usage. Date of Note:: 03/15/22
--- NOTE | 2022-03-15 10:47 | NURSING ---
Pt having increased SOB SpO2 99% lungs diminished. Pulmonary called for PRN breathing treatment. Pt stated it was slightly effective but still feels very SOB and scary. Dr. Spencer called and new order for Chest X-ray. Will continue to monitor call light within reach.
[2022-03-15 11:05] LABS: Bedside Glucose 155 mg/dL (74-106)
--- NOTE | 2022-03-15 13:07 | PCM.PN.ID ---
Physical Exam Narrative Not feeling well. Bx done 03/11. No fever but increased cough and dyspnea, abel sputum. Const alert and no apparent distress General Appearance: cooperative Resp Auscultation: diminished lung sounds Cardio regular rate and regular rhythm GI soft to palpation, non-tender and non-distended Skin no rashes or lesions noted ID ID: Route of nutrition/ use of supplements: [] Nutritional Intake: [] IV Site: [] Crane Catheter: [] Assessment & Plan Assessment/Plan (1) Cavitary pneumonia: PLAN: Sputum AFB x3 neg, but did show heavy yeast. CT guided bx on 03/11 with path neg for malignancy. Will order repeat sputum cx. Will start fluconazole to see if this helps, adjusted for GFR. Will follow
--- NOTE | 2022-03-15 13:24 | RAD_ITS ---
INDICATION: Increased SOB EXAMINATION/TECHNIQUE: X-RAY - XR Chest 2 Views COMPARISON: Chest radiograph from 03/11/2022, 03/08/2022. FINDINGS: Support devices: None. Chronic emphysematous changes. Aeration of the lungs is unchanged with stable appearance of moderate left and small right pleural effusion and overlying atelectasis. Persistent left basilar opacity likely related patient''s known mass. No sizable pneumothorax. Heart size is stable. Bones and soft tissues are unchanged. RAD/Chest PA and Lateral IMPRESSION: No significant interval change from prior. Electronically Signed: Rony Dean, at 14:06 EDT ,
--- NOTE | 2022-03-15 15:00 | NURSING ---
Pt Blood pressure 186/106 Pulse 77 pt feels flushed and c/o of feeling hot. Temp 97.[address] Spencer updated and new order for hydralazine 10 mg TID.
[2022-03-15] MEDS: Fluconazole 100 MG Tablet 200 MG PO (15:16)
[2022-03-15] MEDS: hydrALAZINE 10 MG Tablet PO (15:57)
--- NOTE | 2022-03-15 16:10 | CHAPLAIN ---
Type of Pastoral Visit _x__ Initial Visit ___ Follow-up Visit ___ On-call Visit ___ General Patient Visit ___ Spiritual Assessment ___ Family Conference ___ Bereavement ___ Rapid Response ___ Code Blue ___ Other (describe below) Pastoral Care Referral From _x__ Patient ___ Family ___ Nurse ___ Physician ___ Zone Manager ___ Manager Business Development [facility] ___ Other (describe below) Sacrament/Intervention _x__ Active listening ___ Anointing ___ Synagogue ___ Bereavement ___ Communion ___ Sandhya exploration ___ ___ Life review _x__ Prayer ___ Reconciliation ___ Sacrament of Sick ___ Supportive presence ___ Wedding ___ Other (describe below) Pastoral Comments patient was seen previously in PCU; pt asks for prayer again due to anxiety as a cause from her history of recent health/breathing
[2022-03-15 16:26] LABS: Bedside Glucose 79 mg/dL (74-106)
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
[2022-03-15 17:54] LABS: International Normalized Ratio 1.7; Prothrombin Time (Protime)PT. 19.8 SECONDS (11.7-14.9)
[2022-03-15] MEDS: Jantoven 2 MG Tablet PO (17:56)
[2022-03-15] MEDS: MELATONIN 3 MG TABLET 6 MG PO (20:42)
[2022-03-15] MEDS: Atorvastatin Calcium 40 MG Tablet PO (20:42)
[2022-03-15] MEDS: Mirtazapine 15 MG Tablet 7.5 MG PO (20:42)
[2022-03-15 21:21] LABS: Bedside Glucose 171 mg/dL (74-106)
[2022-03-16] MEDS: Acetaminophen 500 MG Tablet 1000 MG PO (03:50)
[2022-03-16 06:26] LABS: Bedside Glucose 139 mg/dL (74-106)
[2022-03-16 07:15] VITALS: PULSE 71; RESP 16; O2SAT 98
[2022-03-16] MEDS: Albuterol 2.5 MG/3 ML VIAL.NEB. INHALATION (07:15)
[2022-03-16 09:15] VITALS: O2SAT 93
[2022-03-16] MEDS: Insulin Lispro 100 UNIT/ML INSULN.PEN 7 UNIT SC ×3 (09:35→18:04)
[2022-03-16] MEDS: Aspirin 81 MG TAB.CHEW PO (09:36)
[2022-03-16] MEDS: Pantoprazole Sodium 20 MG Tablet PO (09:36)
[2022-03-16] MEDS: Enoxaparin 40 MG/0.4 ML Syringe SC (09:36)
[2022-03-16] MEDS: SACUBITRIL/VALSARTAN 24/26 MG TABLET 1 EACH PO ×2 (09:36→20:33)
[2022-03-16] MEDS: Umeclidinium Bromide Inhaler 1 PUFF INHALATION (09:39)
[2022-03-16 09:40] VITALS: BP 88/52; PULSE 77
[2022-03-16] MEDS: Fluconazole 100 MG Tablet PO (09:42)
--- NOTE | 2022-03-16 11:20 | RAD_ITS ---
INDICATION: Diarrhea EXAMINATION/TECHNIQUE: X-RAY - XR Abdomen 1 View COMPARISON: Same-day chest radiograph. FINDINGS: Nonobstructive bowel gas pattern. No acute findings. Small left pleural effusion. Multilevel degenerative changes of the spine. Moderate bilateral femoroacetabular joint osteoarthritis. RAD/Abdomen Single View IMPRESSION: 1. Non-obstructive bowel gas pattern. 2. Remonstration of small left pleural effusion. Electronically Signed: Rony Dean, at 13:21 EDT ,
[2022-03-16 11:21] LABS: Bedside Glucose 221 mg/dL (74-106)
--- NOTE | 2022-03-16 11:22 | NURSING ---
Notified Dr. Spencer of patient having multiple BM's, received order for KUB and to test stool for Cdiff
--- NOTE | 2022-03-16 13:50 | CASEMGMT ---
Social Work IDT met with patient and dtr via conference call for care plan meeting. Discussed patient's progress in PT/OT and nursing. Explained [facility] NRD 03/25 with EDC 03/28 and continued stay is not guaranteed. Explained and provided insurance care plan. Pt is new on O2, SOB even lying at rest, although O2 levels remain WNL. Pt is anxious. Dr. Spencer started pt on medication, but will not take effect for a week or two. Pt must be able to return to [facility] to return home alone safely. SW continues to exchange voicemails with PASSPORT CM to discuss pt's services. Expressed concern with pt/dtr about her return to unhealthy living environments. Pt is still voicing wishes to return home and not going to a SNF. Pt has good motivation, but anxiety/SOB seems to be limiting. Pt has appt with Dr. Cuello 03/30 - it would be beneficial to attend that appt prior to discharging to get better treatment plan. Dtr had several nursing questions - transferred call to nurse's station. Dtr expressed appreciation for assistance. SW to continue to follow. Saadia Alvarenga, BLENDING KETTLE TENDER DIESEL ENGINE ENGINEER
[2022-03-16 14:03] VITALS: BP 124/51; PULSE 76; RESP 20; TEMP 35.5; O2SAT 98
[2022-03-16 17:30] LABS: Bedside Glucose 100 mg/dL (74-106)
[2022-03-16 19:30] VITALS: PULSE 65; RESP 24
[2022-03-16] MEDS: Budesonide Respules 0.5 MG/2 ML AMPUL.NEB. INHALATION (19:30)
[2022-03-16] MEDS: Carvedilol 12.5 MG Tablet PO (20:33)
[2022-03-16] MEDS: Mirtazapine 15 MG Tablet 7.5 MG PO (20:34)
[2022-03-16] MEDS: Atorvastatin Calcium 40 MG Tablet PO (20:34)
[2022-03-16] MEDS: MELATONIN 3 MG TABLET 6 MG PO (20:34)
[2022-03-16 21:51] LABS: Bedside Glucose 103 mg/dL (74-106)
[2022-03-16 23:40] VITALS: PULSE 72; RESP 16; O2SAT 98
[2022-03-17] VITALS (7 sets, daily range): BP systolic 122–138; BP diastolic 55–69; PULSE 66–79; RESP 16–20; TEMP 36.2; O2SAT 97–98
[2022-03-17 05:51] LABS: International Normalized Ratio 1.7; Prothrombin Time (Protime)PT. 19.8 SECONDS (11.7-14.9)
[2022-03-17] MEDS: Fluconazole 100 MG Tablet PO (05:59)
[2022-03-17 06:30] LABS: Bedside Glucose 139 mg/dL (74-106)
[2022-03-17] MEDS: Budesonide Respules 0.5 MG/2 ML AMPUL.NEB. INHALATION ×2 (06:31→19:45)
[2022-03-17] MEDS: Insulin Lispro 100 UNIT/ML INSULN.PEN 7 UNIT SC ×3 (08:00→18:13)
[2022-03-17] MEDS: Umeclidinium Bromide Inhaler 1 PUFF INHALATION (08:00)
[2022-03-17] MEDS: Carvedilol 12.5 MG Tablet PO ×2 (08:08→20:19)
[2022-03-17] MEDS: Aspirin 81 MG TAB.CHEW PO (08:08)
[2022-03-17] MEDS: SACUBITRIL/VALSARTAN 24/26 MG TABLET 1 EACH PO ×2 (08:08→20:19)
[2022-03-17] MEDS: Pantoprazole Sodium 20 MG Tablet PO (08:08)
[2022-03-17] MEDS: Enoxaparin 40 MG/0.4 ML Syringe SC (08:09)
[2022-03-17 10:56] LABS: Bedside Glucose 208 mg/dL (74-106)
--- NOTE | 2022-03-17 11:11 | NS ---
Res given copy of daily specials/first choice menu w/ instructions on how to order.
--- NOTE | 2022-03-17 14:58 | ST.MBS ---
Modified Barium Swallow - Patient Information Study Date: 03/17/22 Study Time: 14:00 Direct Billable Minutes: 110 Total Minutes procedure & reportin Diagnosis: COPD exacerbation (J44.1), GERD (K21.9) Referring Physician: Luis Daniel Spencer Chi Reason for Referral: Objectively assess swallow function, risk for aspiration, and determine recommendations for least restrictive diet textures and compensatory strategies to improve safety of swallow. 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 She presented to [facility] ED 03/08/2022 with shortness of breath. She was admitted for management of shortness of breath, acute exacerbation of COPD, acute and chronic respiratory failure with hypercapnia, severe malnutrition, RLL cavitary PNA, and non-STEMI. 03/11/2022 CT guided biopsy of lung mass negative for cancer, positive for alistair. She was admitted to TCU 03/13/2022 with debility for PT and OT services. Concerns for aspiration prompted speech consult. DANCE THERAPIST recommended regular textures / thin liquids with distant supervision and referral for MBS study to rule out DANCE THERAPIST concerns for silent aspiration due to hx of COPD, 20lb weight loss in the past 1-1.5 years, and current PNA. Current Diet Ordered: Regular / Thin Dentition: Upper Dentures, Lower Dentures Mental Status: WNL - Able to follow commands for evaluation Respiratory Status: Oxygenating on 2L/M nasal cannula - Penetration-Aspiration Scale Penetration-Aspiration Scale: OBJECTIVE ASSESSMENT OF SWALLOW FUNCTION (QUANTITATIVE ? PER TRIAL): PENETRATION / ASPIRATION SCALE (GOLDMAN): 1 = does not enter airway 2 = enters airway/above vocal folds/ejected 3 = enters airway/above vocal folds/not ejected 4 = enters airway/contacts vocal folds/ejected 5 = enters airway/contacts vocal folds/not ejected 6 = enters airway/below vocal folds/ejected 7 = enters airway/below vocal folds/not ejected despite effort 8 = enters airway/below vocal folds/no effort VIDEOFLOROSCOPIC SCALE SCORE (GOLDMAN): Grade I = aspiration of material that has penetrated into the laryngeal vestibule, intact cough reflex Grade II = aspiration < 10 % of the bolus, intact cough reflex Grade III = aspiration of < 10 % of the bolus, reduced cough reflex or aspiration of > 10 % of the bolus, intact cough reflex Grade IV = aspiration of > 10 % of the bolus, reduced cough reflex - Penetration-Aspiration Scale Score Thin Liquid via teaspoon Result: 7= enters airways/below vocal folds/not ejected despite effort Thin Liquid via teaspoon Trial 2 Result: 8= enters airway/below vocal folds/no effort Thin Liquid via small single sip from cup Result: 5= enters airways/contacts vocal folds/not ejected [place] Thick Liquid via teaspoon Result: 3= enters airways/above vocal folds/not ejected [place] Thick Liquid via small single sip from cup Result: 1= does not enter airway [place] Thick Liquid via small single sip from cup Result: 1= does not enter airway Pudding via teaspoon with esophageal screen Result: 1= does not enter airway 1/4 Cookie with esophageal screen Result: 1= does not enter airway [place] Thick Liquid via small single sip from cup Trial 2 Result: 1= does not enter airway [place] Thick Liquid via small single sip from cup Effortful swallow Result: 2= enter airway/above vocal folds/ejected - Oral Phase Labial Seal: Interlabial escape, no progression to anterior lip Tongue Control During Bolus Hold: Posterior escape of less than half of bolus Bolus Preparation/Mastication: Slow prolonged chewing/mashing with complete recollection Bolus Transport/Lingual Motion: Delayed initiation of tongue motion Oral Residue: Trace residue lining oral structures - Pharyngeal Phase Initiation of Pharyngeal Swallow: Bolus head in pyriforms Soft Palate Elevation: Trace column of contrast/air between soft palate and pharyngeal wall Laryngeal Elevation: Partial superior movement thyroid cart/partial apprx aryt-epig petiole Anterior Hyoid Excursion: Partial anterior movement Epiglottic Movement: Complete inversion Laryngeal Vestibule Closure at Height of Swallow: Incomplete; narrow column of air/contrast in laryngeal vestibule Pharyngeal Stripping Wave: Present - complete Pharyngoesophageal Segment Opening: Parital distension and partial duration; parital obstruction of flow Tongue Base Retraction: Narrow column of contrast between tongue base & post. pharyngeal wall Pharyngeal Residue: Collection of residue within or on pharyngeal structures - Esophageal Phase Esophageal Clearance: Esophageal retention w/ retrograde flow below pharyngoesophageal seg. - Diagnosis/Impression Diagnosis: Mod. oropharyngeal dysphagia (R13.12), Sev. esophageal dysphagia (R13.14) Impression: The oral phase is marked by prolonged, but adequate mastication, mild oral residue after the swallow, and decreased bolus control with premature posterior loss of <1/2 of liquid bolus prior to swallow onset. Initial sip via tsp prematurely spilled to the laryngeal vestibule and trachea prior to completion of the swallow. The pharyngeal phase is marked by decreased airway closure during the swallow, mild-moderate pharyngeal residue after the swallow. She has mildly decreased laryngeal elevation and anterior hyoid excursion. Additionally, she presents with mild-moderately decreased tongue base retraction. The patient demonstrated SILENT aspiration of the second tsp sip of thin liquid. She aspirated the initial tsp sip with weak, ineffective cough reflex. The patient presented with penetration of nectar thick liquid via tsp without full ejection from the laryngeal vestibule and penetration of nectar thick liquid via cup with full ejection from the laryngeal vestibule (SEE PAS scores for full details). The esophageal phase is marked by significant esophageal retention throughout the mid and lower esophagus with little emptying and retrograde flow below UES. GI consulted for concerns for high risk for reflux aspiration. - Recommendations Diet: Mechanical Soft Textures - Minced and Moist textures (IDDSI Level 5), [place]-thick Liquids - Mildly thick (IDDSI Level 2) Comment: Consider smaller more frequent meals. Discontinue meal if increased s/s of aspiration. The patient is at high risk for reflux aspiration. Compensatory Strategies: Small Bites, Small Sips, Slow Rate, Sitting upright, Remain sitting upright for 30 minutes after PO intake - 60 min after meal Supervision: 1:1 Close Supervision Recommend Repeat Modified Barium Swallow: Yes Need for Skilled Speech Therapy Services: Yes Recommended Referrals: GI Consult - Retention of pudding and cookie throughout mid and lower esophagus with retrograde flow below UES and little emptying. Would NOT recommend esophagram due to aspiration risk. Education Completed: 1. Described result of evaluation., 2. Pt understands evaluation & agrees with goals and treatment plan., 7. Pt requires further education on strategies & risks. - Status Active ST Patient: Active - Contact Information [facility] Speech Therapy:: Kinza Wolfe M.A. [facility]-DANCE THERAPIST Speech-Language Pathologist [facility] [address] [place] [address] [email or web address] [phone] 03/17/22 15:15
[2022-03-17 16:16] LABS: Bedside Glucose 172 mg/dL (74-106)
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
[2022-03-17] MEDS: Jantoven 2 MG Tablet PO (18:13)
[2022-03-17] MEDS: Mirtazapine 15 MG Tablet 7.5 MG PO (20:19)
[2022-03-17] MEDS: MELATONIN 3 MG TABLET 6 MG PO (20:19)
[2022-03-17 21:46] LABS: Bedside Glucose 156 mg/dL (74-106)
[2022-03-18 06:11] LABS: International Normalized Ratio 2.1; Prothrombin Time (Protime)PT. 23.2 SECONDS (11.7-14.9)
[2022-03-18 06:30] LABS: Bedside Glucose 186 mg/dL (74-106)
[2022-03-18 07:50] VITALS: PULSE 78; RESP 20
[2022-03-18] MEDS: Budesonide Respules 0.5 MG/2 ML AMPUL.NEB. INHALATION ×2 (07:54→19:12)
[2022-03-18] MEDS: Insulin Lispro 100 UNIT/ML INSULN.PEN 7 UNIT SC ×3 (07:55→17:59)
[2022-03-18] MEDS: Pantoprazole Sodium 20 MG Tablet PO (07:56)
[2022-03-18] MEDS: Fluconazole 100 MG Tablet PO (07:56)
[2022-03-18] MEDS: Enoxaparin 40 MG/0.4 ML Syringe SC (07:56)
[2022-03-18] MEDS: Carvedilol 12.5 MG Tablet PO ×2 (07:56→21:06)
[2022-03-18] MEDS: SACUBITRIL/VALSARTAN 24/26 MG TABLET 1 EACH PO ×2 (07:56→21:06)
[2022-03-18] MEDS: Aspirin 81 MG TAB.CHEW PO (07:56)
[2022-03-18] MEDS: Umeclidinium Bromide Inhaler 1 PUFF INHALATION (07:57)
--- NOTE | 2022-03-18 09:17 | NURSING ---
attempted to consult Dr Benton, he is not taking calls today per [facility] electrolysis needle operator. [employer] states he is on Tuesday, will call then.
--- NOTE | 2022-03-18 09:33 | NURSING ---
pt refusing to eat or drink d/t her [facility] soft diet and nectar thick liquids, updated speech therapy hoping they can add antonio water protocol d/t possible dehydration.
[2022-03-18 11:10] VITALS: O2SAT 94
[2022-03-18 11:16] LABS: Bedside Glucose 130 mg/dL (74-106)
--- NOTE | 2022-03-18 14:34 | MDS.RN ---
Pain interview for KEVIN 03/20/22 completed.
[2022-03-18 14:49] VITALS: BP 142/63; PULSE 68; RESP 16; TEMP 36.2; O2SAT 97
[2022-03-18 16:30] LABS: Bedside Glucose 219 mg/dL (74-106)
--- NOTE | 2022-03-18 17:28 | NURSING ---
cdiff negative, pt removed from precautions. dr stock notified, new order prn imodium
[2022-03-18] MEDS: Jantoven 2 MG Tablet PO (17:59)
[2022-03-18] MEDS: Loperamide 2 MG Capsule PO (18:03)
[2022-03-18 19:12] VITALS: PULSE 67; RESP 28
--- NOTE | 2022-03-18 19:28 | NURSING ---
pt refused meds in pureed, took them whole and drank thickened milk at supper. pt aware that she cannot have thin liquids with meds, she does have order for [facility] water protocol.
[2022-03-18] MEDS: Mirtazapine 15 MG Tablet 7.5 MG PO (21:06)
[2022-03-18] MEDS: MELATONIN 3 MG TABLET 6 MG PO (21:06)
[2022-03-18 21:26] LABS: Bedside Glucose 112 mg/dL (74-106)
[2022-03-18 23:28] VITALS: PULSE 71; RESP 20; O2SAT 98
[2022-03-19 06:08] LABS: International Normalized Ratio 2.6; Prothrombin Time (Protime)PT. 27.5 SECONDS (11.7-14.9)
[2022-03-19 06:31] LABS: Bedside Glucose 191 mg/dL (74-106)
[2022-03-19 07:25] VITALS: PULSE 74; RESP 18
[2022-03-19] MEDS: Budesonide Respules 0.5 MG/2 ML AMPUL.NEB. INHALATION ×2 (07:25→19:18)
[2022-03-19] MEDS: Insulin Lispro 100 UNIT/ML INSULN.PEN 7 UNIT SC ×2 (08:13→12:10)
[2022-03-19] MEDS: Pantoprazole Sodium 20 MG Tablet PO (08:13)
[2022-03-19] MEDS: Aspirin 81 MG TAB.CHEW PO (08:13)
[2022-03-19] MEDS: Umeclidinium Bromide Inhaler 1 PUFF INHALATION (08:13)
[2022-03-19] MEDS: Enoxaparin 40 MG/0.4 ML Syringe SC (08:13)
[2022-03-19] MEDS: Carvedilol 12.5 MG Tablet PO ×2 (08:13→21:48)
[2022-03-19] MEDS: SACUBITRIL/VALSARTAN 24/26 MG TABLET 1 EACH PO ×2 (08:13→21:48)
[2022-03-19] MEDS: Fluconazole 100 MG Tablet PO (08:13)
[2022-03-19 09:01] VITALS: O2SAT 97
[2022-03-19 10:00] VITALS: PULSE 79; RESP 20; O2SAT 97
[2022-03-19 10:16] LABS: Bedside Glucose 181 mg/dL (74-106)
--- NOTE | 2022-03-19 12:03 | NURSING ---
Left message for Dr. Baker office to return call for consult.
--- NOTE | 2022-03-19 13:03 | NURSING ---
Dr. Scherer to unit and stated he will review patients Diflucan order.
--- NOTE | 2022-03-19 13:31 | CASEMGMT ---
Social Work BIMS and PHQ-9 completed for MDS assessment. Saadia Alvarenga, CRM MARKETING SPECIALIST CAREER SERVICES OFFICER
[2022-03-19 14:14] VITALS: BP 126/51; PULSE 67; RESP 20; TEMP 36.2; O2SAT 98
[2022-03-19 16:27] LABS: Bedside Glucose 118 mg/dL (74-106)
[2022-03-19] MEDS: Jantoven 2 MG Tablet PO (16:55)
--- NOTE | 2022-03-19 17:33 | NURSING ---
Dr Benton to unit to assess pt. He stated he will continue to follow the patient.
--- NOTE | 2022-03-19 18:42 | CON.PCM_ITS ---
Assessment & Plan Assessment/Plan (1) Gastroesophageal reflux disease: PLAN: She is not having any problems with gastroesophageal reflux disease at this time. (2) Swallowing difficulty: PLAN: The differential diagnosis for swallowing difficulties could be esophageal dysphagia secondary to poor nutrition, Steffany esophagitis, esophageal stricture, oropharyngeal dysphagia. At this time she is very high risk for an upper endoscopy due to her breathing difficulties. She is having shortness of breath on 2 to 4 L of oxygen. Also she is on Coumadin therapy. If she does have improvement in her shortness of breath and she may be a candidate for an upper endoscopy to evaluate her upper GI tract. I would recommend empiric fluconazole therapy due to her history of steroids, diabetes, antibiotics and very poor nutrition to treat possible Steffany esophagitis. HPI Consult Data Date of Consult: 03/19/22 HPI Narrative HPI Narrative: ELIS SCRUGGS, is a 81-year-old female with an extensive past medical history and was admitted through the ED on 03/08/2022 with a complaint of worsening shortness of breath. Patient was being evaluated on outpatient basis for left lung mass#GERD: On PPI thought to be due to cancer and had been following up at the [facility]. She had been recently admitted and discharged on 02/24/2022 after being evaluated for acute hypoxic respiratory failure due to acute CHF exacerbation and left- sided pleural effusion. She had also had elevated cardiac enzymes during that admission and cardiac cath showed multivessel disease and to echo showed EF of 15 to 20%. She was subsequently transferred to [facility] for evaluation for CABG but she was not felt to be an appropriate candidate for this and was discharged home from [facility] on 02/27/2022 with medical management. Her shortness of breath however worsened at home so she came into the ED where chest x-ray showed parenchymal changes in the left lung base. She was admitted and managed for acute on chronic combined hypoxic and hypercapnic respiratory failure which was thought to be multifactorial, likely due to acute on chronic COPD exacerbation as well as probable heart failure and underlying lung lesion. She was placed on IV Solu-Medrol and pulmonology was consulted. She was also diuresed with IV Lasix. Cardiology and pulmonology were consulted. Sputum cultures were positive for Enterobacter aerogenes and so she was treated for gram-negative pneumonia and placed on IV antibiotics. ID was also consulted as there was concern for TB and she had test for TB ordered with sputum for AFBs. Sputum for AFBs x3 and QuantiFERON were all negative. Patient was treated with cefepime and completed about 6 days of antibiotics. Patient was initially reluctant to go to a intermediate facility but in light of her severe weakness and debility, she was finally agreeable after she was counseled extensively about her high risk for readmission and in light of her frailty. She was discharged to the transitional care unit on 03/13/2022. She says that her breathing has not been good for the last few months. She still has a cough that has been lingering over the last 3 weeks. I was called to see her because she underwent a swallowing test and did not do very well. She is on a modified diet at this time which the patient does not like. She does admit to dysphagia particularly but she does admit to a poor appetite. She has lost a significant amount of weight. She says that she does not have any problems with solids or liquids. She has never had an upper endoscopy and she does not want a feeding tube at this time. [facility] Medical History Anemia Atherosclerosis of coronary artery of [place] heart without angina pectoris Atrial fibrillation Benign essential HTN Celiac disease CHF (congestive heart failure) Chronic anticoagulation Chronic kidney disease Chronic renal failure, stage 5 COLD (chronic obstructive lung disease) COPD (chronic obstructive pulmonary disease) Diabetes mellitus Family history of lung cancer FCHL (familial combined hyperlipidemia) Gastroesophageal reflux disease History of DVT (deep vein thrombosis) HLD (hyperlipidemia) Multiple excoriations Neoplasm of uncertain behavior of skin Pneumonia Pulmonary cachexia due to chronic obstructive pulmonary disease Solitary pulmonary nodule 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 Stage 1 mild COPD by GOLD classification Superficial thrombophlebitis of right leg Tobacco abuse Home Medications omeprazole 20 mg PO DAILY 12/30/14 [History Last Taken 03/08/22] albuterol sulfate 2 puff INHALATION Q4H PRN PRN #2 inhaler 04/14/20 [Rx Last Taken 03/08/22] tiotropium bromide 2.5 mcg/actuation mist for inhalation 1 puff INHALATION DAILY #4 g 07/29/20 [Rx Last Taken 03/08/22] Dulera 2 inh INHALATION BID 03/08/22 [History Last Taken 03/08/22] aspirin 81 mg PO DAILY 03/08/22 [History Last Taken 03/08/22] atorvastatin 40 mg PO QHS 03/08/22 [History Last Taken 03/07/22] enoxaparin 40 mg SUBCUT DAILY 03/08/22 [History Last Taken 03/06/22] warfarin 2 mg PO MOWETHFR 03/08/22 [History Last Taken 03/08/22] warfarin 4 mg PO SUTUSA 03/08/22 [History Last Taken 03/07/22] carvedilol 12.5 mg PO BID 03/13/22 [History Last Taken Unknown] sacubitril-valsartan [Entresto] 1 tab PO BID 03/13/22 [History Last Taken Unknown] Allergy/AdvReac Type Severity Reaction Status Date / Time diltiazem HCl [From Cardizem] Allergy Angioedema Verified 03/08/22 13:12 fluticasone furoate Allergy PT UNSURE Verified 03/08/22 13:12 [From Breo Ellipta] OF REACTION gatifloxacin [From Tequin] Allergy Unknown Verified 03/08/22 13:12 hydrochlorothiazide Allergy Other Verified 03/08/22 13:12 [From Maxzide] Penicillins [PCN] Allergy Hives Verified 03/08/22 13:12 triamterene [From Maxzide] Allergy Other Verified 03/08/22 13:12 vilanterol Allergy PT UNSURE Verified 03/08/22 13:12 [From Breo Ellipta] OF REACTION codeine AdvReac Upset Verified 03/08/22 13:12 Stomach Family History Father Diabetes Lung cancer Mother Heart disease Hypertension Surgical History History of appendectomy History of hysterectomy History of left heart catheterization (02/19/22) History of skin graft Status post insertion of dialysis catheter Social History household members: none Smoking Status: Former smoker how long ago did patient quit smoking: Quit ~ 1 month prior, smoked 1.5 ppd since youth until quit. second hand exposure: Yes alcohol intake: never substance use type: does not use caffeine: Yes what type of physical activity do you participate in: none ROS Review of Systems ROS Unobtainable: other Constitutional Constitutional: Denies fatigue, fever(s), poor appetite, weight gain or weight loss ENT HEENT: Denies mouth lesions Cardiovascular Cardiovascular: Denies abdominal bloating, abdominal edema or abdominal pain Respiratory/Chest Respiratory/Chest: Denies change in mental status, change in phlegm color, chest congestion or chest tightness Gastrointestinal Gastrointestinal: Denies belching, bloating, change in bowel habits, change in stool character, chewing difficulty, coffee ground emesis, constipation, cramping, diarrhea, dyspepsia, dysphagia, early satiety, excessive flatus, fecal incontinence, heartburn, hematemesis, hematochezia, hemorrhoids, loose stools, melena, nausea, odynophagia, rectal bleeding, tenesmus, vomiting or weight changes Genitourinary Genitourinary: Denies abdominal discomfort, burning urination or itching Musculoskeletal Musculoskeletal: Reports as per HPI; Denies muscle weakness or myalgias Integumentary Integumentary: Denies jaundice Neurologic Neurologic: Denies lack of coordination or weakness Psychiatric Psychiatric: Denies confusion, depression, memory loss, mood swings, paranoia or suicidal ideation Endocrine Endocrinology: Denies systems reviewed and no addt'l complaints, except as documented Hematologic/Lymphatic Hematologic/Lymphatic: Denies anemia, easy bleeding, easy bruising or lymphadenopathy Allergic/Immunologic Allergic/Immunologic: Denies systems reviewed and no addt'l complaints, except as documented Medical Records Data Medical Nutrition Assessment Dietitian: Malnutrition Criteria Met Start: 03/15/22 15:32 Freq: Status: Active Protocol: Document 03/15/22 15:32 LO (Rec: 03/15/22 15:32 LO Laptop) Nutrition Malnutrition Evidence of Malnutrition Exists Yes Malnutrition (severe): Chronic Evidenced By Suboptimal Energy Intake ( Severe),Physical Changes ( Severe) Clinical Problem Chronic Disease or Condition Related Malnutrition Etiology severe, chronic malnutrition related to inadequate energy intake w/ increased energy needs due to pulmonary disease Signs/Symptoms as evidenced by estimated energy intake meeting <75% of estimated energy needs >3 months; severe muscle wasting/ fat loss evident per physical exam- depletion noted in orbital areas, temples, scapula, lower extremities; protrusion of clavicle, acromion process; BMI 15 Status Active Problem Recommendation Dietitian Recommendations/Changes continue regular, no added salt given severe malnutrition ; NO gluten restriction per pt ; nepro 240mL w/ meals and magic cup BID for additional calories/protein if consumed. Lab / Micro Data Result Diagrams: 03/14/22 07:00 03/14/22 07:00 Labs: Laboratory Results - last 24 hr 03/18/22 21:16: POC Glucose 112 H 03/19/22 05:25: PT 27.5 H, INR 2.6 03/19/22 06:23: POC Glucose 191 H 03/19/22 10:01: POC Glucose 181 H 03/19/22 16:15: POC Glucose 118 H Micro: Microbiology 03/18/22 14:45 Stool C. difficile DNA Amplification - Final Charges/Coding Visit Charges Inpatient E&M: 92612 Init Hosp L2
[2022-03-19 19:18] VITALS: PULSE 85; RESP 24
--- NOTE | 2022-03-19 19:55 | NURSING ---
Nursing Military Lawyer, Nany notified of order for doppler to rule out DVT.
--- NOTE | 2022-03-19 20:52 | NURSING ---
Per house piping inspector patient will not be able to obtain LUE doppler as ordered until Tuesday and would need to be sent to ED if needed sooner for completion. Dr. Santos notified and gave order to send to ED tonight for doppler. ED contacted and states unable to complete upper extremtity dopper until Tuesday AM. Dr. Santos contacted and notified unable to send for doppler until tuesday AM. Per Dr. Santos ok to send in AM for doppler. hairspring fabrication supervisor contaced and notified patient will need doppler in ED Sat AM, per house piping inspector, patient to be sent in AM, dopplers completed between 9a-1p.
[2022-03-19 21:46] LABS: Bedside Glucose 170 mg/dL (74-106)
[2022-03-19] MEDS: MELATONIN 3 MG TABLET 6 MG PO (21:49)
[2022-03-19] MEDS: Mirtazapine 15 MG Tablet 7.5 MG PO (21:49)
[2022-03-20] VITALS (8 sets, daily range): BP systolic 117–186; BP diastolic 48–76; PULSE 55–76; RESP 18–20; TEMP 35.9; O2SAT 96–99
[2022-03-20 06:26] LABS: Bedside Glucose 166 mg/dL (74-106)
[2022-03-20] MEDS: Budesonide Respules 0.5 MG/2 ML AMPUL.NEB. INHALATION ×2 (07:30→19:40)
[2022-03-20 07:55] LABS: International Normalized Ratio 2.7; Prothrombin Time (Protime)PT. 28.1 SECONDS (11.7-14.9)
--- NOTE | 2022-03-20 08:35 | NURSING ---
Spoke with Cally, rn charge in ED. She will call vascular at 0900 when they are international trade analyst and then let us know when we can send resident down to ED for doppler.
[2022-03-20] MEDS: Umeclidinium Bromide Inhaler 1 PUFF INHALATION (09:19)
[2022-03-20] MEDS: Insulin Lispro 100 UNIT/ML INSULN.PEN 7 UNIT SC (09:21)
[2022-03-20] MEDS: Pantoprazole Sodium 20 MG Tablet PO (09:23)
[2022-03-20] MEDS: Carvedilol 12.5 MG Tablet PO ×2 (09:23→20:53)
[2022-03-20] MEDS: SACUBITRIL/VALSARTAN 24/26 MG TABLET 1 EACH PO ×2 (09:23→20:53)
[2022-03-20] MEDS: Fluconazole 100 MG Tablet PO (09:23)
[2022-03-20] MEDS: Aspirin 81 MG TAB.CHEW PO (09:23)
[2022-03-20 11:31] LABS: Bedside Glucose 133 mg/dL (74-106)
--- NOTE | 2022-03-20 11:50 | NURSING ---
Pt Sent Down to ER to have Doppler done on Left arm.
--- NOTE | 2022-03-20 14:30 | NURSING ---
Pt returned to floor from E.R. no new orders. Pt neg. for DVT in left arm. ER felt it was from a blood draw which caused a hematoma. Gt wrap in place. Call light within reach will continue to monitor.
[2022-03-20] MEDS: hydrALAZINE 10 MG Tablet PO (14:44)
[2022-03-20 16:31] LABS: Bedside Glucose 76 mg/dL (74-106)
[2022-03-20 18:05] LABS: Bedside Glucose 158 mg/dL (74-106)
[2022-03-20] MEDS: Albuterol 2.5 MG/3 ML VIAL.NEB. INHALATION (19:41)
[2022-03-20] MEDS: MELATONIN 3 MG TABLET 6 MG PO (20:54)
[2022-03-20] MEDS: Mirtazapine 15 MG Tablet 7.5 MG PO (20:54)
--- NOTE | 2022-03-20 21:00 | NURSING ---
Pt irritable during care and when medication administered. Occasional moist, nonproductive cough noted. O2 at 2 lpm via nc. SpO2 98%. IS and viprapep at bedside. Instructed on use and benefits of IS and vibrapep. Pt ordered nectar thick liquids and Jeong Water Protocol. Has toothettes on overbed table and a small cup of water. Pt does not wish to sit up in bed at a 90 degree angle to take medication and consume liquids. Requested this nurse crush pills and mix in jello. Instructed on the risk of recurrent aspiration. Further education needed. Call light w/ in reach.
--- NOTE | 2022-03-20 21:18 | PCA ---
went into room to boost patient up into bed patient had no bed pad or sheet underneath her to boost her up in bed. patient stated everyone had been just grabbing her under her arms to move her up in bed. Consulting Services Project Manager informed patient with the nurse in the room helping that we could not move her up in bed like that we needed a bed pad or sheet underneath her. patient allowed us to put a bed sheet underneath her
[2022-03-20 21:26] LABS: Bedside Glucose 182 mg/dL (74-106)
[2022-03-21 05:15] LABS: Absolute Lymphocyte Count 0.72 X10^3/uL (0.83-4.51); Basophil# 0.02 X10^3/uL; Basophil% 0.3 % (0-1); Eosinophil# 0.09 X10^3/uL; Eosinophils% 1.2 % (0-5); Hematocrit 31.5 % (37-47); Hemoglobin 9.4 g/dL (12.0-15.0); Lymphocyte # 0.72 X10^3/ul (0.83-4.51); Lymphocyte % 9.4 % (19-41); Mean Corp Hgb Conc 29.8 g/dL (32-36); Mean Corpuscular Hgb 29.3 pg (27.0-32.0); Mean Corpuscular Volume 98.1 fL (81-99); Mean Platelet Vol. 10.6 fl (6.2-12.0); Monocyte# 0.73 X10^3/uL; Monocyte% 9.6 % (0-10); NRBC Flagged by Analyzer 0 % (0-5); Neutrophil # 6.02 X10^3/uL (2.7-7.7); Platelet Count 124 K/mm3 (150-450); RBC Distribution Width CV 14.6 % (11.6-14.6); RBC Distribution Width SD 53.1 fl (35.1-43.9); Red Blood Count 3.21 M/mm3 (4.2-5.4); White Blood Count 7.6 K/mm3 (4.4-11.0)
[2022-03-21 05:29] LABS: International Normalized Ratio 3.5
[2022-03-21 05:37] LABS: Anion Gap 3 (5-15); BUN 35 mg/dL (7-18); Calcium,Total 7.8 mg/dL (8.5-10.1); Chloride 107 mmol/L (98-107); Creatinine, Serum 1.13 mg/dL (0.55-1.02); EST Glomerular Filtration Rate 49 mL/min (>60); Est Glom Filt Rate - Afr Amer 60 mL/min (>60); Estimated Creatinine Clearance 27.58 ml/min; Glucose 140 mg/dL (74-106); Potassium 3.9 mmol/L (3.5-5.1); Sodium Level 141 mmol/L (136-145)
[2022-03-21 06:41] LABS: Bedside Glucose 136 mg/dL (74-106)
[2022-03-21 06:52] VITALS: PULSE 72; RESP 16; O2SAT 98
[2022-03-21] MEDS: Budesonide Respules 0.5 MG/2 ML AMPUL.NEB. INHALATION (06:52)
[2022-03-21] MEDS: Acetaminophen 500 MG Tablet 1000 MG PO ×2 (06:52→15:35)
--- NOTE | 2022-03-21 07:44 | NURSING ---
Pt requesting pain medication for pain in feet this am. Pain is burning and at 4/10. Agreeable to take Tylenol crushed and mixed in green jello. RT in to administer aerosol treatment. Pt has questions about respiratory status and questions if the bread wrapper operator will see her on TCU. Informed pt she will follow-up w/ pulmonology as an outpatient and already has a scheduled appointment. Rolls eyes and states whatever several times during conversation. Explained to pt while on TCU she is here to work with therapy as she is not safe to return back to the community by herself at this time. Pt questions why the Structured Cabling Technician doesn't visit her daily, but if she would like to be seen to notify staff to coordinate a visit. Call light w/ in reach.
[2022-03-21] MEDS: Umeclidinium Bromide Inhaler 1 PUFF INHALATION (09:05)
[2022-03-21] MEDS: Carvedilol 12.5 MG Tablet PO ×2 (09:06→19:56)
[2022-03-21] MEDS: Pantoprazole Sodium 20 MG Tablet PO (09:06)
[2022-03-21] MEDS: Fluconazole 100 MG Tablet PO (09:07)
[2022-03-21] MEDS: Aspirin 81 MG TAB.CHEW PO (09:07)
[2022-03-21] MEDS: SACUBITRIL/VALSARTAN 24/26 MG TABLET 1 EACH PO ×2 (09:07→19:56)
[2022-03-21] MEDS: Insulin Lispro 100 UNIT/ML INSULN.PEN 7 UNIT SC ×3 (09:10→18:23)
[2022-03-21 09:19] VITALS: BP 122/56; PULSE 86
--- NOTE | 2022-03-21 10:26 | NURSING ---
Pt encouraged to get up in chair at this time explained the benefits of sitting up in a chair vs laying in bed all day. Pt Voiced understanding and was able to sit up in chair for 1 hr before returning back to bed. Encouraged pt to get up multiple times to chair throughout day especially with meals d/t difficultly swallowing. Educated pt on ST recommendations of sitting up at a 90 Degree angle to help felicitate swallowing. Pt states she just is not comfortable in the chair. Spoke with Daughter to give update on pt's swallowing difficulties and pt not being compliant with sitting up to eat. Encouraged family to help encourage pt to get up to chair more often. Daughter Brenda very appreciative of call and voiced concerns with pt returning home alone and not being able to take care of herself. Pt in bed at this time call light within reach.
[2022-03-21 10:35] VITALS: PULSE 67; RESP 16
[2022-03-21] MEDS: Albuterol 2.5 MG/3 ML VIAL.NEB. INHALATION (10:35)
[2022-03-21 11:26] LABS: Bedside Glucose 202 mg/dL (74-106)
[2022-03-21 16:00] VITALS: BP 120/69; PULSE 78; RESP 18; TEMP 36.2; O2SAT 99
[2022-03-21 17:41] LABS: Bedside Glucose 101 mg/dL (74-106)
--- NOTE | 2022-03-21 18:43 | NURSING ---
Pt c/o of bilateral foot pain on first metatarsal. Metatarsal is warm, red, swollen and tender to the touch. Dr. Santos updated new order for prednisone 20mg x1.
[2022-03-21] MEDS: Loperamide 2 MG Capsule PO (19:56)
[2022-03-21] MEDS: MELATONIN 3 MG TABLET 6 MG PO (19:56)
[2022-03-21] MEDS: Mirtazapine 15 MG Tablet 7.5 MG PO (19:56)
[2022-03-21] MEDS: predniSONE 20 MG Tablet PO (19:57)
[2022-03-21 20:55] VITALS: O2SAT 99
[2022-03-21 21:51] LABS: Bedside Glucose 178 mg/dL (74-106)
[2022-03-21 23:15] VITALS: PULSE 78; RESP 18; O2SAT 97
[2022-03-22 06:24] LABS: Prothrombin Time (Protime)PT. 41.8 SECONDS (11.7-14.9)
[2022-03-22 06:31] LABS: International Normalized Ratio 4.4
[2022-03-22 06:36] LABS: Bedside Glucose 217 mg/dL (74-106)
--- NOTE | 2022-03-22 06:57 | NURSING ---
Notified by lab of INR value of 4.4 this morning. Physician to be notified.
[2022-03-22] MEDS: Budesonide Respules 0.5 MG/2 ML AMPUL.NEB. INHALATION ×2 (07:14→18:52)
[2022-03-22 07:16] VITALS: PULSE 80; RESP 18; O2SAT 99
--- NOTE | 2022-03-22 07:23 | NURSING ---
Dr. Santos notified of INR value of 4.4. New order to continue to hold coumadin.
[2022-03-22] MEDS: Carvedilol 12.5 MG Tablet PO ×2 (08:35→20:51)
[2022-03-22] MEDS: SACUBITRIL/VALSARTAN 24/26 MG TABLET 1 EACH PO ×2 (08:35→20:51)
[2022-03-22] MEDS: Fluconazole 100 MG Tablet PO (08:35)
[2022-03-22] MEDS: Insulin Lispro 100 UNIT/ML INSULN.PEN 7 UNIT SC ×3 (08:35→18:02)
[2022-03-22] MEDS: Umeclidinium Bromide Inhaler 1 PUFF INHALATION (08:35)
[2022-03-22] MEDS: Pantoprazole Sodium 20 MG Tablet PO (08:36)
[2022-03-22 08:55] VITALS: BP 132/57; PULSE 81
--- NOTE | 2022-03-22 10:42 | NURSING ---
Pt c/o of not getting enough fluids during Jeong water protocol and is worried about kidney function and now having gout. After completing oral care and waiting 30min this nurse gave pt 190ml of water checked on pt 60min later and pt only drank 20ml of non-thickened water. Educated pt on importance of fluid intake especially since she does not like the thicken liquids with meals. Pt continues to lie at a 30 degrees when eating and drinking pt continues to refuse ST recommendations. Will continue to monitor oral intake. Call light within reach.
[2022-03-22 10:45] LABS: Bedside Glucose 325 mg/dL (74-106)
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
[2022-03-22 14:07] VITALS: BP 142/86; PULSE 82; RESP 20; TEMP 36.1; O2SAT 94
[2022-03-22] MEDS: Phytonadione (Vit K1) 5 MG TABLET PO (14:20)
[2022-03-22 16:31] LABS: Bedside Glucose 133 mg/dL (74-106)
[2022-03-22] MEDS: predniSONE 20 MG Tablet PO (17:59)
[2022-03-22 18:52] VITALS: PULSE 85; RESP 22
[2022-03-22] MEDS: MELATONIN 3 MG TABLET 6 MG PO (20:51)
[2022-03-22] MEDS: Mirtazapine 15 MG Tablet 7.5 MG PO (20:52)
[2022-03-22 21:26] LABS: Bedside Glucose 167 mg/dL (74-106)
[2022-03-23 06:08] LABS: International Normalized Ratio 1.8; Prothrombin Time (Protime)PT. 20.4 SECONDS (11.7-14.9)
[2022-03-23 06:21] LABS: Bedside Glucose 242 mg/dL (74-106)
[2022-03-23 07:25] VITALS: PULSE 72; RESP 18; O2SAT 98
[2022-03-23] MEDS: Budesonide Respules 0.5 MG/2 ML AMPUL.NEB. INHALATION (07:25)
[2022-03-23] MEDS: Albuterol 2.5 MG/3 ML VIAL.NEB. INHALATION (07:25)
[2022-03-23] MEDS: Insulin Lispro 100 UNIT/ML INSULN.PEN SC ×3 (08:39→22:07)
[2022-03-23] MEDS: Insulin Lispro 100 UNIT/ML INSULN.PEN 7 UNIT SC ×3 (08:39→17:38)
[2022-03-23] MEDS: SACUBITRIL/VALSARTAN 24/26 MG TABLET 1 EACH PO ×2 (08:40→20:43)
[2022-03-23] MEDS: Carvedilol 12.5 MG Tablet PO ×2 (08:40→20:43)
[2022-03-23] MEDS: Aspirin 81 MG TAB.CHEW PO (08:40)
[2022-03-23] MEDS: predniSONE 20 MG Tablet PO (08:40)
[2022-03-23] MEDS: Pantoprazole Sodium 20 MG Tablet PO (08:40)
[2022-03-23] MEDS: Fluconazole 100 MG Tablet PO (08:40)
[2022-03-23] MEDS: Loperamide 2 MG Capsule PO (08:56)
[2022-03-23] MEDS: Umeclidinium Bromide Inhaler 1 PUFF INHALATION (09:03)
[2022-03-23 10:00] VITALS: PULSE 88; RESP 18; O2SAT 93
--- NOTE | 2022-03-23 10:50 | PCM.PN.ID ---
Physical Exam Narrative Feeling better, dyspnea improved, cough is more productive. No fever. Some occasional diarrhea. Const alert General Appearance: cooperative Resp Auscultation: rhonchi Cardio regular rate and regular rhythm GI soft to palpation, non-tender and non-distended Skin no rashes or lesions noted ID ID: Route of nutrition/ use of supplements: [] Nutritional Intake: [] IV Site: [] Crane Catheter: [] Assessment & Plan Assessment/Plan (1) Cavitary pneumonia: PLAN: Sputum AFB x3 neg, but did show heavy yeast. CT guided bx on 03/11 with path neg for malignancy. Heavy alistair albicans alse seen on repeat sputum cx. Cont fluc. Feeling better. Plan on one month of fluc, repeat CT prior to stopping with pulm and ID followup. Will follow
[2022-03-23 11:16] LABS: Bedside Glucose 166 mg/dL (74-106)
[2022-03-23 11:25] VITALS: PULSE 73; RESP 20; TEMP 36.6; O2SAT 97
--- NOTE | 2022-03-23 11:26 | PCM.PN.BLA ---
Progress Note Afebrile Vital signs stable Maintaining an oxygen saturation of 94 to 99% on 2 L nasal cannula. Very poor oral intake. The blood sugar record was reviewed. Fasting blood sugar was high at 242 but I elected not to use the sliding scale at at bedtime. The BS at lunch is 166. The INR is 1.8 today, down from 4.4 yesterday. She did receive 5 mg of p.o. vitamin K. She is on Prednisone for acute gouty arthritis and the steward/stewardess room is adding a low purine restriction to her diet. She continues to c/o pain in her feet and tells me that it is unchanged with the prednisone. she is sitting in a chair watching TV when I entered the room. Does not look to be in any distress. I was able to remove both socks today without her c/o pain....this was not the case yesterday. the swelling, redness and warmth in the great toes is completely resolved. No peripheral edema. Impressions 1. recurrent acute gouty arthritis of both great toes. - resolved. She received the third and final dose of Prednisone today 2. Hyperuricemia - she is on a low purine diet now. Will start on a low-dose of Febuxostat in 2 days. will need to have the uric acid rechecked in 1 month and if the UA is still > 6 consider increasing the dose of Febuxostat. Visit Charges Inpatient E&M: [id number] [facility] Subs L1
[2022-03-23 12:34] VITALS: O2SAT 98
[2022-03-23 13:44] VITALS: BP 141/70
[2022-03-23 17:05] LABS: Bedside Glucose 198 mg/dL (74-106)
[2022-03-23] MEDS: Mirtazapine 15 MG Tablet 7.5 MG PO (20:43)
[2022-03-23] MEDS: MELATONIN 3 MG TABLET 6 MG PO (20:43)
[2022-03-23 20:50] VITALS: BP 155/69; PULSE 84; RESP 18
[2022-03-23 21:31] LABS: Bedside Glucose 297 mg/dL (74-106)
[2022-03-24 06:16] LABS: Bedside Glucose 151 mg/dL (74-106)
[2022-03-24 06:55] VITALS: PULSE 99; RESP 20; O2SAT 98
[2022-03-24] MEDS: Budesonide Respules 0.5 MG/2 ML AMPUL.NEB. INHALATION ×2 (06:55→19:04)
[2022-03-24] MEDS: Carvedilol 12.5 MG Tablet PO ×2 (08:45→20:13)
[2022-03-24] MEDS: Pantoprazole Sodium 20 MG Tablet PO (08:45)
[2022-03-24] MEDS: Fluconazole 100 MG Tablet PO (08:45)
[2022-03-24] MEDS: SACUBITRIL/VALSARTAN 24/26 MG TABLET 1 EACH PO ×2 (08:45→20:13)
[2022-03-24] MEDS: Aspirin 81 MG TAB.CHEW PO (08:45)
[2022-03-24] MEDS: Insulin Lispro 100 UNIT/ML INSULN.PEN 7 UNIT SC ×2 (08:45→12:10)
[2022-03-24] MEDS: Insulin Lispro 100 UNIT/ML INSULN.PEN SC ×3 (08:47→22:00)
[2022-03-24] MEDS: Umeclidinium Bromide Inhaler 1 PUFF INHALATION (08:51)
[2022-03-24 11:05] LABS: Bedside Glucose 192 mg/dL (74-106)
--- NOTE | 2022-03-24 12:16 | NURSING ---
Pt in bed at this time eating lunch pt refused to sit at a [address] she states I become more short of breath while sitting up. Explained this risk of not sitting up to eat. Pt states I want to go home I can do things for myself at home. Explained to pt that she has becomes short of breath with movement and that she is dependent with cleaning self after bathroom and dressing. Pt states I can do all that at home and I would like to speak with a workers compensation specialist. Will update Wedding Florist with pt's request. Call light within reach.
[2022-03-24 12:29] VITALS: PULSE 62; RESP 20; TEMP 36.7; O2SAT 98
[2022-03-24 13:46] VITALS: BP 147/71
--- NOTE | 2022-03-24 15:22 | CASEMGMT ---
Social Work Pt requesting to speak with this worker. Met with pt. Pt explained she received a letter from [facility] stating her redetermination for HILDA was due, but then she ended up in the hospital and concerned about losing coverage. Pt had letter with her. Pt signed and SW faxed to [facility]. SW left message with KAMLESH Dunlap updating her and offering assistance. Pt appreciative. SW left another message with [facility] to f/u on resolution for a safe discharge to apt. Saadia Alvarenga, PRINTED CIRCUIT BOARD DRAFTER DRY MILL WORKER
[2022-03-24 15:29] VITALS: PULSE 86; RESP 20
[2022-03-24] MEDS: Albuterol 2.5 MG/3 ML VIAL.NEB. INHALATION ×2 (15:29→19:04)
[2022-03-24 17:05] LABS: Bedside Glucose 51 mg/dL (74-106)
[2022-03-24] MEDS: Jantoven 2 MG Tablet PO (18:40)
[2022-03-24 19:05] VITALS: PULSE 92; RESP 20
[2022-03-24] MEDS: MELATONIN 3 MG TABLET 6 MG PO (20:13)
[2022-03-24] MEDS: Mirtazapine 15 MG Tablet 7.5 MG PO (20:14)
[2022-03-24 20:17] VITALS: PULSE 93; RESP 20; O2SAT 94
[2022-03-24 21:16] LABS: Allen Test Positive; Base Excess 7 mmol/L (-2 to +2); Bicarbonate 31.4 mmol/L (22-26); Blood Gas Specimen Type ART; O2 Delivery Device Cannula; PO2 73 mmHG (75-100); SITE L Radial; SO2 94 % (95-99); Total Carbon Dioxide 33 mmol/L; pCO2 49.6 mmHg (35-45); pH 7.41 (7.35-7.45)
[2022-03-24 21:20] LABS: Bedside Glucose 301 mg/dL (74-106)
[2022-03-25 06:31] LABS: Bedside Glucose 158 mg/dL (74-106)
[2022-03-25 07:05] VITALS: PULSE 92; RESP 24; O2SAT 92
[2022-03-25] MEDS: Budesonide Respules 0.5 MG/2 ML AMPUL.NEB. INHALATION ×2 (07:05→19:44)
[2022-03-25] MEDS: Albuterol 2.5 MG/3 ML VIAL.NEB. INHALATION ×4 (07:05→19:44)
[2022-03-25] MEDS: Insulin Lispro 100 UNIT/ML INSULN.PEN SC ×2 (09:12→14:03)
[2022-03-25] MEDS: Aspirin 81 MG TAB.CHEW PO (09:12)
[2022-03-25] MEDS: Insulin Lispro 100 UNIT/ML INSULN.PEN 7 UNIT SC ×2 (09:12→14:02)
[2022-03-25] MEDS: Fluconazole 100 MG Tablet PO (09:13)
[2022-03-25] MEDS: Umeclidinium Bromide Inhaler 1 PUFF INHALATION (09:13)
[2022-03-25] MEDS: Pantoprazole Sodium 20 MG Tablet PO (09:13)
[2022-03-25] MEDS: Carvedilol 12.5 MG Tablet PO ×2 (09:13→21:09)
[2022-03-25] MEDS: SACUBITRIL/VALSARTAN 24/26 MG TABLET 1 EACH PO (09:13)
[2022-03-25 10:40] LABS: Bedside Glucose 191 mg/dL (74-106)
[2022-03-25] MEDS: Loperamide 2 MG Capsule PO (10:42)
[2022-03-25 10:45] VITALS: PULSE 88; RESP 24
--- NOTE | 2022-03-25 13:57 | CASEMGMT ---
Social Work Spoke with pt about decline in condition today and DC plans. Pt reports to have trouble breathing more today. Nursing and Dr. jT lizama. Discussed DC plan as pt agreed she cannot return home in this condition. Pt agreeable to SNF - referenced in-network SNF list previously provided by SW. Pt prefers [facility] or [facility]. Referrals made. SW to continue to follow. Saadia Alvarenga, SUPERVISOR SHIPFITTERS DYE WEIGHER HELPER
[2022-03-25 15:28] VITALS: BP 145/70; PULSE 86; RESP 18; TEMP 36.4; O2SAT 97
--- NOTE | 2022-03-25 16:10 | NURSING ---
Notified patient and of staff member testing positive for COVID
[2022-03-25 16:45] LABS: Bedside Glucose 30 mg/dL (74-106)
--- NOTE | 2022-03-25 17:01 | CASEMGMT ---
Social Work Insurance issued LCD 03/27, DC 03/28. Spoke with pt about DC date and referrals to SNFs have been made. Pt continues to express she is not feeling well, very SOB, hot, uncomfortable. Pt has no covers on, AC on lowest setting, visibly sweating. Provided pt with small fan on nightstand, which comforted pt. Per nursing, vitals are stable currently. Pt requesting Dr. Spencer to assess and wants to be sent to the hospital to get fixed. Pt wants a solution to her SOB and to see [facility] for evaluation and treatment. Explained appeal rights for DC to pt. Pt wants to see what the has to say and then may appeal. SW to f/u w/pt tomorrow. Left communication to Received call from dtr explaining she was not aware of insurance going to issue DC date, etc. Explained to dtr at POC provided NRD and EDC date given from insurance. Explained SW has been speaking with pt almost daily, especially yesterday and today on insurance update possibly issuing DC date. Pt agreed to referral to SNF. is aware of pt's report of change in condition. Broached topic that PNA exacerbated COPD and her condition may be in end stages, thus treatment would be focused on comfort care, i.e. hospice. Dtr appreciative of explanation and requesting call from Dr. Spencer after he speaks with pt. Communication left for Dr. Spencer. Dtr inquired about having pt transfer to SNF closer to her in [place]. Offered to research nearby SNFs on Medicare.gov/[email or web address] and contact SW with several choices for SW to refer to. Dtr agreed. SW to continue to follow. Saadia Alvarenga, KANIKA THAOW
[2022-03-25] MEDS: Jantoven 2 MG Tablet PO (17:20)
--- NOTE | 2022-03-25 19:38 | DS.PCM_ITS ---
Providers Date of Admission: 03/13/22 Primary Care Physician: Dr. Yudith Rosales DO Consultations 03/15/22 07:47 Consult: Infectious Disease Routine Consulting Provider: J Carlos Scherer Reason for Consult: Cavitary alistair pneumonia, TB ruled out. EMERGENT Consult: No Notified: Yes Date Notified: 03/15/22 Time Notified: 07:47 Method of Notification: Answering Service 03/17/22 17:11 Consult: Gastroenterology Routine Consulting Provider: [facility] Reason for Consult: Dysphagia, MBS retention pudding/cookie mid/lower esophagus, retrograde kalina EMERGENT Consult: No Notified: Yes Date Notified: 03/17/22 Time Notified: 17:12 Method of Notification: Verbal Reason For Visit: COPD, R LOWER LOBE PNEUMONIA Diagnosis Discharge Diagnosis (1) Cavitary pneumonia: Status: Acute Code(s): J18.9 - Pneumonia, unspecified organism; J98.4 - Other disorders of lung Medications at Discharge Home Medications omeprazole 20 mg PO DAILY 12/30/14 tiotropium bromide 2.5 mcg/actuation mist for inhalation 1 puff INHALATION DAILY #4 g 07/29/20 carvedilol 12.5 mg PO BID 03/13/22 acetaminophen 1,000 mg PO Q6H PRN PRN #0 tab 03/25/22 albuterol sulfate 2.5 mg INHALATION Q2H PRN PRN #0 ml 03/25/22 budesonide 0.5 mg INHALATION BID.RT #0 ml 03/25/22 fluconazole 100 mg PO 0800 19 Days #0 tab 03/25/22 loperamide 2 mg PO Q8H PRN PRN #0 cap 03/25/22 melatonin 6 mg PO QHS #0 tab 03/25/22 mirtazapine 7.5 mg PO QHS #0 tab 03/25/22 Hospital Course Operations None Procedures None Summary of Care Provided Minutes Spent on Discharge: 35 Hospital Course: 81 year old female with below past medical history hospitalized for acute respiratory failure secondary to COPD exacerbation, right cavitary pneumonia, complicated by NSTEMI, TB ruled out, admitted to TCU with debility, here for rehabilitation, strengthening, prior to discharge home alone. Dr. Scherer recommended Fluconazole 100mg daily thru 04/16/2022 for cavitary fungal pneumonia. Resident dying, she has 3 to 6 months to live, possibly less. [facility], [facility]. Physical Exam Const alert General Appearance: cooperative HEENT normocephalic Eyes PERRL and EOMs intact bilaterally Neck supple, no JVD and no carotid bruits Resp normal respiratory effort, normal air movement and clear to auscultation bilaterally Cardio regular rate and regular rhythm GI normal to inspection, nondistended, normoactive bowel sounds, non-tender and non-distended Extremity normal capillary refill General Extremity: Negative for edema Skin no rashes or lesions noted General Skin Exam: no breakdown Psych affect normal Appearance: appropriate Medical Records Data Medical Nutrition Assessment Dietitian: Malnutrition Criteria Met Start: 03/15/22 15:32 Freq: Status: Active Protocol: Document 03/15/22 15:32 LO (Rec: 03/15/22 15:32 LO Laptop) Nutrition Malnutrition Evidence of Malnutrition Exists Yes Malnutrition (severe): Chronic Evidenced By Suboptimal Energy Intake ( Severe),Physical Changes ( Severe) Clinical Problem Chronic Disease or Condition Related Malnutrition Etiology severe, chronic malnutrition related to inadequate energy intake w/ increased energy needs due to pulmonary disease Signs/Symptoms as evidenced by estimated energy intake meeting <75% of estimated energy needs >3 months; severe muscle wasting/ fat loss evident per physical exam- depletion noted in orbital areas, temples, scapula, lower extremities; protrusion of clavicle, acromion process; BMI 15 Status Active Problem Recommendation Dietitian Recommendations/Changes continue regular, no added salt given severe malnutrition ; NO gluten restriction per pt ; nepro 240mL w/ meals and magic cup BID for additional calories/protein if consumed. Weight / BMI Weight Weight: 41.504 kg Body Mass Index (BMI) 15.0 ABG / Lab / Microbiology Data Result Diagrams: 03/21/22 05:04 03/21/22 05:04 Laboratory: Laboratory Results - last 24 hr 03/24/22 21:16: POC Glucose 301 H 03/25/22 06:11: POC Glucose 158 H 03/25/22 10:34: POC Glucose 191 H 03/25/22 16:33: POC Glucose 30 L* Microbiology: Microbiology 03/22/22 09:49 Nasal Secretion SARS-CoV-2 Antigen (Rapid) - Final 03/20/22 16:00 Nasal Secretion SARS-CoV-2 Antigen (Rapid) - Final 03/18/22 14:45 Stool C. difficile DNA Amplification - Final 03/15/22 20:40 Sputum, Expectorated/Coughed Gram Stain - Final 03/15/22 20:40 Sputum, Expectorated/Coughed Respiratory Culture - Final Presumptive C albicans ABG: ABG 03/24/22 21:10 Specimen Type ART Sample Site L Radial pH 7.41 Bicarbonate Actual 31.4 H Total CO2 33 Base Excess 7 H O2 Saturation 94 L ABG pCO2 49.6 H ABG pO2 73 L Renaldo Test Positive O2 Delivery Device Cannula Liter Flow 2.0 D/C Instructions Discharge Diet: No restrictions Discharge Activity: Return to Normal Activity, May Shower and Use Walker Weight Bearing Status: Weight bearing as tolerated Additional Instructions: [facility], [facility]. Please Follow Up With: Baltazar Cuello MD When: Cancel, resident dying. Meaningful Use Info Meaningful Use Diagnoses (Choose all that apply): None applicable Discharge Plan Admission Admit Date/Time: 03/13/22 15:30 Primary Reason for Your Visit: Debility. Attending Provider: Luis Daniel Spencer Chi Primary Care Provider: Yudith Rosales Consulting Providers: J Carlos Scherer Instructions Additional Instructions / Restrictions: [facility], [facility]. Discharge Orders/Prescriptions Prescriptions: New acetaminophen 500 mg Tablet 1,000 mg PO Q6H PRN PRN (Reason: Pain Score 1-10) Qty: 0 RF: 0 albuterol sulfate 2.5 mg /3 mL (0.083 %) Solution For Nebulization 2.5 mg inhalation Q2H PRN PRN (Reason: Dyspnea, wheezing) Qty: 0 RF: 0 budesonide 0.5 mg/2 mL Suspension For Nebulization 0.5 mg inhalation BID.RT Qty: 0 RF: 0 fluconazole 100 mg Tablet 100 mg PO 0800 19 Days Qty: 0 RF: 0 loperamide 2 mg Capsule 2 mg PO Q8H PRN PRN (Reason: Diarrhea) Qty: 0 RF: 0 melatonin 3 mg Tablet 6 mg PO QHS Qty: 0 RF: 0 mirtazapine 15 mg Tablet 7.5 mg PO QHS Qty: 0 RF: 0 Continued tiotropium bromide 2.5 mcg/actuation mist 1 puff inhalation DAILY Qty: 4 RF: 2 omeprazole 20 MG capsule 20 mg PO DAILY RF: 0 carvedilol 12.5 mg tablet 12.5 mg PO BID RF: 0 Discontinued albuterol sulfate 1 PUFF inhaler 2 puff inhalation Q4H PRN PRN (Reason: Sob &/Or Wheezing) Qty: 2 RF: 0 atorvastatin 40 mg tablet 40 mg PO QHS RF: 0 warfarin 2 mg tablet 4 mg PO SUTUSA RF: 0 warfarin 2 mg tablet 2 mg PO MOWETHFR RF: 0 aspirin 81 mg Tablet,Chewable 81 mg PO DAILY RF: 0 enoxaparin 40 mg/0.4 mL syringe 40 mg subcut DAILY RF: 0 Dulera 200-5 mcg/actuation HFA aerosol inhaler 2 inh INHALATION BID RF: 0 Entresto 24-26 mg tablet 1 tab PO BID RF: 0 Referrals / Follow Up: Yudith Rosales DO [Primary Care Provider] - Disposition Disposition (needs filled in before D/C Order can be placed): Hospice in Medical Facility
[2022-03-25 19:44] VITALS: PULSE 89; RESP 20; O2SAT 93
--- NOTE | 2022-03-25 19:44 | PCM.TXEXTCAR ---
Diet 03/25/22 17:57 Diet: Regular - General Is pt able to select menu?: Yes Routine Orders/Code Status Code Status: Full Code Wound(s) coccyx: Wound Type: Pressure Injury Dressing Change: Mepilex Left lateral ribs: Wound Type: Puncture Dressing Change: Dry Sterile Dressing Therapies Weight Bearing: Weight bearing as tolerated Problem/Diagnosis (1) Cavitary pneumonia: Status: Acute Allergies/Procedures Done in Hospital Allergies diltiazem HCl [From Cardizem] Allergy (Verified 03/20/22 12:18) Angioedema fluticasone furoate [From Breo Ellipta] Allergy (Verified 03/20/22 12:18) PT UNSURE OF REACTION gatifloxacin [From Tequin] Allergy (Verified 03/20/22 12:18) Unknown hydrochlorothiazide [From Maxzide] Allergy (Verified 03/20/22 12:18) Other Penicillins [PCN] Allergy (Verified 03/20/22 12:18) Hives triamterene [From Maxzide] Allergy (Verified 03/20/22 12:18) Other vilanterol [From Breo Ellipta] Allergy (Verified 03/20/22 12:18) PT UNSURE OF REACTION codeine Adverse Reaction (Verified 03/20/22 12:18) Upset Stomach Procedures: None Type of Care/Length of Stay Estimated LOS: More Than 30 Days Type of Care Needed: Intermediate Rehab Potential: Poor Prognosis: Poor Additional Orders/Day of Discharge Day of Discharge: 03/28/22 Dietary and Speech Recommendations Dietitian Recommendations/Changes: Continue regular, no added salt given severe malnutrition; NO gluten restriction per resident Give nepro 120 mL w/ meals and magic cup BID for additional calories/protein if consumed per res request. Give 4 oz ensure enlive w/ medpass tid for increased nutrition if consumed per res request. Follow Up Care Please Follow Up With: Baltazar Cuello MD When: 1 week Please Follow Up With: Gulshan Membreno PRODUCTION METAL SPRAYER, PRODUCTION METAL SPRAYER-C When: 2 weeks Please Follow Up With: J Carlos Scherer MD When: 1 week pneumonia Discharge Plan Admission Admit Date/Time: 03/13/22 15:30 Primary Reason for Your Visit: Debility. Attending Provider: uLis Daniel Spencer Chi Primary Care Provider: Yudith Rosales Consulting Providers: J Carlos Scherer Instructions Additional Instructions / Restrictions: [facility], [facility]. Discharge Orders/Prescriptions Prescriptions: New acetaminophen 500 mg Tablet 1,000 mg PO Q6H PRN PRN (Reason: Pain Score 1-10) Qty: 0 RF: 0 albuterol sulfate 2.5 mg /3 mL (0.083 %) Solution For Nebulization 2.5 mg inhalation Q2H PRN PRN (Reason: Dyspnea, wheezing) Qty: 0 RF: 0 budesonide 0.5 mg/2 mL Suspension For Nebulization 0.5 mg inhalation BID.RT Qty: 0 RF: 0 fluconazole 100 mg Tablet 100 mg PO 0800 19 Days Qty: 0 RF: 0 loperamide 2 mg Capsule 2 mg PO Q8H PRN PRN (Reason: Diarrhea) Qty: 0 RF: 0 melatonin 3 mg Tablet 6 mg PO QHS Qty: 0 RF: 0 mirtazapine 15 mg Tablet 7.5 mg PO QHS Qty: 0 RF: 0 Continued tiotropium bromide 2.5 mcg/actuation mist 1 puff inhalation DAILY Qty: 4 RF: 2 omeprazole 20 MG capsule 20 mg PO DAILY RF: 0 carvedilol 12.5 mg tablet 12.5 mg PO BID RF: 0 Discontinued albuterol sulfate 1 PUFF inhaler 2 puff inhalation Q4H PRN PRN (Reason: Sob &/Or Wheezing) Qty: 2 RF: 0 atorvastatin 40 mg tablet 40 mg PO QHS RF: 0 warfarin 2 mg tablet 4 mg PO SUTUSA RF: 0 warfarin 2 mg tablet 2 mg PO MOWETHFR RF: 0 aspirin 81 mg Tablet,Chewable 81 mg PO DAILY RF: 0 enoxaparin 40 mg/0.4 mL syringe 40 mg subcut DAILY RF: 0 Dulera 200-5 mcg/actuation HFA aerosol inhaler 2 inh INHALATION BID RF: 0 Entresto 24-26 mg tablet 1 tab PO BID RF: 0 Referrals / Follow Up: Yudith Rosales DO [Primary Care Provider] - Disposition Disposition (needs filled in before D/C Order can be placed): Hospice in Medical Facility
[2022-03-25 21:00] VITALS: PULSE 88; RESP 20; O2SAT 99
[2022-03-25] MEDS: morphine (oral solution) 10MG/0.5ML Syringe 5 MG SL/PO (21:06)
[2022-03-25] MEDS: MELATONIN 3 MG TABLET 6 MG PO (21:09)
[2022-03-25] MEDS: Mirtazapine 15 MG Tablet 7.5 MG PO (21:09)
[2022-03-26 07:05] VITALS: PULSE 98; RESP 17; O2SAT 93
[2022-03-26 07:05] LABS: Bedside Glucose 69 mg/dL (74-106)
[2022-03-26 07:05] LABS: Bedside Glucose 99 mg/dL (74-106)
[2022-03-26 07:05] LABS: Bedside Glucose 62 mg/dL (74-106)
[2022-03-26 07:05] LABS: Bedside Glucose 47 mg/dL (74-106)
--- NOTE | 2022-03-26 08:21 | MDS.RN ---
Information for the mds was obtained from review of the clinical record, interview of resident, staff, and direct observation of resident's care.
[2022-03-26] MEDS: Pantoprazole Sodium 20 MG Tablet PO (08:52)
[2022-03-26] MEDS: Fluconazole 100 MG Tablet PO (08:52)
[2022-03-26] MEDS: Carvedilol 12.5 MG Tablet PO ×2 (08:52→20:36)
[2022-03-26] MEDS: Umeclidinium Bromide Inhaler 1 PUFF INHALATION (08:53)
--- NOTE | 2022-03-26 10:04 | CASEMGMT ---
Addendum entered by Saadia Alvarenga 03/26/22 15:57: Spoke with Fabi WHITLOCK to update on DC plans. Addendum entered by Saadia Alvarenga 03/26/22 15:41: Hospice met with pt and conference call with dtr. Pt agreed to admit. Hospice to follow at SNF and was made aware of her wishes. [facility] did accept pt. After discussion with [facility], pt is accepted and can admit 03/28. Pt/dtr/hospice notified. CC notified. Cot transport scheduled through [facility] for 10 am. PASRR completed. Pt/dtr expressed great appreciation. Plan: DC to [facility] 03/28, [facility] Original Note: Social Work Followed up with pt from discussion with last evening. Pt stated told she was dying and recommended hospice. Pt is agreeable to hospice with [facility]. Pt expressed this sucks, but I get it. Provided supportive listening and validated feelings. Discussed end of life wishes. Pt would like to be buried in the [facility] and use [facility] [facility]. She would like to go to one more yard sale and at her home, which is located next to the cemetery/[facility]. SW agreed to make hospice and dtr aware of her wishes. Pt expressed great appreciation for SW assistance. Referral made to [facility]. Hospice to contact SW with time to visit pt today and contact dtr to include her in the conference call, since she is working out of town. Contacted dtr to follow up. Dtr expressed sadness. Provided supportive listening. Explained hospice referral was made and pt's end of life wishes. Discussed end-of-life signs, comfort medications and effects on pts. DC plans will be in place by end of day for dtr and pt to be aware of. Dtr expressed great appreciation for Dr lezama and SW assistance. Spoke with [facility] to update on hospice decision. Pt has traditional Medicaid secondary. [facility] to confirm admission for 03/28. Will await outcome. SW to continue to follow. KANIKA Shaw
[2022-03-26 15:52] VITALS: BP 145/74; PULSE 86; RESP 18; TEMP 36.4; O2SAT 97
[2022-03-26 20:25] VITALS: PULSE 94; RESP 24
[2022-03-26] MEDS: morphine (oral solution) 10MG/0.5ML Syringe 10 MG SL/PO (20:26)
[2022-03-26 20:34] VITALS: BP 135/82; PULSE 89; RESP 24; O2SAT 96
[2022-03-26] MEDS: MELATONIN 3 MG TABLET 6 MG PO (20:36)
[2022-03-26] MEDS: Mirtazapine 15 MG Tablet 7.5 MG PO (20:36)
[2022-03-27 06:58] VITALS: PULSE 70; RESP 18
[2022-03-27] MEDS: Budesonide Respules 0.5 MG/2 ML AMPUL.NEB. INHALATION ×2 (06:58→19:14)
[2022-03-27] MEDS: Umeclidinium Bromide Inhaler 1 PUFF INHALATION (08:48)
[2022-03-27] MEDS: Fluconazole 100 MG Tablet PO (08:48)
[2022-03-27] MEDS: Pantoprazole Sodium 20 MG Tablet PO (08:48)
[2022-03-27] MEDS: Carvedilol 12.5 MG Tablet PO ×2 (08:49→21:00)
[2022-03-27 08:50] VITALS: BP 141/78; PULSE 83
[2022-03-27] MEDS: Acetaminophen 500 MG Tablet 1000 MG PO (09:05)
[2022-03-27 10:00] VITALS: PULSE 83; RESP 20; O2SAT 96
[2022-03-27 13:57] VITALS: BP 130/70; PULSE 72; RESP 16; TEMP 36.1; O2SAT 96
--- NOTE | 2022-03-27 19:03 | PCA ---
Patient resting comfortable in bed. DESIGN PRINTER BALLOON approached patient offering HS care. i had cleaned earlier and i will be leaving in the morning. I would rather not be bothered tonight.
[2022-03-27] MEDS: Albuterol 2.5 MG/3 ML VIAL.NEB. INHALATION (19:14)
[2022-03-27 19:15] VITALS: PULSE 78; RESP 18
[2022-03-27 20:59] VITALS: BP 122/66; PULSE 72
[2022-03-27] MEDS: Mirtazapine 15 MG Tablet 7.5 MG PO (21:00)
[2022-03-27] MEDS: MELATONIN 3 MG TABLET 6 MG PO (21:00)
[2022-03-27] MEDS: morphine (oral solution) 10MG/0.5ML Syringe 10 MG SL/PO (21:02)
--- NOTE | 2022-03-27 21:17 | NURSING ---
SpO2 98% on 3 lpm via nc. This nurse attempted to turn O2 down to 2 lpm and pt requested o2 be removed. Pt instructed to call for staff for any sxs dyspnea. Removed nasal cannula and phone call placed to respiratory therapy- spoke w/ Veronica. Will continue to monitor. Call light w/ in reach.
--- NOTE | 2022-03-28 02:11 | NURSING ---
Spot check SpO2 at 85% on room air. O2 applied at 2 lpm via nc. Level increased to 94%. Resp even, shallow, and unlabored. Will continue to monitor.
[2022-03-28 06:20] VITALS: O2SAT 99
--- NOTE | 2022-03-28 06:20 | NURSING ---
Pt acknowledges dc to SNF today. Informs this nurse purse and cell phone will need to be sent. This nurse placed phone fine sander in purse and informed pt another staff member will have gather belongings before transfer.
[2022-03-28 07:13] VITALS: PULSE 91; RESP 16
[2022-03-28] MEDS: Budesonide Respules 0.5 MG/2 ML AMPUL.NEB. INHALATION (07:13)
[2022-03-28 07:39] LABS: Absolute Lymphocyte Count 0.94 X10^3/uL (0.83-4.51); Absolute Neutrophil Count 8.1 X10^3/uL (2.0-7.7); Basophil# 0.03 X10^3/uL; Basophil% 0.3 % (0-1); Eosinophil# 0.44 X10^3/uL; Eosinophils% 4.3 % (0-5); Hematocrit 33.1 % (37-47); Hemoglobin 9.8 g/dL (12.0-15.0); Lymphocyte # 0.94 X10^3/ul (0.83-4.51); Lymphocyte % 9.3 % (19-41); Mean Corp Hgb Conc 29.6 g/dL (32-36); Mean Corpuscular Hgb 29.3 pg (27.0-32.0); Mean Corpuscular Volume 98.8 fL (81-99); Mean Platelet Vol. 10.7 fl (6.2-12.0); Monocyte# 0.57 X10^3/uL; Monocyte% 5.6 % (0-10); NRBC Flagged by Analyzer 0 % (0-5); Neutrophil # 8.13 X10^3/uL (2.7-7.7); Neutrophil % 80.2 % (47-70); Platelet Count 162 K/mm3 (150-450); RBC Distribution Width CV 15.2 % (11.6-14.6); RBC Distribution Width SD 55.5 fl (35.1-43.9); Red Blood Count 3.35 M/mm3 (4.2-5.4); White Blood Count 10.1 K/mm3 (4.4-11.0)
[2022-03-28 07:58] LABS: Anion Gap 3 (5-15); BUN 46 mg/dL (7-18); BUN/Creat Ratio 29.3 RATIO (10-20); Calcium,Total 7.8 mg/dL (8.5-10.1); Chloride 103 mmol/L (98-107); Creatinine, Serum 1.57 mg/dL (0.55-1.02); EST Glomerular Filtration Rate 34 mL/min (>60); Est Glom Filt Rate - Afr Amer 41 mL/min (>60); Estimated Creatinine Clearance 18.73 ml/min; Glucose 179 mg/dL (74-106); Potassium 4.4 mmol/L (3.5-5.1); Sodium Level 142 mmol/L (136-145)
[2022-03-28] MEDS: Pantoprazole Sodium 20 MG Tablet PO (08:31)
[2022-03-28] MEDS: Carvedilol 12.5 MG Tablet PO (08:31)
[2022-03-28] MEDS: Fluconazole 100 MG Tablet PO (08:31)
[2022-03-28] MEDS: Umeclidinium Bromide Inhaler 1 PUFF INHALATION (08:32)
[2022-03-28] MEDS: morphine (oral solution) 10MG/0.5ML Syringe 10 MG SL/PO (08:39)
--- NOTE | 2022-03-28 09:53 | NURSING ---
Report called to [facility], spoke with nurse Yudith.
--- NOTE | 2022-03-29 07:31 | MDS.RN ---
Pain interview for KEVIN 03/28/22 completed 03/26/22
== END 2022-03-28 10:52 | disposition hospice, inpatient (51) | DRG 177 ==
PROVIDERS: Admitting Provider Family Medicine Geriatric Medicine; PCP Internal Medicine; Visit Provider Family Medicine Geriatric Medicine
DX: B37.1 Pulmonary candidiasis (principal); I21.4 Non-ST elevation (NSTEMI) myocardial infarction; D68.2 Hereditary deficiency of other clotting factors; I13.2 Hypertensive heart and chronic kidney disease with heart failure and with stage 5 chronic kidney disease, or end stage renal disease; J96.11 Chronic respiratory failure with hypoxia; C34.90 Malignant neoplasm of unspecified part of unspecified bronchus or lung; J44.0 Chronic obstructive pulmonary disease with (acute) lower respiratory infection; J44.1 Chronic obstructive pulmonary disease with (acute) exacerbation; N18.5 Chronic kidney disease, stage 5; I50.22 Chronic systolic (congestive) heart failure; E11.22 Type 2 diabetes mellitus with diabetic chronic kidney disease; I48.91 Unspecified atrial fibrillation; I25.10 Atherosclerotic heart disease of native coronary artery without angina pectoris; E78.5 Hyperlipidemia, unspecified; K21.9 Gastro-esophageal reflux disease without esophagitis; M10.271 Drug-induced gout, right ankle and foot; M10.272 Drug-induced gout, left ankle and foot; Z87.891 Personal history of nicotine dependence; Z79.82 Long term (current) use of aspirin; Z79.01 Long term (current) use of anticoagulants; Z79.899 Other long term (current) drug therapy; G47.00 Insomnia, unspecified; R13.10 Dysphagia, unspecified; F32.A Depression, unspecified
CPT/HCPCS: 36415; 36600; 71046; 74018; 74230; 80048; 82803; 82962; 85025; 85610; 87070; 87205; 87426; 87493; 92507; 92526; 92610; 92611; 94640; 94667; 94668; 97110; 97116; 97161; 97166; 97530; 97535; 99251; 99406; G0463

== ENCOUNTER 2022-03-20 12:17 | Emergency (ER) | payer MEDICARE, MEDICAID, SELFPAY ==
[2022-03-20 12:18] VITALS: BP 116/50; PULSE 66; RESP 22; TEMP 36.2; O2SAT 100; BMI 13.2
--- NOTE | 2022-03-20 12:28 | VDUE_ITS ---
Reason For Study: Swelling Left Proximal Left jugular vein is spontaneous, widely patent, phasic, with no intraluminal echogenicity noted. Left subclavian vein is spontaneous, widely patent, phasic, with no intraluminal echogenicity noted. Left Arm Left axillary vein is spontaneous, patent, phasic, competent, compressible and demonstrates augmentation. Left brachial vein is compressible. Left cephalic vein is compressible. Left basilic vein is compressible. Left Lower Arm Left radial vein is compressible. Left ulnar vein is compressible. Patient Safety Preliminary report to Franci. VL/Venous Duplex US, Unilateral Interpretation Summary No evidence for acute deep venous thrombosis[left] upper extremity with patent and compressible cephalic and basilic veins. Ordering Physician: Jeanne Koroma Referring Physician: Yudith Rosales Performed By: Eden Acosta RVT ?
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
[2022-03-20 14:24] VITALS: BP 201/97; RESP 16; O2SAT 98
--- NOTE | 2022-03-20 14:28 | ED.RN ---
THIS RN CALLED REPORT TO TCU. PT EDUCATED ON DISCHARGE INSTRUCTIONS AND VERBAL INSTRUCTIONS. PT VERBALIZES UNDERSTANDING AND DENIES ANY FURTHER QUESTIONS. ON DISCHARGE PT BP 201/97. ED MD AWARE. REPORTS CALLED TO TCU AND THEY REPORT PT IS OK TO COME TO THE FLOOR AND NURSE REPORTS UNDERSTANDING OF ELEVATED BP.
[2022-03-20 14:32] VITALS: BP 201/97; PULSE 64; RESP 16; O2SAT 97
== END 2022-03-20 14:33 ==
PROVIDERS: Emergency Provider Emergency Medicine; PCP Internal Medicine; Visit Provider Emergency Medicine
DX: R22.32 Localized swelling, mass and lump, left upper limb (principal); I48.91 Unspecified atrial fibrillation; R58 Hemorrhage, not elsewhere classified; I25.10 Atherosclerotic heart disease of native coronary artery without angina pectoris; Z87.891 Personal history of nicotine dependence; Z79.01 Long term (current) use of anticoagulants
CPT/HCPCS: 93971; 99282